=== PATIENT | female | born 1940 | race Caucasian/White ===

== ENCOUNTER → 2023-04-02 14:13 | Outpatient (REF) | payer MEDICARE, BC, SELFPAY | LOC: RAD 14:13 | PROVIDERS: ATTENDING PHYSICIAN Family Medicine | DX: R22.41 Localized swelling, mass and lump, right lower limb (principal) | CPT/HCPCS: 93971 ==

== ENCOUNTER 2023-04-04 15:27 | Emergency (ER) | payer MEDICARE, BC, SELFPAY ==
[2023-04-04 15:33] VITALS: BP 120/71; BMI 40.7
[2023-04-04 15:45] VITALS: BP 151/72
[2023-04-04 16:00] VITALS: BP 92/64
[2023-04-04 17:52] LABS: % Basophils 0.4 % (0-2); % Eosinophils 5.5 % (0-6); % Immature Granulocytes 0.4 % (0-0.5); % Lymphocytes 22.2 % (20.5-51.1); % Monocytes 8.3 % (1.7-9.3); % Neutrophils 63.2 % (42.2-75.2); Absolute Eosinophils 0.4 10^3/uL (0-0.7); Absolute Lymphocytes 1.7 10^3/uL (1.2-3.4); Absolute Monocytes 0.6 10^3/uL (0.1-0.6); Absolute Neutrophils 4.8 10^3/uL (1.4-6.5); Hematocrit 41.9 % (37.0-47.0); Hemoglobin 13.9 g/dL (12.0-16.0); Mean Corp Hgb Conc. 33.2 g/dL (33.0-37.0); Mean Corpuscular Hgb 28.4 pg (27.0-31.0); Mean Corpuscular Volume 85.5 fL (81.0-99.0); Mean Platelet Volume 9.8 fL (7.4-10.4); Nucleated Red Blood Cells % 0 %; Platelet Count 180 10^3/uL (130-400); Red Cell Dist. Width 15.8 % (11.5-14.5); White Blood Cell Count 7.6 10^3/uL (4.8-10.8)
[2023-04-04 18:06] LABS: ALT (SGPT) 23 U/L (0-35); AST (SGOT) 32 U/L (14-36); Albumin 3.8 g/dl (3.5-5.0); Alkaline Phosphatase 97 U/L (38-126); Blood Urea Nitrogen 14 mg/dl (7-17); Calcium 8.9 mg/dl (8.4-10.2); Carbon Dioxide 34 mmol/L (22-30); Chloride 96 mmol/L (98-107); Creatine Phosphokinase 103 U/L (30-135); Estimated Creatinine Clearance 73 ml/min; Glucose 84 mg/dl (70-99); Potassium 3.8 mmol/L (3.5-5.1); Sodium 134 mmol/L (135-145); Total Bilirubin 1.3 mg/dl (0.2-1.3); Total Protein 6.5 g/dl (6.3-8.2); eGFR > 60.00
--- NOTE | 2023-04-04 18:41 | ED.GENMED ---
History of Present Illness
General
Chief Complaint: DVT/Possible Blood Clot
Time Seen by Provider: 04/04/23 15:38
Travel History
Have you had any contact with someone who has COVID-19?: No
Do you have any symptoms of coronavirus? Fever > 100 degrees, chills, cough, shortness of breath, sore throat, loss of taste or smell, muscle aches, or headache?: No
History of Present Illness
History of Present Illness:
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 Had an outpatient DVT
ultrasound performed 2 days ago that was negative. She denies any injuries but does have to utilize the right leg for transfers frequently. She feels as though her chronic edema of the leg as well as redness of the right lower leg is worsened. No
fevers or chills. Denies any paresthesias to the leg.
Past History
Past History
ED Past Medical History: HTN, Hypercholesterolemia and Other (DVT, cervical disc disease, osteoarthritis, MRSA, DVT/PE); Negative Arrthythmia or IDDM
ED Past Surgical History: Orthopedic (Cervical-lumbar fusion, right shoulder replacement 2014, left knee replacement)
Social History
Tobacco: Non-smoker
Alcohol: None
Drug: None
Personal:
Living: with family
Employment: Retired
Family History
Family History: Hypertension
Review of Systems
Review of Systems
Allergies reviewed?: Yes
All Other Systems: ROS reviewed and negative except as documented in HPI and ROS
Phy Exam
Physical Exam
Physical Exam:
GEN: Well appearing, NAD, WDWN
Eyes: PERRLA, EOMs intact, no scleral icterus
HENT: NCAT, oral mucosa moist
Lungs: CTAB, no wheezes, rales, rhonchi, normal chest wall excursion
Cardiac: RRR, no M/R/G, no peripheral edema. Radial pulses 2+ bilat
Abdomen: S, NT, ND, NABS, no masses or hepatosplenomegaly
Neuro: AO x 3, no focal deficits to BUE/BLE, normal sensation throughout
MSK: Status post left BKA. Diffuse edema to the right leg noted to the knee. There is tenderness to the quadriceps musculature, pain is made worse with right knee flexion however flexion is normal. There is venous stasis dermatitis to the right
lower extremity, mild blanching with palpation. Right dorsalis pedis pulses 2+, sensation fully intact, no pallor
Skin: No rashes, petechiae. Normal color, no pallor or jaundice.
Psych: Calm, cooperative, proper hygiene
Course
Orders/Labs/Results
Orders:
Orders
04/04/23 16:14
CR Femur - Right Min 2 Vw Urgent
Comment:
Reason For Exam: non traumatic thigh pain
04/04/23 16:15
Blood Culture Q30M
WILLIAM Source: Blood/Venous
Specimen Description:
04/04/23 17:38
CPK [Creatine Phosphokinase] Urgent
Complete Blood Count/With Diff Urgent
Comprehensive Metabolic Panel Urgent
04/04/23 17:39
Blood Culture Q30M
WILLIAM Source: Blood/Venous
Specimen Description:
Abnormal Lab Results
04/04/23
17:38
RDW 15.8 H %
(11.5-14.5)
Sodium 134 L mmol/L
(135-145)
Chloride 96 L mmol/L
(98-107)
Carbon Dioxide 34 H mmol/L
(22-30)
Creatinine 0.5 L mg/dL
(0.6-1.0)
04/04/23 17:38
04/04/23 17:38
Vital Signs
Initial and Last Documented VS:
Initial Vital Signs
Temp Pulse Resp BP Pulse Ox
98.1 F 94 18 120/71 94
04/04/23 15:33 04/04/23 15:33 04/04/23 15:33 04/04/23 15:33 04/04/23 15:33
Last Documented Vital Signs
Temp Pulse Resp BP Pulse Ox
98.1 F 76 17 92/64 95
04/04/23 15:33 04/04/23 17:45 04/04/23 17:45 04/04/23 16:00 04/04/23 17:00
MDM/Problems Addressed
MDM/Problems Addressed:
Labs were obtained to evaluate for leukocytosis or elevated CK suggesting significant myositis or deep tissue infection. These test were reassuring. No need for repeat imaging from a DVT standpoint given that it was -2 days ago. Right femur x-ray
independently interpreted by me as negative for acute osseous abnormality. Likely soft tissue strain as a result of patient's need to balance herself on the leg for transfers. Pain is quite reproducible and there is no crepitus or erythema can
suggestive of an infectious etiology. She has strong pedal pulses and sensation thus do not suspect arterial insufficiency or peripheral arterial disease as a culprit. Will refer her to outpatient physical therapy given that we cannot prescribe
NSAIDs due to her blood thinner use
*Critical Care Note
Total Time (30-74mins, 75-104mins- exclusive of procedures): Not Applicable
ED Attending Note
-
Portions of this chart may have been created with voice recognition software.� Occasional wrong word or��sound alike� substitutions may have occurred due to the inherent limitations of voice recognition software.
Discharge Plan
Departure
Patient Disposition: Home (Routine Discharge)
Date of Disposition: 04/04/23
Time of Disposition: 18:44
Patient with high blood pressure during this ER visit?: No
Discharge Problem:
Strain of right quadriceps muscle
Instructions: Muscle Strain ED
Prescriptions:
No Action
atorvastatin [Lipitor] 40 MG tablet
40 mg PO HS
albuterol sulfate [Ventolin HFA] 90 MCG/PUFF HFA aerosol inhaler
2 puff inhalation R Q4HPRN PRN (Reason: sob)
vitamin B complex Capsule
1 cap PO DAILY
Refresh Optive 0.5-0.9 % Drops
1 drp BOTH EYES QIDPRN PRN (Reason: dry eyes)
cholecalciferol (vitamin D3) [Vitamin D3] 25 mcg (1,000 unit) Tablet,Chewable
50 mcg PO DAILY
ropinirole 2 MG tablet
8 mg PO QID@04,10,16,22
tramadol 50 mg Tablet
50 mg PO Q6H PRN (Reason: moderate to severe pain) Qty: 0
Patient Comments:
04/04/2023: last filled 08/31/22, 92 tabs for 23 days from [id number]
Eliquis 5 MG tablet
5 mg PO BID
pregabalin 150 mg capsule
150 mg PO BID
Patient Comments:
04/04/2023: last filled 01/01/23, 180 tabs for 90 days from [id number]
omeprazole 40 mg capsule,delayed release(DR/EC)
40 mg PO DAILY
nadolol 40 mg tablet
40 mg PO HS
Referrals:
Stef Flores MD [Family Provider] -
Interventions
Interventions:
*Risk Screen - Suicide Last Done: 04/04/23 15:33
*General Assessment Last Done: 04/04/23 15:33
*Neglect/Abuse Screening Last Done: 04/04/23 15:33
ED- Fall Risk Assessment Last Done: 04/04/23 17:51
*ED COVID-19 Vaccine History Last Done: 04/04/23 15:33
ED- Cardiac Assessment Last Done: 04/04/23 15:33
ED- Pulmonary Assessment Last Done: 02/21/24 16:06
ED-Peripheral Vascular Assessment Last Done: 04/04/23 15:33
ED-Skin Assessment Last Done: 04/04/23 15:33
== END 2023-04-04 19:52 | disposition home or self-care (01) ==
LOC: EMR 15:27
PROVIDERS: Physician Assistant; EMERGENCY PHYSICIAN Emergency Medicine; FAMILY PHYSICIAN Family Medicine
DX: S76.111A Strain of right quadriceps muscle, fascia and tendon, initial encounter (principal); X58.XXXA Exposure to other specified factors, initial encounter; I10 Essential (primary) hypertension; E78.00 Pure hypercholesterolemia, unspecified
CPT/HCPCS: 99284; 73552; 80053; 82550; 85025; 87040

== ENCOUNTER → 2023-05-15 12:28 | Outpatient (REF) | payer MEDICARE, BC, SELFPAY | LOC: MRI 12:28 | PROVIDERS: ATTENDING PHYSICIAN Student in an Organized Health Care Education/Training Program; PRIMARYCARE PHYSICIAN Family Medicine | DX: M25.551 Pain in right hip (principal); M54.16 Radiculopathy, lumbar region | CPT/HCPCS: 72148 ==

== ENCOUNTER 2023-09-03 13:11 | Emergency (ER) | payer MEDICARE, BC, SELFPAY ==
[2023-09-03 13:15] VITALS: BP 110/60
--- NOTE | 2023-09-03 13:39 | ED.GENMED ---
History of Present Illness
General
Chief Complaint: Abdominal Symptoms
Source: patient
Exam Limitations: none
Time Seen by Provider: 09/03/23 13:38
Nursing documentation reviewed up to this point in time: agreed with
History of Present Illness
History of Present Illness:
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
week, wound care nurse one day a week. She does not want us to deal with her wound as this was seen, cleansed and dressed by wound care nurse today. She is here with her nurse at bedside for general weakness, SOB, nausea and poor appetite past 3
days. Denies fever/chills. Denies chest pain, no SOB at rest but with exertion. Denies abdominal pain, other than the intermittent left side abd pain she's had since her bowel resection. Does feel nauseous, has had dry heaves 1-2 times daily for
past 3 days, last episode was 3 a.m. today. Denies diarrhea or constipation. Last BM 4 days ago which she states she only goes twice a week typically.
Past History
Past History
ED Past Medical History: HTN, Hypercholesterolemia and Other (DVT, cervical disc disease, osteoarthritis, MRSA, DVT/PE); Negative Arrthythmia or IDDM
ED Past Surgical History: Orthopedic (Cervical-lumbar fusion, right shoulder replacement 2014, left knee replacement)
Social History
Tobacco: Non-smoker
Alcohol: None
Drug: None
Personal:
Living: with family
Employment: Retired
Family History
Family History: Hypertension
Review of Systems
Review of Systems
Allergies reviewed?: Yes
All Other Systems: ROS reviewed and negative except as documented in HPI and ROS
Constitutional: Reports fatigue; Denies fever or chills
Respiratory: Reports trouble breathing (SOB with exertion)
Cardiac: Denies chest pain, diaphoresis, palpitations or syncope
ABD/GI: Reports abdominal pain, nausea, vomiting (retching, not actually vomiting) and anorexia; Denies diarrhea, constipated, bloody stools or black stools
: Denies dysuria, frequency or difficulty voiding
Musculoskeletal: Reports other (chronic lymphedema RLE)
Skin: Reports other (chronic wound RLE followed by Derm Dr. Castañeda. 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 Is on second regimen of Bactrim this month, on day 6 of 14. )
Neurological: Reports no symptoms
Phy Exam
Physical Exam
Physical Exam:
GENERAL: No acute distress. A&Ox3.
CONSTITUTIONAL: Afebrile.
EYES: PERRL, conjunctivae normal
Neck: Supple
ENMT: moist mucus membranes, Pharynx nl
RESPIRATORY: Regular respirations, nonlabored, lungs clear.
CARDIOVASCULAR: Regular rate and rhythm, no murmurs, no rubs.
GI: Soft, nontender, normal BS
MUSCULOSKELETAL: Moves with ease. Well perfused.
SKIN: Warm, dry, pink
PSYCH: Normal mood and affect. Well kept, interactive and appropriate
NEUROLOGIC: Awake, alert and oriented. No focal neurological deficits
Course
Orders/Labs/Results
Orders:
Orders
09/03/23 14:02
Electrocardiogram (*1) Urgent
Reason for Study: Chest Pain
Cardiac Monitoring- Treatment ONCE
EKG- Treatment ONCE
IV Insert/Care/Rem.- Treatment PRN
09/03/23 14:03
Ondansetron Injectable [Zofran] 4 mg IV NOW STA
CR Chest - 2 Views Urgent
Comment:
Reason For Exam: SOB
09/03/23 14:14
Complete Blood Count/With Diff Urgent
Comprehensive Metabolic Panel Urgent
Lipase Urgent
NT-proBNP Urgent
Troponin I Urgent
09/03/23 14:41
Urinalysis Reflex To Culture Urgent
Date Specimen was Collected: 09/03/23
Time Specimen was Collected: 14:37
09/03/23 16:21
Ondansetron Injectable [Zofran] 4 mg .ROUTE .STK-MED ONE
Abnormal Lab Results
09/03/23 09/03/23
14:14 14:41
RDW 15.9 H %
(11.5-14.5)
Carbon Dioxide 31 H mmol/L
(22-30)
Glucose 107 H mg/dl
(70-99)
Total Protein 6.1 L g/dl
(6.3-8.2)
Urine Bilirubin 1+ A
(Negative)
09/03/23 14:14
09/03/23 14:14
Vital Signs
Initial and Last Documented VS:
Initial Vital Signs
Temp Pulse Resp BP Pulse Ox
98.1 F 74 18 110/60 96
09/03/23 13:15 09/03/23 13:15 09/03/23 13:15 09/03/23 13:15 09/03/23 13:15
Last Documented Vital Signs
Temp Pulse Resp BP Pulse Ox
98.1 F 63 20 110/55 95
09/03/23 13:15 09/03/23 16:30 09/03/23 16:30 09/03/23 16:00 09/03/23 16:00
MDM/Problems Addressed
Differential Diagnosis Includes:
CHF, UTI, dehydration.
MDM/Problems Addressed:
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
week, wound care nurse one day a week. She does not want us to deal with her wound as this was seen, cleansed and dressed by wound care nurse today. She is here with her nurse at bedside for general weakness, SOB, nausea and poor appetite past 3
days. Denies fever/chills. Denies chest pain, no SOB at rest but with exertion. Denies abdominal pain, other than the intermittent left side abd pain she's had since her bowel resection. Does feel nauseous, has had dry heaves 1-2 times daily for
past 3 days, last episode was 3 a.m. today. Denies diarrhea or constipation. Last BM 4 days ago which she states she only goes twice a week typically.
EKG NSR
CBC normal
CMP normal
Troponin normal
BNP normal
UA negative
Chest x-ray no active pulmonary process
Nothing worrisome in today's workup, patient is stable for discharge
She has close nursing care daily. DC's to care of her nurse
Chronic conditions affecting care: HTN and Arrhythmia (Afib on eliquis)
*Critical Care Note
Total Time (30-74mins, 75-104mins- exclusive of procedures): Not Applicable
Patient Management
Social determinants of health affecting care: Strong social support
ED Attending Note
-
Portions of this chart may have been created with voice recognition software.� Occasional wrong word or��sound alike� substitutions may have occurred due to the inherent limitations of voice recognition software.
Discharge Plan
Departure
Patient Disposition: Home (Routine Discharge)
Date of Disposition: 09/03/23
Time of Disposition: 15:57
Patient with high blood pressure during this ER visit?: No
Condition: Good
Discharge Problem:
Nausea, FLORES (dyspnea on exertion)
Instructions: Nausea and Vomiting, Adult (DC), Shortness of Breath, Adult ED
Prescriptions:
New
ondansetron 4 mg tablet,disintegrating
4 mg PO Q8H PRN (Reason: nausea and vomiting) 4 Days Qty: 10 0RF
No Action
atorvastatin [Lipitor] 40 MG tablet
40 mg PO HS
albuterol sulfate [Ventolin HFA] 90 MCG/PUFF HFA aerosol inhaler
2 puff inhalation R Q4HPRN PRN (Reason: sob)
Refresh Optive 0.5-0.9 % Drops
2 drp BOTH EYES BIDPRN PRN (Reason: dry eyes)
ropinirole 2 MG tablet
8 mg PO TID
Eliquis 5 MG tablet
5 mg PO BID
pregabalin 150 mg capsule
150 mg PO BID
omeprazole 40 mg capsule,delayed release(DR/EC)
40 mg PO DAILY
nadolol 40 mg tablet
40 mg PO DAILY
ipratropium-albuterol 0.5 mg-3 mg(2.5 mg base)/3 mL Solution For Nebulization
3 ml INHALATION R Q6HPRN PRN (Reason: sob)
Theragen Tablet
1 tab PO DAILY
Aquaphor Ointment
1 applic TOPICAL TIDPRN PRN (Reason: dry skin)
sulfamethoxazole-trimethoprim [Bactrim DS] 800-160 mg Tablet
1 tab PO BID
acetaminophen [Tylenol Extra Strength] 500 mg Tablet
1,000 mg PO Q8HPRN PRN (Reason: mild pain)
ascorbic acid (vitamin C) [Vitamin C] 500 mg Tablet
500 mg PO DAILY
bumetanide 1 mg Tablet
1 mg PO MOWEFR
mupirocin 2 % Ointment
1 applic TOPICAL DAILY
cyclobenzaprine 5 mg Tablet
0.25 mg PO HSPRN PRN (Reason: muscle spasms)
cholecalciferol (vitamin D3) [Vitamin D3] 25 mcg (1,000 unit) Tablet
25 mcg PO DAILY
Unknown Antifungal cream
1 applic topical DAILY
Referrals:
Stef Flores MD [Family Provider] - Follow up in 5-7 days
Activity Restrictions/Additional Instructions:
As we discussed, there is nothing worrisome in your workup here today. Specifically no sign of a heart attack, congestive heart failure or infection.
I sent a prescription to your pharmacy for Zofran to use if needed for nausea.
See you doctor in 5-7 days for recheck
Interventions
Interventions:
*Risk Screen - Suicide Last Done: 09/03/23 13:15
*General Assessment Last Done: 09/03/23 13:15
*Neglect/Abuse Screening Last Done: 09/03/23 13:15
ED- Fall Risk Assessment Last Done: 09/03/23 13:48
*ED COVID-19 Vaccine History Last Done: 09/03/23 13:15
*Nursing Disposition Last Done: 09/03/23 16:54
JG-Lrrvbq-Lkkhfdhexn Assessment Last Done: 09/03/23 14:04
Discharge Date and Time
Discharge Date/Time: 09/03/23 16:56
Print Language: PRYDEINIG
--- NOTE | 2023-09-03 13:42 | EDRN ---
Pt took her Requip at 13:33 for her restless leg.
[2023-09-03 13:45] VITALS: BMI 38.2
--- NOTE | 2023-09-03 13:45 | EDRN ---
Leandro CHAPA in room w/pt.
[2023-09-03 14:04] VITALS: BP 95/77
[2023-09-03 14:24] LABS: % Basophils 0.7 % (0-2); % Eosinophils 3.3 % (0-6); % Immature Granulocytes 0.3 % (0-0.5); % Lymphocytes 29.9 % (20.5-51.1); % Monocytes 7.1 % (1.7-9.3); % Neutrophils 58.7 % (42.2-75.2); Absolute Basophils 0.1 10^3/uL (0-0.2); Absolute Eosinophils 0.2 10^3/uL (0-0.7); Absolute Lymphocytes 2.2 10^3/uL (1.2-3.4); Absolute Monocytes 0.5 10^3/uL (0.1-0.6); Absolute Neutrophils 4.3 10^3/uL (1.4-6.5); Hematocrit 40.8 % (37.0-47.0); Hemoglobin 13.5 g/dL (12.0-16.0); Mean Corp Hgb Conc. 33.1 g/dL (33.0-37.0); Mean Corpuscular Hgb 28.1 pg (27.0-31.0); Mean Platelet Volume 9.9 fL (7.4-10.4); Nucleated Red Blood Cells % 0 %; Platelet Count 259 10^3/uL (130-400); Red Cell Dist. Width 15.9 % (11.5-14.5); White Blood Cell Count 7.4 10^3/uL (4.8-10.8)
--- NOTE | 2023-09-03 14:30 | EDRN ---
Pt having POX 81-90% on room air and placed on oxygen at 2lpm via NC. IMoon CHAPA notified of POX and oxygen.
[2023-09-03 14:45] LABS: ALT (SGPT) 21 U/L (0-35); AST (SGOT) 35 U/L (14-36); Albumin 3.6 g/dl (3.5-5.0); Alkaline Phosphatase 71 U/L (38-126); Blood Urea Nitrogen 13 mg/dl (7-17); Calcium 9.3 mg/dl (8.4-10.2); Carbon Dioxide 31 mmol/L (22-30); Chloride 99 mmol/L (98-107); Estimated Creatinine Clearance 62 ml/min; Glucose 107 mg/dl (70-99); Lipase 130 U/L (23-300); Potassium 4.6 mmol/L (3.5-5.1); Sodium 135 mmol/L (135-145); Total Bilirubin 0.6 mg/dl (0.2-1.3); Total Protein 6.1 g/dl (6.3-8.2); eGFR > 60.00
[2023-09-03 14:50] LABS: NT-proBNP 504 pg/ml; Troponin I < 0.012 ng/ml
[2023-09-03 15:02] LABS: Urine Albumin Negative (Neg - Trace); Urine Bilirubin 1+ (Negative); Urine Character Clear (Clear); Urine Color Yellow; Urine Glucose Negative (Negative); Urine Ketone Negative (Negative); Urine Leukocyte Negative (Negative); Urine Nitrite Negative (Negative); Urine Occult Blood Negative (Negative); Urine Urobilinogen Negative (Neg - 1+)
[2023-09-03 15:24] VITALS: BP 109/50
[2023-09-03 16:00] VITALS: BP 110/55
--- NOTE | 2023-09-03 16:00 | EDRN ---
Leandro Bland BANQUET COOK in to see pt.
--- NOTE | 2023-09-03 16:20 | EDRN ---
Pt having no further nausea at this time. Pt rated nausea on arrival at 4/10 and said it was 2/10 at 16:20.
[2023-09-03] MEDS: ZOFRAN 4 MG IV (16:23)
== END 2023-09-03 16:56 | disposition home or self-care (01) ==
LOC: EMR 13:11
PROVIDERS: Registered Nurse; EMERGENCY PHYSICIAN Emergency Medicine; FAMILY PHYSICIAN Family Medicine
DX: R11.2 Nausea with vomiting, unspecified (principal); R06.09 Other forms of dyspnea; R53.1 Weakness; R63.0 Anorexia; R10.9 Unspecified abdominal pain; T81.30XA Disruption of wound, unspecified, initial encounter; X58.XXXA Exposure to other specified factors, initial encounter; I48.91 Unspecified atrial fibrillation; I10 Essential (primary) hypertension; E78.00 Pure hypercholesterolemia, unspecified; K21.9 Gastro-esophageal reflux disease without esophagitis; M19.90 Unspecified osteoarthritis, unspecified site; I89.0 Lymphedema, not elsewhere classified; E03.9 Hypothyroidism, unspecified; M50.90 Cervical disc disorder, unspecified, unspecified cervical region; G47.30 Sleep apnea, unspecified; M81.0 Age-related osteoporosis without current pathological fracture; Z96.652 Presence of left artificial knee joint; Z96.611 Presence of right artificial shoulder joint; Z96.653 Presence of artificial knee joint, bilateral; Z79.01 Long term (current) use of anticoagulants; M43.22 Fusion of spine, cervical region; Z98.1 Arthrodesis status; Z98.0 Intestinal bypass and anastomosis status; Z89.512 Acquired absence of left leg below knee; Z86.14 Personal history of Methicillin resistant Staphylococcus aureus infection; Z86.73 Personal history of transient ischemic attack (TIA), and cerebral infarction without residual deficits; Z86.718 Personal history of other venous thrombosis and embolism; Z86.711 Personal history of pulmonary embolism; Z88.1 Allergy status to other antibiotic agents; Z88.0 Allergy status to penicillin; Z88.8 Allergy status to other drugs, medicaments and biological substances; Z91.048 Other nonmedicinal substance allergy status
CPT/HCPCS: 99284; 96374; 51701; 71046; 80053; 81003; 83690; 83880; 84484; 85025; 93005

== ENCOUNTER 2023-09-04 18:25 | Inpatient (IN) | payer MEDICARE, BC, SELFPAY ==
[2023-09-04] VITALS (31 sets, daily range): BP systolic 67–161; BP diastolic 41–124; BMI 39.9; BMI 39.7
--- NOTE | 2023-09-04 16:24 | ED.GENMED ---
History of Present Illness
General
Chief Complaint: Blood Pressure Problem
Source: home health care provider
Time Seen by Provider: 09/04/23 16:12
History of Present Illness
History of Present Illness:
83-year-old female presents to the emergency room for lethargy, confusion, abnormal vital signs at home. Patient brought in by her visiting nurse. Patient was seen yesterday for malaise. Workup at that time did not reveal any significant lab
abnormalities. Her urine did not show signs of infection. Patient has chronic wounds on her right lower extremity and is taking Bactrim. Patient evidently fell early in the morning try to get a bed. 911 was called to help her back in the bed.
When visiting nurse came today they found her in the above state. Her pulse ox was low in the 80s. Her fingers appeared blue per the nurse. Upon arrival to the emergency room here the patient is found to be hypotensive.
Past History
Past History
ED Past Medical History: HTN, Hypercholesterolemia and Other (DVT, cervical disc disease, osteoarthritis, MRSA, DVT/PE); Negative Arrthythmia or IDDM
ED Past Surgical History: Orthopedic (Cervical-lumbar fusion, right shoulder replacement 2014, left knee replacement)
Social History
Tobacco: Non-smoker
Alcohol: None
Drug: None
Personal:
Living: with family
Employment: Retired
Family History
Family History: Hypertension
Phy Exam
Physical Exam
Physical Exam:
General: Very confused, not able to answer questions, appears ill
Vitals: Febrile, hypotensive, hypoxic
Head: Atraumatic
Eyes: Pupils equal, EOMI
Throat: Airway intact, no exudates, dry mucosa
Neck: Trachea midline
Lungs: Clear and equal b/l
Heart: Regular rate, no murmurs
Abd: Soft, no apparent tenderness, No pulsatile mass
Neuro: Grossly nonfocal
Skin: Warm, dry, no rash
Extremities: Left AKA, decreased pulse right lower extremity
Course
Orders/Labs/Results
Orders:
Orders
09/04/23 Dinner
Regular
At Your Request: Limited Participation
09/04/23 16:10
Electrocardiogram (*1) Urgent
Reason for Study: Other
Other Reason for Exam: Possible Sepsis
Cardiac Monitoring- Treatment ONCE
EKG- Treatment ONCE
IV Insert/Care/Rem.- Treatment PRN
O2 Therapy [RESP] Urgent
Titrate/Wean O2 to maintain O2 sat greater than (%): 93
Special Instructions: TO MAINTAIN CONTINUOUS O2 SATS > OR = 93%
Pulse Ox/cont/shift [RESP] Urgent
Quantity: 1
Special Instructions: CONTINUOUS
09/04/23 16:13
Complete Blood Count/With Diff Urgent
Comprehensive Metabolic Panel Urgent
Lactic Acid Q4H
Comment: ON ICE, CANCEL 2ND ORDER IF FIRST LACTIC ACID LEVEL <2
09/04/23 16:20
Blood Culture Urgent
WILLIAM Source: Blood/Venous
Specimen Description:
09/04/23 16:22
Cardiac Monitoring- Treatment ONCE
0.9% Sodium Chloride 1000 ml [Nss] 1,400 ml IV NOW STA
Cefepime HCl [Maxipime] 2,000 mg IV NOW STA
CR Chest Portable - 1 View Urgent
Comment:
Reason For Exam: hypotension
Reason Study Needs to be Portable: Patient Unstable
09/04/23 16:27
COVID-19 Antigen Urgent
Source: Nasal Swab
09/04/23 16:40
Vancomycin [Vancocin] 2,000 mg 0.9% Sodium Chloride 500 ml [Nss] 500 ml IV NOW
09/04/23 17:18
0.9% Sodium Chloride 500 ml [Nss] 500 ml IV BOLUS
09/04/23 17:30
0.9% Sodium Chloride 1000 ml [Nss] 1,000 ml IV 200 mls/hr
09/04/23 17:52
Admit/Transfer Patient As Directed
Co-Sign Provider:
Level of Care: Inpatient admission
Assign to:: ICU
Physician / Group: jose antonio
Diagnosis: sepsis secondary to right lower extremity infection
Reason for Hospitalization: sepsis right lower extremity cellulitis/wounds
Expected length of stay greater than two midnights?: Yes
ELOS- Estimated Length of Stay in days: 2
I certify the patient meets the requirements for IP care: Yes
09/04/23 17:53
Code Status As Directed
Resuscitation Status: Full Code
09/04/23 18:00
Dexamethasone Sod Phosphate [Decadron] 6 mg IV Q24H
09/04/23 18:22
Wound Culture [Wound/Abscess/Other Culture] Urgent
WILLIAM Source: Leg
Specimen Description: Right
Date Specimen was Collected: 09/04/23
Time Specimen was Collected: 18:16
09/04/23 19:42
0.9% Sodium Chloride 1000 ml [Nss] 1,000 ml IV 100 mls/hr
Acetaminophen [Tylenol] 650 mg PO Q4HPRN PRN
Albuterol [ProAIR HFA INHALER] 2 puff INH R Q4HPRN PRN
Ipratropium/Albuterol Sulfate [Duoneb] 3 ml INH R Q6HPRN PRN
Ondansetron Injectable [Zofran] 4 mg IV Q6HPRN PRN
Polyethylene Glycol Powder [Miralax] 17 grams PO DAILY
VANCOMYCIN Pharmacy to Dose [VANCOCIN Pharmacy to Dose] 1 each Pharmacy To Prepare [Call Pharmacy To Prepare] 0 ml IV PER PROTOCOL
09/04/23 19:42
WOUND/OSTOMY CONSULT Routine
Reason for Consult: right leg infection
VTE Contraindication Routine
VTE Mechanical Device Contraindication: Medical Contraindication
Pharmocologic Contraindication: Medical Contraindication
Activity As Directed
Activity Level: As Tolerated
Vital Signs As Directed
Frequency: Per unit guidelines
09/04/23 19:52
Cyclobenzaprine HCl [Flexeril] 5 mg PO HSPRN PRN
09/04/23 19:56
Petrolatum/Mineral Oil [Hydrophor] See Dose Instructions TOPICAL TIDPRN PRN
09/04/23 19:57
Artificial Tears (Pf) [Refresh Eye Drops (Pf)] 2 drops BOTH EYES BIDPRN PRN
09/04/23 20:00
Apixaban [Eliquis] 5 mg PO BID
Atorvastatin [Lipitor] 40 mg PO DAILY@1999
Docusate Sodium [Colace] 100 mg PO BID
Pregabalin [Lyrica] 150 mg PO BID
Ropinirole [Requip] 8 mg PO TID@0800,1400,1999
09/04/23 20:15
Lactic Acid Q4H
Comment: ON ICE, CANCEL 2ND ORDER IF FIRST LACTIC ACID LEVEL <2
09/05/23 04:00
Cefepime HCl [Maxipime] 2,000 mg IV Q12H
09/05/23 06:00
Complete Blood Count/With Diff IN AM
Comprehensive Metabolic Panel IN AM
09/05/23 08:00
Ascorbic Acid [Vitamin C] 500 mg PO DAILY
Cholecalciferol (Vitamin D3) [VITAMIN D3 (cholecalciferol)] 25 mcg PO DAILY
Multivitamin [Theragran] 1 tablet PO DAILY
Mupirocin [Bactroban 2% Ointment] See Dose Instructions TOPICAL DAILY
Nadolol [Corgard] 40 mg PO DAILY
Pantoprazole [Protonix] 40 mg PO DAILY
Abnormal Lab Results
09/04/23 09/04/23
16:13 16:27
MCHC 32.7 L g/dL
(33.0-37.0)
RDW 16.1 H %
(11.5-14.5)
Absolute Lymphs (auto) 0.8 L 10^3/uL
(1.2-3.4)
Neutrophils % 77.8 H %
(42.2-75.2)
Lymphocytes % 10.8 L %
(20.5-51.1)
Potassium 5.3 H mmol/L
(3.5-5.1)
Carbon Dioxide 34 H mmol/L
(22-30)
Total Protein 5.6 L g/dl
(6.3-8.2)
Albumin 3.1 L g/dl
(3.5-5.0)
SARS-CoV-2 Antigen Positive A
(Negative)
09/04/23 16:13
09/04/23 16:13
Vital Signs
Initial and Last Documented VS:
Initial Vital Signs
Temp Pulse Resp BP Pulse Ox
101.1 F H 91 19 76/49 93
09/04/23 15:59 09/04/23 15:59 09/04/23 15:59 09/04/23 15:59 09/04/23 15:59
Last Documented Vital Signs
Temp Pulse Resp BP Pulse Ox
99.8 F 67 13 138/70 96
09/04/23 21:59 09/04/23 22:15 09/04/23 22:15 09/04/23 22:00 09/04/23 22:15
MDM/Problems Addressed
Differential Diagnosis Includes:
sepsis from.....uti/pneumonia/wound infection/covid.
MDM/Problems Addressed:
Pt did have + covid. She also has hypoxia and hypotension. Her BP initially responded to ivf with MAP >65 after sepsis fluid bolus. Additional bolus and normal saline infusion ordered. Pt started on broad spectrum antibiotics (cefepime and
vanco) Pt has tolerated Keflex in the past. Pt roosevelt has covid with bacterial co-infection. She has left pleural effusion vs pneumonia on one-view chest x-ray.
Chronic conditions affecting care: HTN and Arrhythmia (a fib)
*Radiology
Radiology exam reviewed: preliminary read by ED provider (left pleural effusion/infiltrate)
*Pulse Oximetry
Patient hypoxic: yes
*EKG
Interpreted by ED Provider?: Yes
Interpretation: normal
Heart Rate: 78
Rate: normal
Rhythm: sinus
Barron: normal axis
Interval: normal interval
QRS Pattern: normal QRS
Ischemia: no ischemia
*Molder Punch Interpretation
Rate: normal
Interpretation: normal
Rhythm: sinus
*Critical Care Note
Total Time (30-74mins, 75-104mins- exclusive of procedures): 35 min
comment:
Critical care statement: A total of 35 minutes of critical care time was provided for this patient. This includes management of unstable vital signs, evaluation of the patient at bedside, reviewing the patient's pertinent medical records, discussion
with consultants, review of old EKGs and review of pertinent medical records. This time with separate from time utilized to perform the aforementioned documented procedures
ED Attending Note
-
Portions of this chart may have been created with voice recognition software.� Occasional wrong word or��sound alike� substitutions may have occurred due to the inherent limitations of voice recognition software.
Discharge Plan
Departure
Patient Disposition: Admit
Date of Disposition: 09/04/23
Time of Disposition: 17:27
Admit to: IMU
Presentation/result/management discussed w/ accepting MD/DO: Hospitalist
Condition: Serious
Discharge Problem:
Sepsis, COVID-19, Cellulitis of leg, right
Interventions
Interventions:
*Risk Screen - Suicide Last Done: 09/04/23 15:59
*General Assessment Last Done: 09/04/23 15:59
*Neglect/Abuse Screening Last Done: 09/04/23 15:59
ED- Fall Risk Assessment Last Done: 09/04/23 19:50
*ED COVID-19 Vaccine History Last Done: 09/04/23 19:50
*Nursing Disposition Last Done: 09/04/23 19:50
ED- Cardiac Assessment Last Done: 09/04/23 16:07
ED- Neurological Assessment Last Done: 09/04/23 16:07
ED- Pulmonary Assessment Last Done: 09/04/23 16:07
Discharge Date and Time
Discharge Date/Time: 09/04/23 19:51
[2023-09-04 16:26] LABS: % Basophils 0.3 % (0-2); % Eosinophils 3.2 % (0-6); % Immature Granulocytes 0.3 % (0-0.5); % Lymphocytes 10.8 % (20.5-51.1); % Monocytes 7.6 % (1.7-9.3); % Neutrophils 77.8 % (42.2-75.2); Absolute Eosinophils 0.2 10^3/uL (0-0.7); Absolute Lymphocytes 0.8 10^3/uL (1.2-3.4); Absolute Monocytes 0.5 10^3/uL (0.1-0.6); Absolute Neutrophils 5.4 10^3/uL (1.4-6.5); Hematocrit 38.5 % (37.0-47.0); Hemoglobin 12.6 g/dL (12.0-16.0); Mean Corp Hgb Conc. 32.7 g/dL (33.0-37.0); Mean Corpuscular Hgb 28.3 pg (27.0-31.0); Mean Corpuscular Volume 86.3 fL (81.0-99.0); Mean Platelet Volume 9.5 fL (7.4-10.4); Nucleated Red Blood Cells % 0 %; Platelet Count 212 10^3/uL (130-400); Red Blood Cell Count 4.46 10^6/uL (4.20-5.40); Red Cell Dist. Width 16.1 % (11.5-14.5)
[2023-09-04] MEDS: MAXIPIME 2000 MG IV (16:31)
[2023-09-04] MEDS: NSS 1400 ML IV (16:31)
[2023-09-04 16:35] LABS: ALT (SGPT) 19 U/L (0-35); AST (SGOT) 30 U/L (14-36); Albumin 3.1 g/dl (3.5-5.0); Alkaline Phosphatase 71 U/L (38-126); Blood Urea Nitrogen 12 mg/dl (7-17); Calcium 8.4 mg/dl (8.4-10.2); Carbon Dioxide 34 mmol/L (22-30); Chloride 101 mmol/L (98-107); Estimated Creatinine Clearance 61 ml/min; Glucose 91 mg/dl (70-99); Lactic Acid 1.1 mmol/L (0.7-2.0); Potassium 5.3 mmol/L (3.5-5.1); Sodium 136 mmol/L (135-145); Total Bilirubin 0.4 mg/dl (0.2-1.3); Total Protein 5.6 g/dl (6.3-8.2); eGFR > 60.00
[2023-09-04 16:51] LABS: COVID-19 Antigen Positive (Negative)
[2023-09-04] MEDS: VANCOCIN 540 MG IV (16:58)
[2023-09-04] MEDS: NSS 500 IV (17:25)
--- NOTE | 2023-09-04 17:58 | HPS.HSE ---
Family Physician
-
Family Physician: Stef Flores
Chief Complaint
-
malaise
History of Present Illness
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
thyroidectomy, presenting for lethargy and confusion and abnormal vital signs at home. Today patient was nauseous and had an episode of vomiting. History obtained from visiting nurse.
Patient came to the emergency room yesterday and was seen for malaise. Workup at that time was negative for UTI or any lab abnormalities. Patient has chronic wounds in her right lower extremity for the past few months which are chronically
draining and is taking Bactrim for past 2 weeks. She was refusing to see wound care. She recently had a wound culture few weeks ago which showed stenotrophomonas
She evidently fell early in the morning and 911 was called to help her get back into the bed. When visiting nurse arrived they found her pulse ox was low in the 80s. Fingers appeared blue. Patient was hypotensive upon arrival to the emergency
room.
Patient denies any shortness of breath or cough. Her currently has COVID.
Patient is complaining of abdominal pain. She has not had a bowel movement in 4 days and has not been compliant with Colace. No diarrhea.
Patient does not smoke or drink alcohol.
Medical History
Past Medical History
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
Past Surgical History: Reports Other ( Orthopedic (Cervical-lumbar fusion, right shoulder replacement 2014, left knee replacement))
Social History
Tobacco: Non-smoker
Alcohol: None
Drug: None
Family History
Family History: Not pertinent
Allergies / Home Medications
Allergies reflects when Allergies were last updated in [facility].
Home Medications with original date entered in [facility]
Allergy/Medication List:
Allergies
Allergy/AdvReac Type Severity Reaction Status Date / Time
adhesive [Adhesive] Allergy Itching/RED Verified 09/04/23 15:58
NESS
Aminoglycosides Allergy Pharmacy Verified 09/04/23 15:58
to Review
azithromycin [Azithromycin] Allergy Pharmacy Verified 09/04/23 15:58
to Review
cefazolin Allergy Pharmacy Verified 09/04/23 15:58
to Review
celecoxib [From Celebrex] Allergy started to Verified 09/04/23 15:58
break out
with sores
Cephalosporins Allergy Pharmacy Verified 09/04/23 15:58
to Review
clindamycin [Clindamycin] Allergy Pharmacy Verified 09/04/23 15:58
to Review
- just
took in
April
doxycycline Allergy Pharmacy Verified 09/04/23 15:58
to Review
erythromycin base Allergy CHEST PAIN Verified 09/04/23 15:58
furosemide [From Lasix] Allergy 'just Verified 09/04/23 15:58
doesn't
feel good'
kanamycin Allergy Pharmacy Verified 09/04/23 15:58
to Review
Penicillins Allergy pt denies; Verified 09/04/23 15:58
says had
in 02/24
Tetracyclines Allergy Unknown Verified 09/04/23 15:58
Home Medications
albuterol sulfate 90 mcg/actuation aerosol inhaler (Ventolin HFA) 2 puff inhalation R Q4HPRN PRN sob 06/22/20
atorvastatin 40 mg tablet (Lipitor) 40 mg PO HS High cholesterol 06/22/20
carboxymethylcellulose 0.5 %-glycerin 0.9 % eye drops (Refresh Optive) 2 drp BOTH EYES BIDPRN PRN dry eyes 07/25/22
ropinirole 2 mg tablet 8 mg PO TID Neurological Condition 07/25/22
apixaban 5 mg tablet (Eliquis) 5 mg PO BID 04/04/23
nadolol 40 mg tablet 40 mg PO DAILY 04/04/23
omeprazole 40 mg capsule,delayed release 40 mg PO DAILY 04/04/23
pregabalin 150 mg capsule 150 mg PO BID 04/04/23
Unknown Antifungal 1 applic topical DAILY 09/03/23
acetaminophen 500 mg tablet (Tylenol Extra Strength) 1,000 mg PO Q8HPRN PRN mild pain 09/03/23
ascorbic acid (vitamin C) 500 mg tablet (Vitamin C) 500 mg PO DAILY 09/03/23
bumetanide 1 mg tablet 1 mg PO MOWEFR 09/03/23
cholecalciferol (vitamin D3) 25 mcg (1,000 unit) tablet (Vitamin D3) 25 mcg PO DAILY 09/03/23
cyclobenzaprine 5 mg tablet 5 mg PO HSPRN PRN muscle spasms 09/03/23
ipratropium 0.5 mg-albuterol 3 mg (2.5 mg base)/3 mL nebulization soln 3 ml inhalation R Q6HPRN PRN sob 09/03/23
mineral oil-hydrophil petrolat topical ointment 1 applic topical TIDPRN PRN dry skin 09/03/23
mupirocin 2 % topical ointment 1 applic topical DAILY right leg 09/03/23
sulfamethoxazole 800 mg-trimethoprim 160 mg tablet (Bactrim DS) 1 tab PO BID 09/03/23
therapeutic multivitamin 1 tab PO DAILY 09/03/23
ondansetron 4 mg disintegrating tablet 4 mg PO Q8HPRN PRN nausea and vomiting 09/04/23
Review of Systems
-
History Source: Patient
A 12 point ROS was completed and negative except as noted: Yes
Constitutional: Reports No Symptoms
EENT: Reports No Symptoms
Respiratory: Reports No Symptoms
Cardiac: Reports No Symptoms
Abdomen/GI: Reports See HPI
: Reports No Symptoms
Musculoskeletal: Reports No Symptoms
Skin: Reports See HPI
Neurological: Reports No Symptoms
Endocrine: Reports No Symptoms
Hematologic/Lymphatic: Reports No Symptoms
Psych: Reports No Symptoms
Physical Exam
Vital Signs
Vital Signs
Temp Pulse Resp BP Pulse Ox
101.1 F H 80 14 93/70 93
09/04/23 16:30 09/04/23 16:30 09/04/23 16:30 09/04/23 16:30 09/04/23 16:30
Physical Exam
General: Well Developed, Well Nourished and No Apparent Distress
HEENT: NormoCephalic, Moist mucous membranes and Atraumatic
Respiratory: Clear
Cardiac: S1/S2 and Regular Rhythm; No Murmur or Rub
GI: Soft, Non Distended, Normal Bowel Sounds and Tender (diffusely ); No Organomegaly
Rectal: Deferred by Provider
Musculoskeletal: No Clubbing, No Cyanosis and No Edema
Skin: Other (right leg swelling, erythema, discharge ); No Rash
Neuro: Nonfocal/grossly intact
Laboratory Results
-
09/04/23 16:13
09/04/23 16:13
Laboratory Results
Lactic Acid 1.1 mmol/L (0.7-2.0) 09/04/23 16:13
Total Bilirubin 0.4 mg/dl (0.2-1.3) 09/04/23 16:13
AST 30 U/L (14-36) 09/04/23 16:13
ALT 19 U/L (0-35) 09/04/23 16:13
Alkaline Phosphatase 71 U/L (38-126) 09/04/23 16:13
Data Reviewed
-
Lab Data: Labs Reviewed by me
Old Records: Reviewed
Impression/Plan
-
IMPRESSION:
PLAN:
# Sepsis (fever, hypotension) likely source chronic right lower extremity cellulitis superimposed on underlying lymphedema
-Picture from visiting nurse show diffuse erythema and weeping of right lower extremity possibly secondary to underlying lymphedema
-Wound culture recently grew stenotrophomonas
-Check wound culture, blood cultures
-IV fluids, hold Bumex
-Vancomycin/cefepime
-Wound care consulted
# Hypoxic respiratory insufficiency secondary to COVID infection
-On 3 L oxygen
-Chest x-ray shows opacity involving the left lateral costophrenic angle, patchy parenchymal opacity within the left lower lung which could be atelectasis versus pneumonia
-Dexamethasone 6 mg daily
# Hyperkalemia secondary to Bactrim
-Hold Bactrim
# Abdominal pain secondary to constipation
-No bowel movement in 4 days
-Start MiraLAX, Colace
History of CVA
History of PE/DVT
Paroxysmal atrial fibrillation
-Continue Eliquis
Chronic HFpEF
-Hold Bumex
-Continue nadolol
Essential hypertension
Hyperlipidemia
-Continue statin
GERD
-Continue omeprazole
Restless leg syndrome
-Continue ropinirole
Spinal stenosis
-Continue cyclobenzaprine
Neuropathy
-Continue pregabalin
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
History of partial thyroidectomy
Morbid obesity
Full code
DVT prophylaxis�Eliquis
Regular diet
[2023-09-04] MEDS: DECADRON 6 MG IV (18:08)
[2023-09-04] MEDS: NSS 1000 IV (18:09)
[2023-09-04] MEDS: LEVOPHED 250 IV (18:40)
--- NOTE | 2023-09-04 20:09 | PHA.VAN.IN ---
Assessment
- Assessment
Renal Function: Appears similar to baseline
Maximum Temperature: 101.1 F rectal 09/03 @ 1559
Concomitant Antimicrobials: cefepime
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
- Previous Dosing Experience
Previous Regimen: vanc 1000mg Q12H
Date of Regimen: 08/20/18 - 08/26/18
Provided Trough of: 9 - dose was then adjusted to vanc 1250mg Q12H but no further levels drawn
Patient's SCR is: Similar to previous dosing experience
Patient's weight is: Similar to previous dosing experience
Plan
- Plan
Initial / Loading Dose: vanc 2000mg administered in ED @ 1658
Maintenance Regimen: dosing by level for now
Monitoring: random level 09/04 0600
Pharmacokinetics Vancomycin I
- -
Patient Age: 83
Patient Sex: Female
Vancomycin Day #: 1
Indication: Skin And Soft Tissue
Requesting Provider: Dr. Lazo
Pertinent Antimicrobial Allergies:
aminoglycosides - unknown
azithromycin - unknown
doxycyline - unknown
erythromycin - chest pain
kanamycin - unknown
penicillin - unknown
Height / Weight:
Height 5 ft
Actual Weight 92.1 kg
Pertinent Past Medical History: L AKA 08/2018 d/t septic knee, BMI ~40
- Vital Signs / Lab Results
Temp Pulse Resp BP Pulse Ox
98.9 F 77 22 135/65 96
09/04/23 18:19 09/04/23 19:52 09/04/23 19:52 09/04/23 19:25 09/04/23 19:52
Lab Results - Hematology
09/04/23
16:13
WBC 7.0
Lab Results - Chemistry
09/04/23
16:13
BUN 12
Creatinine 0.7
Estimated Creat Clear 61
Albumin 3.1 L
09/04/23
16:13
Lactic Acid 1.1
Lab Results - Urine
09/04/23
16:13
Urine Nitrite (Reflex) Cancelled
Leukocyte Esterase Rfl Cancelled
Microbiology Results
09/04/23 18:22 Gram Stain - Preliminary
Leg - Right
[2023-09-04] MEDS: TYLENOL 650 MG PO (20:39)
[2023-09-04] MEDS: COLACE 100 MG PO (20:39)
[2023-09-04] MEDS: REQUIP 8 MG PO (20:40)
[2023-09-04] MEDS: ELIQUIS 5 MG PO (20:40)
[2023-09-04] MEDS: LIPITOR 40 MG PO (20:40)
[2023-09-04] MEDS: LYRICA 150 MG PO (20:40)
[2023-09-04] MEDS: MIRALAX 17 GRAMS PO (20:40)
[2023-09-04] MEDS: NSS IV (21:08)
--- NOTE | 2023-09-04 22:00 | PTCARENOTE ---
Received patient from the ER on 3L NC. sats in the mid 90's. pt desatting to the low 80's when asleep placed on the simple mask 6L. alert and orientated x3 but confused at times. c/o pain in the left leg Tylenol given. meds taken whole in apple
sauce.
--- NOTE | 2023-09-04 23:11 | W.PN.SEPSIS ---
Sepsis
Vital Signs
Temp Pulse Resp BP Pulse Ox
99.8 F 67 13 138/70 96
09/04/23 21:59 09/04/23 22:15 09/04/23 22:15 09/04/23 22:00 09/04/23 22:15
Physical Exam
Physical Exam:
A focused exam was performed after fluid resuscitation.
Capillary Refill
Lower Extremity:
[place] Time: Less than 3 sec
Pulse Evaluation
Posterior Tibial:
Pulse Evaluation: Present
[2023-09-05] VITALS (27 sets, daily range): BP systolic 91–135; BP diastolic 45–97
--- NOTE | 2023-09-05 02:35 | PTCARENOTE ---
levo off at 0230am.
[2023-09-05] MEDS: MAXIPIME 2000 MG IV (04:41)
[2023-09-05] MEDS: STERILE WATER FOR INJECTION 10 ML IV ×3 (04:42→18:05)
[2023-09-05 04:44] LABS: % Basophils 0.2 % (0-2); % Immature Granulocytes 0.4 % (0-0.5); % Lymphocytes 9.9 % (20.5-51.1); % Monocytes 0.9 % (1.7-9.3); % Neutrophils 88.6 % (42.2-75.2); Absolute Lymphocytes 0.6 10^3/uL (1.2-3.4); Absolute Monocytes 0.1 10^3/uL (0.1-0.6); Hematocrit 40.9 % (37.0-47.0); Hemoglobin 12.9 g/dL (12.0-16.0); Mean Corp Hgb Conc. 31.5 g/dL (33.0-37.0); Mean Corpuscular Hgb 28.9 pg (27.0-31.0); Mean Corpuscular Volume 91.7 fL (81.0-99.0); Mean Platelet Volume 9.2 fL (7.4-10.4); Nucleated Red Blood Cells % 0 %; Platelet Count 189 10^3/uL (130-400); Red Blood Cell Count 4.46 10^6/uL (4.20-5.40); Red Cell Dist. Width 15.9 % (11.5-14.5); White Blood Cell Count 5.7 10^3/uL (4.8-10.8)
[2023-09-05 04:53] LABS: INR 1.46; PT 17.8 Sec (11.4-14.6)
[2023-09-05 04:54] LABS: APTT 36.2 Sec (23.4-35.0)
[2023-09-05 05:13] LABS: ALT (SGPT) 19 U/L (0-35); AST (SGOT) 26 U/L (14-36); Alkaline Phosphatase 75 U/L (38-126); Blood Urea Nitrogen 9 mg/dl (7-17); Calcium 8.1 mg/dl (8.4-10.2); Carbon Dioxide 27 mmol/L (22-30); Chloride 106 mmol/L (98-107); Estimated Creatinine Clearance 71 ml/min; Glucose 170 mg/dl (70-99); Potassium 5.1 mmol/L (3.5-5.1); Sodium 137 mmol/L (135-145); Total Bilirubin 0.3 mg/dl (0.2-1.3); Total Protein 5.5 g/dl (6.3-8.2); eGFR > 60.00
[2023-09-05 05:36] LABS: Vancomycin Random 12.2 ug/ml
--- NOTE | 2023-09-05 06:25 | PTCARENOTE ---
wound care done on right lower leg. skin tear below the right knee. Vaseline gauze, abd, and sid wrapped. lower calf weeping redressed with Vaseline gauze, abd, and isd wraps.
--- NOTE | 2023-09-05 07:28 | CON.INTV ---
Consultation
Consultation Request
Date/Time Consultation Requested: 09/05/2023-8 AM
Date/Time Consultation Performed: 09/01/2023-8 AM
Requesting Provider: Hospitalist
Performing Provider: Dr. Merida
Reason for Consultation: Sepsis
Medical History
-
Chief Complaint: Sepsis
History of Present Illness:
83-year-old with a history of DVT/PE, CVA, atrial fibrillation on Eliquis, chronic heart failure preserved EF, hypertension, hyperlipidemia, restless legs, left AKA who presented with fevers and hypotension felt to be septic noted to be covid
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 Patient feels much improved this morning. She denies any shortness of breath at rest, chest pain, chest tightness, mucus, productive cough, pleurisy, hemoptysis,
abdominal pain, nausea, vomiting, weakness or lower extremity swelling.
Past Medical History
Past Medical History: None (Hypertension. Hyperlipidemia. DVT/PE. Atrial fibrillation/Eliquis. Chronic heart failure preserved EF. GERD. RLS. RG/CPAP intolerant. Asthma. Spinal stenosis. Neuropathy. 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 )
Past Surgical History: None (Partial thyroidectomy. Left knee replacement. Renal artery stenting. Hysterectomy. Right shoulder replacement. Laminectomy. Breast biopsy. Colon resection. BKA 2019. Spinal fusion.)
Social History
Tobacco: Non-smoker
Alcohol: None
Drug: None
Living: With Family
Occupational Exposures: No known asbestos exposure
Environmental Exposures: No known tuberculosis exposure
Family History
Family History: Reviewed & Not Pertinent
Allergies / Home Medications
Allergies
Allergy/AdvReac Type Severity Reaction Status Date / Time
adhesive [Adhesive] Allergy Itching/RED Verified 09/04/23 15:58
NESS
Aminoglycosides Allergy Pharmacy Verified 09/04/23 15:58
to Review
azithromycin [Azithromycin] Allergy Pharmacy Verified 09/04/23 15:58
to Review
celecoxib [From Celebrex] Allergy started to Verified 09/04/23 15:58
break out
with sores
doxycycline Allergy Pharmacy Verified 09/04/23 15:58
to Review
erythromycin base Allergy CHEST PAIN Verified 09/04/23 15:58
kanamycin Allergy Pharmacy Verified 09/04/23 15:58
to Review
Penicillins Allergy pt denies; Verified 09/04/23 15:58
says had
in 02/24
furosemide [From Lasix] AdvReac 'just Verified 09/04/23 19:11
doesn't
feel good'
- takes
bumetanide
at home
09/04/23
Home Medications
�Medication �Instructions �Recorded �Confirmed �Last Taken �Type
albuterol sulfate 90 mcg/actuation 2 puff inhalation R Q4HPRN PRN sob 06/22/20 09/04/23 09/03/23 History
aerosol inhaler (Ventolin HFA)
atorvastatin 40 mg tablet (Lipitor) 40 mg PO HS High cholesterol 06/22/20 09/04/23 09/03/23 History
carboxymethylcellulose 0.5 2 drp BOTH EYES BIDPRN PRN dry eyes 07/25/22 09/04/23 Unknown History
%-glycerin 0.9 % eye drops
(Refresh Optive)
ropinirole 2 mg tablet 8 mg PO TID Neurological Condition 07/25/22 09/04/23 09/04/23 History
apixaban 5 mg tablet (Eliquis) 5 mg PO BID 04/04/23 09/04/23 09/04/23 History
nadolol 40 mg tablet 40 mg PO DAILY 04/04/23 09/04/23 09/04/23 History
omeprazole 40 mg capsule,delayed 40 mg PO DAILY 04/04/23 09/04/23 09/04/23 History
release
pregabalin 150 mg capsule 150 mg PO BID 04/04/23 09/04/23 09/04/23 History
Unknown Antifungal 1 applic topical DAILY 09/03/23 09/04/23 09/03/23 History
acetaminophen 500 mg tablet 1,000 mg PO Q8HPRN PRN mild pain 09/03/23 09/04/23 3 Days Ago History
(Tylenol Extra Strength) ~08/31/23
ascorbic acid (vitamin C) 500 mg 500 mg PO DAILY 09/03/23 09/04/23 09/04/23 History
tablet (Vitamin C)
bumetanide 1 mg tablet 1 mg PO MOWEFR 09/03/23 09/04/23 09/03/23 History
cholecalciferol (vitamin D3) 25 25 mcg PO DAILY 09/03/23 09/04/23 09/04/23 History
mcg (1,000 unit) tablet (Vitamin
D3)
cyclobenzaprine 5 mg tablet 5 mg PO HSPRN PRN muscle spasms 09/03/23 09/04/23 08/31/23 History
ipratropium 0.5 mg-albuterol 3 mg 3 ml inhalation R Q6HPRN PRN sob 09/03/23 09/04/23 09/03/23 History
(2.5 mg base)/3 mL nebulization
soln
mineral oil-hydrophil petrolat 1 applic topical TIDPRN PRN dry 09/03/23 09/04/23 09/03/23 History
topical ointment skin
mupirocin 2 % topical ointment 1 applic topical DAILY right leg 09/03/23 09/04/23 09/04/23 History
sulfamethoxazole 800 1 tab PO BID 09/03/23 09/04/23 09/04/23 History
mg-trimethoprim 160 mg tablet
(Bactrim DS)
therapeutic multivitamin 1 tab PO DAILY 09/03/23 09/04/23 09/04/23 History
ondansetron 4 mg disintegrating 4 mg PO Q8HPRN PRN nausea and 09/04/23 09/04/23 Unknown History
tablet vomiting
Review of Systems
-
Unable to Obtain full review of systems at this time due to: Other (Per HPI)
Vitals / Labs / Diagnostic Testing
Vital Signs
Temp Pulse Resp BP Pulse Ox
99.1 F 51 15 110/56 98
09/05/23 05:18 09/05/23 06:15 09/05/23 06:15 09/05/23 05:30 09/05/23 05:00
Lab Data
09/05/23 04:31
09/05/23 04:31
Laboratory Results
09/05/23
04:31
PT 17.8 H
INR 1.46
APTT 36.2 H
Microbiology
09/04/23 18:22 Leg - Right Gram Stain - Preliminary
Diagnostic Testing:
Physical Exam
-
Exam:
Well-nourished and well-developed in no apparent distress
HEENT-atraumatic, normocephalic
Neck-supple, no JVD, no bruit
Heart-regular rate and rhythm-no murmurs, rubs or gallops
Chest-clear to auscultation, no wheezes, crackles
Back-no tenderness
Abdomen-soft, nontender, nondistended, no hepatosplenomegaly
Extremities-no cyanosis, clubbing, no edema, BKA
Integument-intact, no rashes, lesions or ecchymosis
Neurology-alert and oriented, nonfocal motor and sensory exam
Assessment
-
83-year-old with a history of DVT/PE, CVA, atrial fibrillation on Eliquis, chronic heart failure preserved EF, hypertension, hyperlipidemia, restless legs, left AKA who presented with fevers and hypotension felt to be septic noted to be covid
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
Sepsis with shock unresponsive to fluids requiring pressors
Covid positive-3 previous vaccinations-no recent booster
Left lower lobe atelectasis/small effusion/possible pneumonia
Hyperglycemia
Conditions present prior to admission:
Hypertension.
Hyperlipidemia.
DVT/PE.
Atrial fibrillation/Eliquis.
Chronic heart failure preserved EF.
GERD.
RLS.
RG/CPAP intolerant.
Asthma.
Spinal stenosis.
Neuropathy.
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
Partial thyroidectomy. Left knee replacement. Renal artery stenting. Hysterectomy. Right shoulder replacement. Laminectomy. Breast biopsy. Colon resection. BKA 2019. Spinal fusion.
Plan
Admit patient to medical intensive care unit for persistent hypotension despite fluid resuscitation requiring pressors
Supplement oxygen as needed
High flow oxygen if needed
BiPAP if necessary
Intubate and mechanically ventilate if necessary
Aspiration precautions
Nebulizers if needed
Obtain cultures
Empiric antibiotics
Consider Infectious disease consultation
Monitor leukocytosis
Fluid resuscitation with 30 mL/kg crystalloid-preferably lactated ringer-(less ALEJANDRA) with subsequent boluses as needed
Monitor lactate
Follow CVP if possible
Attempt noninvasive bedside tissue perfusion evaluation to see if fluid bolus responsive
Measure pulse pressure and stroke volume variation if patient on ventilator, passively breathing without arrhythmia and with temporary large tidal volume ventilation and if > 13% then likely fluid bolus responsive
If patient active then consider measuring bedside leg lift for 3 minutes and if cardiac output increases or if there is a rise of 2-4 on end-tidal CO2 then fluid bolus
If bedside ultrasound available then measure IVC diameter variation to evaluate for fluid bolus responsiveness
Begin pressors as needed for MAP goal of 65-Norepinephrine first, then Vasopressin and consider Angiotensin II if continues to be hypotensive
Consider methylene blue if available-specific inhibitor of induced nitric oxide synthase iNOS and its downstream enzyme soluble guanylate cyclase-noninferiority study shown to reduce time to vasopressor discontinuation, decreased ICU length of stay,
hospital stay but no change in mortality-published Critical Care 04/24/2022
If persistently hypotensive then consider checking random cortisol-hydrocortisone if random less than 3, if 3-15 then consider ACTH stimulation test
If persistently hyperthermic then correcting hyperthermia can decrease pressor requirements, increased chances of reversal of shock and decrease mortality
covid positive-3 previous vaccinations-no recent booster
Isolation per protocol
Negative pressure room
Decadron 6 mg
DVT prophylaxis-on Eliquis
Early nutrition if possible
Early mobilization/bedside range of motion
If able to be weaned off pressors then transfer out of ICU-pulmonary will follow briefly for hypoxemia/left base atelectasis, effusion
Last seen by Dr. Merida for RG/CPAP intolerance and asthma 01/02/[id number] recommended
Critical care statement: A total of 50 minutes of critical care time was provided for this patient today. This includes management of unstable vital signs, evaluation of the patient at bedside, reviewing the patient's pertinent medical records
including radiographs, pressor management, microbiology, laboratory evaluations, and discussion with primary team, consultants, pharmacy, nutrition, physical therapy, case management, charge nurse, critical care nursing, and respiratory therapy.
Diagnostic data:
Chest x-ray 07/25/22-mild subsegmental atelectasis versus interstitial pneumonia.
Chest x-ray 09/03/2023-low lung volumes, no acute process
Chest x-ray 09/04/2023-left lateral costophrenic angle opacification possibly small pleural effusion, patchy parenchymal opacification left lower lobe atelectasis versus pneumonia
Echocardiogram 07/26/22-year 65-70%, moderate mitral regurgitation, no change since 2020.
HST 03/13/20-ARAVIND-26.6, desaturation alexander 80%, 32.7% of time spent less than 90% saturation.
PFT 01/03/20-FEV1 1.06-64%, FVC 1.4-63%, TLC 107%, RV 161%, DLCO 40%, DLCO/VA 77%. Moderate restriction on spirometry, some hyperinflation on lung volumes, and moderate reduction in diffusing capacity.
Spirometry 10/30/22-FEV1 1.05-64%, FVC 1.47-66%, no significant BD response. Mild to moderate restriction.
Data Reviewed
-
PFT: Report reviewed by me
EKG: Report reviewed by me
Radiology: Image personally visualized and interpreted and Report reviewed by me
CT Scan: Report reviewed by me
Ultrasound: Report reviewed by me
Medical Tests (Nuc Med, Echo etc): Report reviewed by me
Labs: Labs reviewed by me
Old Records: Reviewed
Critical Care Time (in minutes): 50
--- NOTE | 2023-09-05 07:57 | PHA.VAN.FU ---
Vancomycin Assessment / Plan
- Assessment
Renal Function: Stable
WBC's are: WNL
Concomitant Antimicrobials: cefepime
- Assessment - Therapeutic Drug Monitoring
Random Level: 12.2 - drawn ~11.5H after 2g loading dose
- Dosing Plan
Adjust Regimen to: Vanc 750mg Q12H - first dose now then 1800
New Regimen Predicts: AUC (443), Peak (25.5), Trough (12.7)
Dosing Comments: used Vd 0.6 L/kg based on BMI
- Monitoring Plan
No level(s) ordered at this time: consider levels in next few days
- Follow Up
Pharmacy will continue to follow.
Vancomycin Follow UP
- -
Patient Age: 83
Patient Sex: Female
Vancomycin Day #: 2
Indication: Skin And Soft Tissue
Requesting Provider: Dr. Lazo
Pertinent Antimicrobial Allergies:
aminoglycosides - unknown
azithromycin - unknown
doxycyline - unknown
erythromycin - chest pain
kanamycin - unknown
penicillin - unknown
Height / Weight:
Height 5 ft
Actual Weight 92.1 kg
Pertinent Past Medical History: L AKA 08/2018 d/t septic knee, BMI ~40
- Vital Signs / Lab Results
Temp Pulse Resp BP Pulse Ox
99.1 F 51 15 110/56 98
09/05/23 05:18 09/05/23 06:15 09/05/23 06:15 09/05/23 05:30 09/05/23 05:00
Lab Results - Hematology
09/04/23 09/05/23
16:13 04:31
WBC 7.0 5.7
Lab Results - Chemistry
09/04/23 09/05/23
16:13 04:31
BUN 12 9
Creatinine 0.7 0.6
Estimated Creat Clear 61 71
Albumin 3.1 L 3.0 L
09/04/23 09/04/23
16:13 20:15
Lactic Acid 1.1 Cancelled
Lab Results - Urine
09/04/23
16:13
Urine Nitrite (Reflex) Cancelled
Leukocyte Esterase Rfl Cancelled
Microbiology Results
09/04/23 18:22 Gram Stain - Preliminary
Leg - Right
Therapeutic Drug Monitoring
Random Vancomycin 12.2 ug/ml 09/05/23 04:31
[2023-09-05] MEDS: REQUIP 8 MG PO ×3 (07:58→20:41)
[2023-09-05] MEDS: MIRALAX 17 GRAMS PO (07:58)
[2023-09-05] MEDS: COLACE 100 MG PO ×2 (07:59→20:41)
[2023-09-05] MEDS: PROTONIX 40 MG PO (08:02)
[2023-09-05] MEDS: ELIQUIS 5 MG PO ×2 (08:03→20:41)
[2023-09-05] MEDS: LYRICA 150 MG PO ×2 (08:03→20:41)
[2023-09-05] MEDS: VITAMIN C 500 MG PO (08:03)
[2023-09-05] MEDS: VITAMIN D3 (cholecalciferol) 25 MCG PO (08:04)
[2023-09-05] MEDS: THERAGRAN 1 TABLET PO (08:04)
[2023-09-05] MEDS: BACTROBAN 2% OINTMENT 1 APPLIC TOPICAL (08:05)
--- NOTE | 2023-09-05 08:30 | PTCARENOTE ---
Received pt in the bed,, 6L O2 via simple mask, POX 98%. Pt AAOx3, states she's been told she has sleep apnea but does not use a mask at home. Pt weaned to 3L O2 NC, POX 97%. NSS infusing @ 100mL/hr per order. Lungs diminished at the bases, pt
denies cough although moist nonproductive occasional cough noted. Pt states she has phlegm in the morning secondary to 'sinus issues'. Remainder of assessment as documented. Assisted pt to order breakfast. Repositioned; pt resting comfortably in
bed, call schmid on her bedside table.
[2023-09-05] MEDS: VANCOCIN 150 IV ×2 (09:17→18:09)
[2023-09-05] MEDS: NSS 1000 IV (09:25)
--- NOTE | 2023-09-05 10:54 | WOUNDNOTE ---
R KELLER BELOW KNEE
--- NOTE | 2023-09-05 10:54 | WOUNDNOTE ---
R LATERAL LOWER LEG
--- NOTE | 2023-09-05 10:54 | WOUNDNOTE ---
R POSTERIOR LOWER LEG
--- NOTE | 2023-09-05 10:57 | WOUNDNOTE ---
WON RN note: Patient admitted with Sepsis, cellulitis of R leg and COVID-19
See H&P for complete history. VN at home, nurse took patient to ER.
PMH: Left BKA s/t MRSA infection 2018, stroke, pneumonia, DT, HTN, A-fib on Eliquis, neuropathy, spinal stenosis, cervical laminectomy, multiple ortho surgeries, obesity, DVT, Pulmonary embolism, restless leg & venous ulcers.
Wound Location and type/assessment: Patient known to service, last seen 07/26/22 for RLE venous ulcers. Admitted with cellulitis of R leg and multiple weeping areas most of lower leg. Patient assessed along with GN RN Anna assisting. R lateral leg
with patch of venous ulcers, worse compared to when last seen. Patient reports she follows up with silo tender Dr. Castañeda for the wounds on R leg, currently using mupirocin and dry dressing. She has a palpable + pedal pulse and wears Tubigrip
size F at home or sid wrap. R dorsal foot with healing dermal skin rash, no drainage, patient states was a reaction to an unna boot. Using Aquaphor cream to patch of dry skin daily, states patient. R heel and sacrum are intact. L stump intact.
Patient confirmed that she spends much of her day in a wheelchair has offloading cushion. R leg wound culture pending.
Appetite: Good.
Pressure redistribution devices in place: Centrella Max Air, turns with assist. Pillow under R leg.
Plan: R leg applied Xeroform and dry dressing with Tubigrip F knee high. Recommend apply mupirocin when wounds more defined on R lateral leg upon discharge. Foam adhesive applied to R heel. Moisturized dorsal foot and above venous wounds with
Vaseline, will order mineral oil. Patient repositioned to L semi side lying. Will confirm orders with hospitalist. Updated nurse Ghazala. Care plan to be updated. Patient plans to continue to follow up with silo tender for wounds after discharge
and continue with VN.
--- NOTE | 2023-09-05 11:40 | CM ---
CM following re: discharge planning.
Discussed in Rounds, reviewed pt's chart, met with pt.
Pt is an 83 year old female, admitted with primary dx of Sepsis.
Pt reports she lives with spouse in 3 story home, resides on the ground floor, has a ramp to enter the home. Patient uses a motorized WC, has a walker, handicap accessible bathroom with grab bars, raised toilet seat. Patient reports she has left
AKA, able to transfer herself independently to and from motorized wheelchair, has had [facility] in the past
PCP: Stef Flores
Pharmacy: [facility]
D/C plan: pt expressed her desire to return back home with services.
CM will follow with discharge plan updates as hospitalization progresses
[2023-09-05] MEDS: MAXIPIME 1000 MG IV ×2 (12:08→18:05)
[2023-09-05 12:18] LABS: Glucose - Point of Care 167 mg/dl (70-99)
[2023-09-05] MEDS: NOVOLOG FLEXPEN-LOW RESISTANCE 1 UNITS SC (13:02)
--- NOTE | 2023-09-05 13:15 | PTCARENOTE ---
Pt reassessed; O2 weaned from 3L NC to 2L NC, pt tolerating with POX 93-97%, remainder of assessment unchanged. Pt seen by wound care, RLE dressings changed by wound care, wound care orders obtained. Lunch ordered, Novolog added, accuchek 167, 1
unit given, see APR.
[2023-09-05] MEDS: NSS IV (17:04)
--- NOTE | 2023-09-05 17:09 | PTCARENOTE ---
Assessment unchanged, pt assist x2 OOB to chair. Fluids d/c'd, downgrade to telemetry orders obtained, pt updated on POC.
[2023-09-05 17:11] LABS: Glucose - Point of Care 115 mg/dl (70-99)
--- NOTE | 2023-09-05 17:15 | W.PN.HOSP.TC ---
Today's Communication/Plan
-
transfer OOICU
ID consult
Assessment / Plan
Assessment / Plan
# Sepsis (fever, hypotension) likely source chronic right lower extremity cellulitis superimposed on underlying lymphedema
-Picture from visiting nurse show diffuse erythema and weeping of right lower extremity possibly secondary to underlying lymphedema
-Wound culture recently grew stenotrophomonas
-Check wound culture, blood cultures
-IV fluids will be stopped, but continue to hold Bumex
-Vancomycin/cefepime
-Wound care consulted
Will plan ID consult tomorrow
# Hypoxic respiratory insufficiency secondary to COVID infection
-On room air to 2 L oxygen
-Chest x-ray shows opacity involving the left lateral costophrenic angle, patchy parenchymal opacity within the left lower lung which could be atelectasis versus pneumonia
-Dexamethasone 6 mg daily
# Hyperkalemia secondary to Bactrim
-Hold Bactrim
Better 5.3-->5.1
# Abdominal pain secondary to constipation
-No bowel movement in 4 days
-Start MiraLAX, Colace
History of CVA
History of PE/DVT
Paroxysmal atrial fibrillation
-Continue Eliquis
Chronic HFpEF
-Hold Bumex
-Continue nadolol
Essential hypertension
Hyperlipidemia
-Continue statin
GERD
-Continue omeprazole
Restless leg syndrome
-Continue ropinirole
Spinal stenosis
-Continue cyclobenzaprine
Neuropathy
-Continue pregabalin
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
History of partial thyroidectomy
Morbid obesity
Full code
DVT prophylaxis�Eliquis
Regular diet
transfer OOICU
Anticipated Discharge: > 48 hours
Subjective/Interval History
-
Date of Service: September 05, 2023
Denies sob
Objective Data
-
Vital Signs:
Vital Signs
Temp Pulse Resp BP Pulse Ox
98.6 F 70 18 105/55 96
09/05/23 15:05 09/05/23 13:00 09/05/23 13:00 09/05/23 13:00 09/05/23 13:24
I&O
09/04/23 09/05/23 09/06/23
06:59 06:59 06:59
Intake Total 1142.5 / 1242.5 1919 / 192
Output Total 1200 / 1200 900 / 900
Balance -57.5 / 42.5 1020 / 1020
Review of Systems
-
History Source: Patient and Coordinated Provider
Constitutional: Reports Fever (Tmax 101.1)
Respiratory: Reports No Symptoms
Cardiac: Reports No Symptoms
Abdomen/GI: Reports No Symptoms
Genitourinary: Reports No Symptoms
Physical Exam
-
General: Well Developed, Well Nourished and No Apparent Distress
HEENT: Normocephalic, Atraumatic and Moist Mucous Membranes
Respiratory: Clear to Auscultation; Negative Wheezes, Rales or Rhonchi
Cardiac: Regular Rhythm and S1/S2
GI: Soft, Nontender and Nondistended
Musculoskeletal: No Clubbing, No Cyanosis and Other (left AKA)
Neuro: Awake, Alert and Oriented
[2023-09-05] MEDS: NOVOLOG FLEXPEN-LOW RESISTANCE SC (18:02)
[2023-09-05] MEDS: DECADRON 6 MG IV (18:07)
--- NOTE | 2023-09-05 20:00 | PTCARENOTE ---
Rec'd pt OOB in chair. To return to bed, ceiling lift utilized. Pt pleasant/cooperative/very chatty. Pt oriented but talk in circles at times and gets herself confused. Once she realizes, she reorients herself. No c/o pain at this time. Afebrile.
VSS. 2L nasal cannula, desat 88% with O2 off. Nonproductive cough noted, runny nose at times. Tolerating regular diet. Bowel regimen added to med list, due for BM. Positive flatus. Purewick in place and draining clear yellow urine. Will monitor.
[2023-09-05] MEDS: LIPITOR 40 MG PO (20:41)
[2023-09-05 22:27] LABS: Glucose - Point of Care 189 mg/dl (70-99)
[2023-09-05] MEDS: NOVOLOG FLEXPEN 1 UNITS SC (23:21)
[2023-09-06] VITALS (7 sets, daily range): BP systolic 112–165; BP diastolic 57–83; BMI 39.7
[2023-09-06] MEDS: MAXIPIME 1000 MG IV ×5 (00:21→23:49)
[2023-09-06] MEDS: STERILE WATER FOR INJECTION 10 ML IV ×5 (00:22→23:49)
--- NOTE | 2023-09-06 01:00 | PTCARENOTE ---
CHG provided, teeth brushed. No SOB with activity. Pt shifting weight in bed. Refuses to be propped with a pillow, insists on staying supine for majority of shift thus far. Pt assisted to offload weight every few hours. Skin on back CDI. Pt educated
on importance of turning. Pt adamant about taking stocking dressing off leg. Zhang dressing remains intact. Stockinette at bedside till morning. Will monitor.
[2023-09-06] MEDS: TYLENOL PO (02:53)
[2023-09-06] MEDS: FLEXERIL 5 MG PO ×2 (02:54→23:48)
[2023-09-06 03:19] LABS: % Immature Granulocytes 0.3 % (0-0.5); % Lymphocytes 16.7 % (20.5-51.1); % Monocytes 4.3 % (1.7-9.3); % Neutrophils 78.7 % (42.2-75.2); Absolute Monocytes 0.3 10^3/uL (0.1-0.6); Absolute Neutrophils 4.5 10^3/uL (1.4-6.5); Hematocrit 37.5 % (37.0-47.0); Hemoglobin 11.7 g/dL (12.0-16.0); Mean Corp Hgb Conc. 31.2 g/dL (33.0-37.0); Mean Corpuscular Hgb 28.1 pg (27.0-31.0); Mean Corpuscular Volume 90.1 fL (81.0-99.0); Mean Platelet Volume 9.5 fL (7.4-10.4); Nucleated Red Blood Cells % 0 %; Platelet Count 183 10^3/uL (130-400); Red Blood Cell Count 4.16 10^6/uL (4.20-5.40); Red Cell Dist. Width 15.7 % (11.5-14.5); White Blood Cell Count 5.8 10^3/uL (4.8-10.8)
[2023-09-06 04:00] LABS: Carbon Dioxide 29 mmol/L (22-30); Estimated Creatinine Clearance 71 ml/min; eGFR > 60.00
[2023-09-06 04:12] LABS: Blood Urea Nitrogen 17 mg/dl (7-17); Calcium 8.4 mg/dl (8.4-10.2); Chloride 102 mmol/L (98-107); Glucose 185 mg/dl (70-99); Potassium 4.7 mmol/L (3.5-5.1); Sodium 136 mmol/L (135-145)
[2023-09-06] MEDS: VANCOCIN 150 IV ×2 (06:05→18:01)
--- NOTE | 2023-09-06 07:41 | W.PN.INTV ---
Today's Communication / Plan
Recommendations
Wean FiO2
Increase activity
No change in Decadron
Infectious disease consultation
Follow-up chest x-ray in several days
Transfer out of ICU-pulmonary will follow briefly-also recommend outpatient pulmonary/sleep disorders follow-up
Assessment
-
83-year-old with a history of DVT/PE, CVA, atrial fibrillation on Eliquis, chronic heart failure preserved EF, hypertension, hyperlipidemia, restless legs, left AKA who presented with fevers and hypotension felt to be septic noted to be covid
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
Sepsis with shock unresponsive to fluids requiring pressors
Covid positive-3 previous vaccinations-no recent booster
Left lower lobe atelectasis/small effusion/possible pneumonia
Hyperglycemia
Conditions present prior to admission:
Hypertension.
Hyperlipidemia.
DVT/PE.
Atrial fibrillation/Eliquis.
Chronic heart failure preserved EF.
GERD.
RLS.
RG/CPAP intolerant.
Asthma.
Spinal stenosis.
Neuropathy.
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
Partial thyroidectomy. Left knee replacement. Renal artery stenting. Hysterectomy. Right shoulder replacement. Laminectomy. Breast biopsy. Colon resection. BKA 2019. Spinal fusion.
Plan
Hemodynamics have improved-weaned off pressors
Supplement oxygen as needed-still on 2 L - 93% saturation
High flow on BiPAP not needed
Aspiration precautions continue
Inhalers if needed-currently not bronchospastic
Obtain cultures
Wound cultures with Pseudomonas
Empiric antibiotics
Infectious disease consultation pending
Monitor leukocytosis
Decrease IV fluids
Lactate trended
Norepinephrine weaned
covid positive-3 previous vaccinations-no recent booster-not convinced patient has covid pneumonia
Isolation per protocol
Negative pressure room
Decadron 6 mg
Consider Plaxlovid-await infectious disease input-may be out of window
DVT prophylaxis-on Eliquis
Early nutrition if possible
Early mobilization/bedside range of motion
If able to be weaned off pressors then transfer out of ICU-pulmonary will follow briefly for hypoxemia/left base atelectasis, effusion
Last seen by Dr. Merida for RG/CPAP intolerance and asthma 01/02/[id number] recommended-she is willing
Reviewed the patient's pertinent medical records including radiographs, pressor management, microbiology, laboratory evaluations, and discussion with primary team, consultants, pharmacy, nutrition, physical therapy, case management, charge nurse,
critical care nursing, and respiratory therapy.
Diagnostic data:
Chest x-ray 07/25/22-mild subsegmental atelectasis versus interstitial pneumonia.
Chest x-ray 09/03/2023-low lung volumes, no acute process
Chest x-ray 09/04/2023-left lateral costophrenic angle opacification possibly small pleural effusion, patchy parenchymal opacification left lower lobe atelectasis versus pneumonia
Echocardiogram 07/26/22-year 65-70%, moderate mitral regurgitation, no change since 2020.
HST 03/13/20-ARAVIND-26.6, desaturation alexander 80%, 32.7% of time spent less than 90% saturation.
PFT 01/03/20-FEV1 1.06-64%, FVC 1.4-63%, TLC 107%, RV 161%, DLCO 40%, DLCO/VA 77%. Moderate restriction on spirometry, some hyperinflation on lung volumes, and moderate reduction in diffusing capacity.
Spirometry 10/30/22-FEV1 1.05-64%, FVC 1.47-66%, no significant BD response. Mild to moderate restriction.
Subjective Dataa
Subjective Data
Date of Service:
Date of Service: September 06, 2023
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
Subjective:
Feels better, still on 2 L, no chest pain, chest congestion, productive cough, abdominal pain
Review of Systems
General: Other (Per HPI)
Objective Data
Data Reviewed
Vital Signs / I&O / Oxygen:
Vital Signs
Temp Pulse Resp BP Pulse Ox
97.4 F 62 15 110/51 94
09/06/23 03:08 09/06/23 06:30 09/06/23 06:30 09/05/23 21:00 09/06/23 06:30
Intake and Output
09/05/23 09/06/23 09/07/23
06:59 06:59 06:59
Intake Total 1142.5 / 1242.5 2550 / 2550
Output Total 1200 / 1200 3150 / 3150
Balance -57.5 / 42.5 -600 / -600
SaO2 94
Nasal Cannula flow liters per 2
minute
Physical Exam
General: Respiratory Distress (n) and Comfortable
HEENT: Normocephalic and Anicteric
Cardiovascular: Regular Rhythm
Respiratory: Wheeze (n), Crackles, Rhonchi (n), Non-Labored Respirations, Accessory Resp Muscle Use (n) and Stridor
GI: Soft, Non Distended and Non Tender
Neurology: Awake, Alert and No Motor Deficits
Skin: Warm, Good Color, Cyanosis (n), Jaundice (n) and Rash (n)
Labs/Micro/Reports
Lab Data
09/06/23 03:03
09/06/23 03:03
Microbiology
09/04/23 16:20 Blood/Venous Blood Culture - Preliminary
No Growth in 24 hours- Final report to follow
09/04/23 18:22 Leg - Right Wound Culture - Preliminary
Pseudomonas species
09/04/23 18:22 Leg - Right Gram Stain - Preliminary
--- NOTE | 2023-09-06 07:49 | PHA.VAN.FU ---
Vancomycin Assessment / Plan
- Assessment
Renal Function: Stable
WBC's are: WNL
In the past 24 hrs, patient has been: Afebrile
Concomitant Antimicrobials: cefepime
- Dosing Plan
Continue: Vanc 750mg Q12H
- Monitoring Plan
No level(s) ordered at this time: consider levels in next few days
- Follow Up
Pharmacy will continue to follow.
Vancomycin Follow UP
- -
Patient Age: 83
Patient Sex: Female
Vancomycin Day #: 3
Indication: Skin And Soft Tissue
Requesting Provider: Dr. Lazo
Pertinent Antimicrobial Allergies:
aminoglycosides - unknown
azithromycin - unknown
doxycyline - unknown
erythromycin - chest pain
kanamycin - unknown
penicillin - unknown
Height / Weight:
Height 5 ft
Actual Weight 92.2 kg
Pertinent Past Medical History: L AKA 08/2018 d/t septic knee, BMI ~40
- Vital Signs / Lab Results
Temp Pulse Resp BP Pulse Ox
97.4 F 62 15 110/51 94
09/06/23 03:08 09/06/23 06:30 09/06/23 06:30 09/05/23 21:00 09/06/23 06:30
Lab Results - Hematology
09/04/23 09/05/23 09/06/23
16:13 04:31 03:03
WBC 7.0 5.7 5.8
Lab Results - Chemistry
09/04/23 09/05/23 09/06/23
16:13 04:31 03:03
BUN 12 9 17
Creatinine 0.7 0.6 0.6
Estimated Creat Clear 61 71 71
Albumin 3.1 L 3.0 L
09/04/23 09/04/23
16:13 20:15
Lactic Acid 1.1 Cancelled
Microbiology Results
09/04/23 16:20 Blood Culture - Preliminary
Blood/Venous No Growth in 24 hours- Final report to follow
09/04/23 18:22 Wound Culture - Preliminary
Leg - Right Pseudomonas species
Gram Stain - Preliminary
Therapeutic Drug Monitoring
Random Vancomycin 12.2 ug/ml 09/05/23 04:31
[2023-09-06] MEDS: NOVOLOG FLEXPEN-LOW RESISTANCE 1 UNITS SC (07:51)
[2023-09-06] MEDS: REQUIP 8 MG PO ×3 (07:52→21:22)
[2023-09-06] MEDS: COLACE 100 MG PO ×2 (07:52→21:22)
[2023-09-06] MEDS: VITAMIN C 500 MG PO (07:52)
[2023-09-06] MEDS: HYDROPHOR 1 APPLIC TOPICAL (07:53)
[2023-09-06] MEDS: ELIQUIS 5 MG PO ×2 (07:53→21:22)
[2023-09-06] MEDS: PROTONIX 40 MG PO (07:53)
[2023-09-06] MEDS: VITAMIN D3 (cholecalciferol) 25 MCG PO (07:53)
[2023-09-06] MEDS: MIRALAX 17 GRAMS PO (07:53)
[2023-09-06] MEDS: LYRICA 150 MG PO ×2 (07:53→21:22)
[2023-09-06] MEDS: THERAGRAN 1 TABLET PO (07:53)
[2023-09-06] MEDS: TYLENOL 650 MG PO ×2 (07:54→15:36)
--- NOTE | 2023-09-06 07:54 | PN.CDI ---
CDI
- -
CDI:
Physician Documentation Request
Admit Date: 09/04/23 18:25
Dear Doctor Tj,
Patient admitted with sepsis.
09/04 PN, 'Hypoxic respiratory insufficiency secondary to COVID infection -On room air to 2 L oxygen.
09/03 PCN, 'Received patient from the ER on 3L NC. sats in the mid 90's. pt desatting to the low 80's when asleep placed on the simple mask 6L.'
Selected Entries
09/04/23
21:14 09/04/23
21:57 09/05/23
08:05
Nasal Cannula flow liters per minute 2 6 3
Please clarify in your note the diagnosis associated with the patient's respiratory status:
Acute hypoxic respiratory failure, now resolved
Hypoxic only
Other
Use of terms such as suspected, likely, concern for, or probable (associated with a specific diagnosis that is being evaluated, monitored, or treated as if it exists) are acceptable and can be coded in the inpatient setting, when documented at the
time of discharge.
Thank you,
Scarlett FRIEDMAN,RN,CCDS
CDI Specialist
Available via tiger text
Please use your independent medical judgment in providing your response.
[2023-09-06 08:01] LABS: Glucose - Point of Care 157 mg/dl (70-99)
--- NOTE | 2023-09-06 08:05 | PN.CDI ---
CDI
- -
CDI:
Physician Documentation Request
Admit Date: 09/04/23 18:25
Dear Doctor Tj,
Patient admitted with sepsis.
09/04 PN, 'Sepsis (fever, hypotension)....'
09/04 Senior Data Integration Developer note, 'Sepsis with shock unresponsive to fluids requiring pressors.'
Patient received IV Levophed.
Please clarify which of the following is the most likely etiology of the above symptoms and treatment rendered:
Septic shock
Hypotension only
Other
Use of terms such as suspected, likely, concern for, or probable (associated with a specific diagnosis that is being evaluated, monitored, or treated as if it exists) are acceptable and can be coded in the inpatient setting, when documented at the
time of discharge.
Thank you,
Scarlett FRIEDMAN,RN,CCDS
CDI Specialist
Available via Ona text
Please use your independent medical judgment in providing your response.
--- NOTE | 2023-09-06 09:55 | CON.ID ---
Consultation
-
Date/Time Consultation Requested: September 05, 2023 1730
Date/Time Consultation Performed: September 06, 2023 1000
Requesting Provider: Dr. Korey Spencer
Performing Provider: Dr. Annalise Becker
Reason for Consultation: COVID
Chief Complaint / Past History
Chief Complaint
Weakness
History of Present Illness
83 year old female with history of Afib, CVA, L AKA who started feeling unwell on 08/29 with nausea and dry heaves. She felt weak and stayed in bed Sun to Sunday. Visiting nurse sent her to ED 09/02. Afebrile, CXR no acut4e process, UA negative. She
was discharged to home. However, pt continued to feel unwell with SOB, cough, weakness. She fell. Home nurse took fernando OX which was in the 80's. She came back to ED 09/03. Fever T>101. COVID +. Hypotensive, requiring short course of Levophed.
Currently on dexamethasone with decreased in oxygen requirement. She reports she never received COVID booster. SOB better. Pt also with RLE lymphedema, chronic wound. She was placed on Bactrim for wound cellulitis. Pt continues to have weepage from
the wound. She is currently on Vanco and cefepime. LE edema improved. Decreased drainage.
Past History
Additional Past Medical History:
CVA/TIA
HTN
DVT/PE
Afib
HFpEF
hypothyroidism
partial thyroidectomy
Right LE chronic venous stasis wounds
L TKR
R shoulder replacement
endometriosis s/p hysterectomy, colon resection
L AKA
cervical and lumbar fusion
Restless leg syndrome
Allergy History:
adhesive [Adhesive] Allergy (Verified 09/04/23 15:58)
Itching/REDNESS
Aminoglycosides Allergy (Verified 09/04/23 15:58)
Pharmacy to Review
azithromycin [Azithromycin] Allergy (Verified 09/04/23 15:58)
Pharmacy to Review
celecoxib [From Celebrex] Allergy (Verified 09/04/23 15:58)
started to break out with sores
doxycycline Allergy (Verified 09/04/23 15:58)
Pharmacy to Review
erythromycin base Allergy (Verified 09/04/23 15:58)
CHEST PAIN
kanamycin Allergy (Verified 09/04/23 15:58)
Pharmacy to Review
Penicillins Allergy (Verified 09/04/23 15:58)
pt denies; says had in 02/24
furosemide [From Lasix] Adverse Reaction (Verified 09/04/23 19:11)
'just doesn't feel good' - takes bumetanide at home 09/04/23
Medications Reviewed: Yes
Current Antibiotics:
cefepime
Vancomycin
Social History
Tobacco: Non-Smoker
Alcohol: None
Drug: None
Personal:
Family History
Family History: Not Pertinent
Review of Systems
Review of Systems
General: Fever, Chills and Change in Appetite
HEENT: Negative Sinus Problems, Headache or Pharyngitis
Cardiovascular: Dyspnea and Edema
Respiratory: Dyspnea and Cough; Negative Sputum Production
Genital / Urological: Negative Dysuria or Flank Pain
Endocrine: Weakness
Neurological: Negative Headache or Dizziness
All systems: All other systems were reviewed and were negative
Vital Signs
Temp Pulse Resp BP Pulse Ox
96.4 F L 66 15 121/57 92
09/06/23 08:00 09/06/23 09:30 09/06/23 09:30 09/06/23 08:00 09/06/23 09:48
Physical Exam
Physical Exam
Constitutional: No Acute Distress, Comfortable and Obese
Eyes: No Conjunctival Hemorrhage and Sclera Anicteric
Cardiovascular: Regular Rate and S1/S2
Pulmonary: Clear
Gastrointestinal: Soft, Non Tender, Non Distended and Normal Bowel Sounds
Genito-Urinary: Negative CVA Tenderness
Wound: Other (Reviewed wound photos of RLE; + skin tear below anterior knee. lateral-posterior leg with large venous stasis wounds, distally with soto weeping exudate; + surrounding erythema)
Neurological: AO x 3
Lab / Diagnostic Study Results
09/06/23 03:03
09/06/23 03:03
Abs Immat Gran (auto) 0.0 10^3/uL (0-0.05) 09/06/23 03:03
Absolute Neuts (auto) 4.5 10^3/uL (1.4-6.5) 09/06/23 03:03
Absolute Lymphs (auto) 1.0 10^3/uL (1.2-3.4) L 09/06/23 03:03
Absolute Monos (auto) 0.3 10^3/uL (0.1-0.6) 09/06/23 03:03
Absolute Basos (auto) 0.0 10^3/uL (0-0.2) 09/06/23 03:03
Immature Gran % 0.3 % (0-0.5) 09/06/23 03:03
Neutrophils % 78.7 % (42.2-75.2) H 09/06/23 03:03
Lymphocytes % 16.7 % (20.5-51.1) L 09/06/23 03:03
Monocytes % 4.3 % (1.7-9.3) 09/06/23 03:03
Eosinophils % 0.0 % (0-6) 09/06/23 03:03
Basophils % 0.0 % (0-2) 09/06/23 03:03
PT 17.8 Sec (11.4-14.6) H 09/05/23 04:31
INR 1.46 09/05/23 04:31
Lactic Acid Cancelled 09/04/23 20:15
Microbiology Results
Micro:
09/04/23 18:22 Wound Culture - Preliminary
Leg - Right Pseudomonas species
Gram Stain - Preliminary
09/05/23 04:31 MRSA Screen - Final
Nose No Methicillin Resistant Staphylococcus aureus isolated.
09/04/23 16:20 Blood Culture - Preliminary
Blood/Venous No Growth in 24 hours- Final report to follow
09/04/23 CXR: Opacity involving the left lateral costophrenic angle, at least partially accounted for by prominent pericardial fat pad. On a portable AP examination, a small left pleural effusion is difficult to exclude. Patchy parenchymal opacity
within the left lower lung with some loss of definition of the left hemidiaphragm, with main differential considerations of atelectasis and/or pneumonia.
09/03/23 2V CXR: Low lung volumes. No active pulmonary process.
Assessment / Plan
# RLE wound cellulitis
- Wound cx: Pseudomonas
-MRSA screen negative.
-DC Vancomycin.
-Continue cefepime (d3)
- Appreciate Wound CARE SERVICE.
- Continue with compression.
# Mild-moderate COVID19 infection
- Not uptodate with with booster.
-Symptom onset 08/30/23.
- Hypoxia improving.
- Out of window for tx benefit.
-Continue supportive care.
-Can dc isolation on 09/10/23 (10 days from sx onset).
# Fever resolved.
--- NOTE | 2023-09-06 10:52 | W.PN.HOSP.TC ---
Addendum entered and electronically signed by Korey Spencre MD 09/06/23 15:47:
nurse called, pt has issues with steroids. She is not significantly hypoxic and as such, Dr. Becker is in agreement that steroids can be stopped
Original Note:
Today's Communication/Plan
-
continue Cefepime
ID consult
?Paxlovid as per ID
Assessment / Plan
Assessment / Plan
# Sepsis (fever, hypotension) likely source chronic right lower extremity cellulitis superimposed on underlying lymphedema
-Picture from visiting nurse show diffuse erythema and weeping of right lower extremity possibly secondary to underlying lymphedema
-Wound culture recently grew stenotrophomonas
- wound culture - Pseudomonas, Enterococcus, (both sens to Cefepime) blood cultures - NGTD
-IV fluids stopped, but continue to hold Bumex
-Vancomycin stopped/cefepime continued
-Wound care consulted
ID consult
# Hypoxic respiratory insufficiency secondary to COVID infection
-On room air to 1 L oxygen
-Chest x-ray shows opacity involving the left lateral costophrenic angle, patchy parenchymal opacity within the left lower lung which could be atelectasis versus pneumonia
-Dexamethasone 6 mg daily
-Await input from ID as to whether Paxlovid should be considered
# Hyperkalemia secondary to Bactrim
-Hold Bactrim
Better 5.3-->5.1-->4.7
# Abdominal pain secondary to constipation
-No bowel movement in 4 days, had BM today as per nursing
-Start MiraLAX, Colace
History of CVA
History of PE/DVT
Paroxysmal atrial fibrillation
-Continue Eliquis
Chronic HFpEF
-Hold Bumex
-Continue nadolol
Essential hypertension
Hyperlipidemia
-Continue statin
GERD
-Continue omeprazole
Restless leg syndrome
-Continue ropinirole
Spinal stenosis
-Continue cyclobenzaprine
Neuropathy
-Continue pregabalin
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
History of partial thyroidectomy
Morbid obesity
Full code
DVT prophylaxis�Eliquis
Regular diet
transfer OOICU
Anticipated Discharge: > 48 hours
Subjective/Interval History
-
Date of Service: September 06, 2023
Has noted increased coughing, denies sob
Objective Data
-
Labs:
Laboratory Results
09/06/23
03:03
WBC 5.8
Hgb 11.7 L
Hct 37.5
Plt Count 183
Sodium 136
Potassium 4.7
Chloride 102
Carbon Dioxide 29
BUN 17
Creatinine 0.6
Glucose 185 H
Calcium 8.4
Vital Signs:
Vital Signs
Temp Pulse Resp BP Pulse Ox
96.4 F L 83 18 121/57 92
09/06/23 08:00 09/06/23 10:01 09/06/23 10:01 09/06/23 08:00 09/06/23 09:48
I&O
09/05/23 09/06/23 09/07/23
06:59 06:59 06:59
Intake Total 1142.5 / 1242.5 2550 / 2550 680 / 680
Output Total 1200 / 1200 3150 / 3150
Balance -57.5 / 42.5 -600 / -600 680 / 680
Review of Systems
-
History Source: Patient and Coordinated Provider
Constitutional: Reports Fever (Tmax 101.1 noted last on 09/03 at 16:30)
Respiratory: Reports No Symptoms
Cardiac: Reports No Symptoms
Abdomen/GI: Reports No Symptoms
Genitourinary: Reports No Symptoms
Physical Exam
-
General: Well Developed, Well Nourished and No Apparent Distress
HEENT: Normocephalic, Atraumatic and Moist Mucous Membranes
Respiratory: Clear to Auscultation; Negative Wheezes, Rales or Rhonchi
Cardiac: Regular Rhythm and S1/S2
GI: Soft, Nontender and Nondistended
Musculoskeletal: No Clubbing, No Cyanosis and Other (left AKA, rt leg fully wrapped, but nursing notes that cellulitic changes have lessened)
Neuro: Awake, Alert and Oriented
--- NOTE | 2023-09-06 11:15 | PTCARENOTE ---
patient received@0700. patient with excellent appetite, monitor nsr, sinus izzy with sleep. lungs with basilar crackles. oxygen per work list. patient forgetful, oob to commode. had very large formed brown stool. picot to chair. alarm placed on
chair. call schmid in reach
[2023-09-06] MEDS: NOVOLOG FLEXPEN-LOW RESISTANCE SC ×2 (11:39→18:07)
[2023-09-06 11:47] LABS: Glucose - Point of Care 110 mg/dl (70-99)
--- NOTE | 2023-09-06 13:49 | PTCARENOTE ---
tolerated oob to chair. exertional wheezing during exertion. pulse oximeter 88 when sleeping. oxygen titration per work list. back to bed, alarm on, call schmid in reach. text to RT to administer inhaler
[2023-09-06] MEDS: ProAIR HFA INHALER 2 PUFF INH ×2 (13:53→20:30)
--- NOTE | 2023-09-06 14:55 | VNURNOTE ---
Chart reviewed, CM aware pt current with [facility]. Noted patient's wishes to resume services. Will follow hospital course. Resumption referral placed in [facility].
--- NOTE | 2023-09-06 15:57 | PTCARENOTE ---
patient states that 'steroids make me crazy'. Dr Spencer updated by tiger text then by telephone. requested that inhalers be scheduled per patient preference. orders received
--- NOTE | 2023-09-06 16:19 | PTCARENOTE ---
Addendum entered by Lovely Hunter RN 09/06/23 16:51:
transfer to [address] [place] [address] with all belongings
Original Note:
report to [address] [place] [address] RN
[2023-09-06 18:08] LABS: Glucose - Point of Care 136 mg/dl (70-99)
[2023-09-06] MEDS: LIPITOR 40 MG PO (21:22)
[2023-09-06 21:43] LABS: Glucose - Point of Care 136 mg/dl (70-99)
[2023-09-07] VITALS (7 sets, daily range): BP systolic 128–165; BP diastolic 54–99; BMI 39.5
[2023-09-07] MEDS: MAXIPIME 1000 MG IV ×4 (05:16→23:23)
[2023-09-07] MEDS: VANCOCIN 150 IV (05:16)
[2023-09-07] MEDS: STERILE WATER FOR INJECTION 10 ML IV ×4 (05:16→23:23)
[2023-09-07 07:41] LABS: Glucose - Point of Care 87 mg/dl (70-99)
[2023-09-07] MEDS: ProAIR HFA INHALER 2 PUFF INH ×2 (07:45→20:23)
[2023-09-07] MEDS: NOVOLOG FLEXPEN-LOW RESISTANCE SC ×3 (07:55→17:04)
[2023-09-07] MEDS: REQUIP 8 MG PO ×3 (08:28→19:52)
[2023-09-07] MEDS: LYRICA 150 MG PO ×2 (08:29→19:52)
[2023-09-07] MEDS: VITAMIN C 500 MG PO (08:29)
[2023-09-07] MEDS: VITAMIN D3 (cholecalciferol) 25 MCG PO (08:29)
[2023-09-07] MEDS: PROTONIX 40 MG PO (08:29)
[2023-09-07] MEDS: COLACE 100 MG PO ×2 (08:29→19:52)
[2023-09-07] MEDS: ELIQUIS 5 MG PO ×2 (08:29→19:52)
[2023-09-07] MEDS: THERAGRAN 1 TABLET PO (08:30)
[2023-09-07] MEDS: MIRALAX 17 GRAMS PO (08:30)
[2023-09-07] MEDS: HYDROPHOR 1 APPLIC TOPICAL (08:43)
--- NOTE | 2023-09-07 09:02 | W.PN.HOSP.TC ---
Today's Communication/Plan
-
continue Cefepime
recheck labs
Assessment / Plan
Assessment / Plan
# Sepsis (fever, hypotension) likely source chronic right lower extremity cellulitis superimposed on underlying lymphedema
-Picture from visiting nurse show diffuse erythema and weeping of right lower extremity possibly secondary to underlying lymphedema
-Wound culture recently grew stenotrophomonas
- wound culture - Pseudomonas, Enterococcus, (both sens to Cefepime) blood cultures - NGTD
-IV fluids stopped, but continue to hold Bumex
-Vancomycin stopped/cefepime continued
-Wound care consulted
ID consult, input appreciated
# Hypoxic respiratory failure secondary to COVID infection, was at one time requiring 6 L/M NC, significantly improved
-On room air to 1-2 L oxygen currently
-Chest x-ray shows opacity involving the left lateral costophrenic angle, patchy parenchymal opacity within the left lower lung which could be atelectasis versus pneumonia
-Dexamethasone 6 mg daily, nursing reports that pt concerned steroids can affect her mentally and was stopped
input from ID as to whether Paxlovid should be considered, appreciated, they did not believe was needed
# Hyperkalemia secondary to Bactrim
-Hold Bactrim
Better 5.3-->5.1-->4.7
# Abdominal pain secondary to constipation
doing better
-No bowel movement in 4 days, had BM yesterday as per nursing
-continue MiraLAX, Colace
History of CVA
History of PE/DVT
Paroxysmal atrial fibrillation
-Continue Eliquis
Chronic HFpEF
-Hold Bumex
-Continue nadolol
Essential hypertension
Hyperlipidemia
-Continue statin
GERD
-Continue omeprazole
Restless leg syndrome
-Continue ropinirole
Spinal stenosis
-Continue cyclobenzaprine
Neuropathy
-Continue pregabalin
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
History of partial thyroidectomy
Morbid obesity
Full code
DVT prophylaxis�Eliquis
Regular diet
continue supplemental oxygen
Anticipated Discharge: > 48 hours
Subjective/Interval History
-
Date of Service: September 07, 2023
Generally feels better today, less coughing
Objective Data
-
Vital Signs:
Vital Signs
Temp Pulse Resp BP Pulse Ox
97.8 F 74 18 151/70 93
09/07/23 07:25 09/07/23 07:59 09/07/23 07:59 09/07/23 07:25 09/07/23 07:59
I&O
09/06/23 09/07/23 09/08/23
06:59 06:59 06:59
Intake Total 2550 / 2550 1040 / 1040
Output Total 3150 / 3150 1300 / 1300
Balance -600 / -600 -260 / -260
Review of Systems
-
History Source: Patient and Coordinated Provider
Constitutional: Denies Fever (Tmax 101.1 noted last on 09/03 at 16:30, now resolved)
Respiratory: Reports No Symptoms and Cough (better, almost fully resolved)
Cardiac: Reports No Symptoms
Abdomen/GI: Reports No Symptoms
Genitourinary: Reports No Symptoms
Physical Exam
-
General: Well Developed, Well Nourished and No Apparent Distress
HEENT: Normocephalic, Atraumatic and Moist Mucous Membranes
Respiratory: Clear to Auscultation; Negative Wheezes, Rales or Rhonchi
Cardiac: Regular Rhythm and S1/S2
GI: Soft, Nontender and Nondistended
Musculoskeletal: No Clubbing, No Cyanosis and Other (left AKA, rt leg fully wrapped, but nursing notes that cellulitic changes have lessened, had requested to hold off wrapping to allow me to see leg, again reminded for tomorrow)
Neuro: Awake, Alert and Oriented
--- NOTE | 2023-09-07 09:16 | W.PN.PUL3 ---
Today's Communication / Plan
-
Doing well, weaned to 1.5L NC, wean to RA as tolerated
Encouraged OOB/PT, IS teaching
Continue albuterol PRN
Home O2 eval eventually
IV Abx per ID
Assessment
-
83-year-old with a history of DVT/PE, CVA, atrial fibrillation on Eliquis, chronic heart failure preserved EF, hypertension, hyperlipidemia, restless legs, left AKA who presented with fevers and hypotension felt to be septic noted to be covid
positive as well-sil[facility] consulted for sepsis/covid management 09/01/2023.
Sepsis with shock unresponsive to fluids requiring pressors
Covid positive-3 previous vaccinations-no recent booster
Left lower lobe atelectasis/small effusion/possible pneumonia
Hyperglycemia
Conditions present prior to admission:
Hypertension.
Hyperlipidemia.
DVT/PE.
Atrial fibrillation/Eliquis.
Chronic heart failure preserved EF.
GERD.
RLS.
RG/CPAP intolerant.
Asthma.
Spinal stenosis.
Neuropathy.
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
Partial thyroidectomy. Left knee replacement. Renal artery stenting. Hysterectomy. Right shoulder replacement. Laminectomy. Breast biopsy. Colon resection. BKA 2019. Spinal fusion.
Plan
Hemodynamics have improved-weaned off pressors
Supplement oxygen as needed-still on 1.5 L - 93% saturation
High flow or BiPAP not needed
Aspiration precautions continue
Inhalers if needed-currently not bronchospastic
IS teaching
Cultures reviewed--
Wound cultures with Pseudomonas
Empiric antibiotics--stop vanc
Infectious disease consultation reviewed, abx adjusted
Monitor leukocytosis
Decrease IV fluids
Lactate trended
Norepinephrine weaned
Covid positive-3 previous vaccinations-no recent booster-not convinced patient has covid pneumonia
Isolation per protocol
Negative pressure room
Decadron 6 mg
Consider Plaxlovid-await infectious disease input-may be out of window
DVT prophylaxis-on Eliquis
Early nutrition if possible
Early mobilization/bedside range of motion
If able to be weaned off pressors then transfer out of ICU-pulmonary will follow briefly for hypoxemia/left base atelectasis, effusion
Last seen by Dr. Merida for RG/CPAP intolerance and asthma 01/02/[id number] recommended-she is willing
Diagnostic Data:
Chest x-ray 07/25/22-mild subsegmental atelectasis versus interstitial pneumonia.
Chest x-ray 09/03/2023-low lung volumes, no acute process
Chest x-ray 09/04/2023-left lateral costophrenic angle opacification possibly small pleural effusion, patchy parenchymal opacification left lower lobe atelectasis versus pneumonia
Echocardiogram 07/26/22-year 65-70%, moderate mitral regurgitation, no change since 2020.
HST 03/13/20-ARAVIND-26.6, desaturation alexander 80%, 32.7% of time spent less than 90% saturation.
PFT 01/03/20-FEV1 1.06-64%, FVC 1.4-63%, TLC 107%, RV 161%, DLCO 40%, DLCO/VA 77%. Moderate restriction on spirometry, some hyperinflation on lung volumes, and moderate reduction in diffusing capacity.
Spirometry 10/30/22-FEV1 1.05-64%, FVC 1.47-66%, no significant BD response. Mild to moderate restriction.
-----
Reviewed the patient's pertinent medical records including radiographs, pressor management, microbiology, laboratory evaluations, and discussion with primary team, consultants, pharmacy, nutrition, physical therapy, case management, charge nurse,
critical care nursing, and respiratory therapy. Time spent 51 mins.
Subjective Data
-
Date of Service:
Date of Service: September 07, 2023
Chief Complaint: Pulmonary Follow Up
Subjective:
no new complaints
remains on minimal O2
Objective Data
Data Reviewed
Vital Signs / I&O / Oxygen:
Vital Signs
Temp Pulse Resp BP Pulse Ox
97.8 F 74 18 151/70 93
09/07/23 07:25 09/07/23 07:59 09/07/23 07:59 09/07/23 07:25 09/07/23 08:45
Intake and Output
09/06/23 09/07/23 09/08/23
06:59 06:59 06:59
Intake Total 2550 / 2550 1040 / 1040
Output Total 3150 / 3150 1300 / 1300
Balance -600 / -600 -260 / -260
SaO2 93
Nasal Cannula flow liters per 1.5
minute
Physical Exam
General: Comfortable and Other (NAD)
HEENT: Normocephalic, Anicteric and Moist Mucous Membranes
Cardiovascular: S1-S2 and Regular Rhythm
Respiratory: Crackles (overall decreased, minimal rales) and Non-Labored Respirations
GI: Soft, Non Distended and Non Tender
Neurology: Awake, Alert, Oriented, AO x 3 and No Motor Deficits
Skin: Warm, Dry and Good Color
Labs/Micro/Reports
Lab Data
09/06/23 03:03
09/06/23 03:03
Microbiology
09/04/23 16:20 Blood/Venous Blood Culture - Preliminary
No Growth in 48 hours- Final report to follow
09/04/23 18:22 Leg - Right Wound Culture - Preliminary
Pseudomonas aeruginosa
Enterococcus species
09/04/23 18:22 Leg - Right Gram Stain - Preliminary
09/05/23 04:31 Nose MRSA Screen - Final
No Methicillin Resistant Staphylococcus aureus isolated.
[2023-09-07 11:39] LABS: Glucose - Point of Care 98 mg/dl (70-99)
[2023-09-07] MEDS: FLUSH (NSS) 1 FLUSH IV ×2 (12:04→17:05)
--- NOTE | 2023-09-07 12:58 | PN.CDI ---
CDI
- -
CDI:
Physician Documentation Request
Admit Date: 09/04/23 18:25
Dear Doctor Tj,
Patient admitted with sepsis.
09/06 PN, 'Hypoxic respiratory failure secondary to COVID infection was at one time requiring 6 L/M NC, significantly improved.'
Please clarify which of the following accurately represents the acuity of the hypoxic respiratory failure:
Acute hypoxic respiratory failure
Chronic hypoxic respiratory failure
Other
Use of terms such as suspected, likely, concern for, or probable (associated with a specific diagnosis that is being evaluated, monitored, or treated as if it exists) are acceptable and can be coded in the inpatient setting, when documented at the
time of discharge.
Thank you,
Scarlett FRIEDMAN,RN,CCDS
CDI Specialist
Available via [employer] text
Please use your independent medical judgment in providing your response.
--- NOTE | 2023-09-07 13:12 | PN.CDI ---
CDI
- -
CDI:
Physician Documentation Request
Admit Date: 09/04/23 18:25
Dear Doctor Tj,
Patient admitted with sepsis.
H&P, '....presents to the emergency room for lethargy, confusion....'
Based on the above, please clarify in your note the diagnosis is the most likely etiology of the confusion:
Metabolic encephalopathy
Toxic metabolic encephalopathy
Other
Use of terms such as suspected, likely, concern for, or probable (associated with a specific diagnosis that is being evaluated, monitored, or treated as if it exists) are acceptable and can be coded in the inpatient setting, when documented at the
time of discharge.
Thank you,
Scarlett FRIEDMAN,RN,CCDS
CDI Specialist
Available via [place] text
Please use your independent medical judgment in providing your response.
--- NOTE | 2023-09-07 13:43 | PN.CDI ---
CDI
- -
CDI:
Physician Documentation Request
Admit Date: 09/04/23 18:25
Dear Doctor Tj,
Patient admitted with sepsis.
H&P, '...presents to the emergency room for lethargy, confusion....'
09/04 PN, 'COVID infection.'
09/04 PCN,' Pt AAOx3
Based on the above, please clarify in your note the diagnosis is the most likely etiology of the confusion:
Metabolic encephalopathy
Toxic metabolic encephalopathy
Other
Use of terms such as suspected, likely, concern for, or probable (associated with a specific diagnosis that is being evaluated, monitored, or treated as if it exists) are acceptable and can be coded in the inpatient setting, when documented at the
time of discharge.
Thank you,
Scarlett FRIEDMAN,RN,CCDS
CDI Specialist
Available via [place] text
Please use your independent medical judgment in providing your response.
--- NOTE | 2023-09-07 13:53 | PHA.VAN.FU ---
Vancomycin Assessment / Plan
- Assessment
Renal Function: Stable (0.6>0.6)
WBC's are: Stable (5.7>5.8)
In the past 24 hrs, patient has been: Hypothermic (96.7 on 09/06/23 at 16:30. Currently afebrile)
Concomitant Antimicrobials: Cefepime
- Dosing Plan
Continue: Vancomycin 750mg IV Q12hrs
- Monitoring Plan
Peak Level: Ordered for 09/07/23 at 20:30
Trough Level: Ordered for 09/08/23 at 05:30
- Follow Up
Pharmacy will continue to follow.
Vancomycin Follow UP
- -
Patient Age: 83
Patient Sex: Female
Vancomycin Day #: 4
Indication: Skin And Soft Tissue
Requesting Provider: Dr. Lazo
Pertinent Antimicrobial Allergies:
aminoglycosides - unknown
azithromycin - unknown
doxycyline - unknown
erythromycin - chest pain
kanamycin - unknown
penicillin - unknown
Height / Weight:
Height 5 ft
Actual Weight 91.716 kg
IBW in k.5
Adjusted BW in k
Pertinent Past Medical History: [facility] RINCON 08/2018 d/t septic knee, BMI ~40
- Vital Signs / Lab Results
Temp Pulse Resp BP Pulse Ox
97.5 F 69 18 137/75 93
09/07/23 11:30 09/07/23 11:30 09/07/23 11:30 09/07/23 11:30 09/07/23 11:30
Lab Results - Hematology
09/04/23 09/05/23 09/06/23
16:13 04:31 03:03
WBC 7.0 5.7 5.8
Lab Results - Chemistry
09/04/23 09/05/23 09/06/23
16:13 04:31 03:03
BUN 12 9 17
Creatinine 0.7 0.6 0.6
Estimated Creat Clear 61 71 71
Albumin 3.1 L 3.0 L
09/04/23 09/04/23
16:13 20:15
Lactic Acid 1.1 Cancelled
Microbiology Results
09/04/23 18:22 Wound Culture - Final
Leg - Right Pseudomonas aeruginosa
Enterococcus faecalis
Enterococcus species
Gram Stain - Final
09/04/23 16:20 Blood Culture - Preliminary
Blood/Venous No Growth in 48 hours- Final report to follow
09/05/23 04:31 MRSA Screen - Final
Nose No Methicillin Resistant Staphylococcus aureus isolated.
Therapeutic Drug Monitoring
Random Vancomycin 12.2 ug/ml 09/05/23 04:31
--- NOTE | 2023-09-07 14:05 | PN.CDI ---
CDI
- -
CDI:
Physician Documentation Request
Admit Date: 09/04/23 18:25
Dear Doctor Tj,
Patient admitted with sepsis.
09/06 PN, 'COVID infection....Chest x-ray shows opacity involving the left lateral costophrenic angle, patchy parenchymal opacity within the left lower lung which could be atelectasis versus pneumonia.'
After careful study, please clarify in your note the likely diagnosis associated with the above chest x-ray findings:
COVID pneumonia
Pneumonia
Atelectasis
Other
Use of terms such as suspected, likely, concern for, or probable (associated with a specific diagnosis that is being evaluated, monitored, or treated as if it exists) are acceptable and can be coded in the inpatient setting, when documented at the
time of discharge.
Thank you,
Scarlett PEDROZAN,RN,CCDS
CDI Specialist
Available via [place] text
Please use your independent medical judgment in providing your response.
--- NOTE | 2023-09-07 14:27 | CM ---
CM following re: discharge planning.
Discussed in Rounds, reviewed pt's chart, met with pt.
PT and OT to evaluate the pt to determine a level of care at discharge. Pt continue to express her desire to return back home with [facility].
Pt lives with spouse in 3 story home, resides on the ground floor, has a ramp to enter the home. Patient uses a motorized WC, has a walker, handicap accessible bathroom with grab bars, raised toilet seat. Patient reports she has left AKA, able to
transfer herself independently to and from motorized wheelchair, has had [facility] in the past
D/C plan: pt expressed her desire to return back home with [facility] and family support.
CM will follow with discharge plan updates as hospitalization progresses
--- NOTE | 2023-09-07 16:24 | W.PN.ID1 ---
Date of Service
Date of Service: September 07, 2023
Today's Communication
Transition to Levofloxacin 750mg po daily through 09/13/2023.
ID will sign off.
Assessment / Plan
# RLE wound cellulitis - improving
- Wound cx: Pseudomonas
Enterococcus in wound most likely colonization/contaminant
-Transition cefepime (d4) to Levofloxacin 750mg po daily through 09/13/2023
QTc 418
- Appreciate Wound CARE SERVICE.
- Continue with compression.
# Mild-moderate COVID19 infection
- Not uptodate with with booster.
-Symptom onset 08/30/23.
- Hypoxia improving.
- Out of window for tx benefit.
-Continue supportive care.
-Can dc isolation on 09/10/23 (10 days from sx onset).
# Fever resolved.
ID will sign off. Call prn.
#Additional Past Medical History:
CVA/TIA
HTN
DVT/PE
Afib
HFpEF
hypothyroidism
partial thyroidectomy
Right LE chronic venous stasis wounds
L TKR
R shoulder replacement
endometriosis s/p hysterectomy, colon resection
L AKA
cervical and lumbar fusion
Restless leg syndrome
Chief Complaint
-: Cellulitis and Other (COVID)
Subjective / Review of Systems
Feels tired. Leg is not weeping as much.
Vital Signs / Physical Exam
Vital Signs
Vital Signs
Temp Pulse Resp BP Pulse Ox
97.8 F 83 18 159/90 92
09/07/23 15:35 09/07/23 15:35 09/07/23 15:35 09/07/23 15:35 09/07/23 15:35
Physical Exam
Constitutional: No Acute Distress and Comfortable
Pulmonary: Clear
Gastrointestinal: Soft, Non Tender and Non Distended
Extremities: Negative Edema
Wound: Other (RLE venous stasis wounds now dry, + erythroderma)
Objective Data
Lab Data
Lab Results
09/06/23 03:03
09/06/23 03:03
PT 17.8 Sec (11.4-14.6) H 09/05/23 04:31
INR 1.46 09/05/23 04:31
APTT 36.2 Sec (23.4-35.0) H 09/05/23 04:31
Estimated Creat Clear 71 ml/min 09/06/23 03:03
Lactic Acid Cancelled 09/04/23 20:15
Total Bilirubin 0.3 mg/dl (0.2-1.3) 09/05/23 04:31
AST 26 U/L (14-36) 09/05/23 04:31
ALT 19 U/L (0-35) 09/05/23 04:31
Alkaline Phosphatase 75 U/L (38-126) 09/05/23 04:31
Most recent labs reviewed.
Micro Results:
09/04/23 18:22 Wound Culture - Final
Leg - Right Pseudomonas aeruginosa
Enterococcus faecalis
Enterococcus species
Gram Stain - Final
09/04/23 16:20 Blood Culture - Preliminary
Blood/Venous No Growth in 48 hours- Final report to follow
09/05/23 04:31 MRSA Screen - Final
Nose No Methicillin Resistant Staphylococcus aureus isolated.
09/04/23 CXR: Opacity involving the left lateral costophrenic angle, at least partially accounted for by prominent pericardial fat pad. On a portable AP examination, a small left pleural effusion is difficult to exclude. Patchy parenchymal opacity
within the left lower lung with some loss of definition of the left hemidiaphragm, with main differential considerations of atelectasis and/or pneumonia.
09/03/23 2V CXR: Low lung volumes. No active pulmonary process.
[2023-09-07 17:05] LABS: Glucose - Point of Care 90 mg/dl (70-99)
[2023-09-07] MEDS: LIPITOR 40 MG PO (19:52)
[2023-09-07 21:39] LABS: Glucose - Point of Care 107 mg/dl (70-99)
[2023-09-08] MEDS: ProAIR HFA INHALER 2 PUFF INH (02:28)
[2023-09-08 03:28] VITALS: BP 106/74
[2023-09-08 06:00] VITALS: BMI 38.7
[2023-09-08 07:35] VITALS: BP 131/78
[2023-09-08 07:41] LABS: Glucose - Point of Care 72 mg/dl (70-99)
--- NOTE | 2023-09-08 07:41 | W.PN.HOSP.TC ---
Today's Communication/Plan
-
Pulse ox off supplemental oxygen
Assessment / Plan
Assessment / Plan
# Septic Shock (fever, hypotension) on admission, likely source chronic right lower extremity cellulitis superimposed on underlying lymphedema
Sepsis with shock unresponsive to fluids requiring pressors.'
Patient received IV Levophed.
-Picture from visiting nurse show diffuse erythema and weeping of right lower extremity possibly secondary to underlying lymphedema
-Wound culture recently grew stenotrophomonas
- wound culture - Pseudomonas, Enterococcus, (both sens to Cefepime) blood cultures - NGTD, ID believes Enterococcus is contaminant
-IV fluids stopped, but continue to hold Bumex
-now on Levaquin
-Wound care consulted
ID consult, input appreciated
On admission, pt was confused with evidence of
Toxic metabolic encephalopathy from sepsis, noted lethargy and confusion when she presented to the ER
#Acute Hypoxic respiratory failure secondary to COVID infection, was at one time requiring 6 L/M NC, significantly improved
-On room air to 1-2 L oxygen currently, 94% on 1.5 l. Pt does have baseline of chronic hypoxic
-Chest x-ray shows opacity involving the left lateral costophrenic angle, patchy parenchymal opacity within the left lower lung which could be atelectasis versus pneumonia
this is most likely atelectasis, doubt PNA
-Dexamethasone 6 mg daily, nursing reports that pt concerned steroids can affect her mentally and was stopped
input from ID as to whether Paxlovid should be considered, appreciated, they did not believe was needed
# Hyperkalemia secondary to Bactrim
-Hold Bactrim
Better 5.3-->5.1-->4.7
# Abdominal pain secondary to constipation
doing better
-No bowel movement in 4 days, had BM yesterday as per nursing
-continue MiraLAX, Colace
History of CVA
History of PE/DVT
Paroxysmal atrial fibrillation
-Continue Eliquis
Chronic HFpEF
-Hold Bumex
-Continue nadolol
Essential hypertension
Hyperlipidemia
-Continue statin
GERD
-Continue omeprazole
Restless leg syndrome
-Continue ropinirole
Spinal stenosis
-Continue cyclobenzaprine
Neuropathy
-Continue pregabalin
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
History of partial thyroidectomy
Morbid obesity
Full code
DVT prophylaxis�Eliquis
Regular diet
continue supplemental oxygen
need baseline nonambulatory pulse ox to consider home oxygen at time of dc
reviewed with Dr. Merida
Anticipated Discharge: 24 - 48 hours
Subjective/Interval History
-
Date of Service: September 07
Looks better today, awake, alert
Objective Data
-
Vital Signs:
Vital Signs
Temp Pulse Resp BP Pulse Ox
98.2 F 88 18 106/74 95
09/08/23 03:28 09/08/23 03:28 09/08/23 03:28 09/08/23 03:28 09/08/23 03:28
I&O
09/07/23 09/08/23 09/09/23
06:59 06:59 06:59
Intake Total 1040 / 1040 1380 / 1380
Output Total 1300 / 1300 1150 / 1150
Balance -260 / -260 230 / 230
Review of Systems
-
History Source: Patient and Coordinated Provider
Constitutional: Denies Fever (Tmax 101.1 noted last on 09/03 at 16:30, now resolved)
Respiratory: Reports No Symptoms and Cough (better, almost fully resolved)
Cardiac: Reports No Symptoms
Abdomen/GI: Reports No Symptoms
Genitourinary: Reports No Symptoms
Physical Exam
-
General: Well Developed, Well Nourished and No Apparent Distress
HEENT: Normocephalic, Atraumatic and Moist Mucous Membranes
Respiratory: Clear to Auscultation; Negative Wheezes, Rales or Rhonchi
Cardiac: Regular Rhythm and S1/S2
GI: Soft, Nontender and Nondistended
Musculoskeletal: No Clubbing, No Cyanosis and Other (left AKA, rt leg examined, cellulitic changes have decreased)
Neuro: Awake, Alert and Oriented
[2023-09-08] MEDS: NOVOLOG FLEXPEN-LOW RESISTANCE SC ×3 (09:37→17:58)
[2023-09-08] MEDS: MIRALAX 17 GRAMS PO (09:38)
[2023-09-08] MEDS: PROTONIX 40 MG PO (09:39)
[2023-09-08] MEDS: VITAMIN C 500 MG PO (09:39)
[2023-09-08] MEDS: ELIQUIS 5 MG PO ×2 (09:39→20:45)
[2023-09-08] MEDS: VITAMIN D3 (cholecalciferol) 25 MCG PO (09:39)
[2023-09-08] MEDS: COLACE 100 MG PO ×2 (09:39→20:46)
[2023-09-08] MEDS: LYRICA 150 MG PO ×2 (09:39→20:46)
[2023-09-08] MEDS: LEVAQUIN 750 MG PO (09:39)
[2023-09-08] MEDS: THERAGRAN 1 TABLET PO (09:42)
--- NOTE | 2023-09-08 11:00 | W.PN.PUL.V3 ---
Today's Communication / Plan
-
Levofloxacin
Wean oxygen
Increase activity
Inhalers if needed
Outpatient pulmonary [id number] will sign off-please call with questions
Assessment
-
83-year-old with a history of DVT/PE, CVA, atrial fibrillation on Eliquis, chronic heart failure preserved EF, hypertension, hyperlipidemia, restless legs, left AKA who presented with fevers and hypotension felt to be septic noted to be covid
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
Sepsis with shock unresponsive to fluids requiring pressors
Covid positive-3 previous vaccinations-no recent booster
Left lower lobe atelectasis/small effusion/possible pneumonia
Hyperglycemia
Conditions present prior to admission:
Hypertension.
Hyperlipidemia.
DVT/PE.
Atrial fibrillation/Eliquis.
Chronic heart failure preserved EF.
GERD.
RLS.
RG/CPAP intolerant.
Asthma.
Spinal stenosis.
Neuropathy.
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
Partial thyroidectomy. Left knee replacement. Renal artery stenting. Hysterectomy. Right shoulder replacement. Laminectomy. Breast biopsy. Colon resection. BKA 2019. Spinal fusion.
Plan
Respiratory status improving
Continue supplemental oxygen-currently on 3 L
Assess discharge supplemental oxygen needs prior to discharge
Very well likely will need temporary oxygen at home-this can be evaluated in the outpatient setting and discontinued at a later date
Incentive spirometry
Inhalers as needed for intermittent bronchospasm
Cultures reviewed--
Wound cultures with Pseudomonas
Antibiotics per infectious disease-changed to levofloxacin 750 mg daily through 09/13/2023 from cefepime
Infectious disease following-correspondence reviewed
Monitor leukocytosis
Covid positive-3 previous vaccinations-no recent booster-not convinced patient has covid pneumonia
Symptom onset 08/30/2023
Isolation per protocol
Negative pressure room if available
Status post Decadron 6 mg for several days
Plaxlovid- out of window
DVT prophylaxis-on Eliquis
Early nutrition if possible
Early mobilization/bedside range of motion
Respiratory status improved-likely discharged on some supplemental oxygen-recommend outpatient reevaluation-pulmonary will sign off-please call with questions
Last seen by Dr. Merida for RG/CPAP intolerance and asthma 01/02/[id number] recommended-she is willing
Diagnostic Data:
Chest x-ray 07/25/22-mild subsegmental atelectasis versus interstitial pneumonia.
Chest x-ray 09/03/2023-low lung volumes, no acute process
Chest x-ray 09/04/2023-left lateral costophrenic angle opacification possibly small pleural effusion, patchy parenchymal opacification left lower lobe atelectasis versus pneumonia
Echocardiogram 07/26/22-year 65-70%, moderate mitral regurgitation, no change since 2020.
HST 03/13/20-ARAVIND-26.6, desaturation aelxander 80%, 32.7% of time spent less than 90% saturation.
PFT 01/03/20-FEV1 1.06-64%, FVC 1.4-63%, TLC 107%, RV 161%, DLCO 40%, DLCO/VA 77%. Moderate restriction on spirometry, some hyperinflation on lung volumes, and moderate reduction in diffusing capacity.
Spirometry 10/30/22-FEV1 1.05-64%, FVC 1.47-66%, no significant BD response. Mild to moderate restriction.
-----
Reviewed the patient's pertinent medical records including radiographs, pressor management, microbiology, laboratory evaluations, and discussion with primary team, consultants, pharmacy, nutrition, physical therapy, case management, charge nurse,
critical care nursing, and respiratory therapy. Time spent 51 mins.
Subjective Data
-
Date of Service:
Date of Service: September 08, 2023
Chief Complaint: Pulmonary Follow Up
Subjective:
Still on some oxygen, no complaints of increasing shortness of breath, chest pain or abdominal pain
Review of Systems
General: Other (Per HPI)
Objective Data
Data Reviewed
Vital Signs / I&O:
Vital Signs
Temp Pulse Resp BP Pulse Ox
97.8 F 89 18 131/78 93
09/08/23 07:35 09/08/23 07:35 09/08/23 07:35 09/08/23 07:35 09/08/23 07:35
Intake and Output
09/07/23 09/08/23 09/09/23
06:59 06:59 06:59
Intake Total 1040 / 1040 1380 / 1380
Output Total 1300 / 1300 1150 / 1150
Balance -260 / -260 230 / 230
SaO2: 93
Nasal Cannula flow liters per minute: 1.5
Physical Exam
General: Respiratory Distress (n), Comfortable and Other (NAD)
HEENT: Normocephalic, Anicteric and Moist Mucous Membranes
Cardiovascular: Regular Rhythm
Respiratory: Crackles (overall decreased, minimal rales) and Non-Labored Respirations
GI: Soft, Non Distended and Non Tender
Neurology: Awake, Alert, Oriented, AO x 3 and No Motor Deficits
Skin: Warm, Dry, Good Color, Cyanosis (n) and Jaundice (n)
Labs/Micro/Reports
Lab Data
09/06/23 03:03
09/06/23 03:03
Microbiology
09/04/23 16:20 Blood/Venous Blood Culture - Preliminary
No Growth in 72 hours- Final report to follow
09/04/23 18:22 Leg - Right Wound Culture - Final
Pseudomonas aeruginosa
Enterococcus faecalis
Enterococcus species
09/04/23 18:22 Leg - Right Gram Stain - Final
09/05/23 04:31 Nose MRSA Screen - Final
No Methicillin Resistant Staphylococcus aureus isolated.
[2023-09-08 11:40] VITALS: BP 136/68
[2023-09-08] MEDS: REQUIP 8 MG PO ×3 (11:51→20:45)
[2023-09-08 12:09] LABS: Glucose - Point of Care 77 mg/dl (70-99)
[2023-09-08] MEDS: HYDROPHOR 1 APPLIC TOPICAL (12:10)
[2023-09-08 15:45] VITALS: BP 103/58
[2023-09-08 17:39] LABS: Glucose - Point of Care 86 mg/dl (70-99)
[2023-09-08 19:36] VITALS: BP 120/74
[2023-09-08] MEDS: LIPITOR 40 MG PO (20:45)
[2023-09-08 21:38] LABS: Glucose - Point of Care 102 mg/dl (70-99)
[2023-09-08 23:23] VITALS: BP 129/78
[2023-09-09] VITALS (7 sets, daily range): BP systolic 101–137; BP diastolic 65–95; O2SAT 91
[2023-09-09 05:18] LABS: % Basophils 0.2 % (0-2); % Eosinophils 5.3 % (0-6); % Immature Granulocytes 0.4 % (0-0.5); % Lymphocytes 34.1 % (20.5-51.1); % Monocytes 10.5 % (1.7-9.3); % Neutrophils 49.5 % (42.2-75.2); Absolute Eosinophils 0.3 10^3/uL (0-0.7); Absolute Lymphocytes 1.8 10^3/uL (1.2-3.4); Absolute Monocytes 0.6 10^3/uL (0.1-0.6); Absolute Neutrophils 2.6 10^3/uL (1.4-6.5); Hematocrit 41.9 % (37.0-47.0); Hemoglobin 13.7 g/dL (12.0-16.0); Mean Corp Hgb Conc. 32.7 g/dL (33.0-37.0); Mean Corpuscular Hgb 27.6 pg (27.0-31.0); Mean Corpuscular Volume 84.5 fL (81.0-99.0); Mean Platelet Volume 8.9 fL (7.4-10.4); Nucleated Red Blood Cells % 0 %; Platelet Count 168 10^3/uL (130-400); Red Blood Cell Count 4.96 10^6/uL (4.20-5.40); Red Cell Dist. Width 16.4 % (11.5-14.5); White Blood Cell Count 5.3 10^3/uL (4.8-10.8)
[2023-09-09 05:40] LABS: Blood Urea Nitrogen 13 mg/dl (7-17); Calcium 8.5 mg/dl (8.4-10.2); Carbon Dioxide 37 mmol/L (22-30); Chloride 93 mmol/L (98-107); Estimated Creatinine Clearance 70 ml/min; Glucose 107 mg/dl (70-99); Potassium 3.7 mmol/L (3.5-5.1); Sodium 133 mmol/L (135-145); eGFR > 60.00
[2023-09-09] MEDS: FLEXERIL 5 MG PO (06:03)
--- NOTE | 2023-09-09 08:00 | PTCARENOTE ---
Am sugar not performed. Pt not interested in getting stuck all the time. made aware. Will cont to monitor
[2023-09-09] MEDS: LEVAQUIN 750 MG PO (09:35)
[2023-09-09] MEDS: ELIQUIS 5 MG PO ×2 (09:35→20:03)
[2023-09-09] MEDS: REQUIP 8 MG PO ×3 (09:35→22:16)
[2023-09-09] MEDS: VITAMIN D3 (cholecalciferol) 25 MCG PO (09:35)
[2023-09-09] MEDS: PROTONIX 40 MG PO (09:35)
[2023-09-09] MEDS: LYRICA 150 MG PO ×2 (09:35→20:04)
[2023-09-09] MEDS: VITAMIN C 500 MG PO (09:35)
[2023-09-09] MEDS: THERAGRAN 1 TABLET PO (09:35)
[2023-09-09] MEDS: MIRALAX PO (09:36)
[2023-09-09] MEDS: COLACE PO (09:36)
[2023-09-09] MEDS: NOVOLOG FLEXPEN-LOW RESISTANCE SC ×3 (09:54→18:16)
[2023-09-09] MEDS: HYDROPHOR 1 APPLIC TOPICAL (09:55)
--- NOTE | 2023-09-09 10:24 | W.PN.HOSP.TC ---
Addendum entered and electronically signed by Korey Spencer MD 09/09/23 18:13:
Just informed pt that family is requesting she go to SNF. She was adamant that she did not want a SNF and wished to go home. I requested that she contact family and decide with them planned disposition
Addendum entered and electronically signed by Korey Spencer MD 09/09/23 13:46:
received text from Stef Ashton, pt's PCP, who was in touch with pt's son, Brien Thompson ([phone]) who believe pt will benefit from short term SNF prior to coming home. Information relayed to JANNET Avina
Original Note:
Today's Communication/Plan
-
hold dc until tomorrow when support aspects will be in place at home
Assessment / Plan
Assessment / Plan
# Septic Shock (fever, hypotension) on admission, likely source chronic right lower extremity cellulitis superimposed on underlying lymphedema
Sepsis with shock unresponsive to fluids requiring pressors.'
Patient received IV Levophed initially.
-Picture from visiting nurse show diffuse erythema and weeping of right lower extremity possibly secondary to underlying lymphedema
my direct observation demonstrates healing rt lower extremity with residual changes
-Wound culture recently grew stenotrophomonas
- wound culture - Pseudomonas, Enterococcus, (both sens to Cefepime) blood cultures - NGTD, ID believes Enterococcus is contaminant
-IV fluids stopped, but continue to hold Bumex, would resume at time of discharge as she will be back on her usual diet
-now on Levaquin
-Wound care consulted
ID consult, input appreciated
On admission, pt was confused with evidence of
Toxic metabolic encephalopathy from sepsis, noted lethargy and confusion when she presented to the ER
#Acute Hypoxic respiratory failure secondary to COVID infection, was at one time requiring 6 L/M NC, significantly improved
-On room air to 1-2 L oxygen currently, 94% on 1.5 l. Pt does have baseline of chronic hypoxic
currently on room air pt is running 91-94%, discussed with pt, she prefers no oxygen at time of dc, Kailyn updated
-Chest x-ray shows opacity involving the left lateral costophrenic angle, patchy parenchymal opacity within the left lower lung which could be atelectasis versus pneumonia
Imp: this is most likely atelectasis, doubt PNA (no WBC, no fever and breathing improves after several deep breaths)
-Dexamethasone 6 mg daily, nursing reports that pt concerned steroids can affect her mentally and was stopped
input from ID as to whether Paxlovid should be considered, appreciated, they did not believe was needed
# Hyperkalemia secondary to Bactrim
-Hold Bactrim
Better 5.3-->5.1-->4.7-->3.7
# Abdominal pain secondary to constipation
doing better
-had large BM yesterday (09/07) with resolution of abdominal pain
-continue MiraLAX, Colace
History of CVA
History of PE/DVT
Paroxysmal atrial fibrillation
-Continue Eliquis
Chronic HFpEF
-Hold Bumex
-Continue nadolol
Essential hypertension
Hyperlipidemia
-Continue statin
GERD
-Continue omeprazole
Restless leg syndrome
-Continue ropinirole
Spinal stenosis
-Continue cyclobenzaprine
Neuropathy
-Continue pregabalin
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
History of partial thyroidectomy
Morbid obesity
Full code
DVT prophylaxis�Eliquis
Regular diet
currently plan is not to discharge on supplemental oxygen
reviewed with Dr. Merida
Discussed with pt discharge today. She is hesitant, (who is her primary field care manager) is not feeling well due to him having the Covid as well. They have a home health aide who will not be available until tomorrow and her son is currently in
[place] and not available to help. It does not sound as if it will be safe to dc her today and as per her request, will hold dc until tomorrow. JANNET Avina updated
Anticipated Discharge: Within 24 hours
Subjective/Interval History
-
Date of Service: September 09, 2023
Slowly feels better, but she is concerned that she is not ready for discharge
Objective Data
-
Labs:
Laboratory Results
09/09/23
05:03
WBC 5.3
Hgb 13.7
Hct 41.9
Plt Count 168
Sodium 133 L
Potassium 3.7
Chloride 93 L
Carbon Dioxide 37 H
BUN 13
Creatinine 0.5 L
Glucose 107 H
Calcium 8.5
Vital Signs:
Vital Signs
Temp Pulse Resp BP Pulse Ox
98.0 F 75 20 137/76 91
09/09/23 07:25 09/09/23 07:25 09/09/23 07:25 09/09/23 07:25 09/09/23 03:42
I&O
09/08/23 09/09/23 09/10/23
06:59 06:59 06:59
Intake Total 1380 / 1380 1140 / 1140
Output Total 1150 / 1150
Balance 230 / 230 1140 / 1140
Review of Systems
-
History Source: Patient and Coordinated Provider
Constitutional: Denies Fever (Tmax 101.1 noted last on 09/03 at 16:30, now resolved)
Respiratory: Reports No Symptoms and Cough (better, almost fully resolved)
Cardiac: Reports No Symptoms
Abdomen/GI: Reports No Symptoms
Genitourinary: Reports No Symptoms
Physical Exam
-
General: Well Developed, Well Nourished and No Apparent Distress
HEENT: Normocephalic, Atraumatic and Moist Mucous Membranes
Respiratory: Clear to Auscultation (improved air movement, taking deeper breaths, minimal atelectatic rales that improve with several deep breaths); Negative Wheezes, Rales or Rhonchi
Cardiac: Regular Rhythm and S1/S2
GI: Soft, Nontender and Nondistended
Musculoskeletal: No Clubbing, No Cyanosis and Other (left AKA, rt leg examined, cellulitic changes have decreased)
Neuro: Awake, Alert and Oriented
--- NOTE | 2023-09-09 11:26 | PTCARENOTE ---
Pt more lethargic today. Encouraged pt to participate in physical therapy. An increase in weakness and limited mobility due to body habitus has made it difficult for pt to perform getting oob bed safely. Safety concerns were strongly expressed to
pt so she was aware of her change in health and condition. Pt has stated that she has fallen several times at home and currently at risk to continue to do so from weakness from covid. Safety concerns were stressed. Thus recommendation of rehab was
in order. However pt was not on board in doing so. Will cont to monitor. Pt also placed back onto o2 due to her not feeling right and HR in the 120's. RA pox 88%. 02-2l 89-90% 02-3l 97% .
[2023-09-09 11:29] LABS: Glucose - Point of Care 128 mg/dl (70-99)
--- NOTE | 2023-09-09 14:20 | CM ---
Patient with Hx left AKA with Dx septic shock, Acute Hypoxic respiratory failure secondary to COVID infection. Seen by wound care nurse. O2 3L ---> Room air. Home O2 Assessment done today, PT recommends skilled rehab for transfer training.
Message from Dr Spencer; patient has borderline need for home O2 and patent doesn't want home O2 so hold off on ordering. Patient's PCP Dr Flores spoke with and they both feel best she go to SNF for a short stay since he is also getting
over Covid and too weak to care for her.
Spoke with patient's Carlitos; he prefers SNF referrals to [facility] He says his will probably resist going to SNF and may not want to go back to [facility]. He confirms patient does not have prosthesis for her left
leg as her AKA was too high to be fitted for one, and she has been managing well without it for 6 yrs, and doing her own transfers at home.
Attempted to speak with patient who was unavailable.
SNF referrals placed.
Plan follow up SNF referrals.
[2023-09-09] MEDS: LIPITOR 40 MG PO (20:04)
[2023-09-09] MEDS: REQUIP PO (20:04)
[2023-09-09] MEDS: COLACE 100 MG PO (20:04)
[2023-09-10 05:13] VITALS: BMI 38.3
[2023-09-10] MEDS: NOVOLOG FLEXPEN-LOW RESISTANCE SC ×3 (07:19→15:56)
[2023-09-10 07:40] VITALS: BP 152/87
[2023-09-10] MEDS: COLACE 100 MG PO ×2 (09:01→19:57)
[2023-09-10] MEDS: MIRALAX 17 GRAMS PO (09:01)
[2023-09-10] MEDS: VITAMIN D3 (cholecalciferol) 25 MCG PO (09:01)
[2023-09-10] MEDS: THERAGRAN 1 TABLET PO (09:01)
[2023-09-10] MEDS: REQUIP 8 MG PO ×3 (09:01→19:57)
[2023-09-10] MEDS: LYRICA 150 MG PO ×2 (09:02→19:57)
[2023-09-10] MEDS: VITAMIN C 500 MG PO (09:02)
[2023-09-10] MEDS: PROTONIX 40 MG PO (09:02)
[2023-09-10] MEDS: ELIQUIS 5 MG PO ×2 (09:02→19:57)
[2023-09-10] MEDS: LEVAQUIN 750 MG PO (09:05)
[2023-09-10] MEDS: HYDROPHOR 1 APPLIC TOPICAL ×2 (09:14→22:08)
[2023-09-10] MEDS: DESENEX/MITRAZOL/ZEASORB 1 APPLIC TOPICAL ×2 (09:14→19:58)
--- NOTE | 2023-09-10 11:06 | WOUNDNOTE ---
WON RN NOTE: Followed up with patient along with Dr. Wylie at bedside. R leg with less swelling and drainage. Wounds appear dryer and more defined. R upper daniels skin tear bleeding a little bit during assessment, controlled with pressure. Skin flap
no longer there, patient states it was ripped off during a dressing change. Recommended to Dr. Wylie to resume mupirocin topical to all wounds with local wound care daily and Tubigrip. Dressings changed, applied mupirocin that was already at bedside
and mineral oil applied to leg. Confirmed change in wound care with Dr. Wylie and will update orders/care plan. Patient able to turn with minimal assist, R heel and sacrum remain intact. Foam applied to heel to protect, encouraged turning schedule
to patient to prevent pressure injury, patient said she understands. On Accumax bed, asked nurse Avni that if patient doesn't get discharged within [address] on versa care air bed, states he will. Has been getting oob to recliner chair, air
cushion in use.
--- NOTE | 2023-09-10 11:09 | W.PN.HOSP.TC ---
Today's Communication/Plan
-
Needs home o2
Complete PO Levaquin - 09/13/2023
Assessment / Plan
Assessment / Plan
General: No Apparent Distress,
HEENT: Normocephalic, Atraumatic and Moist Mucous Membranes. No JVD
Respiratory: CTA B/L, No rales or crackles or wheezes.
Cardiac: Regular Rhythm and S1/S2.
GI: Soft, NT, ND, BS+
Musculoskeletal: No Cyanosis , No Edema
Skin: Dry, right lower extremity superficial wounds on the anterior lateral surface proximal to the ankle. Noted drainage and some bleeding.
Neuro: aao x3
Psych: normal affect
Septic shock now resolved.
Right lower extremity cellulitis, wound culture recently grew stenotrophomonas with the newest one growing Pseudomonas and Enterococcus. Blood cultures no growth to date.
-Evaluated by infectious diseases believed Enterococcus was a contaminant. Cefepime was eventually transitioned to Levaquin.
-Continue wound care
Toxic metabolic encephalopathy resolved
Acute hypoxemic respiratory failure secondary to COVID-19 infection.
-Refused steroids
-ID did not believe antiviral treatment was required
Off isolation
Will need home O2
Maintain SpO2 greater than 92%
-I had her on room air for approximately 18 minutes. Lowest O2 saturation was 87%. Was not able to recover on her own. Required supplemental oxygen at 2 L improved to 93 to 94%
Hyperkalemia -resolved
-Hold Bactrim
Abdominal pain secondary to constipation - regimen
-Continue bowel regimen
Paroxysmal atrial fibrillation
-Continue Eliquis
Chronic HFpEF
-Hold Bumex
-Continue nadolol
Essential hypertension
Hyperlipidemia
-Continue statin
GERD
-Continue omeprazole
Restless leg syndrome
-Continue ropinirole
Spinal stenosis
-Continue cyclobenzaprine
Neuropathy
-Continue pregabalin
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
History of partial thyroidectomy
Morbid obesity
Full code
DVT prophylaxis�Eliquis
Regular diet
Care management updated about home oxygen needs. Refusing/denying SNF. Wants to go home.
Anticipated Discharge: Within 24 hours
Subjective/Interval History
-
Date of Service: September 10, 2023
seen and examined. no new compaints. no acute overniggt events
Had a lengthy discussion with her at bedside. Turned off supplemental oxygen as she was on 3 L. Put on room air. During our conversation that lasted for about 18 minutes. Noted SpO2 of 87%. Became tachycardic into the 110s. Evidence of
conversational dyspnea noted.
She states that she is okay with going home with oxygen she just does not want to go to a nursing home facility as she has previously been there for her and it has not helped her. She states that she would like to go home she will just need some
help at home. Unfortunately at this time her cannot help her because he is also recovering from COVID.
She is upset with her RN from the previous night as she states she had rubbed off all the healthy skin that was new on her wounds. In that there bleeding and weeping and draining. Wound care was and to see her at the same time as I was.
Recommended to start mupirocin which has been ordered by wound care.
Objective Data
-
Vital Signs:
Vital Signs
Temp Pulse Resp BP Pulse Ox
98.0 F 97 16 152/87 96
09/10/23 07:40 09/10/23 07:40 09/10/23 07:40 09/10/23 07:40 09/10/23 07:40
I&O
09/09/23 09/10/23 09/11/23
06:59 06:59 06:59
Intake Total 1140 / 1140 960 / 960
Balance 1140 / 1140 960 / 960
[2023-09-10] MEDS: BACTROBAN 2% OINTMENT TOPICAL (12:51)
[2023-09-10 13:28] VITALS: PULSE 111; O2SAT 88
--- NOTE | 2023-09-10 15:08 | CM ---
Reviewed the chart notes and spoke with the patient at the bedside. Discussed PT recommendation of SNF/rehab prior to transitioning back to home. Patient wants to return to home with her VN and home health aides. Received call from Belem yung
coordinator ([phone]). Returned call and left message for call back. Patient would like to know what Belem's opinion is regarding SNF vs home with VN. CM continues to be available to patient/family and is monitoring medical plan for needs at
discharge.
Plan: Discharge plans depend on patient's progress. Home with resumption of services vs short term SNF.
[2023-09-10 15:40] VITALS: BP 99/67
[2023-09-10] MEDS: LIPITOR 40 MG PO (19:57)
[2023-09-10 21:15] LABS: Glucose - Point of Care 157 mg/dl (70-99)
[2023-09-10] MEDS: TYLENOL 650 MG PO (22:07)
[2023-09-10 23:12] VITALS: BP 122/68
[2023-09-11 07:28] LABS: Glucose - Point of Care 106 mg/dl (70-99)
[2023-09-11 07:40] VITALS: BP 144/80
[2023-09-11] MEDS: REQUIP 8 MG PO ×3 (08:24→20:17)
[2023-09-11] MEDS: PROTONIX 40 MG PO (08:24)
[2023-09-11] MEDS: VITAMIN D3 (cholecalciferol) 25 MCG PO (08:25)
[2023-09-11] MEDS: THERAGRAN 1 TABLET PO (08:25)
[2023-09-11] MEDS: ELIQUIS 5 MG PO ×2 (08:25→20:17)
[2023-09-11] MEDS: LEVAQUIN 750 MG PO (08:25)
[2023-09-11] MEDS: LYRICA 150 MG PO ×2 (08:25→20:17)
[2023-09-11] MEDS: VITAMIN C 500 MG PO (08:25)
[2023-09-11] MEDS: COLACE 100 MG PO ×2 (08:25→20:17)
[2023-09-11] MEDS: MIRALAX PO (08:26)
[2023-09-11] MEDS: HYDROPHOR 1 APPLIC TOPICAL (08:26)
[2023-09-11] MEDS: DESENEX/MITRAZOL/ZEASORB 1 APPLIC TOPICAL ×2 (08:26→20:17)
[2023-09-11] MEDS: BACTROBAN 2% OINTMENT 1 APPLIC TOPICAL (08:26)
[2023-09-11] MEDS: NOVOLOG FLEXPEN-LOW RESISTANCE SC ×3 (08:35→16:52)
--- NOTE | 2023-09-11 09:27 | CM ---
Addendum entered by Tri Nicole RN 09/11/23 13:34:
Received call from Belem multi care technician ([phone]). Per Belem, plan is for patient to go to rehab and transition back to home once able to stand and pivot and for facility to determine proper casimiro lift for patient if needed.
Addendum entered by Tri Nicole RN 09/11/23 13:30:
[facility] She will not know about bed availability until after her UR meeting on Sunday.
Original Note:
Reviewed the chart notes and spoke with the patient at the bedside. Explained to the patient that two of the facilities are unable to accept due to acuity and the other was interested, but would not be able to accept at earliest if a bed was
available 09/15/23. JANNET received a call from the patient's spouse. Discussed with spouse that JANNET spoke with Belem Barragan ([phone]) regarding possibility of patient going home with additional supports in place. Spouse would like patient to go to
a SNF when a bed is available. CM will reach out to facilities to see if a bed would be available this weekend for the patient. Spouse does not feel he can have her return to home until she is stronger. CM continues to be available to
patient/family and is monitoring medical plan for needs at discharge.
Plan: Discharge to SNF/rehab once a facility is able to accept.
--- NOTE | 2023-09-11 10:30 | W.PN.HOSP.TC ---
Today's Communication/Plan
-
Wean oxygen as tolerated
Continue PT OT
Continue discharge planning
Start mucolytic antitussive syrup
Assessment / Plan
Assessment / Plan
General: No Apparent Distress,
HEENT: Normocephalic, Atraumatic and Moist Mucous Membranes. No JVD
Respiratory: CTA B/L, No rales or crackles or wheezes.
Cardiac: Regular Rhythm and S1/S2.
GI: Soft, NT, ND, BS+
Musculoskeletal: No Cyanosis , No Edema
Skin: Dry, right lower extremity superficial wounds on the anterior lateral surface proximal to the ankle. Noted drainage and some bleeding.
Neuro: aao x3
Psych: normal affect
Septic shock now resolved.
Right lower extremity cellulitis, wound culture recently grew stenotrophomonas with the newest one growing Pseudomonas and Enterococcus. Blood cultures no growth to date.
-Evaluated by infectious diseases believed Enterococcus was a contaminant. Cefepime was eventually transitioned to Levaquin.
-Continue wound care
Toxic metabolic encephalopathy resolved
Acute hypoxemic respiratory failure secondary to COVID-19 infection.
-Refused steroids
-ID did not believe antiviral treatment was required
Off isolation
Will need home O2
Maintain SpO2 greater than 92%
-I had her on room air for approximately 18 minutes. Lowest O2 saturation was 87%. Was not able to recover on her own. Required supplemental oxygen at 2 L improved to 93 to 94%
Hyperkalemia -resolved
-Hold Bactrim
Abdominal pain secondary to constipation - regimen
-Continue bowel regimen
Paroxysmal atrial fibrillation
-Continue Eliquis
Chronic HFpEF
-Hold Bumex
-Continue nadolol
Essential hypertension
Hyperlipidemia
-Continue statin
GERD
-Continue omeprazole
Restless leg syndrome
-Continue ropinirole
Spinal stenosis
-Continue cyclobenzaprine
Neuropathy
-Continue pregabalin
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
History of partial thyroidectomy
Morbid obesity
Full code
DVT prophylaxis�Eliquis
Regular diet
Care management updated about home oxygen needs. Refusing/denying SNF. Wants to go home.
-Per CM unable to go to SNF until 09/14
-She is looking for her own and home/living nurse to help her and her .
Anticipated Discharge: Within 24 hours
Subjective/Interval History
-
Date of Service: September 11, 2023
No new complaints. No acute overnight events.
States that she is more congested today however feels like her mucus/congestion is breaking up. Asking for a mucolytic/antitussives
Objective Data
-
Vital Signs:
Vital Signs
Temp Pulse Resp BP Pulse Ox
98.0 F 89 20 144/80 91
09/11/23 07:40 09/11/23 07:40 09/11/23 07:40 09/11/23 07:40 09/11/23 08:00
I&O
09/10/23 09/11/23 09/12/23
06:59 06:59 06:59
Intake Total 960 / 960 570 / 570
Balance 960 / 960 570 / 570
[2023-09-11 13:01] LABS: Glucose - Point of Care 85 mg/dl (70-99)
[2023-09-11 15:43] VITALS: BP 126/73
[2023-09-11 16:40] LABS: Glucose - Point of Care 106 mg/dl (70-99)
[2023-09-11] MEDS: TYLENOL 650 MG PO (20:16)
[2023-09-11] MEDS: LIPITOR 40 MG PO (20:17)
[2023-09-11] MEDS: ROBITUSSIN DM 5 ML PO (21:12)
[2023-09-11 21:26] LABS: Glucose - Point of Care 199 mg/dl (70-99)
[2023-09-11 23:07] VITALS: BP 119/66
[2023-09-12] MEDS: FLEXERIL 5 MG PO (02:26)
[2023-09-12 04:17] VITALS: BMI 38.5
[2023-09-12 06:00] VITALS: BMI 37.9; BMI 38.0
[2023-09-12 07:40] VITALS: BP 133/54
[2023-09-12 08:09] LABS: Glucose - Point of Care 100 mg/dl (70-99)
[2023-09-12] MEDS: NOVOLOG FLEXPEN-LOW RESISTANCE SC ×3 (08:11→16:51)
[2023-09-12] MEDS: HYDROPHOR 1 APPLIC TOPICAL (08:11)
[2023-09-12] MEDS: DESENEX/MITRAZOL/ZEASORB 1 APPLIC TOPICAL ×2 (08:12→19:47)
[2023-09-12] MEDS: THERAGRAN 1 TABLET PO (08:13)
[2023-09-12] MEDS: LYRICA 150 MG PO ×2 (08:13→19:44)
[2023-09-12] MEDS: REQUIP 8 MG PO ×3 (08:13→19:45)
[2023-09-12] MEDS: PROTONIX 40 MG PO (08:13)
[2023-09-12] MEDS: ELIQUIS 5 MG PO ×2 (08:14→19:45)
[2023-09-12] MEDS: COLACE 100 MG PO ×2 (08:14→19:44)
[2023-09-12] MEDS: VITAMIN D3 (cholecalciferol) 25 MCG PO (08:14)
[2023-09-12] MEDS: VITAMIN C 500 MG PO (08:14)
[2023-09-12] MEDS: MIRALAX PO (08:15)
[2023-09-12] MEDS: BACTROBAN 2% OINTMENT 1 APPLIC TOPICAL (08:15)
[2023-09-12] MEDS: ROBITUSSIN DM 5 ML PO ×3 (08:22→21:22)
[2023-09-12] MEDS: LEVAQUIN 750 MG PO (10:45)
[2023-09-12 11:43] LABS: Glucose - Point of Care 93 mg/dl (70-99)
--- NOTE | 2023-09-12 11:51 | W.PN.HOSP.TC ---
Today's Communication/Plan
-
pending dispo/placement
Assessment / Plan
Assessment / Plan
General: No Apparent Distress,
HEENT: Normocephalic, Atraumatic and Moist Mucous Membranes. No JVD
Respiratory: CTA B/L, No rales or crackles or wheezes.
Cardiac: Regular Rhythm and S1/S2.
GI: Soft, NT, ND, BS+
Musculoskeletal: No Cyanosis , No Edema
Skin: Dry, right lower extremity superficial wounds on the anterior lateral surface proximal to the ankle. CDI bandage today
Neuro: aao x3
Psych: normal affect
Septic shock now resolved.
Right lower extremity cellulitis, wound culture recently grew stenotrophomonas with the newest one growing Pseudomonas and Enterococcus. Blood cultures no growth to date.
-Evaluated by infectious diseases believed Enterococcus was a contaminant. Cefepime was eventually transitioned to Levaquin 09/12.
-Continue wound care
Toxic metabolic encephalopathy resolved
Acute hypoxemic respiratory failure secondary to COVID-19 infection.
-Refused steroids
-ID did not believe antiviral treatment was required
Off isolation
Will need home O2
Maintain SpO2 greater than 92%
-I had her on room air for approximately 18 minutes. Lowest O2 saturation was 87%. Was not able to recover on her own. Required supplemental oxygen at 2 L improved to 93 to 94%
Hyperkalemia -resolved
-Hold Bactrim
Abdominal pain secondary to constipation - regimen
-Continue bowel regimen
Paroxysmal atrial fibrillation
-Continue Eliquis
Chronic HFpEF
-Hold Bumex
-Continue nadolol
Essential hypertension
Hyperlipidemia
-Continue statin
GERD
-Continue omeprazole
Restless leg syndrome
-Continue ropinirole
Spinal stenosis
-Continue cyclobenzaprine
Neuropathy
-Continue pregabalin
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
History of partial thyroidectomy
Morbid obesity
Full code
DVT prophylaxis�Eliquis
Regular diet
Care management updated about home oxygen needs. Refusing/denying SNF. Wants to go home.
-Per CM unable to go to SNF until 09/14
-She is looking for her own and home/living nurse to help her and her .
Anticipated Discharge: Within 24 hours
Subjective/Interval History
-
Date of Service: September 12, 2023
seen and examined
no new compalints
no acute overniggt events
states she is feeling better.
in good spirits as her and so came to see her yesterday
we spoke about what her does for a living and about world travel
Objective Data
-
Vital Signs:
Vital Signs
Temp Pulse Resp BP Pulse Ox
97.4 F 71 16 133/54 94
09/12/23 07:40 09/12/23 07:40 09/12/23 07:40 09/12/23 07:40 09/12/23 09:36
I&O
09/11/23 09/12/23 09/13/23
06:59 06:59 06:59
Intake Total 570 / 570 1500 / 1500
Balance 570 / 570 1500 / 1500
[2023-09-12] MEDS: TYLENOL 650 MG PO ×2 (15:12→21:25)
[2023-09-12] MEDS: ProAIR HFA INHALER 2 PUFF INH ×2 (15:25→20:54)
[2023-09-12 15:30] VITALS: BP 119/80
--- NOTE | 2023-09-12 16:15 | CM ---
Reviewed the chart notes and spoke with the patient at the bedside. Discussed SNF options. Call placed to [facility] inquiring on possibility of a bed on Sat/Sun. They are in process of reviewing. Patient agreeable to a referral being sent to
[facility]. CM continues to be available to patient/family and is monitoring medical plan for needs at discharge.
Plan: Discharge to SNF/rehab once bed found.
[2023-09-12 16:50] LABS: Glucose - Point of Care 122 mg/dl (70-99)
[2023-09-12] MEDS: LIPITOR 40 MG PO (19:45)
[2023-09-12 21:28] LABS: Glucose - Point of Care 128 mg/dl (70-99)
[2023-09-12 23:18] VITALS: BP 109/57
[2023-09-13] MEDS: ROBITUSSIN DM 5 ML PO (05:55)
[2023-09-13 06:00] VITALS: BMI 37.9
[2023-09-13 07:39] LABS: Glucose - Point of Care 82 mg/dl (70-99)
[2023-09-13 07:40] VITALS: BP 97/68
[2023-09-13] MEDS: NOVOLOG FLEXPEN-LOW RESISTANCE SC ×3 (08:37→17:05)
[2023-09-13] MEDS: COLACE 100 MG PO ×2 (08:54→20:25)
[2023-09-13] MEDS: VITAMIN C 500 MG PO (08:54)
[2023-09-13] MEDS: DESENEX/MITRAZOL/ZEASORB 1 APPLIC TOPICAL ×2 (08:54→20:26)
[2023-09-13] MEDS: VITAMIN D3 (cholecalciferol) 25 MCG PO (08:54)
[2023-09-13] MEDS: PROTONIX 40 MG PO (08:55)
[2023-09-13] MEDS: REQUIP 8 MG PO ×3 (08:55→20:25)
[2023-09-13] MEDS: LYRICA 150 MG PO ×2 (08:55→20:25)
[2023-09-13] MEDS: BACTROBAN 2% OINTMENT 1 APPLIC TOPICAL (08:56)
[2023-09-13] MEDS: ELIQUIS 5 MG PO ×2 (08:56→20:25)
[2023-09-13] MEDS: HYDROPHOR 1 APPLIC TOPICAL (08:56)
[2023-09-13] MEDS: THERAGRAN 1 TABLET PO (08:56)
[2023-09-13] MEDS: MIRALAX PO (08:57)
[2023-09-13] MEDS: LEVAQUIN 750 MG PO (09:01)
[2023-09-13 12:11] LABS: Glucose - Point of Care 86 mg/dl (70-99)
--- NOTE | 2023-09-13 12:26 | W.PN.HOSP.TC ---
Today's Communication/Plan
-
.
Assessment / Plan
Assessment / Plan
General: No Apparent Distress,
HEENT: Normocephalic, Atraumatic and Moist Mucous Membranes. No JVD
Respiratory: WJeexomg throughout lung feilds
Cardiac: Regular Rhythm and S1/S2.
GI: Soft, NT, ND, BS+
Musculoskeletal: No Cyanosis , No Edema
Skin: Dry, right lower extremity superficial wounds on the anterior lateral surface proximal to the ankle. CDI bandage today
Neuro: aao x3
Psych: normal affect
Septic shock now resolved.
Right lower extremity cellulitis, wound culture recently grew stenotrophomonas with the newest one growing Pseudomonas and Enterococcus. Blood cultures no growth to date.
-Evaluated by infectious diseases believed Enterococcus was a contaminant. Cefepime was eventually transitioned to Levaquin 09/12.
-Continue wound care
Toxic metabolic encephalopathy resolved
Acute hypoxemic respiratory failure secondary to COVID-19 infection.
-Refused steroids
-ID did not believe antiviral treatment was required
Off isolation
Will need home O2
Maintain SpO2 greater than 92%
-I had her on room air for approximately 18 minutes. Lowest O2 saturation was 87%. Was not able to recover on her own. Required supplemental oxygen at 2 L improved to 93 to 94%
Start albuterol prn
Incentive mag
Hyperkalemia -resolved
-Hold Bactrim
Abdominal pain secondary to constipation - regimen
-Continue bowel regimen
Paroxysmal atrial fibrillation
-Continue Eliquis
Chronic HFpEF
-Hold Bumex
-Continue nadolol
Essential hypertension
Hyperlipidemia
-Continue statin
GERD
-Continue omeprazole
Restless leg syndrome
-Continue ropinirole
Spinal stenosis
-Continue cyclobenzaprine
Neuropathy
-Continue pregabalin
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
History of partial thyroidectomy
Morbid obesity
Full code
DVT prophylaxis�Eliquis
Regular diet
Care management updated about home oxygen needs. Refusing/denying SNF. Wants to go home.
-Per CM unable to go to SNF until 09/14
-She is looking for her own and home/living nurse to help her and her .
Anticipated Discharge: > 48 hours
Subjective/Interval History
-
Date of Service: September 13, 2023
Seen and examined. No new complaints. No acute overnight events.
Today we had a discussion about her granddaughter how she was in no immediate now is a top community development manager for [employer]. She has a 8-month-old son that is blind. However she thinks that he can see a little bit as he looks into a black
reflective material while standing up in the staring directly at himself.
Objective Data
-
Vital Signs:
Vital Signs
Temp Pulse Resp BP Pulse Ox
99.0 F 89 18 97/68 93
09/13/23 07:40 09/13/23 07:40 09/13/23 07:40 09/13/23 07:40 09/13/23 10:22
I&O
09/12/23 09/13/23 09/14/23
06:59 06:59 06:59
Intake Total 1500 / 1500 960 / 960
Balance 1500 / 1500 960 / 960
--- NOTE | 2023-09-13 15:39 | CM ---
Reviewed the chart notes and spoke with the patient at the bedside. Patient has been accepted at [facility] for Sunday. IMM signed and placed on chart. CM continues to be available to patient/family and is monitoring medical plan for needs at
discharge.
Plan: Discharge to [facility] on Sunday.
[2023-09-13 15:45] VITALS: BP 112/68
[2023-09-13 15:50] VITALS: BP 112/68; PULSE 100; O2SAT 82
[2023-09-13 15:51] VITALS: BP 112/68; PULSE 100; O2SAT 82
[2023-09-13 17:02] LABS: Glucose - Point of Care 89 mg/dl (70-99)
[2023-09-13] MEDS: LIPITOR 40 MG PO (20:25)
[2023-09-13] MEDS: FLEXERIL 5 MG PO (20:28)
[2023-09-13] MEDS: ProAIR HFA INHALER 1 PUFF INH (20:30)
[2023-09-13 21:17] LABS: Glucose - Point of Care 142 mg/dl (70-99)
[2023-09-13 23:11] VITALS: BP 132/61
[2023-09-14] MEDS: ROBITUSSIN DM 5 ML PO ×2 (01:54→08:50)
[2023-09-14 06:00] VITALS: BMI 37.7
[2023-09-14 07:45] VITALS: BP 119/79
[2023-09-14 07:54] LABS: Glucose - Point of Care 103 mg/dl (70-99)
[2023-09-14] MEDS: NOVOLOG FLEXPEN-LOW RESISTANCE SC ×3 (07:58→16:18)
[2023-09-14] MEDS: REQUIP 8 MG PO ×3 (08:38→20:37)
[2023-09-14] MEDS: LYRICA 150 MG PO ×2 (08:39→20:37)
[2023-09-14] MEDS: PROTONIX 40 MG PO (08:39)
[2023-09-14] MEDS: VITAMIN D3 (cholecalciferol) 25 MCG PO (08:40)
[2023-09-14] MEDS: ELIQUIS 5 MG PO ×2 (08:40→20:37)
[2023-09-14] MEDS: THERAGRAN 1 TABLET PO (08:40)
[2023-09-14] MEDS: COLACE 100 MG PO ×2 (08:40→20:37)
[2023-09-14] MEDS: MIRALAX PO (08:41)
[2023-09-14] MEDS: BACTROBAN 2% OINTMENT 1 APPLIC TOPICAL (08:41)
[2023-09-14] MEDS: HYDROPHOR 1 APPLIC TOPICAL (08:41)
[2023-09-14] MEDS: DESENEX/MITRAZOL/ZEASORB 1 APPLIC TOPICAL ×2 (08:41→20:37)
[2023-09-14] MEDS: VITAMIN C 500 MG PO (08:44)
[2023-09-14] MEDS: ProAIR HFA INHALER 1 PUFF INH (10:39)
[2023-09-14 12:42] LABS: Glucose - Point of Care 110 mg/dl (70-99)
--- NOTE | 2023-09-14 14:35 | W.PN.HOSP.TC ---
Today's Communication/Plan
-
,
Assessment / Plan
Assessment / Plan
General: No Apparent Distress,
HEENT: Normocephalic, Atraumatic and Moist Mucous Membranes. No JVD
Respiratory: WJeexomg throughout lung feilds
Cardiac: Regular Rhythm and S1/S2.
GI: Soft, NT, ND, BS+
Musculoskeletal: No Cyanosis , No Edema
Skin: Dry, right lower extremity superficial wounds on the anterior lateral surface proximal to the ankle. CDI bandage today
Neuro: aao x3
Psych: normal affect
Septic shock now resolved.
Right lower extremity cellulitis, wound culture recently grew stenotrophomonas with the newest one growing Pseudomonas and Enterococcus. Blood cultures no growth to date.
-Evaluated by infectious diseases believed Enterococcus was a contaminant. Cefepime was eventually transitioned to Levaquin 09/12.
-Continue wound care
Toxic metabolic encephalopathy resolved
Acute hypoxemic respiratory failure secondary to COVID-19 infection.
-Refused steroids
-ID did not believe antiviral treatment was required
Off isolation
Will need home O2
Maintain SpO2 greater than 92%
-I had her on room air for approximately 18 minutes. Lowest O2 saturation was 87%. Was not able to recover on her own. Required supplemental oxygen at 2 L improved to 93 to 94%
Start albuterol prn
Incentive mag
Hyperkalemia -resolved
-Hold Bactrim
Abdominal pain secondary to constipation - regimen
-Continue bowel regimen
Paroxysmal atrial fibrillation
-Continue Eliquis
Chronic HFpEF
-Hold Bumex
-Continue nadolol
Essential hypertension
Hyperlipidemia
-Continue statin
GERD
-Continue omeprazole
Restless leg syndrome
-Continue ropinirole
Spinal stenosis
-Continue cyclobenzaprine
Neuropathy
-Continue pregabalin
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
History of partial thyroidectomy
Morbid obesity
Full code
DVT prophylaxis�Eliquis
Regular diet
Care management updated about home oxygen needs. Refusing/denying SNF. Wants to go home.
-Per CM unable to go to SNF until 09/14
-She is looking for her own and home/living nurse to help her and her .
Anticipated Discharge: Within 24 hours
Subjective/Interval History
-
Date of Service: September 14, 2023
seen and examind
Objective Data
-
Vital Signs:
Vital Signs
Temp Pulse Resp BP Pulse Ox
99.1 F 98 20 119/79 95
09/14/23 07:45 09/14/23 10:43 09/14/23 10:43 09/14/23 07:45 09/14/23 10:43
I&O
09/13/23 09/14/23 09/15/23
06:59 06:59 06:59
Intake Total 960 / 960 60 / 60
Balance 960 / 960 60 / 60
[2023-09-14 15:31] VITALS: BP 127/83
[2023-09-14 15:41] VITALS: BP 164/75; PULSE 97; O2SAT 95
[2023-09-14 16:15] LABS: Glucose - Point of Care 98 mg/dl (70-99)
--- NOTE | 2023-09-14 16:33 | CM ---
Patient with Hx left AKA with Dx Acute hypoxemic respiratory failure secondary to COVID-19 infection, RLE cellulitis. O2 4L. PT & OT recommend skilled rehab. Per nurse; forgetful.
Spoke with Cindy, [facility]; the soonest they can accept the patient is tomorrow due to the onset date of her Covid Infection. The for report [phone], fax [phone]. CM can contact Nursing [employer] Attendant tomorrow at [phone].
[address] Wylie; 1pm discharge time ok tomorrow - will request ambulance for 1pm.
Spoke with patient's Carlitos; he spoke with the patient today and feels she is a little confused. He agrees to d/c tomorrow by ambulance. IMM completed and copy sent to his email at [email or web address].
Ambulance forms sent to [facility] with request for 1pm transport tomorrow.
Plan [facility] tomorrow by ambulance- 1pm transport requested.
[2023-09-14] MEDS: BUMEX 1 MG PO (17:19)
[2023-09-14] MEDS: LIPITOR 40 MG PO (20:37)
[2023-09-14 21:16] LABS: Glucose - Point of Care 115 mg/dl (70-99)
[2023-09-14 23:21] VITALS: BP 109/69
[2023-09-15 06:00] VITALS: BMI 37.3
[2023-09-15 07:38] LABS: Glucose - Point of Care 109 mg/dl (70-99)
[2023-09-15 07:52] VITALS: BP 104/56
[2023-09-15] MEDS: NOVOLOG FLEXPEN-LOW RESISTANCE SC ×2 (08:22→12:54)
[2023-09-15] MEDS: BACTROBAN 2% OINTMENT 1 APPLIC TOPICAL (08:22)
[2023-09-15] MEDS: COLACE 100 MG PO (08:23)
[2023-09-15] MEDS: PROTONIX 40 MG PO (08:23)
[2023-09-15] MEDS: REQUIP 8 MG PO ×2 (08:23→14:12)
[2023-09-15] MEDS: VITAMIN C 500 MG PO (08:24)
[2023-09-15] MEDS: HYDROPHOR 1 APPLIC TOPICAL (08:24)
[2023-09-15] MEDS: THERAGRAN 1 TABLET PO (08:24)
[2023-09-15] MEDS: VITAMIN D3 (cholecalciferol) 25 MCG PO (08:24)
[2023-09-15] MEDS: LYRICA 150 MG PO (08:24)
[2023-09-15] MEDS: DESENEX/MITRAZOL/ZEASORB 1 APPLIC TOPICAL (08:24)
[2023-09-15] MEDS: ELIQUIS 5 MG PO (08:24)
[2023-09-15] MEDS: MIRALAX PO (08:25)
[2023-09-15] MEDS: OCEAN, SALINE MIST 2 SPRAYS NASAL (08:58)
[2023-09-15] MEDS: ROBITUSSIN DM 5 ML PO (09:00)
--- NOTE | 2023-09-15 09:12 | CM ---
Reviewed the chart notes and spoke with the patient at the bedside.
Plan: Discharge to [facility] today,.
Call report to: [phone]
Fax report to: [phone]
CM can contact Nursing [employer] Programmer at [phone].
Medical necessity and transport forms on chart.
--- NOTE | 2023-09-15 09:23 | W.PN.HOSP.TC ---
Today's Communication/Plan
-
dc to [facility]
Assessment / Plan
Assessment / Plan
General: No Apparent Distress,
HEENT: Normocephalic, Atraumatic and Moist Mucous Membranes. No JVD
Respiratory: WJeexomg throughout lung feilds
Cardiac: Regular Rhythm and S1/S2.
GI: Soft, NT, ND, BS+
Musculoskeletal: No Cyanosis , No Edema
Skin: Dry, right lower extremity superficial wounds on the anterior lateral surface proximal to the ankle. CDI bandage today
Neuro: aao x3
Psych: normal affect
Septic shock now resolved.
Right lower extremity cellulitis, wound culture recently grew stenotrophomonas with the newest one growing Pseudomonas and Enterococcus. Blood cultures no growth to date.
-Evaluated by infectious diseases believed Enterococcus was a contaminant. Cefepime was eventually transitioned to Levaquin 09/12.
-Continue wound care
Toxic metabolic encephalopathy resolved
Acute hypoxemic respiratory failure secondary to COVID-19 infection.
-Refused steroids
-ID did not believe antiviral treatment was required
Off isolation
Will need home O2
Maintain SpO2 greater than 92%
-I had her on room air for approximately 18 minutes. Lowest O2 saturation was 87%. Was not able to recover on her own. Required supplemental oxygen at 2 L improved to 93 to 94%
Start albuterol prn
Incentive mag
Hyperkalemia -resolved
-Hold Bactrim
Abdominal pain secondary to constipation - regimen
-Continue bowel regimen
Paroxysmal atrial fibrillation
-Continue Eliquis
Chronic HFpEF
-Hold Bumex
-Continue nadolol
Essential hypertension
Hyperlipidemia
-Continue statin
GERD
-Continue omeprazole
Restless leg syndrome
-Continue ropinirole
Spinal stenosis
-Continue cyclobenzaprine
Neuropathy
-Continue pregabalin
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
History of partial thyroidectomy
Morbid obesity
Full code
DVT prophylaxis�Eliquis
Regular diet
Care management updated about home oxygen needs. Refusing/denying SNF. Wants to go home.
-Per CM unable to go to SNF until 09/14
-She is looking for her own and home/living nurse to help her and her .
Anticipated Discharge: Today
Subjective/Interval History
-
Date of Service: September 15, 2023
seen and exmined
nose feels congested and with dry scabs
start humidified air
nasal saline
Objective Data
-
Vital Signs:
Vital Signs
Temp Pulse Resp BP Pulse Ox
97.9 F 77 20 104/56 95
09/15/23 07:52 09/15/23 07:52 09/15/23 07:52 09/15/23 07:52 09/15/23 08:00
I&O
09/14/23 09/15/23 09/16/23
06:59 06:59 06:59
Intake Total 60 / 60 820 / 820
Balance 60 / 60 820 / 820
--- NOTE | 2023-09-15 09:32 | W.DCSUMMARY ---
Discharge Summary
Discharge Data
Date of Admission: 09/04/23
Date of Discharge: 09/15/23
-
Pending Results: No
Hospital Course
83 F history of CVA, PE/DVT, atrial fibrillation on Eliquis, chronic HFpEF, hypertension, hyperlipidemia, GERD, restless leg syndrome, spinal stenosis, neuropathy, left AKA in 2018 due to MRSA infection, partial thyroidectomy presented with
lethargy confusion found to have right lower extremity cellulitis for which culture grew stenotrophomonas. Was treated with cefepime and eventually transition to Levaquin. Attempts to treat with Bactrim however developed high potassium therefore
this was discontinued. Completed antibiotics on 09/12. Hospitalization was further complicated by acute hypoxemic respiratory failure secondary to COVID-19 infection was evaluated by infectious diseases who recommended steroids however was refused.
And infectious diseases did not believe antiviral treatment was required. Was not abk eto wean oxygen therefore will send to SNF with O2 and plan to wean there. Provide Humidified air. Outpatient PCP follow up. Outpatient cardiology follow up.
Wound Care Instructions
R leg: clean with soap and water, mupirocin to open wounds, adaptic, alginate, abd pads and kerlix daily and prn drainage.
Tubigrip F or Jeovanny wrap knee high daily, can remove at bedtime if able
Offloading cushion for wheelchair
leg elevation when sitting as tolerated.
turning schedule when in bed
Follow up with Dr. Castañeda as scheduled.
09/02
IMPRESSION:
Low lung volumes. No active pulmonary process.
09/03
IMPRESSION:
Opacity involving the left lateral costophrenic angle, at least partially accounted for by prominent pericardial fat pad. On a portable AP examination, a small left pleural effusion is difficult to exclude.
Patchy parenchymal opacity within the left lower lung with some loss of definition of the left hemidiaphragm, with main differential considerations of atelectasis and/or pneumonia.
No convincing evidence for pulmonary edema pattern.
09/07
IMPRESSION:
1. Moderately decreased bilateral lung volumes with mild subsegmental atelectasis and scarring in both lower lungs.
2. Mild cardiomegaly.
3. Bilateral reverse total shoulder arthroplasties in place.
4. Previous bilateral multilevel posterior instrumentation in the cervical and lumbar spine.
Discharge Plan
-
Patient Disposition: Custodial/SNF
Discharge Diagnosis/Procedures: Right lower extremity cellulitis
Acute hypoxic respirtaory failure
Condition: Good
Diet: As tolerated
Activity: As tolerated
Activity Restrictions/Additional Instructions:
Presented with lethargy confusion found to have right lower extremity cellulitis for which culture grew stenotrophomonas. Was treated with cefepime and eventually transition to Levaquin. Attempts to treat with Bactrim however developed high
potassium therefore this was discontinued. Completed antibiotics on 09/12. Hospitalization was further complicated by acute hypoxemic respiratory failure secondary to COVID-19 infection was evaluated by infectious diseases who recommended steroids
however was refused. And infectious diseases did not believe antiviral treatment was required. Was not abk eto wean oxygen therefore will send to SNF with O2 and plan to wean there. Provide Humidified air. Outpatient PCP follow up. Outpatient
cardiology follow up.
Wound Care Instructions
R leg: clean with soap and water, mupirocin to open wounds, adaptic, alginate, abd pads and kerlix daily and prn drainage.
Tubigrip F or Jeovanny wrap knee high daily, can remove at bedtime if able
Offloading cushion for wheelchair
leg elevation when sitting as tolerated.
turning schedule when in bed
Follow up with Dr. Castañeda as scheduled.
09/02
IMPRESSION:
Low lung volumes. No active pulmonary process.
09/03
IMPRESSION:
Opacity involving the left lateral costophrenic angle, at least partially accounted for by prominent pericardial fat pad. On a portable AP examination, a small left pleural effusion is difficult to exclude.
Patchy parenchymal opacity within the left lower lung with some loss of definition of the left hemidiaphragm, with main differential considerations of atelectasis and/or pneumonia.
No convincing evidence for pulmonary edema pattern.
09/07
IMPRESSION:
1. Moderately decreased bilateral lung volumes with mild subsegmental atelectasis and scarring in both lower lungs.
2. Mild cardiomegaly.
3. Bilateral reverse total shoulder arthroplasties in place.
4. Previous bilateral multilevel posterior instrumentation in the cervical and lumbar spine.
Referrals:
Stef Flores MD [Family Provider] -
Wilder Merida MD [Active] - in two to four weeks
(Dr. Merida or nurse practitioner
Last seen 12/2022
Follow-up for shortness of breath, sleep apnea, asthma-full PFTs and 6-minute walk test)
Prescriptions:
New
miconazole nitrate [Miconazorb AF] 2 % Powder
1 applic topical BID Qty: 1 0RF
dextromethorphan-guaifenesin 10-100 mg/5 mL Syrup
5 ml PO Q6HPRN PRN (Reason: cough) Qty: 15 0RF
mupirocin 2 % Ointment
1 applic topical DAILY Qty: 1 0RF
albuterol sulfate 90 mcg/actuation Hfa Aerosol Inhaler
1 puff inhalation R Q4HPRN PRN (Reason: sob wheezing) Qty: 1 0RF
Saline Nasal 0.65 % Aerosol,[place]
2 sprays intranasal QIDPRN PRN (Reason: nasal congestion) Qty: 15 0RF
Continued
atorvastatin [Lipitor] 40 MG tablet
40 mg PO HS
albuterol sulfate [Ventolin HFA] 90 MCG/PUFF HFA aerosol inhaler
2 puff inhalation R Q4HPRN PRN (Reason: sob)
Refresh Optive 0.5-0.9 % Drops
2 drp BOTH EYES BIDPRN PRN (Reason: dry eyes)
ropinirole 2 MG tablet
8 mg PO TID
Eliquis 5 MG tablet
5 mg PO BID
pregabalin 150 mg capsule
150 mg PO BID
Patient Comments:
09/04/2023: last filled 07/27/23, 180 tabs for 90 days from [facility][id number]
omeprazole 40 mg capsule,delayed release(DR/EC)
40 mg PO DAILY
nadolol 40 mg tablet
40 mg PO DAILY
ipratropium-albuterol 0.5 mg-3 mg(2.5 mg base)/3 mL Solution For Nebulization
3 ml INHALATION R Q6HPRN PRN (Reason: sob)
therapeutic multivitamin Tablet
1 tab PO DAILY
mineral oil-hydrophil petrolat Ointment
1 applic TOPICAL TIDPRN PRN (Reason: dry skin)
acetaminophen [Tylenol Extra Strength] 500 mg Tablet
1,000 mg PO Q8HPRN PRN (Reason: mild pain)
ascorbic acid (vitamin C) [Vitamin C] 500 mg Tablet
500 mg PO DAILY
bumetanide 1 mg Tablet
1 mg PO MOWEFR
mupirocin 2 % Ointment
1 applic TOPICAL DAILY
cyclobenzaprine 5 mg Tablet
5 mg PO HSPRN PRN (Reason: muscle spasms)
cholecalciferol (vitamin D3) [Vitamin D3] 25 mcg (1,000 unit) Tablet
25 mcg PO DAILY
Unknown Antifungal cream
1 applic topical DAILY
ondansetron 4 mg tablet,disintegrating
4 mg PO Q8HPRN PRN (Reason: nausea and vomiting)
Discontinued
sulfamethoxazole-trimethoprim [Bactrim DS] 800-160 mg Tablet
1 tab PO BID
Discharge Orders:
Discharge Patient (As Directed); Ordered 09/15/23
Ordered By: Phillip Wylie
Discharge Date and Time
Print Language: JAPANESE
[2023-09-15 11:53] VITALS: BP 141/79
[2023-09-15 12:54] LABS: Glucose - Point of Care 96 mg/dl (70-99)
[2023-09-15 15:55] VITALS: BP 101/77
== END 2023-09-15 17:08 | DRG 871 ==
LOC: 2 NORTH 18:25
PROVIDERS: Internal Medicine; Nurse Practitioner Primary Care; ADMITTING PHYSICIAN Hospitalist; ATTENDING PHYSICIAN Hospitalist; EMERGENCY PHYSICIAN Emergency Medicine; FAMILY PHYSICIAN Family Medicine; OTHER PHYSICIAN Internal Medicine Critical Care Medicine; OTHER PHYSICIAN Internal Medicine Infectious Disease
PROC: 3E033XZ Introduction of Vasopressor into Peripheral Vein, Percutaneous Approach (ICD-10-PCS; 2023-09-04)
DX: A41.9 Sepsis, unspecified organism (principal); G92.8 Other toxic encephalopathy; U07.1 COVID-19; R65.21 Severe sepsis with septic shock; J96.01 Acute respiratory failure with hypoxia; I50.32 Chronic diastolic (congestive) heart failure; L03.115 Cellulitis of right lower limb; J98.11 Atelectasis; I48.0 Paroxysmal atrial fibrillation; I11.0 Hypertensive heart disease with heart failure; E78.00 Pure hypercholesterolemia, unspecified; E87.5 Hyperkalemia; T36.8X5A Adverse effect of other systemic antibiotics, initial encounter; G25.81 Restless legs syndrome; G47.33 Obstructive sleep apnea (adult) (pediatric); J45.909 Unspecified asthma, uncomplicated; I89.0 Lymphedema, not elsewhere classified; K59.00 Constipation, unspecified; M48.00 Spinal stenosis, site unspecified; R73.9 Hyperglycemia, unspecified; B96.5 Pseudomonas (aeruginosa) (mallei) (pseudomallei) as the cause of diseases classified elsewhere; E89.0 Postprocedural hypothyroidism; G62.9 Polyneuropathy, unspecified; I87.8 Other specified disorders of veins; K21.9 Gastro-esophageal reflux disease without esophagitis; E66.01 Morbid (severe) obesity due to excess calories; Z68.38 Body mass index [BMI] 38.0-38.9, adult; Z79.82 Long term (current) use of aspirin; Z79.01 Long term (current) use of anticoagulants; Z79.84 Long term (current) use of oral hypoglycemic drugs; Z79.4 Long term (current) use of insulin; Z98.1 Arthrodesis status; Z96.611 Presence of right artificial shoulder joint; Z91.199 Patient's noncompliance with other medical treatment and regimen due to unspecified reason; Z89.612 Acquired absence of left leg above knee; Z86.73 Personal history of transient ischemic attack (TIA), and cerebral infarction without residual deficits; Z86.718 Personal history of other venous thrombosis and embolism; Z86.711 Personal history of pulmonary embolism; Z86.14 Personal history of Methicillin resistant Staphylococcus aureus infection; Z79.899 Other long term (current) drug therapy; Z88.1 Allergy status to other antibiotic agents; Z88.0 Allergy status to penicillin; Z22.359 Carrier of Enterobacterales, unspecified
CPT/HCPCS: 71045; 71046; 80048; 80053; 80202; 81003; 82962; 83605; 83690; 83880; 84484; 85025; 85610; 85730; 87040; 87070; 87077; 87186; 87205; 87811; 93005; 94640; 96361; 96374; 96375; 97163; 97166; 97530; 97535; 99291

== ENCOUNTER → 2023-09-20 10:23 | Outpatient (REF) | payer OTHER, MEDICARE, BC, SELFPAY ==
[2023-09-20 12:05] LABS: % Basophils 0.5 % (0-2); % Eosinophils 2.5 % (0-6); % Immature Granulocytes 0.4 % (0-0.5); % Lymphocytes 28.7 % (20.5-51.1); % Monocytes 7.6 % (1.7-9.3); % Neutrophils 60.3 % (42.2-75.2); Absolute Eosinophils 0.2 10^3/uL (0-0.7); Absolute Lymphocytes 2.4 10^3/uL (1.2-3.4); Absolute Monocytes 0.7 10^3/uL (0.1-0.6); Absolute Neutrophils 5.1 10^3/uL (1.4-6.5); Hematocrit 37.1 % (37.0-47.0); Hemoglobin 12.2 g/dL (12.0-16.0); Mean Corp Hgb Conc. 32.9 g/dL (33.0-37.0); Mean Corpuscular Hgb 28.8 pg (27.0-31.0); Mean Corpuscular Volume 87.5 fL (81.0-99.0); Mean Platelet Volume 10.5 fL (7.4-10.4); Nucleated Red Blood Cells % 0 %; Platelet Count 217 10^3/uL (130-400); Red Blood Cell Count 4.24 10^6/uL (4.20-5.40); Red Cell Dist. Width 16.5 % (11.5-14.5); White Blood Cell Count 8.5 10^3/uL (4.8-10.8)
[2023-09-20 12:22] LABS: Blood Urea Nitrogen 17 mg/dl (7-17); Calcium 7.1 mg/dl (8.4-10.2); Chloride 91 mmol/L (98-107); Glucose 92 mg/dl (70-99); Sodium 137 mmol/L (135-145); eGFR > 60.00
[2023-09-20 12:36] LABS: Carbon Dioxide 43 mmol/L (22-30)
== END ==
LOC: OLABP 10:23
PROVIDERS: ATTENDING PHYSICIAN Family Medicine
DX: G60.9 Hereditary and idiopathic neuropathy, unspecified (principal); M48.07 Spinal stenosis, lumbosacral region; G25.81 Restless legs syndrome; I11.0 Hypertensive heart disease with heart failure; I50.33 Acute on chronic diastolic (congestive) heart failure; E87.5 Hyperkalemia; I48.0 Paroxysmal atrial fibrillation; M62.81 Muscle weakness (generalized); K21.9 Gastro-esophageal reflux disease without esophagitis; U07.1 COVID-19; L03.115 Cellulitis of right lower limb
CPT/HCPCS: 80048; 85025

== ENCOUNTER → 2023-09-21 10:41 | Outpatient (REF) | payer OTHER, MEDICARE, BC, SELFPAY ==
[2023-09-21 13:14] LABS: Blood Urea Nitrogen 17 mg/dl (7-17); Calcium 7.2 mg/dl (8.4-10.2); Carbon Dioxide 36 mmol/L (22-30); Chloride 94 mmol/L (98-107); Glucose 102 mg/dl (70-99); Magnesium 1.8 mg/dl (1.6-2.3); Potassium 2.6 mmol/L (3.5-5.1); Sodium 137 mmol/L (135-145); eGFR > 60.00
== END ==
LOC: OLABP 10:41
PROVIDERS: ATTENDING PHYSICIAN Family Medicine
DX: Z89.619 Acquired absence of unspecified leg above knee (principal); G60.9 Hereditary and idiopathic neuropathy, unspecified; M48.07 Spinal stenosis, lumbosacral region; G25.81 Restless legs syndrome; I11.0 Hypertensive heart disease with heart failure; I50.33 Acute on chronic diastolic (congestive) heart failure; E87.5 Hyperkalemia; I48.0 Paroxysmal atrial fibrillation; M62.81 Muscle weakness (generalized); A41.9 Sepsis, unspecified organism; K21.9 Gastro-esophageal reflux disease without esophagitis; U07.1 COVID-19; L03.115 Cellulitis of right lower limb
CPT/HCPCS: 36415; 80048; 83735

== ENCOUNTER → 2023-09-24 12:11 | Outpatient (REF) | payer OTHER, MEDICARE, BC, SELFPAY ==
[2023-09-24 13:46] LABS: Blood Urea Nitrogen 17 mg/dl (7-17); Calcium 8.2 mg/dl (8.4-10.2); Carbon Dioxide 35 mmol/L (22-30); Chloride 98 mmol/L (98-107); Glucose 110 mg/dl (70-99); Potassium 4.2 mmol/L (3.5-5.1); Sodium 138 mmol/L (135-145); eGFR > 60.00
== END ==
LOC: OLABP 12:11
PROVIDERS: ATTENDING PHYSICIAN Family Medicine
DX: Z89.619 Acquired absence of unspecified leg above knee (principal); G60.9 Hereditary and idiopathic neuropathy, unspecified; M48.07 Spinal stenosis, lumbosacral region; G25.81 Restless legs syndrome; I11.0 Hypertensive heart disease with heart failure; I50.33 Acute on chronic diastolic (congestive) heart failure; K21.9 Gastro-esophageal reflux disease without esophagitis; U07.1 COVID-19; E87.5 Hyperkalemia; L03.115 Cellulitis of right lower limb; I48.0 Paroxysmal atrial fibrillation; M62.81 Muscle weakness (generalized); A41.9 Sepsis, unspecified organism
CPT/HCPCS: 36415; 80048

== ENCOUNTER 2024-01-18 11:53 | Inpatient (IN) | payer MEDICARE, BC, SELFPAY ==
[2024-01-17] VITALS (9 sets, daily range): BP systolic 101–138; BP diastolic 46–79; BMI 40.5
--- NOTE | 2024-01-17 16:28 | ED.GENMED ---
History of Present Illness
<Lara rGey PA-C - Last Filed: 01/17/24 22:48>
General
Chief Complaint: Weakness
Source: patient
Exam Limitations: none
Time Seen by Provider: 01/17/24 16:23
Nursing documentation reviewed up to this point in time: agreed with
History of Present Illness
History of Present Illness:
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 Patient's and daughter at bedside. Patient states that
she has been noticing worsening shortness of breath gradually over the past 2 days which appeared more severe today. She also states she has been extremely weak and tired. Patient does note a pressure type sensation across her chest that is
nonexertional and nonpleuritic. Patient denies any recent fevers or cough. No sick contacts. Patient denies any notable increase in lower extremity swelling. No urinary symptoms.
Patient was seen in primary care's office today given shortness of breath and found to be hypoxic. Patient was transported to the emergency department via EMS from primary care's office.
Patient has chronic right lower leg wound for which she is followed weekly with wound care. However�she does state that about 1 week ago wound seemed to acutely worsen. She was seen by wound care this past Sunday where they did not feel it was
acutely infected and placed her on a new ointment which she has not received yet.
Past History
<Lara Grey PA-C - Last Filed: 01/17/24 22:48>
Past History
ED Past Medical History: HTN, Hypercholesterolemia and Other (DVT, cervical disc disease, osteoarthritis, MRSA, DVT/PE); Negative Arrthythmia or IDDM
ED Past Surgical History: Orthopedic (Cervical-lumbar fusion, right shoulder replacement 2014, left knee replacement)
Social History
Tobacco: Non-smoker
Alcohol: None
Drug: None
Personal:
Living: with family
Employment: Retired
Family History
Family History: Hypertension
Review of Systems
<Lara Grey PA-C - Last Filed: 01/17/24 22:48>
Review of Systems
Allergies reviewed?: Yes
All Other Systems: ROS reviewed and negative except as documented in HPI and ROS
Phy Exam
<Lara Grey PA-C - Last Filed: 01/17/24 22:48>
Physical Exam
Physical Exam:
Vitals: Oxygen saturation 87 on room air. Otherwise vital signs stable. Afebrile
General: Patient is weak appearing, no acute distress. Nontoxic appearing
Skin: Large nearly circumferential wound to right lower extremity just superior to ankle with visible granulation tissue versus pus.
Head: Normocephalic, atraumatic
Eyes: Sclera nonicteric. EOMs intact. No nystagmus.
Throat: Protecting airway
Neck: Normal ROM, no cervical spine tenderness, no meningismus
Cardiac: Regular rate and rhythm, no murmurs.
Pulm: Normal respiratory effort, no wheezes, rales, rhonchi heard on exam. Hypoxic
Abdomen: Abdomen soft. No abdominal tenderness.
Extremities: Large wound to right lower extremity as described above. Palpable DP pulses to right lower extremity. Left above-knee amputation.
Neuro: AAOx3. Grossly intact.
Psychiatric: Normal affect.
Course
<Lara Grey PA-C - Last Filed: 01/17/24 22:48>
Orders/Labs/Results
Orders:
Orders
01/17/24 16:23
Electrocardiogram (*1) Urgent
Reason for Study: Other
Other Reason for Exam: Respiratory Distress
Cardiac Monitoring- Treatment ONCE
EKG- Treatment ONCE
IV Insert/Care/Rem.- Treatment PRN
CR Chest - 2 Views Urgent
Comment:
Reason For Exam: respiratory distress
O2 Therapy [RESP] Urgent
Titrate/Wean O2 to maintain O2 sat greater than (%): 93
Special Instructions: TO MAINTAIN CONTINUOUS O2 SATS >/= 93%
Pulse Ox/cont/shift [RESP] Urgent
Quantity: 1
Special Instructions: continuous pulse ox
01/17/24 16:33
Complete Blood Count/With Diff Urgent
NT-proBNP Urgent
Troponin I Urgent
01/17/24 16:47
Urinalysis Reflex To Culture Urgent
01/17/24 17:18
COVID-19 Antigen Urgent
Source: Nasal Swab
Influenza A+B Rapid Molecular Urgent
WILLIAM Source: Nasal Swab
Specimen Description:
01/17/24 17:56
Add On- LAB Urgent
Tests Added?: TSH w/ reflex to T4
01/17/24 18:00
Comprehensive Metabolic Panel Urgent
TSH Reflex To Free T4 Urgent
Comment: ADD ON
01/17/24 19:31
0.9% Sodium Chloride 500 ml [Nss] 500 ml IV BOLUS
01/17/24 19:32
CT Chest Pe Study Urgent
Comment:
Reason For Exam: hypoxia, SOB, hx PE
01/17/24 19:37
Troponin I Urgent
Wound Culture [Wound/Abscess/Other Culture] Urgent
WILLIAM Source: Leg
Specimen Description: Right
Date Specimen was Collected: 01/17/24
Time Specimen was Collected: 19:36
01/17/24 21:14
Ropinirole [Requip] 8 mg PO NOW STA
Vancomycin [Vancocin] 2,000 mg 0.9% Sodium Chloride 500 ml [Nss] 500 ml IV NOW
01/17/24 22:38
Procalcitonin Routine
PCT Algorithmm Indication: Respiratory
Abnormal Lab Results
01/17/24 01/17/24
16:33 18:00
MCHC 30.9 L g/dL
(33.0-37.0)
RDW 15.9 H %
(11.5-14.5)
Absolute Monos (auto) 0.7 H 10^3/uL
(0.1-0.6)
Carbon Dioxide 36 H mmol/L
(22-30)
Creatinine 0.5 L mg/dL
(0.6-1.0)
Calcium 8.2 L mg/dl
(8.4-10.2)
Total Protein 5.6 L g/dl
(6.3-8.2)
Albumin 3.0 L g/dl
(3.5-5.0)
01/17/24 16:33
01/17/24 18:00
Vital Signs
Initial and Last Documented VS:
Initial Vital Signs
Pulse Resp BP Pulse Ox
58 14 120/46 93
01/17/24 16:24 01/17/24 16:24 01/17/24 16:24 01/17/24 16:24
Last Documented Vital Signs
Temp Pulse Resp BP Pulse Ox
97.4 F 68 17 138/75 98
01/17/24 21:25 01/17/24 22:00 01/17/24 22:00 01/17/24 22:00 01/17/24 22:00
<Korey Vasquez DO - Last Filed: 01/17/24 20:08>
Orders/Labs/Results
Orders:
Orders
01/17/24 16:23
Electrocardiogram (*1) Urgent
Reason for Study: Other
Other Reason for Exam: Respiratory Distress
Cardiac Monitoring- Treatment ONCE
EKG- Treatment ONCE
IV Insert/Care/Rem.- Treatment PRN
CR Chest - 2 Views Urgent
Comment:
Reason For Exam: respiratory distress
O2 Therapy [RESP] Urgent
Titrate/Wean O2 to maintain O2 sat greater than (%): 93
Special Instructions: TO MAINTAIN CONTINUOUS O2 SATS >/= 93%
Pulse Ox/cont/shift [RESP] Urgent
Quantity: 1
Special Instructions: continuous pulse ox
01/17/24 16:33
Complete Blood Count/With Diff Urgent
NT-proBNP Urgent
Troponin I Urgent
01/17/24 16:47
Urinalysis Reflex To Culture Urgent
01/17/24 17:18
COVID-19 Antigen Urgent
Source: Nasal Swab
Influenza A+B Rapid Molecular Urgent
WILLIAM Source: Nasal Swab
Specimen Description:
01/17/24 17:56
Add On- LAB Urgent
Tests Added?: TSH w/ reflex to T4
01/17/24 18:00
Comprehensive Metabolic Panel Urgent
TSH Reflex To Free T4 Urgent
Comment: ADD ON
01/17/24 19:31
0.9% Sodium Chloride 500 ml [Nss] 500 ml IV BOLUS
01/17/24 19:32
CT Chest Pe Study Urgent
Comment:
Reason For Exam: hypoxia, SOB, hx PE
01/17/24 19:37
Troponin I Urgent
Wound Culture [Wound/Abscess/Other Culture] Urgent
WILLIAM Source: Leg
Specimen Description: Right
Date Specimen was Collected: 01/17/24
Time Specimen was Collected: 19:36
01/17/24 21:14
Ropinirole [Requip] 8 mg PO NOW STA
Vancomycin [Vancocin] 2,000 mg 0.9% Sodium Chloride 500 ml [Nss] 500 ml IV NOW
01/17/24 22:38
Procalcitonin Routine
PCT Algorithmm Indication: Respiratory
Abnormal Lab Results
01/17/24 01/17/24
16:33 18:00
MCHC 30.9 L g/dL
(33.0-37.0)
RDW 15.9 H %
(11.5-14.5)
Absolute Monos (auto) 0.7 H 10^3/uL
(0.1-0.6)
Carbon Dioxide 36 H mmol/L
(22-30)
Creatinine 0.5 L mg/dL
(0.6-1.0)
Calcium 8.2 L mg/dl
(8.4-10.2)
Total Protein 5.6 L g/dl
(6.3-8.2)
Albumin 3.0 L g/dl
(3.5-5.0)
01/17/24 16:33
01/17/24 18:00
Vital Signs
Initial and Last Documented VS:
Initial Vital Signs
Pulse Resp BP Pulse Ox
58 14 120/46 93
01/17/24 16:24 01/17/24 16:24 01/17/24 16:24 01/17/24 16:24
Last Documented Vital Signs
Temp Pulse Resp BP Pulse Ox
97.4 F 68 17 138/75 98
01/17/24 21:25 01/17/24 22:00 01/17/24 22:00 01/17/24 22:00 01/17/24 22:00
<Lara Grey PA-C - Last Filed: 01/17/24 22:48>
MDM/Problems Addressed
Differential Diagnosis Includes:
Not limited to: Acute CHF, atrial fibrillation, pneumonia, PE, ACS, viral illness, cellulitis, UTI,
MDM/Problems Addressed:
83-year-old female presenting with progressively worsening weakness and shortness of breath over the past 2 days, found to be hypoxic at PCPs office and transported to the emergency department. Chronic wound to right lower extremity with acute
worsening over the past week which has been seen by wound care. No fevers, cough. Patient found to be 87% on room air on arrival to emergency department, otherwise stable vital signs. On exam�patient is weak appearing, in no apparent distress.
Cardio/pulmonary assessment relatively unremarkable. She does have a large nearly circumferential wound to her right lower extremity with granulation tissue versus pus. While this may be all chronic wound�concern for possible acute infection get
worsening and surrounding erythema. Will obtain wound culture. EKG obtained upon arrival shows normal sinus rhythm that any acute ischemic changes. Differential broad at this time although given hypoxia considerations include possible CHF,
cardiac arrhythmia, ACS. Lower suspicion for infectious etiology including pneumonia given patient is afebrile with no other infectious symptoms. Will obtain lab work, viral swabs, urinalysis, chest x-ray. Closely monitor and reassess
Chronic conditions affecting care:
Atrial fibrillation on Eliquis, history of PE, venous insufficiency
Acute Exacerbation and/or Progression of Chronic Illness:
N/A
<Lara Grey PA-C - Last Filed: 01/17/24 22:48>
*Radiology
Radiology exam reviewed: preliminary read by ED provider (No acute abnormalities) and radiology read reviewed
*Pulse Oximetry
Patient hypoxic: yes (87% on room air-placed on 3 L nasal cannula)
*EKG
Interpreted by ED Provider?: Yes
EKG Intrepretation Date: 01/17/24
Interpretation: abnormal
Comparison EKG: changes noted
Heart Rate: 57
Rate: bradycardiac
Rhythm: sinus
[place]: normal axis
Interval: normal QT interval
QRS Pattern: normal QRS
Ischemia: non-specific ST changes
*Bonderizer Operator Interpretation
Rate: normal
Interpretation: normal
Heart Rate: 56
Rhythm: sinus
*Critical Care Note
Total Time (30-74mins, 75-104mins- exclusive of procedures): Not Applicable
<Lara Grey PA-C - Last Filed: 01/17/24 22:48>
Update Note
Update Note:
Update: Labs reviewed. No leukocytosis. Patient is mildly hypercarbic which appears chronic. Initial troponin undetectable. Will trend given history of chest pain and hypoxia. proBNP only very mildly elevated 883. Viral swabs negative initial
read of chest x-ray without any acute abnormalities to explain hypoxia. At this point do not suspect acute CHF. Given persistent hypoxia and 3 L supplemental oxygen requirement�will obtain CTA chest to rule out other pulmonary process.
Update: CTA chest without acute abnormalities. Etiology of hypoxia uncertain at this time. However given supplemental O2 requirement and worsening wound with history of MRSA infection�patient will require admission to hospital. Will start patient
on IV vancomycin pending wound culture. Patient accepted to hospitalist service in stable condition. Patient seen with attending physician.
ED Attending Note
<Lara Grey PA-C - Last Filed: 01/17/24 22:48>
-
Portions of this chart may have been created with voice recognition software.� Occasional wrong word or��sound alike� substitutions may have occurred due to the inherent limitations of voice recognition software.
<Korey Vasquez DO - Last Filed: 01/17/24 20:08>
ED Attending Note
Patient seen and examined by attending physician: Yes
I performed the substantive portion of visit, reviewed & personally made and approve the management plan that is documented in note by myself or ADRIANNA.: Yes
ED Attending Note:
Patient is a 83-year-old nondiabetic female who presents to the emergency department complaining of weakness and shortness of breath today. Patient does have a history of PE approximately 25 years ago following knee replacement. Patient is on
Eliquis. Patient also has a chronic wound of her right lower leg that seems to have worsened suddenly over the past week. Patient saw her physician 3 days ago. Patient denies fever or chills. Patient denies any pain in the leg. Patient has
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 Patient denies any chest pain or palpitations. Patient denies any GI or symptoms. On physical exam the patient is on oxygen at this time and feels better. Heart is regular lungs are clear. The
right lower extremity just proximal to the ankle shows what appears to be a 3rd-4th degree wound with granulation versus pus. Patient be admitted to the hospital. She is been hypoxic. Will probably check a CT of the chest. But patient will be
admitted.
Discharge Plan
Departure
Patient Disposition: Admit
Date of Disposition: 01/17/24
Time of Disposition: 21:56
Presentation/result/management discussed w/ accepting MD/DO: Hospitalist
Discharge Problem:
Hypoxia, Open wound of right lower extremity
Prescriptions:
No Action
atorvastatin [Lipitor] 40 MG tablet
40 mg PO HS
ropinirole 2 MG tablet
8 mg PO TID
Eliquis 5 MG tablet
5 mg PO BID
pregabalin 150 mg capsule
150 mg PO BID
Patient Comments:
09/04/2023: last filled 07/27/23, 180 tabs for 90 days from [id number]
omeprazole 40 mg capsule,delayed release(DR/EC)
40 mg PO DAILY
nadolol 40 mg tablet
20 mg PO HS
albuterol sulfate 90 mcg/actuation HFA aerosol inhaler
2 puff inhalation R Q4HPRN PRN (Reason: sob wheezing)
Referrals:
Jude Perez MD [Family Provider] -
Interventions
Interventions:
*Risk Screen - Suicide Last Done: 01/17/24 16:24
*General Assessment Last Done: 01/17/24 16:24
*Neglect/Abuse Screening Last Done: 01/17/24 16:24
*ED COVID-19 Vaccine History Last Done: 01/17/24 16:24
ED- Cardiac Assessment Last Done: 01/17/24 19:47
ED- Pulmonary Assessment Last Done: 01/17/24 19:47
Discharge Date and Time
Print Language: ALBANIAN
[2024-01-17 16:49] LABS: % Basophils 0.4 % (0-2); % Eosinophils 4.2 % (0-6); % Immature Granulocytes 0.3 % (0-0.5); % Monocytes 8.3 % (1.7-9.3); % Neutrophils 65.8 % (42.2-75.2); Absolute Eosinophils 0.3 10^3/uL (0-0.7); Absolute Lymphocytes 1.6 10^3/uL (1.2-3.4); Absolute Monocytes 0.7 10^3/uL (0.1-0.6); Absolute Neutrophils 5.1 10^3/uL (1.4-6.5); Hematocrit 41.8 % (37.0-47.0); Hemoglobin 12.9 g/dL (12.0-16.0); Mean Corp Hgb Conc. 30.9 g/dL (33.0-37.0); Mean Corpuscular Hgb 28.5 pg (27.0-31.0); Mean Corpuscular Volume 92.3 fL (81.0-99.0); Mean Platelet Volume 9.4 fL (7.4-10.4); Nucleated Red Blood Cells % 0 %; Platelet Count 217 10^3/uL (130-400); Red Blood Cell Count 4.53 10^6/uL (4.20-5.40); Red Cell Dist. Width 15.9 % (11.5-14.5); White Blood Cell Count 7.8 10^3/uL (4.8-10.8)
[2024-01-17 17:11] LABS: NT-proBNP 883 pg/ml; Troponin I < 0.012 ng/ml
[2024-01-17 17:48] LABS: COVID-19 Antigen Negative (Negative)
[2024-01-17 18:30] LABS: ALT (SGPT) 18 U/L (0-35); AST (SGOT) 21 U/L (14-36); Alkaline Phosphatase 70 U/L (38-126); Blood Urea Nitrogen 14 mg/dl (7-17); Calcium 8.2 mg/dl (8.4-10.2); Carbon Dioxide 36 mmol/L (22-30); Estimated Creatinine Clearance 72 ml/min; Glucose 85 mg/dl (70-99); Total Bilirubin 0.4 mg/dl (0.2-1.3); Total Protein 5.6 g/dl (6.3-8.2); eGFR > 60.00
[2024-01-17 18:40] LABS: Chloride 98 mmol/L (98-107); Potassium 4.2 mmol/L (3.5-5.1); Sodium 137 mmol/L (135-145)
[2024-01-17 19:14] LABS: TSH Reflex To Free T4 1.88 uIU/ml (0.47-4.68)
[2024-01-17] MEDS: NSS 500 IV (19:40)
[2024-01-17 20:15] LABS: Troponin I < 0.012 ng/ml
[2024-01-17] MEDS: REQUIP 8 MG PO (21:47)
[2024-01-17] MEDS: VANCOCIN 540 MG IV (21:48)
--- NOTE | 2024-01-17 22:09 | HPS.HSE ---
Family Physician
-
Family Physician: Jude Perez MD
Chief Complaint
-
hypoxia
History of Present Illness
Patient is a 83-year-old female with past medical history significant for CVA, PE/DVT, atrial fibrillation on Eliquis, chronic HFpEF, hypertension, hyperlipidemia, GERD, restless leg syndrome, spinal stenosis and neuropathy who presented to
[facility] for evaluation of shortness of breath and hypoxia. Patient went to primary care today for 2 days of increased shortness of breath and was found to be hypoxic. Sent via EMS to ED for evaluation. Patient denies any recent fevers, chills,
cough, chest pain, nausea, vomiting, constipation, diarrhea or urinary symptoms.
Medical History
Past Medical History
Past Medical History: Reports Other
Additional Past Medical History:
CVA
PE/DVT
atrial fibrillation on Eliquis
chronic HFpEF
hypertension
hyperlipidemia
GERD
restless leg syndrome
spinal stenosis
neuropathy
Past Surgical History: Reports Other
Additional Past Surgical History:
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
partial thyroidectomy
Cervical-lumbar fusion
right shoulder replacement 2014
left knee replacement
Social History
Tobacco: Non-smoker
Alcohol: None
Drug: None
Personal:
Living: With Family
Family History
Family History: Not pertinent
Allergies / Home Medications
Allergies reflects when Allergies were last updated in [facility].
Home Medications with original date entered in [facility]
Allergy/Medication List:
Allergies
Allergy/AdvReac Type Severity Reaction Status Date / Time
adhesive [Adhesive] Allergy Itching/RED Verified 01/17/24 16:35
NESS
Aminoglycosides Allergy Pharmacy Verified 01/17/24 16:35
to Review
azithromycin [Azithromycin] Allergy patient Verified 01/17/24 16:35
denies
celecoxib [From Celebrex] Allergy started to Verified 01/17/24 16:35
break out
with sores
doxycycline Allergy Unknown Verified 01/17/24 16:35
erythromycin base Allergy CHEST PAIN Verified 01/17/24 16:35
furosemide [From Lasix] Allergy 'just Verified 01/17/24 16:35
doesn't
feel good'
- takes
bumetanide
at home
09/04/23
kanamycin Allergy Unknown Verified 01/17/24 21:25
Penicillins Allergy pt denies; Verified 01/17/24 16:35
says had
in 02/24
Home Medications
atorvastatin 40 mg tablet (Lipitor) 40 mg PO HS High cholesterol 06/22/20
ropinirole 2 mg tablet 8 mg PO TID Neurological Condition 07/25/22
apixaban 5 mg tablet (Eliquis) 5 mg PO BID Blood Clot Prevention/Tx 04/04/23
nadolol 40 mg tablet 20 mg PO HS Blood Pressure 04/04/23
omeprazole 40 mg capsule,delayed release 40 mg PO DAILY Gastrointestinal Issue 04/04/23
pregabalin 150 mg capsule 150 mg PO BID Neurological Condition 04/04/23
albuterol sulfate 90 mcg/actuation aerosol inhaler 2 puff inhalation R Q4HPRN PRN sob wheezing 01/17/24
Review of Systems
-
Constitutional: Reports Fatigue
EENT: Reports No Symptoms
Respiratory: Reports Other (shortness of breath)
Cardiac: Reports No Symptoms
Abdomen/GI: Reports No Symptoms
: Reports No Symptoms
Musculoskeletal: Reports No Symptoms
Skin: Reports No Symptoms
Neurological: Reports No Symptoms
Endocrine: Reports No Symptoms
Hematologic/Lymphatic: Reports No Symptoms
Psych: Reports No Symptoms
Physical Exam
Vital Signs
Vital Signs
Temp Pulse Resp BP Pulse Ox
97.4 F 68 17 138/75 98
01/17/24 21:25 01/17/24 22:00 01/17/24 22:00 01/17/24 22:00 01/17/24 22:00
Physical Exam
General: Well Developed, Well Nourished, No Apparent Distress, Comfortable and Conversant
HEENT: NormoCephalic, Moist mucous membranes, Atraumatic, [place] Conjunctivae, Nose Appears Normal and Ears Appear Normal
Respiratory: Clear, Non Labored Respirations and Decreased Breath Sounds
Cardiac: S1/S2 and Regular Rhythm; No Murmur, Rub or Gallop
Breast: Deferred by me
GI: Soft, Non Tender, Non Distended and Normal Bowel Sounds; No Organomegaly
Rectal: Deferred by Provider
Genito-urinary: Deferred by me
Musculoskeletal: No Clubbing, No Cyanosis and No Edema
Skin: Warm and IV/Catheter Site; No Rash
Neuro: Awake, Alert, AO x 3 and Nonfocal/grossly intact
Psych: Calm and Intact Judgment/Insight
Laboratory Results
-
01/17/24 16:33
01/17/24 18:00
Laboratory Results
Total Bilirubin 0.4 mg/dl (0.2-1.3) 01/17/24 18:00
AST 21 U/L (14-36) 01/17/24 18:00
ALT 18 U/L (0-35) 01/17/24 18:00
Alkaline Phosphatase 70 U/L (38-126) 01/17/24 18:00
Troponin I < 0.012 ng/ml 01/17/24 19:37
Data Reviewed
-
Diagnostic Radiology: Report Reviewed by me (CXR: No acute disease of the chest.)
CT Scan: Report Reviewed by me (Chest: No evidence of pulmonary embolus. No acute disease of the chest.)
Medical Tests (Nuc Med, Echo, EKG etc): Report Reviewed by me (EKG: SINUS BRADYCARDIA)
Lab Data: Labs Reviewed by me
Impression/Plan
-
IMPRESSION/PLAN:
#acute on chronic hypoxia
increased weakness, acute change in wound 1 week ago
SpO2 87% on room air
- Admit to telemetry
- DuoNeb QID
- VBG in AM
#chronic right lower leg wound
sees wound care weekly outpatient, last seen on Sunday
- continue Vanco
- Consult ID
#chronic HFpEF
ECHO (): Normal left ventricular size and systolic function. No regional wall motion
abnormalities are seen. LV ejection fraction is 65-70% by Narvaez's method of
discs. Mild concentric left ventricular hypertrophy. Normal diastolic function.
Structurally normal mitral valve. Mitral valve opens normally. Moderate mitral
regurgitation.
Trileaflet aortic valve. Aortic sclerosis without stenosis. Trace aortic
regurgitation.
- continue nadolol
#hypertension
- continue nadolol
#hyperlipidemia
- continue atorvastatin
#atrial fibrillation
- continue nadolol and Eliquis
#GERD
- continue omeprazole
#restless leg syndrome
- continue ropinirole
#neuropathy
- continue pregabalin
#CVA
#Hx PE/DVT
#spinal stenosis
Code Status: Full Code
DVT Prophylaxis: Eliquis
--- NOTE | 2024-01-17 23:10 | W.PN.UPDATE ---
Update Note
Progress Note Update
Patient seen in conjunction with HOME HEALTH CLINICAL SUPERVISOR. I agree with the findings on history and physical. I concur with the assessment and plan unless stated otherwise.
Briefly, this is an 83-year-old with past medical history significant for A-fib on anticoagulation, history of DVT PE, heart failure with preserved EF, prior wound infection status post left AKA, chronic right lower extremity infection, restless leg
who presents to the emergency department with concern for weakness and cough and hypoxia. She is also found to have worsening right lower extremity wound. Patient herself reports feeling short of breath chronically but worse over the last 2 days.
She reports nonproductive cough. She reports dyspnea on exertion. She denies palpitations. She has no diaphoresis. She denies chest pain, nausea or vomiting. She has had no fevers. She is denies having any chills. She reports that usually she
is able to clear the dyspnea with deep inspiration or cough but was unable to do so in the last 2 days so she followed up with her PMD. At the PMD office she was found to be hypoxic to 87% on room air. She also had blood pressure 100/40. Patient
was last admitted to the hospital at the end of August when she was found to have a COVID infection in addition to other issues. At the time of discharge the patient could not be weaned off of oxygen and was discharged on supplemental oxygen.
Patient tells me that while at rehab she was not requiring oxygen's and has not been on home oxygen since. There has not been any changes to her medications she has been continued on her anticoagulation as previously described.
In the emergency department she was normotensive with a blood pressure of 138/75 8. Afebrile, pulse was 68. She was satting 98% on 2 L nasal cannula without any increased work of breathing. ECG showed sinus bradycardia 57, no acute ST or T wave
changes. Troponin was negative. BNP was 800. CBC was unremarkable. BUN and creatinine were within normal limits and unchanged from prior. Electrolytes only notable for a bicarb of 36. She had a chest CT with PE study which was negative for PE.
There was no consolidation. No pulmonary edema, pleural effusion pneumothorax or other acute pulmonary findings. She had negative COVID test. Influenza was negative.
On my examination patient has dry nonproductive cough. I could not auscultate any crackles or rhonchi Rales. No wheezes. Chronic lower extremity swelling on the right noted. There is some erythema at the wound site. Drainage appears
serosanguinous.
1. Hypoxia/weakness - patient with likley acute on chronic hypoxia. Possibly 2/2 acute bronchitis. No PE. No infiltrates suggestive of pna. No total body volume overload. Elevated bicarb suggest chronic retention likely due to body habitus,
weakness and or sleep apnea. No findings to corroborate an acute intrapulmonary or cardiac process. BNP shows no significant change from prior.
- admit to telemetry observation
- supplemental oxygen to keep sat > 93%
- neb treatments around the clock
- am venous gas
- incentive spirometry
- check procalcitonin
- holding pulm abx for now
- orthostatics (supine and sitting)
- consider pulm consult
2. Wound - moderate cellulitis around chronic wound infection. No sepsis. h/o mrsa wound infection/colonization w/ sepsis.
- IV vancomycin for now
- ID consultation
3. AFIB - rate controlled.
- continue eliquis 5 bid
- continue nadolol
Rest of plan as per HOME HEALTH CLINICAL SUPERVISOR note
DVT PPX - on apixaban
Full Code
[2024-01-17 23:37] LABS: Procalcitonin < 0.05 ng/ml (0.0-0.25)
[2024-01-18] VITALS (9 sets, daily range): BP systolic 101–178; BP diastolic 46–110; BMI 40.5; BMI 32.1
--- NOTE | 2024-01-18 03:24 | PTCARENOTE ---
Pt arrived onto floor @0323. Pt AAOx3 and a bleach boiler puller to the bed. Pt with no complaints of pain or SOB at this time. Pt oriented to room and call schmid; will continue to monitor
[2024-01-18 03:58] LABS: Urine Albumin Trace (Neg - Trace); Urine Bilirubin Negative (Negative); Urine Character Slightly Cloudy (Clear); Urine Color Yellow; Urine Glucose Negative (Negative); Urine Ketone Negative (Negative); Urine Leukocyte 1+ (Negative); Urine Nitrite Positive (Negative); Urine Occult Blood 4+ (Negative); Urine Urobilinogen Negative (Neg - 1+)
[2024-01-18 04:49] LABS: Urine Amorphous Seen; Urine Bacteria Many (Negative); Urine Mucus Many; Urine Squamous Cell >30 /LPF (Few)
[2024-01-18 04:51] LABS: Urine White Cell >100 /HPF (0-5)
[2024-01-18 07:39] LABS: Venous Blood Gas B.E. 5.8 mmol/L (-4 to +4); Venous Blood Gas HCO3 34.4 mmol/L (22-27); Venous Blood Gas O2 Sat % 97.3 %; Venous Blood Gas pCO2 70 mmHg (35-48); Venous Blood Gas pO2 78 mmHg (30-50)
[2024-01-18 07:54] LABS: Hematocrit 39.2 % (37.0-47.0); Hemoglobin 12.3 g/dL (12.0-16.0); Mean Corp Hgb Conc. 31.4 g/dL (33.0-37.0); Mean Corpuscular Hgb 28.7 pg (27.0-31.0); Mean Corpuscular Volume 91.6 fL (81.0-99.0); Mean Platelet Volume 9.5 fL (7.4-10.4); Platelet Count 183 10^3/uL (130-400); Red Blood Cell Count 4.28 10^6/uL (4.20-5.40); Red Cell Dist. Width 15.8 % (11.5-14.5); White Blood Cell Count 7.4 10^3/uL (4.8-10.8)
[2024-01-18 07:57] LABS: Blood Urea Nitrogen 9 mg/dl (7-17); Carbon Dioxide 37 mmol/L (22-30); Chloride 100 mmol/L (98-107); Estimated Creatinine Clearance 79 ml/min; Glucose 105 mg/dl (70-99); Potassium 4.1 mmol/L (3.5-5.1); Sodium 139 mmol/L (135-145); eGFR > 60.00
[2024-01-18] MEDS: DUONEB 3 ML INH ×4 (08:08→20:19)
--- NOTE | 2024-01-18 08:09 | PHA.VAN.IN ---
Assessment
- Assessment
Renal Function: Appears similar to baseline
Concomitant Antimicrobials: none
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
- Previous Dosing Experience
Previous Regimen: 750 mg q12h
Date of Regimen: August 2023
Provided AUC of: no levels were drawn on this dose
Patient's SCR is: Similar to previous dosing experience
Patient's weight is: Elevated compared to previous dosing experience (86kg vs 90 kg)
Of note, pts height was recorded as 5 ft 0 in in August 2023; this admission Jan 2024 pts height recorded as 5 ft 6 in
AUC Dosing Plan
- Dosing Variables
Dosing Weight (kg): 90
Dosing CrCl (ml/min): 79
Vd coefficient (L/kg): 0.6
- Empiric Dosing
Initial / Loading Dose: pt recd 2000 mg at ~ 2200 01/17/24
Maintenance Regimen: 750 mg q12h to start this AM
Estimated AUC (mcg*h/mL): 411
Estimated Peak (mcg*h/mL): 24.4
Estimated Trough (mcg/ml): 11.3
Estimated Half Life (H): 9.9
- Monitoring
No levels ordered at this time: consider levels when pt reaches steady state
Pharmacokinetics Vancomycin I
- -
Patient Age: 83
Patient Sex: Female
Vancomycin Day #: 1
Indication: Skin And Soft Tissue
Requesting Provider: Micheline Perdomo
Pertinent Antimicrobial Allergies:
aminoglycosides, azithromycin, doxycycline, erythromycin, kanamycin, penicillins
Height / Weight:
Height 5 ft 6 in
Actual Weight 90.293 kg
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
- Vital Signs / Lab Results
Temp Pulse Resp BP Pulse Ox
97.9 F 71 16 105/76 97
01/18/24 03:38 01/18/24 03:38 01/18/24 03:38 01/18/24 03:38 01/18/24 03:38
Lab Results - Hematology
01/17/24 01/18/24
16:33 07:30
WBC 7.8 7.4
Lab Results - Chemistry
01/17/24 01/17/24 01/17/24
16:33 17:18 18:00
BUN Cancelled Cancelled 14
Creatinine Cancelled Cancelled 0.5 L
Estimated Creat Clear Cancelled Cancelled 72
Albumin Cancelled Cancelled 3.0 L
01/18/24
07:30
BUN 9
Creatinine 0.4 L
Estimated Creat Clear 79
Albumin
Lab Results - Urine
01/18/24
03:31
Urine Nitrite (Reflex) Positive A
Leukocyte Esterase Rfl 1+ A
Urine WBC (Reflex) >100 A
Ur Squamous Epith Cells >30
Urine Bacteria (Reflex) Many A
Microbiology Results
01/17/24 17:18 Influenza Types A & B (DIANE) - Final
Nasal Swab Negative for Influenza A & B, NAAT
Negative results must be combined with clinical observations
and patient history.
Nucleic Acid Amplification test (NAAT)performed on the
[employer] platform.
[2024-01-18] MEDS: LYRICA 150 MG PO ×2 (08:50→20:10)
[2024-01-18] MEDS: PROTONIX 40 MG PO (08:51)
[2024-01-18] MEDS: REQUIP 8 MG PO ×2 (08:51→17:18)
[2024-01-18] MEDS: VANCOCIN 150 IV (08:51)
[2024-01-18] MEDS: ELIQUIS 5 MG PO ×2 (08:51→20:10)
--- NOTE | 2024-01-18 08:54 | VNURNOTE ---
Chart reviewed. Patient is current with [facility] nursing. Will continue to follow hospital course and DC plans.
[2024-01-18] MEDS: TYLENOL 650 MG PO (11:04)
--- NOTE | 2024-01-18 11:53 | WOUNDNOTE ---
[facility] RN note: Patient admitted with right lower extremity chronic wound and cellulitis
See H&P for complete history.
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
Wound Location and type/assessment: Patient admitted with chronic venous wound to right LE, now with cellulitis. The wound covers the circumference of the lower leg. + audible pulse. The lateral aspect of the wound has some loose fibrin. The tissue
is red and smooth. Patient reports increased drainage over the past few days. She follows at [facility] weekly and has VN for wound care. She has a 24 hour caregiver who also provides wound care. She describes and demonstrates poor
mobility. States good appetite. Heels and sacrum intact. Hospitalist and RNShannen at bedside during assessment.
Pressure redistribution devices in place: Static air overlay applied to bed. Right heel off-loaded on pillow. Patient positioned to right semi-side lying position. Turning schedule added to care plan.
Plan: Cultures obtained as ordered. Local wound care provided as ordered. Will order wound care BID due to drainage. FRENCH wrap applied to right LE as ordered. Will confirm orders with hospitalist and update nurse.
Updated care plan and will follow as needed.
Note to case management of equipment requested for discharge: Will need air mattress if she goes to SNF.
--- NOTE | 2024-01-18 14:38 | WOUNDNOTE ---
LEFT MEDIAL LEG
--- NOTE | 2024-01-18 14:39 | WOUNDNOTE ---
RIGHT LATERAL LEG
--- NOTE | 2024-01-18 14:40 | WOUNDNOTE ---
RIGHT MEDIAL LEG
--- NOTE | 2024-01-18 14:40 | WOUNDNOTE ---
RIGHT ANTERIOR LEG
--- NOTE | 2024-01-18 15:33 | W.PN.HOSP.TC ---
Today's Communication/Plan
-
Pending infectious disease consult
Assessment / Plan
Assessment / Plan
Impression.
83 years old female admitted with hypoxic/hypercapnic respiratory failure and worsening right lower extremity wound.
Assessment/plan.
Acute hypoxic/hypercapnic respiratory failure.
Patient presented to the hospital with hypoxia.
CTA chest shows no PE.
VBG done today morning shows evidence of hypercapnia.
No evidence of pneumonia on CT chest or chest x-ray.
Continue to wean oxygen.
Possible obstructive sleep apnea component.
Continue DuoNeb
Worsening of right lower extremity wound/cellulitis.
Appreciate wound care input.
Continue vancomycin.
Pending infectious disease consult.
Chronic diastolic CHF
ECHO (): Normal left ventricular size and systolic function. No regional wall motion
abnormalities are seen. LV ejection fraction is 65-70% by Narvaez's method of
discs. Mild concentric left ventricular hypertrophy. Normal diastolic function.
Structurally normal mitral valve. Mitral valve opens normally. Moderate mitral
regurgitation.
Trileaflet aortic valve. Aortic sclerosis without stenosis. Trace aortic
regurgitation.
- continue nadolol
History of hypertension
Continue nadolol
History of Hyperlipidemia
- continue atorvastatin
Paroxysmal A-fib
- continue nadolol and Eliquis
History of GERD
- continue omeprazole
Restless leg syndrome
- continue ropinirole
History of neuropathy
- continue pregabalin
#CVA
#Hx PE/DVT
#spinal stenosis
CODE STATUS: Full code
DVT prophylaxis: Eliquis
Diet: Regular diet
Anticipated Discharge: > 48 hours
Subjective/Interval History
-
Date of Service: January 18, 2024
Patient seen and examined at bedside.
Wound care was provided during my interview with the patient.
Patient came yesterday with worsening right leg pain which started 1 week ago.
Patient denies chest pain or shortness of breath.
Infectious disease consult pending.
Currently on IV antibiotic.
Objective Data
-
Labs:
Laboratory Results
01/18/24
07:30
WBC 7.4
Hgb 12.3
Hct 39.2
Plt Count 183
Sodium 139
Potassium 4.1
Chloride 100
Carbon Dioxide 37 H
BUN 9
Creatinine 0.4 L
Glucose 105 H
Calcium 8.0 L
Vital Signs:
Vital Signs
Temp Pulse Resp BP Pulse Ox
98.0 F 81 18 108/53 88
01/18/24 11:00 01/18/24 11:00 01/18/24 11:00 01/18/24 11:00 01/18/24 11:40
I&O
01/17/24 01/18/24 01/19/24
06:59 06:59 06:59
Intake Total 240 / 240
Balance 240 / 240
Physical Exam
-
General: Well Developed, Well Nourished, No Apparent Distress and Comfortable
HEENT: Normocephalic, Atraumatic, Moist Mucous Membranes, No Ptosis, PERRLA and Nose Appears Normal
Respiratory: Clear to Auscultation, Rales, Rhonchi and Non Labored Respirations
Cardiac: Regular Rhythm and S1/S2
Breast: Deferred by me
GI: Soft, Nontender, Nondistended and Normal Bowel Sounds
Genito-urinary: No Costovertebral Tender
Musculoskeletal: Edema, Right Lower Extrem (Right lower extremity wound) and Other (Left AKA)
Skin: Warm
Neuro: Awake, Alert, Oriented, AO x 3 and No Motor Deficits
Psych: Calm
--- NOTE | 2024-01-18 16:09 | CON.ID ---
Consultation
-
Date/Time Consultation Requested: 01/18/2024 0306
Date/Time Consultation Performed: 01/18/2024 1600
Requesting Provider: Leanne
Performing Provider: Rylee
Reason for Consultation: Right lower extremity wound
Chief Complaint / Past History
History of Present Illness
Abi Thompson is an 83-year-old female being evaluated at the request of Connie Perdomo regarding her right lower extremity infection. History is obtained from chart review, along with patient interview.
The patient is known to the Infectious Diseases service, having been seen on prior admissions for a chronic right lower extremity wound. She notes that that she has had the wound for approximately 7 years, and has been in and out of wound care
centers. She was most recently seen by the Infectious Diseases service in August 2023.
She notes that she follows with the wound care center at [facility] currently, and over the past week the area appears to be worsening. She denies any fevers or chills. She presented to the ER here at [facility] yesterday for
shortness of breath and weakness which has been getting worse over the past 2 days.
The right lower extremity wound is noted to have discomfort, but not severe. She denies any fevers or chills.
Past History
Additional Past Medical History:
Hx CVA/TIA
HTN
DVT/PE
Afib
HFpEF
hypothyroidism
partial thyroidectomy
Right LE chronic venous stasis wounds
L TKR
R shoulder replacement
endometriosis s/p hysterectomy, colon resection
L AKA
cervical and lumbar fusion
Restless leg syndrome
Allergy History:
adhesive [Adhesive] Allergy (Verified 01/17/24 16:35)
Itching/REDNESS
Aminoglycosides Allergy (Verified 01/17/24 16:35)
Pharmacy to Review
azithromycin [Azithromycin] Allergy (Verified 01/17/24 16:35)
patient denies
celecoxib [From Celebrex] Allergy (Verified 01/17/24 16:35)
started to break out with sores
doxycycline Allergy (Verified 01/17/24 16:35)
Unknown
erythromycin base Allergy (Verified 01/17/24 16:35)
CHEST PAIN
furosemide [From Lasix] Allergy (Verified 01/17/24 16:35)
'just doesn't feel good' - takes bumetanide at home 09/04/23
kanamycin Allergy (Verified 01/17/24 21:25)
Unknown
Penicillins Allergy (Verified 01/17/24 16:35)
pt denies; says had in 02/24
Medications Reviewed: Yes
Current Antibiotics:
Vancomycin
Social History
Tobacco: Non-Smoker
Alcohol: None
Drug: None
Personal:
Family History
Family History: Not Pertinent
Review of Systems
Vital Signs
Temp Pulse Resp BP Pulse Ox
98.0 F 74 16 108/53 94
01/18/24 11:00 01/18/24 15:48 01/18/24 15:48 01/18/24 11:00 01/18/24 15:48
Physical Exam
Physical Exam
Constitutional: Comfortable, Chronically Ill, Non-toxic and Obese
Eyes: Sclera Anicteric
Cardiovascular: Regular Rate and S1/S2; Negative S3/S4
Pulmonary: Clear; Negative Wheezes or Rales
Gastrointestinal: Soft, Non Tender, Non Distended and Normal Bowel Sounds
Wound: Right lower extremity nearly circumferential venous stasis ulceration is noted. Areas of dark discoloration. Moderate degree of malodor.
Lab / Diagnostic Study Results
01/18/24 07:30
01/18/24 07:30
Abs Immat Gran (auto) 0.0 10^3/uL (0-0.05) 01/17/24 16:33
Absolute Neuts (auto) 5.1 10^3/uL (1.4-6.5) 01/17/24 16:33
Absolute Lymphs (auto) 1.6 10^3/uL (1.2-3.4) 01/17/24 16:33
Absolute Monos (auto) 0.7 10^3/uL (0.1-0.6) H 01/17/24 16:33
Absolute Basos (auto) 0.0 10^3/uL (0-0.2) 01/17/24 16:33
Immature Gran % 0.3 % (0-0.5) 01/17/24 16:33
Neutrophils % 65.8 % (42.2-75.2) 01/17/24 16:33
Lymphocytes % 21.0 % (20.5-51.1) 01/17/24 16:33
Monocytes % 8.3 % (1.7-9.3) 01/17/24 16:33
Eosinophils % 4.2 % (0-6) 01/17/24 16:33
Basophils % 0.4 % (0-2) 01/17/24 16:33
Procalcitonin < 0.05 ng/ml (0.0-0.25) 01/17/24 22:52
Ur Squamous Epith Cells >30 /LPF (Few) 01/18/24 03:31
Microbiology Results
Micro:
01/18/24 11:44 Wound Culture - Pending
Leg - Right Gram Stain - Preliminary
01/17/24 19:37 Wound Culture - Preliminary
Leg - Right Pseudomonas species
Gram Stain - Preliminary
01/18/24 03:31 Urine Culture - Pending
Urine
01/18/24 03:47 MRSA Screen - Pending
Nose
01/17/24 17:18 Influenza Types A & B (DIANE) - Final
Nasal Swab Negative for Influenza A & B, NAAT
Negative results must be combined with clinical observations
and patient history.
Nucleic Acid Amplification test (NAAT)performed on the
[employer] platform.
Assessment / Plan
Right lower extremity venous stasis ulceration (severe)
Chronic right lower extremity venous stasis with tissue texture changes
Hx CVA/TIA
HTN
DVT/PE
Afib
HFpEF
hypothyroidism
Restless leg syndrome
Recommendations:
Discontinue further vancomycin.
Begin cefepime 2 g IV every 12 hours.
Begin topical Dakin's to decrease overall superficial bioburden.
Continue with lower extremity elevation and compressive modalities.
--- NOTE | 2024-01-18 16:27 | CM ---
qual field manager reviewed patient's chart and met with patient and IMM provided to patient at 4pm. Patient lives with spouse in a multilevel home, patient has ramp to enter home, patient with Left AKA and uses a motorized w/c with ambulation, patient is
independent with transfers, plan is to home when stable.
PCP: Dr. Stef Flores
Pharmacy: [facility] in [place].
[2024-01-18] MEDS: STERILE WATER FOR INJECTION 10 ML IV (17:23)
[2024-01-18] MEDS: MAXIPIME 2000 MG IV (17:23)
[2024-01-18] MEDS: DAKIN'S SOLUTION 0.125% 1/4 STRENGTH TOPICAL (20:09)
[2024-01-18] MEDS: CORGARD 20 MG PO (21:54)
[2024-01-18] MEDS: LIPITOR 40 MG PO (21:54)
[2024-01-19] MEDS: REQUIP 8 MG PO ×3 (01:11→16:36)
[2024-01-19 02:54] VITALS: BP 113/51
[2024-01-19] MEDS: MAXIPIME 2000 MG IV ×2 (04:51→16:37)
[2024-01-19] MEDS: STERILE WATER FOR INJECTION 10 ML IV ×2 (04:51→16:36)
[2024-01-19] MEDS: TYLENOL 650 MG PO (04:52)
[2024-01-19] MEDS: DAKIN'S SOLUTION 0.125% 1/4 STRENGTH 15 ML TOPICAL (04:53)
[2024-01-19] MEDS: DESENEX/MITRAZOL/ZEASORB 1 APPLIC TOPICAL (06:28)
[2024-01-19 06:34] VITALS: BP 135/89
[2024-01-19 06:52] LABS: Hematocrit 37.2 % (37.0-47.0); Hemoglobin 11.3 g/dL (12.0-16.0); Mean Corp Hgb Conc. 30.4 g/dL (33.0-37.0); Mean Corpuscular Hgb 27.6 pg (27.0-31.0); Mean Corpuscular Volume 90.7 fL (81.0-99.0); Mean Platelet Volume 9.7 fL (7.4-10.4); Platelet Count 189 10^3/uL (130-400); Red Cell Dist. Width 15.5 % (11.5-14.5); White Blood Cell Count 7.1 10^3/uL (4.8-10.8)
[2024-01-19 07:26] LABS: Blood Urea Nitrogen 9 mg/dl (7-17); Calcium 8.2 mg/dl (8.4-10.2); Carbon Dioxide 38 mmol/L (22-30); Chloride 96 mmol/L (98-107); Estimated Creatinine Clearance 79 ml/min; Glucose 115 mg/dl (70-99); Potassium 3.9 mmol/L (3.5-5.1); Sodium 140 mmol/L (135-145); eGFR > 60.00
[2024-01-19] MEDS: DUONEB 3 ML INH ×4 (07:30→20:24)
[2024-01-19] MEDS: ELIQUIS 5 MG PO ×2 (07:42→20:25)
[2024-01-19] MEDS: LYRICA 150 MG PO ×2 (07:42→20:25)
[2024-01-19] MEDS: PROTONIX 40 MG PO (07:42)
[2024-01-19 11:00] VITALS: BP 125/76
--- NOTE | 2024-01-19 12:07 | W.PN.ID1 ---
Date of Service
Date of Service: January 19, 2024
Today's Communication
Continue abx.
Assessment / Plan
Right lower extremity venous stasis ulceration (severe)
Chronic right lower extremity venous stasis with tissue texture changes
Hx CVA/TIA
HTN
DVT/PE
Afib
HFpEF
hypothyroidism
Restless leg syndrome
Recommendations:
Continue cefepime 2 g IV every 12 hours (d#2)
Continue topical Dakin's to decrease overall superficial bacterial bioburden.
Continue with lower extremity elevation and compressive modalities.
����������������������������������������������������������
Chief Complaint
-: Cellulitis
Subjective / Review of Systems
Review of Systems: No Fever
Vital Signs / Physical Exam
Vital Signs
Vital Signs
Temp Pulse Resp BP Pulse Ox
97.6 F 34 16 135/89 93
01/19/24 06:34 01/19/24 11:44 01/19/24 11:44 01/19/24 06:34 01/19/24 11:44
Physical Exam
Constitutional: No Acute Distress, Comfortable and Chronically Ill
Cardiovascular: Regular Rate and S1/S2
Pulmonary: Non Labored
Gastrointestinal: Non Distended
Extremities: Edema (RLE)
Wound: Other (RLE venous stasis wounds dressed)
Psychological: Calm
Objective Data
Lab Data
Lab Results
01/19/24 05:57
01/19/24 05:57
Estimated Creat Clear 79 ml/min 01/19/24 05:57
Total Bilirubin 0.4 mg/dl (0.2-1.3) 01/17/24 18:00
AST 21 U/L (14-36) 01/17/24 18:00
ALT 18 U/L (0-35) 01/17/24 18:00
Alkaline Phosphatase 70 U/L (38-126) 01/17/24 18:00
Most recent labs reviewed.
Micro Results:
01/18/24 11:44 Wound Culture - Preliminary
Leg - Right Gram Stain - Preliminary
01/18/24 03:31 Urine Culture - Preliminary
Urine Escherichia coli
01/17/24 19:37 Wound Culture - Preliminary
Leg - Right Pseudomonas species
Enterococcus species
Gram Stain - Preliminary
01/18/24 03:47 MRSA Screen - Final
Nose No Methicillin Resistant Staphylococcus aureus isolated.
01/17/24 17:18 Influenza Types A & B (DIANE) - Final
Nasal Swab Negative for Influenza A & B, NAAT
Negative results must be combined with clinical observations
and patient history.
Nucleic Acid Amplification test (NAAT)performed on the
[employer] platform.
--- NOTE | 2024-01-19 13:12 | W.PN.HOSP.TC ---
Today's Communication/Plan
-
Wean o2 as tolerated
IV abx
Assessment / Plan
Assessment / Plan
Impression.
83 years old female admitted with hypoxic/hypercapnic respiratory failure and worsening right lower extremity wound.
Assessment/plan.
#Acute hypoxic/hypercapnic respiratory failure.
Patient presented to the hospital with hypoxia.
CTA chest shows no PE.
No evidence of pneumonia on CT chest or chest x-ray.
Continue to wean oxygen.
Possible obstructive sleep apnea component.
Continue DuoNeb
Wean oxygen as tolerated
#Right lower extremity venous stasis ulceration Severe-chronic
Appreciate wound care input.
s/p vancomycin.
on Cefepime now
wound culture -with enterococcus/pseudomonas
#E.coli
-on cefepime already.
History of hypertension
Continue nadolol
History of Hyperlipidemia
- continue atorvastatin
Paroxysmal A-fib
- continue nadolol and Eliquis
History of GERD
- continue omeprazole
Restless leg syndrome
- continue ropinirole
History of neuropathy
- continue pregabalin
#CVA
#Hx PE/DVT
#spinal stenosis
CODE STATUS: Full code
DVT prophylaxis: Eliquis
Anticipated Discharge: 24 - 48 hours
Subjective/Interval History
-
Date of Service: January 19, 2024
states of improvement in the leg pain
Objective Data
-
Labs:
Laboratory Results
01/19/24
05:57
WBC 7.1
Hgb 11.3 L
Hct 37.2
Plt Count 189
Sodium 140
Potassium 3.9
Chloride 96 L
Carbon Dioxide 38 H
BUN 9
Creatinine 0.5 L
Glucose 115 H
Calcium 8.2 L
Vital Signs:
Vital Signs
Temp Pulse Resp BP Pulse Ox
97.6 F 34 16 135/89 93
01/19/24 06:34 01/19/24 11:44 01/19/24 11:44 01/19/24 06:34 01/19/24 11:44
I&O
01/18/24 01/19/24 01/20/24
06:59 06:59 06:59
Intake Total 240 / 240 240 / 240
Output Total 750 / 750
Balance 240 / 240 -510 / -510
Physical Exam
-
General: Well Developed, Well Nourished, No Apparent Distress and Comfortable
HEENT: Normocephalic, Atraumatic, Moist Mucous Membranes, No Ptosis, PERRLA and Nose Appears Normal
Respiratory: Clear to Auscultation, Rales, Rhonchi and Non Labored Respirations
Cardiac: Regular Rhythm and S1/S2
Breast: Deferred by me
GI: Soft, Nontender, Nondistended and Normal Bowel Sounds
Genito-urinary: No Costovertebral Tender
Musculoskeletal: Edema, Right Lower Extrem (Right lower extremity wound) and Other (Left AKA)
Skin: Warm
Neuro: Awake, Alert, Oriented, AO x 3 and No Motor Deficits
Psych: Calm
[2024-01-19 15:00] VITALS: BP 131/74
[2024-01-19 19:30] VITALS: BP 98/68
[2024-01-19] MEDS: LIPITOR 40 MG PO (20:25)
[2024-01-19] MEDS: CORGARD 20 MG PO (20:25)
[2024-01-19] MEDS: DAKIN'S SOLUTION 0.125% 1/4 STRENGTH TOPICAL (20:48)
[2024-01-19 23:30] VITALS: BP 123/59
[2024-01-20] VITALS (7 sets, daily range): BP systolic 117–152; BP diastolic 56–75; PULSE 76
[2024-01-20] MEDS: REQUIP 8 MG PO ×4 (01:35→20:51)
[2024-01-20] MEDS: MAXIPIME 2000 MG IV ×2 (05:39→19:42)
[2024-01-20] MEDS: STERILE WATER FOR INJECTION 10 ML IV ×2 (05:39→19:42)
[2024-01-20] MEDS: DUONEB 3 ML INH ×4 (07:57→20:07)
[2024-01-20 08:07] LABS: Hematocrit 39.9 % (37.0-47.0); Hemoglobin 12.3 g/dL (12.0-16.0); Mean Corp Hgb Conc. 30.8 g/dL (33.0-37.0); Mean Corpuscular Hgb 28.1 pg (27.0-31.0); Mean Corpuscular Volume 91.1 fL (81.0-99.0); Mean Platelet Volume 9.4 fL (7.4-10.4); Platelet Count 204 10^3/uL (130-400); Red Blood Cell Count 4.38 10^6/uL (4.20-5.40); Red Cell Dist. Width 15.1 % (11.5-14.5); White Blood Cell Count 6.7 10^3/uL (4.8-10.8)
[2024-01-20 08:08] LABS: Blood Urea Nitrogen 8 mg/dl (7-17); Calcium 8.4 mg/dl (8.4-10.2); Chloride 93 mmol/L (98-107); Estimated Creatinine Clearance 79 ml/min; Glucose 122 mg/dl (70-99); Potassium 3.9 mmol/L (3.5-5.1); Sodium 137 mmol/L (135-145); eGFR > 60.00
[2024-01-20 08:23] LABS: Carbon Dioxide 36 mmol/L (22-30)
[2024-01-20] MEDS: ELIQUIS 5 MG PO ×2 (09:24→20:50)
[2024-01-20] MEDS: LYRICA 150 MG PO ×2 (09:24→20:50)
[2024-01-20] MEDS: PROTONIX 40 MG PO (09:25)
[2024-01-20] MEDS: DAKIN'S SOLUTION 0.125% 1/4 STRENGTH 473 ML TOPICAL (09:26)
--- NOTE | 2024-01-20 11:09 | W.PN.HOSP.TC ---
Addendum entered and electronically signed by Alin Huddleston MD 01/20/24 14:49:
Patient complaint shortness of breath and started on IV steroids. However patient stated of not feeling appropriate and stated of feeling 'goofy'. Can hold off on IV steroids and continue with nebulizer.
Original Note:
Today's Communication/Plan
-
Bronchodilators
wean o2
IV cefepime
PT eval
Assessment / Plan
Assessment / Plan
Impression.
83 years old female admitted with hypoxic/hypercapnic respiratory failure and worsening right lower extremity wound.
Assessment/plan.
#Acute hypoxic/hypercapnic respiratory failure.
Patient presented to the hospital with hypoxia.
CTA chest shows no PE.
No evidence of pneumonia on CT chest or chest x-ray.
Continue to wean oxygen.
Possible obstructive sleep apnea component.
Continue DuoNeb standing/prn
exposure to tobacco. Spouse used to smoke heavy.
likely bronchitis. If no improvement started steroids.
Pulmicort added for now.
Wean oxygen as tolerated
#Right lower extremity venous stasis ulceration Severe-chronic
Appreciate wound care input.
s/p vancomycin.
on Cefepime now
wound culture -with enterococcus/pseudomonas
#E.coli
-on cefepime already.
History of hypertension
Continue nadolol
History of Hyperlipidemia
- continue atorvastatin
Paroxysmal A-fib
- continue nadolol and Eliquis
History of GERD
- continue omeprazole
Restless leg syndrome
- continue ropinirole
History of neuropathy
- continue pregabalin
#CVA
#Hx PE/DVT
#spinal stenosis
CODE STATUS: Full code
DVT prophylaxis: Eliquis
PT eval
d/w with daughter at bedside in details.
Anticipated Discharge: 24 - 48 hours
Subjective/Interval History
-
Date of Service: January 20, 2024
states of cough and wheezing
remains on oxygen
states feeling weak
Objective Data
-
Labs:
Laboratory Results
01/20/24
06:58
WBC 6.7
Hgb 12.3
Hct 39.9
Plt Count 204
Sodium 137
Potassium 3.9
Chloride 93 L
Carbon Dioxide 36 H
BUN 8
Creatinine 0.5 L
Glucose 122 H
Calcium 8.4
Vital Signs:
Vital Signs
Temp Pulse Resp BP Pulse Ox
97.4 F 87 19 122/62 88
01/20/24 07:25 01/20/24 08:05 01/20/24 08:05 01/20/24 07:25 01/20/24 08:05
I&O
01/19/24 01/20/24 01/21/24
06:59 06:59 06:59
Intake Total 240 / 240
Output Total 750 / 750
Balance -510 / -510
Physical Exam
-
General: Well Developed, Well Nourished, No Apparent Distress and Comfortable
HEENT: Normocephalic, Atraumatic, Moist Mucous Membranes, No Ptosis, Nose Appears Normal and Oxygen
Respiratory: Wheezes (mild exp) and Non Labored Respirations
Cardiac: Regular Rhythm and S1/S2
Breast: Deferred by me
GI: Soft, Nontender, Nondistended and Normal Bowel Sounds
Genito-urinary: No Costovertebral Tender
Musculoskeletal: Edema, Right Lower Extrem (Right lower extremity wound) and Other (Left AKA)
Skin: Warm
Neuro: Awake, Alert, Oriented, AO x 3 and No Motor Deficits
Psych: Calm
Data Reviewed
-
Total Time Spent with Patient (in minutes): 55
[2024-01-20] MEDS: PULMICORT 0.25 MG INH ×2 (12:01→20:07)
[2024-01-20] MEDS: DECADRON 6 MG IV (12:22)
--- NOTE | 2024-01-20 15:17 | W.PN.ID1 ---
Date of Service
Date of Service: January 20, 2024
Today's Communication
Continue antibiotics.
Assessment / Plan
Right lower extremity venous stasis ulceration (severe)
Chronic right lower extremity venous stasis with tissue texture changes
Hx CVA/TIA
HTN
DVT/PE
Afib
HFpEF
hypothyroidism
Restless leg syndrome
Recommendations:
Continue cefepime 2 g IV every 12 hours (d#2)
Continue topical Dakin's to decrease overall superficial bacterial bioburden.
Continue with lower extremity elevation and compressive modalities (FRENCH)
����������������������������������������������������������
Chief Complaint
-: Cellulitis
Subjective / Review of Systems
Review of Systems: No Fever and No Chills
Vital Signs / Physical Exam
Vital Signs
Vital Signs
Temp Pulse Resp BP Pulse Ox
98.2 F 59 18 117/56 96
01/20/24 13:15 01/20/24 13:15 01/20/24 13:15 01/20/24 13:15 01/20/24 13:15
Physical Exam
Constitutional: No Acute Distress, Comfortable and Chronically Ill
Cardiovascular: Regular Rate and S1/S2
Pulmonary: Non Labored
Gastrointestinal: Non Distended
Extremities: Edema (RLE) and Venous Insufficiency
Wound: Other (RLE venous stasis wounds dressed)
Psychological: Calm
Objective Data
Lab Data
Lab Results
01/20/24 06:58
01/20/24 06:58
Estimated Creat Clear 79 ml/min 01/20/24 06:58
Total Bilirubin 0.4 mg/dl (0.2-1.3) 01/17/24 18:00
AST 21 U/L (14-36) 01/17/24 18:00
ALT 18 U/L (0-35) 01/17/24 18:00
Alkaline Phosphatase 70 U/L (38-126) 01/17/24 18:00
Most recent labs reviewed.
Micro Results:
01/18/24 03:31 Urine Culture - Preliminary
Urine Escherichia coli
01/18/24 11:44 Wound Culture - Final
Leg - Right Pseudomonas aeruginosa
Enterococcus faecalis
Gram Stain - Final
01/17/24 19:37 Wound Culture - Final
Leg - Right Pseudomonas aeruginosa
Enterococcus faecalis
Gram Stain - Final
01/18/24 03:47 MRSA Screen - Final
Nose No Methicillin Resistant Staphylococcus aureus isolated.
01/17/24 17:18 Influenza Types A & B (DIANE) - Final
Nasal Swab Negative for Influenza A & B, NAAT
Negative results must be combined with clinical observations
and patient history.
Nucleic Acid Amplification test (NAAT)performed on the
[employer] platform.
[2024-01-20] MEDS: DAKIN'S SOLUTION 0.125% 1/4 STRENGTH 1 ML TOPICAL (20:50)
[2024-01-20] MEDS: LIPITOR 40 MG PO (20:50)
[2024-01-21 03:21] VITALS: BP 124/59
[2024-01-21] MEDS: STERILE WATER FOR INJECTION 10 ML IV ×2 (05:22→17:22)
[2024-01-21] MEDS: MAXIPIME 2000 MG IV ×2 (05:22→17:20)
[2024-01-21] MEDS: DUONEB 3 ML INH ×4 (07:37→19:54)
[2024-01-21] MEDS: PULMICORT 0.25 MG INH ×2 (07:37→20:08)
[2024-01-21 07:45] VITALS: BP 163/68
[2024-01-21] MEDS: DAKIN'S SOLUTION 0.125% 1/4 STRENGTH 473 ML TOPICAL (08:00)
[2024-01-21] MEDS: ELIQUIS 5 MG PO ×2 (08:16→19:53)
[2024-01-21] MEDS: REQUIP 8 MG PO ×3 (08:16→21:17)
[2024-01-21] MEDS: LYRICA 150 MG PO ×2 (08:16→19:53)
[2024-01-21] MEDS: TYLENOL 650 MG PO ×2 (08:16→21:18)
[2024-01-21] MEDS: PROTONIX 40 MG PO (08:17)
--- NOTE | 2024-01-21 15:05 | CM ---
Chart reviewed and patient to return to home with spouse and [facility].
Plan; Home with [facility]
--- NOTE | 2024-01-21 16:28 | W.PN.ID1 ---
Date of Service
Date of Service: January 21, 2024
Today's Communication
Continue antibiotics.
Assessment / Plan
Right lower extremity venous stasis ulceration (severe)
Chronic right lower extremity venous stasis with tissue texture changes
Hx CVA/TIA
HTN
DVT/PE
Afib
HFpEF
hypothyroidism
Restless leg syndrome
Recommendations:
Continue cefepime 2 g IV every 12 hours (d#3)
Continue topical Dakin's to decrease overall superficial bacterial bioburden.
Continue with lower extremity elevation and compressive modalities (FRENCH)
����������������������������������������������������������
Chief Complaint
-: Cellulitis
Subjective / Review of Systems
Patient seen and examined. Reports ongoing discomfort in the right leg.
Vital Signs / Physical Exam
Vital Signs
Vital Signs
Temp Pulse Resp BP Pulse Ox
97.8 F 77 18 163/68 95
01/21/24 07:45 01/21/24 15:15 01/21/24 15:15 01/21/24 07:45 01/21/24 15:31
Physical Exam
Constitutional: No Acute Distress, Comfortable and Chronically Ill
Cardiovascular: Regular Rate and S1/S2
Pulmonary: Non Labored
Gastrointestinal: Non Distended
Extremities: Edema (RLE) and Venous Insufficiency
Wound: Other (RLE venous stasis wounds dressed. When unwrapped, marked improvement in appearance. Less odor. Minimal duskiness of the tissues at this time.)
Neurological: Awake and Alert
Psychological: Calm
Objective Data
Lab Data
Lab Results
01/20/24 06:58
01/20/24 06:58
Estimated Creat Clear 79 ml/min 01/20/24 06:58
Total Bilirubin 0.4 mg/dl (0.2-1.3) 01/17/24 18:00
AST 21 U/L (14-36) 01/17/24 18:00
ALT 18 U/L (0-35) 01/17/24 18:00
Alkaline Phosphatase 70 U/L (38-126) 01/17/24 18:00
Most recent labs reviewed.
Micro Results:
01/18/24 03:31 Urine Culture - Final
Urine Escherichia coli - ESBL
01/18/24 11:44 Wound Culture - Final
Leg - Right Pseudomonas aeruginosa
Enterococcus faecalis
Gram Stain - Final
01/17/24 19:37 Wound Culture - Final
Leg - Right Pseudomonas aeruginosa
Enterococcus faecalis
Gram Stain - Final
01/18/24 03:47 MRSA Screen - Final
Nose No Methicillin Resistant Staphylococcus aureus isolated.
01/17/24 17:18 Influenza Types A & B (DIANE) - Final
Nasal Swab Negative for Influenza A & B, NAAT
Negative results must be combined with clinical observations
and patient history.
Nucleic Acid Amplification test (NAAT)performed on the
[employer] platform.
Care Review
Plan reviewed with: Physician (Hospitalist)
[2024-01-21 17:11] VITALS: BP 109/60
--- NOTE | 2024-01-21 18:11 | W.PN.HOSP.TC ---
Today's Communication/Plan
-
Continue IV antibiotics as per ID.
Continue wound care
Assessment / Plan
Assessment / Plan
Impression.
83 years old female admitted with hypoxic/hypercapnic respiratory failure and worsening right lower extremity wound.
Assessment/plan.
#Acute hypoxic/hypercapnic respiratory failure.
Patient presented to the hospital with hypoxia.
CTA chest shows no PE.
No evidence of pneumonia on CT chest or chest x-ray.
Continue to wean oxygen.
Possible obstructive sleep apnea component.
Continue DuoNeb standing/prn
exposure to tobacco. Spouse used to smoke heavy.
likely bronchitis. If no improvement started steroids.
Pulmicort added for now.
Wean oxygen as tolerated
#Right lower extremity venous stasis ulceration Severe-chronic
Appreciate wound care input.
s/p vancomycin.
on Cefepime now
wound culture -with enterococcus/pseudomonas
Bacteriuria without evidence of UTI
Urine culture with ESBL E. coli
History of hypertension
Continue nadolol
History of Hyperlipidemia
- continue atorvastatin
Paroxysmal A-fib
- continue nadolol and Eliquis
History of GERD
- continue omeprazole
Restless leg syndrome
- continue ropinirole
History of neuropathy
- continue pregabalin
#CVA
#Hx PE/DVT
#spinal stenosis
CODE STATUS: Full code
DVT prophylaxis: Eliquis
PT eval
d/w with daughter at bedside in details.
Anticipated Discharge: 24 - 48 hours
Subjective/Interval History
-
Date of Service: January 21, 2024
Objective Data
-
Vital Signs:
Vital Signs
Temp Pulse Resp BP Pulse Ox
98.3 F 70 20 109/60 92
01/21/24 17:11 01/21/24 17:11 01/21/24 17:11 01/21/24 17:11 01/21/24 17:11
I&O
01/20/24 01/21/24 01/22/24
06:59 06:59 06:59
Intake Total 480 / 480 240 / 240
Output Total 1400 / 1400 300 / 300
Balance -920 / -920 -60 / -60
Physical Exam
-
General: Well Developed, Well Nourished, No Apparent Distress and Comfortable
HEENT: Normocephalic, Atraumatic, Moist Mucous Membranes, No Ptosis, Nose Appears Normal and Oxygen
Respiratory: Wheezes (mild exp) and Non Labored Respirations
Cardiac: Regular Rhythm and S1/S2
Breast: Deferred by me
GI: Soft, Nontender, Nondistended and Normal Bowel Sounds
Genito-urinary: No Costovertebral Tender
Musculoskeletal: Edema, Right Lower Extrem (Right lower extremity wound) and Other (Left AKA)
Skin: Warm
Neuro: Awake, Alert, Oriented, AO x 3 and No Motor Deficits
Psych: Calm
[2024-01-21] MEDS: DAKIN'S SOLUTION 0.125% 1/4 STRENGTH 1 ML TOPICAL (19:53)
[2024-01-21] MEDS: LIPITOR 40 MG PO (21:17)
[2024-01-21 23:00] VITALS: BP 120/64
[2024-01-22] MEDS: MAXIPIME 2000 MG IV ×2 (05:47→17:03)
[2024-01-22] MEDS: STERILE WATER FOR INJECTION 10 ML IV ×2 (05:47→17:03)
[2024-01-22 06:00] VITALS: BMI 31.9
[2024-01-22] MEDS: DUONEB 3 ML INH ×4 (07:09→20:09)
[2024-01-22] MEDS: PULMICORT 0.25 MG INH ×2 (07:09→20:09)
[2024-01-22 07:50] VITALS: BP 142/59
[2024-01-22] MEDS: REQUIP 8 MG PO ×3 (08:31→21:15)
[2024-01-22] MEDS: DAKIN'S SOLUTION 0.125% 1/4 STRENGTH 1 ML TOPICAL ×2 (08:31→21:14)
[2024-01-22] MEDS: ELIQUIS 5 MG PO ×2 (08:31→21:14)
[2024-01-22] MEDS: LYRICA 150 MG PO ×2 (08:31→21:14)
[2024-01-22] MEDS: PROTONIX 40 MG PO (08:31)
--- NOTE | 2024-01-22 10:16 | CM ---
Chart reviewed and patient to return to home with spouse and [facility] when stable, patient is requiring continuous oxygen at hospital between 2-3 liters, home oxygen evaluation ordered. Patient's spouse is aware of discharge planning for patient.
Plan; Home with spouse and [facility], patient may require home oxygen testing ordered.
[2024-01-22 11:09] VITALS: O2SAT 93
--- NOTE | 2024-01-22 15:10 | W.PN.ID1 ---
Date of Service
Date of Service: January 22, 2024
Today's Communication
Continue antibiotics for today.
Assessment / Plan
Right lower extremity venous stasis ulceration (severe)
Chronic right lower extremity venous stasis with tissue texture changes
Hx CVA/TIA
HTN
DVT/PE
Afib
HFpEF
hypothyroidism
Restless leg syndrome
Recommendations:
Continue cefepime 2 g IV every 12 hours (d#4), to continue for an additional day or so. Will not require antibiotics following discharge.
Continue topical Dakin's to decrease overall superficial bacterial bioburden.
Continue with lower extremity elevation and compressive modalities (JEOVANNY)
����������������������������������������������������������
Chief Complaint
-: Cellulitis
Subjective / Review of Systems
Review of Systems: No Fever and No Chills
Vital Signs / Physical Exam
Vital Signs
Vital Signs
Temp Pulse Resp BP Pulse Ox
97.4 F 88 20 142/59 93
01/22/24 07:50 01/22/24 11:36 01/22/24 11:36 01/22/24 07:50 01/22/24 11:36
Physical Exam
Constitutional: No Acute Distress, Comfortable, Chronically Ill and Non-toxic
Eyes: Sclera Anicteric
Pulmonary: Non Labored
Gastrointestinal: Non Distended
Wound: Other (Right lower extremity wound wrapped and dressed with Jeovanny wrap.)
Neurological: Awake and Alert
Psychological: Calm
Objective Data
Lab Data
Lab Results
01/20/24 06:58
01/20/24 06:58
Estimated Creat Clear 79 ml/min 01/20/24 06:58
Total Bilirubin 0.4 mg/dl (0.2-1.3) 01/17/24 18:00
AST 21 U/L (14-36) 01/17/24 18:00
ALT 18 U/L (0-35) 01/17/24 18:00
Alkaline Phosphatase 70 U/L (38-126) 01/17/24 18:00
Most recent labs reviewed.
Micro Results:
01/18/24 03:31 Urine Culture - Final
Urine Escherichia coli - ESBL
01/18/24 11:44 Wound Culture - Final
Leg - Right Pseudomonas aeruginosa
Enterococcus faecalis
Gram Stain - Final
01/17/24 19:37 Wound Culture - Final
Leg - Right Pseudomonas aeruginosa
Enterococcus faecalis
Gram Stain - Final
01/18/24 03:47 MRSA Screen - Final
Nose No Methicillin Resistant Staphylococcus aureus isolated.
01/17/24 17:18 Influenza Types A & B (DIANE) - Final
Nasal Swab Negative for Influenza A & B, NAAT
Negative results must be combined with clinical observations
and patient history.
Nucleic Acid Amplification test (NAAT)performed on the
[employer] platform.
Care Review
Plan reviewed with: Physician (Hospitalist)
[2024-01-22] MEDS: TYLENOL 650 MG PO ×2 (15:18→21:36)
--- NOTE | 2024-01-22 15:37 | W.PN.HOSP.TC ---
Today's Communication/Plan
-
Home O2 assessment
Continue antibiotics for another 24 hours
Continue wound care and sid wraps.
Discharge planning
Assessment / Plan
Assessment / Plan
Impression.
83 years old female admitted with hypoxic/hypercapnic respiratory failure and worsening right lower extremity wound.
Assessment/plan.
#Acute hypoxic/hypercapnic respiratory failure.
Patient presented to the hospital with hypoxia.
CTA chest shows no PE.
No evidence of pneumonia on CT chest or chest x-ray.
Continue to wean oxygen.
Possible obstructive sleep apnea component.
Continue DuoNeb standing/prn
exposure to tobacco. Spouse used to smoke heavy.
likely bronchitis.
Pulmicort added for now.
Wean oxygen as tolerated
Home O2 assessment
#Right lower extremity venous stasis ulceration Severe-chronic
Appreciate wound care input.
s/p vancomycin.
on Cefepime now
wound culture -with enterococcus/pseudomonas
Bacteriuria without evidence of UTI
Urine culture with ESBL E. coli
History of hypertension
Continue nadolol
History of Hyperlipidemia
- continue atorvastatin
Paroxysmal A-fib
- continue nadolol and Eliquis
History of GERD
- continue omeprazole
Restless leg syndrome
- continue ropinirole
History of neuropathy
- continue pregabalin
#CVA
#Hx PE/DVT
#spinal stenosis
CODE STATUS: Full code
DVT prophylaxis: Eliquis
PT eval
d/w with daughter at bedside in details.
Anticipated Discharge: 24 - 48 hours
Subjective/Interval History
-
Date of Service: January 22, 2024
Objective Data
-
Vital Signs:
Vital Signs
Temp Pulse Resp BP Pulse Ox
97.4 F 88 20 142/59 93
01/22/24 07:50 01/22/24 11:36 01/22/24 11:36 01/22/24 07:50 01/22/24 11:36
I&O
01/21/24 01/22/24 01/23/24
06:59 06:59 06:59
Intake Total 480 / 480 240 / 240
Output Total 1400 / 1400 600 / 600
Balance -920 / -920 -360 / -360
Physical Exam
-
General: Well Developed, Well Nourished, No Apparent Distress and Comfortable
HEENT: Normocephalic, Atraumatic, Moist Mucous Membranes, No Ptosis, Nose Appears Normal and Oxygen
Respiratory: Wheezes (mild exp) and Non Labored Respirations
Cardiac: Regular Rhythm and S1/S2
Breast: Deferred by me
GI: Soft, Nontender, Nondistended and Normal Bowel Sounds
Genito-urinary: No Costovertebral Tender
Musculoskeletal: Edema, Right Lower Extrem (Right lower extremity wound) and Other (Left AKA)
Skin: Warm
Neuro: Awake, Alert, Oriented, AO x 3 and No Motor Deficits
Psych: Calm
[2024-01-22 15:49] VITALS: BP 141/73
[2024-01-22] MEDS: LIPITOR 40 MG PO (21:15)
[2024-01-22 23:00] VITALS: BP 123/65
[2024-01-23] MEDS: MAXIPIME 2000 MG IV (05:13)
[2024-01-23] MEDS: STERILE WATER FOR INJECTION 10 ML IV (05:13)
[2024-01-23 06:00] VITALS: BMI 31.8
[2024-01-23] MEDS: DUONEB 3 ML INH ×2 (07:09→11:08)
[2024-01-23] MEDS: PULMICORT 0.25 MG INH (07:09)
[2024-01-23 07:30] VITALS: BP 121/70
[2024-01-23] MEDS: LYRICA 150 MG PO (08:49)
[2024-01-23] MEDS: ELIQUIS 5 MG PO (08:50)
[2024-01-23] MEDS: REQUIP 8 MG PO ×2 (08:50→16:07)
[2024-01-23] MEDS: PROTONIX 40 MG PO (08:50)
[2024-01-23] MEDS: TYLENOL 650 MG PO (08:50)
[2024-01-23] MEDS: DAKIN'S SOLUTION 0.125% 1/4 STRENGTH 473 ML TOPICAL (08:53)
--- NOTE | 2024-01-23 10:38 | PN.CDI ---
CDI
- -
CDI:
Physician Documentation Request
Admit Date: 01/18/24 11:53
Dear Doctor Lucho,
01/16 hospitalist update note states 'At the PMD office she was found to be hypoxic to 87% on room air.....Patient tells me that while at rehab she was not requiring oxygen's and has not been on home oxygen since.... Hypoxia/weakness. '
Hospitalist progress notes state 'Acute hypoxic/hypercapnic respiratory failure'
ER assessment 'Pulm: Normal respiratory effort, no wheezes, rales, rhonchi heard on exam. Hypoxic'
H&P exam 'Respiratory: Clear, Non Labored Respirations'
Per documented vital signs, patient has not exceeded 4 L O2.
Based on the above information and the recognized standard for respiratory failure could you please verify this diagnoses is still accurate and reflective of the patient�s condition to ensure quality of the medical record
Acute hypoxic/hypercapnic respiratory failure is a clinical diagnosis based on (please include this additional support in the medical record)
Hypoxia only
Other
Additional information for Respiratory Failure:
Recognized criteria for Respiratory Failure (Source: [facility] Dec 2012)
ABGs: (1 or more) Symptoms
1. pO2 <60 or RA SPO2 <91% on RA 1. Tachypnea, SOB, dyspnea
2. pCO2 >50 and pH <7.35 2. Use of accessory muscles
3. pO2 decrease of pCO2 increase by 3. Pallor or cyanosis
10 mmHg from baseline if known 4. Anxiety or restlessness
5. Unable to speak in full sentences
Supplemental O2 of > 40% (5LPM) Intubation is not required
Use of terms such as suspected, likely, concern for, or probable (associated with a specific diagnosis that is being evaluated, monitored, or treated as if it exists) are acceptable and can be coded in the inpatient setting, when documented at the
time of discharge.
Thank you,
Amaya Rodney RN, BSN
CDI Specialist
tiger text
Please use your independent medical judgment in providing your response.
--- NOTE | 2024-01-23 14:21 | W.DS.TRANS ---
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
-
Discharge Instructions:
Sleep Apnea Risk Intermediate
Discharge Diagnosis/Procedures RLE wound with cellulites
Diet Regular
Instructions:
Stand-Alone Forms:
Changes to Home Medications: Yes
Discharge Medications:
DC Medications w/original date entered in [facility]
atorvastatin 40 mg tablet (Lipitor) 40 mg PO HS High cholesterol 06/22/20
ropinirole 2 mg tablet 8 mg PO TID Neurological Condition 07/25/22
apixaban 5 mg tablet (Eliquis) 5 mg PO BID Blood Clot Prevention/Tx 04/04/23
nadolol 40 mg tablet 20 mg PO HS Blood Pressure 04/04/23
omeprazole 40 mg capsule,delayed release 40 mg PO DAILY Gastrointestinal Issue 04/04/23
pregabalin 150 mg capsule 150 mg PO BID Neurological Condition 04/04/23
albuterol sulfate 90 mcg/actuation aerosol inhaler 2 puff inhalation R Q4HPRN PRN sob wheezing 01/17/24
budesonide 0.25 mg/2 mL suspension for nebulization 0.25 mg (2 mL) inhalation R BID #60 mL 01/23/24
Home Medication Changes
Pulmicort added
Pending Results: No
--- NOTE | 2024-01-23 14:42 | CM ---
CM reviewed chart, patient for discharge today. CM placed call to patients , discussed discharge. will provide transportation home. IMM reviewed, agreeable to discharge. CM will update [facility] on patient discharge. CM will continue to
follow for all discharge planning needs.
Plan; home with [facility], to transport.
[2024-01-23] MEDS: DUONEB INH (15:28)
[2024-01-23 16:30] VITALS: BP 121/72
== END 2024-01-23 16:58 | disposition home health service (06) | DRG 602 ==
LOC: 4 WEST ACU 11:53
PROVIDERS: Nurse Practitioner Family; Physician Assistant; ADMITTING PHYSICIAN Internal Medicine; ATTENDING PHYSICIAN Internal Medicine; CONSULT PHYSICIAN Internal Medicine Infectious Disease; EMERGENCY PHYSICIAN Emergency Medicine; FAMILY PHYSICIAN Family Medicine
DX: L03.115 Cellulitis of right lower limb (principal); J96.01 Acute respiratory failure with hypoxia; J96.02 Acute respiratory failure with hypercapnia; I50.32 Chronic diastolic (congestive) heart failure; L97.811 Non-pressure chronic ulcer of other part of right lower leg limited to breakdown of skin; I11.0 Hypertensive heart disease with heart failure; I48.0 Paroxysmal atrial fibrillation; E78.00 Pure hypercholesterolemia, unspecified; K21.9 Gastro-esophageal reflux disease without esophagitis; G25.81 Restless legs syndrome; G62.9 Polyneuropathy, unspecified; E89.0 Postprocedural hypothyroidism; I87.2 Venous insufficiency (chronic) (peripheral); R82.71 Bacteriuria; G47.33 Obstructive sleep apnea (adult) (pediatric); B96.5 Pseudomonas (aeruginosa) (mallei) (pseudomallei) as the cause of diseases classified elsewhere; M50.90 Cervical disc disorder, unspecified, unspecified cervical region; Z88.0 Allergy status to penicillin; Z88.1 Allergy status to other antibiotic agents; Z79.899 Other long term (current) drug therapy; Z11.52 Encounter for screening for COVID-19; Z96.611 Presence of right artificial shoulder joint; Z89.612 Acquired absence of left leg above knee; Z86.73 Personal history of transient ischemic attack (TIA), and cerebral infarction without residual deficits; Z86.711 Personal history of pulmonary embolism; Z86.718 Personal history of other venous thrombosis and embolism; Z86.14 Personal history of Methicillin resistant Staphylococcus aureus infection; Z79.01 Long term (current) use of anticoagulants
CPT/HCPCS: 71046; 71275; 80048; 80053; 81003; 81015; 82805; 83880; 84145; 84443; 84484; 85025; 85027; 87070; 87077; 87086; 87186; 87205; 87502; 87811; 93005; 94640; 96361; 96365; 96366; 97163; 97530; 99285; Q9967

== ENCOUNTER → 2024-02-25 12:30 | Outpatient (REF) | payer MEDICARE, BC, SELFPAY | LOC: WOUND 12:30 | PROVIDERS: ATTENDING PHYSICIAN Surgery; FAMILY PHYSICIAN Family Medicine | DX: I87.311 Chronic venous hypertension (idiopathic) with ulcer of right lower extremity (principal); L97.212 Non-pressure chronic ulcer of right calf with fat layer exposed; I87.2 Venous insufficiency (chronic) (peripheral); I73.9 Peripheral vascular disease, unspecified; I48.0 Paroxysmal atrial fibrillation; Z89.612 Acquired absence of left leg above knee | CPT/HCPCS: 99214 ==

== ENCOUNTER → 2024-03-03 13:42 | Outpatient (REF) | payer MEDICARE, BC, SELFPAY | LOC: WOUND 13:42 | PROVIDERS: ATTENDING PHYSICIAN Surgery; FAMILY PHYSICIAN Family Medicine | DX: I87.311 Chronic venous hypertension (idiopathic) with ulcer of right lower extremity (principal); L97.212 Non-pressure chronic ulcer of right calf with fat layer exposed; I87.2 Venous insufficiency (chronic) (peripheral); I73.9 Peripheral vascular disease, unspecified; I48.0 Paroxysmal atrial fibrillation; Z89.612 Acquired absence of left leg above knee | CPT/HCPCS: 99213 ==

== ENCOUNTER → 2024-03-10 11:12 | Outpatient (REF) | payer MEDICARE, BC, SELFPAY | LOC: WOUND 11:12 | PROVIDERS: ATTENDING PHYSICIAN Surgery; FAMILY PHYSICIAN Family Medicine | DX: I87.311 Chronic venous hypertension (idiopathic) with ulcer of right lower extremity (principal); L97.212 Non-pressure chronic ulcer of right calf with fat layer exposed; I87.2 Venous insufficiency (chronic) (peripheral); I73.9 Peripheral vascular disease, unspecified; I48.0 Paroxysmal atrial fibrillation; Z89.612 Acquired absence of left leg above knee | CPT/HCPCS: 99213 ==

== ENCOUNTER 2024-03-17 23:51 | Inpatient (IN) | payer MEDICARE, BC, SELFPAY ==
[2024-03-17 14:51] VITALS: BP 120/62
--- NOTE | 2024-03-17 14:55 | ED.SKININJ ---
HPI-Injury
<Noe Curry PA-C - Last Filed: 03/17/24 14:56>
General
Chief Complaint: Skin Problem
Time Seen by Provider: 03/17/24 19:37
<Korey Morales MD - Last Filed: 03/17/24 20:38>
General
Source: patient
Exam Limitations: none
History of Present Illness-Injury
Initial Injury comments:
83-year-old female here for progressive redness and concern for infection to the right lower extremity. No fever or chills. Chronic pain but slightly worse. Seen by wound care and sent for further care.
ED Provider Triage
<Noe Curry PA-C - Last Filed: 03/17/24 14:56>
-
Patient seen by provider in Triage?: Seen in Triage
Attestation: A medical screening examination has been initiated by a qualified medical provider. Based on the assessment performed at this time, it has been determined that an emergent medical condition may exist and the patient has been informed
that further medical evaluation and possible additional diagnostic testing may be needed.
HPI: 83-year-old female presents in referral from wound care for evaluation of potential cellulitis of the right lower extremity. They note more redness swelling and pain. She is anticoagulated. Not currently on an antibiotic. She has not missed
any doses of her Eliquis
Will start workup with x-rays of the right leg and right foot to blood work and cultures as well
GENERAL: Alert , in no apparent distress
EYE: No visual abnormalities.
NECK: Trachea midline
ENT: No visible abnormalities.
LUNGS: No acute respiratory distress
NEUROLOGICAL: Alert and oriented
SKIN: Skin intact. No visible changes.
MUSCULOSKELETAL: Moving extremities normally
PSYCH: Normal and appropriate interaction.
This is a medical evaluation conducted in person to initiate diagnostic evaluation and provide initial therapeutics. Please see further documentation by the treating clinician.
Past History
<Noe Curry PA-C - Last Filed: 03/17/24 14:56>
Past History
ED Past Medical History: HTN, Hypercholesterolemia and Other (DVT, cervical disc disease, osteoarthritis, MRSA, DVT/PE); Negative Arrthythmia or IDDM
ED Past Surgical History: Orthopedic (Cervical-lumbar fusion, right shoulder replacement 2014, left knee replacement)
Social History
Tobacco: Non-smoker
Alcohol: None
Drug: None
Personal:
Living: with family
Employment: Retired
Family History
Family History: Hypertension
<Korey Morales MD - Last Filed: 03/17/24 20:38>
Past History
ED Past Medical History: Arrthythmia and Other (DVT)
ED Past Surgical History: Bowel resection, Gynecological and Other (Partial thyroidectomy. Multiple dental procedures)
Review of Systems
<Korey Morales MD - Last Filed: 03/17/24 20:38>
Review of Systems
All Other Systems: Not applicable
Constitutional: Denies fever or chills
Respiratory: Reports no symptoms
Cardiac: Reports no symptoms
ABD/GI: Reports no symptoms
Phy Exam
<Korey Morales MD - Last Filed: 03/17/24 20:38>
Physical Exam
Physical Exam:
GENERAL: Alert and oriented in no apparent distress
EYE: Orbits normal.
NECK: Supplet any obvious murmurs.
LUNGS: Clear breath sounds,normal
ABDOMEN: Soft, without focal tenderness or distention
NEUROLOGICAL: Alert and oriented , grossly non-focal
SKIN: Warm and dry, open draining wound to the right lower extremity with surrounding erythema. Significant drainage on the dressing. Superficial skin loss diffusely down the anterior tibia on the right leg towards the foot. Surrounding erythema
and swelling
MUSCULOSKELETAL: Left AKA
PSYCH: Normal and appropriate interaction.
Sepsis
<Korey Morales MD - Last Filed: 03/17/24 20:38>
Sepsis Screening
Sepsis Assessment: Sepsis Ruled Out
Sepsis Screen
Sepsis Screen: Sepsis Ruled Out
Date: 03/17/24
Time: 20:37
Course
<Noe Crury PA-C - Last Filed: 03/17/24 14:56>
Orders/Labs/Results
Orders:
Orders
03/17/24 14:54
CR Foot - Right Min 3 Views Urgent
Comment:
Reason For Exam: infection
CR Leg Tibia/fibula Right 2 Vw Urgent
Comment:
Reason For Exam: infection
03/17/24 15:09
Complete Blood Count/With Diff Urgent
Comprehensive Metabolic Panel Urgent
Blood Culture Q30M
WILLIAM Source: Blood/Venous
Specimen Description:
03/17/24 15:10
Blood Culture Q30M
WILLIAM Source: Blood/Venous
Specimen Description:
03/17/24 20:32
Vancomycin [Vancocin] 1,500 mg 0.9% Sodium Chloride 500 ml [Nss] 500 ml IV NOW
Abnormal Lab Results
03/17/24
15:09
WBC 11.0 H 10^3/uL
(4.8-10.8)
MCH 26.8 L pg
(27.0-31.0)
MCHC 30.8 L g/dL
(33.0-37.0)
RDW 16.4 H %
(11.5-14.5)
Abs Immat Gran (auto) 0.1 H 10^3/uL
(0-0.05)
Absolute Neuts (auto) 7.5 H 10^3/uL
(1.4-6.5)
Absolute Monos (auto) 0.7 H 10^3/uL
(0.1-0.6)
Lymphocytes % 20.4 L %
(20.5-51.1)
Potassium 5.2 H mmol/L
(3.5-5.1)
Chloride 95 L mmol/L
(98-107)
Carbon Dioxide 37 H mmol/L
(22-30)
Creatinine 0.5 L mg/dL
(0.6-1.0)
Glucose 115 H mg/dl
(70-99)
Total Protein 6.2 L g/dl
(6.3-8.2)
03/17/24 15:09
03/17/24 15:09
Vital Signs
Initial and Last Documented VS:
Initial Vital Signs
Temp Pulse Resp BP Pulse Ox
97.8 F 90 16 120/62 96
03/17/24 14:51 03/17/24 14:51 03/17/24 14:51 03/17/24 14:51 03/17/24 14:51
Last Documented Vital Signs
Temp Pulse Resp BP Pulse Ox
97.7 F 104 20 126/58 95
03/17/24 19:45 03/17/24 19:45 03/17/24 17:36 03/17/24 19:45 03/17/24 19:45
<Korey Morales MD - Last Filed: 03/17/24 20:38>
Orders/Labs/Results
Orders:
Orders
03/17/24 14:54
CR Foot - Right Min 3 Views Urgent
Comment:
Reason For Exam: infection
CR Leg Tibia/fibula Right 2 Vw Urgent
Comment:
Reason For Exam: infection
03/17/24 15:09
Complete Blood Count/With Diff Urgent
Comprehensive Metabolic Panel Urgent
Blood Culture Q30M
WILLIAM Source: Blood/Venous
Specimen Description:
03/17/24 15:10
Blood Culture Q30M
WILLIAM Source: Blood/Venous
Specimen Description:
03/17/24 20:32
Vancomycin [Vancocin] 1,500 mg 0.9% Sodium Chloride 500 ml [Nss] 500 ml IV NOW
Abnormal Lab Results
03/17/24
15:09
WBC 11.0 H 10^3/uL
(4.8-10.8)
MCH 26.8 L pg
(27.0-31.0)
MCHC 30.8 L g/dL
(33.0-37.0)
RDW 16.4 H %
(11.5-14.5)
Abs Immat Gran (auto) 0.1 H 10^3/uL
(0-0.05)
Absolute Neuts (auto) 7.5 H 10^3/uL
(1.4-6.5)
Absolute Monos (auto) 0.7 H 10^3/uL
(0.1-0.6)
Lymphocytes % 20.4 L %
(20.5-51.1)
Potassium 5.2 H mmol/L
(3.5-5.1)
Chloride 95 L mmol/L
(98-107)
Carbon Dioxide 37 H mmol/L
(22-30)
Creatinine 0.5 L mg/dL
(0.6-1.0)
Glucose 115 H mg/dl
(70-99)
Total Protein 6.2 L g/dl
(6.3-8.2)
03/17/24 15:09
03/17/24 15:09
Vital Signs
Initial and Last Documented VS:
Initial Vital Signs
Temp Pulse Resp BP Pulse Ox
97.8 F 90 16 120/62 96
03/17/24 14:51 03/17/24 14:51 02/03/25 14:51 03/17/24 14:51 03/17/24 14:51
Last Documented Vital Signs
Temp Pulse Resp BP Pulse Ox
97.7 F 104 20 126/58 95
03/17/24 19:45 03/17/24 19:45 03/17/24 17:36 03/17/24 19:45 03/17/24 19:45
<Korey Morales MD - Last Filed: 03/17/24 20:38>
MDM/Problems Addressed
Differential Diagnosis Includes:
Cellulitis right lower extremity. Warrants inpatient IV antibiotics. Allergies reviewed. Likely would be okay with penicillins. Will give a dose of vancomycin.
<Korey Morales MD - Last Filed: 03/17/24 20:38>
*Radiology
Radiology exam reviewed: radiology read reviewed (No acute findings)
*Pulse Oximetry
Patient hypoxic: no
*Critical Care Note
Total Time (30-74mins, 75-104mins- exclusive of procedures): Not Applicable
Data Reviewed
Review of Other/Old Records Reveals: Labs, Records and Testing
ED Attending Note
<Noe Curry PA-C - Last Filed: 03/17/24 14:56>
-
Portions of this chart may have been created with voice recognition software.� Occasional wrong word or��sound alike� substitutions may have occurred due to the inherent limitations of voice recognition software.
Discharge Plan
Departure
Patient Disposition: Admit
Date of Disposition: 03/17/24
Time of Disposition: 20:37
Presentation/result/management discussed w/ accepting MD/DO: Hospitalist
Discharge Problem:
Cellulitis right lower extremity
Prescriptions:
No Action
atorvastatin [Lipitor] 40 MG tablet
40 mg PO HS
ropinirole 2 MG tablet
8 mg PO TID
Eliquis 5 MG tablet
5 mg PO BID
pregabalin 150 mg capsule
150 mg PO BID
Patient Comments:
09/04/2023: last filled 07/27/23, 180 tabs for 90 days from [facility]
omeprazole 40 mg capsule,delayed release(DR/EC)
40 mg PO DAILY
nadolol 40 mg tablet
20 mg PO HS
albuterol sulfate 90 mcg/actuation HFA aerosol inhaler
2 puff inhalation R Q4HPRN PRN (Reason: sob wheezing)
Pulmicort Flexhaler 90 mcg/actuation aerosol powdr breath activated
1 inh inhalation BID Qty: 1 2RF
Interventions
Interventions:
*Risk Screen - Suicide Last Done: 03/17/24 14:51
*General Assessment Last Done: 03/17/24 20:23
*Neglect/Abuse Screening Last Done: 03/17/24 14:51
ED- Fall Risk Assessment Last Done: 03/17/24 20:23
*ED COVID-19 Vaccine History Last Done: 03/17/24 20:23
ED-Skin Assessment Last Done: 03/17/24 20:23
Discharge Date and Time
Print Language: GUAMANIAN
[2024-03-17 15:39] LABS: % Basophils 0.5 % (0-2); % Eosinophils 3.5 % (0-6); % Immature Granulocytes 0.5 % (0-0.5); % Lymphocytes 20.4 % (20.5-51.1); % Monocytes 6.7 % (1.7-9.3); % Neutrophils 68.4 % (42.2-75.2); Absolute Basophils 0.1 10^3/uL (0-0.2); Absolute Eosinophils 0.4 10^3/uL (0-0.7); Absolute Immature Granulocytes 0.1 10^3/uL (0-0.05); Absolute Lymphocytes 2.2 10^3/uL (1.2-3.4); Absolute Monocytes 0.7 10^3/uL (0.1-0.6); Absolute Neutrophils 7.5 10^3/uL (1.4-6.5); Hematocrit 42.5 % (37.0-47.0); Hemoglobin 13.1 g/dL (12.0-16.0); Mean Corp Hgb Conc. 30.8 g/dL (33.0-37.0); Mean Corpuscular Hgb 26.8 pg (27.0-31.0); Mean Corpuscular Volume 87.1 fL (81.0-99.0); Mean Platelet Volume 9.2 fL (7.4-10.4); Nucleated Red Blood Cells % 0 %; Platelet Count 352 10^3/uL (130-400); Red Blood Cell Count 4.88 10^6/uL (4.20-5.40); Red Cell Dist. Width 16.4 % (11.5-14.5)
[2024-03-17 15:42] LABS: ALT (SGPT) 16 U/L (0-35); AST (SGOT) 22 U/L (14-36); Albumin 3.5 g/dl (3.5-5.0); Alkaline Phosphatase 91 U/L (38-126); Blood Urea Nitrogen 15 mg/dl (7-17); Calcium 9.2 mg/dl (8.4-10.2); Carbon Dioxide 37 mmol/L (22-30); Chloride 95 mmol/L (98-107); Glucose 115 mg/dl (70-99); Potassium 5.2 mmol/L (3.5-5.1); Sodium 135 mmol/L (135-145); Total Bilirubin 0.5 mg/dl (0.2-1.3); Total Protein 6.2 g/dl (6.3-8.2); eGFR > 60.00
[2024-03-17 17:36] VITALS: BP 117/62
[2024-03-17 19:45] VITALS: BP 126/58
[2024-03-17 20:23] VITALS: BMI 37.9
--- NOTE | 2024-03-17 22:22 | HPS.HSE ---
Family Physician
-
Family Physician: Stef Flores
Chief Complaint
-
Worsening RLE redness, swelling pain
History of Present Illness
The patient is an 83 yo woman with PMH significant for HTN, HLD, PAF, GERD, neuropathy, left lower extremity amputation, CVA, PE/DVT, spinal stenosis, and recent hospitalization 01/18/24 to 01/23/24 due to acute hypoxic and hypercarbic respiratory
failure, right lower extremity venous stasis with ulceration and surrounding cellulitis, and bacteruria without UTI, who presents today to ED as a referral from wound care for evaluation of cellulitis of the RLE, now with increased pain, redness and
swelling. The RLE calf and daniels are weeping, red, swollen, a/w non-bloody, watery, diarrhea this week. No n/v, no fevers, no chills. She is seen in wound care, and RLE cellulitis had been improving, however recently started getting worse again. She
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 She has history of Right knee replacement.
ED txt: IV Vancomycin
Medical History
Past Medical History
Past Medical History: Reports Other
Additional Past Medical History:
CVA
PE/DVT
atrial fibrillation on Eliquis
chronic HFpEF
hypertension
hyperlipidemia
GERD
restless leg syndrome
spinal stenosis
neuropathy
Past Surgical History: Reports Other
Additional Past Surgical History:
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
partial thyroidectomy
Cervical-lumbar fusion
right shoulder replacement 2014
left knee replacement
Right knee replacement
Social History
Tobacco: Non-smoker
Alcohol: None
Drug: None
Personal:
Living: With Family
Family History
Family History: Not pertinent
Allergies / Home Medications
Allergies reflects when Allergies were last updated in [employer].
Home Medications with original date entered in [employer]
Allergy/Medication List:
Allergies
Allergy/AdvReac Type Severity Reaction Status Date / Time
adhesive [Adhesive] Allergy Itching/RED Verified 01/17/24 16:35
NESS
Aminoglycosides Allergy Pharmacy Verified 01/17/24 16:35
to Review
azithromycin [Azithromycin] Allergy patient Verified 01/17/24 16:35
denies
celecoxib [From Celebrex] Allergy started to Verified 01/17/24 16:35
break out
with sores
doxycycline Allergy Unknown Verified 01/17/24 16:35
erythromycin base Allergy CHEST PAIN Verified 01/17/24 16:35
furosemide [From Lasix] Allergy 'just Verified 01/17/24 16:35
doesn't
feel good'
- takes
bumetanide
at home
09/04/23
kanamycin Allergy Unknown Verified 01/17/24 21:25
Penicillins Allergy pt denies; Verified 01/17/24 16:35
says had
in 02/24
Home Medications
atorvastatin 40 mg tablet (Lipitor) 40 mg PO HS High cholesterol 06/22/20
ropinirole 2 mg tablet 8 mg PO TID Neurological Condition 07/25/22
apixaban 5 mg tablet (Eliquis) 5 mg PO BID Blood Clot Prevention/Tx 04/04/23
nadolol 40 mg tablet 20 mg PO HS Blood Pressure 04/04/23
omeprazole 40 mg capsule,delayed release 40 mg PO DAILY Gastrointestinal Issue 04/04/23
pregabalin 150 mg capsule 150 mg PO BID Neurological Condition 04/04/23
albuterol sulfate 90 mcg/actuation aerosol inhaler 2 puff inhalation R Q4HPRN PRN sob wheezing 01/17/24
budesonide 90 mcg/actuation breath activated powder inhaler (Pulmicort Flexhaler) 1 inh inhalation BID #1 ea 01/23/24
Review of Systems
-
A 12 point ROS was completed and negative except as noted: Yes
Physical Exam
Vital Signs
Vital Signs
Temp Pulse Resp BP Pulse Ox
97.7 F 104 20 126/58 95
03/17/24 19:45 03/17/24 19:45 03/17/24 17:36 03/17/24 19:45 03/17/24 19:45
Physical Exam
General: Well Developed, Well Nourished, No Apparent Distress and Comfortable
HEENT: NormoCephalic, Anicteric and Moist mucous membranes
Respiratory: Clear
Cardiac: S1/S2 and Regular Rhythm
GI: Soft, Non Tender, Non Distended and Normal Bowel Sounds
Musculoskeletal: No Clubbing, No Cyanosis, No Edema and Other (Left AKA)
Skin: Warm, Dry and Other (circumferential skin sloughing, weeping, erythema daniels wrapping around calf, good pulses)
Neuro: AO x 3, No Motor Deficits and Nonfocal/grossly intact
Psych: Calm
Laboratory Results
-
03/17/24 15:09
03/17/24 15:09
Laboratory Results
Total Bilirubin 0.5 mg/dl (0.2-1.3) 03/17/24 15:09
AST 22 U/L (14-36) 03/17/24 15:09
ALT 16 U/L (0-35) 03/17/24 15:09
Alkaline Phosphatase 91 U/L (38-126) 03/17/24 15:09
Impression/Plan
-
IMPRESSION:The patient is an 83 yo woman with PMH significant for HTN, HLD, PAF, GERD, neuropathy, left lower extremity amputation, CVA, PE/DVT, spinal stenosis, and recent hospitalization 01/18/24 to 01/23/24 due to acute hypoxic and hypercarbic
respiratory failure, right lower extremity venous stasis with ulceration and surrounding cellulitis, and bacteruria without UTI, who presents today to ED as a referral from wound care for evaluation of cellulitis of the RLE, now with increased pain,
redness and swelling. The RLE calf and daniels are weeping, red, swollen, a/w non-bloody, watery, diarrhea this week. No n/v, no fevers, no chills. She is seen in wound care, and RLE cellulitis had been improving, however recently started getting worse
again. 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 She has history of Right knee replacement.
ED txt: IV Vancomycin
#Cellulitis right lower extremity, leukocytosis 11.0, afebrile, circumferential weeping, down to subcutaneous layer
-Wound cx RLE 01/17 was positive for Pseudomonas aeruginosa and E. Faecalis sensitive to Zosyn and Vancomycin
-wound care consultation - will need aggressive wound care
-cont IV Vancomycin and add IV Zosyn for now, monitor clinically w wound care
-ID consultation appreciated
-blood cultures
#Essential Hypertension.
#Dyslipidemia.
#Paroxysmal atrial fibrillation.
#Gastroesophageal reflux disease.
#Restless leg syndrome.
#Neuropathy.
#Left lower extremity amputation.
# Prior history of cerebrovascular accident, pulmonary embolus and
deep vein thrombosis, spinal stenosis.
DVT proph
Full Code
[2024-03-18] MEDS: VANCOCIN 530 MG IV (00:35)
[2024-03-18 00:45] VITALS: BMI 37.9
[2024-03-18] MEDS: TYLENOL 650 MG PO ×4 (01:13→17:06)
[2024-03-18 01:17] VITALS: BP 116/62
[2024-03-18] MEDS: ZOSYN 50 IV (01:18)
[2024-03-18 01:19] VITALS: BP 116/62
[2024-03-18] MEDS: ULTRAM 25 MG PO (02:11)
[2024-03-18] MEDS: ZOSYN 100 IV ×3 (05:40→17:07)
[2024-03-18 06:03] LABS: % Basophils 0.5 % (0-2); % Eosinophils 2.5 % (0-6); % Immature Granulocytes 0.5 % (0-0.5); % Lymphocytes 22.1 % (20.5-51.1); % Monocytes 7.8 % (1.7-9.3); % Neutrophils 66.6 % (42.2-75.2); Absolute Basophils 0.1 10^3/uL (0-0.2); Absolute Eosinophils 0.3 10^3/uL (0-0.7); Absolute Immature Granulocytes 0.1 10^3/uL (0-0.05); Absolute Lymphocytes 2.4 10^3/uL (1.2-3.4); Absolute Monocytes 0.8 10^3/uL (0.1-0.6); Absolute Neutrophils 7.2 10^3/uL (1.4-6.5); Mean Corp Hgb Conc. 31.4 g/dL (33.0-37.0); Mean Corpuscular Hgb 26.8 pg (27.0-31.0); Mean Corpuscular Volume 85.2 fL (81.0-99.0); Mean Platelet Volume 9.2 fL (7.4-10.4); Nucleated Red Blood Cells % 0 %; Platelet Count 307 10^3/uL (130-400); Red Blood Cell Count 4.11 10^6/uL (4.20-5.40); Red Cell Dist. Width 16.3 % (11.5-14.5); White Blood Cell Count 10.8 10^3/uL (4.8-10.8)
[2024-03-18 06:07] LABS: Blood Urea Nitrogen 12 mg/dl (7-17); Calcium 8.3 mg/dl (8.4-10.2); Carbon Dioxide 30 mmol/L (22-30); Chloride 98 mmol/L (98-107); Estimated Creatinine Clearance 69 ml/min; Glucose 109 mg/dl (70-99); Potassium 4.5 mmol/L (3.5-5.1); Sodium 135 mmol/L (135-145); eGFR > 60.00
[2024-03-18] MEDS: FLOVENT 44 MCG INHALER 1 PUFF INH ×2 (07:23→20:26)
[2024-03-18] MEDS: ELIQUIS 5 MG PO ×2 (07:46→20:26)
[2024-03-18 07:56] VITALS: BP 99/68
--- NOTE | 2024-03-18 09:21 | VNURNOTE ---
Chart reviewed.� Patient is current with [facility] nursing.� Will continue to follow hospital course and DC plans.
[2024-03-18 10:24] VITALS: BP 131/66
[2024-03-18] MEDS: ULTRAM 50 MG PO ×2 (12:06→18:02)
--- NOTE | 2024-03-18 12:30 | WOUNDNOTE ---
EZRA RN note: Patient admitted with right lower extremity chronic wound and cellulitis
See H&P for complete history.
PMH: PE/DVT, CHF, HTN, GERD, spinal stenosis, neuropathy, left AKA 2018 due to MRSA infection, R leg venous ulcer.
Wound Location and type/assessment: Patient known to service, admitted with chronic venous wound to right LE, now with cellulitis. The wound covers the circumference of the lower leg, improved compared to last pictures. Redness and trace edema of R
leg, heel intact. Dorsal foot with healing venous weeping. Patient able to turn to sides, Sacrum is intact. Patient goes to [facility], reviewed current wound care and compression with patient. Mild fungal rash reported in skin folds, ie breast.
Pressure redistribution devices in place: Advanta bed, add Static air if becomes difficult to turn. R leg elevated.
Plan: Cultures obtained as ordered, nurse Ericka aware and will send to lab. Local wound care provided and Tubigrip F knee high applied. Will order fungal powder for skin folds. Called [facility] for wound care supplies.
Will confirm orders with hospitalist and updated nurse.
Updated care plan and will follow as needed.
Note to case management of equipment requested for discharge: [facility]
[2024-03-18 15:14] VITALS: BP 103/62
--- NOTE | 2024-03-18 15:21 | W.PN.HOSP.TC ---
Today's Communication/Plan
-
follow ID and wound care recs
continue IV abx
PT/OT
Assessment / Plan
Assessment / Plan
Assessment:
Right LE cellulitis
Underlying history of venous stasis dermatitis
- wound care following - follow recs
- ID consulted; continue Vancomycin, Zosyn (hx of E. Faecalis and Pseudomonas).
- wound culture pending; also follow blood cultures
Hyperkalemia
- resolved
Essential Hypertension
- on Nadolol
Dyslipidemia
- on statin
Paroxysmal atrial fibrillation
- continue nadolol and Eliquis
Gastroesophageal reflux disease
- PPI
Restless leg syndrome.
Neuropathy
- continue ropinirole/Lyrica
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
Prior history of cerebrovascular accident
Hx of pulmonary embolus and deep vein thrombosis
- continue Eliquis
spinal stenosis.
CODE STATUS: Full code
DVT prophylaxis: Eliquis
Anticipated Discharge: > 48 hours
Subjective/Interval History
-
Date of Service: March 18, 2024
Reports RLE pain, well controlled with Tramadol
denies any fever/chills
Objective Data
-
Labs:
Laboratory Results
03/18/24
05:30
WBC 10.8
Hgb 11.0 L
Hct 35.0 L
Plt Count 307
Sodium 135
Potassium 4.5
Chloride 98
Carbon Dioxide 30
BUN 12
Creatinine 0.5 L
Glucose 109 H
Calcium 8.3 L
Vital Signs:
Vital Signs
Temp Pulse Resp BP Pulse Ox
98.3 F 99 16 103/62 93
03/18/24 15:14 03/18/24 15:14 03/18/24 15:14 03/18/24 15:14 03/18/24 15:14
Physical Exam
-
General: No Apparent Distress
HEENT: Normocephalic and Atraumatic
Respiratory: Negative Wheezes
Cardiac: Regular Rhythm and S1/S2
GI: Soft and Nontender
Genito-urinary: No Costovertebral Tender
Musculoskeletal: Other (L AKA, RLE venous stasis with superimposed cellulitis)
Neuro: AO x 3
Hematologic / Lymphatic: No Lymphadenopathy
Psych: Calm
Data Reviewed
-
Total Time Spent with Patient (in minutes): 45
Labs: Labs Reviewed by me
--- NOTE | 2024-03-18 15:43 | CON.ID ---
Consultation
-
Date/Time Consultation Requested: March 18, 2024 0002
Date/Time Consultation Performed: March 18, 2024 1545
Requesting Provider: Dr. Belem Martines
Performing Provider: Dr. Annalise Becker
Reason for Consultation: Cellultis, failed wound care
Chief Complaint / Past History
Chief Complaint
Weeping Right leg
History of Present Illness
83-year-old female with HFpEF, Afib, left AKA, chronic right lower extremity venous stasis wound who [facility] cellulitis [facility] 03/17/24. She was last hospitalized here in January for right lower extremity
cellulitis. Since then the wound wounds were healing. However over the past few days she noted weeping soaking the dressing. She also had more pain. At the wound center today, the right leg noted to be very erythematous. She was sent to the ER.
No fevers or chills. No nausea vomiting or diarrhea. Patient reports compliance with compression and leg elevation.
Past History
Additional Past Medical History:
Hx CVA/TIA
HTN
DVT/PE
Afib
HFpEF
hypothyroidism
partial thyroidectomy
Right LE chronic venous stasis wounds
BMI 38
L TKR
R shoulder replacement
endometriosis s/p hysterectomy, colon resection
L AKA
cervical and lumbar fusion
Restless leg syndrome
Allergy History:
adhesive [Adhesive] Allergy (Verified 01/17/24 16:35)
Itching/REDNESS
Aminoglycosides Allergy (Verified 01/17/24 16:35)
Pharmacy to Review
azithromycin [Azithromycin] Allergy (Verified 01/17/24 16:35)
patient denies
celecoxib [From Celebrex] Allergy (Verified 01/17/24 16:35)
started to break out with sores
doxycycline Allergy (Verified 01/17/24 16:35)
Unknown
erythromycin base Allergy (Verified 01/17/24 16:35)
CHEST PAIN
furosemide [From Lasix] Allergy (Verified 01/17/24 16:35)
'just doesn't feel good' - takes bumetanide at home 09/04/23
kanamycin Allergy (Verified 01/17/24 21:25)
Unknown
Penicillins Allergy (Verified 01/17/24 16:35)
pt denies; says had in 02/24
Medications Reviewed: Yes
Current Antibiotics:
Zosyn
Social History
Tobacco: Non-Smoker
Alcohol: None
Drug: None
Personal:
Family History
Family History: Not Pertinent
Review of Systems
Review of Systems
General: Negative Fever, Chills or Change in Appetite
HEENT: Negative Sinus Problems, Headache or Pharyngitis
Cardiovascular: Negative Chest Pain or Dyspnea
Respiratory: Negative Dyspnea or Cough
Gasteroenterology: Negative Nausea, Vomiting or Diarrhea
Genital / Urological: Negative Dysuria or Flank Pain
Endocrine: Negative Weakness
All systems: All other systems were reviewed and were negative
Vital Signs
Temp Pulse Resp BP Pulse Ox
98.3 F 99 16 103/62 93
03/18/24 15:14 03/18/24 15:14 03/18/24 15:14 03/18/24 15:14 03/18/24 15:14
Physical Exam
Physical Exam
Constitutional: No Acute Distress and Comfortable
Eyes: No Conjunctival Hemorrhage and Sclera Anicteric
Cardiovascular: Regular Rate and S1/S2
Pulmonary: Clear
Gastrointestinal: Soft, Non Tender, Non Distended and Normal Bowel Sounds
Extremities: Edema (RLE 2+)
Wound: Other (Reviewed today's wound photos; Lower half of RLE with circumferential surface wound,serous drainage, bright eryhema extending to dorsum of foot; )
Neurological: AO x 3
Lab / Diagnostic Study Results
03/18/24 05:30
03/18/24 05:30
Abs Immat Gran (auto) 0.1 10^3/uL (0-0.05) H 03/18/24 05:30
Absolute Neuts (auto) 7.2 10^3/uL (1.4-6.5) H 03/18/24 05:30
Absolute Lymphs (auto) 2.4 10^3/uL (1.2-3.4) 03/18/24 05:30
Absolute Monos (auto) 0.8 10^3/uL (0.1-0.6) H 03/18/24 05:30
Absolute Basos (auto) 0.1 10^3/uL (0-0.2) 03/18/24 05:30
Immature Gran % 0.5 % (0-0.5) 03/18/24 05:30
Neutrophils % 66.6 % (42.2-75.2) 03/18/24 05:30
Lymphocytes % 22.1 % (20.5-51.1) 03/18/24 05:30
Monocytes % 7.8 % (1.7-9.3) 03/18/24 05:30
Eosinophils % 2.5 % (0-6) 03/18/24 05:30
Basophils % 0.5 % (0-2) 03/18/24 05:30
Microbiology Results
Micro:
03/17/24 15:09 Blood Culture - Preliminary
Blood/Venous No Growth in 24 hours- Final report to follow
03/18/24 11:51 Wound Culture - Pending
Ankle - Right Gram Stain - Preliminary
Assessment / Plan
# Acute RLE cellulitis
# Chronic RLE venous stasis wounds
- Agree with Zosyn.
-Continue compression.
-Elevate leg
- Appreciate wound care nurse recs.
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
Hx CVA/TIA
HTN
DVT/PE
Afib
HFpEF
hypothyroidism
partial thyroidectomy
Right LE chronic venous stasis wounds
BMI 38
L TKR
R shoulder replacement
endometriosis s/p hysterectomy, colon resection
L AKA
cervical and lumbar fusion
Restless leg syndrome
--- NOTE | 2024-03-18 15:52 | CM ---
CM met with pt, spouse and her family bedside
Pt and spouse reside i a 2[address] with ramp entrance
Pt has a L AKA and utilizes a motorized wheelchair, has ramp entrance
Pt is independent with transfers and sleeps on 1st floor in regular bed
Pt has a live-in aide/Jo who was bedside who is available for house and personal care assistance
Pt is current with [facility] and out wound center
Rx through [facility]
No financial insecurities
PCP- Stef Flores
Rx- [facility]
PT eval requested for transfers assessment
Discharge Disposition- anticipate home with [facility]
[2024-03-18] MEDS: REQUIP 8 MG PO ×2 (17:06→22:28)
[2024-03-18] MEDS: LIPITOR 40 MG PO (20:26)
[2024-03-18] MEDS: LYRICA 150 MG PO (20:26)
[2024-03-18] MEDS: DESENEX/MITRAZOL/ZEASORB 1 APPLIC TOPICAL (20:27)
[2024-03-18] MEDS: CORGARD 20 MG PO (22:28)
[2024-03-18 22:29] VITALS: BP 122/69
[2024-03-19] MEDS: ZOSYN 100 IV ×5 (01:20→23:22)
[2024-03-19] MEDS: TYLENOL 650 MG PO ×3 (03:12→22:31)
[2024-03-19] MEDS: ULTRAM 50 MG PO ×3 (03:12→20:06)
[2024-03-19 07:35] VITALS: BP 100/45
[2024-03-19] MEDS: ELIQUIS 5 MG PO ×2 (09:03→20:04)
[2024-03-19] MEDS: DESENEX/MITRAZOL/ZEASORB 1 APPLIC TOPICAL (09:04)
[2024-03-19] MEDS: PROTONIX 40 MG PO (09:04)
[2024-03-19] MEDS: REQUIP 8 MG PO ×3 (09:04→22:27)
[2024-03-19] MEDS: LYRICA 150 MG PO ×2 (09:04→20:04)
[2024-03-19 10:21] LABS: Hematocrit 37.2 % (37.0-47.0); Hemoglobin 11.6 g/dL (12.0-16.0); Mean Corp Hgb Conc. 31.2 g/dL (33.0-37.0); Mean Corpuscular Hgb 26.6 pg (27.0-31.0); Mean Corpuscular Volume 85.3 fL (81.0-99.0); Platelet Count 310 10^3/uL (130-400); Red Blood Cell Count 4.36 10^6/uL (4.20-5.40); Red Cell Dist. Width 16.3 % (11.5-14.5); White Blood Cell Count 7.7 10^3/uL (4.8-10.8)
--- NOTE | 2024-03-19 12:22 | CM ---
Met with pt at bedside
Discussed [facility] at discharge - Current with [facility] - will refer for [facility]
Reports will have ride at discharge
Plan - anticipate home with [facility]
[2024-03-19 12:55] LABS: Blood Urea Nitrogen 10 mg/dl (7-17); Calcium 8.6 mg/dl (8.4-10.2); Carbon Dioxide 33 mmol/L (22-30); Chloride 96 mmol/L (98-107); Estimated Creatinine Clearance 69 ml/min; Glucose 124 mg/dl (70-99); Potassium 4.4 mmol/L (3.5-5.1); Sodium 134 mmol/L (135-145); eGFR > 60.00
[2024-03-19 13:05] VITALS: BP 142/79
--- NOTE | 2024-03-19 13:34 | VNURNOTE ---
Microbiology Coordinator met with patient to discuss resumption of [facility] nurse visits. Patient is agreeable and understands that visits at home will be 2-3 x per week to assess and teach medical management.
Patient declined [facility] brochure. SHe states she has the contact information. Patient is aware that [facility] will contact them for start of care in 1-2 days after discharge from .
[facility] referral completed in [facility].
--- NOTE | 2024-03-19 13:36 | W.PN.ID1 ---
Date of Service
Date of Service: March 19, 2024
Today's Communication
Continue Zosyn
Assessment / Plan
# Acute RLE cellulitis
# Chronic RLE venous stasis wounds
- Wound cx Pseudomonas as previous
- Continue Zosyn d2.
-Continue compression.
-Elevate leg
- Appreciate wound care nurse recs.
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
Hx CVA/TIA
HTN
DVT/PE
Afib
HFpEF
hypothyroidism
partial thyroidectomy
Right LE chronic venous stasis wounds
BMI 38
L TKR
R shoulder replacement
endometriosis s/p hysterectomy, colon resection
L AKA
cervical and lumbar fusion
Restless leg syndrome
Chief Complaint
-: Cellulitis
Subjective / Review of Systems
Right leg still painful; less wound slough.
Vital Signs / Physical Exam
Vital Signs
Vital Signs
Temp Pulse Resp BP Pulse Ox
97.6 F 93 17 142/79 94
03/19/24 07:35 03/19/24 13:05 03/19/24 13:05 03/19/24 13:05 03/19/24 13:05
Physical Exam
Constitutional: No Acute Distress and Comfortable
Pulmonary: Clear
Gastrointestinal: Soft, Non Tender and Non Distended
Wound: Other (RLE dressing dry)
Neurological: AO x 3
Objective Data
Lab Data
Lab Results
03/19/24 10:09
03/19/24 11:50
Estimated Creat Clear 69 ml/min 03/19/24 11:50
Total Bilirubin 0.5 mg/dl (0.2-1.3) 03/17/24 15:09
AST 22 U/L (14-36) 03/17/24 15:09
ALT 16 U/L (0-35) 03/17/24 15:09
Alkaline Phosphatase 91 U/L (38-126) 03/17/24 15:09
Most recent labs reviewed.
Micro Results:
03/18/24 11:51 Wound Culture - Preliminary
Ankle - Right Pseudomonas aeruginosa
Gram Stain - Preliminary
03/17/24 15:09 Blood Culture - Preliminary
Blood/Venous No Growth in 24 hours- Final report to follow
--- NOTE | 2024-03-19 14:42 | W.PN.HOSP.TC ---
Today's Communication/Plan
-
Monitor vital signs
see plan
Continue wound care
Continue IV antibiotics
Assessment / Plan
Assessment / Plan
Assessment:
Right LE cellulitis
Underlying history of venous stasis dermatitis
- wound care following - follow recs
- ID consulted; continue Vancomycin, Zosyn (hx of E. Faecalis and Pseudomonas).
- wound culture growing Pseudomonas; blood culture NGTD
Hyponatremia
Monitor
Hyperkalemia
- resolved
Essential Hypertension
- on Nadolol
Dyslipidemia
- on statin
Paroxysmal atrial fibrillation
- continue nadolol and Eliquis
Gastroesophageal reflux disease
- PPI
Restless leg syndrome.
Neuropathy
- continue ropinirole/Lyrica
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
Prior history of cerebrovascular accident
Hx of pulmonary embolus and deep vein thrombosis
- continue Eliquis
spinal stenosis.
CODE STATUS: Full code
DVT prophylaxis: Eliquis
General: No Apparent Distress
HEENT: Normocephalic and Atraumatic
Respiratory: Negative Wheezes
Cardiac: Regular Rhythm and S1/S2
GI: Soft and Nontender
Genito-urinary: No Costovertebral Tender
Musculoskeletal: Other (L AKA, RLE venous stasis with superimposed cellulitis)
Neuro: AO x 3
Psych: Calm
Anticipated Discharge: 24 - 48 hours
Subjective/Interval History
-
Date of Service: March 19, 2024
Denies nausea
Objective Data
-
Labs:
Laboratory Results
03/19/24 03/19/24
10:09 11:50
WBC 7.7
Hgb 11.6 L
Hct 37.2
Plt Count 310
Sodium Cancelled 134 L
Potassium Cancelled 4.4
Chloride Cancelled 96 L
Carbon Dioxide Cancelled 33 H
BUN Cancelled 10
Creatinine Cancelled 0.5 L
Glucose Cancelled 124 H
Calcium Cancelled 8.6
Vital Signs:
Vital Signs
Temp Pulse Resp BP Pulse Ox
97.6 F 93 17 142/79 94
03/19/24 07:35 03/19/24 13:05 03/19/24 13:05 03/19/24 13:05 03/19/24 13:05
I&O
03/18/24 03/19/24 03/20/24
06:59 06:59 06:59
Intake Total 820 / 820
Balance 820 / 820
[2024-03-19] MEDS: FLOVENT 44 MCG INHALER INH (15:14)
[2024-03-19] MEDS: FLOVENT 44 MCG INHALER 1 PUFF INH (21:06)
[2024-03-19] MEDS: LIPITOR 40 MG PO (22:27)
[2024-03-19] MEDS: CORGARD 20 MG PO (22:27)
[2024-03-19] MEDS: DESENEX/MITRAZOL/ZEASORB TOPICAL (22:35)
[2024-03-19 23:00] VITALS: BP 146/71
[2024-03-20] MEDS: ZOSYN 100 IV (06:19)
[2024-03-20] MEDS: REQUIP 8 MG PO ×3 (06:39→22:14)
[2024-03-20 07:20] LABS: % Basophils 0.6 % (0-2); % Eosinophils 4.1 % (0-6); % Immature Granulocytes 0.5 % (0-0.5); % Lymphocytes 25.3 % (20.5-51.1); % Monocytes 6.9 % (1.7-9.3); % Neutrophils 62.6 % (42.2-75.2); Absolute Basophils 0.1 10^3/uL (0-0.2); Absolute Eosinophils 0.3 10^3/uL (0-0.7); Absolute Lymphocytes 2.1 10^3/uL (1.2-3.4); Absolute Monocytes 0.6 10^3/uL (0.1-0.6); Absolute Neutrophils 5.2 10^3/uL (1.4-6.5); Hematocrit 36.2 % (37.0-47.0); Hemoglobin 11.2 g/dL (12.0-16.0); Mean Corp Hgb Conc. 30.9 g/dL (33.0-37.0); Mean Corpuscular Hgb 26.5 pg (27.0-31.0); Mean Corpuscular Volume 85.6 fL (81.0-99.0); Nucleated Red Blood Cells % 0 %; Platelet Count 303 10^3/uL (130-400); Red Blood Cell Count 4.23 10^6/uL (4.20-5.40); Red Cell Dist. Width 16.3 % (11.5-14.5); White Blood Cell Count 8.3 10^3/uL (4.8-10.8)
[2024-03-20 07:44] LABS: Blood Urea Nitrogen 11 mg/dl (7-17); Calcium 8.2 mg/dl (8.4-10.2); Carbon Dioxide 36 mmol/L (22-30); Chloride 99 mmol/L (98-107); Estimated Creatinine Clearance 69 ml/min; Glucose 106 mg/dl (70-99); Potassium 3.8 mmol/L (3.5-5.1); Sodium 135 mmol/L (135-145); eGFR > 60.00
[2024-03-20 08:02] VITALS: BP 105/60
[2024-03-20] MEDS: FLOVENT 44 MCG INHALER INH (08:12)
[2024-03-20] MEDS: PROTONIX 40 MG PO (08:42)
[2024-03-20] MEDS: LYRICA 150 MG PO ×2 (08:42→20:12)
[2024-03-20] MEDS: ELIQUIS 5 MG PO ×2 (08:42→20:12)
[2024-03-20] MEDS: DESENEX/MITRAZOL/ZEASORB TOPICAL (08:45)
[2024-03-20] MEDS: ULTRAM 50 MG PO ×2 (10:02→20:14)
[2024-03-20] MEDS: TYLENOL 650 MG PO ×2 (10:03→22:15)
[2024-03-20] MEDS: CIPRO 750 MG PO ×2 (10:04→20:12)
--- NOTE | 2024-03-20 10:04 | W.PN.ID1 ---
Date of Service
Date of Service: March 20, 2024
Today's Communication
- DC Zosyn (resistant)
- Start cipro 750mg po bid.
Assessment / Plan
# Acute RLE cellulitis, no improvement
# Chronic RLE venous stasis wounds
- Wound cx MDR-Pseudomonas
- DC Zosyn (resistant)
- Start cipro 750mg po bid.
- Follow QTc while on cipro. Ordered ECG for am
- Contact precaution
# Abx-associated diarrhea
- Ordered lactobacillus
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
Hx CVA/TIA
HTN
DVT/PE
Afib
HFpEF
hypothyroidism
partial thyroidectomy
Right LE chronic venous stasis wounds
BMI 38
L TKR
R shoulder replacement
endometriosis s/p hysterectomy, colon resection
L AKA
cervical and lumbar fusion
Restless leg syndrome
Chief Complaint
-: Cellulitis
Subjective / Review of Systems
c/o diarrhea last night
Leg wound pain stable
Vital Signs / Physical Exam
Vital Signs
Vital Signs
Temp Pulse Resp BP Pulse Ox
97.9 F 80 20 105/60 94
03/20/24 08:02 03/20/24 08:02 03/20/24 08:02 03/20/24 08:02 03/20/24 09:40
Physical Exam
Constitutional: No Acute Distress
Pulmonary: Clear
Gastrointestinal: Soft, Non Tender and Non Distended
Wound: Other (RLE removed dressing: no change of bright erythema dorsum of foot up the daniels with circumferential wound. + thick yellow-green drainage, decreased)
Neurological: AO x 3
Objective Data
Lab Data
Lab Results
03/20/24 06:00
03/20/24 06:00
Estimated Creat Clear 69 ml/min 03/20/24 06:00
Total Bilirubin 0.5 mg/dl (0.2-1.3) 03/17/24 15:09
AST 22 U/L (14-36) 03/17/24 15:09
ALT 16 U/L (0-35) 03/17/24 15:09
Alkaline Phosphatase 91 U/L (38-126) 03/17/24 15:09
Most recent labs reviewed.
Micro Results:
03/18/24 11:51 Wound Culture - Final
Ankle - Right Pseudomonas aeruginosa
Gram Stain - Final
03/17/24 15:09 Blood Culture - Preliminary
Blood/Venous No Growth in 48 hours- Final report to follow
SPEC #: [id number] DENI: 03/18/24-115 STATUS: COMP REQ #: [id number]
RECD: 03/18/24-[address]: Belem Martines DO
SOURCE: ANKLE ENTR: 03/18/24-[address]: Melchor SANDHU,Ranjit
SPDESC: Right Sandra SANDHU,Stef Gillis
Annalise Becker MD
ORDERED: Wound/Other
QUERIES: Comment RLE
Date Specimen was Collected 03/18/24
Time Specimen was Collected 114
Procedure Result Verified
Wound/abscess/other Cult Final 03/20/24-842
Few Pseudomonas aeruginosa
Moderate Diptheroids
Organism 1 Pseudomonas aeruginosa
1. Pseudomonas aeruginosa
M.I.C. RX
--------- ---
Aztreonam >16 R
Cefepime 8 S
Ceftazidime >16 R
Ciprofloxacin 0.5 S
Meropenem 4 I
Piperacillin/Tazobactam >64 R
Tobramycin <=2 S
Gram Stain Final 03/20/245405
Moderate WBC
Rare Gram Negative Rods
--- NOTE | 2024-03-20 11:22 | W.PN.HOSP.TC ---
Today's Communication/Plan
-
Monitor vital signs see plan
Switch antibiotics to ciprofloxacin
EKG in am for QTc
Assessment / Plan
Assessment / Plan
Assessment:
Right LE cellulitis
Underlying history of venous stasis dermatitis
- wound care following - follow recs
- ID following, wound culture with Pseudomonas resistant to Zosyn. Switch antibiotics to ciprofloxacin. EKG in a.m. for QTc
- wound culture growing Pseudomonas; blood culture NGTD
Hyponatremia
Resolved
Hyperkalemia
- resolved
Essential Hypertension
- on Nadolol
Dyslipidemia
- on statin
Paroxysmal atrial fibrillation
- continue nadolol and Eliquis
Gastroesophageal reflux disease
- PPI
Restless leg syndrome.
Neuropathy
- continue ropinirole/Lyrica
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
Prior history of cerebrovascular accident
Hx of pulmonary embolus and deep vein thrombosis
- continue Eliquis
spinal stenosis.
CODE STATUS: Full code
DVT prophylaxis: Eliquis
General: No Apparent Distress
HEENT: Normocephalic and Atraumatic
Respiratory: Negative Wheezes
Cardiac: Regular Rhythm and S1/S2
GI: Soft and Nontender
Genito-urinary: No Costovertebral Tender
Musculoskeletal: Other (L AKA, RLE venous stasis with superimposed cellulitis)
Neuro: AO x 3
Psych: Calm
Anticipated Discharge: Within 24 hours
Subjective/Interval History
-
Date of Service: March 20, 2024
Denies nausea
Objective Data
-
Labs:
Laboratory Results
03/20/24
06:00
WBC 8.3
Hgb 11.2 L
Hct 36.2 L
Plt Count 303
Sodium 135
Potassium 3.8
Chloride 99
Carbon Dioxide 36 H
BUN 11
Creatinine 0.5 L
Glucose 106 H
Calcium 8.2 L
Vital Signs:
Vital Signs
Temp Pulse Resp BP Pulse Ox
97.9 F 80 20 105/60 94
03/20/24 08:02 03/20/24 08:02 03/20/24 08:02 03/20/24 08:02 03/20/24 09:40
I&O
03/19/24 03/20/24 03/21/24
06:59 06:59 06:59
Intake Total 820 / 820 990 / 990
Balance 820 / 820 990 / 990
[2024-03-20] MEDS: VISBIOME 2 CAP PO (11:42)
[2024-03-20] MEDS: LIDOCAINE 4% PATCH 1 PATCH TOPICAL (11:42)
[2024-03-20] MEDS: DESENEX/MITRAZOL/ZEASORB 1 APPLIC TOPICAL ×2 (11:43→20:16)
--- NOTE | 2024-03-20 15:48 | CM ---
Patient seen at bedside, patient present. Per plan is for discharge home with [facility] and he asked for physician to call him. CM sent TT. Patient is current with [facility]. Plan home with PO antibiotics per nursing. CM will continue to follow
for discharge planning needs.
Plan; home with [facility] and family supports.
[2024-03-20 15:53] VITALS: BP 112/71
[2024-03-20] MEDS: FLOVENT 44 MCG INHALER 1 PUFF INH (20:55)
[2024-03-20] MEDS: LIPITOR 40 MG PO (22:15)
[2024-03-20] MEDS: CORGARD 20 MG PO (22:15)
[2024-03-20 23:25] VITALS: BP 114/56
[2024-03-21 06:00] VITALS: BMI 37.6
[2024-03-21 06:38] LABS: % Basophils 0.6 % (0-2); % Eosinophils 5.4 % (0-6); % Immature Granulocytes 0.2 % (0-0.5); % Lymphocytes 26.2 % (20.5-51.1); % Neutrophils 61.6 % (42.2-75.2); Absolute Basophils 0.1 10^3/uL (0-0.2); Absolute Eosinophils 0.4 10^3/uL (0-0.7); Absolute Lymphocytes 2.1 10^3/uL (1.2-3.4); Absolute Monocytes 0.5 10^3/uL (0.1-0.6); Hematocrit 39.2 % (37.0-47.0); Hemoglobin 12.2 g/dL (12.0-16.0); Mean Corp Hgb Conc. 31.1 g/dL (33.0-37.0); Mean Corpuscular Hgb 26.9 pg (27.0-31.0); Mean Corpuscular Volume 86.3 fL (81.0-99.0); Nucleated Red Blood Cells % 0 %; Platelet Count 341 10^3/uL (130-400); Red Blood Cell Count 4.54 10^6/uL (4.20-5.40); Red Cell Dist. Width 16.3 % (11.5-14.5); White Blood Cell Count 8.2 10^3/uL (4.8-10.8)
[2024-03-21 07:36] LABS: Blood Urea Nitrogen 10 mg/dl (7-17); Calcium 8.3 mg/dl (8.4-10.2); Carbon Dioxide 37 mmol/L (22-30); Chloride 97 mmol/L (98-107); Estimated Creatinine Clearance 69 ml/min; Glucose 126 mg/dl (70-99); Potassium 4.3 mmol/L (3.5-5.1); Sodium 136 mmol/L (135-145); eGFR > 60.00
[2024-03-21 07:43] VITALS: BP 105/65
[2024-03-21] MEDS: FLOVENT 44 MCG INHALER 1 PUFF INH (07:52)
[2024-03-21] MEDS: LIDOCAINE 4% PATCH 1 PATCH TOPICAL (08:46)
[2024-03-21] MEDS: CIPRO 750 MG PO (08:48)
[2024-03-21] MEDS: VISBIOME 2 CAP PO (08:48)
[2024-03-21] MEDS: LYRICA 150 MG PO (08:48)
[2024-03-21] MEDS: PROTONIX 40 MG PO (08:48)
[2024-03-21] MEDS: REQUIP 8 MG PO (08:48)
[2024-03-21] MEDS: ELIQUIS 5 MG PO (08:48)
--- NOTE | 2024-03-21 09:53 | W.PN.HOSP.TC ---
Addendum entered and electronically signed by Dante Connors MD 03/21/24 10:18:
Spouse updated over the phone. Discharge today
Time of discharge 38 minutes
Original Note:
Today's Communication/Plan
-
Monitor vital signs see plan
Continue with ciprofloxacin, QTc acceptable
Awaiting ID recommendation prior to discharge
Discharge today
Assessment / Plan
Assessment / Plan
Assessment:
Right LE cellulitis
Underlying history of venous stasis dermatitis
- wound care following - follow recs
- ID following, wound culture with Pseudomonas resistant to Zosyn. Switch antibiotics to ciprofloxacin. QTc 450, awaiting response from infectious disease regarding disposition.
- wound culture growing Pseudomonas; blood culture NGTD
Patient will follow-up with infectious disease and wound care center outpatient
Hyponatremia
Resolved
Hyperkalemia
- resolved
Essential Hypertension
- on Nadolol
Dyslipidemia
- on statin
Paroxysmal atrial fibrillation
- continue nadolol and Eliquis
Gastroesophageal reflux disease
- PPI
Restless leg syndrome.
Neuropathy
- continue ropinirole/Lyrica
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
Prior history of cerebrovascular accident
Hx of pulmonary embolus and deep vein thrombosis
- continue Eliquis
spinal stenosis.
CODE STATUS: Full code
DVT prophylaxis: Eliquis
General: No Apparent Distress
HEENT: Normocephalic and Atraumatic
Respiratory: Negative Wheezes
Cardiac: Regular Rhythm and S1/S2
GI: Soft and Nontender
Genito-urinary: No Costovertebral Tender
Musculoskeletal: Other (L AKA, RLE venous stasis with superimposed cellulitis)
Neuro: AO x 3
Psych: Calm
Anticipated Discharge: Today
Subjective/Interval History
-
Date of Service: March 21, 2024
Denies pain
Objective Data
-
Labs:
Laboratory Results
03/21/24
05:25
WBC 8.2
Hgb 12.2
Hct 39.2
Plt Count 341
Sodium 136
Potassium 4.3
Chloride 97 L
Carbon Dioxide 37 H
BUN 10
Creatinine 0.5 L
Glucose 126 H
Calcium 8.3 L
Vital Signs:
Vital Signs
Temp Pulse Resp BP Pulse Ox
98.2 F 81 16 105/65 97
03/21/24 07:43 03/21/24 07:56 03/21/24 07:56 03/21/24 07:43 03/21/24 07:56
I&O
03/20/24 03/21/24 03/22/24
06:59 06:59 06:59
Intake Total 990 / 990 280 / 280
Output Total 150 / 150
Balance 990 / 990 130 / 130
--- NOTE | 2024-03-21 10:04 | W.PN.ID1 ---
Date of Service
Date of Service: March 21, 2024
Today's Communication
Can dc home.
See below.
Assessment / Plan
# Acute RLE cellulitis, no improvement
# Chronic RLE venous stasis wounds
- Wound cx MDR-Pseudomonas
- Continue cipro 750mg po bid through 04/02/24
- QTc 450
- Discussed potential tendinitis/rupture, C. diff associated with cipro.
-If taking antacid, iron, zinc, magnesium, aluminum, calcium, or sucralfate, take these products 6 hours before or 2 hours after ciprofloxacin.
- Can dc home.
# Abx-associated diarrhea, resolved
- Continue lactobacillus
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
Hx CVA/TIA
HTN
DVT/PE
Afib
HFpEF
hypothyroidism
partial thyroidectomy
Right LE chronic venous stasis wounds
BMI 38
L TKR
R shoulder replacement
endometriosis s/p hysterectomy, colon resection
L AKA
cervical and lumbar fusion
Restless leg syndrome
Chief Complaint
-: Cellulitis
Subjective / Review of Systems
Leg pain much improved.
Vital Signs / Physical Exam
Vital Signs
Vital Signs
Temp Pulse Resp BP Pulse Ox
98.2 F 81 16 105/65 97
03/21/24 07:43 03/21/24 07:56 03/21/24 07:56 03/21/24 07:43 03/21/24 07:56
Physical Exam
Constitutional: No Acute Distress
Eyes: No Conjunctival Hemorrhage
Cardiovascular: Regular Rate and S1/S2
Pulmonary: Clear
Gastrointestinal: Soft, Non Tender and Non Distended
Extremities: Edema (BLE)
Wound: Other (RLE removed dressing: Improvement of bright erythema dorsum of foot up the daniels with circumferential wound. + thick yellow-green drainage on gauze)
Neurological: AO x 3
Objective Data
Lab Data
Lab Results
03/21/24 05:25
03/21/24 05:25
Estimated Creat Clear 69 ml/min 03/21/24 05:25
Total Bilirubin 0.5 mg/dl (0.2-1.3) 03/17/24 15:09
AST 22 U/L (14-36) 03/17/24 15:09
ALT 16 U/L (0-35) 03/17/24 15:09
Alkaline Phosphatase 91 U/L (38-126) 03/17/24 15:09
Most recent labs reviewed.
Micro Results:
03/17/24 15:10 Blood Culture - Preliminary
Blood/Venous No Growth in 72 hours- Final report to follow
03/17/24 15:09 Blood Culture - Preliminary
Blood/Venous No Growth in 72 hours- Final report to follow
03/18/24 11:51 Wound Culture - Final
Ankle - Right Pseudomonas aeruginosa
Gram Stain - Final
SPEC #: [id number] DENI: 03/18/24-1150 STATUS: COMP REQ #: [id number]
RECD: 03/18/24-[address]: Belem Martines DO
SOURCE: [facility] ENTR: 03/18/24-[address] [facility] [address]: Ranjit Roche MD
SPDESC: Right Stef Flores MD
Annalise Becker MD
ORDERED: Wound/Other
QUERIES: Comment RLE
Date Specimen was Collected 03/18/24
Time Specimen was Collected 1148
Procedure Result Verified
Wound/abscess/other Cult Final 03/20/24-0843
Few Pseudomonas aeruginosa
Moderate Diptheroids
Organism 1 Pseudomonas aeruginosa
1. Pseudomonas aeruginosa
M.I.C. RX
--------- ---
Aztreonam >16 R
Cefepime 8 S
Ceftazidime >16 R
Ciprofloxacin 0.5 S
Meropenem 4 I
Piperacillin/Tazobactam >64 R
Tobramycin <=2 S
Gram Stain Final 03/20/24-08
Moderate WBC
Rare Gram Negative Rods
Care Review
Plan reviewed with: Physician (Dr. Connors)
--- NOTE | 2024-03-21 10:18 | W.DCSUMMARY ---
Discharge Summary
Discharge Data
Date of Admission: 03/17/24
Date of Discharge: 03/21/24
-
Pending Results: No
Hospital Course
83-year-old female with past medical history of venous stasis dermatitis, GERD, paroxysmal atrial fibrillation, hyperlipidemia, hypertension, restless leg syndrome, left lower extremity amputation for MRSA infection, CVA, PE and DVT on Eliquis,
spinal stenosis came to the hospital with worsening right lower extremity cellulitis. Patient has been following up at wound care center and was instructed to follow-up with them outpatient. Initially she was started on IV antibiotic which was
later transitioned to oral antibiotics. Patient was seen by infectious disease throughout hospitalization. Her wound culture was consistent with Pseudomonas. Once her symptoms continue to improve, she was then discharged home with instructions to
follow-up with all her physicians outpatient.
Discharge Plan
-
Patient Disposition: Home with Home Care
Discharge Diagnosis/Procedures: Right lower extremity cellulitis
Hyponatremia
Hyperkalemia
Diet: As tolerated
Activity: As tolerated
Driving Restrictions: As prior to admission
Bathing Restrictions: None
Activity Restrictions/Additional Instructions:
If taking antacid, iron, zinc, magnesium, aluminum, calcium, or sucralfate, take these products 6 hours before or 2 hours after ciprofloxacin.
Wound Care Instructions
R leg: clean with saline, xeroform, abd pads and kerlix daily and prn drainage.
R dorsal foot: clean with saline, adaptic and silicone foam change q other day and prn drainage.
Follow up at wound care center call for an appointment.
Follow-up in wound care center outpatient
Referrals:
Stef Flores MD [Family Provider] - in less than 1 week
Annalise Becker MD [Active] -
Prescriptions:
New
miconazole nitrate [Miconazorb AF] 2 % Powder
1 applic topical BID Qty: 85 0RF
acetaminophen 325 mg Tablet
650 mg PO Q4HPRN PRN (Reason: headache,mild pain,fever>100.4) Qty: 0 0RF
lidocaine 4 % Adhesive Patch,Medicated
1 patch topical DAILY Qty: 30 0RF
Lactobac/Bifidobac [Visbiome]
2 cap PO DAILY Qty: 0 0RF
ciprofloxacin HCl 750 mg tablet
750 mg PO BID Qty: 26 0RF
Continued
atorvastatin [Lipitor] 40 MG tablet
40 mg PO HS
ropinirole 2 MG tablet
8 mg PO TID
Eliquis 5 MG tablet
5 mg PO BID
pregabalin 150 mg capsule
150 mg PO BID
Patient Comments:
09/04/2023: last filled 07/27/23, 180 tabs for 90 days from [facility]#[id number]
omeprazole 40 mg capsule,delayed release(DR/EC)
40 mg PO DAILY
nadolol 40 mg tablet
20 mg PO HS
albuterol sulfate 90 mcg/actuation HFA aerosol inhaler
2 puff inhalation R Q4HPRN PRN (Reason: sob wheezing)
tramadol 50 mg tablet
50 mg PO Q8HPRN MDD 8 tabs/24hrs PRN (Reason: moderate pain)
Pulmicort Flexhaler 90 mcg/actuation Aerosol Powdr Breath Activated
1 inh INHALATION R BIDPRN PRN (Reason: sob/wheezing)
Discharge Orders:
Discharge Patient (As Directed); Ordered 03/21/24
Ordered By: Dante Connors
Discharge Date and Time
Discharge Date/Time: 03/21/24 12:44
Print Language: LATVIAN
[2024-03-21] MEDS: DESENEX/MITRAZOL/ZEASORB 1 APPLIC TOPICAL (10:26)
[2024-03-21 12:12] VITALS: BP 132/58
--- NOTE | 2024-03-21 12:25 | CM ---
Plan is for home with [facility].
Plan; Home with [facility]
== END 2024-03-21 12:44 | disposition home health service (06) | DRG 603 ==
LOC: 2 NORTH 23:51
PROVIDERS: Internal Medicine; Physician Assistant; ADMITTING PHYSICIAN Internal Medicine; ATTENDING PHYSICIAN Internal Medicine; CONSULT PHYSICIAN Internal Medicine Infectious Disease; EMERGENCY PHYSICIAN Emergency Medicine; FAMILY PHYSICIAN Family Medicine
DX: L03.115 Cellulitis of right lower limb (principal); I50.32 Chronic diastolic (congestive) heart failure; E87.1 Hypo-osmolality and hyponatremia; I48.0 Paroxysmal atrial fibrillation; E78.00 Pure hypercholesterolemia, unspecified; E87.5 Hyperkalemia; I11.0 Hypertensive heart disease with heart failure; E89.0 Postprocedural hypothyroidism; B96.5 Pseudomonas (aeruginosa) (mallei) (pseudomallei) as the cause of diseases classified elsewhere; G25.81 Restless legs syndrome; G62.9 Polyneuropathy, unspecified; K21.9 Gastro-esophageal reflux disease without esophagitis; I87.2 Venous insufficiency (chronic) (peripheral); Z88.0 Allergy status to penicillin; Z88.1 Allergy status to other antibiotic agents; Z86.14 Personal history of Methicillin resistant Staphylococcus aureus infection; Z79.899 Other long term (current) drug therapy; Z79.01 Long term (current) use of anticoagulants; Z89.612 Acquired absence of left leg above knee; Z96.651 Presence of right artificial knee joint; Z96.611 Presence of right artificial shoulder joint; Z86.73 Personal history of transient ischemic attack (TIA), and cerebral infarction without residual deficits; Z86.711 Personal history of pulmonary embolism; Z86.718 Personal history of other venous thrombosis and embolism
CPT/HCPCS: 73590; 73630; 80048; 80053; 85025; 85027; 87040; 87070; 87071; 87186; 87205; 93005; 94640; 97161; 97166; 97530; 99213; 99285

== ENCOUNTER → 2024-03-25 10:44 | Outpatient (REF) | payer MEDICARE, BC, SELFPAY | LOC: WOUND 10:44 | PROVIDERS: ATTENDING PHYSICIAN Surgery; FAMILY PHYSICIAN Family Medicine | DX: I87.311 Chronic venous hypertension (idiopathic) with ulcer of right lower extremity (principal); L97.212 Non-pressure chronic ulcer of right calf with fat layer exposed; I87.2 Venous insufficiency (chronic) (peripheral); I73.9 Peripheral vascular disease, unspecified; I48.0 Paroxysmal atrial fibrillation; Z89.612 Acquired absence of left leg above knee | CPT/HCPCS: 99213 ==

== ENCOUNTER → 2024-04-01 11:20 | Outpatient (REF) | payer MEDICARE, BC, SELFPAY | LOC: WOUND 11:20 | PROVIDERS: ATTENDING PHYSICIAN Surgery; FAMILY PHYSICIAN Family Medicine | DX: I87.311 Chronic venous hypertension (idiopathic) with ulcer of right lower extremity (principal); L97.212 Non-pressure chronic ulcer of right calf with fat layer exposed; S90.111A Contusion of right great toe without damage to nail, initial encounter; I87.2 Venous insufficiency (chronic) (peripheral); I73.9 Peripheral vascular disease, unspecified; I48.0 Paroxysmal atrial fibrillation; Z89.612 Acquired absence of left leg above knee; W22.03XA Walked into furniture, initial encounter | CPT/HCPCS: G0463; 99213 ==

== ENCOUNTER 2024-04-01 12:07 | Emergency (ER) | payer MEDICARE, BC, SELFPAY ==
[2024-04-01 12:14] VITALS: BP 143/80
--- NOTE | 2024-04-01 13:49 | ED.GENMED ---
History of Present Illness
General
Chief Complaint: Musculo-Skeletal Complaint
Time Seen by Provider: 04/01/24 13:32
History of Present Illness
History of Present Illness:
83-year-old female presents to the emergency department for evaluation of right great toe pain. She was at wound care today for reevaluation of her right lower leg wound, notes that she had stubbed her toe on a chair last night, came to the ED
however left without treatment due to the wait time. sports specialist also requested infectious disease consultation for possible need for IV antibiotics
Past History
Past History
ED Past Medical History: Arrthythmia, HTN, Hypercholesterolemia, Other (DVT) and Other (DVT, cervical disc disease, osteoarthritis, MRSA, DVT/PE); Negative IDDM
ED Past Surgical History: Bowel resection, Gynecological, Orthopedic (Cervical-lumbar fusion, right shoulder replacement 2014, left knee replacement) and Other (Partial thyroidectomy. Multiple dental procedures)
Social History
Tobacco: Non-smoker
Alcohol: None
Drug: None
Personal:
Living: with family
Employment: Retired
Family History
Family History: Hypertension
Review of Systems
Review of Systems
Allergies reviewed?: Yes
All Other Systems: ROS reviewed and negative except as documented in HPI and ROS
Phy Exam
Physical Exam
Physical Exam:
GEN: Well appearing, NAD, WDWN
HEENT: Oral mucosa moist, no scleral icterus
Cardiac: Regular rate
Lung: No respiratory distress, no tachypnea
MSK: Status post left AKA. Right lower extremity has a severe chronic wound involving essentially the entirety of the lower leg circumferentially. There is swelling and ecchymosis to the right great toe with a laceration extending from the medial
IP joint to the plantar MCP. Partial thickness. Significant tissue edema noted
Skin: Good color, no pallor or jaundice, no rashes
Neuro: AO x3, moves all extremities freely
Psych: Calm, cooperative
Course
Orders/Labs/Results
Orders:
Orders
04/01/24 12:18
CR Foot - Right Min 3 Views Urgent
Comment: 1st big toe primary Wound care doctor want whole f
Reason For Exam: pain/injury
04/01/24 13:56
Complete Blood Count/With Diff Urgent
Comprehensive Metabolic Panel Urgent
04/01/24 14:08
INFECTIOUS DISEASE CONSULT Routine
Consulting Provider: Annalise Beckre
Was physician already notified: Yes
Abnormal Lab Results
04/01/24
13:56
Hgb 11.6 L g/dL
(12.0-16.0)
MCH 26.9 L pg
(27.0-31.0)
MCHC 30.8 L g/dL
(33.0-37.0)
RDW 16.5 H %
(11.5-14.5)
Carbon Dioxide 33 H mmol/L
(22-30)
Glucose 144 H mg/dl
(70-99)
Total Protein 5.5 L g/dl
(6.3-8.2)
Albumin 3.0 L g/dl
(3.5-5.0)
04/01/24 13:56
04/01/24 13:56
Vital Signs
Initial and Last Documented VS:
Initial Vital Signs
Temp Pulse Resp BP Pulse Ox
97.4 F 97 18 143/80 96
04/01/24 12:14 04/01/24 12:14 04/01/24 12:14 04/01/24 12:14 04/01/24 12:14
Last Documented Vital Signs
Temp Pulse Resp BP Pulse Ox
97.4 F 98 16 125/62 93
04/01/24 12:14 04/01/24 14:02 04/01/24 14:02 04/01/24 17:54 02/18/25 17:40
Procedures
Laceration Closure
R great toe:
Status of Wound: clean
Size of Wound in cm: 3
Description of Wound Edges: ragged
Preparation: cleaned with saline
Anesthesia: 1% Lidocaine
Wound exploration: explored to base- no FB
Type of Closure: single layer closure
Skin Closure Material: 5-0 nylon
Number of sutures: 4
MDM/Problems Addressed
MDM/Problems Addressed:
Very prolonged ED stay due to multiple conflicting stories from infectious disease as well as wound care. Initially infectious disease and for me that this patient had no signs of active infection and they felt as though there was no need for
antibiotics however culinary specialist felt otherwise. Before initiating IV antibiotics given that the patient is stable we consulted infectious disease. Infectious disease agrees there is no need for antibiotics in relation to the chronic leg
wound, rather the acute wound of the right great toe should be prophylaxed with cephalexin. Sutures were inserted for minimal closure however the wound is nearly 24 hours old at this point and there is so much edema to the toe that attempting
complete primary closure would likely result in tissue necrosis and thus the wound will require healing by secondary intent. Educated patient and her caregiver on supportive care
*Critical Care Note
Total Time (30-74mins, 75-104mins- exclusive of procedures): Not Applicable
ED Attending Note
-
Portions of this chart may have been created with voice recognition software.� Occasional wrong word or��sound alike� substitutions may have occurred due to the inherent limitations of voice recognition software.
Discharge Plan
Departure
Patient Disposition: Home (Routine Discharge)
Date of Disposition: 04/01/24
Time of Disposition: 16:56
Patient with high blood pressure during this ER visit?: No
Discharge Problem:
Contusion of great toe, right, Laceration of great toe
Instructions: Wound Care (DC)
Prescriptions:
New
cephalexin 500 mg capsule
500 mg PO Q8H Qty: 21 0RF
oxycodone-acetaminophen [Percocet] 5-325 mg tablet
1 tab PO Q6HPRN PRN (Reason: pain) Qty: 10 0RF
No Action
atorvastatin [Lipitor] 40 MG tablet
40 mg PO HS
ropinirole 2 MG tablet
8 mg PO TID
Eliquis 5 MG tablet
5 mg PO BID
pregabalin 150 mg capsule
150 mg PO BID
Patient Comments:
09/04/2023: last filled 07/27/23, 180 tabs for 90 days from [facility]#[id number]
omeprazole 40 mg capsule,delayed release(DR/EC)
40 mg PO DAILY
nadolol 40 mg tablet
20 mg PO HS
albuterol sulfate 90 mcg/actuation HFA aerosol inhaler
2 puff inhalation R Q4HPRN PRN (Reason: sob wheezing)
tramadol 50 mg tablet
50 mg PO Q8HPRN MDD 8 tabs/24hrs PRN (Reason: moderate pain)
Pulmicort Flexhaler 90 mcg/actuation Aerosol Powdr Breath Activated
1 inh INHALATION R BIDPRN PRN (Reason: sob/wheezing)
miconazole nitrate [Miconazorb AF] 2 % Powder
1 applic topical BID Qty: 85 0RF
acetaminophen 325 mg Tablet
650 mg PO Q4HPRN PRN (Reason: headache,mild pain,fever>100.4) Qty: 0 0RF
lidocaine 4 % Adhesive Patch,Medicated
1 patch topical DAILY Qty: 30 0RF
Lactobac/Bifidobac [Visbiome]
2 cap PO DAILY Qty: 0 0RF
ciprofloxacin HCl 750 mg tablet
750 mg PO BID Qty: 26 0RF
Referrals:
UNKNOWN,NO INTERVIEW [Family Provider] -
Activity Restrictions/Additional Instructions:
Daily soap and water to the wound, follow-up with wound care in 3 days. There were 3 sutures placed however the wound is much too swollen to be able to close fully
Interventions
Interventions:
*Risk Screen - Suicide Last Done: 04/01/24 12:14
*General Assessment Last Done: 04/01/24 18:10
*Neglect/Abuse Screening Last Done: 04/01/24 12:14
ED- Fall Risk Assessment Last Done: 04/01/24 14:04
*ED COVID-19 Vaccine History Last Done: 04/01/24 12:14
*Nursing Disposition Last Done: 04/01/24 18:10
ED-Musculoskeletal Assessment Last Done: 04/01/24 13:10
ED-Skin Assessment Last Done: 04/01/24 14:02
Discharge Date and Time
Discharge Date/Time: 04/01/24 18:12
Print Language: DIVEHI
[2024-04-01 14:02] VITALS: BP 147/88
[2024-04-01 14:16] LABS: % Basophils 0.6 % (0-2); % Eosinophils 4.9 % (0-6); % Immature Granulocytes 0.4 % (0-0.5); % Lymphocytes 27.9 % (20.5-51.1); % Monocytes 6.1 % (1.7-9.3); % Neutrophils 60.1 % (42.2-75.2); Absolute Basophils 0.1 10^3/uL (0-0.2); Absolute Eosinophils 0.4 10^3/uL (0-0.7); Absolute Lymphocytes 2.3 10^3/uL (1.2-3.4); Absolute Monocytes 0.5 10^3/uL (0.1-0.6); Absolute Neutrophils 4.9 10^3/uL (1.4-6.5); Hematocrit 37.7 % (37.0-47.0); Hemoglobin 11.6 g/dL (12.0-16.0); Mean Corp Hgb Conc. 30.8 g/dL (33.0-37.0); Mean Corpuscular Hgb 26.9 pg (27.0-31.0); Mean Corpuscular Volume 87.3 fL (81.0-99.0); Mean Platelet Volume 9.7 fL (7.4-10.4); Nucleated Red Blood Cells % 0 %; Platelet Count 267 10^3/uL (130-400); Red Blood Cell Count 4.32 10^6/uL (4.20-5.40); Red Cell Dist. Width 16.5 % (11.5-14.5); White Blood Cell Count 8.2 10^3/uL (4.8-10.8)
[2024-04-01 14:27] LABS: ALT (SGPT) 15 U/L (0-35); AST (SGOT) 19 U/L (14-36); Alkaline Phosphatase 81 U/L (38-126); Blood Urea Nitrogen 15 mg/dl (7-17); Calcium 8.4 mg/dl (8.4-10.2); Carbon Dioxide 33 mmol/L (22-30); Chloride 100 mmol/L (98-107); Glucose 144 mg/dl (70-99); Potassium 4.2 mmol/L (3.5-5.1); Sodium 137 mmol/L (135-145); Total Bilirubin 0.3 mg/dl (0.2-1.3); Total Protein 5.5 g/dl (6.3-8.2); eGFR > 60.00
--- NOTE | 2024-04-01 17:26 | CON.ID ---
Consultation
-
Date/Time Consultation Requested: 04/01/2024 1358
Date/Time Consultation Performed: 04/01/2024 1615
Requesting Provider: Dr. Cadet
Performing Provider: Dr. Mckee
Reason for Consultation: Right lower extremity wounds
Chief Complaint / Past History
History of Present Illness
Abi Thompson is an 83-year-old female being evaluated at the request of Dr. Cadet regarding history of right leg wounds and new right hallux swelling. History is obtained from chart review, along with patient interview. Additional history was
obtained from the patient's health assistant who is at the bedside.
The patient has a longstanding history of venous insufficiency of the right leg, with significant ulcerations. She is well-known to the Infectious Diseases service, having been seen on multiple prior admissions, and is routinely followed in the
outpatient setting. Additionally, she is followed in the Wound Care Center here at [facility] and was there today for routine evaluation. The patient recently was in a different motorized wheelchair, and evidently last night struck her
right hallux on a cabinet, causing some bleeding and oozing. Today, when she was in the wound care center there was concern for the swelling of the toe, and she was sent to the emergency room for further evaluation.
In regards to the chronic wounds of the lower extremity, they overall have been been stable with local care.
Past History
Additional Past Medical History:
Hx CVA/TIA
HTN
DVT/PE
Afib
HFpEF
hypothyroidism
partial thyroidectomy
Right LE chronic venous stasis wounds
BMI 38
L TKR
R shoulder replacement
endometriosis s/p hysterectomy, colon resection
L AKA
cervical and lumbar fusion
Restless leg syndrome
Allergy History:
adhesive [Adhesive] Allergy (Verified 03/31/24 19:37)
Itching/REDNESS
Aminoglycosides Allergy (Verified 03/31/24 19:37)
Pharmacy to Review
azithromycin [Azithromycin] Allergy (Verified 03/31/24 19:37)
patient denies
celecoxib [From Celebrex] Allergy (Verified 03/31/24 19:37)
started to break out with sores
doxycycline Allergy (Verified 03/31/24 19:37)
Unknown
erythromycin base Allergy (Verified 03/31/24 19:37)
CHEST PAIN
furosemide [From Lasix] Allergy (Verified 03/31/24 19:37)
'just doesn't feel good' - takes bumetanide at home 09/04/23
kanamycin Allergy (Verified 03/31/24 19:37)
Unknown
Penicillins Allergy (Verified 03/31/24 19:37)
pt denies; says had in 02/24
ciprofloxacin [From Cipro] Adverse Reaction (Verified 04/01/24 12:18)
dizziness
Medications Reviewed: Yes
Current Antibiotics:
None
Social History
Tobacco: Non-Smoker
Alcohol: None
Drug: None
Personal:
Family History
Family History: Not Pertinent
Review of Systems
Vital Signs
Temp Pulse Resp BP Pulse Ox
97.4 F 98 16 147/88 92
04/01/24 12:14 04/01/24 14:02 04/01/24 14:02 04/01/24 14:02 04/01/24 16:30
Physical Exam
Physical Exam
Constitutional: No Acute Distress, Comfortable, Chronically Ill and Non-toxic
Eyes: No Conjunctival Hemorrhage and Sclera Anicteric
Cardiovascular: Regular Rate and S1/S2; Negative S3/S4
Pulmonary: Clear
Gastrointestinal: Soft, Non Tender, Non Distended and Normal Bowel Sounds
Extremities: Edema (RLE 2+)
Wound: Other (Right lower extremity with multiple venous stasis ulcerations in various degrees of healing. Some serous drainage. No significant malodor. Right toe with 2 cm superficial medial laceration )
Neurological: AO x 3
Lab / Diagnostic Study Results
04/01/24 13:56
04/01/24 13:56
Abs Immat Gran (auto) 0.0 10^3/uL (0-0.05) 04/01/24 13:56
Absolute Neuts (auto) 4.9 10^3/uL (1.4-6.5) 04/01/24 13:56
Absolute Lymphs (auto) 2.3 10^3/uL (1.2-3.4) 04/01/24 13:56
Absolute Monos (auto) 0.5 10^3/uL (0.1-0.6) 04/01/24 13:56
Absolute Basos (auto) 0.1 10^3/uL (0-0.2) 04/01/24 13:56
Immature Gran % 0.4 % (0-0.5) 04/01/24 13:56
Neutrophils % 60.1 % (42.2-75.2) 04/01/24 13:56
Lymphocytes % 27.9 % (20.5-51.1) 04/01/24 13:56
Monocytes % 6.1 % (1.7-9.3) 04/01/24 13:56
Eosinophils % 4.9 % (0-6) 04/01/24 13:56
Basophils % 0.6 % (0-2) 04/01/24 13:56
Microbiology Results
Imaging:
04/01/2024 X-ray right foot: Osteopenia, but no fracture or dislocation. There is metatarsus adductus primus deformity with associated hallux valgus and bunion as well as joint space narrowing indicating degenerative osteoarthritis at the
metatarsophalangeal joint of the great toe
Assessment / Plan
Right hallux swelling s/p trauma (struck on a cabinet while in wheelchair).
Superficial laceration.
Toe erythema; ?cellulitis
Chronic venous stasis ulcerations of right lower extremity; stable
Hx CVA/TIA
HTN
DVT/PE
Afib
HFpEF
hypothyroidism
partial thyroidectomy
Right LE chronic venous stasis wounds
BMI 38
Recommendations:
At present, I see little in the way of acute infection. The right lower extremity venous stasis wounds appear stable, and overall appear markedly improved in comparison to several months ago.
Home health aide instructed to continue with her current therapy, including ABD covered by Zhang, with Jeovanny wrap applied over top.
No evidence of fracture of the right hallux on imaging. Toe is quite edematous, likely secondary to the trauma, though.
Will defer to ER regarding care of the superficial laceration.
May consider short course of Keflex in case there is a component of cellulitis.
Toe should be monitored closely for any worsening, which may prompt evaluation by Podiatry.
Care Review
Plan reviewed with: Physician (ER)
.

Total time spent today was 62 minutes, which includes preparation for the visit, gathering pertinent data, patient interview and examination, reviewing pertinent studies including laboratory evaluations, microbiology, radiology, hospital records,
specialist consultation, along with counseling and coordination of care.
[2024-04-01 17:54] VITALS: BP 125/62
== END 2024-04-01 18:12 | disposition home or self-care (01) ==
LOC: EMR 12:07
PROVIDERS: Physician Assistant; EMERGENCY PHYSICIAN Emergency Medicine; OTHER PHYSICIAN Internal Medicine Infectious Disease
DX: S90.111A Contusion of right great toe without damage to nail, initial encounter (principal); S91.111A Laceration without foreign body of right great toe without damage to nail, initial encounter; W22.09XA Striking against other stationary object, initial encounter; I87.2 Venous insufficiency (chronic) (peripheral); M20.11 Hallux valgus (acquired), right foot; M21.611 Bunion of right foot; I83.018 Varicose veins of right lower extremity with ulcer other part of lower leg; L97.819 Non-pressure chronic ulcer of other part of right lower leg with unspecified severity; I87.8 Other specified disorders of veins; M85.871 Other specified disorders of bone density and structure, right ankle and foot; I11.0 Hypertensive heart disease with heart failure; I50.32 Chronic diastolic (congestive) heart failure; E03.9 Hypothyroidism, unspecified; I48.91 Unspecified atrial fibrillation; G25.81 Restless legs syndrome; E78.00 Pure hypercholesterolemia, unspecified; Z68.38 Body mass index [BMI] 38.0-38.9, adult; Z79.01 Long term (current) use of anticoagulants; Z86.718 Personal history of other venous thrombosis and embolism; Z86.711 Personal history of pulmonary embolism; Z86.73 Personal history of transient ischemic attack (TIA), and cerebral infarction without residual deficits; Z96.611 Presence of right artificial shoulder joint; Z89.612 Acquired absence of left leg above knee; Z98.1 Arthrodesis status; M43.22 Fusion of spine, cervical region; Z88.8 Allergy status to other drugs, medicaments and biological substances; Z88.1 Allergy status to other antibiotic agents; Z88.0 Allergy status to penicillin; Z88.6 Allergy status to analgesic agent
CPT/HCPCS: 99283; 73630; 80053; 85025; 99213

== ENCOUNTER → 2024-04-04 12:27 | Outpatient (REF) | payer MEDICARE, BC, SELFPAY | LOC: WOUND 12:27 | PROVIDERS: ATTENDING PHYSICIAN Surgery; FAMILY PHYSICIAN Family Medicine | DX: L97.212 Non-pressure chronic ulcer of right calf with fat layer exposed (principal); I87.311 Chronic venous hypertension (idiopathic) with ulcer of right lower extremity; I87.2 Venous insufficiency (chronic) (peripheral); I73.9 Peripheral vascular disease, unspecified; I48.0 Paroxysmal atrial fibrillation; Z89.612 Acquired absence of left leg above knee; S91.221A Laceration with foreign body of right great toe with damage to nail, initial encounter; X58.XXXA Exposure to other specified factors, initial encounter | CPT/HCPCS: 99213 ==

== ENCOUNTER → 2024-04-18 11:07 | Outpatient (REF) | payer MEDICARE, BC, SELFPAY | LOC: WOUND 11:07 | PROVIDERS: ATTENDING PHYSICIAN Surgery; FAMILY PHYSICIAN Family Medicine | DX: I87.311 Chronic venous hypertension (idiopathic) with ulcer of right lower extremity (principal); L97.212 Non-pressure chronic ulcer of right calf with fat layer exposed; S91.221A Laceration with foreign body of right great toe with damage to nail, initial encounter; I87.2 Venous insufficiency (chronic) (peripheral); I73.9 Peripheral vascular disease, unspecified; Z89.612 Acquired absence of left leg above knee; I48.0 Paroxysmal atrial fibrillation; X58.XXXA Exposure to other specified factors, initial encounter | CPT/HCPCS: 99213 ==

== ENCOUNTER → 2024-04-24 11:18 | Outpatient (REF) | payer MEDICARE, BC, SELFPAY | LOC: WOUND 11:18 | PROVIDERS: ATTENDING PHYSICIAN Surgery; FAMILY PHYSICIAN Family Medicine | DX: I87.311 Chronic venous hypertension (idiopathic) with ulcer of right lower extremity (principal); L97.212 Non-pressure chronic ulcer of right calf with fat layer exposed; S91.221A Laceration with foreign body of right great toe with damage to nail, initial encounter; I87.2 Venous insufficiency (chronic) (peripheral); I73.9 Peripheral vascular disease, unspecified; I48.0 Paroxysmal atrial fibrillation; Z89.612 Acquired absence of left leg above knee; X58.XXXA Exposure to other specified factors, initial encounter | CPT/HCPCS: 99213 ==

== ENCOUNTER → 2024-05-01 11:22 | Outpatient (REF) | payer MEDICARE, BC, SELFPAY | LOC: WOUND 11:22 | PROVIDERS: ATTENDING PHYSICIAN Surgery; FAMILY PHYSICIAN Family Medicine | DX: I87.311 Chronic venous hypertension (idiopathic) with ulcer of right lower extremity (principal); L97.212 Non-pressure chronic ulcer of right calf with fat layer exposed; S91.221A Laceration with foreign body of right great toe with damage to nail, initial encounter; I87.2 Venous insufficiency (chronic) (peripheral); I73.9 Peripheral vascular disease, unspecified; I48.0 Paroxysmal atrial fibrillation; X58.XXXA Exposure to other specified factors, initial encounter; Z89.612 Acquired absence of left leg above knee | CPT/HCPCS: 99213 ==

== ENCOUNTER → 2024-05-08 12:45 | Outpatient (REF) | payer MEDICARE, BC, SELFPAY | LOC: WOUND 12:45 | PROVIDERS: ATTENDING PHYSICIAN Surgery; FAMILY PHYSICIAN Family Medicine | DX: I87.311 Chronic venous hypertension (idiopathic) with ulcer of right lower extremity (principal); L97.212 Non-pressure chronic ulcer of right calf with fat layer exposed; S91.221A Laceration with foreign body of right great toe with damage to nail, initial encounter; I87.2 Venous insufficiency (chronic) (peripheral); I73.9 Peripheral vascular disease, unspecified; I48.0 Paroxysmal atrial fibrillation; Z89.612 Acquired absence of left leg above knee; X58.XXXA Exposure to other specified factors, initial encounter | CPT/HCPCS: 99213 ==

== ENCOUNTER → 2024-05-22 13:18 | Outpatient (REF) | payer MEDICARE, BC, SELFPAY | LOC: WOUND 13:18 | PROVIDERS: ATTENDING PHYSICIAN Surgery | DX: I87.311 Chronic venous hypertension (idiopathic) with ulcer of right lower extremity (principal); L97.212 Non-pressure chronic ulcer of right calf with fat layer exposed; S91.221A Laceration with foreign body of right great toe with damage to nail, initial encounter; I87.2 Venous insufficiency (chronic) (peripheral); I73.9 Peripheral vascular disease, unspecified; I48.0 Paroxysmal atrial fibrillation; Z89.612 Acquired absence of left leg above knee; X58.XXXA Exposure to other specified factors, initial encounter | CPT/HCPCS: 99213 ==

== ENCOUNTER 2024-06-05 15:51 | Inpatient (IN) | payer MEDICARE, BC, SELFPAY ==
[2024-06-05 11:43] VITALS: BP 110/60
[2024-06-05 13:06] VITALS: BP 128/59
[2024-06-05 13:07] VITALS: BMI 30.7
--- NOTE | 2024-06-05 13:16 | ED.GENMED ---
History of Present Illness
General
Chief Complaint: Skin Problem
Source: patient and care connector
Exam Limitations: none
Time Seen by Provider: 06/05/24 12:57
History of Present Illness
History of Present Illness:
83-year-old female complaining of change in skin color increased drainage and change in color of drainage to the right lower extremity. Progressive over days. Denies new pain fever chills or other systemic symptoms. History of same in the past.
Followed at wound care center.
Past History
Past History
ED Past Medical History: Arrthythmia, HTN, Hypercholesterolemia, Other (DVT) and Other (DVT, cervical disc disease, osteoarthritis, MRSA, DVT/PE); Negative IDDM
ED Past Surgical History: Bowel resection, Gynecological, Orthopedic (Cervical-lumbar fusion, right shoulder replacement 2014, left knee replacement) and Other (Partial thyroidectomy. Multiple dental procedures)
Social History
Tobacco: Non-smoker
Alcohol: None
Drug: None
Personal:
Living: with family
Employment: Retired
Family History
Family History: Hypertension
Review of Systems
Review of Systems
All Other Systems: Not applicable
Constitutional: Denies fever or chills
Respiratory: Reports no symptoms
Phy Exam
Physical Exam
Physical Exam:
GENERAL: Alert and oriented in no apparent distress
EYE: Orbits normal.
NECK: Supple, no significant adenopathy.
ENT: Pharynx without erythema
CARDIAC: Regular rate and rhythm without any obvious murmurs.
LUNGS: Clear breath sounds,normal
ABDOMEN: Soft, without focal tenderness or distention
NEUROLOGICAL: Alert and oriented , grossly non-focal
SKIN: Warm and dry
MUSCULOSKELETAL: Left AKA. Right leg with significant erythema open wound to the diffuse right lower leg with drainage and cellulitic appearance to the foot.
PSYCH: Normal and appropriate interaction.
Course
Orders/Labs/Results
Orders:
Orders
06/05/24 13:12
IV Insert/Care/Rem.- Treatment PRN
06/05/24 13:13
Piperacillin/Tazo 3.375 Gram [Zosyn] 3.375 gram in 50 ml IV NOW
06/05/24 13:19
Cefepime HCl [Maxipime] 2,000 mg IV NOW STA
06/05/24 13:21
Vancomycin [Vancocin] 2,000 mg 0.9% Sodium Chloride 500 ml [Nss] 500 ml IV NOW
06/05/24 13:31
Basic Metabolic Panel Urgent
Complete Blood Count/With Diff Urgent
06/05/24 13:34
Sterile Water [Sterile Water For Injection] 10 ml .ROUTE .STK-MED ONE
Abnormal Lab Results
06/05/24
13:31
MCH 25.6 L pg
(27.0-31.0)
MCHC 29.8 L g/dL
(33.0-37.0)
RDW 16.0 H %
(11.5-14.5)
Absolute Neuts (auto) 6.8 H 10^3/uL
(1.4-6.5)
Absolute Monos (auto) 0.8 H 10^3/uL
(0.1-0.6)
Carbon Dioxide 34 H mmol/L
(22-30)
Glucose 108 H mg/dl
(70-99)
06/05/24 13:31
06/05/24 13:31
Vital Signs
Initial and Last Documented VS:
Initial Vital Signs
Temp Pulse Resp BP Pulse Ox
97.9 F 82 18 110/60 94
06/05/24 11:43 06/05/24 11:43 06/05/24 11:43 06/05/24 11:43 06/05/24 11:43
Last Documented Vital Signs
Temp Pulse Resp BP Pulse Ox
97.9 F 77 18 128/59 94
06/05/24 11:43 06/05/24 13:06 06/05/24 13:17 06/05/24 13:06 06/05/24 11:43
MDM/Problems Addressed
Differential Diagnosis Includes:
Wound clinically looks infected. Significant erythema and drainage. Patient is nontoxic. She has had no issues with penicillins in the recent past. However the last Pseudomonas was not sensitive to Zosyn. Will start Vanco and cefepime.
Considered blood cultures however patient has no systemic septic symptoms.
*Pulse Oximetry
Patient hypoxic: no
*Critical Care Note
Total Time (30-74mins, 75-104mins- exclusive of procedures): Not Applicable
Data Reviewed
Review of Other/Old Records Reveals: Labs, Records, Testing and Discharge Summary
Update Note
Update Note:
1315... Patient has had penicillin since she had an issue as a child and has done fine. Has been sensitive to cefepime previously
ED Attending Note
-
Portions of this chart may have been created with voice recognition software.� Occasional wrong word or��sound alike� substitutions may have occurred due to the inherent limitations of voice recognition software.
Discharge Plan
Departure
Patient Disposition: Admit
Date of Disposition: 06/05/24
Time of Disposition: 14:35
Presentation/result/management discussed w/ accepting MD/DO: Hospitalist
Discharge Problem:
Cellulitis right lower extremity
Prescriptions:
No Action
atorvastatin [Lipitor] 40 MG tablet
40 mg PO HS
ropinirole 2 MG tablet
8 mg PO TID
Eliquis 5 MG tablet
5 mg PO BID
pregabalin 150 mg capsule
150 mg PO BID
omeprazole 40 mg capsule,delayed release(DR/EC)
40 mg PO DAILY
nadolol 40 mg tablet
40 mg PO HS
albuterol sulfate 90 mcg/actuation HFA aerosol inhaler
2 puff inhalation R Q4HPRN PRN (Reason: sob wheezing)
tramadol 50 mg tablet
50 mg PO Q8HPRN PRN (Reason: moderate pain)
miconazole nitrate [Miconazorb AF] 2 % powder
1 applic topical BID
Interventions
Interventions:
*Risk Screen - Suicide Last Done: 06/05/24 11:42
*General Assessment Last Done: 06/05/24 11:43
*Neglect/Abuse Screening Last Done: 06/05/24 11:42
*ED- Fall Risk Assessment Last Done: 06/05/24 14:06
*ED COVID-19 Vaccine History Last Done: 06/05/24 13:17
ED-Skin Assessment Last Done: 06/05/24 14:07
Discharge Date and Time
Print Language: COMORAN
[2024-06-05 13:44] LABS: % Basophils 0.7 % (0-2); % Eosinophils 4.7 % (0-6); % Immature Granulocytes 0.3 % (0-0.5); % Lymphocytes 21.2 % (20.5-51.1); % Monocytes 7.4 % (1.7-9.3); % Neutrophils 65.7 % (42.2-75.2); Absolute Basophils 0.1 10^3/uL (0-0.2); Absolute Eosinophils 0.5 10^3/uL (0-0.7); Absolute Lymphocytes 2.2 10^3/uL (1.2-3.4); Absolute Monocytes 0.8 10^3/uL (0.1-0.6); Absolute Neutrophils 6.8 10^3/uL (1.4-6.5); Hematocrit 42.6 % (37.0-47.0); Hemoglobin 12.7 g/dL (12.0-16.0); Mean Corp Hgb Conc. 29.8 g/dL (33.0-37.0); Mean Corpuscular Hgb 25.6 pg (27.0-31.0); Mean Corpuscular Volume 85.7 fL (81.0-99.0); Mean Platelet Volume 9.3 fL (7.4-10.4); Nucleated Red Blood Cells % 0 %; Platelet Count 300 10^3/uL (130-400); Red Blood Cell Count 4.97 10^6/uL (4.20-5.40); White Blood Cell Count 10.3 10^3/uL (4.8-10.8)
[2024-06-05] MEDS: MAXIPIME 2000 MG IV ×2 (13:44→20:20)
[2024-06-05] MEDS: VANCOCIN 540 MG IV (13:49)
[2024-06-05 13:56] LABS: Blood Urea Nitrogen 14 mg/dl (7-17); Carbon Dioxide 34 mmol/L (22-30); Chloride 99 mmol/L (98-107); Estimated Creatinine Clearance 85 ml/min; Glucose 108 mg/dl (70-99); Potassium 4.8 mmol/L (3.5-5.1); Sodium 138 mmol/L (135-145); eGFR > 60.00
--- NOTE | 2024-06-05 15:11 | HPS.HSE ---
Family Physician
-
Family Physician: Stef Flores
Chief Complaint
-
complaining of change in skin color increased drainage and change in color of drainage to the right lower extremity.
History of Present Illness
83F HX Chronic RLE venous stasis wounds, POS MDR Pseudomass Wd culture, s/p PO Cipro as of following 3 days of Zosyn seen at ER :
- complaining of change in skin color increased drainage and change in color of drainage to the right lower extremity. - Progressive over days.
- Denies new pain fever chills or other systemic symptoms.
- Followed at wound care center.
ER Tx
- Afebrile
- IV Vancomycin and Cefepime
- IV Tramadol
Medical History
Past Medical History
Past Medical History: Reports Other
Additional Past Medical History:
CVA
PE/DVT
atrial fibrillation on Eliquis
chronic HFpEF
hypertension
hyperlipidemia
GERD
restless leg syndrome
spinal stenosis
neuropathy
Past Surgical History: Reports Other
Additional Past Surgical History:
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
partial thyroidectomy
Cervical-lumbar fusion
right shoulder replacement 2014
left knee replacement
Right knee replacement
Social History
Tobacco: Non-smoker
Alcohol: None
Drug: None
Personal:
Living: With Family
Family History
Family History: Not pertinent
Allergies / Home Medications
Allergies reflects when Allergies were last updated in [facility].
Home Medications with original date entered in [facility]
Allergy/Medication List:
Allergies
Allergy/AdvReac Type Severity Reaction Status Date / Time
adhesive [Adhesive] Allergy Itching/RED Verified 01/17/24 16:35
NESS
Aminoglycosides Allergy Pharmacy Verified 01/17/24 16:35
to Review
azithromycin [Azithromycin] Allergy patient Verified 01/17/24 16:35
denies
celecoxib [From Celebrex] Allergy started to Verified 01/17/24 16:35
break out
with sores
doxycycline Allergy Unknown Verified 01/17/24 16:35
erythromycin base Allergy CHEST PAIN Verified 01/17/24 16:35
furosemide [From Lasix] Allergy 'just Verified 01/17/24 16:35
doesn't
feel good'
- takes
bumetanide
at home
09/04/23
kanamycin Allergy Unknown Verified 01/17/24 21:25
Penicillins Allergy pt denies; Verified 01/17/24 16:35
says had
in 02/24
Home Medications
atorvastatin 40 mg tablet (Lipitor) 40 mg PO HS High cholesterol 06/22/20
ropinirole 2 mg tablet 8 mg PO TID Neurological Condition 07/25/22
apixaban 5 mg tablet (Eliquis) 5 mg PO BID Blood Clot Prevention/Tx 04/04/23
nadolol 40 mg tablet 20 mg PO HS Blood Pressure 04/04/23
omeprazole 40 mg capsule,delayed release 40 mg PO DAILY Gastrointestinal Issue 04/04/23
pregabalin 150 mg capsule 150 mg PO BID Neurological Condition 04/04/23
albuterol sulfate 90 mcg/actuation aerosol inhaler 2 puff inhalation R Q4HPRN PRN sob wheezing 01/17/24
budesonide 90 mcg/actuation breath activated powder inhaler (Pulmicort Flexhaler) 1 inh inhalation BID #1 ea 01/23/24
Review of Systems
-
Constitutional: Reports No Symptoms
EENT: Reports No Symptoms
Respiratory: Reports No Symptoms
Cardiac: Reports No Symptoms
Abdomen/GI: Reports No Symptoms
: Reports No Symptoms
Musculoskeletal: Reports No Symptoms
Skin: Reports See HPI
Neurological: Reports No Symptoms
Endocrine: Reports No Symptoms
Hematologic/Lymphatic: Reports No Symptoms
Psych: Reports No Symptoms
Physical Exam
Vital Signs
Vital Signs
Temp Pulse Resp BP Pulse Ox
97.9 F 77 18 128/59 94
06/05/24 11:43 06/05/24 13:06 06/05/24 13:17 06/05/24 13:06 06/05/24 11:43
Physical Exam
General: Well Developed, Well Nourished and No Apparent Distress
HEENT: NormoCephalic, Moist mucous membranes and Atraumatic
Respiratory: Clear
Cardiac: S1/S2 and Regular Rhythm; No Murmur or Rub
GI: Soft, Non Tender, Non Distended and Normal Bowel Sounds; No Organomegaly
Rectal: Deferred by Provider
Musculoskeletal: No Clubbing, No Cyanosis, No Edema and Other (Left AKA. )
Skin: Other (Right leg with significant erythema open wound to the diffuse right lower leg with drainage and cellulitis appearance to the foot.)
Neuro: Nonfocal/grossly intact
Laboratory Results
-
06/05/24 13:31
06/05/24 13:31
Data Reviewed
-
Lab Data: Labs Reviewed by me
Old Records: Reviewed
Impression/Plan
-
Vital Signs
Temp Pulse Resp BP Pulse Ox
97.9 F 77 18 128/59 94
06/05/24 11:43 06/05/24 13:06 06/05/24 13:17 06/05/24 13:06 06/05/24 11:43
Laboratory Tests
06/05/24
13:31
WBC 10.3
Carbon Dioxide 34 H
Creatinine 0.6
eGFR > 60.00
Glucose 108 H
04/07/23 R[address] Wd Cx: POS Pseudomonas aeruginosa
- sensitive to Cipro and Cefepime
- resistant to Ceftazidime, Zosyn, Aztreonam
01/18/24 NEG MRSA screen
07/26/22 TTE
Normal left ventricular size and systolic function.
No regional wall motion abnormalities are seen.
LV ejection fraction is 65-70% by Narvaez's method of discs.
Mild concentric left ventricular hypertrophy. Normal diastolic function.
Structurally normal mitral valve. Mitral valve opens normally.
Moderate mitral regurgitation.
Trileaflet aortic valve. Aortic sclerosis without stenosis.
Trace aortic regurgitation.
Since echocardiogram March 2020, there is no significant change.
Last hospitalist admission:
Date of Admission: 03/17/24 - Date of Discharge: 03/21/24 DC DXS: Right lower extremity cellulitis/ Hyponatremia/ Hyperkalemia
ASSESSMENT & PLAN
Acute non purulent RLE cellulitis - clinically looks infected with significant erythema and drainage. Not toxic
HX Chronic RLE venous stasis wounds
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
- HX Wound cx MDR-Pseudomonas resistant to Ceftazidime, Zosyn, Aztreonam
- HX Wound cx MDR-Pseudomonas sensitive to Cefepime and Ciprofloxacin
- 01/18/24 NEG MRSA screen HX
-c/w IV Cefepime then to consider PO Cipro
- to hold off IV vancomycin
- ID consult
- Known to [facility] for OP f/u after DC
HX Abx-associated diarrhea
- Continue lactobacillus
Essential Hypertension
- on Nadolol
Dyslipidemia
- on statin
Paroxysmal atrial fibrillation
- continue nadolol and Eliquis
Gastroesophageal reflux disease
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
Restless leg syndrome.
Neuropathy
- continue ropinirole/Lyrica
Hx of pulmonary embolus and deep vein thrombosis
- continue Eliquis
spinal stenosis.
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
Hx CVA/TIA
HTN
HX Prx AF
HX HFpEF
hypothyroidism s/p partial thyroidectomy
BMI 38 obesity
L AKA HX
L TKR HX
R shoulder replacement
endometriosis s/p hysterectomy, colon resection
cervical and lumbar fusion for spinal stenosis
DVT Px: LMWH
Full code
IP MS
[2024-06-05] MEDS: TYLENOL 650 MG PO ×2 (15:20→20:18)
[2024-06-05] MEDS: ULTRAM 25 MG PO (15:20)
[2024-06-05 17:04] VITALS: BP 105/51
[2024-06-05 17:19] VITALS: BMI 30.7
[2024-06-05] MEDS: REQUIP 8 MG PO ×2 (18:23→22:55)
--- NOTE | 2024-06-05 18:36 | TRANSFER ---
patient admitted to [facility] from ED, patient pulled over from stretcher to bed, admission completed by alexia. Patient resting comfortable in bed VSS. medications administered. orders reviewed.
[2024-06-05 20:14] VITALS: BP 101/47
[2024-06-05] MEDS: ELIQUIS 5 MG PO (20:18)
[2024-06-05] MEDS: DESENEX/MITRAZOL/ZEASORB 1 APPLIC TOPICAL (20:18)
[2024-06-05] MEDS: LYRICA 150 MG PO (20:20)
[2024-06-05] MEDS: STERILE WATER FOR INJECTION 10 ML IV (20:21)
[2024-06-05] MEDS: CORGARD PO (21:31)
[2024-06-05] MEDS: LIPITOR 40 MG PO (21:31)
--- NOTE | 2024-06-05 22:00 | PTCARENOTE ---
Report called to 4 Adam RN. Patient transferred to private room by staff.
[2024-06-05 23:42] VITALS: BP 99/52
[2024-06-06] MEDS: MAXIPIME 2000 MG IV ×2 (04:52→12:11)
[2024-06-06] MEDS: STERILE WATER FOR INJECTION 10 ML IV ×2 (04:53→12:11)
[2024-06-06 06:00] VITALS: BMI 29.2
[2024-06-06 07:20] VITALS: BP 96/45
[2024-06-06] MEDS: DESENEX/MITRAZOL/ZEASORB 1 APPLIC TOPICAL ×2 (07:46→21:56)
[2024-06-06] MEDS: LYRICA 150 MG PO ×2 (07:47→20:06)
[2024-06-06] MEDS: TYLENOL 650 MG PO (07:47)
[2024-06-06] MEDS: ELIQUIS 5 MG PO ×2 (07:47→20:06)
[2024-06-06] MEDS: PEPCID 20 MG PO (07:47)
[2024-06-06] MEDS: REQUIP 8 MG PO ×2 (07:48→15:37)
--- NOTE | 2024-06-06 08:20 | VNURNOTE ---
Chart reviewed. Patient is current with [facility] nursing. Will continue to follow hospital course and DC plans.
--- NOTE | 2024-06-06 08:49 | W.PN.HOSP.TC ---
Today's Communication/Plan
-
Antibiotics
Assessment / Plan
Assessment / Plan
Physical Exam
General: Well Developed, Well Nourished and No Apparent Distress
HEENT: NormoCephalic, Moist mucous membranes and Atraumatic
Respiratory: Clear
Cardiac: S1/S2 and Regular Rhythm; No Murmur or Rub
GI: Soft, Non Tender, Non Distended and Normal Bowel Sounds; No Organomegaly
Rectal: Deferred by Provider
Musculoskeletal: No Clubbing, No Cyanosis, No Edema and Other (Left AKA. )
Skin: Other (Right leg with significant erythema open wound to the diffuse right lower leg with drainage and cellulitis appearance to the foot.)
Neuro: Nonfocal/grossly intact
A/P:
Acute non purulent RLE cellulitis - clinically looks infected with significant erythema and drainage. Not toxic
HX Chronic RLE venous stasis wounds
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
- HX Wound cx MDR-Pseudomonas resistant to Ceftazidime, Zosyn, Aztreonam
- HX Wound cx MDR-Pseudomonas sensitive to Cefepime and Ciprofloxacin
- 01/18/24 NEG MRSA screen HX
-c/w IV Cefepime then to consider PO Cipro
- to hold off IV vancomycin
- ID consult pending
- Known to [facility] for OP f/u after DC
HX Abx-associated diarrhea
- Continue lactobacillus
Essential Hypertension
- on Nadolol
Dyslipidemia
- on statin
Paroxysmal atrial fibrillation
- continue nadolol and Eliquis
Gastroesophageal reflux disease
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
Restless leg syndrome.
Neuropathy
- continue ropinirole/Lyrica
Hx of pulmonary embolus and deep vein thrombosis
- continue Eliquis
spinal stenosis.
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
Hx CVA/TIA
HTN
HX Prx AF
HX HFpEF
hypothyroidism s/p partial thyroidectomy
BMI 38 obesity
L AKA HX
L TKR HX
R shoulder replacement
endometriosis s/p hysterectomy, colon resection
cervical and lumbar fusion for spinal stenosis
DVT Px: LMWH
Full code
Anticipated Discharge: 24 - 48 hours
Subjective/Interval History
-
Date of Service: June 06, 2024
Patient with some leg discomfort. No nausea or vomiting. Afebrile.
Objective Data
-
Labs:
Laboratory Results
06/06/24
07:25
WBC Pending
Hgb Pending
Hct Pending
Plt Count Pending
Sodium Pending
Potassium Pending
Chloride Pending
Carbon Dioxide Pending
BUN Pending
Creatinine Pending
Glucose Pending
Calcium Pending
Vital Signs:
Vital Signs
Temp Pulse Resp BP Pulse Ox
97.2 F 76 20 96/45 92
06/06/24 07:20 06/06/24 07:20 06/06/24 07:20 06/06/24 07:20 06/06/24 07:20
I&O
06/05/24 06/06/24 06/07/24
06:59 06:59 06:59
Intake Total 480 / 480
Balance 480 / 480
[2024-06-06 08:55] LABS: % Basophils 0.5 % (0-2); % Eosinophils 4.4 % (0-6); % Immature Granulocytes 0.4 % (0-0.5); % Lymphocytes 17.3 % (20.5-51.1); % Monocytes 7.2 % (1.7-9.3); % Neutrophils 70.2 % (42.2-75.2); Absolute Eosinophils 0.4 10^3/uL (0-0.7); Absolute Lymphocytes 1.4 10^3/uL (1.2-3.4); Absolute Monocytes 0.6 10^3/uL (0.1-0.6); Absolute Neutrophils 5.7 10^3/uL (1.4-6.5); Hematocrit 36.3 % (37.0-47.0); Mean Corp Hgb Conc. 30.3 g/dL (33.0-37.0); Mean Corpuscular Hgb 26.1 pg (27.0-31.0); Mean Corpuscular Volume 86.2 fL (81.0-99.0); Mean Platelet Volume 9.1 fL (7.4-10.4); Nucleated Red Blood Cells % 0 %; Platelet Count 237 10^3/uL (130-400); Red Blood Cell Count 4.21 10^6/uL (4.20-5.40); Red Cell Dist. Width 15.9 % (11.5-14.5); White Blood Cell Count 8.2 10^3/uL (4.8-10.8)
--- NOTE | 2024-06-06 09:08 | WOUNDNOTE ---
RLE (LATERAL)(with photo flash)
--- NOTE | 2024-06-06 09:11 | WOUNDNOTE ---
WO RN note: Patient admitted with RLE cellulitis. Patient lives at home. She has a caregiver who does her wound care. She is followed by [facility].
See H&P for complete history.
PMH: a fib (Eliquis), L AKA d/t MRSA infection, chronic RLE venous stasis ulcerations, CVA, PE/DVT, restless leg syndrome, spinal stenosis, neuropathy, cervical, lumbar fusion, R shoulder replacement.
Wound Location and type/assessment: Patient admitted with: large diffuse dermal and subcutaneous layer venous stasis ulcers, pink and dark red with some yellow/soto fibrin. Large amount of drainage. +1 RLE edema. +Palpable R pedal pulse. Yeast rash
abdominal, breast folds. Miconazole powder on order.
Appetite: good.
Pressure redistribution devices in place: [employer] Accumax. Patient can turn self in bed. She has has motorized chair.
Plan: RLE dressing changed. RLE Jeovanny wraps applied. RLE elevated on pillow and air chair cushion. Discussed local care and Jeovanny wrap with Dr. Hoskins prior to visit. Patient uses R knee high Surepress compression wrap and will resume when
discharged.
Will confirm orders with Dr. Rebollar and updated RN Vania.
Care plan to be updated and will follow as needed.
Note to case management requested for discharge: VN if patient wants.
Patient o follow up at wound care center upon discharge.
[2024-06-06 09:22] LABS: Blood Urea Nitrogen 12 mg/dl (7-17); Calcium 7.9 mg/dl (8.4-10.2); Carbon Dioxide 33 mmol/L (22-30); Chloride 101 mmol/L (98-107); Estimated Creatinine Clearance 83 ml/min; Glucose 109 mg/dl (70-99); Potassium 4.2 mmol/L (3.5-5.1); Sodium 136 mmol/L (135-145); eGFR > 60.00
--- NOTE | 2024-06-06 10:41 | CM ---
CM reviewed chart, patient seen bedside, initial assessment completed. Patient reports she lives in a one level home, ramp to enter, has three electric wheelchairs at home. 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
[facility], followed by wound care. Patient PCP Stef Flores, pharmacy [facility]. CM will continue to follow for all discharge planning needs.
Plan; home with [facility], caregiver
--- NOTE | 2024-06-06 15:13 | CON.ID ---
Consultation
-
Date/Time Consultation Requested: 06/05/24 23:18
Date/Time Consultation Performed: 06/06/2024 15:14
Requesting Provider: Kendall
Performing Provider: Rylee
Reason for Consultation: RLE cellulitis
Chief Complaint / Past History
History of Present Illness
Abi Thompson is an 83-year-old female with a significant past medical history of venous stasis and lower extremity lymphedema being evaluated at the request of Dr. Potter regarding recurrent cellulitis of the right lower extremity. History is
obtained from chart review, along with patient interview.
The patient is well-known to the Infectious Diseases service, and is followed closely in the outpatient setting. She has a history of left AKA, and has been dealing with ongoing edema of the right lower extremity along with venous stasis wounds.
She uses compressive modalities which are applied by her home health assistant manager bilingual.
She reports she was in her usual state of health 3 days ago, but approximately 48 hours prior to admission she noted a change in color, stating the previously yellow areas of slough had turned somewhat more brown. There was no change in discomfort
of the lower extremity, though. 2 days ago she noted increasing erythema of the leg and yesterday was to be seen in the wound care center, but she missed her appointment and she presented to the emergency room for further evaluation. At
presentation she noted that the area was more sore, but denied specific fevers or chills. Erythema is limited to the below the knee area.
In the ER she was started on empiric antibiotics. Infectious Diseases is asked to comment upon further antimicrobial management.
Past History
Additional Past Medical History:
Hx CVA/TIA
HTN
DVT/PE
Afib
HFpEF
hypothyroidism
partial thyroidectomy
Right LE chronic venous stasis wounds
BMI 38
L TKR
R shoulder replacement
endometriosis s/p hysterectomy, colon resection
L AKA
cervical and lumbar fusion
Restless leg syndrome
Allergy History:
adhesive [Adhesive] Allergy (Verified 03/31/24 19:37)
Itching/REDNESS
Aminoglycosides Allergy (Verified 03/31/24 19:37)
Pharmacy to Review
azithromycin [Azithromycin] Allergy (Verified 03/31/24 19:37)
patient denies
celecoxib [From Celebrex] Allergy (Verified 03/31/24 19:37)
started to break out with sores
doxycycline Allergy (Verified 03/31/24 19:37)
Unknown
erythromycin base Allergy (Verified 03/31/24 19:37)
CHEST PAIN
furosemide [From Lasix] Allergy (Verified 03/31/24 19:37)
'just doesn't feel good' - takes bumetanide at home 09/04/23
kanamycin Allergy (Verified 03/31/24 19:37)
Unknown
latex Allergy (Verified 06/05/24 11:43)
Rash
ciprofloxacin [From Cipro] Adverse Reaction (Verified 04/01/24 12:18)
dizziness
Medications Reviewed: Yes
Current Antibiotics:
Cefepime 2 g IV every 8 hours
Social History
Tobacco: Non-Smoker
Alcohol: None
Drug: None
Personal:
Family History
Family History: Not Pertinent
Review of Systems
Vital Signs
Temp Pulse Resp BP Pulse Ox
97.2 F 76 20 96/45 92
06/06/24 07:20 06/06/24 07:20 06/06/24 07:20 06/06/24 07:20 06/06/24 07:20
Physical Exam
Physical Exam
Constitutional: No Acute Distress, Comfortable, Chronically Ill and Non-toxic
Eyes: No Conjunctival Hemorrhage and Sclera Anicteric
Oral: No Thrush and No Ulcers
Cardiovascular: S1/S2; Negative S3/S4
Pulmonary: Non Labored
Gastrointestinal: Soft, Non Tender and Non Distended
Extremities: Other (RLE with significant erythema. Serous drainage)
Neurological: Awake and Alert
Psychological: Calm
Lab / Diagnostic Study Results
06/06/24 07:25
06/06/24 07:25
Abs Immat Gran (auto) 0.0 10^3/uL (0-0.05) 06/06/24 07:25
Absolute Neuts (auto) 5.7 10^3/uL (1.4-6.5) 06/06/24 07:25
Absolute Lymphs (auto) 1.4 10^3/uL (1.2-3.4) 06/06/24 07:25
Absolute Monos (auto) 0.6 10^3/uL (0.1-0.6) 06/06/24 07:25
Absolute Basos (auto) 0.0 10^3/uL (0-0.2) 06/06/24 07:25
Immature Gran % 0.4 % (0-0.5) 06/06/24 07:25
Neutrophils % 70.2 % (42.2-75.2) 06/06/24 07:25
Lymphocytes % 17.3 % (20.5-51.1) L 06/06/24 07:25
Monocytes % 7.2 % (1.7-9.3) 06/06/24 07:25
Eosinophils % 4.4 % (0-6) 06/06/24 07:25
Basophils % 0.5 % (0-2) 06/06/24 07:25
Assessment / Plan
RLE erythema
Recurrent lymphedema with exacerbation
Suspected cellulitis
Right LE chronic venous stasis wounds
Hx CVA/TIA
HTN
DVT/PE
Afib
HFpEF
hypothyroidism
BMI 38
Recommendations
Continue with cefepime. Decrease dose to 2 g IV every 12 hours
Continue with local care to the wound.
Continue with compressive modalities, along with lower extremity elevation to facilitate lymphatic drainage.
Monitor white count and temperature curve.
[2024-06-06] MEDS: HYDROPHOR 1 APPLIC TOPICAL (20:06)
[2024-06-06] MEDS: REQUIP PO ×2 (21:51→23:00)
[2024-06-06] MEDS: CORGARD 40 MG PO (21:51)
[2024-06-06] MEDS: LIPITOR 40 MG PO (21:51)
[2024-06-06 22:20] VITALS: BP 129/50
[2024-06-06] MEDS: ProAIR HFA INHALER 2 PUFF INH (22:50)
[2024-06-07] MEDS: MAXIPIME 2000 MG IV
[2024-06-07] MEDS: STERILE WATER FOR INJECTION 10 ML IV (00:01)
[2024-06-07] MEDS: REQUIP 8 MG PO ×2 (04:24→22:28)
[2024-06-07 06:00] VITALS: BMI 29.0
[2024-06-07 07:12] VITALS: BP 100/44
[2024-06-07] MEDS: DESENEX/MITRAZOL/ZEASORB 1 APPLIC TOPICAL ×2 (07:26→22:26)
[2024-06-07] MEDS: TYLENOL 650 MG PO (07:27)
[2024-06-07] MEDS: REQUIP PO ×3 (07:31→18:18)
[2024-06-07] MEDS: ELIQUIS 5 MG PO ×2 (07:32→19:21)
[2024-06-07] MEDS: HYDROPHOR 1 APPLIC TOPICAL ×2 (07:32→22:27)
[2024-06-07] MEDS: PEPCID 20 MG PO (07:32)
[2024-06-07] MEDS: LYRICA 150 MG PO ×2 (07:32→19:21)
[2024-06-07 08:52] LABS: % Basophils 0.5 % (0-2); % Eosinophils 3.9 % (0-6); % Immature Granulocytes 0.2 % (0-0.5); % Lymphocytes 20.2 % (20.5-51.1); % Monocytes 6.2 % (1.7-9.3); Absolute Eosinophils 0.3 10^3/uL (0-0.7); Absolute Lymphocytes 1.7 10^3/uL (1.2-3.4); Absolute Monocytes 0.5 10^3/uL (0.1-0.6); Absolute Neutrophils 5.9 10^3/uL (1.4-6.5); Hematocrit 39.7 % (37.0-47.0); Hemoglobin 12.2 g/dL (12.0-16.0); Mean Corp Hgb Conc. 30.7 g/dL (33.0-37.0); Mean Corpuscular Hgb 25.8 pg (27.0-31.0); Mean Corpuscular Volume 83.9 fL (81.0-99.0); Mean Platelet Volume 9.2 fL (7.4-10.4); Nucleated Red Blood Cells % 0 %; Platelet Count 287 10^3/uL (130-400); Red Blood Cell Count 4.73 10^6/uL (4.20-5.40); Red Cell Dist. Width 15.9 % (11.5-14.5); White Blood Cell Count 8.6 10^3/uL (4.8-10.8)
[2024-06-07 09:01] LABS: Blood Urea Nitrogen 10 mg/dl (7-17); Calcium 8.5 mg/dl (8.4-10.2); Carbon Dioxide 31 mmol/L (22-30); Chloride 101 mmol/L (98-107); Estimated Creatinine Clearance 83 ml/min; Glucose 144 mg/dl (70-99); Potassium 4.2 mmol/L (3.5-5.1); Sodium 138 mmol/L (135-145); eGFR > 60.00
[2024-06-07 09:37] LABS: Glucose - Point of Care 205 mg/dl (70-99)
--- NOTE | 2024-06-07 10:05 | W.PN.HOSP.TC ---
Today's Communication/Plan
-
CT of the head. MRI of the brain. Antibiotics adjustments.
Assessment / Plan
Assessment / Plan
Physical exam:
General: Acute on chronically ill
HEENT: Normocephalic, Atraumatic and Moist Mucous Membranes
Respiratory: Clear to Auscultation; Negative Wheezes, Rales or Rhonchi
Cardiac: Regular Rhythm and S1/S2
GI: Soft, Nontender and Nondistended
Musculoskeletal: Right lower extremity erythema and serous drainage. Left AKA. No Clubbing, No Cyanosis
Neuro: Awake, Alert and Oriented, left-sided decreased sensation. No focal weakness.
Psych: Anxious
A/P:
Acute changes of sensorium--> differential includes CVA/TIA versus C7-8 radiculopathy versus adverse event of antibiotic:
Not a candidate for thrombolytics-patient on anticoagulant and took last dose this morning.
Neurology consulted stat and came and evaluated at bedside along with myself.
On Eliquis and statin
Plan for CT of the head--> seen by myself and discussed with radiology and no acute pathology
Plan for MRI of the brain
Will update echocardiogram
Change antibiotics
Cardiac monitoring
Continue NIH and neurochecks
PT OT and speech therapy eval
Discussed with at bedside
Right lower extremity cellulitis in the setting of right lower extremity lymphedema and venous stasis:
ID will stop IV cefepime and change to Ceftazidime-Avibactam.
ID consult appreciated
Compression stockings
Continue to monitor clinical course
Paroxysmal A-fib:
On anticoagulation of Eliquis
On rate control of nadolol
Cardiac monitoring
History of DVT/PE:
On anticoagulation
Hypertension:
Continue home antihypertensive
Hyperlipidemia:
Continue statin, atorvastatin 40 mg p.o. nightly
Restless leg syndrome:
On Requip
DVT prophylaxis:
On Eliquis
CODE STATUS:
Full code
Total time spent on today's encounter was 52 minutes which included time spent in counseling the patient/family regarding diagnosis and treatment plan as listed above, goals of care, and symptom management. Case was discussed with nursing staff,
specialists, and care coordinators/case management. All labs and imaging personally reviewed by me. Remainder the time spent in detailed review of previous records, lab data, imaging, and other medical provider documentation.
Anticipated Discharge: > 48 hours
Subjective/Interval History
-
Date of Service: June 07, 2024
Patient had a 'stroke alert' this morning; I came and evaluated her. She does complain of paresthesia on the left side of her body but she also feels 'off' and very weak overall. Speech is slow but not dysarthric. No chest pain or shortness of
breath. Afebrile
Objective Data
-
Labs:
Laboratory Results
06/07/24
08:24
WBC 8.6
Hgb 12.2
Hct 39.7
Plt Count 287 D
Sodium 138
Potassium 4.2
Chloride 101
Carbon Dioxide 31 H
BUN 10
Creatinine 0.5 L
Glucose 144 H
Calcium 8.5
Vital Signs:
Vital Signs
Temp Pulse Resp BP Pulse Ox
98.6 F 62 18 100/44 92
06/07/24 07:12 06/07/24 07:12 06/07/24 07:12 06/07/24 07:12 06/07/24 07:12
I&O
06/06/24 06/07/24 06/08/24
06:59 06:59 06:59
Intake Total 480 / 480 480 / 480
Balance 480 / 480 480 / 480
--- NOTE | 2024-06-07 10:22 | W.PN.ID1 ---
Date of Service
Date of Service: June 07, 2024
Today's Communication
Replace cefepime (mental status change) with ceftz/avibactam 2.5g IV q8h.
Assessment / Plan
Acute mental status change - suspect due to cefepime
RLE erythema
Recurrent lymphedema with exacerbation
Suspected cellulitis
Right LE chronic venous stasis wounds
Hx CVA/TIA
HTN
DVT/PE
Afib
HFpEF
hypothyroidism
BMI 38
Recommendations
DC cefepime and monitor for improvement of mental status.
RLE colonized with MDR-Pseudomonas.
Replace cefepime with ceftz/avibactam 2.5g IV q8h.
Continue with local care to the wound.
Continue with compressive modalities, along with lower extremity elevation to facilitate lymphatic drainage.
Monitor white count and temperature curve.
Chief Complaint
-: Cellulitis
Subjective / Review of Systems
C/o feeling confused and weaker.
No leg pain.
Vital Signs / Physical Exam
Vital Signs
Vital Signs
Temp Pulse Resp BP Pulse Ox
98.6 F 62 18 100/44 92
06/07/24 07:12 06/07/24 07:12 06/07/24 07:12 06/07/24 07:12 06/07/24 07:12
Physical Exam
Constitutional: Acutely Ill
Pulmonary: Clear
Gastrointestinal: Soft, Non Tender, Non Distended and Normal Bowel Sounds
Extremities: Edema (lymhpedema)
Wound: Other (RLE dressings dry)
Objective Data
Lab Data
Lab Results
06/07/24 08:24
06/07/24 08:24
Estimated Creat Clear 83 ml/min 06/07/24 08:24
Most recent labs reviewed.
--- NOTE | 2024-06-07 11:30 | CON.NEURO ---
Consultation
Order
Date of Consultation: 06/07/24
Requesting Provider:
Reason for Consult: Stroke alert
Called in 9:33 am
Neurology Consultation Note.
HPI: This is an 83-year-old woman who presented to [facility] for management of right lower extremity cellulitis.
Stroke alert was activated due to sensory symptoms. The patient states that her left arm feels numb and tingling, particularly in the L III-V digits. These symptoms reportedly has been present since her 'last stroke'. She is not sure what time
sensory symptoms occurred. Ms. Thompsno also has a history of cervical radiculopathy and remote C3-C7 ACDF.
CT head without contrast (04/2021) done for left facial paresthesia showed chronic lacunar infarct left basal ganglia.
No reports of change in speech, language or strength.
FS: 205.
PDMP: Pregabalin 150 Mg 180 capsules filled in on 05/01/2024, Oxycodone-Acetaminophen 5-325 10 tablets filled in on 04/01/2024, Tramadol Hcl 50 Mg�120 tablets filled in on 03/06/2024
Review of vital signs was notable for transient hypotension down to 96/45 at 7:[address] head wo contrast-There is no acute intracranial pathology. There is mild ventricle sulcal prominence consistent with atrophy. There is mild decreased attenuation about the lateral ventricles consistent with periventricular small vessel ischemic
disease. There is no evidence of hemorrhage. There are no extra-axial fluid collections.
MAR: Eliquis 5 mg administered at 7:32 AM on 06/07/2024
PMH:PA A-Fib, PE, HTN, DLP, IGT, HFpEF, hypothyroidism, BMI 29, PAD, RLS, history of spinal stenosis
PSH: C3-C7 ACDF, L1/L2 laminectomy IVC filter, L AKA, partial colectomy, right shoulder replacement, AMANDA, renal artery PTCI, L TKA, osteoporosis
SH: , non-smoker
ROS: Positive for chronic dysarthria, left arm paresthesias.
NIH Stroke Scale
1A Level of Consciousness: 0/3
1B LOC Questions: 0/2
1C LOC Commands: 0/2
2 Best Gaze: 0/2
3 Visual: 0/3
4 Facial Palsy: 0/3
5A Motor Arm LEFT: 0/4
5B Motor Arm RIGHT: 0/4
6A Motor Leg LEFT: 0/4
6B Motor Leg RIGHT: 0/4
7 Limb Ataxia: 0/2
8 Sensory: 0/2
9 Best Language: 0/3
10 Dysarthria: 1/2
11 Extinction/Inattention: 0/2
Total NIHSS: 1
Assessment and Plan:
I. Probable left C7-C8 radiculopathy. Not a candidate for IV TNK due to systemic anticoagulation.
II. Paroxysmal A-fib
III. Mild encephalopathy
-Avoid cerebral hypoperfusion
- Strict glycemic control
- Avoid neurotoxic medication
- Brain MRI without gigi
- Outpatient NCS/EMG
-Will follow
I personally reviewed all radiology and labs along with past medical records pertinent to current medical problems. Total time spent in patient care is 55 minutes.
Thank you for allowing us to participate in the care of this patient. We will continue to follow. Please do not hesitate to contact us with any questions or concerns.
Subjective/Objective
Subjective Data
Date of Service: June 07, 2024
Objective Data
Vital Signs
Temp Pulse Resp BP Pulse Ox
37.0 C 62 18 100/44 92
06/07/24 07:12 06/07/24 07:12 06/07/24 07:12 06/07/24 07:12 06/07/24 07:12
Lab Results
06/07/24 08:24
06/07/24 08:24
Sodium 138 mmol/L (135-145) 06/07/24 08:24
Potassium 4.2 mmol/L (3.5-5.1) 06/07/24 08:24
BUN 10 mg/dl (7-17) 06/07/24 08:24
Glucose 144 mg/dl (70-99) H 06/07/24 08:24
Calcium 8.5 mg/dl (8.4-10.2) 06/07/24 08:24
Patient Allergies
adhesive [Adhesive] Allergy (Verified 03/31/24 19:37)
Itching/REDNESS
Aminoglycosides Allergy (Verified 03/31/24 19:37)
Pharmacy to Review
azithromycin [Azithromycin] Allergy (Verified 03/31/24 19:37)
patient denies
celecoxib [From Celebrex] Allergy (Verified 03/31/24 19:37)
started to break out with sores
doxycycline Allergy (Verified 03/31/24 19:37)
Unknown
erythromycin base Allergy (Verified 03/31/24 19:37)
CHEST PAIN
furosemide [From Lasix] Allergy (Verified 03/31/24 19:37)
'just doesn't feel good' - takes bumetanide at home 09/04/23
kanamycin Allergy (Verified 03/31/24 19:37)
Unknown
latex Allergy (Verified 06/05/24 11:43)
Rash
ciprofloxacin [From Cipro] Adverse Reaction (Verified 04/01/24 12:18)
dizziness
Medications
-
Active Medications
Generic Name Dose Route Start Last Admin
Trade Name Freq PRN Reason Stop Dose Admin
Acetaminophen 650 mg 06/05/24 17:37 06/07/24 07:27
Acetaminophen 325 Mg Tablet PO 07/03/24 17:36 650 mg
Q4HPRN PRN Administration
mild pain/TODD/temp> 100.4F
Albuterol 2 puff 06/05/24 17:37 06/06/24 22:50
Albuterol Hfa [90 Mcg/Dose] Inhaler INH 2 puff
R Q4HPRN PRN Administration
sob wheezing
Protocol
Apixaban 5 mg 06/05/24 20:00 06/07/24 07:32
Apixaban (Eliquis) 5 Mg Tablet PO 07/03/24 19:59 5 mg
BID AFIA Administration
Atorvastatin Calcium 40 mg 06/05/24 22:00 06/06/24 21:51
Atorvastatin (Lipitor) 40 Mg Tablet PO 07/03/24 21:59 40 mg
HS AFIA Administration
Bisacodyl 10 mg 06/05/24 17:37
Bisacodyl 10 Mg Rectal Suppository RECTAL 07/03/24 17:36
[id number] PRN
constipation
Emollient Ointment 0 applic 06/06/24 20:00 06/07/24 07:32
Petrolatum/Mineral Oil (Hydrophor) Oint 100 Gram TOPICAL 07/04/24 19:59 1 applic
BID AFIA Administration
Famotidine 20 mg 06/06/24 08:00 06/07/24 07:32
Famotidine 20 Mg Tablet PO 07/04/24 07:59 20 mg
DAILY AFIA Administration
Miconazole Nitrate 0 applic 06/05/24 20:00 06/07/24 07:26
Miconazole Powder Bottle TOPICAL 07/03/24 19:59 1 applic
BID AFIA Administration
Nadolol 40 mg 06/05/24 22:00 06/06/24 21:51
Nadolol 20 Mg Tablet PO 07/03/24 21:59 40 mg
HS AFIA Administration
Pharmacy Profile Note 0 unit 06/07/24 14:[address] 1 Unit IV 07/05/24 13:59
DIRECTED AFIA
Polyethylene Glycol 17 grams 06/05/24 17:37
Polyethylene Glycol Powder 17 Grams Packet PO 07/03/24 17:36
DAILYPRN PRN
constipation
Pregabalin 150 mg 06/05/24 20:00 06/07/24 07:32
Pregabalin 75 Mg Capsule PO 07/03/24 19:59 150 mg
BID AFIA Administration
Ropinirole HCl 8 mg 06/05/24 17:37 06/07/24 07:31
Ropinirole 2 Mg Tablet PO 07/03/24 17:36 8 mg
TID AFIA Administration
Senna/Docusate Sodium 1 tablet 06/05/24 17:37
Docusate W/Senna (Samantha-Colace) Tablet PO 07/03/24 17:36
BIDPRN PRN
constipation
Sodium Chloride 0 flush 06/05/24 18:00
Sodium Chloride 0.9% (Flush) Syringe IV 07/03/24 17:59
PER PROTOCOL AFIA
Tramadol HCl 50 mg 06/05/24 17:37
Tramadol Hcl 50 Mg Tablet PO 07/03/24 17:36
Q8HPRN PRN
moderate pain
Home Medications
�Medication �Instructions �Recorded
atorvastatin 40 mg tablet (Lipitor) 40 mg PO HS High cholesterol 06/22/20
ropinirole 2 mg tablet 8 mg PO TID Neurological Condition 07/25/22
apixaban 5 mg tablet (Eliquis) 5 mg PO BID Blood Clot 04/04/23
Prevention/Tx
nadolol 40 mg tablet 40 mg PO HS Blood Pressure 04/04/23
omeprazole 40 mg capsule,delayed 40 mg PO DAILY Gastrointestinal 04/04/23
release Issue
pregabalin 150 mg capsule 150 mg PO BID Neurological 04/04/23
Condition
albuterol sulfate 90 mcg/actuation 2 puff inhalation R Q4HPRN PRN sob 01/17/24
aerosol inhaler wheezing
tramadol 50 mg tablet 50 mg PO Q8HPRN PRN moderate pain 03/18/24
miconazole nitrate 2 % topical 1 applic topical BID folds,reddness 06/05/24
powder (Miconazorb AF)
Vital Signs and Labs
-
Vital Signs and Labs:
Vital Signs
Temp Pulse Resp BP Pulse Ox
36.8 C 53 18 102/38 94
06/07/24 11:46 06/07/24 11:46 06/07/24 11:46 06/07/24 11:46 06/07/24 11:46
Lab Results
06/07/24 08:24
06/07/24 08:24
Sodium 138 mmol/L (135-145) 06/07/24 08:24
Potassium 4.2 mmol/L (3.5-5.1) 06/07/24 08:24
BUN 10 mg/dl (7-17) 06/07/24 08:24
Glucose 144 mg/dl (70-99) H 06/07/24 08:24
Calcium 8.5 mg/dl (8.4-10.2) 06/07/24 08:24
Medications
-
Medications:
Generic Name Dose Route Start Last Admin
Trade Name Freq PRN Reason Stop Dose Admin
Acetaminophen 650 mg 06/05/24 17:37 06/07/24 07:27
Acetaminophen 325 Mg Tablet PO 07/03/24 17:36 650 mg
Q4HPRN PRN Administration
mild pain/TODD/temp> 100.4F
Albuterol 2 puff 06/05/24 17:37 06/06/24 22:50
Albuterol Hfa [90 Mcg/Dose] Inhaler INH 2 puff
R Q4HPRN PRN Administration
sob wheezing
Protocol
Apixaban 5 mg 06/05/24 20:00 06/07/24 07:32
Apixaban (Eliquis) 5 Mg Tablet PO 07/03/24 19:59 5 mg
BID AFIA Administration
Atorvastatin Calcium 40 mg 06/05/24 22:00 06/06/24 21:51
Atorvastatin (Lipitor) 40 Mg Tablet PO 07/03/24 21:59 40 mg
HS AFIA Administration
Bisacodyl 10 mg 06/05/24 17:37
Bisacodyl 10 Mg Rectal Suppository RECTAL 07/03/24 17:36
[id number] PRN
constipation
Emollient Ointment 0 applic 06/06/24 20:00 06/07/24 07:32
Petrolatum/Mineral Oil (Hydrophor) Oint 100 Gram TOPICAL 07/04/24 19:59 1 applic
BID AFIA Administration
Famotidine 20 mg 06/06/24 08:00 06/07/24 07:32
Famotidine 20 Mg Tablet PO 07/04/24 07:59 20 mg
DAILY AFIA Administration
Miconazole Nitrate 0 applic 06/05/24 20:00 06/07/24 07:26
Miconazole Powder Bottle TOPICAL 07/03/24 19:59 1 applic
BID AFIA Administration
Nadolol 40 mg 06/05/24 22:00 06/06/24 21:51
Nadolol 20 Mg Tablet PO 07/03/24 21:59 40 mg
HS AFIA Administration
Pharmacy Profile Note 0 unit 06/07/24 14:[address] 1 Unit IV 07/05/24 13:59
DIRECTED AFIA
Polyethylene Glycol 17 grams 06/05/24 17:37
Polyethylene Glycol Powder 17 Grams Packet PO 07/03/24 17:36
DAILYPRN PRN
constipation
Pregabalin 150 mg 06/05/24 20:00 06/07/24 07:32
Pregabalin 75 Mg Capsule PO 07/03/24 19:59 150 mg
BID AFIA Administration
Ropinirole HCl 8 mg 06/05/24 17:37 06/07/24 07:31
Ropinirole 2 Mg Tablet PO 07/03/24 17:36 8 mg
TID AFIA Administration
Senna/Docusate Sodium 1 tablet 06/05/24 17:37
Docusate W/Senna (Samantha-Colace) Tablet PO 07/03/24 17:36
BIDPRN PRN
constipation
Sodium Chloride 0 flush 06/05/24 18:00
Sodium Chloride 0.9% (Flush) Syringe IV 07/03/24 17:59
PER PROTOCOL AFIA
Tramadol HCl 50 mg 06/05/24 17:37
Tramadol Hcl 50 Mg Tablet PO 07/03/24 17:36
Q8HPRN PRN
moderate pain
Home Medications
-
Home Medications
atorvastatin 40 mg tablet (Lipitor) 40 mg PO HS High cholesterol 06/22/20
ropinirole 2 mg tablet 8 mg PO TID Neurological Condition 07/25/22
apixaban 5 mg tablet (Eliquis) 5 mg PO BID Blood Clot Prevention/Tx 04/04/23
nadolol 40 mg tablet 40 mg PO HS Blood Pressure 04/04/23
omeprazole 40 mg capsule,delayed release 40 mg PO DAILY Gastrointestinal Issue 04/04/23
pregabalin 150 mg capsule 150 mg PO BID Neurological Condition 04/04/23
albuterol sulfate 90 mcg/actuation aerosol inhaler 2 puff inhalation R Q4HPRN PRN sob wheezing 01/17/24
tramadol 50 mg tablet 50 mg PO Q8HPRN PRN moderate pain 03/18/24
miconazole nitrate 2 % topical powder (Miconazorb AF) 1 applic topical BID folds,reddness 06/05/24
[2024-06-07 11:46] VITALS: BP 102/38
--- NOTE | 2024-06-07 15:25 | PTCARENOTE ---
Pt arrived to floor from 4 west on stretcher. Pt slid over to bed; AAO x 3, drowsy; NIH performed = 4; Pt has slight L facial droop and mild dysarthria; L AKA; R leg wound care performed; SR/SB on monitor; Oriented to room, call schmid within
reach.
[2024-06-07 16:00] VITALS: BP 93/80
[2024-06-07 16:02] VITALS: BMI 29.0
[2024-06-07] MEDS: [UNRECOGNIZED DRUG - OTHER] 62 MG IV ×2 (16:25→23:06)
[2024-06-07 17:39] LABS: Glucose - Point of Care 80 mg/dl (70-99)
[2024-06-07 18:33] VITALS: BP 92/67
[2024-06-07] MEDS: NOVOLOG FLEXPEN-LOW RESISTANCE SC (18:37)
[2024-06-07] MEDS: ProAIR HFA INHALER 2 PUFF INH (19:09)
[2024-06-07 19:36] VITALS: BP 113/93
--- NOTE | 2024-06-07 20:00 | PTCARENOTE ---
Received pt at beginning of shift resting in bed. NIH unchanged from previous as documented. AAOx3. Restless and anxious. Audible wheezing noted. Lung tightness noted. Accessory muscles in use. POX 2L 80's-90's. O2 increased to 4L NC pox 94-97%.
Received in report from tresa Jo concern for possible allergic reaction since pt started on new antibiotic Avycaz. Per TT'd with Dr Becker there was no concern that antibiotic causing her symptoms. PCXR ordered and obtained. Will continue to
monitor.
[2024-06-07 22:05] LABS: Glucose - Point of Care 101 mg/dl (70-99)
[2024-06-07 22:09] VITALS: BP 101/36
[2024-06-07] MEDS: CORGARD PO ×2 (22:28→23:06)
[2024-06-07] MEDS: LIPITOR 40 MG PO (22:28)
[2024-06-08] VITALS (37 sets, daily range): BP systolic 60–147; BP diastolic 37–119; PULSE 2–89; O2SAT 91–92
[2024-06-08] MEDS: ProAIR HFA INHALER 2 PUFF INH (00:06)
--- NOTE | 2024-06-08 00:09 | PTCARENOTE ---
Pt SOB with expiratory wheezing. Pt keeps taking off O2 with pox down into the 80's. O2 replaced multiple times. Don from RT TT'd and made aware to give pt breathing treatment. RT in room with pt for treatment. Pt complained that 'because she is
educated she does not appreciate being treated the way she is being treated.' This RN explained to pt that her safety and well-being are my main concern. Pt requested to get up oob. This RN explained to pt that it was not safe for her to get up oob
due to her being short of breath, increased work of breathing with wheezing. This RN left pt in care of RT for breathing treatment. Will continue to monitor.
[2024-06-08] MEDS: DUONEB 3 ML INH (01:23)
--- NOTE | 2024-06-08 02:37 | W.PN.UPDATE ---
Update Note
Progress Note Update
~ midnight - Patient seen for increased SOB, wheezing, tightness. Unable to speak full sentences. Patient with b/l wheezing t/o, diminished. Pt received PRN Albuterol inhaler with no improvement.
Ordered Duoneb treatment with some improvement, patient sleeping.
~2:20 Patient again has symptoms fo wheezing, tightness, grunting. Pulsox 94% on 4L NC. VS BP 102/55, HR 62, Temp 98.6, Resp 19, 97% on 4LNC.
Patient started w/symptoms during second dose of antibiotics infusing. Reviewed with overnight provider. Treating for anaphylaxis: Decadron 10 mg IV, Benadryl 25 mg IV, Epinephrine 0.5 IM x 3 doses. NSS 1L Bolus given. Antibiotics placed on hold,
pending ID evaluation.
Ordered Portable CXR, ABG, Flu, Covid, ABG. Started on Bipap, O2 sat improved, respiration even w/decreased work of breathing.
Patient remains hypotensive after completion of 1L bolus and Epinephrine x 3 doses. Started on Epinephrine gtt 8mcg/min and titrate per protocol. Patient transferred to ICU. Underground Roof Bolter consult placed.
[2024-06-08] MEDS: DECADRON 10 MG IV (02:48)
[2024-06-08] MEDS: BENADRYL 25 MG IV (02:48)
[2024-06-08] MEDS: FLUSH (NSS) 3 FLUSH IV (02:48)
[2024-06-08] MEDS: ADRENALIN 0.5 MG IM ×3 (03:04→04:01)
[2024-06-08] MEDS: NSS 500 IV (03:05)
[2024-06-08 03:25] LABS: B.E. 6.6 mmol/L; HCO3 34.5 mmol/L (21-28); O2 Saturation % 96.5 % (94-98); PCO2 67 mmHg (32-35); PO2 76 mmHg (83-108); pH 7.32 (7.35-7.45)
[2024-06-08 03:30] LABS: % Basophils 0.5 % (0-2); % Eosinophils 5.8 % (0-6); % Immature Granulocytes 0.4 % (0-0.5); % Lymphocytes 22.4 % (20.5-51.1); % Monocytes 7.2 % (1.7-9.3); % Neutrophils 63.7 % (42.2-75.2); Absolute Eosinophils 0.5 10^3/uL (0-0.7); Absolute Lymphocytes 1.8 10^3/uL (1.2-3.4); Absolute Monocytes 0.6 10^3/uL (0.1-0.6); Absolute Neutrophils 5.2 10^3/uL (1.4-6.5); Hematocrit 37.3 % (37.0-47.0); Hemoglobin 11.5 g/dL (12.0-16.0); Mean Corp Hgb Conc. 30.8 g/dL (33.0-37.0); Mean Corpuscular Hgb 26.2 pg (27.0-31.0); Mean Platelet Volume 9.1 fL (7.4-10.4); Nucleated Red Blood Cells % 0 %; Platelet Count 262 10^3/uL (130-400); Red Blood Cell Count 4.39 10^6/uL (4.20-5.40); Red Cell Dist. Width 15.9 % (11.5-14.5); White Blood Cell Count 8.2 10^3/uL (4.8-10.8)
[2024-06-08 03:33] LABS: Glucose - Point of Care 92 mg/dl (70-99)
[2024-06-08 03:44] LABS: COVID-19 Antigen Negative (Negative)
[2024-06-08 03:44] LABS: Blood Urea Nitrogen 11 mg/dl (7-17); Calcium 8.5 mg/dl (8.4-10.2); Carbon Dioxide 34 mmol/L (22-30); Chloride 101 mmol/L (98-107); Estimated Creatinine Clearance 83 ml/min; Glucose 99 mg/dl (70-99); Magnesium 1.9 mg/dl (1.6-2.3); Potassium 4.1 mmol/L (3.5-5.1); Sodium 139 mmol/L (135-145); eGFR > 60.00
--- NOTE | 2024-06-08 04:30 | PTCARENOTE ---
[id number] Pt woke up grunting, audible wheezing, chest tightness, increased work of breathing, using accessory muscles. Unable to form full sentences when speaking. Pt stated she was 'having trouble breathing.' POX 94% on 4L NC. RR upper 20's. BP
60's-90's/40-50's. HR 40's-50's SB. Lina CHAPA TT'd and updated on above. Stated she would be up to see pt. Placed order for IV Decadron 10mg, IV Benadryl 25mg and IM Epi with 500ml NS bolus. PCR ordered and obtained. Will treat pt for allergic
reaction to new IV antibiotic Avycax. Stat labs ordered and obtained. ABG obtained. BS 92. Pt placed on BIPAP 14/8/6L POX 97%. Once placed on BIPAP pt much more comfortable breathing. Per STUDIO CONTROL OPERATOR will hold next dose (0600) antibiotic. BP's continued to
be low. Two more additional doses IM Epi ordered and given. Decision made for pt to be transferred to ICU for Epi gtt. Report given to BELTING CUTTER Pranay. Pt and all pt belongings sent to room 3368.
[2024-06-08] MEDS: [UNRECOGNIZED DRUG - OTHER] 62 MG IV ×3 (05:19→22:06)
--- NOTE | 2024-06-08 05:36 | PTCARENOTE ---
Kvng ordered and given. Pt sleeping afterwards. Will continue to monitor.
--- NOTE | 2024-06-08 06:00 | PTCARENOTE ---
Received pt. from IMU. Pt. upgraded to ICU over concerns of hypotension and worsening respiratory status. Epinephrine gtt ordered, but not needed at this time. Blood pressure appears to be normotensive upon arrival to ICU. ABG was drawn prior to
transfer. Respiratory therapist placed bipap on patient. Vital signs stable at this time.
[2024-06-08] MEDS: PEPCID 20 MG PO (07:50)
[2024-06-08] MEDS: ELIQUIS 5 MG PO ×2 (07:50→20:29)
[2024-06-08] MEDS: DESENEX/MITRAZOL/ZEASORB 1 APPLIC TOPICAL ×2 (07:51→20:31)
[2024-06-08] MEDS: HYDROPHOR 1 APPLIC TOPICAL ×2 (07:51→22:21)
[2024-06-08] MEDS: BUMEX 2 MG IV (07:56)
[2024-06-08 08:03] LABS: Glucose - Point of Care 177 mg/dl (70-99)
[2024-06-08] MEDS: NOVOLOG FLEXPEN-LOW RESISTANCE 1 UNITS SC ×2 (08:27→12:19)
[2024-06-08 08:28] LABS: Glycohemoglobin (HgbA1c) 6.4 % (4.0-5.6)
--- NOTE | 2024-06-08 08:44 | W.PN.ID1 ---
Date of Service
Date of Service: June 08, 2024
Today's Communication
Continue ceftaz/avibactam. monitor closely.
Assessment / Plan
Acute mental status change
- suspect due to cefepime
- Mental status now improved off cefepime
RLE erythema/Suspected cellulitis
Recurrent lymphedema with exacerbation
Right LE chronic venous stasis wounds
Hx CVA/TIA
HTN
DVT/PE
Afib
HFpEF
hypothyroidism
BMI 38
Recommendations
Mental status back to baseline off cefepime.
Respiratory events possibly due to pulm edema. She tolerated 3rd dose of Avycaz without events.
Appreciate Final Canoe Inspector management.
RLE colonized with MDR-Pseudomonas.
Continue ceftaz/avibactam (Avycaz)2.5g IV q8h (d2) for now.
Continue with local care to the wound.
Continue with compressive modalities, along with lower extremity elevation to facilitate lymphatic drainage.
Monitor white count and temperature curve.
Chief Complaint
-: Cellulitis
Subjective / Review of Systems
Events noted yesterday and overnight. Stroke alert was called due to change in mental status, numbness and weakness of the left arm. Head CT negative for acute stroke. She was transferred to IMCU. Yesterday evening, developed wheezing, worsening
confusion, low blood pressure during Avycaz first infusion. Chest x-ray showed mild pulmonary edema. At midnight during second Avycaz infusion in developed wheezing. Patient was given epinephrine for possible anaphylaxis. She was transferred to
ICU. Symptoms deemed not due to antibiotic. She received the third dose of Avycaz early this morning without issues. Patient is more alert today. She could not recall events yesterday. No shortness of breath or cough at this time. No pain.
She is hungry and waiting for breakfast.
Vital Signs / Physical Exam
Vital Signs
Vital Signs
Temp Pulse Resp BP Pulse Ox
97.9 F 58 18 109/51 96
06/08/24 08:00 06/08/24 06:30 06/08/24 06:30 06/08/24 06:30 06/08/24 06:30
Physical Exam
Constitutional: No Acute Distress, Comfortable and Non-toxic
Eyes: No Conjunctival Hemorrhage and Sclera Anicteric
Cardiovascular: Regular Rate and S1/S2
Pulmonary: Clear
Gastrointestinal: Soft, Non Tender, Non Distended and Normal Bowel Sounds
Extremities: Edema (BLE lymphedema)
Wound: Other (Right Lower extremity dressing dry)
Neurological: AO x 3
Objective Data
Lab Data
Lab Results
06/08/24 03:10
06/08/24 06:00
PT Cancelled 06/08/24 06:00
INR Cancelled 06/08/24 06:00
APTT Cancelled 06/08/24 06:00
Estimated Creat Clear Cancelled 06/08/24 06:00
Most recent labs reviewed.
Micro Results:
06/08/24 03:09 Influenza Types A & B (DIANE) - Final
Nasal Swab Negative for Influenza A & B, NAAT
Negative results must be combined with clinical observations
and patient history.
Nucleic Acid Amplification test (NAAT)performed on the
[employer] platform.
06/07/24 CXR: Mild acute interstitial cardiogenic pulmonary edema.
Care Review
Plan reviewed with: Nurse
--- NOTE | 2024-06-08 09:14 | W.PN.HOSP.TC ---
Today's Communication/Plan
-
IV Bumex. IV antibiotics.
Assessment / Plan
Assessment / Plan
Physical exam:
General: Acute on chronically ill
HEENT: Normocephalic, Atraumatic and Moist Mucous Membranes
Respiratory: Bilateral coarse crackles; Negative Wheezes or Rhonchi
Cardiac: Regular Rhythm and S1/S2
GI: Soft, Nontender and Nondistended
Musculoskeletal: Right lower extremity erythema and serous drainage. Left AKA. No Clubbing, No Cyanosis
Neuro: Awake, Alert and Oriented. No neurological deficits appreciated
Psych: Anxious
A/P:
Acute hypoxic respiratory failure:
Overnight felt to be related to allergic reaction to antibiotic but most likely related to pulmonary edema/pleural effusion
Transferred to ICU
Continue IV diuresis
Dry Color Tester consulted
ID feels we can continue with current antibiotics for now
On BiPAP overnight but now on supplemental oxygen
Seen and reviewed chest x-ray and agree pulmonary edema features
Continue monitor respiratory status
Acute suspected diastolic congestive heart failure:
Continue IV diuresis
Plan to update echocardiogram
Continue monitor ins and out Daily weight
Pleural effusions:
Continue diuresis
Follow-up chest x-ray down the road after diuresis to see if she requires thoracentesis if she fails to improve
Acute changes of sensorium/mental status changes--> differential includes CVA/TIA versus C7-8 radiculopathy versus adverse event of antibiotic and other medications:
Not a candidate for thrombolytics-patient on anticoagulant and took last dose this morning.
Neurology consulted stat yesterday and came and evaluated at bedside along with myself.
On Eliquis and statin
Plan for CT of the head--> seen by myself and discussed with radiology and no acute pathology
Will update echocardiogram
Changed antibiotics
Cardiac monitoring
Continue NIH and neurochecks
PT OT and speech therapy eval
Discussed with at bedside yesterday
Holding medications that can alter mentation
Right lower extremity cellulitis in the setting of right lower extremity lymphedema and venous stasis:
ID stopped IV cefepime and changed to Ceftazidime-Avibactam.
ID consult appreciated
Compression stockings
Continue to monitor clinical course
Paroxysmal A-fib:
On anticoagulation of Eliquis
On rate control of nadolol
Cardiac monitoring
History of DVT/PE:
On anticoagulation
Hypertension:
Continue home antihypertensive
Hyperlipidemia:
Continue statin, atorvastatin 40 mg p.o. nightly
Restless leg syndrome:
On Requip
DVT prophylaxis:
On Eliquis
CODE STATUS:
Full code
Total time spent on today's encounter was 52 minutes which included time spent in counseling the patient/family regarding diagnosis and treatment plan as listed above, goals of care, and symptom management. Case was discussed with nursing staff,
specialists, and care coordinators/case management. All labs and imaging personally reviewed by me. Remainder the time spent in detailed review of previous records, lab data, imaging, and other medical provider documentation.
Anticipated Discharge: > 48 hours
Subjective/Interval History
-
Date of Service: June 08, 2024
Patient was transferred overnight for increased shortness of breath. This morning less short of breath. She is also alert and oriented. Afebrile
Objective Data
-
Labs:
Laboratory Results
06/08/24 06/08/24 06/08/24
03:10 03:17 06:00
WBC 8.2
Hgb 11.5 L
Hct 37.3
Plt Count 262
PT Cancelled
INR Cancelled
APTT Cancelled
HCO3 34.5 H
Sodium 139 Cancelled
Potassium 4.1 Cancelled
Chloride 101 Cancelled
Carbon Dioxide 34 H Cancelled
BUN 11 Cancelled
Creatinine 0.5 L Cancelled
Glucose 99 Cancelled
Calcium 8.5 Cancelled
Vital Signs:
Vital Signs
Temp Pulse Resp BP Pulse Ox
97.9 F 78 24 123/58 97
06/08/24 08:00 06/08/24 09:00 06/08/24 09:00 06/08/24 09:00 06/08/24 09:00
I&O
06/07/24 06/08/24 06/09/24
06:59 06:59 06:59
Intake Total 480 / 480 786 / 786
Output Total 500 / 500 650 / 650
Balance 480 / 480 286 / 286 -650 / -650
--- NOTE | 2024-06-08 09:28 | CON.INTV ---
Consultation
Consultation Request
Date/Time Consultation Requested: 06/08/2024
Date/Time Consultation Performed: 06/08/2024
Requesting Provider: Dotty Ely
Performing Provider: Korina Joyner
Reason for Consultation: Respiratory failure
Medical History
-
Chief Complaint: Shortness of breath
History of Present Illness:
Patient is a very pleasant 83-year-old female with significant past medical history of paroxysmal A-fib, heart failure with preserved ejection fraction, restrictive lung disease, restless leg syndrome as well as chronic venous stasis ulcer in the
lower extremity with colonization with multidrug-resistant Pseudomonas. Patient has history of left AKA and has ongoing lymphedema with venous stasis wounds on the right side. Patient was admitted to the hospital for concern of lower extremity
ulcer infection, cellulitis. She was admitted and was started on cefepime with her known history of Pseudomonas in the past.
Yesterday neurology service was involved for concern of stroke considering encephalopathy symptoms. CT head was unremarkable, patient already anticoagulated with Eliquis, it was felt that symptoms might be related to cefepime which was changed to
Avycaz. Overnight overnight patient developed increased shortness of breath, wheezing and was given BiPAP BiPAP and transferred to ICU. There was initially a concern for possible anaphylaxis and patient was given epinephrine, felt to be related to
Avycaz.
In the ICU, patient was not noted to have any rash, angioedema, urticaria or spasm. X-ray was suggestive of pulmonary edema and she responded well to BiPAP. Patient did not require any epinephrine infusion either. Presentation was probably more
likely related to heart failure with pulmonary edema rather than anaphylaxis. Of note patient received her next dose of Avycaz this morning without any problem problems. After transferring patient to ICU, music mixer consultation was requested for
further input.
Past Medical History
Past Medical History: Reports Other
Additional Past Medical History:
CVA
PE/DVT
atrial fibrillation on Eliquis
chronic HFpEF
hypertension
hyperlipidemia
GERD
restless leg syndrome
spinal stenosis
neuropathy
Past Surgical History: Reports Other
Additional Past Surgical History:
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
partial thyroidectomy
Cervical-lumbar fusion
right shoulder replacement 2014
left knee replacement
Right knee replacement
Social History
Tobacco: Non-smoker
Alcohol: None
Drug: None
Personal:
Living: With Family
Family History
Family History: Not pertinent
Allergies / Home Medications
Allergies / Home Medications
Allergies
Allergy/AdvReac Type Severity Reaction Status Date / Time
adhesive [Adhesive] Allergy Itching/RED Verified 03/31/24 19:37
NESS
Aminoglycosides Allergy Pharmacy Verified 03/31/24 19:37
to Review
azithromycin [Azithromycin] Allergy patient Verified 03/31/24 19:37
denies
celecoxib [From Celebrex] Allergy started to Verified 03/31/24 19:37
break out
with sores
doxycycline Allergy Unknown Verified 03/31/24 19:37
erythromycin base Allergy CHEST PAIN Verified 03/31/24 19:37
furosemide [From Lasix] Allergy 'just Verified 03/31/24 19:37
doesn't
feel good'
- takes
bumetanide
at home
09/04/23
kanamycin Allergy Unknown Verified 03/31/24 19:37
latex Allergy Rash Verified 06/05/24 11:43
ciprofloxacin [From Cipro] AdvReac dizziness Verified 04/01/24 12:18
Home Medications
�Medication �Instructions �Recorded �Confirmed �Last Taken �Type
atorvastatin 40 mg tablet (Lipitor) 40 mg PO HS High cholesterol 06/22/20 06/05/24 06/04/24 History
ropinirole 2 mg tablet 8 mg PO TID Neurological Condition 07/25/22 06/05/24 06/05/24 History
apixaban 5 mg tablet (Eliquis) 5 mg PO BID Blood Clot 04/04/23 06/05/24 06/05/24 History
Prevention/Tx
nadolol 40 mg tablet 40 mg PO HS Blood Pressure 04/04/23 06/05/24 06/04/24 History
omeprazole 40 mg capsule,delayed 40 mg PO DAILY Gastrointestinal 04/04/23 06/05/24 06/05/24 History
release Issue
pregabalin 150 mg capsule 150 mg PO BID Neurological 04/04/23 06/05/24 06/05/24 History
Condition
albuterol sulfate 90 mcg/actuation 2 puff inhalation R Q4HPRN PRN sob 01/17/24 06/05/24 Unknown History
aerosol inhaler wheezing
tramadol 50 mg tablet 50 mg PO Q8HPRN PRN moderate pain 03/18/24 06/05/24 Unknown History
miconazole nitrate 2 % topical 1 applic topical BID folds,reddness 06/05/24 06/05/24 Unknown History
powder (Miconazorb AF)
Review of Systems
-
Hematologic/Lymphatic: Other (All 14 systems reviewed and negative except as stated above in the history of present illness.)
Vitals / Labs / Diagnostic Testing
Vital Signs
Temp Pulse Resp BP Pulse Ox
97.9 F 78 24 123/58 97
06/08/24 08:00 06/08/24 09:00 06/08/24 09:00 06/08/24 09:00 06/08/24 09:00
Lab Data
06/08/24 03:10
06/08/24 06:00
Laboratory Results
06/08/24 06/08/24
03:17 06:00
PT Cancelled
INR Cancelled
APTT Cancelled
pH 7.32 L
pCO2 67 H
pO2 76 L
HCO3 34.5 H
O2 Delivery Level
Microbiology
06/08/24 03:09 Nasal Swab Influenza Types A & B (DIANE) - Final
Negative for Influenza A & B, NAAT
Negative results must be combined with clinical observations
and patient history.
Nucleic Acid Amplification test (NAAT)performed on the
[employer] NOW platform.
Diagnostic Testing:
Physical Exam
-
HEENT: Normocephalic
Cardiovascular: S1/S2
Respiratory: Rales
GI: Soft and Non Distended
Neurology: Awake and Alert
Skin: Warm
General: Comfortable
Assessment
-
#1. Acute respiratory distress, due to pulmonary edema. Presentation is not suggestive of bronchospasm or anaphylaxis.
- Patient required BiPAP overnight, now transitioning to nasal cannula
- Exam suggestive of bilateral crackles, imaging suggestive of volume overload as well as left-sided pleural effusion
- Bumex 2 mg IV stat, followed by 1 mg IV twice daily
#2. Acute on chronic heart failure with preserved ejection fraction. EF 65 to 70% with LVH in 2022.
- Bumex 2 mg IV stat followed by 1 mg IV twice daily
- BNP in a.m., strict input and output
- Repeat echocardiogram for further evaluation
#3. Small left-sided pleural effusion. I suspect this is related to volume overload
- Continue IV diuresis and follow-up imaging in about 48 hours to see if patient needs thoracentesis
#4. Acute metabolic encephalopathy. Suspect this is in the setting of sepsis with lower extremity infection.
- Other contributing factors are possible cefepime therapy which has since been discontinued.
- Patient is also on Lyrica 150 mg p.o. twice daily as well as Requip 0.8 mg p.o. 3 times daily with as needed tramadol, all of which can also be contributing. Hold Lyrica, Requip and tramadol
- CT head unremarkable. Neurology service on the case. Presentation more suggestive of metabolic encephalopathy rather than CVA
#5. History of obstructive sleep apnea. Poor tolerance of CPAP in the past. Patient is not currently on PAP therapy
-Continue continue outpatient follow-up with Dr. Merida in pulmonary clinic
#6. Restrictive lung disease with suspected chronic mild hypercapnia. ABG 7.32, 67, 76, showing compensated hypercapnia.
- Pulmonary function testing from 2019 as well as spirometry from 2022 suggestive of restrictive lung disease with decreased DLCO 40% however DLCO corrected for VA was around 77%. I suspect that there is an extrapulmonary restriction related to
obesity
- Continue follow-up as outpatient with pulmonary clinic, patient needs repeat pulmonary function testing as well as 6-minute walk test
- Continue O2 support as needed, will assess for home oxygen need prior to discharge
- No prior history of smoking, no known COPD or emphysema
#7. History of mild intermittent asthma. Patient reportedly was on Breztri at home with as needed albuterol. Reports currently only using Breztri on an as-needed basis.
- DuoNeb 4 times daily while inpatient, resume respiratory at discharge, no indication for steroids
- Continue outpatient follow-up with [facility]
#8. Right lower extremity cellulitis, history of chronic venous ulcer with chronic colonization with MDR-Pseudomonas
- ID service on case. Patient was previously on cefepime however due to mental status changes was changed to Avycaz
#9. Paroxysmal atrial fibrillation.
- Continue Eliquis
- Lowered nightly nadolol dose by 50% to 20 mg in view of borderline blood pressure
#10. History of VTE (PE as well as DVT)
- Continue long-term anticoagulation with Eliquis
#11. History of restless leg syndrome, cervical radiculopathy as well as spinal stenosis.
- Temporarily hold Requip as well as Lyrica in view of metabolic encephalopathy
DVT prophylaxis, currently on Eliquis
Critical Care time 71 mins -- The patient is admitted for acute critical illness for the treatment of vital organ failure and/or prevention of further life-threatening conditions. Total care includes time spent in review of history, physical exam,
medications, hemodynamic/ventilator parameters, laboratory data, imaging and discussion with house staff, pharmacy, respiratory therapy, sergeant at arms, and nursing.
Data:
CXR 05/2024: Moderate left pleural effusion. Progressed. Mild acute interstitial pulmonary edema
Mild cardiomegaly. Stable
CT Chest 01/2024: Unremarkable. No PE noted
ECHO 07/2022: Normal left ventricular size and systolic function. No regional wall motion
abnormalities are seen. LV ejection fraction is 65-70% by Narvaez's method of
discs. Mild concentric left ventricular hypertrophy. Normal diastolic function.
Structurally normal mitral valve. Mitral valve opens normally. Moderate mitral
regurgitation.
Trileaflet aortic valve. Aortic sclerosis without stenosis. Trace aortic
regurgitation.
Since echocardiogram March 2020, there is no significant change.
PFT 01/03/20-FEV1 1.06-64%, FVC 1.4-63%, TLC 107%, RV 161%, DLCO 40%, DLCO/VA 77%. Moderate restriction on spirometry, some hyperinflation on lung volumes, and moderate reduction in diffusing capacity.
Spirometry 10/30/22-FEV1 1.05-64%, FVC 1.47-66%, no significant BD response. Mild to moderate restriction.
--- NOTE | 2024-06-08 10:37 | PTCARENOTE ---
Rec'd pt at 0700. Bipap removed by resp therapist and pt placed on 6LNC, weaned down to 2LNC at this time with pox 92-94%. Pt AAO to self only, states that she knows she isn't home but doesn't know where she is. Able to state name and .
Reoriented to place, time and situation. Follows commands, NIHSS-2, pt denies any numbness/tingling or loss of sensation. Monitor SR. SBP 90-120's. 2mg IV Bumex given, voiding large amt yellow urine. purewick in place.
--- NOTE | 2024-06-08 12:00 | PTCARENOTE ---
Pt's mental status improved throughout morning, back to baseline and no deficits noted. Pt OOB to recliner chair with PT/OT. Family at bedside, updated.
[2024-06-08 12:25] LABS: Glucose - Point of Care 178 mg/dl (70-99)
--- NOTE | 2024-06-08 12:44 | W.PN.NEURO.1 ---
Today's Communication / Plan
-
.
Subjective/Objective
Subjective Data
Date of Service: June 08, 2024
Neurology follow-up note
Ms. Thompson states that she has had chronic left hand numbness including IV-V digits since the time she started using wheelchair. She was told to have ulnar neuropathy at the elbow however she declined recommended decompression in the past. She
does not recall having sensory symptoms in her face yesterday. No reports of headaches, change in vision.
PMH:PA A-Fib, PE, HTN, DLP, IGT, HFpEF, hypothyroidism, BMI 29, PAD, RLS, history of spinal stenosis
PSH: C3-C7 ACDF, L1/L2 laminectomy IVC filter, L AKA, partial colectomy, right shoulder replacement, AMANDA, renal artery PTCI, L TKA, osteoporosis
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
ROS: Positive for chronic left hand numbness
General: Well developed. Sitting in a chair.
Cardio: iregular rate and rhythm without murmur. Extremities are without cyanosis or edema.
Neuro:
Mental Status: Alert, oriented to person, place, and date. Increased processing time. Preserved attention and comprehension. Follows complex requests.
Cranial Nerves: Pupils are equally round, surgical. EOMs full. Visual hurtado full to confrontation. No ptosis. No nystagmus. Face symmetric. Impaired hearing AU. The palate elevated well. SCMs and traps 5/5. Tongue midline. No dysarthria.
Motor: Normal bulk and tone. No pronator drift.
Reflexes: Limited due to position, cooperation.
Coordination: No dysmetria or tremor.
Gait: deferred
Assessment and Plan:
I. 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
II. Probable left C7-C8 radiculopathy.
III. Paroxysmal A-fib
IV. Mild encephalopathy.
-Limit activities that aggravate symptoms, such as repetitive elbow bending and straightening
- Consider nocturnal elbow splinting
-Outpatient neurology follow-up
- Please recall neurology services any questions or concerns
I personally reviewed all radiology and labs along with past medical records pertinent to current medical problems. Total time spent in patient care is 35 minutes.
Thank you for allowing us to participate in the care of this patient. Please do not hesitate to contact us with any questions or concerns.
Objective Data
Vital Signs
Temp Pulse Resp BP Pulse Ox
37.3 C 87 15 110/62 96
06/08/24 11:40 06/08/24 11:00 06/08/24 11:00 06/08/24 10:42 06/08/24 10:00
Lab Results
06/08/24 03:10
06/08/24 06:00
PT Cancelled 06/08/24 06:00
INR Cancelled 06/08/24 06:00
APTT Cancelled 06/08/24 06:00
Sodium Cancelled 06/08/24 06:00
Potassium Cancelled 06/08/24 06:00
BUN Cancelled 06/08/24 06:00
Glucose Cancelled 06/08/24 06:00
Calcium Cancelled 06/08/24 06:00
Phosphorus Cancelled 06/08/24 06:00
Patient Allergies
adhesive [Adhesive] Allergy (Verified 03/31/24 19:37)
Itching/REDNESS
Aminoglycosides Allergy (Verified 03/31/24 19:37)
Pharmacy to Review
azithromycin [Azithromycin] Allergy (Verified 03/31/24 19:37)
patient denies
celecoxib [From Celebrex] Allergy (Verified 03/31/24 19:37)
started to break out with sores
doxycycline Allergy (Verified 03/31/24 19:37)
Unknown
erythromycin base Allergy (Verified 03/31/24 19:37)
CHEST PAIN
furosemide [From Lasix] Allergy (Verified 03/31/24 19:37)
'just doesn't feel good' - takes bumetanide at home 09/04/23
kanamycin Allergy (Verified 03/31/24 19:37)
Unknown
latex Allergy (Verified 06/05/24 11:43)
Rash
ciprofloxacin [From Cipro] Adverse Reaction (Verified 04/01/24 12:18)
dizziness
Vital Signs and Labs
-
Vital Signs and Labs:
Vital Signs
Temp Pulse Resp BP Pulse Ox
37.3 C 87 15 110/62 96
06/08/24 11:40 06/08/24 11:00 06/08/24 11:00 06/08/24 10:42 06/08/24 10:00
Lab Results
06/08/24 03:10
06/08/24 06:00
PT Cancelled 06/08/24 06:00
INR Cancelled 06/08/24 06:00
APTT Cancelled 06/08/24 06:00
Sodium Cancelled 06/08/24 06:00
Potassium Cancelled 06/08/24 06:00
BUN Cancelled 06/08/24 06:00
Glucose Cancelled 06/08/24 06:00
Calcium Cancelled 06/08/24 06:00
Phosphorus Cancelled 06/08/24 06:00
Medications
-
Medications:
Generic Name Dose Route Start Last Admin
Trade Name Freq PRN Reason Stop Dose Admin
Acetaminophen 650 mg 06/05/24 17:37 06/07/24 07:27
Acetaminophen 325 Mg Tablet PO 07/03/24 17:36 650 mg
Q4HPRN PRN Administration
mild pain/TODD/temp> 100.4F
Albuterol 2 puff 06/05/24 17:37 06/08/24 00:06
Albuterol Hfa [90 Mcg/Dose] Inhaler INH 2 puff
R Q4HPRN PRN Administration
sob wheezing
Protocol
Apixaban 5 mg 06/05/24 20:00 06/08/24 07:50
Apixaban (Eliquis) 5 Mg Tablet PO 07/03/24 19:59 5 mg
BID AFIA Administration
Atorvastatin Calcium 40 mg 06/05/24 22:00 06/07/24 22:28
Atorvastatin (Lipitor) 40 Mg Tablet PO 07/03/24 21:59 40 mg
HS AFIA Administration
Bisacodyl 10 mg 06/05/24 17:37
Bisacodyl 10 Mg Rectal Suppository RECTAL 07/03/24 17:36
[id number] PRN
constipation
Bumetanide 1 mg 06/08/24 20:00
Bumetanide (0.25 Mg/1 Ml) 4 Ml Vial IV 07/06/24 19:59
BID AFIA
Dextrose 12.5 grams 06/07/24 14:09
Dextrose 50% (0.5 Grams/Ml) 50 Ml Syringe IV 07/05/24 14:08
[id number] PRN
hypoglycemia
Protocol
Emollient Ointment 0 applic 06/06/24 20:00 06/08/24 07:51
Petrolatum/Mineral Oil (Hydrophor) Oint 100 Gram TOPICAL 07/04/24 19:59 1 applic
BID AFIA Administration
Famotidine 20 mg 06/06/24 08:00 06/08/24 07:50
Famotidine 20 Mg Tablet PO 07/04/24 07:59 20 mg
DAILY AFIA Administration
Glucagon 1 mg 06/07/24 14:09
Glucagon 1 Mg Vial IM 07/05/24 14:08
PRN PRN
hypoglycemia
Protocol
Ceftazidime/Avibactam 2,500 mg 62 mls @ 20.667 mls/hr 06/07/24 14:00 06/08/24 05:19
/ Sodium Chloride IV 62 mls
Q8H AFIA Administration
Norepinephrine Bitartrate 4 mg in 250 mls @ 0 mls/hr 06/08/24 07:45
Levophed IV
PER PROTOCOL AFIA
Protocol
Per Protocol
Insulin Aspart 0 units 06/07/24 16:30 06/08/24 12:19
Insulin Aspart Low Resistance 300 Units/3 Ml Pen.Injctr SC 07/05/24 16:29 1 units
AC AFIA Administration
Protocol
Miconazole Nitrate 0 applic 06/05/24 20:00 06/08/24 07:51
Miconazole Powder Bottle TOPICAL 07/03/24 19:59 1 applic
BID AFIA Administration
Nadolol 40 mg 06/05/24 22:00 06/07/24 23:06
Nadolol 20 Mg Tablet PO 07/03/24 21:59 Not Given
HS AFIA
Nadolol 20 mg 06/08/24 22:00
Nadolol 20 Mg Tablet PO 07/06/24 21:59
HS AFIA
Polyethylene Glycol 17 grams 06/05/24 17:37
Polyethylene Glycol Powder 17 Grams Packet PO 07/03/24 17:36
DAILYPRN PRN
constipation
Pregabalin 150 mg 06/05/24 20:00 06/07/24 19:21
Pregabalin 75 Mg Capsule PO 07/03/24 19:59 150 mg
BID AFIA Administration
Ropinirole HCl 8 mg 06/05/24 17:37 06/07/24 22:28
Ropinirole 2 Mg Tablet PO 07/03/24 17:36 8 mg
TID AFIA Administration
Senna/Docusate Sodium 1 tablet 06/05/24 17:37
Docusate W/Senna (Samantha-Colace) Tablet PO 07/03/24 17:36
BIDPRN PRN
constipation
Sodium Chloride 0 flush 06/05/24 18:00 06/08/24 02:48
Sodium Chloride 0.9% (Flush) Syringe IV 07/03/24 17:59 3 flush
PER PROTOCOL AFIA Administration
Tramadol HCl 50 mg 06/05/24 17:37
Tramadol Hcl 50 Mg Tablet PO 07/03/24 17:36
Q8HPRN PRN
moderate pain
Home Medications
-
Home Medications
atorvastatin 40 mg tablet (Lipitor) 40 mg PO HS High cholesterol 06/22/20
ropinirole 2 mg tablet 8 mg PO TID Neurological Condition 07/25/22
apixaban 5 mg tablet (Eliquis) 5 mg PO BID Blood Clot Prevention/Tx 04/04/23
nadolol 40 mg tablet 40 mg PO HS Blood Pressure 04/04/23
omeprazole 40 mg capsule,delayed release 40 mg PO DAILY Gastrointestinal Issue 04/04/23
pregabalin 150 mg capsule 150 mg PO BID Neurological Condition 04/04/23
albuterol sulfate 90 mcg/actuation aerosol inhaler 2 puff inhalation R Q4HPRN PRN sob wheezing 01/17/24
tramadol 50 mg tablet 50 mg PO Q8HPRN PRN moderate pain 03/18/24
miconazole nitrate 2 % topical powder (Miconazorb AF) 1 applic topical BID folds,reddness 06/05/24
--- NOTE | 2024-06-08 15:10 | CHAP ---
Visited with Abi at 11am. She shared thoughts and feelings about her present situation, and also stories from the past. Emotional and spiritual support provided.
--- NOTE | 2024-06-08 16:17 | PTCARENOTE ---
Pt back to bed at this time. RLE wound care completed. Pericare provided and purewick applied.
[2024-06-08 17:31] LABS: Glucose - Point of Care 223 mg/dl (70-99)
[2024-06-08] MEDS: NOVOLOG FLEXPEN-LOW RESISTANCE 2 UNITS SC (17:47)
[2024-06-08] MEDS: LYRICA 150 MG PO (20:30)
[2024-06-08] MEDS: BUMEX 1 MG IV (20:32)
[2024-06-08] MEDS: FLUSH (NSS) 1 FLUSH IV (20:33)
[2024-06-08] MEDS: REQUIP 8 MG PO (21:04)
[2024-06-08] MEDS: LIPITOR 40 MG PO (21:05)
[2024-06-08] MEDS: CORGARD 20 MG PO (21:06)
--- NOTE | 2024-06-08 21:23 | PTCARENOTE ---
Report received from previous shift RN [id number]. Pt in bed, AAO3. Pt anxious at times. Pt concerned about home medications that had been placed on hold; had discussion w game programmer LABOR RELATIONS SPECIALIST Dillon, LABOR RELATIONS SPECIALIST reactivated medications. Lung sounds with slight exp
wheeze b/l posteriorly, decreased b/l base with fine crackles in R base. Oc cough, pox 94-95% on 2L O2 nasal cannula. Telemetry rhythm reveals SR, HR 80-90's, edema noted in RLE, palpable peripheral pulses present. +BS, abdomen soft nontender obese,
denies nausea, tolerating ordered diet. Purewick device in place, pt voiding yellow urine. Skin as documented. R hand and L AC int's flushed and patent, capped. Safe environment maintained, will continue to monitor closely.
[2024-06-08] MEDS: FLUSH (NSS) 2 FLUSH IV (22:06)
[2024-06-08 22:22] LABS: Glucose - Point of Care 209 mg/dl (70-99)
--- NOTE | 2024-06-08 23:39 | PTCARENOTE ---
RLE wound care performed per order. Complete CHG bath provided, assisted pt with oral hygiene and exchanged Purewick device. Pt able to reposition self in bed. No change in assessment. Will continue to monitor closely.
[2024-06-09] VITALS (12 sets, daily range): BP systolic 90–129; BP diastolic 41–84; BMI 28.5
--- NOTE | 2024-06-09 04:30 | PTCARENOTE ---
Pt sleeping intermittently throughout the night. Pt requested 'next dose of Requip' at 0400, pt informed next dose was scheduled for 0800. Spoke w resource agent HARRIETT, HARRIETT Carranza states can give 0800 around 0600 and instructed pt to discuss
dosing/schedule with rounding MD this AM.
No complaints offered at this time. Will monitor.
[2024-06-09 04:32] LABS: % Basophils 0.1 % (0-2); % Immature Granulocytes 0.4 % (0-0.5); % Lymphocytes 15.2 % (20.5-51.1); % Monocytes 3.7 % (1.7-9.3); % Neutrophils 80.6 % (42.2-75.2); Absolute Lymphocytes 1.5 10^3/uL (1.2-3.4); Absolute Monocytes 0.4 10^3/uL (0.1-0.6); Absolute Neutrophils 7.9 10^3/uL (1.4-6.5); Mean Corp Hgb Conc. 30.6 g/dL (33.0-37.0); Mean Corpuscular Hgb 25.3 pg (27.0-31.0); Mean Corpuscular Volume 82.8 fL (81.0-99.0); Mean Platelet Volume 9.2 fL (7.4-10.4); Nucleated Red Blood Cells % 0 %; Platelet Count 302 10^3/uL (130-400); Red Blood Cell Count 4.35 10^6/uL (4.20-5.40); Red Cell Dist. Width 15.6 % (11.5-14.5); White Blood Cell Count 9.8 10^3/uL (4.8-10.8)
[2024-06-09 04:56] LABS: Blood Urea Nitrogen 19 mg/dl (7-17); Calcium 8.4 mg/dl (8.4-10.2); Carbon Dioxide 37 mmol/L (22-30); Chloride 95 mmol/L (98-107); Estimated Creatinine Clearance 84 ml/min; Glucose 145 mg/dl (70-99); Potassium 3.8 mmol/L (3.5-5.1); Sodium 139 mmol/L (135-145); eGFR > 60.00
[2024-06-09] MEDS: REQUIP 8 MG PO ×3 (05:57→21:47)
[2024-06-09] MEDS: [UNRECOGNIZED DRUG - OTHER] 62 MG IV ×3 (05:58→21:47)
[2024-06-09] MEDS: FLUSH (NSS) 1 FLUSH IV (05:59)
[2024-06-09] MEDS: NOVOLOG FLEXPEN-LOW RESISTANCE 1 UNITS SC (07:30)
--- NOTE | 2024-06-09 07:33 | W.PN.INTV ---
Today's Communication / Plan
Recommendations
Wean FiO2
Echocardiogram pending
Diuresis
Follow radiographically and consider thoracentesis if effusion does not improve or worsens
Antibiotics for cellulitis per infectious disease
Stable for transfer out of ICU-online media buyer will sign off-pulmonary will continue to follow briefly
Assessment
-
Patient is a very pleasant 83-year-old female with significant past medical history of paroxysmal A-fib, heart failure with preserved ejection fraction, restrictive lung disease, restless leg syndrome as well as chronic venous stasis ulcer in the
lower extremity with colonization with multidrug-resistant Pseudomonas. Patient has history of left AKA and has ongoing lymphedema with venous stasis wounds on the right side. Patient was admitted to the hospital for concern of lower extremity
ulcer infection, cellulitis. She was admitted and was started on cefepime with her known history of Pseudomonas in the past.
Yesterday neurology service was involved for concern of stroke considering encephalopathy symptoms. CT head was unremarkable, patient already anticoagulated with Eliquis, it was felt that symptoms might be related to cefepime which was changed to
Avycaz. Overnight overnight patient developed increased shortness of breath, wheezing and was given BiPAP BiPAP and transferred to ICU. There was initially a concern for possible anaphylaxis and patient was given epinephrine, felt to be related to
Avycaz.
In the ICU, patient was not noted to have any rash, angioedema, urticaria or spasm. X-ray was suggestive of pulmonary edema and she responded well to BiPAP. Patient did not require any epinephrine infusion either. Presentation was probably more
likely related to heart failure with pulmonary edema rather than anaphylaxis. Of note patient received her next dose of Avycaz this morning without any problem problems. After transferring patient to ICU, online media buyer consultation was requested for
further input.
Past Medical History
Past Medical History: Reports Other
Additional Past Medical History:
CVA
PE/DVT
atrial fibrillation on Eliquis
chronic HFpEF
hypertension
hyperlipidemia
GERD
restless leg syndrome
spinal stenosis
neuropathy
Past Surgical History: Reports Other
Additional Past Surgical History:
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
partial thyroidectomy
Cervical-lumbar fusion
right shoulder replacement 2014
left knee replacement
Right knee replacement
#1. Acute respiratory distress, due to pulmonary edema. Presentation is not suggestive of bronchospasm or anaphylaxis.
- Patient required BiPAP overnight, now transitioned to nasal cannula
- Exam suggestive of bilateral crackles, imaging suggestive of volume overload as well as left-sided pleural effusion
- Bumex 2 mg continues
#2. Acute on chronic heart failure with preserved ejection fraction. EF 65 to 70% with LVH in 2022.
- Bumex initiated
- BNP in a.m., strict input and output
- Echo pending
#3. Small left-sided pleural effusion. I suspect this is related to volume overload
- Continue IV diuresis and follow-up imaging in about 48 hours to see if patient needs thoracentesis
#4. Acute metabolic encephalopathy. Suspect this is in the setting of sepsis with lower extremity infection.
- Other contributing factors are possible cefepime therapy which has since been discontinued.
- Patient is also on Lyrica 150 mg p.o. twice daily as well as Requip 0.8 mg p.o. 3 times daily with as needed tramadol, all of which can also be contributing. Hold Lyrica, Requip and tramadol
- CT head unremarkable. Neurology service on the case. Presentation more suggestive of metabolic encephalopathy rather than CVA
#5. History of obstructive sleep apnea. Poor tolerance of CPAP in the past. Patient is not currently on PAP therapy
-Continue continue outpatient follow-up with Dr. Nassar in pulmonary clinic
#6. Restrictive lung disease with suspected chronic mild hypercapnia. ABG 7.32, 67, 76, showing compensated hypercapnia.
- Pulmonary function testing from 2019 as well as spirometry from 2022 suggestive of restrictive lung disease with decreased DLCO 40% however DLCO corrected for VA was around 77%. I suspect that there is an extrapulmonary restriction related to
obesity
- Continue follow-up as outpatient with pulmonary clinic, patient needs repeat pulmonary function testing as well as 6-minute walk test
- Continue O2 support as needed, will assess for home oxygen need prior to discharge
- No prior history of smoking, no known COPD or emphysema
#7. History of mild intermittent asthma. Patient reportedly was on Breztri at home with as needed albuterol. Reports currently only using Breztri on an as-needed basis.
- DuoNeb 4 times daily while inpatient, resume respiratory at discharge, no indication for steroids
- Continue outpatient follow-up with [facility]
#8. Right lower extremity cellulitis, history of chronic venous ulcer with chronic colonization with MDR-Pseudomonas
- ID service on case. Patient was previously on cefepime however due to mental status changes was changed to Avycaz
#9. Paroxysmal atrial fibrillation.
- Continue Eliquis
- Lowered nightly nadolol dose by 50% to 20 mg in view of borderline blood pressure
#10. History of VTE (PE as well as DVT)
- Continue long-term anticoagulation with Eliquis
#11. History of restless leg syndrome, cervical radiculopathy as well as spinal stenosis.
- Temporarily hold Requip as well as Lyrica in view of metabolic encephalopathy
DVT prophylaxis, currently on Eliquis A
Reviewed with hospitalist and [facility] nursing, [facility] pharmacy
First saw Dr. Rachel Cassidy 01/14/[address] Merida 10/30/2022 as well as 01/02/2023 and canceled appointment with 01/01/2024
Patient stable hemodynamically and respiratory blackwell and could be transferred out of ICU-pulmonary will follow briefly
Data:
CXR 05/2024: Moderate left pleural effusion. Progressed. Mild acute interstitial pulmonary edema
Mild cardiomegaly. Stable
CT Chest 01/2024: Unremarkable. No PE noted
ECHO 07/2022: Normal left ventricular size and systolic function. No regional wall motion
abnormalities are seen. LV ejection fraction is 65-70% by Narvaez's method of
discs. Mild concentric left ventricular hypertrophy. Normal diastolic function.
Structurally normal mitral valve. Mitral valve opens normally. Moderate mitral
regurgitation.
Trileaflet aortic valve. Aortic sclerosis without stenosis. Trace aortic
regurgitation.
Since echocardiogram March 2020, there is no significant change.
PFT 01/03/20-FEV1 1.06-64%, FVC 1.4-63%, TLC 107%, RV 161%, DLCO 40%, DLCO/VA 77%. Moderate restriction on spirometry, some hyperinflation on lung volumes, and moderate reduction in diffusing capacity.
Spirometry 10/30/22-FEV1 1.05-64%, FVC 1.47-66%, no significant BD response. Mild to moderate restriction.
Subjective Dataa
Subjective Data
Date of Service:
Date of Service: June 09, 2024
Chief Complaint: Selvage Machine Operator Follow Up and Pulmonary Follow Up
Subjective:
No complaints of shortness of breath, chest pain, chest congestion, productive cough, some postnasal drip, occasional wheezing
Review of Systems
General: Other (Per HPI)
Objective Data
Data Reviewed
Vital Signs / I&O / Oxygen:
Vital Signs
Temp Pulse Resp BP Pulse Ox
97.9 F 72 16 112/41 95
06/09/24 03:45 06/09/24 06:15 06/09/24 06:15 06/09/24 06:15 06/09/24 06:15
Intake and Output
06/08/24 06/09/24 06/10/24
06:59 06:59 06:59
Intake Total 786 / 786 604 / 604
Output Total 500 / 500 2650 / 2650
Balance 286 / 286 -2045 / -2045
SaO2 95
Nasal Cannula flow liters per 2
minute
Physical Exam
General: Respiratory Distress (n) and Comfortable
HEENT: Normocephalic, Anicteric and Moist Mucous Membranes
Cardiovascular: Regular Rhythm and Murmur
Respiratory: Wheeze (few expiratory), Crackles (basilar), Rhonchi, Non-Labored Respirations and Accessory Resp Muscle Use (n)
GI: Soft, Non Distended and Non Tender
Neurology: Awake and Alert
Skin: Warm, Good Color, Cyanosis (n) and Jaundice
Labs/Micro/Reports
Lab Data
06/09/24 04:18
06/09/24 04:18
Microbiology
06/08/24 03:09 Nasal Swab Influenza Types A & B (DIANE) - Final
Negative for Influenza A & B, NAAT
Negative results must be combined with clinical observations
and patient history.
Nucleic Acid Amplification test (NAAT)performed on the
[employer] platform.
[2024-06-09 07:37] LABS: Glucose - Point of Care 153 mg/dl (70-99)
[2024-06-09] MEDS: BUMEX 1 MG IV ×2 (07:58→20:29)
[2024-06-09] MEDS: DESENEX/MITRAZOL/ZEASORB 1 APPLIC TOPICAL ×2 (07:58→20:29)
[2024-06-09] MEDS: ELIQUIS 5 MG PO ×2 (08:00→20:29)
[2024-06-09] MEDS: HYDROPHOR 1 APPLIC TOPICAL ×2 (08:00→20:33)
[2024-06-09] MEDS: LYRICA 150 MG PO ×2 (08:00→20:29)
[2024-06-09] MEDS: PEPCID 20 MG PO (08:00)
--- NOTE | 2024-06-09 08:13 | W.PN.HOSP.TC ---
Today's Communication/Plan
-
Telemetry transfer
Echocardiogram
Assessment / Plan
Assessment / Plan
Gen-AAOx3, NAD
HEENT-NC, AT, anicteric, clear oral mm
Neck-supple
CV-reg, no M, +S1/S2
Lungs-clear B/L
Abd-soft, NT, ND
Ext-right lower extremity erythema with open wounds
Musculoskeletal-no cyanosis, clubbing
Skin-warm and dry
Neuro-grossly non-focal
Psych-calm, cooperative
Acute hypoxic respiratory failure -due to mild pulmonary edema, moderate left pleural effusion. Chest x-ray 06/08 noted. Oxygenation improved on IV Bumex.
Echocardiogram pending.
Acute suspected diastolic congestive heart failure:
Continue IV diuresis
Plan to update echocardiogram
Continue monitor ins and out Daily weight
Pleural effusions:
Continue diuresis
Follow-up chest x-ray down the road after diuresis to see if she requires thoracentesis if she fails to improve
Acute metabolic encephalopathy -suspect related to cefepime, now discontinued. Doubt stroke. CT head reviewed. No indication for carotid ultrasound. Discussed with neurology.
On Eliquis and statin
Changed antibiotics
Cardiac monitoring
Continue NIH and neurochecks
PT OT and speech therapy eval
Discussed with at bedside yesterday
Holding medications that can alter mentation
Right lower extremity cellulitis in the setting of right lower extremity lymphedema and venous stasis:
ID stopped IV cefepime and changed to Ceftazidime-Avibactam.
ID consult appreciated
Compression stockings
Continue to monitor clinical course
Paroxysmal A-fib:
On anticoagulation of Eliquis
On rate control of nadolol
Cardiac monitoring
Chronic left ulnar neuropathy -noted by neurology.
History of DVT/PE:
On anticoagulation
Essential hypertension:
Continue home antihypertensive
Hyperlipidemia:
Continue statin, atorvastatin 40 mg p.o. nightly
Restless leg syndrome:
On Requip
DVT prophylaxis:
On Eliquis
CODE STATUS:
Full code
PT/OT
Transfer to telemetry
Anticipated Discharge: > 48 hours
Subjective/Interval History
-
Date of Service: June 09, 2024
Patient seen and examined. No complaints.
Objective Data
-
Labs:
Laboratory Results
06/09/24
04:18
WBC 9.8
Hgb 11.0 L
Hct 36.0 L
Plt Count 302
Sodium 139
Potassium 3.8
Chloride 95 L
Carbon Dioxide 37 H
BUN 19 H
Creatinine 0.6
Glucose 145 H
Calcium 8.4
Vital Signs:
Vital Signs
Temp Pulse Resp BP Pulse Ox
98.5 F 61 12 100/78 94
06/09/24 07:40 06/09/24 07:36 06/09/24 07:36 06/09/24 07:36 06/09/24 07:40
I&O
06/08/24 06/09/24 06/10/24
06:59 06:59 06:59
Intake Total 786 / 786 604 / 604
Output Total 500 / 500 2650 / 2650
Balance 286 / 286 -2045 / -2045
Review of Systems
-
History Source: Patient
All other systems: Reviewed and negative
[2024-06-09] MEDS: TYLENOL 650 MG PO (09:11)
[2024-06-09] MEDS: ULTRAM 50 MG PO (09:11)
--- NOTE | 2024-06-09 10:19 | CM ---
Patient seen at bedside in ICU. Patient confirmed discharge to home with caregiver, . Patient recommendation per therapy is home PT. Per physician patient is for transition to telemetry. Patient has had [facility] in the past, will confirm ability
to accept. Patient has no Home O2 and may benefit from home O2 pending assessment closer to discharge. CM will continue to follow for discharge planning needs.
Plan; home with VN; watch for home O2 needs.
[2024-06-09] MEDS: ProAIR HFA INHALER 2 PUFF INH ×2 (10:22→20:17)
--- NOTE | 2024-06-09 11:19 | W.PN.ID1 ---
Date of Service
Date of Service: June 09, 2024
Today's Communication
Continue Avycaz for today.
Assessment / Plan
Acute mental status change
- Mental status improved. Not clear whether secondary to antibiotics or pulmonary edema given timeframe.
RLE erythema/Suspected cellulitis
Recurrent lymphedema with exacerbation
Right LE chronic venous stasis wounds
Hx CVA/TIA
HTN
DVT/PE
Afib
HFpEF
hypothyroidism
BMI 38
Recommendations
Mental status back to baseline.
Respiratory events possibly due to pulm edema. She tolerated 3rd dose of Avycaz without events.
Appreciate Dog Food Shredder Operator management.
RLE colonized with MDR-Pseudomonas.
Continue ceftaz/avibactam (Avycaz)2.5g IV q8h (d2) for now.
Continue with local care to the wound.
Continue with compressive modalities, along with lower extremity elevation to facilitate lymphatic drainage.
Monitor white count and temperature curve.
Chief Complaint
-: Cellulitis
Subjective / Review of Systems
Chart reviewed. Events over weekend noted. Patient currently reports breathing improved.
Vital Signs / Physical Exam
Vital Signs
Vital Signs
Temp Pulse Resp BP Pulse Ox
98.5 F 73 17 100/78 96
06/09/24 07:40 06/09/24 10:00 06/09/24 10:00 06/09/24 07:36 06/09/24 10:17
Physical Exam
Constitutional: No Acute Distress, Comfortable and Non-toxic
Eyes: No Conjunctival Hemorrhage and Sclera Anicteric
Cardiovascular: Regular Rate and S1/S2
Pulmonary: Clear
Gastrointestinal: Soft, Non Tender, Non Distended and Normal Bowel Sounds
Extremities: Edema (Right lower extremity)
Musculoskeletal: Other (Hx left AKA)
Wound: Other (Right Lower extremity dressing dry)
Neurological: AO x 3
Objective Data
Lab Data
Lab Results
06/09/24 04:18
06/09/24 04:18
PT Cancelled 06/08/24 06:00
INR Cancelled 06/08/24 06:00
APTT Cancelled 06/08/24 06:00
Estimated Creat Clear 84 ml/min 06/09/24 04:18
Most recent labs reviewed.
Micro Results:
06/08/24 03:09 Influenza Types A & B (DIANE) - Final
Nasal Swab Negative for Influenza A & B, NAAT
Negative results must be combined with clinical observations
and patient history.
Nucleic Acid Amplification test (NAAT)performed on the
[employer] platform.
06/07/24 CXR: Mild acute interstitial cardiogenic pulmonary edema.
[2024-06-09] MEDS: SENOKOT-S 1 TABLET PO (12:01)
[2024-06-09] MEDS: NOVOLOG FLEXPEN-LOW RESISTANCE SC ×2 (12:06→17:44)
[2024-06-09 12:11] LABS: Glucose - Point of Care 120 mg/dl (70-99)
--- NOTE | 2024-06-09 12:15 | PTCARENOTE ---
pt sat on commode for bm, unable to have bm. Reviewed bowel medication for pt, Dulcolax refused, pt opted for Senokot. otherwise no changes.
--- NOTE | 2024-06-09 12:17 | PTOTSP ---
Speech Therapy Evaluation:
Pt presents with grossly functional oropharyngeal swallow at bedside. No s/sx of aspiration observed across session. Despite this, pt with acute on chronic risk factors of dysphagia including restrictive lung disease, CVA, GERD, respiratory
distress, and mild encephalopathy. Currently WBC WNL and CXR without PNA.
Recommend:
1. Continue IDDSI Level 7 (regular solids) and thin liquids
2. Medications as tolerated
3. General aspiration and reflux precautions
4. PATIENT BILLER to follow to monitor tolerance of diet and determine if pt would benefit from instrumental assessment
--- NOTE | 2024-06-09 16:05 | PTCARENOTE ---
Pt back to bed after sitting up since prior to lunch. With 2 staff members, pt had been able to get herself from bed to commode, but was unable to get herself from commode to chair. After being up for about 4 hours, pt back to bed with staff at
bedside to assist. Tolerated well. New purewick placed when back in bed. Pt waiting for tele bed.
--- NOTE | 2024-06-09 16:28 | PTCARENOTE ---
pt sat on commode for bm, unable to have bm. Reviewed bowel medication for pt, dulcolax refused, pt opted for sennokot. otherwise no changes.
[2024-06-09 17:41] LABS: Glucose - Point of Care 115 mg/dl (70-99)
--- NOTE | 2024-06-09 17:48 | PTCARENOTE ---
after receiving afternoon dose of requip, pt dozed briefly then woke up mildly confused. has been forgetful at times t/o the day but mostly oriented and appropriate. redirected easily and in room and visiting
[2024-06-09 21:33] LABS: Glucose - Point of Care 152 mg/dl (70-99)
[2024-06-09] MEDS: LIPITOR 40 MG PO (21:47)
[2024-06-09] MEDS: CORGARD PO (22:34)
--- NOTE | 2024-06-09 22:34 | PTCARENOTE ---
Received pt resting in bed, AAOx3. Without complaints. SB/SR on tele, HR 50s-60s. HANDLE LATHE OPERATOR notified of bradycardia- ordered to hold HS dose of nadolol. BP stable. Afebrile. Trace RLE. On 1L NC. Spo2 95%. Lungs with exp wheezing anteriorly. Resp.
treatments given by RT. + bowel sounds. No BM this shift. Purewick draining yellow urine. RLE dsg change completed per orders. Bathed with CHG. Monitoring
--- NOTE | 2024-06-10 01:23 | PTCARENOTE ---
Pt. seems to be more forgetful as night as gone on. Speaking jibberish at times. She states when she can't sleep she gets like this. Repositioned in bed for comfort. She is playing cards in bed at this time. Monitoring
[2024-06-10 03:35] VITALS: BP 109/74
[2024-06-10 04:07] LABS: Hematocrit 38.9 % (37.0-47.0); Mean Corp Hgb Conc. 30.8 g/dL (33.0-37.0); Mean Corpuscular Hgb 25.6 pg (27.0-31.0); Mean Corpuscular Volume 83.1 fL (81.0-99.0); Mean Platelet Volume 9.1 fL (7.4-10.4); Platelet Count 313 10^3/uL (130-400); Red Blood Cell Count 4.68 10^6/uL (4.20-5.40); Red Cell Dist. Width 15.8 % (11.5-14.5); White Blood Cell Count 11.5 10^3/uL (4.8-10.8)
[2024-06-10 04:31] LABS: Blood Urea Nitrogen 26 mg/dl (7-17); Calcium 8.7 mg/dl (8.4-10.2); Chloride 91 mmol/L (98-107); Estimated Creatinine Clearance 82 ml/min; Glucose 107 mg/dl (70-99); Potassium 3.7 mmol/L (3.5-5.1); Sodium 139 mmol/L (135-145); eGFR > 60.00
[2024-06-10 04:43] LABS: Carbon Dioxide 41 mmol/L (22-30)
--- NOTE | 2024-06-10 05:31 | PTCARENOTE ---
Pt attempted to use bedpan twice without success but wished to get up to BSC. Stood and pivoted to BSC with 2 person assist. Had BM. Had difficulty getting back to bed, required more assistance. Pt. now sleeping. While sleeping, desatting to low
80s. O2 NC titrated up to 6L NC at this time. Spo2 91-96% while asleep. Was on 1L NC and spo2 94-95% while awake.
[2024-06-10 06:00] VITALS: BMI 29.5
[2024-06-10] MEDS: [UNRECOGNIZED DRUG - OTHER] 62 MG IV (06:10)
--- NOTE | 2024-06-10 07:15 | W.PN.PUL.V3 ---
Today's Communication / Plan
-
desaturates at nighttime to 78%
Hypoxemic even during the daytime-recommend supplemental oxygen [id number] at time of discharge
Follow left pleural effusion-can be done as an outpatient-consider thoracentesis if pleural fluid does not improve with diuresis-clinically much improved
Antibiotics discontinued by infectious disease
Monitor cellulitis
Stable for proposed discharge from a pulmonary perspective-outpatient pulmonary follow-up, outpatient supplemental oxygen
Assessment
-
Patient is a very pleasant 83-year-old female with significant past medical history of paroxysmal A-fib, heart failure with preserved ejection fraction, restrictive lung disease, restless leg syndrome as well as chronic venous stasis ulcer in the
lower extremity with colonization with multidrug-resistant Pseudomonas. Patient has history of left AKA and has ongoing lymphedema with venous stasis wounds on the right side. Patient was admitted to the hospital for concern of lower extremity
ulcer infection, cellulitis. She was admitted and was started on cefepime with her known history of Pseudomonas in the past.
Yesterday neurology service was involved for concern of stroke considering encephalopathy symptoms. CT head was unremarkable, patient already anticoagulated with Eliquis, it was felt that symptoms might be related to cefepime which was changed to
Avycaz. Overnight overnight patient developed increased shortness of breath, wheezing and was given BiPAP BiPAP and transferred to ICU. There was initially a concern for possible anaphylaxis and patient was given epinephrine, felt to be related to
Avycaz.
In the ICU, patient was not noted to have any rash, angioedema, urticaria or spasm. X-ray was suggestive of pulmonary edema and she responded well to BiPAP. Patient did not require any epinephrine infusion either. Presentation was probably more
likely related to heart failure with pulmonary edema rather than anaphylaxis. Of note patient received her next dose of Avycaz this morning without any problem problems. After transferring patient to ICU, firm administrator consultation was requested for
further input.
Past Medical History
Past Medical History: Reports Other
Additional Past Medical History:
CVA
PE/DVT
atrial fibrillation on Eliquis
chronic HFpEF
hypertension
hyperlipidemia
GERD
restless leg syndrome
spinal stenosis
neuropathy
Past Surgical History: Reports Other
Additional Past Surgical History:
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
partial thyroidectomy
Cervical-lumbar fusion
right shoulder replacement 2014
left knee replacement
Right knee replacement
#1. Acute respiratory distress, due to pulmonary edema. Presentation is not suggestive of bronchospasm or anaphylaxis.
- Patient required BiPAP overnight, now transitioned to nasal cannula-currently on 1 L
Nursing reports desaturations to 78% at nighttime
- Exam suggestive of bilateral crackles, imaging suggestive of volume overload as well as left-sided pleural effusion
- Bumex continues
Assess discharge supplemental oxygen needs-recommend [id number]-[id number] oxygen when discharge which can be weaned in the outpatient setting
#2. Acute on chronic heart failure with preserved ejection fraction. EF 65 to 70% with LVH in 2022.
- Bumex initiated
- BNP in a.m., strict input and output
- Echo /-EF 60-65%, mild mitral regurgitation, mild aortic stenosis, PA systolic 25-30
#3. Small-moderate left-sided pleural effusion. I suspect this is related to volume overload
- Continue IV diuresis and follow-up imaging if increased shortness of breath
#4. Acute metabolic encephalopathy. Suspect this is in the setting of sepsis with lower extremity infection.
- Other contributing factors are possible cefepime therapy which has since been discontinued.
- Patient is also on Lyrica 150 mg p.o. twice daily as well as Requip 0.8 mg p.o. 3 times daily with as needed tramadol, all of which can also be contributing. Hold Lyrica, Requip and tramadol
- CT head unremarkable. Neurology service on the case. Presentation more suggestive of metabolic encephalopathy rather than CVA
#5. History of obstructive sleep apnea. Poor tolerance of CPAP in the past. Patient is not currently on PAP therapy
-Continue continue outpatient follow-up with Dr. Nassar in pulmonary clinic
#6. Restrictive lung disease with suspected chronic mild hypercapnia. ABG 7.32, 67, 76, showing compensated hypercapnia.
- Pulmonary function testing from 2019 as well as spirometry from 2022 suggestive of restrictive lung disease with decreased DLCO 40% however DLCO corrected for VA was around 77%. I suspect that there is an extrapulmonary restriction related to
obesity
- Continue follow-up as outpatient with pulmonary clinic, patient needs repeat pulmonary function testing as well as 6-minute walk test
- Continue O2 support as needed, will assess for home oxygen need prior to discharge
- No prior history of smoking, no known COPD or emphysema
#7. History of mild intermittent asthma. Patient reportedly was on Breztri at home with as needed albuterol. Reports currently only using Breztri on an as-needed basis.
- DuoNeb 4 times daily while inpatient, resume respiratory at discharge, no indication for steroids
- Continue outpatient follow-up with [facility]
#8. Right lower extremity cellulitis, history of chronic venous ulcer with chronic colonization with MDR-Pseudomonas
- ID service on case. Patient was previously on cefepime however due to mental status changes was changed to Avycaz
#9. Paroxysmal atrial fibrillation.
- Continue Eliquis
- Lowered nightly nadolol dose by 50% to 20 mg in view of borderline blood pressure
#10. History of VTE (PE as well as DVT)
- Continue long-term anticoagulation with Eliquis
#11. History of restless leg syndrome, cervical radiculopathy as well as spinal stenosis.
- Temporarily hold Requip as well as Lyrica in view of metabolic encephalopathy
DVT prophylaxis, currently on Eliquis
Patient stable hemodynamically and respiratory blackwell and could be transferred out of ICU-pulmonary will follow briefly
First saw Dr. Rachel Cassidy 01/14/[address] Merida 10/30/2022 as well as 01/02/2023 and canceled appointment with 01/01/2024
Critical care statement: reviewed the patient's pertinent medical records including radiographs, microbiology, laboratory evaluations, and discussion with primary team, consultants, pharmacy, nutrition, physical therapy, case management, charge
nurse, critical care nursing, and respiratory therapy.
Data:
CXR 05/2024: Moderate left pleural effusion. Progressed. Mild acute interstitial pulmonary edema
Mild cardiomegaly. Stable
CT Chest 01/2024: Unremarkable. No PE noted
ECHO 07/2022: Normal left ventricular size and systolic function. No regional wall motion
abnormalities are seen. LV ejection fraction is 65-70% by Narvaez's method of
discs. Mild concentric left ventricular hypertrophy. Normal diastolic function.
Structurally normal mitral valve. Mitral valve opens normally. Moderate mitral
regurgitation.
Trileaflet aortic valve. Aortic sclerosis without stenosis. Trace aortic
regurgitation.
Since echocardiogram March 2020, there is no significant change.
PFT 01/03/20-FEV1 1.06-64%, FVC 1.4-63%, TLC 107%, RV 161%, DLCO 40%, DLCO/VA 77%. Moderate restriction on spirometry, some hyperinflation on lung volumes, and moderate reduction in diffusing capacity.
Spirometry 10/30/22-FEV1 1.05-64%, FVC 1.47-66%, no significant BD response. Mild to moderate restriction.
Subjective Data
-
Date of Service:
Date of Service: June 10, 2024
Chief Complaint: Pulmonary Follow Up and Dyspnea Follow Up
Subjective:
feels much improved 'I feel great', less short of breath, no chest pain or abdominal pain
Review of Systems
General: Other ( Per HPI)
Objective Data
Data Reviewed
Vital Signs / I&O:
Vital Signs
Temp Pulse Resp BP Pulse Ox
98.2 F 51 15 109/74 85
06/10/24 03:36 06/10/24 05:00 06/10/24 05:00 06/10/24 03:35 06/10/24 05:00
Intake and Output
06/09/24 06/10/24 06/11/24
06:59 06:59 06:59
Intake Total 604 / 604 1382 / 1382 80 / 80
Output Total 2650 / 2650 1450 / 1450
Balance -2046 / -2046 -68 / -68 80 / 80
SaO2: 85
Nasal Cannula flow liters per minute: 1
Physical Exam
General: Respiratory Distress (n) and Comfortable
HEENT: Normocephalic and Moist Mucous Membranes
Cardiovascular: Regular Rhythm and Murmur
Respiratory: Clear ( diminished breath sounds and prolonged expiratory time), Crackles ( basilar), Non-Labored Respirations, Accessory Resp Muscle Use (n) and Stridor (n)
GI: Soft, Non Distended and Non Tender
Neurology: Awake, Alert and No Motor Deficits
Skin: Warm, Good Color and Cyanosis (n)
Labs/Micro/Reports
Lab Data
06/10/24 03:52
06/10/24 03:52
Microbiology
06/08/24 03:09 Nasal Swab Influenza Types A & B (DIANE) - Final
Negative for Influenza A & B, NAAT
Negative results must be combined with clinical observations
and patient history.
Nucleic Acid Amplification test (NAAT)performed on the
[employer] platform.
[2024-06-10 07:50] LABS: Glucose - Point of Care 92 mg/dl (70-99)
--- NOTE | 2024-06-10 08:00 | PTCARENOTE ---
Assumed care of patient. Assessment documented. Breakfast ordered. Pt takes po meds without issue. Safe environment confirmed. Will continue to monitor.
--- NOTE | 2024-06-10 08:10 | W.PN.HOSP.TC ---
Addendum entered and electronically signed by Javier Vela DO 06/10/24 11:26:
Patient is in need of oxygen at 2 liters/minute via nasal cannula continuously due to pulse oximetry of 88% on room air at rest. Oxygen will help to improve hypoxemia. Patient is mobile within the home. DuoNeb therapy has been tried and is
ineffective in treating hypoxemia related symptoms. Oxygen is needed to improve symptoms.
Addendum entered and electronically signed by Javier Vela DO 06/10/24 09:29:
Infectious disease okay with discharge today. Antibiotics discontinued by ID.
Original Note:
Today's Communication/Plan
-
Change to oral Bumex
Assessment / Plan
Assessment / Plan
Gen-AAOx3, NAD
HEENT-NC, AT, anicteric, clear oral mm
Neck-supple
CV-reg, no M, +S1/S2
Lungs-clear B/L
Abd-soft, NT, ND
Ext-right lower extremity erythema with open wounds
Musculoskeletal-no cyanosis, clubbing
Skin-warm and dry
Neuro-grossly non-focal
Psych-calm, cooperative
Acute hypoxic respiratory failure -due to mild pulmonary edema, moderate left pleural effusion. Chest x-ray 06/08 noted. Oxygenation improved to 1 L. Wean down.
Acute heart failure preserved EF -clinically improved on IV Bumex. Can change to oral Bumex today. Echocardiogram shows LVEF 60 to 65%, normal regional wall motion, mild concentric LVH, normal diastolic function. Mild aortic stenosis.
She was prescribed Bumex in the past was up was only taking it as needed. Recommend outpatient follow-up with cardiology. She is known to Dr. Culp.
Moderate left pleural effusion -likely due to congestive heart failure.
Continue diuresis
Follow-up chest x-ray down the road after diuresis to see if she requires thoracentesis if she fails to improve
Acute metabolic encephalopathy -suspect related to cefepime, now discontinued. Doubt stroke. CT head reviewed. No indication for carotid ultrasound. Discussed with neurology.
On Eliquis and statin
Changed antibiotics
Cardiac monitoring
Continue NIH and neurochecks
Cleared for regular diet by speech therapy. PT recommends home PT.
Right lower extremity cellulitis in the setting of right lower extremity lymphedema and venous stasis:
ID stopped IV cefepime and changed to Ceftazidime-Avibactam.
ID consult appreciated
Compression stockings
Continue to monitor clinical course
Paroxysmal A-fib:
On anticoagulation of Eliquis
Nadolol on hold for bradycardia. Last dose was 06/08. In addition her home dose was reduced from 40 to 20 mg at bedtime. Dose last night was held due to bradycardia.
Chronic left ulnar neuropathy -noted by neurology.
History of DVT/PE:
On anticoagulation
Essential hypertension:
Continue home antihypertensive
Hyperlipidemia:
Continue statin, atorvastatin 40 mg p.o. nightly
Restless leg syndrome:
On Requip
DVT prophylaxis:
On Eliquis
CODE STATUS:
Full code
Awaiting telemetry transfer.
Anticipated Discharge: 24 - 48 hours
Subjective/Interval History
-
Date of Service: June 10, 2024
Patient seen and examined, feeling better. Denies shortness of breath.
Objective Data
-
Labs:
Laboratory Results
06/10/24
03:52
WBC 11.5 H
Hgb 12.0
Hct 38.9
Plt Count 313
Sodium 139
Potassium 3.7
Chloride 91 L
Carbon Dioxide 41 H
BUN 26 H
Creatinine 0.6
Glucose 107 H
Calcium 8.7
Vital Signs:
Vital Signs
Temp Pulse Resp BP Pulse Ox
98.2 F 51 15 109/74 85
06/10/24 03:36 06/10/24 05:00 06/10/24 05:00 06/10/24 03:35 06/10/24 07:15
I&O
06/09/24 06/10/24 06/11/24
06:59 06:59 06:59
Intake Total 604 / 604 1382 / 1382 80 / 80
Output Total 2650 / 2650 1450 / 1450
Balance -2046 / -2045 - / - 80 / 80
Review of Systems
-
History Source: Patient
All other systems: Reviewed and negative
[2024-06-10] MEDS: NOVOLOG FLEXPEN-LOW RESISTANCE SC ×2 (08:24→12:00)
[2024-06-10 08:31] VITALS: BP 120/79
[2024-06-10] MEDS: PEPCID 20 MG PO (08:34)
[2024-06-10] MEDS: ELIQUIS 5 MG PO (08:34)
[2024-06-10] MEDS: LYRICA 150 MG PO (08:34)
[2024-06-10] MEDS: REQUIP 8 MG PO (08:35)
[2024-06-10] MEDS: DESENEX/MITRAZOL/ZEASORB 1 APPLIC TOPICAL (08:36)
[2024-06-10] MEDS: HYDROPHOR 1 APPLIC TOPICAL (08:37)
[2024-06-10] MEDS: BUMEX 0.5 MG PO (08:50)
--- NOTE | 2024-06-10 09:15 | PTCARENOTE ---
at bedside to see RLE. Wound care done. to update .
--- NOTE | 2024-06-10 09:36 | W.DS.TRANS ---
DC Summary - Art Director
-
Discharge Instructions:
Sleep Apnea Risk Low
Discharge Diagnosis/Procedures Right lower extremity skin and soft tissue
infection, congestive heart failure exacerbation
Diet Low Fat,Low Cholesterol,2 Gram Sodium
Activity As tolerated
Driving Restrictions As prior to admission
Bathing Restrictions None
Blood Work bmp next week with your primary care doctor
Instructions:
Stand-Alone Forms:
Changes to Home Medications: Yes
Discharge Medications:
DC Medications w/original date entered in [employer]
atorvastatin 40 mg tablet (Lipitor) 40 mg PO HS High cholesterol 06/22/20
ropinirole 2 mg tablet 8 mg PO TID Neurological Condition 07/25/22
apixaban 5 mg tablet (Eliquis) 5 mg PO BID Blood Clot Prevention/Tx 04/04/23
omeprazole 40 mg capsule,delayed release 40 mg PO DAILY Gastrointestinal Issue 04/04/23
pregabalin 150 mg capsule 150 mg PO BID Neurological Condition 04/04/23
albuterol sulfate 90 mcg/actuation aerosol inhaler 2 puff inhalation R Q4HPRN PRN sob wheezing 01/17/24
tramadol 50 mg tablet 50 mg PO Q8HPRN PRN moderate pain 03/18/24
miconazole nitrate 2 % topical powder (Miconazorb AF) 1 applic topical BID folds,reddness 06/05/24
bumetanide 0.5 mg tablet 0.5 mg PO DAILY #30 tabs 06/10/24
nadolol 20 mg tablet 20 mg PO HS #30 tabs 06/10/24
white petrolatum 42 % topical ointment (Hydrophor) 1 applic topical BID #100 grams 06/10/24
Home Medication Changes
Nadolol dose reduced to 20 mg nightly.
Pending Results: No
--- NOTE | 2024-06-10 10:47 | CM ---
Addendum entered by Faviola Brown 06/10/24 11:37:
Spoke with patient and they will provide transportation home in patient wheelchair van. CM will continue to follow for discharge home today.
Addendum entered by Faviola Brown 06/10/24 11:29:
IMM completed and signed form placed on chart.
Original Note:
Patient seen at bedside in ICU. Patient for discharge. Patient to be followed by [facility] and CM discussing with nursing Oxygen needs. Referral for home O2 coordinated with [facility] for referral to [employer]. Patient to review IMM form. CM will continue to
follow for discharge planning needs.
Plan; home with VN; KARANN.
--- NOTE | 2024-06-10 11:00 | PTCARENOTE ---
Spoke w/ RPT, case mgmnt, and . Pt noted to be desating to 76% on R/A at rest. 2L N/C applied...sats increased to 92%.
--- NOTE | 2024-06-10 11:01 | PTCARENOTE ---
Addendum entered by Treva Styles RN 06/10/24 11:48:
Pt on R/A and desating to 76% at rest. 02 2L applied and sats improved to 92-94%. Will continue to monitor.
Original Note:
Spoke w/ respiratory, case mgmnt, and about pt's oxygen sats. Pt desats to 76% on R/A while sleeping. Pt placed on 2L N/C...sats increased to 94%.
[2024-06-10 11:57] LABS: Glucose - Point of Care 128 mg/dl (70-99)
--- NOTE | 2024-06-10 12:10 | VNURNOTE ---
[facility] liaison met with patient and family member at bedside. Confirmed that patient is agreeable to resuming [facility]N services. New home 02 set up with [facility]. Mavis from [facility] confirmed Rx receipt and portable to be delivered bedside by 3pm.
--- NOTE | 2024-06-10 12:13 | W.PN.ID1 ---
Date of Service
Date of Service: June 10, 2024
Today's Communication
Discontinue antibiotics. See below�
Assessment / Plan
Acute mental status change
- Mental status improved. Not clear whether secondary to antibiotics or pulmonary edema given timeframe.
RLE erythema/Suspected cellulitis
Recurrent lymphedema with exacerbation
Right LE chronic venous stasis wounds
Hx CVA/TIA
HTN
DVT/PE
Afib
HFpEF
hypothyroidism
BMI 38
Recommendations
Mental status back to baseline.
Respiratory events possibly due to pulm edema.
RLE colonized with MDR-Pseudomonas.
Continue with local care to the wound.
Continue with compressive modalities, along with lower extremity elevation to facilitate lymphatic drainage. Patient again counseled that compression needs to remain on the foot 24 hours a day in order to keep the lymphedema minimal. It should be
noted that here in the hospital she has remained in bed, with compression in place, with marked improvement over just several days. She admits that at home she will often take off the compression, and she will spend significant time with her leg
dependent in the wheelchair. I counseled her that she needs to minimize that, but if nothing else she has to have compression in place if she is sitting in her wheelchair.
Discontinue further antibiotics. No objection to discharge from Infectious Diseases standpoint.
����������������������������������������������������������
Chief Complaint
-: Cellulitis and Other (Lymphedema)
Subjective / Review of Systems
Patient seen and examined. No specific complaints today.
Vital Signs / Physical Exam
Vital Signs
Vital Signs
Temp Pulse Resp BP Pulse Ox
97.8 F 73 8 120/79 94
06/10/24 11:39 06/10/24 10:00 06/10/24 10:00 06/10/24 08:50 06/10/24 10:00
Physical Exam
Constitutional: No Acute Distress, Comfortable and Non-toxic
Eyes: Sclera Anicteric
Cardiovascular: S1/S2; Negative S3/S4
Pulmonary: Non Labored
Extremities: Other (Right lower extremity edema markedly improved.)
Wound: Other (Wounds noted on right lower extremity, but no significant drainage. No malodor.)
Neurological: Awake and Alert
Psychological: Calm
Objective Data
Lab Data
Lab Results
06/10/24 03:52
06/10/24 03:52
PT Cancelled 06/08/24 06:00
INR Cancelled 06/08/24 06:00
APTT Cancelled 06/08/24 06:00
Estimated Creat Clear 82 ml/min 06/10/24 03:52
Most recent labs reviewed.
Micro Results:
06/08/24 03:09 Influenza Types A & B (DIANE) - Final
Nasal Swab Negative for Influenza A & B, NAAT
Negative results must be combined with clinical observations
and patient history.
Nucleic Acid Amplification test (NAAT)performed on the
[employer] platform.
06/07/24 CXR: Mild acute interstitial cardiogenic pulmonary edema.
Care Review
Plan reviewed with: Physician (Hospitalist)
[2024-06-10 14:15] VITALS: BP 128/73
--- NOTE | 2024-06-10 15:20 | PTCARENOTE ---
Discharge instructions provided. All questions answered. Reviewed importance of taking prescribed meds, making f/u appts, and calling O2 company prior to leaving hospital today. IV sites and night monitor removed. Pt's and home health
aide at bedside. Pt will travel home in wheelchair.
== END 2024-06-10 15:45 | disposition home health service (06) | DRG 602 ==
LOC: ICU 15:51
PROVIDERS: Hospitalist; Nurse Practitioner Family; ADMITTING PHYSICIAN Internal Medicine; ATTENDING PHYSICIAN Hospitalist; CONSULT PHYSICIAN Internal Medicine; CONSULT PHYSICIAN Internal Medicine Infectious Disease; CONSULT PHYSICIAN Psychiatry & Neurology Neurology; EMERGENCY PHYSICIAN Emergency Medicine; FAMILY PHYSICIAN Family Medicine
DX: L03.115 Cellulitis of right lower limb (principal); G93.41 Metabolic encephalopathy; I50.33 Acute on chronic diastolic (congestive) heart failure; I87.8 Other specified disorders of veins; I11.0 Hypertensive heart disease with heart failure; E78.00 Pure hypercholesterolemia, unspecified; I48.0 Paroxysmal atrial fibrillation; K21.9 Gastro-esophageal reflux disease without esophagitis; G25.81 Restless legs syndrome; M81.0 Age-related osteoporosis without current pathological fracture; E66.9 Obesity, unspecified; E03.9 Hypothyroidism, unspecified; Z86.14 Personal history of Methicillin resistant Staphylococcus aureus infection; Z89.612 Acquired absence of left leg above knee; Z86.718 Personal history of other venous thrombosis and embolism; Z86.711 Personal history of pulmonary embolism; Z79.01 Long term (current) use of anticoagulants; Z79.899 Other long term (current) drug therapy; Z86.73 Personal history of transient ischemic attack (TIA), and cerebral infarction without residual deficits; Z68.38 Body mass index [BMI] 38.0-38.9, adult; I89.0 Lymphedema, not elsewhere classified
CPT/HCPCS: 36600; 70450; 71045; 80048; 82805; 82962; 83036; 83735; 85025; 85027; 87502; 87811; 92610; 93005; 93306; 94640; 94660; 97162; 97164; 97167; 97530; 97535; 99285; J0714

== ENCOUNTER → 2024-06-26 14:21 | Outpatient (REF) | payer MEDICARE, BC, SELFPAY | LOC: WOUND 14:21 | PROVIDERS: ATTENDING PHYSICIAN Surgery; FAMILY PHYSICIAN Family Medicine | DX: I87.311 Chronic venous hypertension (idiopathic) with ulcer of right lower extremity (principal); L97.212 Non-pressure chronic ulcer of right calf with fat layer exposed; S91.221A Laceration with foreign body of right great toe with damage to nail, initial encounter; I87.2 Venous insufficiency (chronic) (peripheral); I73.9 Peripheral vascular disease, unspecified; I48.0 Paroxysmal atrial fibrillation; Z89.612 Acquired absence of left leg above knee; X58.XXXA Exposure to other specified factors, initial encounter | CPT/HCPCS: 99213 ==

== ENCOUNTER → 2024-07-10 14:15 | Outpatient (REF) | payer MEDICARE, BC, SELFPAY | LOC: WOUND 14:15 | PROVIDERS: ATTENDING PHYSICIAN Surgery; FAMILY PHYSICIAN Family Medicine | DX: I87.311 Chronic venous hypertension (idiopathic) with ulcer of right lower extremity (principal); L97.212 Non-pressure chronic ulcer of right calf with fat layer exposed; S91.221A Laceration with foreign body of right great toe with damage to nail, initial encounter; I87.2 Venous insufficiency (chronic) (peripheral); I73.9 Peripheral vascular disease, unspecified; I48.0 Paroxysmal atrial fibrillation; Z89.612 Acquired absence of left leg above knee; X58.XXXA Exposure to other specified factors, initial encounter | CPT/HCPCS: 99213 ==

== ENCOUNTER → 2024-07-22 12:35 | Outpatient (REF) | payer MEDICARE, BC, SELFPAY | LOC: WOUND 12:35 | PROVIDERS: ATTENDING PHYSICIAN Surgery; FAMILY PHYSICIAN Family Medicine | DX: I87.311 Chronic venous hypertension (idiopathic) with ulcer of right lower extremity (principal); L97.212 Non-pressure chronic ulcer of right calf with fat layer exposed; S91.221A Laceration with foreign body of right great toe with damage to nail, initial encounter; I87.2 Venous insufficiency (chronic) (peripheral); I73.9 Peripheral vascular disease, unspecified; I48.0 Paroxysmal atrial fibrillation; Z89.612 Acquired absence of left leg above knee; X58.XXXA Exposure to other specified factors, initial encounter | CPT/HCPCS: 99213 ==

== ENCOUNTER → 2024-08-12 13:49 | Outpatient (REF) | payer MEDICARE, BC, SELFPAY ==
[2024-08-12 16:11] LABS: Blood Urea Nitrogen 21 mg/dl (7-17); Calcium 8.9 mg/dl (8.4-10.2); Carbon Dioxide 28 mmol/L (22-30); Chloride 99 mmol/L (98-107); Glucose 97 mg/dl (70-99); Potassium 5.7 mmol/L (3.5-5.1); Sodium 132 mmol/L (135-145); eGFR > 60.00
== END ==
LOC: REG 13:49
PROVIDERS: ATTENDING PHYSICIAN Internal Medicine Cardiovascular Disease
DX: I48.0 Paroxysmal atrial fibrillation (principal)
CPT/HCPCS: 36415; 80048

== ENCOUNTER → 2024-08-14 11:02 | Outpatient (REF) | payer MEDICARE, BC, SELFPAY | LOC: WOUND 11:02 | PROVIDERS: ATTENDING PHYSICIAN Surgery; FAMILY PHYSICIAN Family Medicine | DX: I87.311 Chronic venous hypertension (idiopathic) with ulcer of right lower extremity (principal); L97.212 Non-pressure chronic ulcer of right calf with fat layer exposed; S91.221A Laceration with foreign body of right great toe with damage to nail, initial encounter; I87.2 Venous insufficiency (chronic) (peripheral); I73.9 Peripheral vascular disease, unspecified; I48.0 Paroxysmal atrial fibrillation; Z89.612 Acquired absence of left leg above knee | CPT/HCPCS: 99213 ==

== ENCOUNTER → 2024-08-22 13:59 | Outpatient (REF) | payer MEDICARE, BC, SELFPAY | LOC: WOUND 13:59 | PROVIDERS: ATTENDING PHYSICIAN Surgery; FAMILY PHYSICIAN Family Medicine | DX: I87.311 Chronic venous hypertension (idiopathic) with ulcer of right lower extremity (principal); L97.212 Non-pressure chronic ulcer of right calf with fat layer exposed; S91.221A Laceration with foreign body of right great toe with damage to nail, initial encounter; I87.2 Venous insufficiency (chronic) (peripheral); I73.9 Peripheral vascular disease, unspecified; Z89.612 Acquired absence of left leg above knee; I48.0 Paroxysmal atrial fibrillation; X58.XXXA Exposure to other specified factors, initial encounter | CPT/HCPCS: 99213 ==

== ENCOUNTER → 2024-09-05 13:36 | Outpatient (REF) | payer MEDICARE, BC, SELFPAY | LOC: WOUND 13:36 | PROVIDERS: ATTENDING PHYSICIAN Surgery; FAMILY PHYSICIAN Family Medicine | DX: I87.311 Chronic venous hypertension (idiopathic) with ulcer of right lower extremity (principal); L97.212 Non-pressure chronic ulcer of right calf with fat layer exposed; L88 Pyoderma gangrenosum; I87.2 Venous insufficiency (chronic) (peripheral); I73.9 Peripheral vascular disease, unspecified; I48.0 Paroxysmal atrial fibrillation; Z89.612 Acquired absence of left leg above knee | CPT/HCPCS: 99214 ==

== ENCOUNTER 2024-09-12 10:21 | Inpatient (IN) | payer MEDICARE, BC, SELFPAY ==
[2024-09-12] VITALS (40 sets, daily range): BP systolic 70–127; BP diastolic 39–98; BMI 38.3; BMI 38.6
--- NOTE | 2024-09-12 04:50 | ED.GENMED ---
History of Present Illness
General
Chief Complaint: Heart Rate Problem
Time Seen by Provider: 09/12/24 04:25
History of Present Illness
History of Present Illness:
84-year-old female with history of PE on Eliquis, history of A-fib, hypertension, chronic venous insufficiency with right lower extremity wound and left AKA, CHF presenting to the emergency department with back pain and left-sided shoulder pain.
Patient reports symptoms started several hours prior to arrival. She called her doctor who advised to come to the hospital. She notes that her symptoms feel very similarly to the time when she had a PE. She notes compliance with her Eliquis.
Denies any shortness of breath. Symptoms have improved since arrival to the hospital. Denies any present chest pain or palpitations. Denies fever or recent illness. Does note chronic right lower extremity wound, for which she follows with
infectious disease. Patient arrives by medics, [place] with RVR en route
Past History
Past History
ED Past Medical History: Arrthythmia, HTN, Hypercholesterolemia, Other (DVT) and Other (DVT, cervical disc disease, osteoarthritis, MRSA, DVT/PE); Negative IDDM
ED Past Surgical History: Bowel resection, Gynecological, Orthopedic (Cervical-lumbar fusion, right shoulder replacement 2014, left knee replacement) and Other (Partial thyroidectomy. Multiple dental procedures)
Social History
Tobacco: Non-smoker
Alcohol: None
Drug: None
Personal:
Living: with family
Employment: Retired
Family History
Family History: Hypertension
Phy Exam
Physical Exam
Physical Exam:
General: Well-appearing, no clinical signs of dehydration, nontoxic and in no acute distress
HEENT: protecting airway
Neck: appears supple
CV: Tachycardic, irregular irregular rhythm, no evidence of cyanosis
Resp: No accessory muscle use, no increased work of breathing, lungs clear to auscultation bilaterally
Abd: Soft and non-distended, no tenderness to palpation
Extremities: Left AKA. On examination of right lower extremity, chronic appearing wound encompassing the daniels and ankle with mild malodor and generalized tenderness on palpation with surrounding erythema and weeping
Neuro: alert, no focal neurologic deficit
: deferred
Rectal: deferred
Psych: Normal affect
Skin: Intact
Course
Orders/Labs/Results
Orders:
Orders
09/12/24 04:23
Electrocardiogram (*1) Urgent
Reason for Study: Tachycardia
EKG- Treatment ONCE
09/12/24 04:48
CT Chest PE Study Urgent
Comment:
Reason For Exam: SOB, Afib, hx PE
Complete Blood Count/With Diff Urgent
Comprehensive Metabolic Panel Urgent
NT-proBNP Urgent
Troponin I Urgent
09/12/24 05:00
Diltiazem 125 mg/125 ml Nss [Cardizem] 125 mg in 125 ml IV PER PROTOCOL
Currently infusing. Continue current dose and titrate:: Yes
Titrate to keep:: Heart rate 80-100 bpm
Titrate by mg/hr:: 5 mg/hr
Frequency of titrations (minutes):: 15
Maximum dose in mg/hr:: 15
09/12/24 05:06
Diltiazem HCl [Cardizem] 25 mg .ROUTE .STK-MED ONE
09/12/24 05:07
Diltiazem HCl [Cardizem] 15 mg IV NOW STA
09/12/24 05:22
0.9% Sodium Chloride 500 ml [Nss] 500 ml IV BOLUS
09/12/24 05:58
Electrocardiogram (*1) Urgent
Reason for Study: Palpitations
EKG- Treatment ONCE
09/12/24 06:30
*Vancomycin 2,000 mg Loading Dose (consider for >/= 70 kg) Vancomycin [Vancocin] 2,000 mg 0.9% Sodium Chloride 500 ml [Nss] 500 ml IV NOW
Abnormal Lab Results
09/12/24
04:48
WBC 14.9 H 10^3/uL
(4.8-10.8)
Hgb 11.7 L g/dL
(12.0-16.0)
MCV 80.5 L fL
(81.0-99.0)
MCH 24.5 L pg
(27.0-31.0)
MCHC 30.4 L g/dL
(33.0-37.0)
RDW 19.4 H %
(11.5-14.5)
Abs Immat Gran (auto) 0.4 H 10^3/uL
(0-0.05)
Absolute Neuts (auto) 11.4 H 10^3/uL
(1.4-6.5)
Absolute Monos (auto) 0.9 H 10^3/uL
(0.1-0.6)
Immature Gran % 2.4 H %
(0-0.5)
Neutrophils % 76.7 H %
(42.2-75.2)
Lymphocytes % 13.8 L %
(20.5-51.1)
Carbon Dioxide 31 H mmol/L
(22-30)
BUN 26 H mg/dl
(7-17)
Glucose 174 H mg/dl
(70-99)
Troponin I 0.053 H* ng/ml
Total Protein 5.8 L g/dl
(6.3-8.2)
Albumin 3.1 L g/dl
(3.5-5.0)
09/12/24 04:48
09/12/24 04:48
Vital Signs
Initial and Last Documented VS:
Initial Vital Signs
Temp Pulse Resp BP Pulse Ox
97.4 F 136 20 87/59 97
09/12/24 04:25 09/12/24 04:25 09/12/24 04:25 09/12/24 04:25 09/12/24 04:25
Last Documented Vital Signs
Temp Pulse Resp BP Pulse Ox
97.4 F 139 21 113/75 96
09/12/24 04:25 09/12/24 05:08 09/12/24 05:00 09/12/24 05:08 09/12/24 05:00
MDM/Problems Addressed
MDM/Problems Addressed:
84-year-old female with history of PE on Eliquis, history of A-fib, hypertension, chronic venous insufficiency with right lower extremity wound and left AKA, CHF presenting for back pain and left shoulder pain. Vital signs and tachycardia, as well
as asymmetric blood pressures with hypotension in the right arm and normotension in the left arm.
On exam, patient is resting comfortably, no acute distress and notes significant improvement in her symptoms. However patient is still markedly tachycardic, consistent with A-fib with RVR by EKG and by athletic monitor. Patient initially noted to
be hypotensive with pressures in the right arm, with discussion for unstable A-fib with need for urgent cardioversion. However when checking pressure left arm, normotensive. Patient maintaining a normal mental status. Will hold at this time.
Will start on diltiazem drip and continue to monitor blood pressure. However given asymmetric pressures and report preceding back pain and shoulder pain, cannot safely rule out PE versus aortic pathology. For this reason we will obtain CT imaging
of her chest.
06:30 -heart rate has improved on diltiazem. CT chest is negative for PE or dissection. Troponin is slightly elevated, possible ischemic demand from the A-fib, however patient did present with back pain and shoulder pain, so ACS is still a
consideration. Continue troponin trending and cardiac monitoring. Regarding her right lower extremity, labs do show elevated white blood cell count. Concern for cellulitis. Starting antibiotics. Plan for admission.
*Pulse Oximetry
SaO2: 98
Oxygen Mode of Delivery: Room air
Patient hypoxic: no
*EKG
Interpreted by ED Provider?: Yes
EKG Intrepretation Date: 09/12/24
EKG Intrepretation Time: 04:56
Interpretation: abnormal
Comparison EKG: changes noted
Heart Rate: 136
Rate: tachycardiac
Rhythm: a-fib
[place]: normal axis
QRS Pattern: normal QRS
Ischemia: non-specific ST changes
*Critical Care Note
Total Time (30-74mins, 75-104mins- exclusive of procedures): 42
comment:
The high probability of a clinically significant, sudden or life threatening deterioration of the cardiovascular, A-fib with RVR, system(s) required my full and direct attention, intervention and personal management. The aggregate critical care time
was 42 minutes. This time is in addition to time spent performing reported procedures but includes the following:
[x] Data Review and interpretation
[x] Patient assessment and monitoring of vital signs
[x] Documentation
[x] Medication orders and management
ED Attending Note
-
Portions of this chart may have been created with voice recognition software.� Occasional wrong word or��sound alike� substitutions may have occurred due to the inherent limitations of voice recognition software.
Discharge Plan
Departure
Prescriptions:
No Action
atorvastatin [Lipitor] 40 MG tablet
40 mg PO HS
ropinirole 2 MG tablet
8 mg PO TID
Eliquis 5 MG tablet
5 mg PO BID
pregabalin 150 mg capsule
150 mg PO BID
omeprazole 40 mg capsule,delayed release(DR/EC)
40 mg PO DAILY
albuterol sulfate 90 mcg/actuation HFA aerosol inhaler
2 puff inhalation R Q4HPRN PRN (Reason: sob wheezing)
tramadol 50 mg tablet
50 mg PO Q8HPRN PRN (Reason: moderate pain)
miconazole nitrate [Miconazorb AF] 2 % powder
1 applic topical BID
nadolol 20 mg Tablet
20 mg PO HS Qty: 30 0RF
bumetanide 0.5 mg Tablet
0.5 mg PO DAILY Qty: 30 0RF
white petrolatum [Hydrophor] 42 % Ointment
1 applic topical BID Qty: 100 0RF
Rx Instructions:
apply to right leg
Referrals:
Stef Flores MD [Family Provider, Family Practice]
Interventions
Interventions:
*Risk Screen - Suicide Last Done: 09/12/24 04:31
*General Assessment Last Done: 09/12/24 04:31
*Neglect/Abuse Screening Last Done: 09/12/24 04:31
*ED- Fall Risk Assessment Last Done: 09/12/24 04:31
*ED COVID-19 Vaccine History Last Done: 09/12/24 04:31
Discharge Date and Time
Print Language: GUINEAN
[2024-09-12] MEDS: CARDIZEM 125 IV ×2 (04:54→21:21)
[2024-09-12 04:56] LABS: Hematocrit 38.5 % (37.0-47.0); Hemoglobin 11.7 g/dL (12.0-16.0); Mean Corp Hgb Conc. 30.4 g/dL (33.0-37.0); Mean Corpuscular Volume 80.5 fL (81.0-99.0); Nucleated Red Blood Cells % 0 %; Platelet Count 328 10^3/uL (130-400); Red Cell Dist. Width 19.4 % (11.5-14.5)
[2024-09-12] MEDS: CARDIZEM 15 MG IV (05:08)
[2024-09-12 05:21] LABS: ALT (SGPT) 18 U/L (0-35); AST (SGOT) 18 U/L (14-36); Albumin 3.1 g/dl (3.5-5.0); Alkaline Phosphatase 78 U/L (38-126); Blood Urea Nitrogen 26 mg/dl (7-17); Calcium 8.8 mg/dl (8.4-10.2); Carbon Dioxide 31 mmol/L (22-30); Chloride 104 mmol/L (98-107); Estimated Creatinine Clearance 68 ml/min; Glucose 174 mg/dl (70-99); Potassium 4.8 mmol/L (3.5-5.1); Sodium 137 mmol/L (135-145); Total Protein 5.8 g/dl (6.3-8.2); eGFR > 60.00
[2024-09-12 05:36] LABS: Troponin I 0.053 ng/ml
[2024-09-12] MEDS: NSS 500 IV (06:17)
[2024-09-12] MEDS: ULTRAM 50 MG PO ×3 (06:40→16:41)
[2024-09-12] MEDS: VANCOCIN 540 MG IV (06:55)
--- NOTE | 2024-09-12 08:27 | HPS.HSE ---
Addendum entered and electronically signed by Rodolfo Lawrence MD 09/12/24 18:05:
I have personally supervised the history, physical exam, medical decision-making, and care plan for this patient in conjunction with the resident. I have reviewed and discussed the resident's documentation and findings. I confirm that this note
accurately reflects my supervision and input in the care of this patient.
History of Presenting Illness
84-year-old female with past medical history of PE/DVT on Eliquis (has been compliant with her Eliquis), paroxysmal A-fib, hypertension, chronic venous insufficiency with right lower extremity wound (follows wound care and Dr. Becker outpatient) and
left above-knee amputation and HFpEF, recent admission here in May 2024, required ICU level of care and BiPAP for heart failure with pulmonary edema who presented to the [facility] ED complaining of upper back pain radiating to her left inferior
scapula. The patient reported pain started about 6 hours prior to arrival to the ED. She rated the pain as an 8 out of 10 when it initially started and reported that it felt similar to her previous 'pulmonary embolism pain'. She was worried
about this initial feeling and stated she began to have shortness of breath and anxiety about the pain. She called her PCP who advised her to come to the hospital. At the bedside, she specifically and repeatedly denied ongoing chest pain, and
denied any episode of chest pain prior to arrival. She denied fever, she denies chills. She reported palpitations, especially at the moment when the pain started. Patient also reported intense acute on chronic pain in her right leg secondary to
her wound. She follows Dr. Becker outpatient for treatment of her cellulitis.
Prior to presentation to the ED, the patient was noted to be in A-fib with RVR en route by medics.
Upon presentation to the ED, vitals with blood pressure 87/59, pulse 136, temperature 97.4, respiratory 20, O2 sat 97% on room air. Labs showed WBC 14.9, hemoglobin 11.7, hematocrit 38.5, platelet count 328. troponin I on presentation 0.053, proBNP
1180. She was evaluated with a CTA of chest with IV contrast- No evidence of pulmonary embolism or thoracic aortic dissection.
Physical Exam
General: Well Developed and No Apparent Distress
HEENT: NormoCephalic and Moist mucous membranes
Respiratory: Clear to Auscultation Bilaterally
Cardiac: S1/S2, Irregularly Irregular Rhythm and Tachycardia
GI: Soft, Non Tender, Non Distended and Normal Bowel Sounds
Musculoskeletal: Other (Left [id number] amputation. Right lower extremity with chronic appearing wound, tender to palpation, erythema and drainage noted.)
Neuro: Awake, Alert, Oriented and AO x 3
Psych: Calm
Assessment/Plan
#Sepsis secondary to right lower extremity cellulitis
#Hx of Chronic right lower extremity venous stasis wounds, follows ID Dr. Becker outpatient
# Leukocytosis
# RLE lymphedema - pt not consistently compliant with compression.
# Abx intolerances: cefepime (mental status change); cipro (dizziness)
- Leg wounds colonized with CR-Pseudomonas
-right lower extremity colonized with multidrug-resistant Pseudomonas (Ceftazidime, Zosyn, Aztreonam)
-IVF boluses given cautiously in the setting of heart failure
-Chronic open right lower extremity wound with prior infection
-Wound culture
-Continue Avycaz
-Wound consult, wound care
-Compression stockings, elevate leg to improve lymphatic drainage
-ID consult for abx guidance
#Paroxysmal atrial fibrillation with rapid ventricular response likely secondary to sepsis and cellulitis
-EKG on presentation, A-fib with RVR
-Rate control with IV Cardizem drip -- goal is to wean it and transition to Metoprolol
-Hold nadolol in the setting of soft BPs
-Cardiology consult to evaluate
-Continue anticoagulation with Eliquis
#Type II myocardial infarction secondary to demand ischemia
-Troponin mildly elevated at 0.053
-Likely secondary to supply/demand mismatch from A-fib
-No Ischemic changes on EKG
-Trend trop
-Cardiology consult
#Moderate Coronary Artery Calcifications
#Back pain likely multifactorial- mechanical vs musculoskeletal
-Denies respiratory symptoms
-CTA no PE or dissection, mild bibasilar atelectasis, moderate coronary artery calcification
-Pain control with Tylenol, tramadol
-PT/OT
#Chronic HFpEF
-No signs of acute decompensation, although at the last admission, required ICU level of care and BiPAP
-Echocardiogram 06/01/2024 with LVEF 60-65%, normal regional wall motion, moderate mitral regurg, mild
-proBNP 1180
-Hold bumetanide today, as already initiated on IV fluid. Hold further IV fluids
-Daily weights, I's and O's
-Monitor creatinine, BMP
-Cardiology consult
#History of DVT/PE
-Continue anticoagulation
#Essential hypertension
-Hold antihypertensives in the setting of soft BPs
#Hyperlipidemia
-Continue atorvastatin
#Chronic left ulnar neuropathy
#Spinal Stenosis
-Continue Tramadol
#Restless leg syndrome
-Continue ropinirole, pregabalin
#Anemia
-etiology likely Anemia of chronic disease
-monitor Hgb
-Transfuse for Hgb <7
#History of obstructive sleep apnea
-Not on home CPAP, did not tolerate in the past
#History of asthma
-Continue albuterol
-Not in acute exacerbation
#BMI-38 obesity
Affects all aspects of care
DVT prophylaxis Eliquis
CODE STATUS Full Code
Original Note:
Family Physician
-
Family Physician: Stef Flores
Chief Complaint
-
Right leg pain, back pain
History of Present Illness
This is an 84-year-old female with past medical history of PE/DVT on Eliquis, paroxysmal A-fib, hypertension, chronic venous insufficiency with right lower extremity wound and left above-knee amputation, HFpEF, who presents to the ED complaining of
upper back pain radiating to her left scapula. The patient reports pain started 6 hours prior to arrival to the ED. She described the pain as a sharp, constant at the center of her back that radiates to the left side of the back. She reports pain
is radiating specifically beneath the left scapula. She rates the pain as an 8 out of 10 when initially started and reports that it felt similar to her 'pulmonary embolism pain'. She was worried about this initial feeling and states she began to
have shortness of breath and anxiety about the pain. She called her PCP who advised her to come to the hospital.� She states she has been compliant with Eliquis.� At the bedside, she specifically and repeatedly denies ongoing chest pain, and denies
any episode of chest pain prior to arrival. She denies fever, she denies chills. She reports palpitation, especially at the moment when the pain started.
In addition, patient reports intense pain in her right leg secondary to her wound. She states this is chronic for her but pain has been worsening. She reports pain was a 9 out of 10 localized to the right leg and not radiating anywhere. She
follows Dr. Becker outpatient for treatment of her cellulitis. On review of her history, she has a chronic right lower extremity wound for which she follows infectious disease(Dr Becker) and wound care outpatient.�
Pertinent to her history, she was recently admitted at this hospital in May 2024, required ICU level of care and BiPAP for heart failure with pulmonary edema
Prior to presentation to the ED, the patient was noted to be in A-fib with RVR en route by medics.
Upon presentation to the ED, vitals with blood pressure 87/59, pulse 136, temperature 97.4, respiratory 20, O2 sat 97% on room air.� Laboratory showed WBC 14.9, hemoglobin 11.7, hematocrit 38.5, platelet count 328. troponin I on presentation 0.053,
proBNP 1180.� She was evaluated with a CTA of chest with IV contrast- No evidence of pulmonary embolism or thoracic aortic dissection. She was evaluated with an EKG on presentation and was noted to be in A-fib with RVR.
Medical History
Past Medical History
Past Medical History: Reports Other
Additional Past Medical History:
CVA
PE/DVT
atrial fibrillation on Eliquis
chronic HFpEF
hypertension
hyperlipidemia
GERD
restless leg syndrome
spinal stenosis
neuropathy
Chronic venous insufficiency with right lower extremity wound
Past Surgical History: Reports Other
Additional Past Surgical History:
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
partial thyroidectomy
Cervical-lumbar fusion
right shoulder replacement 2014
left knee replacement
Right knee replacement
Social History
Tobacco: Non-smoker
Alcohol: None
Drug: None
Personal:
Living: With Family
Family History
Family History: Not pertinent
Allergies / Home Medications
Allergies reflects when Allergies were last updated in [facility].
Home Medications with original date entered in [facility]
Allergy/Medication List:
Allergies
Allergy/AdvReac Type Severity Reaction Status Date / Time
adhesive (Adhesive) Allergy Itching/RED Verified 09/12/24 04:25
NESS
Aminoglycosides Allergy Pharmacy Verified 09/12/24 04:25
to Review
azithromycin (Azithromycin) Allergy patient Verified 09/12/24 04:25
denies
celecoxib (From Celebrex) Allergy started to Verified 09/12/24 04:25
break out
with sores
doxycycline Allergy Unknown Verified 09/12/24 04:25
erythromycin base Allergy CHEST PAIN Verified 09/12/24 04:25
furosemide (From Lasix) Allergy 'just Verified 09/12/24 04:25
doesn't
feel good'
- takes
bumetanide
at home
09/04/23
kanamycin Allergy Unknown Verified 09/12/24 04:25
latex Allergy Rash Verified 09/12/24 04:25
ciprofloxacin (From Cipro) AdvReac dizziness Verified 09/12/24 04:25
Home Medications
atorvastatin 40 mg tablet (Lipitor) 40 mg PO HS High cholesterol 06/22/20
ropinirole 2 mg tablet 8 mg PO BID Neurological Condition 07/25/22
apixaban 5 mg tablet (Eliquis) 5 mg PO BID Blood Clot Prevention/Tx 04/04/23
omeprazole 40 mg capsule,delayed release 40 mg PO DAILY Gastrointestinal Issue 04/04/23
pregabalin 150 mg capsule 150 mg PO BID Neurological Condition 04/04/23
albuterol sulfate 90 mcg/actuation aerosol inhaler 2 puff inhalation R Q4HPRN PRN sob wheezing 01/17/24
tramadol 50 mg tablet 50 mg PO Q8HPRN PRN moderate pain 03/18/24
miconazole nitrate 2 % topical powder (Miconazorb AF) 1 applic topical BIDPRN PRN b/l breasts and abd folds 06/05/24
nadolol 20 mg tablet 20 mg PO HS #30 tabs 06/10/24
bumetanide 0.5 mg tablet 0.5 mg PO DAILYPRN PRN fluid 09/12/24
Review of Systems
-
History Source: Patient
A 12 point ROS was completed and negative except as noted: Yes
Constitutional: Reports Other (All review of systems reviewed and negative except those mentioned in HPI)
Physical Exam
Vital Signs
Vital Signs
Temp Pulse Resp BP Pulse Ox
97.4 F 122 19 100/59 94
09/12/24 04:25 09/12/24 08:00 09/12/24 08:00 09/12/24 08:00 09/12/24 08:00
Physical Exam
General: Well Developed and No Apparent Distress
HEENT: NormoCephalic and Moist mucous membranes
Respiratory: Clear and Non Labored Respirations; No Wheezes or Crackles
Cardiac: S1/S2, Irregular Rhythm and Tachycardia
GI: Soft, Non Tender, Non Distended and Normal Bowel Sounds
Musculoskeletal: Other (Left [id number] amputation. Right lower extremity with chronic appearing wound, tender to palpation, erythema and drainage noted.)
Neuro: Awake, Alert, Oriented and AO x 3
Psych: Calm
Laboratory Results
-
09/12/24 04:48
09/12/24 04:48
Laboratory Results
Total Bilirubin 0.4 mg/dl (0.2-1.3) 09/12/24 04:48
AST 18 U/L (14-36) 09/12/24 04:48
ALT 18 U/L (0-35) 09/12/24 04:48
Alkaline Phosphatase 78 U/L (38-126) 09/12/24 04:48
Troponin I 0.053 ng/ml H* 09/12/24 04:48
Impression/Plan
-
Assessment/plan
#Sepsis secondary to right lower extremity cellulitis
#Hx of Chronic right lower extremity venous stasis wounds, follows ID outpatient
-right lower extremity colonized with multidrug-resistant Pseudomonas (Ceftazidime, Zosyn, Aztreonam)
-SIRS criteria met on presentation heart rate 136, WBC of 14.9
-Bolus IVF administered in ED
-Chronic open right lower extremity wound with prior infection
-Wound culture
-Start empiric antibiotics vancomycin plus cefepime
-Wound consult, wound care
-Compression stockings, elevate leg to improve lymphatic drainage
-ID consult for abx guidance
#Paroxysmal atrial fibrillation with rapid ventricular response
-EKG on presentation, A-fib with RVR
-Rate control with IV Cardizem if blood pressure tolerates.
-Hold nadolol in the setting of soft BPs
-Cardiology consult to evaluate
-Continue anticoagulation with Eliquis
#Type II myocardial infarction secondary to demand ischemia
-Troponin mildly elevated at 0.053
-Likely secondary to supply/demand mismatch from A-fib
-No Ischemic changes on EKG
-Trend trop
-Cardiology consult
#Back pain likely multifactorial- mechanical vs musculoskeletal
-Denies respiratory symptoms
-CTA no PE or dissection, mild bibasilar atelectasis, moderate coronary artery calcification
-Pain control with Tylenol, tramadol
-PT/OT
#Chronic HFpEF
-No signs of acute decompensation, although at the last admission, required ICU level of care and BiPAP
-Echocardiogram 06/01/2024 with LVEF 60-65%, normal regional wall motion, moderate mitral regurg, mild
-proBNP 1180
-Hold bumetanide today, as already initiated on IV fluid. Hold further IV fluids
-Daily weights, I's and O's
-Monitor creatinine, BMP
-Cardiology consult
#History of DVT/PE
-Continue anticoagulation
#Essential hypertension
-Hold antihypertensives in the setting of soft BPs
#Hyperlipidemia
-Continue atorvastatin
#Chronic left ulnar neuropathy
#Spinal Stenosis
-Continue Tramadol
#Restless leg syndrome
-Continue ropinirole, pregabalin
#Anemia
-etiology likely Anemia of chronic disease
-monitor Hgb
-Transfuse for Hgb <7
#History of obstructive sleep apnea
-Not on home CPAP, did not tolerate in the past
#History of asthma
-Continue albuterol
-Not in acute exacerbation
#BMI-38 obesity
Affects all aspects of care
DVT prophylaxis Eliquis
CODE STATUS Full Code
[2024-09-12] MEDS: TYLENOL 1000 MG PO (09:30)
--- NOTE | 2024-09-12 11:08 | CON.CAR ---
Addendum entered and electronically signed by Kali Leroy DO 09/12/24 12:09:
I saw and examined the patient.
The Milk Collector's note was reviewed and I agree with the note.
Comment:
Patient presenting with right lower extremity cellulitis and sepsis. Cardiology consulted for atrial fibrillation with rapid ventricular response which is a known diagnosis for her. Patient placed on Cardizem IV gtt with controlled heart rate
70-100 bpm. Patient undergoing treatment for cellulitis per primary service.
GENERAL: no acute distress
EYE: sclera anicteric
NECK: Supple, no JVD, no carotid bruit appreciated
ENT: normal nose, moist mucosal membranes
CARDIAC: Irregularly irregular, +S1/S2, no murmur, rubs, or gallops
CHEST/PULMONARY: Normal effort, clear breath sounds
ABDOMEN: Soft, without focal tenderness or distention
NEUROLOGICAL: Alert and oriented x3
SKIN: Warm and dry, no rash; left AKA; RLE wrapped foot to knee, 1+ edema at knee
PSYCH: Normal and appropriate interaction.
Telemetry AF
EKG 118 bpm, no significant ST-T abnormality
A/P as below
AF RVR likely secondary to patient's underlying acute medical condition with lower extremity cellulitis and sepsis
Wean Cardizem gtt. as patient able to tolerate p.o. medications and start metoprolol succinate with goal up titration for heart rate control
Continue anticoagulation with oral Eliquis for stroke risk reduction --[id number]: 8 (heart failure, hypertension, age, stroke, vascular disease, gender).
Monitor on telemetry, monitor intake and output, daily weights, renal function, electrolytes
Discussed with nursing, hospitalist
Original Note:
Consultation
Consultation Request
Date/Time Consultation Performed: 09/12/24
Requesting Provider: Dr. Lawrence
Performing Provider: Grace Diaz PA-C for Dr. Leroy
Reason for Consultation: afib
Medical History
-
Chief Complaint: back and leg pain
History of Present Illness:
Patient is an 81-year-old female with past medical history of paroxysmal atrial fibrillation on chronic Eliquis, chronic diastolic congestive heart failure, history of stroke, hypertension, hyperlipidemia, severe RLS, history of left AKA with RLE
wound who presents to [facility] due to back pain of approximately 6 hours duration, sharp in nature and constant as well as right lower extremity pain. Noted to have evidence of acute cellulitis. She has previously had issues with cellulitis, however
refused Levaquin in past for treatment. Noted to be in atrial fibrillation, presently with controlled ventricular response on IV Cardizem at 10. She has history of paroxysmal atrial fibrillation, and is asymptomatic. She has been compliant with
Eliquis. Cardiology consulted for evaluation. She gets around primarily in a wheelchair.
PMH:
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
paroxysmal atrial fibrillation
Chronic OAC with Eliquis
Chronic HFpEF
History of CVA 2020
HTN
HLD
severe RLS
History of DVT
Past Medical History
Past Medical History: Other (in HPI)
Social History
Tobacco: Non-Smoker
Alcohol: Occasional
Personal:
Living: With Family
Employment: Retired
Family History
Family History: Reviewed & Not Pertinent
Allergies / Home Medications
Allergy/AdvReac Type Severity Reaction Status Date / Time
adhesive (Adhesive) Allergy Itching/RED Verified 09/12/24 04:25
NESS
Aminoglycosides Allergy Pharmacy Verified 09/12/24 04:25
to Review
azithromycin (Azithromycin) Allergy patient Verified 09/12/24 04:25
denies
celecoxib (From Celebrex) Allergy started to Verified 09/12/24 04:25
break out
with sores
doxycycline Allergy Unknown Verified 09/12/24 04:25
erythromycin base Allergy CHEST PAIN Verified 09/12/24 04:25
furosemide (From Lasix) Allergy 'just Verified 09/12/24 04:25
doesn't
feel good'
- takes
bumetanide
at home
09/04/23
kanamycin Allergy Unknown Verified 09/12/24 04:25
latex Allergy Rash Verified 09/12/24 04:25
ciprofloxacin (From Cipro) AdvReac dizziness Verified 09/12/24 04:25
�Medication �Instructions �Recorded �Confirmed �Type
atorvastatin 40 mg tablet (Lipitor) 40 mg PO HS High cholesterol 06/22/20 09/12/24 History
ropinirole 2 mg tablet 8 mg PO BID Neurological Condition 07/25/22 09/12/24 History
apixaban 5 mg tablet (Eliquis) 5 mg PO BID Blood Clot 04/04/23 09/12/24 History
Prevention/Tx
omeprazole 40 mg capsule,delayed 40 mg PO DAILY Gastrointestinal 04/04/23 09/12/24 History
release Issue
pregabalin 150 mg capsule 150 mg PO BID Neurological 04/04/23 09/12/24 History
Condition
albuterol sulfate 90 mcg/actuation 2 puff inhalation R Q4HPRN PRN sob 01/17/24 09/12/24 History
aerosol inhaler wheezing
tramadol 50 mg tablet 50 mg PO Q8HPRN PRN moderate pain 03/18/24 09/12/24 History
miconazole nitrate 2 % topical 1 applic topical BIDPRN PRN b/l 06/05/24 09/12/24 History
powder (Miconazorb AF) breasts and abd folds
nadolol 20 mg tablet 20 mg PO HS #30 tabs 06/10/24 09/12/24 Rx
bumetanide 0.5 mg tablet 0.5 mg PO DAILYPRN PRN fluid 09/12/24 09/12/24 History
Review of Systems
-
History Source: Patient
All other systems: Negative unless noted
Physical Exam
Vital Signs
Temp Pulse Resp BP Pulse Ox
97.4 F 100 24 99/49 91
09/12/24 04:25 09/12/24 11:01 09/12/24 11:01 09/12/24 11:01 09/12/24 11:01
Lab Results
09/12/24 04:48
09/12/24 04:48
Troponin I 0.053 ng/ml H* 09/12/24 04:48
Jtf-D-Wygdeygohij Pept 1180 pg/ml 09/12/24 04:48
Physical Exam
General: No Apparent Distress, Comfortable and Other (obese)
HEENT: Normocephalic, Anicteric and Moist Mucous Membranes
Respiratory: Clear and Non Labored Respirations
Cardiac: S1/S2 and Irregular Rhythm
Musculoskeletal: No Clubbing, No Cyanosis and Edema (1+ of RLE. L AKA. RLE dressing c/d/i)
Skin: Warm and Dry
Neuro: AO x 3
Impression / Plan
-
Primary Screening Nurse: Dr. Thao
Assessment:
Presentation with back pain
Right lower extremity pain
Chronic right lower extremity wound with acute cellulitis
PAD with L AKA
Paroxysmal atrial fibrillation, with RVR on arrival
Chronic OAC with Eliquis
Chronic HFpEF
History of CVA 2019
HTN
HLD
severe RLS
History of DVT
ECHO 06/09/24: TDS, EF 60 to 65%, mild concentric LVH, mild MR, mild with peak/mean gradient 19/11 mmHg, NESSA 1.5 cm�, PAP 25 to 30 mmHg
Plan:
- Patient presented with back pain and right lower extremity pain. Found to have evidence of acute cellulitis of known right lower extremity wound. She has significant PAD with prior left AKA
- Noted to be in atrial fibrillation with rapid ventricular response upon arrival. She has history of paroxysmal A-fib maintained as an outpatient on Eliquis and nadolol. Likely A-fib episode triggered by acute infectious process
- Currently on IV Cardizem gtt at 10, may need to decrease due to hypotension. Will stop outpatient nadolol and transition to Toprol 25 mg daily and attempt to wean IV Cardizem
- Continue Eliquis
- Echocardiogram 05/2024 with results as above
- Chest CT without evidence of acute heart failure. But does show moderate coronary artery calcifications. Initial troponin 0.053, uptrending from admission. Trend to peak. No chest pain.
- Continue wound care, abx per primary service
Data Reviewed
-
EKG: Tracing Personally Visualized and interpreted
CT Scan: Report Reviewed by me
Medical Tests (Nuc Med, Echo etc): Report Reviewed by me
Labs: Labs Reviewed by me
Old Records: Reviewed
--- NOTE | 2024-09-12 11:12 | CON.ID ---
Consultation
-
Date/Time Consultation Requested: September 12, 2024 1030
Date/Time Consultation Performed: September 12, 2024 1115
Requesting Provider: Mita Ventura
Performing Provider: Dr. Annalise Becker
Reason for Consultation: RLE wounds
Chief Complaint / Past History
Chief Complaint
Chest pain
History of Present Illness
Abi Thompson is an 84-year-old female well-known to infectious disease service with a significant past medical history of A-fib, left AKA, chronic venous stasis wounds, lower extremity lymphedema who presented to the ER today due to rapid A-fib.
Patient follows at wound care center for the chronic wounds with have been getting worse. She did seek second opinion at [facility] wound center twice. 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
gangrenosum. However she did not tolerate the steroid with severe pain, steroid discontinued. She was then seen at the ID office yesterday for worsening leg wounds. 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
on her leg. She was given 3 options: either try levofloxacin po, or hospitalization for IV Avycaz, or set up home IV Avycaz which will be very expensive. Of note patient with history of intolerance to ciprofloxacin resulting in dizziness. However
there is little cross-reactivity between Cipro and levofloxacin. Patient opted to try levofloxacin. However, she did not start the levofloxacin as she was not feeling well. She started having pain on her scapula similar to her previous PE pain.
It did not go away. She called her primary care physician at 2:30 AM who recommended she come to the ER which she did. In the ER white count 14.9, afebrile. Patient noted to be in rapid A-fib. CT of the chest showed no aortic dissection. She
is started on vancomycin and cefepime. Patient states she continues to have severe right leg wound pain.
Past History
Additional Past Medical History:
Hx CVA/TIA
HTN
DVT/PE
Afib
HFpEF
hypothyroidism
partial thyroidectomy
Right LE chronic venous stasis wounds, colonized with MDR-Pseudomonas
BMI 38
L TKR
R shoulder replacement
endometriosis s/p hysterectomy, colon resection
L AKA
cervical and lumbar fusion
Restless leg syndrome
Allergy History:
adhesive (Adhesive) Allergy (Verified 09/12/24 04:25)
Itching/REDNESS
Aminoglycosides Allergy (Verified 09/12/24 04:25)
Pharmacy to Review
azithromycin (Azithromycin) Allergy (Verified 09/12/24 04:25)
patient denies
celecoxib (From Celebrex) Allergy (Verified 09/12/24 04:25)
started to break out with sores
doxycycline Allergy (Verified 09/12/24 04:25)
Unknown
erythromycin base Allergy (Verified 09/12/24 04:25)
CHEST PAIN
furosemide (From Lasix) Allergy (Verified 09/12/24 04:25)
'just doesn't feel good' - takes bumetanide at home 09/04/23
kanamycin Allergy (Verified 09/12/24 04:25)
Unknown
latex Allergy (Verified 09/12/24 04:25)
Rash
ciprofloxacin (From Cipro) Adverse Reaction (Verified 09/12/24 04:25)
dizziness
Medications Reviewed: Yes
Current Antibiotics:
Cefepime 2 g IV every 8 hours
Vancomycin
Social History
Tobacco: Non-Smoker
Alcohol: None
Drug: None
Personal:
Family History
Family History: Not Pertinent
Review of Systems
Review of Systems
General: Negative Fever, Chills or Change in Appetite
HEENT: Negative Sinus Problems or Headache
Respiratory: Negative Dyspnea or Cough
Gasteroenterology: Negative Nausea, Vomiting or Diarrhea
Neurological: Negative Dizziness
All systems: All other systems were reviewed and were negative
Vital Signs
Temp Pulse Resp BP Pulse Ox
97.4 F 100 24 99/49 91
09/12/24 04:25 09/12/24 11:01 09/12/24 11:01 09/12/24 11:09/12/24 11:01
Physical Exam
Physical Exam
Constitutional: No Acute Distress and Comfortable
Cardiovascular: Irregular Rate (tachycardic)
Pulmonary: Clear
Gastrointestinal: Soft, Non Tender and Non Distended
Extremities: Erythema (RLE); Negative Edema (RLE)
Wound: Other (See photos below)
Neurological: AO x 3
Lab / Diagnostic Study Results
09/12/24 04:48
09/12/24 04:48
Abs Immat Gran (auto) 0.4 10^3/uL (0-0.05) H 09/12/24 04:48
Absolute Neuts (auto) 11.4 10^3/uL (1.4-6.5) H 09/12/24 04:48
Absolute Lymphs (auto) 2.1 10^3/uL (1.2-3.4) 09/12/24 04:48
Absolute Monos (auto) 0.9 10^3/uL (0.1-0.6) H 09/12/24 04:48
Absolute Basos (auto) 0.0 10^3/uL (0-0.2) 09/12/24 04:48
Immature Gran % 2.4 % (0-0.5) H 09/12/24 04:48
Neutrophils % 76.7 % (42.2-75.2) H 09/12/24 04:48
Lymphocytes % 13.8 % (20.5-51.1) L 09/12/24 04:48
Monocytes % 6.3 % (1.7-9.3) 09/12/24 04:48
Eosinophils % 0.5 % (0-6) 09/12/24 04:48
Basophils % 0.3 % (0-2) 09/12/24 04:48
Microbiology Results
Micro:
09/12/24 10:49 Wound Culture - Pending
Leg - Right Gram Stain - Pending
09/12/[address]: No evidence of pulmonary embolism or thoracic aortic dissection. Mild bibasilar subsegmental atelectasis, otherwise clear lungs.
Assessment / Plan
# RLE wound cellulitis
# Deterioration of chronic venous stasis RLE wounds
# Leukocytosis
# RLE lymphedema - pt not consistently compliant with compression.
# Abx intolerances: cefepime (mental status change); cipro (dizziness)
- Leg wounds colonized with CR-Pseudomonas
- DC Vanco/cefepime.
- Start Avycaz 2.5g IV q8h.
- Wound Care consulted.
- Jeovanny compression as tolerated.
- Trend WBC
# Afib with RVR
- Management as per Display Carver
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
Hx CVA/TIA
HTN
DVT/PE
Afib
HFpEF
hypothyroidism
partial thyroidectomy
Right LE chronic venous stasis wounds, colonized with MDR-Pseudomonas
BMI 38
L TKR
R shoulder replacement
endometriosis s/p hysterectomy, colon resection
L AKA
cervical and lumbar fusion
Restless leg syndrome
Care Review
Plan reviewed with: Physician (Dr. Lawrence)
[2024-09-12 11:47] LABS: Troponin I 0.062 ng/ml
[2024-09-12] MEDS: NSS 250 IV (12:31)
--- NOTE | 2024-09-12 12:39 | CM ---
Addendum entered by Petra Pineda 09/12/24 15:50:
Case Management Consult completed:
Met with patient and her at the bedside in the ED and offered Advance Directive Packet as requested in Case Management Consult. They stated that they recently updated the one they have and refused what I had to offer.
Original Note:
Met with patient at bedside in the ED
Pharmacy verified: [facility] [address] [facility]
Patient lives with and live-in caregiver; multilevel home; Ramps to enter; 1st floor set up; bathroom has large shower stall; shower chair, grab bars
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
SNF stay 2021 @ [facility] 8 years ago; Current with [facility]
will transport home
Discharge plan to be determined; case management will monitor for needs/services and support when identified
[2024-09-12] MEDS: PROTONIX 40 MG PO (16:41)
[2024-09-12] MEDS: CARDIZEM IV (17:13)
[2024-09-12] MEDS: ELIQUIS 5 MG PO (17:13)
[2024-09-12] MEDS: REQUIP 4 MG PO ×2 (17:33→21:26)
--- NOTE | 2024-09-12 17:47 | PTCARENOTE ---
Patient arrived to IMU from ED. Patient slid from stretcher to bed. AOx3. On RA with SpO2 greater than 92%. BP stable. A fib with PVC's on monitor. Cardizem gtt infusing at 5 mL/hr Takes oral pills with applesauce. Assist x2 to roll in bed. Utilizes
bed wells. L AKA. Wound care completed to R lower extremity wound. Call schmid within reach, bed in lowest position, and bed of wheels locked.
[2024-09-12 18:31] LABS: Troponin I 0.053 ng/ml
[2024-09-12] MEDS: LYRICA 150 MG PO (19:26)
[2024-09-12] MEDS: LIPITOR 40 MG PO (21:26)
[2024-09-12] MEDS: TYLENOL 650 MG PO (23:00)
[2024-09-13] VITALS (14 sets, daily range): BP systolic 97–128; BP diastolic 51–92; PULSE 99; O2SAT 91–97; BMI 38.8
[2024-09-13 00:28] LABS: Troponin I 0.050 ng/ml
[2024-09-13] MEDS: ULTRAM 50 MG PO ×3 (00:57→21:37)
--- NOTE | 2024-09-13 01:24 | PTCARENOTE ---
Pt converted to NSR from Afib/PVCs confirmed by EKG. Rate 70's-80's. BP 109/55. Marleny CHAPA TT'd and made aware. Cardizem gtt stopped and disconnected. Currently pt sleeping comfortably. Will continue to monitor.
[2024-09-13 06:09] LABS: Blood Urea Nitrogen 14 mg/dl (7-17); Calcium 8.3 mg/dl (8.4-10.2); Carbon Dioxide 30 mmol/L (22-30); Chloride 107 mmol/L (98-107); Estimated Creatinine Clearance 69 ml/min; Glucose 129 mg/dl (70-99); Magnesium 2.0 mg/dl (1.6-2.3); Potassium 3.9 mmol/L (3.5-5.1); Sodium 138 mmol/L (135-145); eGFR > 60.00
[2024-09-13] MEDS: TYLENOL 650 MG PO ×2 (06:11→17:06)
[2024-09-13 06:21] LABS: Troponin I 0.037 ng/ml
[2024-09-13 06:41] LABS: Hematocrit 31.5 % (37.0-47.0); Hemoglobin 9.7 g/dL (12.0-16.0); Mean Corp Hgb Conc. 30.8 g/dL (33.0-37.0); Mean Corpuscular Volume 81.0 fL (81.0-99.0); Nucleated Red Blood Cells % 0 %; Platelet Count 250 10^3/uL (130-400); Red Cell Dist. Width 19.2 % (11.5-14.5)
--- NOTE | 2024-09-13 08:35 | W.PN.CARDCBS ---
Today's Communication / Plan
-
Discontinue diltiazem drip, uptitrate beta-nora monitor response
Monitor on telemetry
Antibiotics per primary service
Will sign off, please call with questions
Impression / Plan
-
Primary Mine Development Engineer: Dr. Thao
Assessment:
Presentation with back pain
Right lower extremity pain
Chronic right lower extremity wound with acute cellulitis
PAD with L AKA
Paroxysmal atrial fibrillation, with RVR on arrival
Chronic OAC with Eliquis
Chronic HFpEF
History of CVA 2019
HTN
HLD
severe RLS
History of DVT
ECHO 06/09/24: TDS, EF 60 to 65%, mild concentric LVH, mild MR, mild with peak/mean gradient 19/11 mmHg, NESSA 1.5 cm�, PAP 25 to 30 mmHg
Plan:
- Patient presented with back pain and right lower extremity pain. Found to have evidence of acute cellulitis of known right lower extremity wound. She has significant PAD with prior left AKA
- Noted to be in atrial fibrillation with rapid ventricular response upon arrival. She has history of paroxysmal A-fib maintained as an outpatient on Eliquis and nadolol. Likely A-fib episode triggered by acute infectious process
- Currently on IV Cardizem gtt at 5 we will plan to discontinue and increase metoprolol succinate to 25 mg twice daily
- Continue Eliquis
- Echocardiogram 05/2024 with results as above
- Chest CT without evidence of acute heart failure. But does show moderate coronary artery calcifications. Initial troponin 0.053, uptrending from admission. Trend to peak. No chest pain.
- Continue wound care, abx per primary service for underlying infection; monitor on telemetry. No further recommendations from CV standpoint, please call back with questions
Progress Note - Mine Development Engineer
Subjective
Date of Service: September 13, 2024
Patient seen and examined this morning. No acute events overnight. Patient resting comfortably noting resolution of shortness of breath following sabianist of sinus rhythm. Denies chest pain, shortness of breath, palpitations, weakness.
Objective
Labs:
09/13/24 05:28
09/13/24 05:28
Labs
Hgb 9.7 g/dL (12.0-16.0) L 09/13/24 05:28
Hct 31.5 % (37.0-47.0) L 09/13/24 05:
Plt Count 250 10^3/uL (130-400) D 09/13/24 05:28
Sodium 138 mmol/L (135-145) 09/13/24 05:
Potassium 3.9 mmol/L (3.5-5.1) 09/13/24 05:
BUN 14 mg/dl (7-17) 09/13/24 05:28
Creatinine 0.5 mg/dL (0.6-1.0) L 09/13/24 05:
Glucose 129 mg/dl (70-99) H 09/13/24 05:28
Troponins
09/12/24 09/12/24 09/12/24
04:48 10:49 15:05
Troponin I 0.053 H* 0.062 H* Cancelled
09/12/24 09/12/24 09/12/24
17:54 21:05 23:57
Troponin I 0.053 H* Cancelled 0.050 H*
09/13/24
05:28
Troponin I 0.037 H* D
Vital Signs and I&O:
Vital Signs
Temp Pulse Resp BP Pulse Ox
98.3 F 75 16 109/52 94
09/13/24 03:08 09/13/24 04:30 09/13/24 04:30 09/13/24 04:00 09/13/24 04:30
Vital Signs
Temp Pulse Resp BP Pulse Ox
98.3 F 75 16 109/52 94
09/13/24 03:08 09/13/24 04:30 09/13/24 04:30 09/13/24 04:00 09/13/24 04:30
Intake & Output
09/11/24 09/12/24 09/13/24 09/14/24
06:59 06:59 06:59 06:59
Intake Total 480 / 480
Output Total 300 / 300
Balance 180 / 180
Physical Exam
Physical Exam
GENERAL: no acute distress
EYE: sclera anicteric
NECK: Supple, no JVD, no carotid bruit appreciated
ENT: normal nose, moist mucosal membranes
CARDIAC: Irregularly irregular, +S1/S2, no murmur, rubs, or gallops
CHEST/PULMONARY: Normal effort, clear breath sounds
ABDOMEN: Soft, without focal tenderness or distention
NEUROLOGICAL: Alert and oriented x3
SKIN: Warm and dry, no rash; left AKA; RLE wrapped foot to knee, 1+ edema at knee
PSYCH: Normal and appropriate interaction.
Telemetry AF with conversion to sinus rhythm at 12:05 AM remains sinus rhythm
[2024-09-13] MEDS: ELIQUIS 5 MG PO ×2 (08:45→20:41)
[2024-09-13] MEDS: REQUIP 4 MG PO ×3 (08:45→20:42)
[2024-09-13] MEDS: TOPROL XL 25 MG PO ×2 (08:46→20:41)
[2024-09-13] MEDS: PROTONIX 40 MG PO (08:46)
[2024-09-13] MEDS: LYRICA 150 MG PO ×2 (08:46→20:41)
--- NOTE | 2024-09-13 11:19 | W.PN.ID1 ---
Date of Service
Date of Service: September 13, 2024
Today's Communication
- Continue Avycaz 2.5g IV q8h (d2)
- Trial of po levofloxacin 750mg po qd; if tolerates can use for outpt abx.
Assessment / Plan
# RLE wound cellulitis
# Deterioration of chronic venous stasis RLE wounds
# Leukocytosis- improving
# RLE lymphedema - pt not consistently compliant with compression.
# Abx intolerances: cefepime (mental status change); cipro (dizziness)
- Leg wounds with hx CR-Pseudomonas
- Continue local wound care.
- Continue Avycaz 2.5g IV q8h (d2)
- Trial of po levofloxacin 750mg po qd; if tolerates can use for outpt abx.
- Trend WBC
# Afib with RVR, now in sinus
- Management as per Telehealth Nurse Educator
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
Hx CVA/TIA
HTN
DVT/PE
Afib
HFpEF
hypothyroidism
partial thyroidectomy
Right LE chronic venous stasis wounds, colonized with MDR-Pseudomonas
BMI 38
L TKR
R shoulder replacement
endometriosis s/p hysterectomy, colon resection
L AKA
cervical and lumbar fusion
Restless leg syndrome
Chief Complaint
-: Cellulitis
Subjective / Review of Systems
Leg less pain.
Vital Signs / Physical Exam
Vital Signs
Vital Signs
Temp Pulse Resp BP Pulse Ox
97.6 F 85 17 105/61 97
09/13/24 11:14 09/13/24 08:00 09/13/24 08:00 09/13/24 08:00 09/13/24 08:00
Physical Exam
Constitutional: No Acute Distress and Comfortable
Cardiovascular: Regular Rate and S1/S2
Pulmonary: Clear
Gastrointestinal: Soft, Non Tender and Non Distended
Wound: Other (RLE dressing in place)
Neurological: AO x 3
Objective Data
Lab Data
Lab Results
09/13/24 05:28
09/13/24 05:28
Estimated Creat Clear 69 ml/min 09/13/24 05:28
Total Bilirubin 0.4 mg/dl (0.2-1.3) 09/12/24 04:48
AST 18 U/L (14-36) 09/12/24 04:48
ALT 18 U/L (0-35) 09/12/24 04:48
Alkaline Phosphatase 78 U/L (38-126) 09/12/24 04:48
Most recent labs reviewed.
Micro Results:
09/12/24 17:39 MRSA Screen - Pending
Nose
09/12/24 10:49 Wound Culture - Pending
Leg - Right Gram Stain - Preliminary
09/12/[address]: No evidence of pulmonary embolism or thoracic aortic dissection. Mild bibasilar subsegmental atelectasis, otherwise clear lungs.
[2024-09-13] MEDS: LEVAQUIN 750 MG PO (12:34)
[2024-09-13] MEDS: MIRALAX 17 GRAMS PO (14:47)
[2024-09-13] MEDS: SENOKOT-S 1 TABLET PO (14:47)
--- NOTE | 2024-09-13 17:18 | W.PN.HOSP.TC ---
Today's Communication/Plan
-
Continue antibiotics
Stop Cardizem Drip
Transfer to telemetry
Assessment / Plan
Assessment / Plan
Physical Exam
General: Well Developed and No Apparent Distress
HEENT: NormoCephalic and Moist mucous membranes
Respiratory: Clear to Auscultation Bilaterally
Cardiac: S1/S2, Irregularly Irregular Rhythm and Tachycardia
GI: Soft, Non Tender, Non Distended and Normal Bowel Sounds
Musculoskeletal: Other (Left otnfa-dca-stgz amputation. Right lower extremity with chronic appearing wound, tender to palpation, erythema and drainage noted.)
Neuro: Awake, Alert, Oriented and AO x 3
Psych: Calm
Assessment/Plan
#Sepsis secondary to right lower extremity cellulitis
#Hx of Chronic right lower extremity venous stasis wounds, follows ID Dr. Becker outpatient
# Leukocytosis
# RLE lymphedema - pt not consistently compliant with compression.
# Abx intolerances: cefepime (mental status change); cipro (dizziness)
- Leg wounds colonized with CR-Pseudomonas
-right lower extremity colonized with multidrug-resistant Pseudomonas (Ceftazidime, Zosyn, Aztreonam)
-IVF boluses given cautiously in the setting of heart failure
-Chronic open right lower extremity wound with prior infection
-Wound culture
-Continue Avycaz - Trial of po levofloxacin 750mg po qd; if tolerates can use for outpt abx.
-Wound consult, wound care
-Compression stockings, elevate leg to improve lymphatic drainage
-ID consult for abx guidance
#Paroxysmal atrial fibrillation with rapid ventricular response likely secondary to sepsis and cellulitis
-EKG on presentation, A-fib with RVR
-Rate control with IV Cardizem drip -- stop Diltiazem drip and transition to Metoprolol Succinate 25 mg twice daily
-Hold nadolol in the setting of soft BPs
-Cardiology consult to evaluate
-Continue anticoagulation with Eliquis
#Type II myocardial infarction secondary to demand ischemia
-Troponin mildly elevated at 0.053
-Likely secondary to supply/demand mismatch from A-fib
-No Ischemic changes on EKG
-Trend trop
-Cardiology consult
#Moderate Coronary Artery Calcifications
#Back pain likely multifactorial- mechanical vs musculoskeletal
-Denies respiratory symptoms
-CTA no PE or dissection, mild bibasilar atelectasis, moderate coronary artery calcification
-Pain control with Tylenol, tramadol
-PT/OT
#Chronic HFpEF
-No signs of acute decompensation, although at the last admission, required ICU level of care and BiPAP
-Echocardiogram 06/01/2024 with LVEF 60-65%, normal regional wall motion, moderate mitral regurg, mild
-proBNP 1180
-Hold bumetanide today, as already initiated on IV fluid. Hold further IV fluids
-Daily weights, I's and O's
-Monitor creatinine, BMP
-Cardiology consult
#History of DVT/PE
-Continue anticoagulation
#Essential hypertension
-Hold antihypertensives in the setting of soft BPs
#Hyperlipidemia
-Continue atorvastatin
#Chronic left ulnar neuropathy
#Spinal Stenosis
-Continue Tramadol
#Restless leg syndrome
-Continue ropinirole, pregabalin
#Anemia
-etiology likely Anemia of chronic disease
-monitor Hgb
-Transfuse for Hgb <7
#History of obstructive sleep apnea
-Not on home CPAP, did not tolerate in the past
#History of asthma
-Continue albuterol
-Not in acute exacerbation
#BMI-38 obesity
Affects all aspects of care
DVT prophylaxis Eliquis
CODE STATUS Full Code
Anticipated Discharge: 24 - 48 hours
Subjective/Interval History
-
Date of Service: September 13, 2024
Patient was seen and examined. She denied any new symptoms or complaints.
Objective Data
-
Labs:
Laboratory Results
09/13/24
05:28
WBC 11.4 H
Hgb 9.7 L
Hct 31.5 L
Plt Count 250 D
Sodium 138
Potassium 3.9
Chloride 107
Carbon Dioxide 30
BUN 14
Creatinine 0.5 L
Glucose 129 H
Calcium 8.3 L
Vital Signs:
Vital Signs
Temp Pulse Resp BP Pulse Ox
97.6 F 85 17 105/61 97
09/13/24 11:14 09/13/24 08:00 09/13/24 08:00 09/13/24 08:00 09/13/24 08:00
I&O
09/12/24 09/13/24 09/14/24
06:59 06:59 06:59
Intake Total 480 / 480
Output Total 300 / 300
Balance 180 / 180
--- NOTE | 2024-09-13 18:34 | PTCARENOTE ---
Wound care completed x2 this shift- right lower leg with copious drainage. WOC consult order in. Remains in SR on tele. OOB with PT/OT today - contact guard to get back in bed this pm. She is able to give good direction. Appetite good. PRN
Senna and Miralax given for constipation. C/o pain 5-6/10 right leg- Ultram given x1 and Tylenol x1- takes requipt as scheduled.
[2024-09-13] MEDS: LIPITOR 40 MG PO (20:42)
[2024-09-13] MEDS: FLUSH (NSS) 2 FLUSH IV (21:35)
[2024-09-14] VITALS (13 sets, daily range): BP systolic 88–144; BP diastolic 45–86; BMI 38.7
--- NOTE | 2024-09-14 01:42 | PTCARENOTE ---
Pt resting comfortably overnight. SR/ST on CM rate 90's-low 100's. 2L NC HS d/t sleep apnea and desats into 80's. Less pain overnight. One dose Ultram given with good relief to right LE. Dressing c/d/i to right lower leg. HS bath given. Rest of
assessment as documented. Maintained on Q2hr turns. Call schmid remain within reach. Will continue to monitor.
[2024-09-14 04:31] LABS: Hematocrit 33.1 % (37.0-47.0); Hemoglobin 10.0 g/dL (12.0-16.0); Mean Corp Hgb Conc. 30.2 g/dL (33.0-37.0); Mean Corpuscular Volume 80.5 fL (81.0-99.0); Nucleated Red Blood Cells % 0 %; Platelet Count 232 10^3/uL (130-400); Red Cell Dist. Width 19.2 % (11.5-14.5)
[2024-09-14 04:55] LABS: Blood Urea Nitrogen 12 mg/dl (7-17); Calcium 8.0 mg/dl (8.4-10.2); Carbon Dioxide 30 mmol/L (22-30); Chloride 106 mmol/L (98-107); Estimated Creatinine Clearance 68 ml/min; Glucose 132 mg/dl (70-99); Magnesium 2.0 mg/dl (1.6-2.3); Potassium 4.0 mmol/L (3.5-5.1); Sodium 138 mmol/L (135-145); eGFR > 60.00
[2024-09-14] MEDS: LYRICA 150 MG PO ×2 (07:17→20:03)
[2024-09-14] MEDS: REQUIP 4 MG PO ×3 (07:18→21:48)
[2024-09-14] MEDS: TYLENOL 650 MG PO ×2 (07:18→15:26)
[2024-09-14] MEDS: PROTONIX 40 MG PO (07:18)
[2024-09-14] MEDS: ELIQUIS 5 MG PO ×2 (07:18→20:03)
[2024-09-14] MEDS: LEVAQUIN 750 MG PO (07:18)
[2024-09-14] MEDS: TOPROL XL 25 MG PO ×2 (07:18→20:02)
[2024-09-14] MEDS: ULTRAM 50 MG PO ×2 (07:19→15:26)
--- NOTE | 2024-09-14 09:25 | W.PN.ID1 ---
Date of Service
Date of Service: September 14, 2024
Today's Communication
Continue Avycaz and levofloxacin.
Assessment / Plan
# RLE wound cellulitis
# Deterioration of chronic venous stasis RLE wounds
# Leukocytosis- resolved
# RLE lymphedema - pt not consistently compliant with compression.
# Abx intolerances: cefepime (mental status change); cipro (dizziness)
- Leg wounds with hx CR-Pseudomonas
- Continue local wound care.
- Continue Avycaz 2.5g IV q8h (d3)
- Trial of po levofloxacin 750mg po qd (d2); so far no significant adverse effects. If continues to tolerate can use for outpt abx.
# Afib with RVR, now in sinus
- Management as per [employer]afe Registrar
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
Hx CVA/TIA
HTN
DVT/PE
Afib
HFpEF
hypothyroidism
partial thyroidectomy
Right LE chronic venous stasis wounds, colonized with MDR-Pseudomonas
BMI 38
L TKR
R shoulder replacement
endometriosis s/p hysterectomy, colon resection
L AKA
cervical and lumbar fusion
Restless leg syndrome
Chief Complaint
-: Cellulitis
Subjective / Review of Systems
She reports tolerating levofloxacin so far.
Did have SOB when sat up to eat breakfast.
R leg pain decreased to 6 out of 10.
Vital Signs / Physical Exam
Vital Signs
Vital Signs
Temp Pulse Resp BP Pulse Ox
98.0 F 74 20 112/63 92
09/14/24 07:27 09/14/24 07:18 09/14/24 04:00 09/14/24 07:18 09/14/24 04:00
Physical Exam
Constitutional: No Acute Distress
Cardiovascular: Regular Rate and S1/S2
Pulmonary: Clear
Gastrointestinal: Soft, Non Tender and Non Distended
Wound: Other (RLE dressing in place)
Neurological: AO x 3
Objective Data
Lab Data
Lab Results
09/14/24 04:08
09/14/24 04:08
Estimated Creat Clear 68 ml/min 09/14/24 04:08
Total Bilirubin 0.4 mg/dl (0.2-1.3) 09/12/24 04:48
AST 18 U/L (14-36) 09/12/24 04:48
ALT 18 U/L (0-35) 09/12/24 04:48
Alkaline Phosphatase 78 U/L (38-126) 09/12/24 04:48
Most recent labs reviewed.
Micro Results:
09/12/24 17:39 MRSA Screen - Final
Nose No Methicillin Resistant Staphylococcus aureus isolated.
09/12/24 10:49 Wound Culture - Preliminary
Leg - Right Gram Stain - Preliminary
09/12/[address]: No evidence of pulmonary embolism or thoracic aortic dissection. Mild bibasilar subsegmental atelectasis, otherwise clear lungs.
--- NOTE | 2024-09-14 14:00 | PTCARENOTE ---
AOx3. NSR on the monitor. On RA with SpO2 greater than 92%. BP stable. Takes oral pills with applesauce. Assist x2 to roll in bed. Utilizes bed wells. L AKA. Wound care completed to R lower extremity wound. Call schmid within reach, bed in lowest
position, and bed of wheels locked.
--- NOTE | 2024-09-14 15:00 | W.PN.HOSP.TC ---
Today's Communication/Plan
-
Continue IV antibiotics
Transfer to telemetry
Assessment / Plan
Assessment / Plan
Physical Exam
General: Well Developed and No Apparent Distress
HEENT: NormoCephalic and Moist mucous membranes
Respiratory: Clear to Auscultation Bilaterally
Cardiac: S1/S2, Irregularly Irregular Rhythm and Tachycardia
GI: Soft, Non Tender, Non Distended and Normal Bowel Sounds
Musculoskeletal: Other (Left brouz-adq-kzha amputation. Right lower extremity with chronic appearing wound, tender to palpation, erythema and drainage noted.)
Neuro: Awake, Alert, Oriented and AO x 3
Psych: Calm
Assessment/Plan
#Sepsis secondary to right lower extremity cellulitis
#History of Chronic right lower extremity venous stasis wounds, follows ID Dr. Becker outpatient
#Leukocytosis
#RLE lymphedema - pt not consistently compliant with compression.
#Antibiotics intolerances: cefepime (mental status change); cipro (dizziness)
- Leg wounds colonized with CR-Pseudomonas
-right lower extremity colonized with multidrug-resistant Pseudomonas (Ceftazidime, Zosyn, Aztreonam)
-IVF boluses given cautiously in the setting of heart failure
-Chronic open right lower extremity wound with prior infection
-Wound culture
-Continue Avycaz
-Patient failed trial of po levofloxacin 750mg po QD as she did not tolerate it with abdominal spasms -- checked with Dr. Becker who recommended stopping Levofloxacin
-Wound consult, wound care
-Compression stockings, elevate leg to improve lymphatic drainage
-ID consult for abx guidance
#Paroxysmal atrial fibrillation with rapid ventricular response likely secondary to sepsis and cellulitis
-EKG on presentation, A-fib with RVR
-Rate control with IV Cardizem drip -- on 09/13/24, Diltiazem drip stopped and transitioned to Metoprolol Succinate 25 mg twice daily
-Hold nadolol in the setting of soft BPs
-Cardiology consult to evaluate
-Continue anticoagulation with Eliquis
#Type II myocardial infarction secondary to demand ischemia
-Troponin mildly elevated at 0.053
-Likely secondary to supply/demand mismatch from A-fib
-No Ischemic changes on EKG
-Trend trop
-Cardiology consult
#Spasms in abdomen on 09/14/24
-Vital signs acceptable during the above symptoms on 09/14/24
-Discontinue Levofloxacin as per Dr. Becker (please see above)
-Check EKG and trops
#Moderate Coronary Artery Calcifications
#Back pain likely multifactorial- mechanical vs musculoskeletal
-Denies respiratory symptoms
-CTA no PE or dissection, mild bibasilar atelectasis, moderate coronary artery calcification
-Pain control with Tylenol, tramadol
-PT/OT
#Chronic HFpEF
-No signs of acute decompensation, although at the last admission, required ICU level of care and BiPAP
-Echocardiogram 06/01/2024 with LVEF 60-65%, normal regional wall motion, moderate mitral regurg, mild
-proBNP 1180
-Was given IV fluids earlier in hospitalization.
-Will follow weights and resume home Bumetanide soon.
-Daily weights, I's and O's
-Monitor creatinine, BMP
-Cardiology consult
#History of DVT/PE
-Continue anticoagulation
#Essential Hypertension
-Hold antihypertensives in the setting of soft BPs
#Hyperlipidemia
-Continue atorvastatin
#Chronic left ulnar neuropathy
#Spinal Stenosis
-Continue Tramadol
#Restless leg syndrome
-Continue ropinirole, pregabalin
#Anemia
-etiology likely Anemia of chronic disease
-monitor Hgb
#History of obstructive sleep apnea
-Not on home CPAP, did not tolerate in the past
#History of asthma
-Continue albuterol
-Not in acute exacerbation
#BMI-38 obesity
Affects all aspects of care
DVT prophylaxis: Eliquis
CODE STATUS Full Code
Anticipated Discharge: > 48 hours
Subjective/Interval History
-
Date of Service: September 14, 2024
Patient was seen and examined. She denied any new significant complaints.
Objective Data
-
Labs:
Laboratory Results
09/14/24
04:08
WBC 9.0
Hgb 10.0 L
Hct 33.1 L
Plt Count 232
Sodium 138
Potassium 4.0
Chloride 106
Carbon Dioxide 30
BUN 12
Creatinine 0.4 L
Glucose 132 H
Calcium 8.0 L
Vital Signs:
Vital Signs
Temp Pulse Resp BP Pulse Ox
98.2 F 80 16 118/45 94
09/14/24 14:55 09/14/24 11:41 09/14/24 11:41 09/14/24 11:41 09/14/24 10:00
I&O
09/13/24 09/14/24 09/15/24
06:59 06:59 06:59
Intake Total 480 / 480 1740 / 1740
Output Total 300 / 300 1150 / 1150
Balance 180 / 180 590 / 590
--- NOTE | 2024-09-14 15:37 | PTCARENOTE ---
Patient notified RN that she felt 'weird' and was having stomach spasms. Patient was unable to explain 'feeling weird'. Denied chest pain. 95% on RA. HR in 80's in NSR. BP 95/60. Dr. Lawrence and Dr. Becker made aware. EKG and trops done. Patient
also stated that she is having R leg pain, PRN pain medication given per MAR. Care ongoing.
[2024-09-14 16:00] LABS: Troponin I 0.015 ng/ml
--- NOTE | 2024-09-14 17:22 | PTCARENOTE ---
Patient transferred to 4W. Patient belongings transferred with patient. Verbal report given to Yael TOTH
--- NOTE | 2024-09-14 18:45 | VNURNOTE ---
Chart reviewed.� Patient is current with [facility] nursing.� Will continue to follow hospital course and DC plans.
[2024-09-14] MEDS: LIPITOR 40 MG PO (21:48)
[2024-09-15] VITALS (7 sets, daily range): BP systolic 107–161; BP diastolic 54–70; PULSE 91; O2SAT 96; BMI 38.4
[2024-09-15] MEDS: TYLENOL 650 MG PO ×2 (02:00→21:14)
[2024-09-15] MEDS: ULTRAM 50 MG PO ×2 (02:00→21:15)
[2024-09-15 02:11] LABS: Troponin I 0.013 ng/ml
[2024-09-15 07:13] LABS: Hematocrit 34.4 % (37.0-47.0); Hemoglobin 10.4 g/dL (12.0-16.0); Mean Corp Hgb Conc. 30.2 g/dL (33.0-37.0); Mean Corpuscular Volume 81.5 fL (81.0-99.0); Nucleated Red Blood Cells % 0 %; Platelet Count 254 10^3/uL (130-400); Red Cell Dist. Width 19.3 % (11.5-14.5)
[2024-09-15 07:25] LABS: Blood Urea Nitrogen 14 mg/dl (7-17); Calcium 8.2 mg/dl (8.4-10.2); Carbon Dioxide 36 mmol/L (22-30); Chloride 104 mmol/L (98-107); Estimated Creatinine Clearance 68 ml/min; Glucose 124 mg/dl (70-99); Magnesium 1.9 mg/dl (1.6-2.3); Potassium 3.7 mmol/L (3.5-5.1); Sodium 140 mmol/L (135-145); eGFR > 60.00
[2024-09-15 07:41] LABS: Troponin I 0.022 ng/ml
[2024-09-15] MEDS: REQUIP 4 MG PO ×3 (08:06→21:14)
[2024-09-15] MEDS: PROTONIX 40 MG PO (08:06)
[2024-09-15] MEDS: TOPROL XL 25 MG PO ×2 (08:07→20:02)
[2024-09-15] MEDS: ELIQUIS 5 MG PO ×2 (08:07→20:02)
[2024-09-15] MEDS: LYRICA 150 MG PO ×2 (08:07→20:01)
--- NOTE | 2024-09-15 09:39 | WOUNDNOTE ---
RIGHT LATERAL LEG
--- NOTE | 2024-09-15 09:40 | WOUNDNOTE ---
RIGHT MEDIAL LEG
--- NOTE | 2024-09-15 09:41 | WOUNDNOTE ---
RIGHT MEDIAL LEG
--- NOTE | 2024-09-15 10:45 | WOUNDNOTE ---
[facility] RN note: Patient admitted with sepsis to right LE
See H&P for complete history.
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
Wound Location and type/assessment: Patient admitted with venous ulcers to right LE. Wound covers the circumference of the leg and ranges from foot to mid calf. Deeper, necrotic areas of yellow slough and eschar are noted. No odor, moderate to
large amounts of drainage. Patient follows and [facility] and said she has been managing wound for [address] Becker who was present during assessment. Per patient and Dr. Becker, patient has had arterial studies in the past at [facility] and
likely cause of ulcers is venous. Also consulted Dr. Hoskins for wound recommendations and suggestions as he knows patient from [facility]. Some fungal appearing skin on groin is noted and Desenex powder has been ordered. Patient turns in bed with
assistance and sacrum is intact. Right heel intact.
Appetite: Fair
Pressure redistribution devices in place: Static air overlay added to bed, patient could not tolerate side laying position at time of repositioning. Right leg off-loaded with pillow under calf.
Plan: Local wound care provided as ordered and FRENCH applied. Patient tolerated wound care well. Orders confirmed. RN Walker assisted with wound care and was updated on plan. Patient should continue to follow up at [facility].
Note to case management of equipment requested for discharge:
Recommend follow up at wound care center upon discharge.
--- NOTE | 2024-09-15 11:05 | CM ---
CM reviewed chart, patient seen bedside. 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 Script received from [facility], faxed to [facility] to check benefits/cost. Will update patient once cost
received. CM will continue to follow for all discharge planning needs.
Plan; clinicals faxed to [facility] for benefits check
--- NOTE | 2024-09-15 11:28 | W.PN.ID1 ---
Date of Service
Date of Service: September 15, 2024
Today's Communication
- Continue Avycaz 2.5g IV q8h (d4 of 11-25)
- Infusion sheet submitted to case consultant for pricing of this expensive abx and if patient can afford it.
Assessment / Plan
# RLE wound cellulitis
# Deterioration of chronic venous stasis RLE wounds
# Leukocytosis- resolved
# RLE lymphedema - pt not consistently compliant with compression.
# Multiple Abx intolerances: cefepime (mental status change); cipro (dizziness); levofloxacin (stomach spasms0
- Appreciate Wound Care team
- Continue local wound care.
- Leg wounds with CR-Pseudomonas as previous
- Continue Avycaz 2.5g IV q8h (d4 of 11-25)
- Infusion sheet submitted to case consultant for pricing of this expensive abx and if patient can afford it.
- Continue contact precaution.
# Afib with RVR, now in sinus
- Management as per Customer Complaint Clerk
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
Hx CVA/TIA
HTN
DVT/PE
Afib
HFpEF
hypothyroidism
partial thyroidectomy
Right LE chronic venous stasis wounds, colonized with MDR-Pseudomonas
BMI 38
L TKR
R shoulder replacement
endometriosis s/p hysterectomy, colon resection
L AKA
cervical and lumbar fusion
Restless leg syndrome
Chief Complaint
-: Cellulitis
Subjective / Review of Systems
Did not tolerate levofloxacin yesterday, felt weird and stomach spasms.
Vital Signs / Physical Exam
Vital Signs
Vital Signs
Temp Pulse Resp BP Pulse Ox
97.5 F 59 18 123/54 90
09/15/24 11:11 09/15/24 11:11 09/15/24 11:11 09/15/24 11:11 09/15/24 11:11
Physical Exam
Constitutional: No Acute Distress and Comfortable
Cardiovascular: Regular Rate and S1/S2
Pulmonary: Clear
Gastrointestinal: Soft, Non Tender, Non Distended and Normal Bowel Sounds
Extremities: Edema (RLE lymphedema)
Wound: Other (Examined with wound nurse: distal RLE with large circumferential punched out wounds with areas dark yellow slough; dorsum of foot with several punched out wounds. RLE decreased erythema)
Neurological: AO x 3
Objective Data
Lab Data
Lab Results
09/15/24 06:54
09/15/24 06:55
Estimated Creat Clear 68 ml/min 09/15/24 06:55
Total Bilirubin 0.4 mg/dl (0.2-1.3) 09/12/24 04:48
AST 18 U/L (14-36) 09/12/24 04:48
ALT 18 U/L (0-35) 09/12/24 04:48
Alkaline Phosphatase 78 U/L (38-126) 09/12/24 04:48
Most recent labs reviewed.
Micro Results:
09/12/24 10:49 Wound Culture - Preliminary
Leg - Right Pseudomonas aeruginosa
Proteus mirabilis
Enterococcus species
Group C Streptococcus
Gram Stain - Preliminary
09/12/24 17:39 MRSA Screen - Final
Nose No Methicillin Resistant Staphylococcus aureus isolated.
09/12/[address]: No evidence of pulmonary embolism or thoracic aortic dissection. Mild bibasilar subsegmental atelectasis, otherwise clear lungs.
[2024-09-15] MEDS: DAKIN'S SOLUTION 0.125% 1/4 STRENGTH 20 ML TOPICAL (12:06)
--- NOTE | 2024-09-15 12:44 | W.PN.HOSP.TC ---
Today's Communication/Plan
-
Case Management working on prior auth for home IV antibiotic infusion
Assessment / Plan
Assessment / Plan
Physical Exam
General: Well Developed and No Apparent Distress
HEENT: NormoCephalic and Moist mucous membranes
Respiratory: Clear to Auscultation Bilaterally
Cardiac: S1/S2, Irregularly Irregular Rhythm and Tachycardia
GI: Soft, Non Tender, Non Distended and Normal Bowel Sounds
Musculoskeletal: Other (Left idses-iab-grug amputation. Right lower extremity with chronic appearing wound, tender to palpation, erythema and drainage noted.)
Neuro: Awake, Alert, Oriented and AO x 3
Psych: Calm
Assessment/Plan
#Sepsis secondary to right lower extremity cellulitis
#History of Chronic right lower extremity venous stasis wounds, follows ID Dr. Becker outpatient
#Leukocytosis
#RLE lymphedema - pt not consistently compliant with compression.
#Antibiotics intolerances: cefepime (mental status change); cipro (dizziness)
- Leg wounds colonized with CR-Pseudomonas
-right lower extremity colonized with multidrug-resistant Pseudomonas (Ceftazidime, Zosyn, Aztreonam)
-IVF boluses given cautiously in the setting of heart failure
-Chronic open right lower extremity wound with prior infection
-Wound culture
-Continue Avycaz 2.5g IV q8h (d4 of 10-14). Dr. Becker submitted infusion sheet to case management rn.
-Patient failed trial of po levofloxacin 750mg po QD as she did not tolerate it with abdominal spasms -- checked with Dr. Becker who recommended stopping Levofloxacin
-Wound consult, wound care
-Compression stockings, elevate leg to improve lymphatic drainage
-ID consult for abx guidance
#Paroxysmal atrial fibrillation with rapid ventricular response likely secondary to sepsis and cellulitis
-EKG on presentation, A-fib with RVR
-Rate control with IV Cardizem drip -- on 09/13/24, Diltiazem drip stopped and transitioned to Metoprolol Succinate 25 mg twice daily
-Hold nadolol in the setting of soft BPs
-Cardiology consult to evaluate
-Continue anticoagulation with Eliquis
#Type II myocardial infarction secondary to demand ischemia
-Troponin was mildly elevated
-Likely secondary to supply/demand mismatch from A-fib
-No Ischemic changes on EKG
-Cardiology consult
#Spasms in abdomen on 09/14/24
-Vital signs acceptable during the above symptoms on 09/14/24
-Discontinue Levofloxacin as per Dr. Becker (please see above)
-Check EKG and trops
#Moderate Coronary Artery Calcifications
#Back pain likely multifactorial- mechanical vs musculoskeletal
-Denies respiratory symptoms
-CTA no PE or dissection, mild bibasilar atelectasis, moderate coronary artery calcification
-Pain control with Tylenol, tramadol
-PT/OT
#Chronic HFpEF
-No signs of acute decompensation, although at the last admission, required ICU level of care and BiPAP
-Echocardiogram 06/01/2024 with LVEF 60-65%, normal regional wall motion, moderate mitral regurg, mild
-proBNP 1180
-Was given IV fluids earlier in hospitalization.
-Will follow weights and resume home Bumetanide soon.
-Daily weights, I's and O's
-Monitor creatinine, BMP
-Cardiology consult
#History of DVT/PE
-Continue anticoagulation
#Essential Hypertension
-Continue Toprol XL as above
#Hyperlipidemia
-Continue Atorvastatin
#Chronic left ulnar neuropathy
#Spinal Stenosis
-Continue Tramadol
#Restless leg syndrome
-Continue ropinirole, pregabalin
#Anemia
-etiology likely Anemia of chronic disease
-monitor Hgb
#History of obstructive sleep apnea
-Not on home CPAP, did not tolerate in the past
#History of asthma
-Continue albuterol
-Not in acute exacerbation
#BMI-38 obesity
Affects all aspects of care
DVT prophylaxis: Eliquis
CODE STATUS Full Code
Anticipated Discharge: Within 24 hours
Subjective/Interval History
-
Date of Service: September 15, 2024
Patient was seen and examined. She reported she is doing well, has some restless legs syndrome symptoms which is chronic for her, but otherwise denied any other significant symptoms or complaints.
Objective Data
-
Labs:
Laboratory Results
09/15/24 09/15/24
06:54 06:55
WBC 7.1
Hgb 10.4 L
Hct 34.4 L
Plt Count 254
Sodium 140
Potassium 3.7
Chloride 104
Carbon Dioxide 36 H
BUN 14
Creatinine 0.4 L
Glucose 124 H
Calcium 8.2 L
Vital Signs:
Vital Signs
Temp Pulse Resp BP Pulse Ox
97.5 F 59 18 123/54 90
09/15/24 11:11 09/15/24 11:11 09/15/24 11:11 09/15/24 11:11 09/15/24 11:11
I&O
09/14/24 09/15/24 09/16/24
06:59 06:59 06:59
Intake Total 1740 / 1740 240 / 240
Output Total 1150 / 1150
Balance 590 / 590 240 / 240
[2024-09-15 13:22] LABS: Troponin I 0.012 ng/ml
[2024-09-15] MEDS: LIPITOR 40 MG PO (21:14)
[2024-09-16] MEDS: TYLENOL 650 MG PO (02:30)
[2024-09-16 03:13] VITALS: BP 105/54
--- NOTE | 2024-09-16 04:09 | PTCARENOTE ---
Tele alarming for HR in 30's then going to 50's. This RN to room to find patient moaning with c/o dizziness. Patient placed on 2lpm nasal cannula. EKG done. BP 131/63. Sat to 95% on 2lpm n/c. BS 117 Patient states she has these episodes
frequently and feels there are R/T her RLS. She said starts with her legs and goes up her abdomen and to her arms. STAIN APPLICATOR, covering floor, in to eval. Orders adjusted.
--- NOTE | 2024-09-16 04:09 | W.PN.UPDATE ---
Addendum entered and electronically signed by EDUARD Cintron 09/16/24 07:08:
Chest x-ray result shows Mild acute interstitial and alveolar cardiogenic pulmonary edema, patient take bumex at home, will order one time dose of� bumex 0.5mg IV now.�
Original Note:
Update Note
Progress Note Update
Patient is bradycardia with hr in 30s-50s, bp 131/63, SPO2 95% on 2L of O2. BS 117. Complaining of dizziness and intermittent SOB. Denies chest pain.
Diminished lung sound in exam.
-EKG with sinus bradycardia hr 52.
-Will hold metoprolol.
- PRN nebs
-Cardiology consult
-Vbg.
- Pro BNP, Chest x-ray ordered and result is pending.
[2024-09-16 04:16] LABS: Glucose - Point of Care 117 mg/dl (70-99)
[2024-09-16] MEDS: DUONEB 3 ML INH (04:26)
[2024-09-16 04:54] LABS: Venous Blood Gas B.E. 9.3 mmol/L (-4 to +4); Venous Blood Gas O2 Sat % 95.9 %
[2024-09-16 04:57] LABS: Hematocrit 33.2 % (37.0-47.0); Hemoglobin 10.0 g/dL (12.0-16.0); Mean Corp Hgb Conc. 30.1 g/dL (33.0-37.0); Mean Corpuscular Volume 82.0 fL (81.0-99.0); Nucleated Red Blood Cells % 0 %; Platelet Count 205 10^3/uL (130-400); Red Cell Dist. Width 19.5 % (11.5-14.5)
[2024-09-16 05:25] LABS: Blood Urea Nitrogen 10 mg/dl (7-17); Calcium 8.2 mg/dl (8.4-10.2); Carbon Dioxide 34 mmol/L (22-30); Chloride 104 mmol/L (98-107); Estimated Creatinine Clearance 68 ml/min; Glucose 120 mg/dl (70-99); Magnesium 2.0 mg/dl (1.6-2.3); Potassium 3.8 mmol/L (3.5-5.1); Sodium 139 mmol/L (135-145); eGFR > 60.00
[2024-09-16 06:08] VITALS: BMI 39.3
[2024-09-16] MEDS: FLUSH (NSS) 1 FLUSH IV (06:36)
[2024-09-16 07:00] VITALS: BP 125/52
--- NOTE | 2024-09-16 07:24 | W.PN.HOSP.TC ---
Today's Communication/Plan
-
Bradycardia and SOB overnight -- resolved with IV Bumex.
Patient may need scheduled Bumex on discharge. Appreciate cardiology.
Continue antibiotics.
CM home VN consult placed.
Assessment / Plan
Assessment / Plan
Physical Exam
General: Well Developed and No Apparent Distress
HEENT: Normocephalic and Moist mucous membranes
Respiratory: Clear to Auscultation Bilaterally
Cardiac: S1/S2, Regular Rate and Rhythm
GI: Soft, Non Tender, Non Distended and Normal Bowel Sounds
Musculoskeletal: Other (Left [id number] amputation. Right lower extremity with chronic appearing wound, tender to palpation, erythema and drainage noted.)
Neuro: Awake, Alert, Oriented and AO x 3
Psych: Calm
Assessment/Plan
#Sepsis secondary to right lower extremity cellulitis
#History of Chronic right lower extremity venous stasis wounds, follows ID Dr. Becker outpatient
#Leukocytosis
#RLE lymphedema - pt not consistently compliant with compression.
#Antibiotics intolerances: cefepime (mental status change); cipro (dizziness)
-Leg wounds colonized with CR-Pseudomonas
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
-IVF boluses given cautiously in the setting of heart failure
-Chronic open right lower extremity wound with prior infection
-Wound culture
-Continue Avycaz 2.5g IV q8h (day 5 of -). Dr. Becker submitted infusion sheet to case monitor.
-Patient failed trial of po levofloxacin 750mg po QD as she did not tolerate it with abdominal spasms -- checked with Dr. Becker who recommended stopping Levofloxacin
-Wound consult, wound care
-Compression stockings, elevate leg to improve lymphatic drainage
-ID consult for abx guidance
#Paroxysmal atrial fibrillation with rapid ventricular response likely secondary to sepsis and cellulitis
-EKG on presentation, A-fib with RVR
-Rate control with IV Cardizem drip -- on 09/13/24, Diltiazem drip stopped and transitioned to Metoprolol Succinate 25 mg twice daily
-Home Nadolol stopped
-Cardiology consult appreciated
-Continue anticoagulation with Eliquis
#Type II myocardial infarction secondary to demand ischemia
-Troponin was mildly elevated
-Likely secondary to supply/demand mismatch from A-fib
-No Ischemic changes on EKG
#Spasms in abdomen on 09/14/24
-Vital signs acceptable during the above symptoms on 09/14/24
-Discontinue Levofloxacin as per Dr. Becker (please see above)
-Seems like a chronic issue for patient
#Moderate Coronary Artery Calcifications
#Back pain likely multifactorial- mechanical vs musculoskeletal
-Denies respiratory symptoms
-CTA no PE or dissection, mild bibasilar atelectasis, moderate coronary artery calcification
-Pain control with Tylenol, tramadol
-PT/OT
#Chronic HFpEF
-No signs of acute decompensation, although at the last admission, required ICU level of care and BiPAP
-Echocardiogram 06/01/2024 with LVEF 60-65%, normal regional wall motion, moderate mitral regurg, mild
-proBNP 1180
-Was given IV fluids earlier in hospitalization.
-Consider standing dose of PO bumex, perhaps 0.5mg MWF as outpatient (patient was only on PRN prior to admission)
-Daily weights, I's and O's
-Monitor creatinine, BMP
-Cardiology consult
#Bradycardia and SOB overnight 09/15/24 to 09/16/24
-Resolved after IV Bumex (patient was given a dose of IV Bumex 0.5 mg this morning)
-Consider standing dose of PO bumex, perhaps 0.5mg MWF as outpatient (patient was only on PRN prior to admission)
-Appreciate cardiology evaluation
#History of DVT/PE
-Continue anticoagulation
#Essential Hypertension
-Continue Toprol XL as above
#Hyperlipidemia
-Continue Atorvastatin
#Chronic left ulnar neuropathy
#Spinal Stenosis
-Continue Tramadol
#Restless leg syndrome
-Continue ropinirole, pregabalin
-Patient reported acute on chronic numbness sensation on 09/16/24 on her RT leg which improved -- patient has been on Eliquis so ischemic stroke unlikely -- likely related to her restless legs syndrome? -- I discussed this with neurologist Dr. Young
who was in agreement that this patient's presentation here CANNOT be ischemic stroke
-CT Head done on 09/16/24 to rule out any bleed and it showed chronic infarct and other chronic changes
#Anemia
-etiology likely Anemia of chronic disease
-monitor Hgb
#History of obstructive sleep apnea
-Not on home CPAP, did not tolerate in the past
#History of asthma
-Continue albuterol
-Not in acute exacerbation
#BMI-38 obesity
Affects all aspects of care
DVT prophylaxis: Eliquis
CODE STATUS Full Code
Anticipated Discharge: 24 - 48 hours
Subjective/Interval History
-
Date of Service: September 16, 2024
Patient was seen and examined. She reported that the SOB and dizziness she had overnight have resolved.
Objective Data
-
Labs:
Laboratory Results
09/16/24
04:44
WBC 6.3
Hgb 10.0 L
Hct 33.2 L
Plt Count 205
Sodium 139
Potassium 3.8
Chloride 104
Carbon Dioxide 34 H
BUN 10
Creatinine 0.4 L
Glucose 120 H
Calcium 8.2 L
Vital Signs:
Vital Signs
Temp Pulse Resp BP Pulse Ox
97.5 F 54 16 105/54 95
09/16/24 03:13 09/16/24 04:29 09/16/24 04:29 09/16/24 03:13 09/16/24 04:29
I&O
09/15/24 09/16/24 09/17/24
06:59 06:59 06:59
Intake Total 240 / 240 750 / 750
Balance 240 / 240 750 / 750
[2024-09-16 08:26] LABS: B.E. 10.7 mmol/L; HCO3 37.0 mmol/L (21-28); O2 Saturation % 93.6 % (94-98); PCO2 57 mmHg (32-35); PO2 62 mmHg (83-108)
[2024-09-16 08:47] LABS: Troponin I < 0.012 ng/ml
[2024-09-16] MEDS: BUMEX 0.5 MG IV (09:29)
[2024-09-16] MEDS: PROTONIX 40 MG PO (09:29)
[2024-09-16] MEDS: ELIQUIS 5 MG PO ×2 (09:29→19:32)
[2024-09-16] MEDS: REQUIP 4 MG PO ×3 (09:29→23:49)
[2024-09-16] MEDS: ULTRAM 50 MG PO ×2 (09:34→17:33)
[2024-09-16] MEDS: LYRICA 150 MG PO ×2 (09:34→19:33)
--- NOTE | 2024-09-16 11:04 | W.PN.ID1 ---
Date of Service
Date of Service: September 16, 2024
Today's Communication
Continue Avycaz
Assessment / Plan
# RLE wound cellulitis
# Deterioration of chronic venous stasis RLE wounds
# Leukocytosis- resolved
# RLE lymphedema - pt not consistently compliant with compression.
# Multiple Abx intolerances: cefepime (mental status change); cipro (dizziness); levofloxacin (stomach spasms0
- Appreciate Wound Care team
- Continue local wound care.
- Leg wounds with CR-Pseudomonas as previous
- Continue Avycaz 2.5g IV q8h (d5 of 11-25)
- Infusion sheet submitted to telehealth case manager for pricing of this expensive abx and if patient can afford it. Prior auth pending
- Continue contact precaution.
# Afib with RVR, now in sinus
# Mild interstitial pulmonary edema
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
Hx CVA/TIA
HTN
DVT/PE
Afib
HFpEF
hypothyroidism
partial thyroidectomy
Right LE chronic venous stasis wounds, colonized with MDR-Pseudomonas
BMI 38
L TKR
R shoulder replacement
endometriosis s/p hysterectomy, colon resection
L AKA
cervical and lumbar fusion
Restless leg syndrome
Chief Complaint
-: Cellulitis
Subjective / Review of Systems
R leg pain continues to improve.
Vital Signs / Physical Exam
Vital Signs
Vital Signs
Temp Pulse Resp BP Pulse Ox
97.3 F 67 22 125/52 96
09/16/24 07:00 09/16/24 07:00 09/16/24 07:00 09/16/24 07:00 09/16/24 07:00
Physical Exam
Constitutional: No Acute Distress and Comfortable
Cardiovascular: Regular Rate and S1/S2
Gastrointestinal: Soft, Non Tender and Non Distended
Wound: Other (RLE dressing dry)
Objective Data
Lab Data
Lab Results
09/16/24 04:44
09/16/24 04:44
Estimated Creat Clear 68 ml/min 09/16/24 04:44
Total Bilirubin 0.4 mg/dl (0.2-1.3) 09/12/24 04:48
AST 18 U/L (14-36) 09/12/24 04:48
ALT 18 U/L (0-35) 09/12/24 04:48
Alkaline Phosphatase 78 U/L (38-126) 09/12/24 04:48
Most recent labs reviewed.
Micro Results:
09/12/24 10:49 Wound Culture - Final
Leg - Right Pseudomonas aeruginosa
Proteus mirabilis
Enterococcus faecalis
Group C Streptococcus
Gram Stain - Final
09/12/24 17:39 MRSA Screen - Final
Nose No Methicillin Resistant Staphylococcus aureus isolated.
09/12/[address]: No evidence of pulmonary embolism or thoracic aortic dissection. Mild bibasilar subsegmental atelectasis, otherwise clear lungs.
09/16/24 CXR: Mild acute interstitial and alveolar cardiogenic pulmonary edema.
--- NOTE | 2024-09-16 11:23 | CM ---
Addendum entered by Saige Maya 09/16/24 15:49:
Patient seen bedside with . Latrell from [facility] met with patient/ earlier for bedside teaching. Referral placed to [facility]. IMM verbally reviewed, provided with copy, placed in chart.
Plan; home with , auth pending from [facility], [facility] VN
[facility]
-
Original Note:
CM reviewed chart, spoke with Latrell from [facility]- cost per week $686.86, will need additional referral for VN, insurance authorization required. Patient seen beside, agreeable to cost, does not want to discharge to SNF. Patient reports she has
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 Patient does not want referral to [facility], referral to [facility] for VN placed. Latrell from [facility] will meet with patient today. CM will continue
to follow for all discharge planning needs.
Plan; home with [facility], referral to [facility], will require auth through [facility]
--- NOTE | 2024-09-16 11:40 | W.PN.CARDCBS ---
Addendum entered and electronically signed by Johan To MD 09/16/24 16:55:
I saw and examined the patient.
The WIRE ROPE FABRICATION SUPERVISOR or PA's note was reviewed and I agree with the note.
Comment: General: Well developed, well nourished in NAD.
Neck: Supple, no JVD, HJR, carotids +2 B/L, no bruits bilaterally.
Heart: Non displaced PMI, RRR, no murmurs, No S3, S4, no rubs.
Lungs: Scattered rhonchi
Extremities: No clubbing, cyanosis or edema bilaterally.
Neuro: Grossly nonfocal, awake, alert and oriented x3.
She is much improved at present and on room air. Will give a dose of IV Bumex today. Possible stable cardiology status for discharge on 09/17. Continue treatment of cellulitis.
Original Note:
Today's Communication / Plan
-
assess response to IV bumex. would consider standing dose of po bumex, perhaps 0.5mg MWF as OP, was only on PRN prior to admission
in SR
continue treatment of RLE cellulitis
Impression / Plan
-
Primary Digester Operator: Dr. Thao
Assessment:
Presentation with back pain
Right lower extremity pain
Chronic right lower extremity wound with acute cellulitis
PAD with L AKA
Paroxysmal atrial fibrillation, with RVR on arrival
Chronic OAC with Eliquis
Elevated troponin, suspected nonischemic myocardial injury
Acute on chronic HFpEF
History of CVA 2019
HTN
HLD
severe RLS
History of DVT
ECHO 06/09/24: TDS, EF 60 to 65%, mild concentric LVH, mild MR, mild with peak/mean gradient 19/11 mmHg, NESSA 1.5 cm�, PAP 25 to 30 mmHg
Plan:
- Patient presented with back pain and right lower extremity pain. Found to have evidence of acute cellulitis of known right lower extremity wound. She has significant PAD with prior left AKA
- She has history of paroxysmal atrial fibrillation and was in A-fib with RVR on arrival. She spontaneously converted to sinus rhythm, and on review of telemetry, remains in sinus rhythm at this time. Her nadolol was stopped this admission in
favor of Toprol 25 mg twice daily.
-Continue Eliquis
- We were asked to see patient back in consult today, as overnight she was noted to have shortness of breath. She states she feels this is secondary to her RLS which is severe. She states that she starts with muscle spasms in her belly which then
go to her arms and she feels short of breath. She is on Requip 4 mg 3 times daily and Lyrica 150 mg twice daily. Defer further treatment to primary service, and would consider neurology evaluation.
- EKG 8/ SR with nonspecific T wave abnormality. trop negative
- She reports her shortness of breath gradually got better. ProBNP elevated at 5460 and CXR with evidence of acute CHF. She was given a dose of IV Bumex 0.5 mg this morning and reports good urinary output. She is on p.o. Bumex 0.5 mg as needed as
an outpatient. We discussed she may require standing dose of p.o. Bumex several times per week upon discharge
- Echocardiogram 05/2024 with results as above
-
Progress Note - Digester Operator
Subjective
Date of Service: September 16, 2024
no CP. reports breathing better. states good urine output with IV bumex.
Objective
Labs:
09/16/24 04:44
09/16/24 04:44
Labs
Hgb 10.0 g/dL (12.0-16.0) L 09/16/24 04:44
Hct 33.2 % (37.0-47.0) L 09/16/24 04:44
Plt Count 205 10^3/uL (130-400) 09/16/24 04:44
Sodium 139 mmol/L (135-145) 09/16/24 04:44
Potassium 3.8 mmol/L (3.5-5.1) 09/16/24 04:44
BUN 10 mg/dl (7-17) 09/16/24 04:44
Creatinine 0.4 mg/dL (0.6-1.0) L 09/16/24 04:44
Glucose 120 mg/dl (70-99) H 09/16/24 04:44
Troponins
09/14/24 09/14/24 09/14/24
15:13 22:30 22:41
Troponin I 0.015 Cancelled Cancelled
09/15/24 09/15/24 09/15/24
01:00 01:31 06:54
Troponin I Cancelled 0.013 0.022 D
09/15/24 09/16/24
12:41 07:47
Troponin I 0.012 D < 0.012
Vital Signs and I&O:
Vital Signs
Temp Pulse Resp BP Pulse Ox
97.3 F 67 22 125/52 96
09/16/24 07:00 09/16/24 07:00 09/16/24 07:00 09/16/24 07:00 09/16/24 07:00
Vital Signs
Temp Pulse Resp BP Pulse Ox
97.3 F 67 22 125/52 96
09/16/24 07:00 09/16/24 07:00 09/16/24 07:00 09/16/24 07:00 09/16/24 07:00
Intake & Output
09/14/24 09/15/24 09/16/24 09/17/24
07:59 07:59 07:59 07:59
Intake Total 1740 / 1740 240 / 240 750 / 750
Output Total 1150 / 1150
Balance 590 / 590 240 / 240 750 / 750
Physical Exam
Physical Exam
GEN: No distress, awake, alert, oriented x3. obese
HEENT: supple, anicteric, mmm, eomi
LUNGS: CTA B/L, no wheezes/rales
CV: Reg, S1/S2, 1/6 syst LSB, no murmur
ABD: soft, BS+, NT/ND
EXT: No cyanosis, clubbing. L AKA. RLE dressing c/d/i
NEURO: Gross non-focal
SKIN: Warm, pink, dry. No rash
[2024-09-16 11:49] VITALS: BP 97/66
[2024-09-16 13:43] LABS: Troponin I < 0.012 ng/ml
[2024-09-16 15:41] VITALS: BP 130/66
[2024-09-16] MEDS: DAKIN'S SOLUTION 0.125% 1/4 STRENGTH 473 ML TOPICAL (17:05)
[2024-09-16 20:06] VITALS: BP 116/52
[2024-09-16 21:46] LABS: Troponin I < 0.012 ng/ml
[2024-09-16] MEDS: FLUSH (NSS) 2 FLUSH IV (23:49)
[2024-09-16] MEDS: LIPITOR 40 MG PO (23:49)
[2024-09-16 23:55] VITALS: BP 154/65
[2024-09-17] VITALS (8 sets, daily range): BP systolic 120–139; BP diastolic 55–90; PULSE 170
[2024-09-17 05:02] LABS: Hematocrit 33.7 % (37.0-47.0); Hemoglobin 10.4 g/dL (12.0-16.0); Mean Corp Hgb Conc. 30.9 g/dL (33.0-37.0); Mean Corpuscular Volume 82.4 fL (81.0-99.0); Nucleated Red Blood Cells % 0 %; Platelet Count 208 10^3/uL (130-400); Red Cell Dist. Width 19.1 % (11.5-14.5)
[2024-09-17 05:24] LABS: Blood Urea Nitrogen 9 mg/dl (7-17); Calcium 7.7 mg/dl (8.4-10.2); Carbon Dioxide 38 mmol/L (22-30); Chloride 99 mmol/L (98-107); Estimated Creatinine Clearance 69 ml/min; Glucose 98 mg/dl (70-99); Potassium 3.3 mmol/L (3.5-5.1); Sodium 138 mmol/L (135-145); eGFR > 60.00
[2024-09-17] MEDS: FLUSH (NSS) 2 FLUSH IV (06:08)
[2024-09-17] MEDS: ULTRAM 50 MG PO (06:34)
[2024-09-17] MEDS: TYLENOL 650 MG PO (06:34)
[2024-09-17 07:51] LABS: Albumin 2.7 g/dl (3.5-5.0)
[2024-09-17] MEDS: LYRICA 150 MG PO ×2 (08:00→20:05)
[2024-09-17] MEDS: ELIQUIS 5 MG PO ×2 (08:00→20:05)
[2024-09-17] MEDS: REQUIP 4 MG PO ×3 (08:00→21:20)
[2024-09-17] MEDS: PROTONIX 40 MG PO (08:00)
--- NOTE | 2024-09-17 11:13 | CM ---
Addendum entered by Petra Pineda 09/17/24 15:24:
Midline Information faxed to [facility]; fax # [phone]
Original Note:
Spoke with [facility]; they reported that coordination of home infusion can be completed tomorrow.
[facility] (# , [phone]) was notified via phone; they reported that they will need the patient to be discharged before 1400 tomorrow
Plan: Discharge to home with home health and home infusion services
--- NOTE | 2024-09-17 12:33 | W.PN.ID1 ---
Date of Service
Date of Service: September 17, 2024
Today's Communication
Continue Avycaz 2.5g IV q8h through 09/25/24.
Assessment / Plan
# RLE wound cellulitis
# Deterioration of chronic venous stasis RLE wounds
# Leukocytosis- resolved
# RLE lymphedema - pt not consistently compliant with compression.
# Multiple Abx intolerances: cefepime (mental status change); cipro (dizziness); levofloxacin (stomach spasms0
- Appreciate Wound Care team
- Continue local wound care, compression.
- Leg wounds with CR-Pseudomonas as previous
- Continue Avycaz 2.5g IV q8h through 09/25/24.
Weekly CBC/diff, CMP while on abx.
- Infusion sheet submitted to rehabilitation case coordinator. Pt agreeable to cost.
- Follow-up at [facility].
- Continue contact precaution.
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
Hx CVA/TIA
HTN
DVT/PE
Afib
HFpEF
hypothyroidism
partial thyroidectomy
Right LE chronic venous stasis wounds, colonized with MDR-Pseudomonas
BMI 38
L TKR
R shoulder replacement
endometriosis s/p hysterectomy, colon resection
L AKA
cervical and lumbar fusion
Restless leg syndrome
Chief Complaint
-: Cellulitis
Subjective / Review of Systems
[facility] in room teaching family members infusion technique.
Vital Signs / Physical Exam
Vital Signs
Vital Signs
Temp Pulse Resp BP Pulse Ox
97.8 F 75 18 123/59 96
09/17/24 12:13 09/17/24 12:13 09/17/24 12:13 09/17/24 12:13 09/17/24 12:13
Physical Exam
Constitutional: No Acute Distress and Comfortable
Cardiovascular: Regular Rate and S1/S2
Gastrointestinal: Soft, Non Tender and Non Distended
Extremities: Edema (RLE)
Wound: Other (RLE dressing dry)
Neurological: AO x 3
Objective Data
Lab Data
Lab Results
09/17/24 04:21
09/17/24 04:21
Estimated Creat Clear 69 ml/min 09/17/24 04:21
Total Bilirubin 0.4 mg/dl (0.2-1.3) 09/12/24 04:48
AST 18 U/L (14-36) 09/12/24 04:48
ALT 18 U/L (0-35) 09/12/24 04:48
Alkaline Phosphatase 78 U/L (38-126) 09/12/24 04:48
Most recent labs reviewed.
Micro Results:
09/12/24 10:49 Wound Culture - Final
Leg - Right Pseudomonas aeruginosa
Proteus mirabilis
Enterococcus faecalis
Group C Streptococcus
Gram Stain - Final
09/12/24 17:39 MRSA Screen - Final
Nose No Methicillin Resistant Staphylococcus aureus isolated.
09/12/[address]: No evidence of pulmonary embolism or thoracic aortic dissection. Mild bibasilar subsegmental atelectasis, otherwise clear lungs.
09/16/24 CXR: Mild acute interstitial and alveolar cardiogenic pulmonary edema.
Care Review
Plan reviewed with: Physician (Dr. Kalina Wylie)
--- NOTE | 2024-09-17 14:20 | W.PN.CARDCBS ---
Addendum entered and electronically signed by Johan To MD 09/17/24 14:54:
I saw and examined the patient.
The PACKAGING SALES or PA's note was reviewed and I agree with the note.
Comment: General: Well developed, well nourished in NAD.
Neck: Supple, no JVD, HJR, carotids +2 B/L, no bruits bilaterally.
Heart: Non displaced PMI, RRR, no murmurs, No S3, S4, no rubs.
Lungs: Scattered rhonchi
Extremities: No clubbing, cyanosis or edema bilaterally.
Neuro: Grossly nonfocal, awake, alert and oriented x3.
Stable cardiology status. Will change to oral diuretics and sign off and arrange follow-up. Call with questions.
Original Note:
Today's Communication / Plan
-
po bumex 0.5mg MWF
BMP/proBNP in 1 week upon DC
continue toprol 25mg BID, eliquis 5mg BID
will arrange OP cardiac followup
continue treatment of RLE cellulitis
Impression / Plan
-
Primary Grain Sacker: Dr. Thao
Assessment:
Presentation with back pain
Right lower extremity pain
Chronic right lower extremity wound with acute cellulitis
PAD with L AKA
Paroxysmal atrial fibrillation, with RVR on arrival
Chronic OAC with Eliquis
Elevated troponin, suspected nonischemic myocardial injury
Acute on chronic HFpEF
History of CVA 2019
HTN
HLD
severe RLS
History of DVT
ECHO 06/09/24: TDS, EF 60 to 65%, mild concentric LVH, mild MR, mild with peak/mean gradient 19/11 mmHg, NESSA 1.5 cm�, PAP 25 to 30 mmHg
Plan:
- Patient with history of paroxysmal atrial fibrillation presented with right lower extremity cellulitis with known significant PAD and prior left AKA. On arrival was in A-fib with RVR. She spontaneously converted to sinus rhythm
- She remains in sinus rhythm at this time on review of telemetry with occasional PACs and PVCs
- Nadolol was stopped in favor of Toprol 25 mg twice daily this admission
- Continue Eliquis
- Breathing much improved with IV Bumex.
- She was on p.o. Bumex 0.5 mg as needed as an outpatient. Would plan for standing dose of p.o. Bumex 0.5mg MWF upon discharge
- BMP/proBNP in 1 week upon DC
- Echocardiogram 05/2024 with results as above
- will arrange OP cardiac follow up
Progress Note - Grain Sacker
Subjective
Date of Service: September 17, 2024
Denies breathing issues, palpitations, chest pain. reports R leg improving
Objective
Labs:
09/17/24 04:21
09/17/24 04:21
Labs
Hgb 10.4 g/dL (12.0-16.0) L 09/17/24 04:21
Hct 33.7 % (37.0-47.0) L 09/17/24 04:21
Plt Count 208 10^3/uL (130-400) 09/17/24 04:21
Sodium 138 mmol/L (135-145) 09/17/24 04:21
Potassium 3.3 mmol/L (3.5-5.1) L 09/17/24 04:21
BUN 9 mg/dl (7-17) 09/17/24 04:21
Creatinine 0.4 mg/dL (0.6-1.0) L 09/17/24 04:21
Glucose 98 mg/dl (70-99) 09/17/24 04:21
Troponins
09/14/24 09/14/24 09/14/24
15:13 22:30 22:41
Troponin I 0.015 Cancelled Cancelled
09/15/24 09/15/24 09/15/24
01:00 01:31 06:54
Troponin I Cancelled 0.013 0.022 D
09/15/24 09/16/24 09/16/24
12:41 07:47 13:06
Troponin I 0.012 D < 0.012 < 0.012
09/16/24 09/17/24
21:13 01:30
Troponin I < 0.012 Cancelled
Vital Signs and I&O:
Vital Signs
Temp Pulse Resp BP Pulse Ox
97.8 F 75 18 123/59 96
09/17/24 12:13 09/17/24 12:13 09/17/24 12:13 09/17/24 12:13 09/17/24 12:13
Vital Signs
Temp Pulse Resp BP Pulse Ox
97.8 F 75 18 123/59 96
09/17/24 12:13 09/17/24 12:13 09/17/24 12:13 09/17/24 12:13 09/17/24 12:13
Intake & Output
09/15/24 09/16/24 09/17/24 09/18/24
07:59 07:59 07:59 07:59
Intake Total 240 / 240 750 / 750 980 / 980
Balance 240 / 240 750 / 750 980 / 980
Physical Exam
Physical Exam
GEN: No distress, awake, alert, oriented x3. obese
HEENT: supple, anicteric, mmm, eomi
LUNGS: CTA B/L, no wheezes/rales
CV: Reg, S1/S2, 1/6 syst LSB, no murmur
ABD: soft, BS+, NT/ND
EXT: No cyanosis, clubbing. L AKA. RLE dressing c/d/i
NEURO: Gross non-focal
SKIN: Warm, pink, dry. No rash
[2024-09-17] MEDS: BUMEX 0.5 MG PO (15:40)
[2024-09-17] MEDS: DAKIN'S SOLUTION 0.125% 1/4 STRENGTH 473 ML TOPICAL (15:43)
--- NOTE | 2024-09-17 16:26 | W.PN.HOSP.TC ---
Today's Communication/Plan
-
Patient to be discharged in the morning tomorrow
Assessment / Plan
Assessment / Plan
Sepsis secondary to right lower extremity cellulitis
History of Chronic right lower extremity venous stasis wounds, follows ID Dr. Becker outpatient
Leukocytosis
RLE lymphedema
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
-Chronic open right lower extremity wound with prior infection, has been following with wound care center at
-Patient was started on oral levofloxacin therapy although unable to tolerate with abdominal pain/spasms
-Continue Avycaz 2.5g IV q8h (day 5 of -). Dr. Becker submitted infusion sheet to case planner.
-Compression stockings, elevate leg to improve lymphatic drainage
Paroxysmal atrial fibrillation with rapid ventricular response likely secondary to sepsis and cellulitis
-Patient required diltiazem drip support for heart rate control
-Patient has been transitioned to Toprol-XL 25 mg twice daily
-Cardiology help appreciated. Patient has been taken off of nadolol.
-Continue with home dose of Eliquis
Type II myocardial infarction secondary to demand ischemia
-Troponin was mildly elevated
-Likely secondary to supply/demand mismatch from A-fib
-No Ischemic changes on EKG
Moderate Coronary Artery Calcifications
Back pain likely multifactorial- mechanical vs musculoskeletal
-CTA no PE or dissection, mild bibasilar atelectasis, moderate coronary artery calcification
-Pain control with Tylenol, tramadol
Chronic HFpEF
-No signs of acute decompensation, although at the last admission, required ICU level of care and BiPAP
-Echocardiogram 06/01/2024 with LVEF 60-65%, normal regional wall motion, moderate mitral regurg, mild
-proBNP 1180
- Patient got IV Bumex, currently on as needed PO Bumex at home
Episode of bradycardia
- Asymptomatic, possible with rate control medication
- Continue monitoring
History of DVT/PE
-Continue anticoagulation
Essential Hypertension
-Continue Toprol XL as above
Hyperlipidemia
-Continue Atorvastatin
Chronic left ulnar neuropathy
Spinal Stenosis
-Continue Tramadol
Restless leg syndrome
-Continue ropinirole, pregabalin
-CT Head done on 09/16/24 to rule out any bleed and it showed chronic infarct and other chronic changes.
Anemia
-etiology likely Anemia of chronic disease
-monitor Hgb
History of obstructive sleep apnea
-Not on home CPAP, did not tolerate in the past
History of asthma
-Continue albuterol
-Not in acute exacerbation
BMI-38 obesity
DVT prophylaxis: Eliquis
CODE STATUS Full Code
Anticipated Discharge: Within 24 hours
Subjective/Interval History
-
Date of Service: September 17, 2024
No issues overnight
Denies having any extremity pain
remains afebrile
Objective Data
-
Labs:
Laboratory Results
09/17/24
04:21
WBC 6.9
Hgb 10.4 L
Hct 33.7 L
Plt Count 208
Sodium 138
Potassium 3.3 L
Chloride 99
Carbon Dioxide 38 H
BUN 9
Creatinine 0.4 L
Glucose 98
Calcium 7.7 L
Vital Signs:
Vital Signs
Temp Pulse Resp BP Pulse Ox
98.1 F 72 18 133/77 96
09/17/24 15:50 09/17/24 15:50 09/17/24 15:50 09/17/24 15:50 09/17/24 15:50
I&O
09/16/24 09/17/24 09/18/24
06:59 06:59 06:59
Intake Total 750 / 750 980 / 980
Balance 750 / 750 980 / 980
Review of Systems
-
Respiratory: Reports No Symptoms
Cardiac: Reports No Symptoms
Abdomen/GI: Reports No Symptoms
Physical Exam
-
General: Negative Appears in Distress
HEENT: Negative Oxygen
Musculoskeletal: Edema, Right Lower Extrem and Edema, Left Lower Extrem
Skin: Other (LE bandage)
Neuro: Awake, Alert and Oriented
[2024-09-17] MEDS: LIPITOR 40 MG PO (21:20)
[2024-09-18 02:13] LABS: Glucose - Point of Care 126 mg/dl (70-99)
[2024-09-18 02:19] VITALS: BP 121/90
[2024-09-18] MEDS: DUONEB 3 ML INH (02:48)
--- NOTE | 2024-09-18 02:49 | PTCARENOTE ---
Patient states that she felt a generalized heaviness and like she was 'going to pass out'. BP 121/90, HR 101, pulse ox is 95% on room air, temperature was 97.6 degrees F, and respirations were 24. Patient was placed on 2L of O2 for comfort.
Respiratory therapist paged to administer PRN breathing treatment. Blood sugar was 126. On-call nurse practitioner made aware. AM labs ordered by provider.
[2024-09-18 03:19] LABS: Hematocrit 35.9 % (37.0-47.0); Hemoglobin 10.9 g/dL (12.0-16.0); Mean Corp Hgb Conc. 30.4 g/dL (33.0-37.0); Mean Corpuscular Volume 82.0 fL (81.0-99.0); Platelet Count 213 10^3/uL (130-400); Red Cell Dist. Width 19.2 % (11.5-14.5)
[2024-09-18 03:48] LABS: Blood Urea Nitrogen 8 mg/dl (7-17); Calcium 8.0 mg/dl (8.4-10.2); Chloride 95 mmol/L (98-107); Estimated Creatinine Clearance 69 ml/min; Glucose 133 mg/dl (70-99); Potassium 3.1 mmol/L (3.5-5.1); Sodium 136 mmol/L (135-145); eGFR > 60.00
[2024-09-18 03:59] LABS: Carbon Dioxide 40 mmol/L (22-30)
[2024-09-18 04:55] LABS: Folate 18.9 ng/ml (2.76-20); Vitamin B12 606 pg/ml (239-931)
[2024-09-18] MEDS: KCL 40 MEQ PO (05:08)
[2024-09-18 06:00] VITALS: BMI 38.5
[2024-09-18] MEDS: TYLENOL 650 MG PO (06:35)
[2024-09-18] MEDS: ULTRAM 50 MG PO (06:36)
[2024-09-18 07:00] VITALS: BP 116/69
[2024-09-18] MEDS: DAKIN'S SOLUTION 0.125% 1/4 STRENGTH 1 ML TOPICAL (09:43)
[2024-09-18] MEDS: ELIQUIS 5 MG PO (09:43)
[2024-09-18] MEDS: LYRICA 150 MG PO (09:43)
[2024-09-18] MEDS: PROTONIX 40 MG PO (09:43)
[2024-09-18] MEDS: REQUIP 4 MG PO (09:43)
--- NOTE | 2024-09-18 10:58 | CM ---
CM reviewed chart, patient seen bedside, for discharge today. IMM verbally reviewed, declined need for copy, placed in chart. Patient confirms her /caregiver will provide transport home in private van. JANNET spoke with Latrell from [facility],
updated patient for discharge today. Update to [facility] on discharge- patient scheduled for 2:00 p.m. home visit. CM will continue to follow for all discharge planning needs.
Plan; home with [facility], [facility]
[2024-09-18 12:25] VITALS: BP 134/80
--- NOTE | 2024-09-18 12:38 | PN.CDI ---
CDI
- -
CDI:
Physician Documentation Request
Admit Date: 09/12/24 10:21
Dear Doctor Dejan,
Clinical Indicators:
Patient admitted with sepsis.
09/16 Cardiology PN, 'Elevated troponin, suspected nonischemic myocardial injury'
09/17 PN, 'Type II myocardial infarction secondary to demand ischemia -Troponin was mildly elevated -Likely secondary to supply/demand mismatch from A-fib'
Troponin trend:
09/12/24 09/12/24 09/12/24
04:48 10:49 17:54
Troponin I 0.053 H* 0.062 H* 0.053 H*
09/12/24 09/13/24
23:57 05:28
Troponin I 0.050 H* 0.037 H* D
Due to potentially conflicting documentation, please clarify the etiology of the troponin elevation:
Non ischemic myocardial injury
Type 2 DE (documentation complete)
Other, please specify
Use of terms such as suspected, likely, concern for, or probable (associated with a specific diagnosis that is being evaluated, monitored, or treated as if it exists) are acceptable and can be coded in the inpatient setting, when documented at the
time of discharge.
Thank you,
IDALIA Mckoy RN
CDI Specialist
available via tiger text
Please use your independent medical judgment in providing your response.
--- NOTE | 2024-09-18 12:45 | W.PN.HOSP.TC ---
Addendum entered and electronically signed by Tong Wylie MD 09/18/24 13:57:
Correction to diagnosis list;
Non ischemic myocardial injury
Acute on chronic diastolic heart failure
Original Note:
Today's Communication/Plan
-
d/c home
Assessment / Plan
Assessment / Plan
Sepsis secondary to right lower extremity cellulitis
History of Chronic right lower extremity venous stasis wounds, follows ID Dr. Becker outpatient
Leukocytosis
RLE lymphedema
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
-Chronic open right lower extremity wound with prior infection, has been following with wound care center at
-Patient was started on oral levofloxacin therapy although unable to tolerate with abdominal pain/spasms
-Continue Avycaz 2.5g IV q8h (day 5 of -). Dr. Becker submitted infusion sheet to sample case porter.
-Compression stockings, elevate leg to improve lymphatic drainage
Paroxysmal atrial fibrillation with rapid ventricular response likely secondary to sepsis and cellulitis
-Patient required diltiazem drip support for heart rate control
-Patient has been transitioned to Toprol-XL 25 mg twice daily
-Cardiology help appreciated. Patient has been taken off of nadolol.
-Continue with home dose of Eliquis
Type II myocardial infarction secondary to demand ischemia
-Troponin was mildly elevated
-Likely secondary to supply/demand mismatch from A-fib
-No Ischemic changes on EKG
Moderate Coronary Artery Calcifications
Back pain likely multifactorial- mechanical vs musculoskeletal
-CTA no PE or dissection, mild bibasilar atelectasis, moderate coronary artery calcification
-Pain control with Tylenol, tramadol
Chronic HFpEF
-No signs of acute decompensation, although at the last admission, required ICU level of care and BiPAP
-Echocardiogram 06/01/2024 with LVEF 60-65%, normal regional wall motion, moderate mitral regurg, mild
-proBNP 1180
- Patient got IV Bumex, currently on as needed PO Bumex at home
Episode of bradycardia
- Asymptomatic, possible with rate control medication
- Continue monitoring
History of DVT/PE
-Continue anticoagulation
Essential Hypertension
-Continue Toprol XL as above
Hyperlipidemia
-Continue Atorvastatin
Chronic left ulnar neuropathy
Spinal Stenosis
-Continue Tramadol
Restless leg syndrome
-Continue ropinirole, pregabalin
-CT Head done on 09/16/24 to rule out any bleed and it showed chronic infarct and other chronic changes.
Anemia
-etiology likely Anemia of chronic disease
-monitor Hgb
History of obstructive sleep apnea
-Not on home CPAP, did not tolerate in the past
History of asthma
-Continue albuterol
-Not in acute exacerbation
BMI-38 obesity
DVT prophylaxis: Eliquis
CODE STATUS Full Code
More than 30 minutes spent in discharge including
Final examination of the patient
Summarizing hospital stay
Instructions for continuing care to all relevant caregivers
Preparation of discharge records, prescriptions, and referral forms
Total time spent (in minutes): 42 mins
Anticipated Discharge: Today
Subjective/Interval History
-
Date of Service: September 18, 2024
Complaining of some dizziness/feeling off overnight
No other problems
Objective Data
-
Labs:
Laboratory Results
09/18/24
03:05
WBC 7.6
Hgb 10.9 L
Hct 35.9 L
Plt Count 213
Sodium 136
Potassium 3.1 L
Chloride 95 L
Carbon Dioxide 40 H
BUN 8
Creatinine 0.4 L
Glucose 133 H
Calcium 8.0 L
Vital Signs:
Vital Signs
Temp Pulse Resp BP Pulse Ox
97.8 F 99 20 134/80 93
09/18/24 12:25 09/18/24 12:25 09/18/24 12:25 09/18/24 12:25 09/18/24 12:25
I&O
09/17/24 09/18/24 09/19/24
06:59 06:59 06:59
Intake Total 980 / 980 480 / 480
Balance 980 / 980 480 / 480
Review of Systems
-
Respiratory: Reports No Symptoms
Cardiac: Reports No Symptoms
Abdomen/GI: Reports No Symptoms
Physical Exam
-
General: Negative Appears in Distress
HEENT: Negative Oxygen
Musculoskeletal: Edema, Right Lower Extrem and Edema, Left Lower Extrem
Skin: Other (LE bandage)
Neuro: Awake, Alert and Oriented
--- NOTE | 2024-09-18 12:47 | PN.CDI ---
CDI
- -
CDI:
Physician Documentation Request
Admit Date: 09/12/24 10:21
Dear Doctor Dejan,
Clinical Indicators:
Patient admitted with sepsis.
09/17 PN, 'Chronic HFpEF No signs of acute decompensation...'
09/17 Cardiology PN, 'Acute on chronic HFpEF...Breathing much improved with IV Bumex.'
Bumex 0.5 mg IV x 2 doses (09/16, 09/17)
BNP
09/16/24
04:44
[id number] Pept 5460
Please clarify the acuity of CHF you are evaluating, treating or monitoring:
Acute on chronic HFpEF
Chronic HFpEF (documentation complete)
Other, please specify
Use of terms such as suspected, likely, concern for, or probable (associated with a specific diagnosis that is being evaluated, monitored, or treated as if it exists) are acceptable and can be coded in the inpatient setting, when documented at the
time of discharge.
Thank you,
IDALIA Mckoy RN
CDI Specialist
available via tiger text
Please use your independent medical judgment in providing your response.
--- NOTE | 2024-09-18 12:50 | W.PN.ID1 ---
Date of Service
Date of Service: September 18, 2024
Today's Communication
DC home.
Assessment / Plan
# RLE wound cellulitis, improving
# Deterioration of chronic venous stasis RLE wounds, improving
# Leukocytosis- resolved
# RLE lymphedema - pt not consistently compliant with compression.
# Multiple Abx intolerances: cefepime (mental status change); cipro (dizziness); levofloxacin (stomach spasms0
- Appreciate Wound Care team
- Continue local wound care.
- Again stress importance of leg elevation and compression.
- Leg wounds with CR-Pseudomonas as previous
- Continue Avycaz 2.5g IV q8h through 09/25/24.
Weekly CBC/diff, CMP while on abx.
- Follow-up at [facility].
-DC home
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
Hx CVA/TIA
HTN
DVT/PE
Afib
HFpEF
hypothyroidism
partial thyroidectomy
Right LE chronic venous stasis wounds, colonized with MDR-Pseudomonas
BMI 38
L TKR
R shoulder replacement
endometriosis s/p hysterectomy, colon resection
L AKA
cervical and lumbar fusion
Restless leg syndrome
Chief Complaint
-: Cellulitis
Subjective / Review of Systems
Pt all dressed and ready to go,
She reports leg pain is now 50% decreased.
Leg no more drainage and slough coming off.
Vital Signs / Physical Exam
Vital Signs
Vital Signs
Temp Pulse Resp BP Pulse Ox
97.8 F 99 20 134/80 93
09/18/24 12:25 09/18/24 12:25 09/18/24 12:25 09/18/24 12:25 09/18/24 12:25
Physical Exam
Constitutional: No Acute Distress and Comfortable
Cardiovascular: Regular Rate and S1/S2
Gastrointestinal: Soft, Non Tender and Non Distended
Extremities: Edema (RLE)
Wound: Other (RLE dressing dry)
Neurological: AO x 3
Objective Data
Lab Data
Lab Results
09/18/24 03:05
09/18/24 03:05
Estimated Creat Clear 69 ml/min 09/18/24 03:05
Total Bilirubin 0.4 mg/dl (0.2-1.3) 09/12/24 04:48
AST 18 U/L (14-36) 09/12/24 04:48
ALT 18 U/L (0-35) 09/12/24 04:48
Alkaline Phosphatase 78 U/L (38-126) 09/12/24 04:48
Most recent labs reviewed.
Micro Results:
09/12/24 10:49 Wound Culture - Final
Leg - Right Pseudomonas aeruginosa
Proteus mirabilis
Enterococcus faecalis
Group C Streptococcus
Gram Stain - Final
09/12/24 17:39 MRSA Screen - Final
Nose No Methicillin Resistant Staphylococcus aureus isolated.
09/12/[address]: No evidence of pulmonary embolism or thoracic aortic dissection. Mild bibasilar subsegmental atelectasis, otherwise clear lungs.
09/16/24 CXR: Mild acute interstitial and alveolar cardiogenic pulmonary edema.
--- NOTE | 2024-09-19 08:51 | W.DCSUMMARY ---
Discharge Summary
Discharge Data
Date of Admission: 09/12/24
Date of Discharge: 09/18/24
-
Pending Results: No
Hospital Course
Disposition: Home with home care
Primary Care Physician: Dr Stef Flores
Principal Discharge Diagnosis:
- Sepsis secondary to right lower extremity cellulitis
- Paroxysmal atrial fibrillation with rapid ventricular response
- Type II myocardial infarction due to demand ischemia
- Leukocytosis
- Back pain
- Episode of asymptomatic bradycardia
Chronic Discharge Diagnosis:
- Chronic right lower extremity venous stasis wounds with lymphedema
- History of pulmonary embolism (PE) and deep vein thrombosis (DVT)
- Heart failure with preserved ejection fraction (HFpEF)
- Essential hypertension
- Hyperlipidemia
- Chronic left ulnar neuropathy
- Spinal stenosis
- Restless leg syndrome
- Anemia, likely anemia of chronic disease
- History of obstructive sleep apnea
- History of asthma
- Obesity (BMI 38)
- Left above-knee amputation
Hospital Course:
An 84-year-old female with a history of PE/DVT (on Eliquis), paroxysmal atrial fibrillation, hypertension, chronic venous insufficiency with right lower extremity wound, left above-knee amputation, HFpEF, and recent ICU admission for heart failure
exacerbation (May 2024) presented to the ED with upper back pain radiating to the left inferior scapula, starting 6 hours prior and associated with shortness of breath, palpitations, and anxiety. She described the pain as similar to her prior PE
pain but denied chest pain, fever, or chills. She also reported ohiod-zo-romsxcm right leg pain from her chronic wound. En route to the ED, she was in atrial fibrillation with RVR (pulse 136, BP 87/59). Labs showed leukocytosis (WBC 14.9),
hemoglobin 11.7, proBNP 1180, and mildly elevated troponin (0.053). In ER CTA chest ruled out PE and thoracic aortic dissection, showing mild bibasilar atelectasis and moderate coronary artery calcification. EKG confirmed atrial fibrillation with
RVR, with no ischemic changes.
The patient was diagnosed with sepsis secondary to right lower extremity cellulitis, with later wound culture showing wounds colonized by multidrug-resistant Pseudomonas. She was started on IV Avycaz, as oral levofloxacin caused abdominal
pain/spasms. IV fluids were given cautiously due to HFpEF, and wound care was continued with compression stockings and leg elevation. Atrial fibrillation with RVR was managed with an IV Cardizem drip, transitioned to Toprol-XL 25 mg twice daily,
with initially home nadolol held due to soft blood pressures. Eliquis was continued for anticoagulation. Troponin elevation was from Type II myocardial infarction attributed to demand ischemia from atrial fibrillation. Back pain was treated with
Tylenol and tramadol. From chronic HF perspective, bumetanide was held initially due to need of IV fluids but resumed as needed. An asymptomatic bradycardia episode was noted on telemetry, likely related to rate control medications, and monitored.
Patient had episode of fluids on presentation CT head was done ruling out any neurological events. Post medical stabilization patient was discharged home with continuation of outpatient wound care and arrangment of IV antibiotic treatment.
Important Imaging Findings:
- CTA chest: No pulmonary embolism or thoracic aortic dissection, mild bibasilar atelectasis, moderate coronary artery calcification
- CT head (09/16/24): Chronic infarct and other chronic changes, no acute bleed
- Echocardiogram (06/01/24): LVEF 60-65%, normal regional wall motion, moderate mitral regurgitation, mild aortic stenosis
Procedure Findings:
- No invasive procedures performed
Discharge Plan
-
Patient Disposition: Home with Home Care
Discharge Diagnosis/Procedures: Cellulitis of LE from CRE pseudomonas, Chronic LE wound, Venous stasis
Condition: Fair
Diet: 2 Gram Sodium
Activity: As tolerated
Driving Restrictions: No driving
Bathing Restrictions: OK to Shower
Blood Work: BMP/proBNP in 1 week
Specialty Instructions: Weigh Daily- Call MD for wt gain/loss 3 lbs overnight/5 lbs in 1 week
Activity Restrictions/Additional Instructions:
Wound Care Instructions Right Lower Leg and Foot Clean with Dakins and adaptic (may also add alginate PRN for areas of moderate or heavy drainage) ABD and kathi or kerlix, apply FRENCH as tolerated. Change daily and PRN drainage.
Air surface
Follow up at wound care center call for an appointment.
Instructions: *DCA Heart Failure Instructions
Referrals:
Piper Mejia PA-C [Specified Professional Personl, Cardiology] - 10/15/24 1:40 pm
Referral Note: You have a cardiology follow-up appointment at the [place] office with Dr. Thao's physician sales and marketing assistant, Piper. Please call with questions
Stef Flores MD [Family Provider, Family Practice] - in one week
Additional Discharge Medication Instructions: -STOP nadolol , changed to Toprol XL.
-Bumex changed to scheduled dose
Prescriptions:
New
bumetanide 0.5 mg Tablet
0.5 mg PO MOWEFR Qty: 30 2RF
CefTAZidime/AVIBACTAM [Avycaz] 2500 MG
0.9% Sodium Chloride [Nss] 50 ML
20.667 mls/hr IV Q8H
For Documentation only - Last dose 09/25/24
Ordered By: Tong Wylie MD
Last Taken: 09/18/24 06:21 62 mls
metoprolol succinate [Toprol XL] 25 mg tablet extended release 24 hr
25 mg PO DAILY Qty: 30 2RF
Continued
atorvastatin [Lipitor] 40 MG tablet
40 mg PO HS
ropinirole 2 MG tablet
4 mg PO .TID-QID
Patient Comments:
09/12/24: Pt states she thinks she takes 2 tablets Q6H but last confirmed dose in [facility] is [address] Becker. No pharmacy fill history available
Eliquis 5 MG tablet
5 mg PO BID
pregabalin 150 mg capsule
150 mg PO BID
omeprazole 40 mg capsule,delayed release(DR/EC)
40 mg PO DAILY
albuterol sulfate 90 mcg/actuation HFA aerosol inhaler
2 puff inhalation R Q4HPRN PRN (Reason: sob wheezing)
tramadol 50 mg tablet
50 mg PO Q8HPRN PRN (Reason: moderate pain)
miconazole nitrate [Miconazorb AF] 2 % powder
1 applic topical BIDPRN PRN (Reason: b/l breasts and abd folds)
Discontinued
nadolol 20 mg Tablet
20 mg PO HS Qty: 30 0RF
bumetanide 0.5 mg tablet
0.5 mg PO DAILYPRN PRN (Reason: fluid)
Discharge Orders:
Discharge Patient (As Directed); Ordered 09/18/24
Ordered By: Tong Wylie
Discharge Date and Time
Discharge Date/Time: 09/18/24 13:04
Print Language: VENEZUELAN
== END 2024-09-18 13:04 | disposition home health service (06) | DRG 871 ==
LOC: 4 WEST ACU 10:21
PROVIDERS: Nurse Practitioner Family; Student in an Organized Health Care Education/Training Program; ADMITTING PHYSICIAN Hospitalist; ATTENDING PHYSICIAN Hospitalist; CONSULT PHYSICIAN Internal Medicine Cardiovascular Disease; CONSULT PHYSICIAN Internal Medicine Infectious Disease; EMERGENCY PHYSICIAN Student in an Organized Health Care Education/Training Program; FAMILY PHYSICIAN Family Medicine
DX: A41.52 Sepsis due to Pseudomonas (principal); I50.33 Acute on chronic diastolic (congestive) heart failure; I50.32 Chronic diastolic (congestive) heart failure; L03.115 Cellulitis of right lower limb; Z16.24 Resistance to multiple antibiotics; I5A Non-ischemic myocardial injury (non-traumatic); I48.0 Paroxysmal atrial fibrillation; I87.2 Venous insufficiency (chronic) (peripheral); G89.29 Other chronic pain; S81.801A Unspecified open wound, right lower leg, initial encounter; X58.XXXA Exposure to other specified factors, initial encounter; I25.10 Atherosclerotic heart disease of native coronary artery without angina pectoris; E66.9 Obesity, unspecified; I11.0 Hypertensive heart disease with heart failure; E78.00 Pure hypercholesterolemia, unspecified; G56.22 Lesion of ulnar nerve, left upper limb; I73.9 Peripheral vascular disease, unspecified; M48.00 Spinal stenosis, site unspecified; G25.81 Restless legs syndrome; R00.1 Bradycardia, unspecified; B96.5 Pseudomonas (aeruginosa) (mallei) (pseudomallei) as the cause of diseases classified elsewhere; D63.8 Anemia in other chronic diseases classified elsewhere; G47.33 Obstructive sleep apnea (adult) (pediatric); J45.909 Unspecified asthma, uncomplicated; I89.0 Lymphedema, not elsewhere classified; E89.0 Postprocedural hypothyroidism; G62.9 Polyneuropathy, unspecified; K21.9 Gastro-esophageal reflux disease without esophagitis; Z68.38 Body mass index [BMI] 38.0-38.9, adult; Z79.01 Long term (current) use of anticoagulants; Z79.899 Other long term (current) drug therapy; Z86.14 Personal history of Methicillin resistant Staphylococcus aureus infection; Z86.711 Personal history of pulmonary embolism; Z86.718 Personal history of other venous thrombosis and embolism; Z86.73 Personal history of transient ischemic attack (TIA), and cerebral infarction without residual deficits; Z89.612 Acquired absence of left leg above knee
CPT/HCPCS: 36600; 70450; 71045; 71275; 80048; 80053; 82040; 82607; 82746; 82805; 82962; 83735; 83880; 84484; 85025; 85027; 87070; 87077; 87147; 87186; 87205; 93005; 93306; 94640; 96365; 96366; 96375; 97163; 97167; 97530; 97535; 99291; J0714; Q9967

== ENCOUNTER 2024-09-24 11:22 | Emergency (ER) | payer MEDICARE, BC, SELFPAY ==
[2024-09-24 11:28] VITALS: BP 104/58
[2024-09-24 11:57] LABS: Hematocrit 37.6 % (37.0-47.0); Hemoglobin 11.0 g/dL (12.0-16.0); Mean Corp Hgb Conc. 29.3 g/dL (33.0-37.0); Mean Corpuscular Volume 85.1 fL (81.0-99.0); Nucleated Red Blood Cells % 0 %; Platelet Count 195 10^3/uL (130-400); Red Cell Dist. Width 21.0 % (11.5-14.5)
[2024-09-24 12:07] VITALS: BP 97/53
[2024-09-24 12:13] LABS: ALT (SGPT) 16 U/L (0-35); AST (SGOT) 23 U/L (14-36); Albumin 3.1 g/dl (3.5-5.0); Alkaline Phosphatase 68 U/L (38-126); Blood Urea Nitrogen 13 mg/dl (7-17); Calcium 8.2 mg/dl (8.4-10.2); Carbon Dioxide 38 mmol/L (22-30); Chloride 103 mmol/L (98-107); Glucose 117 mg/dl (70-99); Potassium 4.7 mmol/L (3.5-5.1); Sodium 141 mmol/L (135-145); Total Protein 5.5 g/dl (6.3-8.2); eGFR > 60.00
--- NOTE | 2024-09-24 12:24 | ED.MUSCINJ ---
HPI-Injury
General
Chief Complaint: Musculo-Skeletal Complaint
Source: patient
Exam Limitations: none
Time Seen by Provider: 09/24/24 12:13
History of Present Illness-Injury
Initial Injury comments:
84-year-old female on Eliquis with history of left kqxcv-ysq-sozs amputation presents from home via EMS with fatigue trouble finding words trouble getting words out and full body twitching sensation. No fever or cough. No chest pain or abdominal
pain she really denies any pain. No other complaints at this time
Past History
Past History
ED Past Medical History: Arrthythmia, HTN, Hypercholesterolemia, Other (DVT) and Other (DVT, cervical disc disease, osteoarthritis, MRSA, DVT/PE); Negative IDDM
ED Past Surgical History: Bowel resection, Gynecological, Orthopedic (Cervical-lumbar fusion, right shoulder replacement 2014, left knee replacement) and Other (Partial thyroidectomy. Multiple dental procedures)
Social History
Tobacco: Non-smoker
Alcohol: None
Drug: None
Personal:
Living: with family
Employment: Retired
Family History
Family History: Hypertension
Phy Exam
Physical Exam
Physical Exam:
General: Well-appearing female no acute respiratory distress
HEENT: Normocephalic atraumatic
Heart: Regular rate and rhythm
Lungs: Clear no wheeze
Abdomen is soft nontender
Extremities: Left clymm-vjl-rqzy amputation right leg with chronic wounds
Neurologic exam: Alert and oriented to person and place. She seems somewhat somnolent however.
Injury Course
Orders/Labs/Results
Orders:
Orders
09/24/24 11:42
Complete Blood Count/With Diff Urgent
Comprehensive Metabolic Panel Urgent
09/24/24 12:21
CT Head W/o Iv Contrast Urgent
Comment:
Reason For Exam: weakness
09/24/24 12:22
CR Chest - 2 Views Urgent
Comment:
Reason For Exam: weakness
09/24/24 14:04
COVID-19 Antigen Urgent
Source: Nasal Swab
Venous Blood Gas Urgent
%Oxygen/Room Air: 5l
09/24/24 17:39
Urinalysis Reflex To Culture Urgent
Date Specimen was Collected: 09/24/24
Time Specimen was Collected: 15:10
Abnormal Lab Results
09/24/24 09/24/24
11:42 14:04
Hgb 11.0 L g/dL
(12.0-16.0)
MCH 24.9 L pg
(27.0-31.0)
MCHC 29.3 L g/dL
(33.0-37.0)
RDW 21.0 H %
(11.5-14.5)
VBG pH 7.46 H
(7.32-7.43)
VBG pO2 169 H mmHg
(30-50)
VBG HCO3 34.1 H mmol/L
(22-27)
Carbon Dioxide 38 H mmol/L
(22-30)
Creatinine 0.5 L mg/dL
(0.6-1.0)
Glucose 117 H mg/dl
(70-99)
Calcium 8.2 L mg/dl
(8.4-10.2)
Total Protein 5.5 L g/dl
(6.3-8.2)
Albumin 3.1 L g/dl
(3.5-5.0)
09/24/24 11:42
09/24/24 11:42
MDM/Problems Addressed
Differential Diagnosis Includes:
Generalized weakness fatigue trouble getting words out. Differential could include viral illness versus dehydration versus pneumonia versus neurologic issue versus medication side effect
Check labs. Urine chest x-ray CT ordered
*Pulse Oximetry
SaO2: 94
Oxygen Mode of Delivery: Room air
Patient hypoxic: no
*Critical Care Note
Total Time (30-74mins, 75-104mins- exclusive of procedures): Not Applicable
Update Note
Update Note:
Reevaluated multiple times. Patient is no longer requiring any oxygen. She is awake and alert and conversing. Her is now with her states she is back to her baseline. Patient has been evaluated here by infectious disease. They are okay
with the patient going home and stopping the antibiotic she has been on for her chronic wounds. She is not hypoxic. Blood pressure cuff placed on the right upper arm which shows a normal blood pressure. At this point she states she took a new
medication for blood pressure within the past day she may be having adverse reaction to this. No indication for admission.
ED Attending Note
-
Portions of this chart may have been created with voice recognition software.� Occasional wrong word or��sound alike� substitutions may have occurred due to the inherent limitations of voice recognition software.
Discharge Plan
Departure
Patient Disposition: Home (Routine Discharge)
Date of Disposition: 09/24/24
Time of Disposition: 17:44
Patient with high blood pressure during this ER visit?: No
Discharge Problem:
Fatigue
Instructions: Fatigue
Prescriptions:
No Action
atorvastatin [Lipitor] 40 MG tablet
40 mg PO HS
ropinirole 2 MG tablet
4 mg PO .TID-QID
Patient Comments:
09/12/24: Pt states she thinks she takes 2 tablets Q6H but last confirmed dose in [facility] is [address] Becker. No pharmacy fill history available
Eliquis 5 MG tablet
5 mg PO BID
pregabalin 150 mg capsule
150 mg PO BID
omeprazole 40 mg capsule,delayed release(DR/EC)
40 mg PO DAILY
albuterol sulfate 90 mcg/actuation HFA aerosol inhaler
2 puff inhalation R Q4HPRN PRN (Reason: sob wheezing)
tramadol 50 mg tablet
50 mg PO Q8HPRN PRN (Reason: moderate pain)
miconazole nitrate [Miconazorb AF] 2 % powder
1 applic topical BIDPRN PRN (Reason: b/l breasts and abd folds)
bumetanide 0.5 mg Tablet
0.5 mg PO MOWEFR Qty: 30 2RF
CefTAZidime/AVIBACTAM [Avycaz] 2500 MG
0.9% Sodium Chloride [Nss] 50 ML
20.667 mls/hr IV Q8H
For Documentation only - Last dose 09/25/24
Ordered By: Tong Wylie MD
Last Taken: Unknown
metoprolol succinate [Toprol XL] 25 mg tablet extended release 24 hr
25 mg PO DAILY Qty: 30 2RF
Referrals:
Stef Flores MD [Family Provider, Family Practice]
Activity Restrictions/Additional Instructions:
Rest. Stay hydrated. Return if worse otherwise follow-up with your doctors
Interventions
Interventions:
*Risk Screen - Suicide Last Done: 09/24/24 11:57
*General Assessment Last Done: 09/24/24 11:31
*Neglect/Abuse Screening Last Done: 09/24/24 11:57
*ED COVID-19 Vaccine History Last Done: 09/24/24 11:31
ED-Musculoskeletal Assessment Last Done: 09/24/24 12:01
Discharge Date and Time
Print Language: [place]ORE[place]
[2024-09-24 13:19] VITALS: BP 138/78
[2024-09-24 14:35] LABS: Venous Blood Gas B.E. 9.0 mmol/L (-4 to +4); Venous Blood Gas O2 Sat % 99.8 %
[2024-09-24 14:45] LABS: COVID-19 Antigen Negative (Negative)
[2024-09-24 16:00] VITALS: BP 90/40
[2024-09-24 17:00] VITALS: BP 111/47
== END 2024-09-24 19:30 | disposition home or self-care (01) ==
LOC: EMR 11:22
PROVIDERS: Physician Assistant; Student in an Organized Health Care Education/Training Program; EMERGENCY PHYSICIAN Emergency Medicine; FAMILY PHYSICIAN Family Medicine
DX: R53.1 Weakness (principal); R25.3 Fasciculation; E78.00 Pure hypercholesterolemia, unspecified; I10 Essential (primary) hypertension; Z89.612 Acquired absence of left leg above knee; Z86.718 Personal history of other venous thrombosis and embolism; Z79.01 Long term (current) use of anticoagulants; Z79.899 Other long term (current) drug therapy
CPT/HCPCS: 99284; 70450; 71046; 80053; 82805; 85025; 87811

== ENCOUNTER → 2024-09-26 10:32 | Outpatient (REF) | payer MEDICARE, BC, SELFPAY | LOC: WOUND 10:32 | PROVIDERS: ATTENDING PHYSICIAN Surgery; FAMILY PHYSICIAN Family Medicine | DX: I87.311 Chronic venous hypertension (idiopathic) with ulcer of right lower extremity (principal); L97.212 Non-pressure chronic ulcer of right calf with fat layer exposed; L88 Pyoderma gangrenosum; I87.2 Venous insufficiency (chronic) (peripheral); I73.9 Peripheral vascular disease, unspecified; I48.0 Paroxysmal atrial fibrillation; Z89.612 Acquired absence of left leg above knee | CPT/HCPCS: 97597 ==

== ENCOUNTER → 2024-10-09 12:39 | Outpatient (REF) | payer MEDICARE, BC, SELFPAY | LOC: WOUND 12:39 | PROVIDERS: ATTENDING PHYSICIAN Surgery; FAMILY PHYSICIAN Family Medicine | DX: I87.311 Chronic venous hypertension (idiopathic) with ulcer of right lower extremity (principal); L97.212 Non-pressure chronic ulcer of right calf with fat layer exposed; I87.2 Venous insufficiency (chronic) (peripheral); I73.9 Peripheral vascular disease, unspecified; Z89.612 Acquired absence of left leg above knee; I48.0 Paroxysmal atrial fibrillation; L88 Pyoderma gangrenosum | CPT/HCPCS: 99213 ==

== ENCOUNTER → 2024-10-24 15:37 | Outpatient (REF) | payer MEDICARE, BC, SELFPAY | LOC: RAD 15:37 | PROVIDERS: ATTENDING PHYSICIAN Family Medicine | DX: R10.84 Generalized abdominal pain (principal) | CPT/HCPCS: 74022 ==

== ENCOUNTER → 2024-10-31 13:39 | Outpatient (REF) | payer MEDICARE, BC, SELFPAY | LOC: WOUND 13:39 | PROVIDERS: ATTENDING PHYSICIAN Surgery; FAMILY PHYSICIAN Family Medicine | DX: I87.311 Chronic venous hypertension (idiopathic) with ulcer of right lower extremity (principal); L97.212 Non-pressure chronic ulcer of right calf with fat layer exposed; I87.2 Venous insufficiency (chronic) (peripheral); I73.9 Peripheral vascular disease, unspecified | CPT/HCPCS: 29581; 99213 ==

== ENCOUNTER → 2024-11-07 14:14 | Outpatient (REF) | payer MEDICARE, BC, SELFPAY | LOC: WOUND 14:14 | PROVIDERS: ATTENDING PHYSICIAN Surgery; FAMILY PHYSICIAN Family Medicine | DX: I87.311 Chronic venous hypertension (idiopathic) with ulcer of right lower extremity (principal); L97.212 Non-pressure chronic ulcer of right calf with fat layer exposed; I87.2 Venous insufficiency (chronic) (peripheral); I73.9 Peripheral vascular disease, unspecified; Z89.612 Acquired absence of left leg above knee; I48.0 Paroxysmal atrial fibrillation; L88 Pyoderma gangrenosum | CPT/HCPCS: 99213 ==

== ENCOUNTER 2024-11-26 17:08 | Inpatient (IN) | payer MEDICARE, BC, SELFPAY ==
[2024-11-26] VITALS (10 sets, daily range): BP systolic 102–136; BP diastolic 59–90; BMI 38.2; BMI 38.1
[2024-11-26 14:45] LABS: Hematocrit 29.0 % (37.0-47.0); Hemoglobin 8.6 g/dL (12.0-16.0); Mean Corp Hgb Conc. 29.7 g/dL (33.0-37.0); Mean Corpuscular Volume 77.3 fL (81.0-99.0); Nucleated Red Blood Cells % 0 %; Platelet Count 335 10^3/uL (130-400); Red Cell Dist. Width 17.0 % (11.5-14.5)
[2024-11-26 15:05] LABS: ALT (SGPT) 15 U/L (0-35); AST (SGOT) 18 U/L (14-36); Albumin 2.8 g/dl (3.5-5.0); Alkaline Phosphatase 80 U/L (38-126); Blood Urea Nitrogen 16 mg/dl (7-17); Calcium 8.3 mg/dl (8.4-10.2); Carbon Dioxide 27 mmol/L (22-30); Chloride 98 mmol/L (98-107); Estimated Creatinine Clearance 68 ml/min; Glucose 220 mg/dl (70-99); Potassium 4.9 mmol/L (3.5-5.1); Sodium 129 mmol/L (135-145); Total Protein 5.6 g/dl (6.3-8.2); eGFR > 60.00
--- NOTE | 2024-11-26 15:18 | ED.GENMED ---
History of Present Illness
General
Chief Complaint: Skin Problem
Time Seen by Provider: 11/26/24 15:18
History of Present Illness
History of Present Illness:
FOCUSED PAST MEDICAL HISTORY
- A-fib, DVT, on Eliquis, had Pseudomonas of the right lower extremity
REVIEW OF OLD RECORDS
- I reviewed records, the patient was admitted here 2 months ago diagnosed with sepsis secondary to the right lower extremity cellulitis treated with IV Avycaz after oral Levaquin cause abdominal pain
Note:
CHIEF COMPLAINT(S)
Concern of leg infection and elevated heart rate.
HISTORY OF PRESENT ILLNESS
The patient is an 84-year-old female with a history of atrial fibrillation, who arrived today via ambulance after being assessed by a visiting nurse at home. The nurse was concerned about the patients elevated heart rate of approximately 140 beats
per minute, as well as a potentially infected leg. The patient states that she was told that her blood pressure was 'low'. Upon arrival, the patients heart rate measured at 113 beats per minute, which is still slightly elevated, but the rhythm is
normal, and the blood pressure is 112/59 mmHg.
The patient reports that she would not have come to the emergency department if not for the nurses advisement. She mentions experiencing chronic hemorrhoidal bleeding and has not noticed any recent significant fluctuations in bodily excretion to
suggest acute changes.
Regarding her leg, the patient describes chronic issues with redness and excoriation, which has been present and worsening over the past years. Currently, her leg exhibits circumferential redness, with much more exudate than before. The patient
experiences significant pain in the affected area. She discontinued intravenous antibiotic treatment approximately six weeks ago. No recent fevers were reported.
PAST MEDICAL AND SURIGICAL HISTORY
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 The patient denies having diabetes.
SOCIAL DETERMINANTS AFFECTING HEALTH
The patient lives with her , who is expected to visit soon.
PHYSICAL EXAM
General: Patient is alert and in no acute distress.
Skin: Noted circumferential erythema around the remaining right lower extremity, with areas of excoriation and significant areas of ulceration. It is tender to touch. Patient also notes increased yellow appearance in the wounds.
Cardiovascular: Heart rate currently at 113 beats per minute, normal rhythm.
Gastrointestinal: No reported or observed acute distress.
Musculoskeletal: Left AKA noted
Neurological: Alert and oriented to person, place, time, and situation.
PROBLEM LIST
Acute:
- Suspected leg infection with chronic excoriation and ulceration.
- Elevated heart rate (tachycardia)
Chronic:
- History of atrial fibrillation
- Poor circulation
- Hemorrhoidal bleeding
- Amputation (left AKA)
PLAN
- Conduct a thorough evaluation of the leg wound for infection, including possibly swabbing for cultures.
- Re-evaluate the patients hemoglobin and consider potential causes for the decline.
- Monitor the patients heart rate and rhythm to ensure it remains within safe parameters, considering past history of atrial fibrillation.
- Follow-up with the patients use of antibiotics and potential need for re-initiation of therapy, based on infection status.
DIFFERENTIAL DIAGNOSIS
The Differential Diagnosis includes, in no particular order and is not limited to:
1. Peripheral vascular disease
2. Cellulitis or soft tissue infection
3. Venous stasis dermatitis
4. Chronic venous insufficiency with stasis ulcers
5. Lymphedema
6. Chronic heart failure with peripheral congestion
7. Thrombophlebitis
8. Anemia of chronic disease
9. Supraventricular tachycardia
10. Deep vein thrombosis
LABS
- White count 10.6, sodium 129, glucose 220
UPDATE
-SUMMARY OF ENCOUNTER
The patient, an 84-year-old female with a history of atrial fibrillation, was evaluated in the emergency department for concerns of a potential leg infection and elevated heart rate. Upon examination, she presented with circumferential erythema and
ulceration on the right lower extremity, suggesting infection. Her heart rate was elevated at 113 beats per minute. Given the severity of her symptoms and risk of complications, a decision was made to admit the patient to the hospital. Infectious
disease specialists were consulted and will manage her antibiotic therapy.
DISPOSITION
Admit
ASSESSMENT
The patient is suspected of having a right lower extremity infection, possibly cellulitis or another soft tissue infection, alongside an elevated heart rate, which may be related to her known atrial fibrillation.
MANAGEMENT OF THE PATIENTS CARE WAS DISCUSSED WITH
Infectious disease consulted and involved in managing antibiotic treatment.
PLAN
The patient will be admitted to the hospital due to the concern of infection in the right lower extremity. Infectious disease specialists are to determine appropriate intravenous antibiotic therapy. Monitor heart rate and address any rhythm
irregularities given the history of atrial fibrillation.
MEDICAL DECISION MAKING
- Number and Complexity of Problems Addressed: Chronic conditions affecting care [atrial fibrillation, poor circulation, history of amputation]. Differential Diagnosis includes peripheral vascular disease, cellulitis or other soft tissue infection,
venous stasis dermatitis, chronic venous insufficiency with stasis ulcers, lymphedema, chronic heart failure with peripheral congestion, thrombophlebitis, anemia of chronic disease, supraventricular tachycardia, deep vein thrombosis.
- Data:
Category 1
- Non-emergency department records reviewed, including patient history and independent lab reviews indicating decreased hemoglobin levels and previously discontinued antibiotics.
- Clinical information was obtained from an independent historian, a visiting nurse who noted concerns regarding elevated heart rate and potential leg infection.
Category 2
- My independent interpretation of the patients condition corroborates with findings of an erythematous and ulcerated right lower extremity, consistent with infection.
Category 3
- Discussion of management with infectious disease specialists to establish intravenous antibiotic regimen.
DIAGNOSIS
- Cellulitis of the right lower extremity (L03.115)
- Tachycardia, unspecified (R00.0)
Past History
Past History
ED Past Medical History: Arrthythmia, HTN, Hypercholesterolemia, Other (DVT) and Other (DVT, cervical disc disease, osteoarthritis, MRSA, DVT/PE); Negative IDDM
ED Past Surgical History: Bowel resection, Gynecological, Orthopedic (Cervical-lumbar fusion, right shoulder replacement 2014, left knee replacement) and Other (Partial thyroidectomy. Multiple dental procedures)
Social History
Tobacco: Non-smoker
Alcohol: None
Drug: None
Personal:
Living: with family
Employment: Retired
Family History
Family History: Hypertension
Phy Exam
Physical Exam
Physical Exam:
See HPI
Sepsis
Sepsis Screening
Sepsis Assessment: Sepsis
Sepsis Screen
Sepsis Screen: Sepsis
Date: 11/26/24
Time: 17:07
Course
Orders/Labs/Results
Orders:
Orders
11/26/24 14:26
Complete Blood Count/With Diff Urgent
Comprehensive Metabolic Panel Urgent
11/26/24 15:46
0.9% Sodium Chloride 500 ml [Nss] 500 ml IV BOLUS
11/26/24 15:49
Lactic Acid Q4H
Comment: CANCEL 2nd LACTIC ACID IF 1st LACTIC ACID IS LESS THAN 2
Blood Culture Q30M
WILLIAM Source: Blood/Venous
Specimen Description:
11/26/24 15:57
Blood Culture Q30M
WILLIAM Source: Blood/Venous
Specimen Description:
Wound Culture [Wound/Abscess/Other Culture] Urgent
WILLIAM Source: Leg
Specimen Description: Right
Date Specimen was Collected: 11/26/24
Time Specimen was Collected: 15:42
11/26/24 16:00
CefTAZidime/AVIBACTAM [Avycaz] 2,500 mg 0.9% Sodium Chloride [Nss] 50 ml IV Q8H
11/26/24 16:36
Ropinirole [Requip] 4 mg PO NOW STA
11/26/24 16:38
Admit/Transfer Patient As Directed
Co-Sign Provider:
Level of Care: Inpatient admission
Assign to:: Medical/Surgical
Physician / Group: Shanita High
Diagnosis: RLE cellulitis, hyponatremia
Reason for Hospitalization: RLE cellulitis, hyponatremia
Expected length of stay greater than two midnights?: Yes
ELOS- Estimated Length of Stay in days: 3
I certify the patient meets the requirements for IP care: Yes
PRN Pain Medication Management As Directed
May give lesser potent ordered pain med per pt: Yes
preference::
Protocol:: Medication orders for pain may be administered in a
manner that supports deferring to patient preference
when the pt is:
- Requesting an ordered lesser potent pain medication.
Least to most potent pain medications are defined
as: acetaminophen < NSAID < tramadol < opioids
(morphine, oxycodone, hydromorphone).
- Requesting a lesser dose of the same medication IF
ORDERED.
- Requesting a less intrusive route of administration
if both routes are prescribed by the provider (PO <
IV).
11/26/24 16:40
Code Status As Directed
Resuscitation Status: Full Code
11/26/24 16:57
Add On- LAB Routine
Tests Added?: TIBC, Ferritin, Iron, B12
11/26/24 16:59
Ropinirole [Requip] 2 mg .ROUTE .STK-MED ONE
11/26/24 19:45
Lactic Acid Q4H
Comment: CANCEL 2nd LACTIC ACID IF 1st LACTIC ACID IS LESS THAN 2
Abnormal Lab Results
11/26/24
14:26
RBC 3.75 L 10^6/uL
(4.20-5.40)
Hgb 8.6 L g/dL
(12.0-16.0)
Hct 29.0 L %
(37.0-47.0)
MCV 77.3 L fL
(81.0-99.0)
MCH 22.9 L pg
(27.0-31.0)
MCHC 29.7 L g/dL
(33.0-37.0)
RDW 17.0 H %
(11.5-14.5)
Abs Immat Gran (auto) 0.1 H 10^3/uL
(0-0.05)
Absolute Neuts (auto) 8.8 H 10^3/uL
(1.4-6.5)
Absolute Lymphs (auto) 1.0 L 10^3/uL
(1.2-3.4)
Absolute Monos (auto) 0.7 H 10^3/uL
(0.1-0.6)
Immature Gran % 0.9 H %
(0-0.5)
Neutrophils % 82.5 H %
(42.2-75.2)
Lymphocytes % 9.5 L %
(20.5-51.1)
Sodium 129 L mmol/L
(135-145)
Glucose 220 H mg/dl
(70-99)
Calcium 8.3 L mg/dl
(8.4-10.2)
Total Protein 5.6 L g/dl
(6.3-8.2)
Albumin 2.8 L g/dl
(3.5-5.0)
11/26/24 14:26
11/26/24 14:26
Vital Signs
Initial and Last Documented VS:
Initial Vital Signs
Temp Pulse Resp BP Pulse Ox
36.8 C 119 16 108/59 93
11/26/24 14:17 11/26/24 14:17 11/26/24 14:17 11/26/24 14:17 11/26/24 14:17
Last Documented Vital Signs
Temp Pulse Resp BP Pulse Ox
36.8 C 108 23 113/67 95
11/26/24 14:17 11/26/24 16:00 11/26/24 16:00 11/26/24 16:00 11/26/24 15:30
*Pulse Oximetry
SaO2: 93
Oxygen Mode of Delivery: Room air
Patient hypoxic: no
*Critical Care Note
Total Time (30-74mins, 75-104mins- exclusive of procedures): Not Applicable
ED Attending Note
-
Portions of this chart may have been created with voice recognition software.� Occasional wrong word or��sound alike� substitutions may have occurred due to the inherent limitations of voice recognition software.
Discharge Plan
Departure
Patient Disposition: Admit
Date of Disposition: 11/26/24
Time of Disposition: 15:45
Presentation/result/management discussed w/ accepting MD/DO: Hospitalist
Patient with high blood pressure during this ER visit?: Yes
Discharge Problem:
Cellulitis of right lower extremity
Prescriptions:
No Action
atorvastatin [Lipitor] 40 MG tablet
40 mg PO HS
ropinirole 2 MG tablet
4 mg PO TID
Patient Comments:
09/12/24: Pt states she thinks she takes 2 tablets Q6H but last confirmed dose in [facility] is [address] Becker. No pharmacy fill history available
Eliquis 5 MG tablet
5 mg PO BID
pregabalin 150 mg capsule
150 mg PO BID
omeprazole 40 mg capsule,delayed release(DR/EC)
40 mg PO DAILY
albuterol sulfate 90 mcg/actuation HFA aerosol inhaler
2 puff inhalation R Q4HPRN PRN (Reason: sob wheezing)
tramadol 50 mg tablet
50 mg PO Q4HPRN PRN (Reason: moderate pain)
miconazole nitrate [Miconazorb AF] 2 % powder
1 applic topical BIDPRN PRN (Reason: b/l breasts and abd folds)
bumetanide 0.5 mg tablet
0.5 mg PO MOWEFR PRN (Reason: increased edema )
metoprolol succinate [Toprol XL] 25 mg tablet extended release 24 hr
25 mg PO HS
Referrals:
Sandra,Stef E., MD [Family Provider, Family Practice]
Interventions
Interventions:
*Risk Screen - Suicide Last Done: 11/26/24 14:23
*General Assessment Last Done: 11/26/24 14:23
*Neglect/Abuse Screening Last Done: 11/26/24 14:23
Discharge Date and Time
Print Language: SWISS
--- NOTE | 2024-11-26 15:52 | HPS.HSE ---
Family Physician
-
Family Physician: Stef Flores
Chief Complaint
-
hypotension and tachycardia
History of Present Illness
Patient is a 84-year-old female with past medical history significant for hypertension, hyperlipidemia, paroxysmal atrial fibrillation, chronic HFpEF, chronic venous insufficiency with right lower extremity wound, restless leg syndrome, neuropathy
and GERD who presented to [facility] ED via EMS from home at recommendation of visiting nurse for evaluation of hypotension and tachycardia. Patient with hospitalization in September 2024 for sepsis 2/2 RLE wound cellulitis and has been receiving home care
since for monitoring and wound care. Visiting nurse today expressed concern for tachycardia and hypotension and recommended patient cme to ED for evaluation so EMS was called. Patient reports increased pain to the RLE recently managed with PRN
Tylenol and PRN tramadol. Denies any fever, chills, cough, shortness of breath, chest pain, nausesa, vomiting, constipation, diarrhea or urinary symptoms.
Medical History
Past Medical History
Past Medical History: Reports Other
Additional Past Medical History:
CVA
PE/DVT
atrial fibrillation on Eliquis
chronic HFpEF
hypertension
hyperlipidemia
GERD
restless leg syndrome
spinal stenosis
neuropathy
Chronic venous insufficiency with right lower extremity wound
Past Surgical History: Reports Other
Additional Past Surgical History:
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
partial thyroidectomy
Cervical-lumbar fusion
right shoulder replacement 2014
left knee replacement
Right knee replacement
Social History
Tobacco: Non-smoker
Alcohol: None
Drug: None
Personal:
Living: With Family
Family History
Family History: Not pertinent
Allergies / Home Medications
Allergies reflects when Allergies were last updated in [employer].
Home Medications with original date entered in [employer]
Allergy/Medication List:
Allergies
Allergy/AdvReac Type Severity Reaction Status Date / Time
adhesive (Adhesive) Allergy Itching/RED Verified 11/26/24 14:22
NESS
Aminoglycosides Allergy Pharmacy Verified 11/26/24 14:22
to Review
azithromycin (Azithromycin) Allergy patient Verified 11/26/24 14:22
denies
celecoxib (From Celebrex) Allergy started to Verified 11/26/24 14:22
break out
with sores
ciprofloxacin (From Cipro) Allergy dizziness Verified 11/26/24 14:22
doxycycline Allergy Unknown Verified 11/26/24 14:22
erythromycin base Allergy CHEST PAIN Verified 11/26/24 14:22
furosemide (From Lasix) Allergy 'just Verified 11/26/24 14:22
doesn't
feel good'
- takes
bumetanide
at home
09/04/23
kanamycin Allergy Unknown Verified 11/26/24 14:22
latex Allergy Rash Verified 11/26/24 14:22
Home Medications
atorvastatin 40 mg tablet (Lipitor) 40 mg PO HS High cholesterol 06/22/20
ropinirole 2 mg tablet 4 mg PO TID RLS 07/25/22
apixaban 5 mg tablet (Eliquis) 5 mg PO BID Blood Clot Prevention/Tx 04/04/23
omeprazole 40 mg capsule,delayed release 40 mg PO DAILY Gastrointestinal Issue 04/04/23
pregabalin 150 mg capsule 150 mg PO BID Neurological Condition 04/04/23
albuterol sulfate 90 mcg/actuation aerosol inhaler 2 puff inhalation R Q4HPRN PRN sob wheezing 01/17/24
tramadol 50 mg tablet 50 mg PO Q4HPRN PRN moderate pain 03/18/24
miconazole nitrate 2 % topical powder (Miconazorb AF) 1 applic topical BIDPRN PRN b/l breasts and abd folds 06/05/24
bumetanide 0.5 mg tablet 0.5 mg PO MOWEFR PRN increased edema 11/26/24
metoprolol succinate 25 mg tablet,extended release 24 hr (Toprol XL) 25 mg PO HS 11/26/24
Review of Systems
-
History Source: Patient
Constitutional: Denies Fever or Chills
EENT: Denies Sore Throat
Respiratory: Denies Cough, Hemoptysis or Trouble Breathing
Cardiac: Denies Chest Pain, Diaphoresis, Palpitations or Syncope
Abdomen/GI: Denies Abdominal Pain, Nausea, Vomiting or Diarrhea
: Denies Dysuria, Frequency or Urgency
Musculoskeletal: Denies Joint Pain
Skin: Reports Other (worsening RLE wound with increased discharge and erythema )
Neurological: Denies Dizzy, Headache, Weakness or Numbness
Hematologic/Lymphatic: Denies Bleeding
Physical Exam
Vital Signs
Vital Signs
Temp Pulse Resp BP Pulse Ox
98.3 F 117 19 112/59 95
11/26/24 14:17 11/26/24 15:30 11/26/24 15:30 11/26/24 15:00 11/26/24 15:30
Physical Exam
General: Well Developed, Well Nourished, No Apparent Distress, Conversant and Obese
HEENT: NormoCephalic, Moist mucous membranes, PERRLA, Nose Appears Normal and Ears Appear Normal
Respiratory: Clear and Non Labored Respirations
Cardiac: S1/S2, Regular Rhythm and Tachycardia; No Murmur, Rub or Gallop
GI: Soft, Non Tender, Non Distended and Normal Bowel Sounds
Musculoskeletal: No Clubbing, No Cyanosis and Other (LLE AKA )
Skin: Warm, IV/Catheter Site and Other (RLE with excoriation, multiple ulcerations, erythema and edema, tender to touch)
Neuro: Awake and AO x 3
Hematologic/Lymphatic: No Lymphadenopathy
Psych: Calm
Laboratory Results
-
11/26/24 14:26
11/26/24 14:26
Laboratory Results
Total Bilirubin 0.4 mg/dl (0.2-1.3) 11/26/24 14:26
AST 18 U/L (14-36) 11/26/24 14:26
ALT 15 U/L (0-35) 11/26/24 14:26
Alkaline Phosphatase 80 U/L (38-126) 11/26/24 14:26
Data Reviewed
-
Lab Data: Labs Reviewed by me (hgb 8.6, hct 29.0, Na+ 129, Ca 8.3 corrected to 9.3)
Impression/Plan
-
IMPRESSION/PLAN:
#RLE cellulitis
#chronic venous insufficiency with right lower extremity wound
hgb 8.6, hct 29.0
- Admit to med/surg
- Consult ID
- IV Avycaz q8
- Wound care
- supportive care
#hyponatremic
Na+ 129
- IVF
- trend BMP
#anemia
hgb 8.6, hct 29.0
no s/s of bleeding, patient denies any bleeding
- iron studies pending
- monitor CBC
#hypertension
- continue metoprolol
#hyperlipidemia
- continue atorvastatin
#paroxysmal atrial fibrillation
- continue Eliquis and metoprolol
#chronic HFpEF
- daily weights
- I & Os
- continue bumetanide PRN
#restless leg syndrome
- continue ropinirole
#neuropathy
- continue pregabalin
#GERD
- continue omeprazole
Code status: full code
DVT prophlyaxis: Eliquis
[2024-11-26] MEDS: NSS 500 IV (16:11)
[2024-11-26] MEDS: REQUIP 4 MG PO ×2 (16:55→21:53)
--- NOTE | 2024-11-26 16:56 | W.PN.UPDATE ---
Update Note
Progress Note Update
This is an addendum to H&P written by by POULTRY FIELD SERVICE TECHNICIAN Alyson Perdomo
I saw and examined the patient.
The POULTRY FIELD SERVICE TECHNICIAN's note was reviewed and I agree with the note.
Comment:
Ms. Abi Thompson is a 84 yo woman with hx atrial fibrillation, hx PE/DVT, essential HTN, HLD, anemia chronic disease, RG, asthma, obesity, left AKA, admission 09/2024 for sepsis secondary to RLE cellulitis in setting of chronic RLE venous stasis
wounds with lymphedema (treated with IV Avycaz, hx multiple drug allergies) presents to ER after recommendation of visiting nurse given appearance of wound and concern for low blood pressure.
Triage VS: T 36.8 C, P 119, RR 16, BP 108/59, SpO2 93%
On exam patient is AAO x 3; RLE with chronic wound with areas of ulceration and surrounding erythema; left AKA
LABS: WBC 10.6, Hg 8.6, PLT 335, Na 129, K+ 4.9, CO2 27, BUN 16, Cr 0.6, Glucose 220, Lactate 1.8, liver enzymes WNL
RLE Cellulitis
Chronic Venous Stasis Wounds
Hx multi-drug resistant Pseudomonas
-admit to med/surg
-appreciate ID consult
-continue IV Avycaz
Hyponatremia
-s/p fluids in ER
-free water restriction
-consider dose of Bumex tomorrow (patient takes as needed)
HFpEF
-patient takes Bumex as needed
-hold in setting of infection, but consider giving a dose tomorrow if sodium remains low
Acute on Chronic Anemia
-no e/o blake bleeding
-follow up iron studies
GERD - FIELD ARTILLERY OFFICER PPI
RLS - FIELD ARTILLERY OFFICER Ropinirole
Atrial Fibrillation - FIELD ARTILLERY OFFICER Eliquis, Metoprolol
Remainder of plan per POULTRY FIELD SERVICE TECHNICIAN note
76 minutes spent on patient care
[2024-11-26] MEDS: DILAUDID 0.5 MG IV (17:15)
[2024-11-26 18:44] LABS: Ferritin 25.0 ng/ml (11.1-264.0); Iron 23 ug/dl (37-170)
[2024-11-26 18:53] LABS: Total Iron Binding Capacity 284 ug/dl (265-497)
[2024-11-26 18:59] LABS: Vitamin B12 735 pg/ml (239-931)
[2024-11-26] MEDS: TOPROL XL 25 MG PO (21:50)
[2024-11-26] MEDS: ELIQUIS 5 MG PO (21:52)
[2024-11-26] MEDS: LIPITOR 40 MG PO (21:52)
[2024-11-26] MEDS: ULTRAM 50 MG PO (21:53)
[2024-11-26] MEDS: TYLENOL 650 MG PO (21:54)
[2024-11-27] VITALS (22 sets, daily range): BP systolic 97–125; BP diastolic 53–85; PULSE 105; O2SAT 97
[2024-11-27] MEDS: ULTRAM 50 MG PO ×3 (02:50→20:24)
[2024-11-27 06:00] LABS: Hematocrit 25.5 % (37.0-47.0); Hemoglobin 7.4 g/dL (12.0-16.0); Mean Corp Hgb Conc. 29.0 g/dL (33.0-37.0); Mean Corpuscular Volume 78.2 fL (81.0-99.0); Platelet Count 299 10^3/uL (130-400); Red Cell Dist. Width 17.0 % (11.5-14.5)
[2024-11-27 06:25] LABS: Blood Urea Nitrogen 11 mg/dl (7-17); Calcium 7.5 mg/dl (8.4-10.2); Carbon Dioxide 29 mmol/L (22-30); Chloride 101 mmol/L (98-107); Estimated Creatinine Clearance 68 ml/min; Glucose 117 mg/dl (70-99); Potassium 4.4 mmol/L (3.5-5.1); Sodium 130 mmol/L (135-145); eGFR > 60.00
[2024-11-27 07:45] LABS: Hematocrit 26.9 % (37.0-47.0); Hemoglobin 7.8 g/dL (12.0-16.0)
[2024-11-27] MEDS: REQUIP 4 MG PO ×3 (08:11→21:29)
[2024-11-27] MEDS: PROTONIX 40 MG PO (08:11)
[2024-11-27] MEDS: LYRICA 150 MG PO ×2 (08:11→20:25)
[2024-11-27] MEDS: ELIQUIS 5 MG PO ×2 (08:12→20:24)
--- NOTE | 2024-11-27 09:12 | CM ---
Patient seen at bedside in ED. Patient states that she lives with her and labor and delivery registered nurse, Destiny. Patient home is 2 story. Patient had battery powered chair/wheelchair. Patient has wound care clinic doctor and nursing coming to home.
Patient is the caregiver for her . Patient PCP is Dr. Ashton and she uses the [facility] in [place]. Patient plan is to return home with her caregiver and VN from [facility]. Patient has been in [facility] several times and does not wish to return. Patient
acknowledges that she is also caregiving for her . CM will continue to follow for discharge planning needs.
PLan; home with VN vs SNF; Pending medical treatment plan; will need referral for [facility]
--- NOTE | 2024-11-27 09:51 | W.PN.HOSP.TC ---
Addendum entered and electronically signed by Rahul Hernandez MD 11/27/24 12:46:
Attending�addendum:
I saw and evaluated the patient. I reviewed the resident�s note and agree with findings and plan as documented in the resident�s note.��patient seen and examined at bedside, denies any chest pain or shortness of breath, no abdominal pain, no nausea,
no vomiting, no diarrhea or constipation.
Complaining of right lower extremity pain.
Physical�exam:
GENERAL : Patient is awake, alert, oriented x3
HEENT: Nonicteric sclerae, PERRLA, EOMI. Oropharynx clear. Moist mucous membranes. Conjunctivae appear well perfused.
CHEST: Chest wall is nontender.
HEART: Regular rate and rhythm without murmurs.
LUNGS: Clear to auscultation bilaterally.
ABDOMEN: Soft, positive bowel sounds, nontender, no organomegaly.
RECTAL: Deferred.
MUSCLES/EXTREMITIES: Swelling, redness right lower extremity. Left AKA.
NEUROLOGIC: Cranial nerves II-XII intact without motor/sensory deficit.
�
Assessment/plan:
Sepsis secondary to right lower extremity cellulitis.
Patient meets sepsis criteria admission.
Appreciate infectious's input.
Continue antibiotic in form of Avycaz
Pain control.
Hyponatremia.
Improved
Anemia.
Monitor H&H and transfuse if needed
Chronic CHF.
Continue Bumex
CODE STATUS: Full code.
DVT prophylaxis: Eliquis
Diet: Cardiac diet.
Disposition: Continue antibiotic.
�
Total time spent on today�s encounter was 55 minutes which included time spent in counseling the patient/family regarding diagnosis and treatment plan as listed above, goals of care, and symptom management. Case was discussed with nursing staff,
specialists, and care coordinators/case management. All labs and imaging personally reviewed by me. Remainder the time spent in detailed review of previous records, lab data, imaging, and other medical provider documentation.
Original Note:
Today's Communication/Plan
-
continue IV Avycaz q8
continue pain meds, Tylenol and tramadol
Assessment / Plan
Assessment / Plan
Patient is a 84-year-old female with past medical history significant for hypertension, hyperlipidemia, paroxysmal atrial fibrillation, chronic HFpEF, chronic venous insufficiency with right lower extremity wound, restless leg syndrome, neuropathy
and GERD who presented to [facility] ED via EMS from home at recommendation of visiting nurse for evaluation of hypotension and tachycardia. Patient with hospitalization in September 2024 for sepsis 2/2 RLE wound cellulitis and has been receiving home care
since for monitoring and wound care. Visiting nurse today expressed concern for tachycardia and hypotension and recommended patient cme to ED for evaluation so EMS was called. Patient reports increased pain to the RLE recently managed with PRN
Tylenol and PRN tramadol.
#Sepsis likely secondary to RLE cellulitis (101.3, HR 119 RR25)
-hX chronic venous insufficiency with right lower extremity wound
- Admit to med/surg
- Consult ID
- IV Avycaz q8
- Wound care
- supportive care
- Pain meds with Tylenol , Tramadol
#hyponatremic
Na+ 129--130
- IVF
- trend BMP
#anemia
hgb 8.6--7.4--7.8 hct 29.0
-hX of bleeding hemorrhoid , on Eliquis
- iron studies pending
- monitor h and h
#hypertension
- continue metoprolol
#hyperlipidemia
- continue atorvastatin
#paroxysmal atrial fibrillation
- continue Eliquis and metoprolol
#chronic HFpEF
- daily weights
- I & Os
- continue bumetanide PRN
#restless leg syndrome
- continue ropinirole
#neuropathy
- continue pregabalin
#GERD
- continue omeprazole
Code status: full code
DVT prophlyaxis: Eliquis
Anticipated Discharge: > 48 hours
Subjective/Interval History
-
Date of Service: November 27, 2024
Patient has pain in her right lower leg, stated that she has a hemorriod that bleeds sometimes alot but recntlly has gotten less. Denied nausea, vomiting or abd pain.
Objective Data
-
Labs:
Laboratory Results
11/27/24 11/27/24
05:40 07:38
WBC 9.4
Hgb 7.4 L 7.8 L
Hct 25.5 L 26.9 L
Plt Count 299
Sodium 130 L
Potassium 4.4
Chloride 101
Carbon Dioxide 29
BUN 11
Creatinine 0.5 L
Glucose 117 H
Calcium 7.5 L
Vital Signs:
Vital Signs
Temp Pulse Resp BP Pulse Ox
98.5 F 110 26 113/56 95
11/27/24 07:20 11/27/24 06:00 11/27/24 06:00 11/27/24 07:20 11/27/24 07:20
Review of Systems
-
History Source: Patient
Respiratory: Reports No Symptoms
Cardiac: Reports No Symptoms
Abdomen/GI: Reports Bloody Stools
Genitourinary: Reports No Symptoms
Skin: Reports Other (right lower leg wound dressing )
Neuro: Reports No Symptoms
Physical Exam
-
General: Appears in Distress (pain in right lower leg)
HEENT: Normocephalic and Atraumatic
Respiratory: Clear to Auscultation
Cardiac: Regular Rhythm and S1/S2
GI: Soft and Nontender
Musculoskeletal: No Edema and Other (left AKA)
Skin: Warm and Dry
Neuro: Awake, Alert and Oriented
--- NOTE | 2024-11-27 10:17 | CON.ID ---
Consultation
-
Date/Time Consultation Requested: 11/26/20242113
Date/Time Consultation Performed: 11/27/2024 0945
Requesting Provider: Alyson Perdomo
Performing Provider: Dr. Mckee
Reason for Consultation: Recurrent right lower extremity cellulitis
Chief Complaint / Past History
Chief Complaint
Chest pain
History of Present Illness
Abi Thompson is an 84-year-old female with a significant past medical history of longstanding right lower extremity lymphedema being evaluated at the request of Alyson Perdomo regarding recurrence of right lower extremity cellulitis. History is
obtained from chart review along with patient interview.
The patient is well-known to the Infectious Diseases service, having been seen on multiple prior admissions to the hospital, as well as having been seen in the outpatient setting. She was last admitted to [facility] and September, at which
time she was treated for right lower extremity wounds, cellulitis and an exacerbation of lower extremity venous stasis.
She presents back to the hospital yesterday secondary to worsening right lower extremity pain. Per review notes, the visiting nurse had been out to the house and noted that the patient was tachycardic and had hypotension. EMS was called. Patient
denies any fevers or chills, cough or shortness of breath. She notes noncompliance with lower extremity compressive modalities previously recommended for control of lymphedema. Today she notes some darkening of several of the wounds since
admission.
Past History
Additional Past Medical History:
Hx CVA/TIA
HTN
DVT/PE
Afib
HFpEF
hypothyroidism
partial thyroidectomy
Right LE chronic venous stasis wounds, colonized with MDR-Pseudomonas
BMI 38
L TKR
R shoulder replacement
endometriosis s/p hysterectomy, colon resection
L AKA
cervical and lumbar fusion
Restless leg syndrome
Allergy History:
adhesive (Adhesive) Allergy (Verified 11/26/24 14:22)
Itching/REDNESS
Aminoglycosides Allergy (Verified 11/26/24 17:10)
Unknown
azithromycin (Azithromycin) Allergy (Verified 11/26/24 14:22)
patient denies
celecoxib (From Celebrex) Allergy (Verified 11/26/24 14:22)
started to break out with sores
ciprofloxacin (From Cipro) Allergy (Verified 11/26/24 14:22)
dizziness
doxycycline Allergy (Verified 11/26/24 14:22)
Unknown
erythromycin base Allergy (Verified 11/26/24 14:22)
CHEST PAIN
furosemide (From Lasix) Allergy (Verified 11/26/24 14:22)
'just doesn't feel good' - takes bumetanide at home 09/04/23
kanamycin Allergy (Verified 11/26/24 14:22)
Unknown
latex Allergy (Verified 11/26/24 14:22)
Rash
Medications Reviewed: Yes
Current Antibiotics:
Ceftazidime/avibactam
Social History
Tobacco: Non-Smoker
Alcohol: None
Drug: None
Personal:
Family History
Family History: Not Pertinent
Review of Systems
Vital Signs
Temp Pulse Resp BP Pulse Ox
98.5 F 110 26 113/56 95
11/27/24 07:20 11/27/24 06:00 11/27/24 06:00 11/27/24 07:20 11/27/24 07:20
Physical Exam
Physical Exam
Constitutional: No Acute Distress, Comfortable, Chronically Ill, Non-toxic and Obese
Eyes: Pupils Equal, No Conjunctival Hemorrhage and Sclera Anicteric; Negative Pupils Round
Cardiovascular: Irregular Rate (tachycardic) and S1/S2; Negative S3/S4
Pulmonary: Clear
Gastrointestinal: Soft, Non Tender and Non Distended
Extremities: Erythema (RLE); Negative Edema (RLE)
Wound: Other (Multiple superficial venous stasis wounds noted on distal right lower extremity. See photos in wound care.)
Neurological: AO x 3
.
Lab / Diagnostic Study Results
11/27/24 07:38
11/27/24 05:40
Abs Immat Gran (auto) 0.1 10^3/uL (0-0.05) H 11/26/24 14:26
Absolute Neuts (auto) 8.8 10^3/uL (1.4-6.5) H 11/26/24 14:26
Absolute Lymphs (auto) 1.0 10^3/uL (1.2-3.4) L 11/26/24 14:26
Absolute Monos (auto) 0.7 10^3/uL (0.1-0.6) H 11/26/24 14:26
Absolute Basos (auto) 0.0 10^3/uL (0-0.2) 11/26/24 14:26
Immature Gran % 0.9 % (0-0.5) H 11/26/24 14:26
Neutrophils % 82.5 % (42.2-75.2) H 11/26/24 14:26
Lymphocytes % 9.5 % (20.5-51.1) L 11/26/24 14:26
Monocytes % 6.3 % (1.7-9.3) 11/26/24 14:26
Eosinophils % 0.5 % (0-6) 11/26/24 14:26
Basophils % 0.3 % (0-2) 11/26/24 14:26
Lactic Acid Cancelled 11/26/24 19:45
Microbiology Results
Micro:
11/26/24 15:57 Wound Culture - Pending
Leg - Right Gram Stain - Preliminary
11/26/24 15:57 Blood Culture - Pending
Blood/Venous
11/26/24 15:49 Blood Culture - Pending
Blood/Venous
09/12/[address]: No evidence of pulmonary embolism or thoracic aortic dissection. Mild bibasilar subsegmental atelectasis, otherwise clear lungs.
Assessment / Plan
Right lower extremity venous stasis wounds
Hx MDR-Pseudomonas
Fever
Right lower extremity pain
Hx CVA/TIA
HTN
Hx DVT/PE
Afib
HFpEF
hypothyroidism
Obesity: BMI 38
Restless leg syndrome
Recommendations:
Continue with Avycaz for the present while wound cultures pending.
Discussed case with wound care. Continue with Vashe as it has antipseudomonal properties and will decrease overall bioburden, along with general local wound care
Lower extremity compressive modalities (Jeovanny) to decrease edema.
Continue with lower extremity elevation.
Follow for improvement.
Abi currently is having significant morbidity from her leg and I discussed with her her feelings regarding ongoing therapy in the treatment of the leg. Unfortunately, there is little that the medical profession can do for the leg other than
compressive modalities and elevation. Additionally, she develops significant discomfort with long periods of compression causing her to not be compliant, which leads to increased swelling, increased wound size and the development of wound
colonization and infection. At this point in time she is not at the point where she would want to undergo a BKA given that her mobility would be severely diminished, and she feels that this would be too great of a burden on her and family.
Care Review
Plan reviewed with: Nurse (Wound Care)
--- NOTE | 2024-11-27 10:44 | WOUNDNOTE ---
[facility] RN note: Patient admitted with right LE chronic wound
See H&P for complete history.
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
Wound Location and type/assessment: Patient admitted with chronic venous ulcers to right LE and right dorsal foot. Leg wound covers the circumference of the leg and ranges from foot to mid calf (see worklist for measurements and descriptions).
Deeper, necrotic areas of yellow slough and black/brown eschar are noted. No odor, moderate to large amounts of serous drainage. Reviewed pics from [facility] on 11/09 and wound exhibit increased necrotic appearing areas. Patient reports she has not been
adherent with compression. She reports pain 09/21, which she explained is her baseline. She has a lives in caregiver for her and her . Patient said she has discharged herself from [facility] and is now getting wound care at home. Consulted with
Rylee who was present during assessment. Patient turns in bed with assistance and sacrum is intact. Right heel intact.
Appetite: Fair
Pressure redistribution devices in place: Static air overlay added to bed, patient could not tolerate side laying position. Instructed patient on importance of off-loading and repositioning for PI prevention. Right leg off-loaded with pillow under
calf.
Plan: Local wound care provided as ordered to right leg and right dorsal foot and Vashe moistened gauze. Patient tolerated wound care well. Orders confirmed. DOMINGO Urrutia assisted with wound care, JANEY Stroud updated on plan. Orders for wound care
confirmed with hospitalist. Will follow as needed.
Note to case management of equipment requested for discharge:
Recommend follow up at wound care center upon discharge.
--- NOTE | 2024-11-27 10:56 | WOUNDNOTE ---
RIGHT MEDIAL LEG
--- NOTE | 2024-11-27 10:57 | WOUNDNOTE ---
RIGHT DORSAL FOOT
--- NOTE | 2024-11-27 10:57 | WOUNDNOTE ---
RIGHT LATERAL LEG
--- NOTE | 2024-11-27 10:58 | WOUNDNOTE ---
RIGHT LATERAL/POSTERIOR LEG
[2024-11-27] MEDS: TYLENOL 650 MG PO (21:27)
[2024-11-27] MEDS: LIPITOR 40 MG PO (21:28)
[2024-11-27] MEDS: TOPROL XL 25 MG PO (21:31)
[2024-11-28] MEDS: ULTRAM 50 MG PO ×2 (06:05→14:07)
[2024-11-28] MEDS: TYLENOL 650 MG PO ×2 (06:24→14:06)
[2024-11-28 06:50] LABS: ALT (SGPT) 14 U/L (0-35); AST (SGOT) 19 U/L (14-36); Albumin 2.4 g/dl (3.5-5.0); Alkaline Phosphatase 85 U/L (38-126); Blood Urea Nitrogen 11 mg/dl (7-17); Calcium 7.7 mg/dl (8.4-10.2); Carbon Dioxide 30 mmol/L (22-30); Chloride 99 mmol/L (98-107); Estimated Creatinine Clearance 68 ml/min; Glucose 124 mg/dl (70-99); Potassium 4.4 mmol/L (3.5-5.1); Sodium 132 mmol/L (135-145); Total Protein 5.2 g/dl (6.3-8.2); eGFR > 60.00
[2024-11-28 07:33] LABS: Hematocrit 28.4 % (37.0-47.0); Hemoglobin 8.1 g/dL (12.0-16.0); Mean Corp Hgb Conc. 28.5 g/dL (33.0-37.0); Mean Corpuscular Volume 82.1 fL (81.0-99.0); Nucleated Red Blood Cells % 0 %; Platelet Count 323 10^3/uL (130-400); Red Cell Dist. Width 17.0 % (11.5-14.5)
[2024-11-28 07:35] VITALS: BP 93/45
[2024-11-28] MEDS: ELIQUIS 5 MG PO ×2 (08:08→19:30)
[2024-11-28] MEDS: PROTONIX 40 MG PO (08:08)
[2024-11-28] MEDS: LYRICA 150 MG PO ×2 (08:08→19:31)
[2024-11-28] MEDS: REQUIP 4 MG PO ×3 (08:08→21:07)
--- NOTE | 2024-11-28 09:46 | W.PN.HOSP.TC ---
Addendum entered and electronically signed by Rahul Hernandez MD 11/28/24 11:59:
Attending�addendum:
I saw and evaluated the patient. I reviewed the resident�s note and agree with findings and plan as documented in the resident�s note.��patient seen and examined at bedside, denies any chest pain or shortness of breath, mild cough, no abdominal
pain, no nausea, no vomiting, no diarrhea or constipation.
Improved right lower extremity pain.
Physical�exam:
GENERAL : Patient is awake, alert, oriented x3
HEENT: Nonicteric sclerae, PERRLA, EOMI. Oropharynx clear. Moist mucous membranes. Conjunctivae appear well perfused.
CHEST: Chest wall is nontender.
HEART: Regular rate and rhythm without murmurs.
LUNGS: Clear to auscultation bilaterally.
ABDOMEN: Soft, positive bowel sounds, nontender, no organomegaly.
RECTAL: Deferred.
MUSCLES/EXTREMITIES: Swelling, redness right lower extremity. Left AKA.
NEUROLOGIC: Cranial nerves II-XII intact without motor/sensory deficit.
�
Assessment/plan:
Sepsis secondary to right lower extremity cellulitis.
Patient meets sepsis criteria admission.
Appreciate infectious disease input.
Continue antibiotic in form of Avycaz for now
Pain control.
Hyponatremia.
Improved
Anemia.
Hemoglobin stable
Chronic CHF.
Continue Bumex
CODE STATUS: Full code.
DVT prophylaxis: Eliquis
Diet: Cardiac diet.
Disposition: Continue antibiotic.
�
Total time spent on today�s encounter was 55 minutes which included time spent in counseling the patient/family regarding diagnosis and treatment plan as listed above, goals of care, and symptom management. Case was discussed with nursing staff,
specialists, and care coordinators/case management. All labs and imaging personally reviewed by me. Remainder the time spent in detailed review of previous records, lab data, imaging, and other medical provider documentation.
Original Note:
Today's Communication/Plan
-
Continue with Avycaz , Wound culture showed growth of Pseudomonas and Streptococcus
per ID recs, If there is improvement with the reapplication of compressive dressings, can likely discontinue further antibiotics.
Continue with Vashe as it has antipseudomonal properties
continue wound care
Assessment / Plan
Assessment / Plan
Patient is a 84-year-old female with past medical history significant for hypertension, hyperlipidemia, paroxysmal atrial fibrillation, chronic HFpEF, chronic venous insufficiency with right lower extremity wound, restless leg syndrome, neuropathy
and GERD who presented to [facility] ED via EMS from home at recommendation of visiting nurse for evaluation of hypotension and tachycardia. Patient with hospitalization in September 2024 for sepsis 2/2 RLE wound cellulitis and has been receiving home care
since for monitoring and wound care. Visiting nurse today expressed concern for tachycardia and hypotension and recommended patient cme to ED for evaluation so EMS was called. Patient reports increased pain to the RLE recently managed with PRN
Tylenol and PRN tramadol.
#Sepsis likely secondary to RLE cellulitis (101.3, HR 119 RR25)
-hX chronic venous insufficiency with right lower extremity wound
- Admit to med/surg
- Consult ID
- IV Avycaz q8
- Continue with Vashe as it has antipseudomonal properties and will decrease overall bioburden
- Wound care
- supportive care, Lower extremity compressive modalities (Jeovanny) to decrease edema.
- Pain meds with Tylenol plus Tramadol
- Wound culture showed growth of Pseudomonas and Streptococcus
#Cough
- clear lung per auscultation
-Robitussin started
#hyponatremic
Na+ 129--130
- IVF
- trend BMP
#anemia
hgb 8.6--7.4--7.8 hct 29.0
-hX of bleeding hemorrhoid , on Eliquis
- iron studies pending
- monitor h and h
#hypertension
- continue metoprolol
#hyperlipidemia
- continue atorvastatin
#paroxysmal atrial fibrillation
- continue Eliquis and metoprolol
#chronic HFpEF
- daily weights
- I & Os
- continue bumetanide PRN
#restless leg syndrome
- continue ropinirole
#neuropathy
- continue pregabalin
#GERD
- continue omeprazole
Code status: full code
DVT prophlyaxis: Eliquis
Anticipated Discharge: 24 - 48 hours
Subjective/Interval History
-
Date of Service: November 28, 2024
Patient has less pain in her right leg than yesterday , has soreness in Right lower leg and abdominal bloating. Denied fever, chills, nausea , vomiting, abd pain.
Objective Data
-
Labs:
Laboratory Results
11/28/24
05:40
WBC 8.0
Hgb 8.1 L
Hct 28.4 L
Plt Count 323
Sodium 132 L
Potassium 4.4
Chloride 99
Carbon Dioxide 30
BUN 11
Creatinine 0.5 L
Glucose 124 H
Calcium 7.7 L
Total Bilirubin 0.4
AST 19
ALT 14
Alkaline Phosphatase 85
Vital Signs:
Vital Signs
Temp Pulse Resp BP Pulse Ox
97.6 F 81 17 93/45 95
11/28/24 07:35 11/28/24 07:35 11/28/24 07:35 11/28/24 07:35 11/28/24 07:35
I&O
11/27/24 11/28/24 11/29/24
06:59 06:59 06:59
Intake Total 480 / 480
Output Total 200 / 200
Balance 280 / 280
Review of Systems
-
History Source: Patient
Respiratory: Reports Cough
Cardiac: Reports No Symptoms
Abdomen/GI: Reports Bloated
Genitourinary: Reports No Symptoms
Musculoskeletal: Reports Other (Right lower leg soreness)
Skin: Reports Other (right lower leg wound dressing )
Neuro: Reports No Symptoms
Physical Exam
-
General: Comfortable
HEENT: Normocephalic and Atraumatic
Respiratory: Clear to Auscultation
Cardiac: Regular Rhythm and S1/S2
GI: Soft and Nontender
Musculoskeletal: No Edema and Other (left AKA, Right lower leg )
Skin: Warm and Dry
Neuro: Awake, Alert and Oriented
--- NOTE | 2024-11-28 11:28 | W.PN.ID1 ---
Date of Service
Date of Service: November 28, 2024
Today's Communication
Continue antibiotics. Will await dressing change.
Assessment / Plan
Right lower extremity venous stasis wounds
Hx MDR-Pseudomonas
Fever
Right lower extremity pain
Hx CVA/TIA
HTN
Hx DVT/PE
Afib
HFpEF
hypothyroidism
Obesity: BMI 38
Restless leg syndrome
Recommendations:
Continue with Avycaz for the present while wound cultures pending.
Discussed case with wound care. Continue with Vashe as it has antipseudomonal properties and will decrease overall bioburden, along with general local wound care
Lower extremity compressive modalities (Jeovanny) to decrease edema.
Continue with lower extremity elevation.
Will examine the left leg at next dressing change. Wound cultures noted, with growth of Pseudomonas and Streptococcus, as would be expected from a superficial wound culture of a chronic wound.
If there is improvement with the reapplication of compressive dressings, can likely discontinue further antibiotics.
Will need ongoing care with wound washing with Vashe to decrease bioburden.
Patient needs to be compliant with compressive modalities as this is the only thing that will help heal the wounds.
Chief Complaint
-: Other (Right lower extremity wounds)
Subjective / Review of Systems
Patient seen and examined. No significant issues overnight. Patient in chair and right leg is dressed in Jeovanny wrap's
Review of Systems: No Fever and No Chills
Vital Signs / Physical Exam
Vital Signs
Vital Signs
Temp Pulse Resp BP Pulse Ox
97.6 F 81 17 93/45 95
11/28/24 07:35 11/28/24 07:35 11/28/24 07:35 11/28/24 07:35 11/28/24 07:35
Physical Exam
Constitutional: No Acute Distress, Comfortable, Chronically Ill, Non-toxic and Obese
Pulmonary: Non Labored
Gastrointestinal: Non Distended
Extremities: Other (Right leg dressed in Jeovanny wrap.)
Musculoskeletal: Other (Left AKA)
Neurological: Awake and Alert
Psychological: Calm
Objective Data
Lab Data
Lab Results
11/28/24 05:40
11/28/24 05:40
Estimated Creat Clear 68 ml/min 11/28/24 05:40
Lactic Acid Cancelled 11/26/24 19:45
Total Bilirubin 0.4 mg/dl (0.2-1.3) 11/28/24 05:40
AST 19 U/L (14-36) 11/28/24 05:40
ALT 14 U/L (0-35) 11/28/24 05:40
Alkaline Phosphatase 85 U/L (38-126) 11/28/24 05:40
Most recent labs reviewed.
Micro Results:
11/26/24 15:57 Wound Culture - Preliminary
Leg - Right Pseudomonas aeruginosa
Streptococcus agalactiae
Gram Stain - Preliminary
11/26/24 15:57 Blood Culture - Preliminary
Blood/Venous No Growth in 24 hours- Final report to follow
11/26/24 15:49 Blood Culture - Preliminary
Blood/Venous No Growth in 24 hours- Final report to follow
09/12/[address]: No evidence of pulmonary embolism or thoracic aortic dissection. Mild bibasilar subsegmental atelectasis, otherwise clear lungs.
Care Review
Plan reviewed with: Nurse
--- NOTE | 2024-11-28 12:44 | WOUNDNOTE ---
[facility] RN NOTE: TT received from Dr. Mckee regarding bleeding with dressing removal. Visited patient and spoke to RN Avni. Wound is friable after dressing removal and bleeding is moderate (patient is on Eliquis). Wound care provided by this RN with 2
layers of adaptic, ABD, kathi and FRENCH. Will update orders. Wound should continue to be cleaned with Vashe. Patient agreeable to plan. Will follow as needed.
[2024-11-28 15:35] VITALS: BP 117/87
--- NOTE | 2024-11-28 16:23 | CM ---
Spoke with patient she requested resumption of [facility] at discharge.
Pt has wound .
Destiny is her personal care aid.
[facility] referral placed
[facility] with [facility] fax [phone]
[2024-11-28] MEDS: LIPITOR 40 MG PO (21:08)
[2024-11-28] MEDS: TOPROL XL 25 MG PO (21:08)
[2024-11-28 23:00] VITALS: BP 116/68
[2024-11-29 06:01] LABS: Hematocrit 27.3 % (37.0-47.0); Hemoglobin 7.9 g/dL (12.0-16.0); Mean Corp Hgb Conc. 28.9 g/dL (33.0-37.0); Mean Corpuscular Volume 77.6 fL (81.0-99.0); Nucleated Red Blood Cells % 0 %; Platelet Count 321 10^3/uL (130-400); Red Cell Dist. Width 16.6 % (11.5-14.5)
[2024-11-29 06:18] LABS: ALT (SGPT) 15 U/L (0-35); AST (SGOT) 18 U/L (14-36); Albumin 2.5 g/dl (3.5-5.0); Alkaline Phosphatase 81 U/L (38-126); Blood Urea Nitrogen 9 mg/dl (7-17); Calcium 7.8 mg/dl (8.4-10.2); Carbon Dioxide 30 mmol/L (22-30); Chloride 98 mmol/L (98-107); Estimated Creatinine Clearance 68 ml/min; Glucose 131 mg/dl (70-99); Potassium 4.6 mmol/L (3.5-5.1); Sodium 131 mmol/L (135-145); Total Protein 5.2 g/dl (6.3-8.2); eGFR > 60.00
[2024-11-29 08:06] VITALS: BP 122/55
[2024-11-29] MEDS: ELIQUIS 5 MG PO ×2 (08:39→19:42)
[2024-11-29] MEDS: PROTONIX 40 MG PO (08:39)
[2024-11-29] MEDS: LYRICA 150 MG PO ×2 (08:39→19:42)
[2024-11-29] MEDS: REQUIP 4 MG PO ×3 (08:39→21:01)
[2024-11-29] MEDS: DULCOLAX 5 MG PO (09:59)
--- NOTE | 2024-11-29 10:18 | W.PN.HOSP.TC ---
Addendum entered and electronically signed by Rahul Hernandez MD 11/29/24 14:18:
Attending�addendum:
I saw and evaluated the patient. I reviewed the resident�s note and agree with findings and plan as documented in the resident�s note.��patient seen and examined at bedside, denies any chest pain or shortness of breath, mild cough, no abdominal
pain, no nausea, no vomiting, no diarrhea or constipation.
Improved right lower extremity pain.
Physical�exam:
GENERAL : Patient is awake, alert, oriented x3
HEENT: Nonicteric sclerae, PERRLA, EOMI. Oropharynx clear. Moist mucous membranes. Conjunctivae appear well perfused.
CHEST: Chest wall is nontender.
HEART: Regular rate and rhythm without murmurs.
LUNGS: Clear to auscultation bilaterally.
ABDOMEN: Soft, positive bowel sounds, nontender, no organomegaly.
RECTAL: Deferred.
MUSCLES/EXTREMITIES: Swelling, redness right lower extremity. Left AKA.
NEUROLOGIC: Cranial nerves II-XII intact without motor/sensory deficit.
�
Assessment/plan:
Sepsis secondary to right lower extremity cellulitis.
Patient meets sepsis criteria admission.
Appreciate infectious disease input.
Continue antibiotic in form of Avycaz for now
Pain control.
Hyponatremia.
Improved
Anemia.
Hemoglobin stable
Chronic CHF.
Continue Bumex
CODE STATUS: Full code.
DVT prophylaxis: Eliquis
Diet: Cardiac diet.
Disposition: Continue antibiotic.
�
Total time spent on today�s encounter was 55 minutes which included time spent in counseling the patient/family regarding diagnosis and treatment plan as listed above, goals of care, and symptom management. Case was discussed with nursing staff,
specialists, and care coordinators/case management. All labs and imaging personally reviewed by me. Remainder the time spent in detailed review of previous records, lab data, imaging, and other medical provider documentation.
Original Note:
Today's Communication/Plan
-
Continue antibiotics
Continue pain meds
Continue Wound care
Continue Lower extremity compressive modalities (Jeovanny) to decrease edema
follow ID recs
Assessment / Plan
Assessment / Plan
Patient is a 84-year-old female with past medical history significant for hypertension, hyperlipidemia, paroxysmal atrial fibrillation, chronic HFpEF, chronic venous insufficiency with right lower extremity wound, restless leg syndrome, neuropathy
and GERD who presented to [facility] ED via EMS from home at recommendation of visiting nurse for evaluation of hypotension and tachycardia. Patient with hospitalization in September 2024 for sepsis 2/2 RLE wound cellulitis and has been receiving home care
since for monitoring and wound care. Visiting nurse today expressed concern for tachycardia and hypotension and recommended patient cme to ED for evaluation so EMS was called. Patient admitted for sepsis secondary secondary to RLL cellulitis
patient stated has constipation that she was taking the Dulcolax over the counter chewable tablets
#Sepsis likely secondary to RLE cellulitis (101.3, HR 119 RR25)
-hX chronic venous insufficiency with right lower extremity wound
- Admit to med/surg
- appreciate ID recs
- IV Avycaz q8,
- Continue with Vashe as it has antipseudomonal properties and will decrease overall bioburden
- Wound care
- supportive care, Lower extremity compressive modalities (Jeovanny) to decrease edema.
- Pain meds with Tylenol plus Tramadol
- Wound culture showed growth of Pseudomonas and Streptococcus
#Constipation
-hx of constipation
-taking over the counter Dulcolax
-bowel regime added today and one Dulcolax suppositories
#Cough
- Improved
- clear lung per auscultation
-Robitussin started
#hyponatremic
- Na+ 129--130--131
- IVF
- trend BMP
#anemia
hgb 8.6--7.4--7.8--7.8 hct 29.0
-hX of bleeding hemorrhoid , on Eliquis
- iron studies consistent with iron deficiency anemia
- monitor h and h
#hypertension
- continue metoprolol
#hyperlipidemia
- continue atorvastatin
#paroxysmal atrial fibrillation
- continue Eliquis and metoprolol
#chronic HFpEF
- daily weights
- I & Os
- continue bumetanide PRN
#restless leg syndrome
- continue ropinirole
#neuropathy
- continue pregabalin
#GERD
- continue omeprazole
Code status: full code
DVT prophlyaxis: Eliquis
Anticipated Discharge: > 48 hours
Subjective/Interval History
-
Date of Service: November 29, 2024
Patient stated that her Right lower leg pain subsided and she has pain only when they change the dressing. She feels bloated and attributed that to the constipation. Her last hazel movement was yesterday and was small hard bullets shape. Denied
nausea, vomiting, abd pain, shortness of breath , chest pain, fever , chills. Her cough improved today.
Objective Data
-
Labs:
Laboratory Results
11/29/24
05:24
WBC 7.1
Hgb 7.9 L
Hct 27.3 L
Plt Count 321
Sodium 131 L
Potassium 4.6
Chloride 98
Carbon Dioxide 30
BUN 9
Creatinine 0.5 L
Glucose 131 H
Calcium 7.8 L
Total Bilirubin 0.4
AST 18
ALT 15
Alkaline Phosphatase 81
Vital Signs:
Vital Signs
Temp Pulse Resp BP Pulse Ox
98.9 F 96 17 122/55 97
11/29/24 08:06 11/29/24 08:06 11/29/24 08:06 11/29/24 08:06 11/29/24 08:06
I&O
11/28/24 11/29/24 11/30/24
06:59 06:59 06:59
Intake Total 480 / 480 180 / 180
Output Total 200 / 200
Balance 280 / 280 180 / 180
Review of Systems
-
History Source: Patient
Cardiac: Reports No Symptoms
Abdomen/GI: Reports Constipated and Bloated
Genitourinary: Reports No Symptoms
Musculoskeletal: Reports Other (Right lower leg soreness)
Skin: Reports Other (right lower leg wound dressing )
Neuro: Reports No Symptoms
Physical Exam
-
General: Comfortable
HEENT: Normocephalic and Atraumatic
Respiratory: Clear to Auscultation
Cardiac: Regular Rhythm and S1/S2
GI: Soft and Nontender
Musculoskeletal: No Edema and Other (left AKA, Right lower leg )
Skin: Warm and Dry
Neuro: Awake, Alert and Oriented
Psych: Calm
[2024-11-29] MEDS: ULTRAM 50 MG PO ×2 (12:45→17:25)
[2024-11-29] MEDS: TYLENOL 650 MG PO ×2 (12:46→17:25)
[2024-11-29 15:20] VITALS: BP 113/47
[2024-11-29] MEDS: DESENEX/MITRAZOL/ZEASORB 1 APPLIC TOPICAL (19:41)
[2024-11-29] MEDS: SENOKOT-S 1 TABLET PO (19:43)
[2024-11-29] MEDS: TOPROL XL 25 MG PO (21:00)
[2024-11-29] MEDS: LIPITOR 40 MG PO (21:00)
[2024-11-29 23:00] VITALS: BP 117/61
[2024-11-29 23:25] VITALS: BP 103/51
[2024-11-30] MEDS: ULTRAM 50 MG PO ×4 (03:10→22:23)
[2024-11-30] MEDS: TYLENOL 650 MG PO ×4 (03:11→22:22)
[2024-11-30 06:58] LABS: Hematocrit 27.1 % (37.0-47.0); Hemoglobin 7.6 g/dL (12.0-16.0); Mean Corp Hgb Conc. 28.0 g/dL (33.0-37.0); Mean Corpuscular Volume 80.2 fL (81.0-99.0); Nucleated Red Blood Cells % 0 %; Platelet Count 321 10^3/uL (130-400); Red Cell Dist. Width 16.7 % (11.5-14.5)
[2024-11-30 07:00] VITALS: BP 109/91
[2024-11-30 07:31] LABS: ALT (SGPT) 15 U/L (0-35); AST (SGOT) 18 U/L (14-36); Albumin 2.3 g/dl (3.5-5.0); Alkaline Phosphatase 72 U/L (38-126); Blood Urea Nitrogen 10 mg/dl (7-17); Calcium 7.9 mg/dl (8.4-10.2); Carbon Dioxide 30 mmol/L (22-30); Chloride 99 mmol/L (98-107); Estimated Creatinine Clearance 68 ml/min; Glucose 138 mg/dl (70-99); Potassium 4.4 mmol/L (3.5-5.1); Sodium 132 mmol/L (135-145); Total Protein 4.8 g/dl (6.3-8.2); eGFR > 60.00
[2024-11-30] MEDS: REQUIP 4 MG PO ×3 (07:38→21:19)
[2024-11-30] MEDS: SENOKOT-S 1 TABLET PO (07:38)
[2024-11-30] MEDS: PROTONIX 40 MG PO (07:38)
[2024-11-30] MEDS: MIRALAX 17 GRAMS PO (07:38)
[2024-11-30] MEDS: ELIQUIS 5 MG PO ×2 (07:38→21:19)
[2024-11-30] MEDS: LYRICA 150 MG PO ×2 (07:41→21:18)
[2024-11-30] MEDS: DESENEX/MITRAZOL/ZEASORB 1 APPLIC TOPICAL ×2 (07:42→21:20)
--- NOTE | 2024-11-30 11:02 | W.PN.HOSP.TC ---
Addendum entered and electronically signed by Rahul Hernandez MD 11/30/24 11:36:
Attending�addendum:
I saw and evaluated the patient. I reviewed the resident�s note and agree with findings and plan as documented in the resident�s note.��patient seen and examined at bedside, denies any chest pain or shortness of breath, mild cough, no abdominal
pain, no nausea, no vomiting, + constipation.
Improved right lower extremity pain.
Physical�exam:
GENERAL : Patient is awake, alert, oriented x3
HEENT: Nonicteric sclerae, PERRLA, EOMI. Oropharynx clear. Moist mucous membranes. Conjunctivae appear well perfused.
CHEST: Chest wall is nontender.
HEART: Regular rate and rhythm without murmurs.
LUNGS: Clear to auscultation bilaterally.
ABDOMEN: Soft, positive bowel sounds, nontender, no organomegaly.
RECTAL: Deferred.
MUSCLES/EXTREMITIES: Swelling, redness right lower extremity. Left AKA.
NEUROLOGIC: Cranial nerves II-XII intact without motor/sensory deficit.
�
Assessment/plan:
Sepsis secondary to right lower extremity cellulitis.
Patient meets sepsis criteria admission.
Appreciate infectious disease input.
Continue antibiotic in form of Avycaz for now
Pain control.
Hyponatremia.
Improved
Anemia.
Hemoglobin stable
Chronic CHF.
Continue Bumex
CODE STATUS: Full code.
DVT prophylaxis: Eliquis
Diet: Cardiac diet.
Disposition: Continue antibiotic.
�
Total time spent on today�s encounter was 50 minutes which included time spent in counseling the patient/family regarding diagnosis and treatment plan as listed above, goals of care, and symptom management. Case was discussed with nursing staff,
specialists, and care coordinators/case management. All labs and imaging personally reviewed by me. Remainder the time spent in detailed review of previous records, lab data, imaging, and other medical provider documentation
Original Note:
Today's Communication/Plan
-
ID consulted for recs
continue IV antibiotics
continue wound care
Assessment / Plan
Assessment / Plan
Patient is a 84-year-old female with past medical history significant for hypertension, hyperlipidemia, paroxysmal atrial fibrillation, chronic HFpEF, chronic venous insufficiency with right lower extremity wound, restless leg syndrome, neuropathy
and GERD who presented to [facility] ED via EMS from home at recommendation of visiting nurse for evaluation of hypotension and tachycardia. Patient with hospitalization in September 2024 for sepsis 2/2 RLE wound cellulitis and has been receiving home care
since for monitoring and wound care. Visiting nurse today expressed concern for tachycardia and hypotension and recommended patient cme to ED for evaluation so EMS was called. Patient admitted for sepsis secondary secondary to RLL cellulitis
patient stated has constipation that she was taking the Dulcolax over the counter chewable tablets
#Sepsis likely secondary to RLE cellulitis (101.3, HR 119 RR25)
-hX chronic venous insufficiency with right lower extremity wound
- Admit to med/surg
- appreciate ID recs
- IV Avycaz q8,
- Continue with Vashe as it has antipseudomonal properties and will decrease overall bioburden
- Wound care
- supportive care, Lower extremity compressive modalities (Jeovanny) to decrease edema.
- Pain meds with Tylenol plus Tramadol
- Wound culture showed growth of Pseudomonas and Streptococcus
- blood culture NGTD
#Constipation
-hx of constipation
-taking over the counter Dulcolax at home
-continue bowel regime and one Dulcolax suppositories as needed
#Cough
- only at morning
- clear lung per auscultation
-continue Robitussin
#hyponatremic
- Na+ 129--130--131--132
- IVF
- trend BMP
#anemia
hgb 8.6--7.4--7.8--7.8--7.6 hct 29.0
-hX of bleeding hemorrhoid , on Eliquis
- iron studies consistent with iron deficiency anemia
- monitor h and h
#hypertension
- continue metoprolol
#hyperlipidemia
- continue atorvastatin
#paroxysmal atrial fibrillation
- continue Eliquis and metoprolol
#chronic HFpEF
- daily weights
- I & Os
- continue bumetanide PRN
#restless leg syndrome
- continue ropinirole
#neuropathy
- continue pregabalin
#GERD
- continue omeprazole
Code status: full code
DVT prophlyaxis: Eliquis
Anticipated Discharge: > 48 hours
Subjective/Interval History
-
Date of Service: November 30, 2024
Patient still constipated today although she is currently on bowel regime that started yesterday. Her right lower leg pain improved and painful only during the dressing changes. She reports mild cough only in the morning. Denied shortness of breath,
chest pain.
Objective Data
-
Labs:
Laboratory Results
11/30/24
05:46
WBC 6.3
Hgb 7.6 L
Hct 27.1 L
Plt Count 321
Sodium 132 L
Potassium 4.4
Chloride 99
Carbon Dioxide 30
BUN 10
Creatinine 0.5 L
Glucose 138 H
Calcium 7.9 L
Total Bilirubin 0.1 L
AST 18
ALT 15
Alkaline Phosphatase 72
Vital Signs:
Vital Signs
Temp Pulse Resp BP Pulse Ox
97.7 F 83 16 109/91 95
11/30/24 07:00 11/30/24 07:00 11/30/24 07:00 11/30/24 07:00 11/30/24 09:06
I&O
11/29/24 11/30/24 12/01/24
06:59 06:59 06:59
Intake Total 180 / 180 660 / 660
Balance 180 / 180 660 / 660
Review of Systems
-
History Source: Patient
Cardiac: Reports No Symptoms
Abdomen/GI: Reports Constipated and Bloated
Genitourinary: Reports No Symptoms
Musculoskeletal: Reports Other (Right lower leg soreness)
Skin: Reports Other (right lower leg wound )
Neuro: Reports No Symptoms
Physical Exam
-
General: Comfortable
HEENT: Normocephalic and Atraumatic
Respiratory: Clear to Auscultation
Cardiac: Regular Rhythm and S1/S2
GI: Soft and Nontender
Musculoskeletal: No Edema and Other (left AKA, Right lower leg wound dressing)
Skin: Warm and Dry
Neuro: Awake, Alert and Oriented
Psych: Calm
--- NOTE | 2024-11-30 11:44 | W.PN.ID1 ---
Date of Service
Date of Service: November 30, 2024
Today's Communication
Continue antibiotics through tomorrow then discontinue.
Assessment / Plan
Right lower extremity venous stasis wounds
Hx MDR-Pseudomonas
Fever
Right lower extremity pain
Hx CVA/TIA
HTN
Hx DVT/PE
Afib
HFpEF
hypothyroidism
Obesity: BMI 38
Restless leg syndrome
Recommendations:
Continue with Avycaz through tomorrow a.m. then discontinue.
Continue with Vashe as it has antipseudomonal properties and will decrease overall bioburden, along with general local wound care
Lower extremity compressive modalities (Jeovanny) to decrease edema.
Continue with lower extremity elevation.
Stressed that patient needs to be compliant with compressive modalities as this is the only thing that will help heal the wounds.
����������������������������������������������������������
Chief Complaint
-: Other (Right lower extremity wounds)
Subjective / Review of Systems
Review of Systems: No Fever and No Chills
Vital Signs / Physical Exam
Vital Signs
Vital Signs
Temp Pulse Resp BP Pulse Ox
97.7 F 83 16 109/91 95
11/30/24 07:00 11/30/24 07:00 11/30/24 07:00 11/30/24 07:00 11/30/24 09:06
Physical Exam
Constitutional: No Acute Distress, Comfortable, Chronically Ill, Non-toxic and Obese
Pulmonary: Non Labored
Gastrointestinal: Non Distended
Extremities: Other (Right leg dressed in Jeovanny wrap.)
Musculoskeletal: Other (Left AKA)
Wound: Other (Photos of leg taken by nurse of leg reviewed during today's dressing change. Decreased slough. Decreased overall erythema.)
Neurological: Awake and Alert
Psychological: Calm
Objective Data
Lab Data
Lab Results
11/30/24 05:46
11/30/24 05:46
Estimated Creat Clear 68 ml/min 11/30/24 05:46
Lactic Acid Cancelled 11/26/24 19:45
Total Bilirubin 0.1 mg/dl (0.2-1.3) L 11/30/24 05:46
AST 18 U/L (14-36) 11/30/24 05:46
ALT 15 U/L (0-35) 11/30/24 05:46
Alkaline Phosphatase 72 U/L (38-126) 11/30/24 05:46
Most recent labs reviewed.
Micro Results:
11/26/24 15:57 Wound Culture - Preliminary
Leg - Right Pseudomonas aeruginosa
Streptococcus agalactiae
Gram Stain - Preliminary
11/26/24 15:57 Blood Culture - Preliminary
Blood/Venous No Growth in 72 hours- Final report to follow
11/26/24 15:49 Blood Culture - Preliminary
Blood/Venous No Growth in 72 hours- Final report to follow
09/12/[address]: No evidence of pulmonary embolism or thoracic aortic dissection. Mild bibasilar subsegmental atelectasis, otherwise clear lungs.
Care Review
Plan reviewed with: Physician (Hospitalist)
[2024-11-30 13:25] LABS: Anisocytosis Slight
[2024-11-30 13:26] LABS: Hypochromasia +1; Tear Drop Red Blood Cells FEW
[2024-11-30 13:27] LABS: Macrocytosis Slight
[2024-11-30 14:32] LABS: Normal RBC Morphology No
[2024-11-30 15:00] VITALS: BP 118/54
[2024-11-30] MEDS: TOPROL XL 25 MG PO (21:17)
[2024-11-30] MEDS: SENOKOT-S PO (21:18)
[2024-11-30] MEDS: LIPITOR 40 MG PO (21:20)
[2024-11-30 22:20] VITALS: BP 124/62
[2024-12-01 06:16] LABS: Hematocrit 28.3 % (37.0-47.0); Hemoglobin 8.0 g/dL (12.0-16.0); Mean Corp Hgb Conc. 28.3 g/dL (33.0-37.0); Mean Corpuscular Volume 80.6 fL (81.0-99.0); Nucleated Red Blood Cells % 0 %; Platelet Count 329 10^3/uL (130-400); Red Cell Dist. Width 16.9 % (11.5-14.5)
[2024-12-01 06:39] LABS: ALT (SGPT) 16 U/L (0-35); AST (SGOT) 19 U/L (14-36); Albumin 2.5 g/dl (3.5-5.0); Alkaline Phosphatase 69 U/L (38-126); Blood Urea Nitrogen 8 mg/dl (7-17); Calcium 8.0 mg/dl (8.4-10.2); Carbon Dioxide 32 mmol/L (22-30); Chloride 100 mmol/L (98-107); Estimated Creatinine Clearance 68 ml/min; Glucose 107 mg/dl (70-99); Potassium 4.5 mmol/L (3.5-5.1); Sodium 133 mmol/L (135-145); Total Protein 5.1 g/dl (6.3-8.2); eGFR > 60.00
[2024-12-01 07:06] VITALS: BMI 37.5
[2024-12-01] MEDS: LYRICA 150 MG PO (07:51)
[2024-12-01] MEDS: SENOKOT-S PO ×2 (07:51→07:58)
[2024-12-01] MEDS: REQUIP 4 MG PO ×2 (07:51→16:00)
[2024-12-01] MEDS: ELIQUIS 5 MG PO (07:51)
[2024-12-01] MEDS: PROTONIX 40 MG PO (07:51)
[2024-12-01] MEDS: DESENEX/MITRAZOL/ZEASORB 1 APPLIC TOPICAL (07:59)
[2024-12-01 08:03] VITALS: BP 122/54
--- NOTE | 2024-12-01 08:48 | W.PN.HOSP.TC ---
Addendum entered and electronically signed by Shobha Tavarez MD 12/01/24 17:19:
I saw and evaluated the patient independently. I reviewed the resident�s note and agree with findings and plan as documented by Dr. Alfred.
GENERAL: well developed, well nourished, female in no apparent distress
HEENT:NC/AT--No O2 requirements
HEART: regular rate and rhythm, +S1, +S2
LUNGS : clear to auscultation bilaterally
ABDOM: soft, nontender, nondistended, + bowel sounds
EXT: no cyanosis, clubbing--left leg wrapped with jeovanny wrap
NEUROLOGIC: grossly intact
Sepsis likely secondary to RLE Pseudomonas and Streptococcus cellulitis with history of chronic venous insufficiency--completed Avycaz--apprec ID--cont Vashe--cont jeovanny compression/leg elevation
Constipation-OTC Dulcalox PRN at home
hyponatremia--likely due to SIADH from infection/leg pain--improving
anemia likely of chronic disease--low iron but adequate ferritin and normal TIBC
Essential hypertension- Continue metoprolol
hyperlipidemia- Continue atorvastatin
paroxysmal atrial fibrillation - Continue Eliquis and metoprolol
chronic HFpEF- Continue bumetanide PRN--no exacerbation
restless leg syndrome- Continue ropinirole
neuropathy - Continue pregabalin
GERD- Continue omeprazole
DVT proph--Eliquis
Code status--FULL CODE
Original Note:
Today's Communication/Plan
-
Discontinue Avycaz
Continue with Vashe as it has antipseudomonal properties and will decrease overall bioburden, along with general local wound care
Lower extremity compressive modalities (Jeovanny) to decrease edema.
Continue with lower extremity elevation.
Stressed that patient needs to be compliant with compressive modalities as this is the only thing that will help heal the wounds.
Assessment / Plan
Assessment / Plan
Patient is a 84-year-old female with past medical history significant for hypertension, hyperlipidemia, paroxysmal atrial fibrillation, chronic HFpEF, chronic venous insufficiency with right lower extremity wound, restless leg syndrome, neuropathy
and GERD who presented to [facility] ED via EMS from home at recommendation of visiting nurse for evaluation of hypotension and tachycardia. Patient with hospitalization in September 2024 for sepsis 2/2 RLE wound cellulitis and has been receiving home care
since for monitoring and wound care. Visiting nurse today expressed concern for tachycardia and hypotension and recommended patient cme to ED for evaluation so EMS was called. Patient admitted for sepsis secondary secondary to RLL cellulitis.
Patient stated has constipation that she was taking the Dulcolax over the counter chewable tablets. Today, Patient denies any nausea, vomiting, diarrhea or constipation.
#Sepsis likely secondary to RLE cellulitis (101.3, HR 119 RR25)
-hX chronic venous insufficiency with right lower extremity wound
-D/C Avycaz
-Continue w/Vashe as it has antipseudomonal properties that will decrease overall burden, along with general local wound care.
-LE compressive modalities (JEOVANNY) to reduce edema.
-Continue with LE elevation.
-Supportive care.
-Patient educated on the importance of maintenance of wound care to reduce chances of reinfection.
-Pain meds with Tylenol
-Wound culture showed growth of Pseudomonas and Streptococcus
-Blood culture NGTD
#Constipation
-Hx of constipation
-OTC Dulcalox PRN at home
#Cough
-Bilateral lungs clear on auscultation
-Continue Robitussin PRN
#hyponatremic
- Na+ 129--130--131--132--133
-Trending WNL
#anemia
hgb 8.6--7.4--7.8--7.8--7.6--8.0 hct 29.0--28.3
-Hx of bleeding hemorrhoid , on Eliquis
- iron studies consistent with iron deficiency anemia
-Trending WNL
#hypertension
- Continue metoprolol
#hyperlipidemia
- Continue atorvastatin
#paroxysmal atrial fibrillation
- Continue Eliquis and metoprolol
#chronic HFpEF
- Continue bumetanide PRN
#restless leg syndrome
- Continue ropinirole
#neuropathy
- Continue pregabalin
#GERD
- Continue omeprazole
Code status: full code
DVT prophlyaxis: Eliquis
Anticipated Discharge: Today
Subjective/Interval History
-
Date of Service: December 01, 2024
Patient is a 84-year-old female with past medical history significant for hypertension, hyperlipidemia, paroxysmal atrial fibrillation, chronic HFpEF, chronic venous insufficiency with right lower extremity wound, restless leg syndrome, neuropathy
and GERD who presented to [facility] ED via EMS from home at recommendation of visiting nurse for evaluation of hypotension and tachycardia om 11/29/2024. Patient with hospitalization in September 2024 for sepsis 2/2 RLE wound cellulitis and has been
receiving home care since for monitoring and wound care. Visiting nurse expressed concern for tachycardia and hypotension and recommended patient come to ED for evaluation so EMS was called. Patient admitted for sepsis secondary secondary to RLL
cellulitis
Has stated she has constipation that she was taking the Dulcolax over the counter chewable tablets
As of today, patient denies any nausea, vomiting, fever, diarrhea or constipation. She denies any leg pain and seems happy to be discharged out of the hospital.
Objective Data
-
Labs:
Laboratory Results
12/01/24
05:39
WBC 5.8
Hgb 8.0 L
Hct 28.3 L
Plt Count 329
Sodium 133 L
Potassium 4.5
Chloride 100
Carbon Dioxide 32 H
BUN 8
Creatinine 0.5 L
Glucose 107 H
Calcium 8.0 L
Total Bilirubin 0.2
AST 19
ALT 16
Alkaline Phosphatase 69
Vital Signs:
Vital Signs
Temp Pulse Resp BP Pulse Ox
98.1 F 90 16 122/54 95
12/01/24 08:03 12/01/24 08:03 12/01/24 08:03 12/01/24 08:03 12/01/24 08:03
I&O
11/30/24 12/01/24 12/02/24
06:59 06:59 06:59
Intake Total 660 / 660 240 / 240
Balance 660 / 660 240 / 240
Review of Systems
-
History Source: Patient
All other systems: Reviewed and negative
Physical Exam
-
General: Comfortable
HEENT: Normocephalic and Atraumatic
Respiratory: Clear to Auscultation
Cardiac: Regular Rhythm and S1/S2
GI: Soft and Nontender
Musculoskeletal: No Edema and Other (Left AKA, RLL wound dressing)
Skin: Warm and Dry
Neuro: AO x 3
Psych: Calm
Data Reviewed
-
Labs: Labs Reviewed by me and Discussed with Physician
--- NOTE | 2024-12-01 11:29 | W.PN.ID1 ---
Date of Service
Date of Service: December 01, 2024
Today's Communication
Discontinue further antibiotics. Continue with local wound care.
Assessment / Plan
Right lower extremity venous stasis wounds
Hx MDR-Pseudomonas
Fever
Right lower extremity pain
Hx CVA/TIA
HTN
Hx DVT/PE
Afib
HFpEF
hypothyroidism
Obesity: BMI 38
Restless leg syndrome
Recommendations:
Discontinue further Avycaz.
Continue with Vashe as it has antipseudomonal properties and will decrease overall bioburden, along with general local wound care. fleet assistant previously counseled on local wound care.
Lower extremity compressive modalities (Jeovanny) to decrease edema are mandatory.
Continue with lower extremity elevation.
Stressed that patient needs to be compliant with compressive modalities as this is the only thing that will help heal the wounds.
����������������������������������������������������������
Chief Complaint
-: Other (Right lower extremity wounds)
Subjective / Review of Systems
Review of Systems: No Fever and No Chills
Vital Signs / Physical Exam
Vital Signs
Vital Signs
Temp Pulse Resp BP Pulse Ox
98.1 F 90 16 122/54 95
12/01/24 08:03 12/01/24 08:03 12/01/24 08:03 12/01/24 08:03 12/01/24 08:03
Physical Exam
Constitutional: No Acute Distress, Comfortable, Chronically Ill, Non-toxic and Obese
Pulmonary: Non Labored
Gastrointestinal: Non Distended
Extremities: Other (Right leg dressed in Jeovanny wrap.)
Musculoskeletal: Other (Left AKA)
Wound: Other (Diffuse superficial right lower extremity venous stasis wounds. No malodor. Improved slough.)
Neurological: Awake and Alert
Psychological: Calm
Objective Data
Lab Data
Lab Results
12/01/24 05:39
12/01/24 05:39
Estimated Creat Clear 68 ml/min 12/01/24 05:39
Lactic Acid Cancelled 11/26/24 19:45
Total Bilirubin 0.2 mg/dl (0.2-1.3) 12/01/24 05:39
AST 19 U/L (14-36) 12/01/24 05:39
ALT 16 U/L (0-35) 12/01/24 05:39
Alkaline Phosphatase 69 U/L (38-126) 12/01/24 05:39
Most recent labs reviewed.
Micro Results:
11/26/24 15:57 Blood Culture - Preliminary
Blood/Venous No Growth in 4 days- Final report to follow
11/26/24 15:49 Blood Culture - Preliminary
Blood/Venous No Growth in 4 days- Final report to follow
11/26/24 15:57 Wound Culture - Preliminary
Leg - Right Pseudomonas aeruginosa
Streptococcus agalactiae
Gram Stain - Preliminary
09/12/[address]: No evidence of pulmonary embolism or thoracic aortic dissection. Mild bibasilar subsegmental atelectasis, otherwise clear lungs.
Care Review
Plan reviewed with: Physician (Hospitalist)
--- NOTE | 2024-12-01 14:32 | CM ---
Patient for discharge today and CM called to [facility] and they indicated that they would be looking for updated clinical information. Per all scripts patient is accepted, Please fax clinicals to [phone]. CM will continue to follow for
discharge planning needs.
Plan; home with aide/; [facility] to follow
[2024-12-01 15:23] VITALS: BP 128/62
[2024-12-01] MEDS: ULTRAM 50 MG PO (16:13)
--- NOTE | 2024-12-01 16:31 | W.DCSUMMARY ---
Addendum entered and electronically signed by Shobha Tavarez MD 12/01/24 19:34:
Read, reviewed, and agree. See same day progress note for additional details. Time spent coordinating care, DC planning, review of DC plan of care with resident, transition of care, review of records in EMR, med rec, consults, notes, d/w
consultants, nursing, family, and CM = 33 minutes
Original Note:
Discharge Summary
Discharge Data
Date of Admission: 11/26/24
Date of Discharge: 12/01/24
-
Pending Results: No
Hospital Course
Discharging Physician : Dr. Shobha Tavarez, Dr. Kayode Alfred
Disposition : Home
Primary care physician : Stef Flores
Principal Discharge diagnosis : Sepsis likely secondary to RLE cellulitis
Chronic Discharge diagnosis : Constipation, Cough, Hyponatremia, Anemia, HTN, HLD, Paroxysmal A- Fib, Chronic HFpEF, RLS, Neuropathy and GERD.
Hospital Course : Patient is a 84-year-old female with past medical history significant for hypertension, hyperlipidemia, paroxysmal atrial fibrillation, chronic HFpEF, chronic venous insufficiency with right lower extremity wound, restless leg
syndrome, neuropathy and GERD, Left AKA who presented to [facility] ED via EMS from home at recommendation of visiting nurse for evaluation of hypotension and tachycardia. Patient with hospitalization in September 2024 for sepsis 2/2 RLE wound cellulitis and
has been receiving home care since for monitoring and wound care. Visiting nurse today expressed concern for tachycardia and hypotension and recommended patient to go to ED for evaluation so EMS was called. Patient reports increased pain to the RLE
recently managed with PRN Tylenol and PRN tramadol. Denies any fever, chills, cough, shortness of breath, chest pain, nausea, vomiting, constipation, diarrhea or urinary symptoms. labs at ER hgb 8.6, hct 29.0, Na+ 129, Ca 8.3 corrected to 9.3 wbc
WNL , T 101.3, RESP 25, HR 119. Big wound with purulent pus on her right lower leg. Patient was admitted for sepsis secondary to right lower leg cellulitis. ID consulted. Patient has multiple drug allergies. started on IV Avycaz q8 with wound care,
blood culture showed NGTD and wound culture showed growth of Pseudomonas and Streptococcus. She received pain medication with Tylenol plus Tramadol together which improved her pain. She used supportive care, Lower extremity compressive modalities
(Jeovanny) to decrease edema and Vashe as a topical solution on her wound as it has antipseudomonal properties and will decrease overall bioburden. Her fever subsided as well as her heart rate.
During hospitalization patient was c/o constipation which she has chronically and takes Dulcolax over the counter. Bowel regimen started at the hospital. She has been complaining of cough specially in the morning and she received Robitussin. She has
hyponatremia per labs and she was asymptomatic. Chronic anemia Hb 7.6 , iron study was done and consistent with iron deficiency anemia.
In addition to the above conditions , all chronic condition has been managed by patient home meds without any changes. Patient remained AFVSS.
Important imaging findings : None
Procedure findings : None
Discharge Plan
-
Patient Disposition: Home (Routine Discharge)
Discharge Diagnosis/Procedures: sepsis secondary to Right lower leg cellulitis, hyponatremia, anemia likely of chronic disease, essential hypertension, chronic heart failure with preserved ejection fraction, paroxysmal atrial fibrillation, restless
leg syndrome, neuropathy, gastroesophageal reflux disease
Condition: Fair
Diet: Low Cholesterol
Activity: With assistance
Driving Restrictions: No driving
Bathing Restrictions: After dressing removed
Wound Care: Wound Care Instructions Right Lower Leg and right dorsal foot- Clean with Vashe and apply adaptic over open areas. Cover with ABD and kathi and wrap with JEOVANNY. Change twice daily.
Turning schedule
Air overlay or air bed
-Right Lower extremity compressive modalities (Jeovanny) to decrease edema.
-Right lower extremity elevation.
Activity Restrictions/Additional Instructions:
Wound Care Instructions Right Lower Leg and right dorsal foot- Clean with Vashe and apply adaptic over open areas. Cover with ABD and kathi and wrap with JEOVANNY. Change BID.
Turning schedule
Air overlay or air bed
Instructions: Cellulitis (skin infection) in adults (DC)
Referrals:
Stef Flores MD [Family Provider, Family Practice] - in less than 1 week
Anne Fuchs MD [Active, Infectious Diseases] - in one to two weeks
Prescriptions:
New
Vashe 0.033 % irrigation solution
1 irrig irrigation DAILY PRN (Reason: wound care) 30 Days Qty: 5700 0RF
polyethylene glycol 3350 17 gram Powder In Packet
17 g PO DAILYPRN PRN (Reason: constipation) Qty: 1 0RF
miconazole nitrate [Miconazorb AF] 2 % Powder
1 applic topical BID Qty: 1 0RF
bisacodyl 10 mg Suppository
10 mg KY Q48H PRN (Reason: CONSTIPATION) Qty: 12 0RF
dextromethorphan-guaifenesin 10-100 mg/5 mL Syrup
10 ml PO Q4HPRN PRN (Reason: cough) Qty: 0 0RF
Continued
atorvastatin [Lipitor] 40 MG tablet
40 mg PO HS
ropinirole 2 MG tablet
4 mg PO TID
Patient Comments:
09/12/24: Pt states she thinks she takes 2 tablets Q6H but last confirmed dose in [facility] is [address] Becker. No pharmacy fill history available
Eliquis 5 MG tablet
5 mg PO BID
pregabalin 150 mg capsule
150 mg PO BID
omeprazole 40 mg capsule,delayed release(DR/EC)
40 mg PO DAILY
albuterol sulfate 90 mcg/actuation HFA aerosol inhaler
2 puff inhalation R Q4HPRN PRN (Reason: sob wheezing)
tramadol 50 mg tablet
50 mg PO Q4HPRN PRN (Reason: moderate pain)
Patient Comments:
11/27/2024: Pt states she takes 2 tabs every time, Tramadol is prescribed as 1 tab.
miconazole nitrate [Miconazorb AF] 2 % powder
1 applic topical BIDPRN PRN (Reason: b/l breasts and abd folds)
bumetanide 0.5 mg tablet
0.5 mg PO MOWEFR PRN (Reason: increased edema )
metoprolol succinate [Toprol XL] 25 mg tablet extended release 24 hr
25 mg PO HS
Discharge Orders:
Discharge Patient (As Directed); Ordered 12/01/24
Ordered By: Kayode Alfred
Discharge Date and Time
Discharge Date/Time: 12/01/24 18:28
Print Language: NAURUAN
--- NOTE | 2024-12-01 16:36 | CM ---
Patient seen at bedside with physicians. IMM completed and signed form placed on chart. Patient for discharge home with [facility]. CM left VM for patient and patient has called for transportation home. Please fax clinicals to
[phone]. CM will continue to follow for discharge planning needs.
PLan; home with and aid; [facility] care to follow
== END 2024-12-01 18:28 | disposition home health service (06) | DRG 872 ==
LOC: 3 WEST ACU 17:08
PROVIDERS: Emergency Medicine; General Practice; Nurse Practitioner Family; Specialist Research Data Abstracter/Coder; ADMITTING PHYSICIAN Student in an Organized Health Care Education/Training Program; ATTENDING PHYSICIAN Internal Medicine; EMERGENCY PHYSICIAN Emergency Medicine; FAMILY PHYSICIAN Family Medicine; OTHER PHYSICIAN Internal Medicine Infectious Disease
DX: A41.9 Sepsis, unspecified organism (principal); L03.115 Cellulitis of right lower limb; I50.32 Chronic diastolic (congestive) heart failure; E22.2 Syndrome of inappropriate secretion of antidiuretic hormone; K59.00 Constipation, unspecified; I11.0 Hypertensive heart disease with heart failure; G25.81 Restless legs syndrome; G62.9 Polyneuropathy, unspecified; K21.9 Gastro-esophageal reflux disease without esophagitis; E78.00 Pure hypercholesterolemia, unspecified; I87.2 Venous insufficiency (chronic) (peripheral); Z89.612 Acquired absence of left leg above knee; I48.0 Paroxysmal atrial fibrillation; D63.8 Anemia in other chronic diseases classified elsewhere; D50.9 Iron deficiency anemia, unspecified; Z86.73 Personal history of transient ischemic attack (TIA), and cerebral infarction without residual deficits; Z79.01 Long term (current) use of anticoagulants; Z96.611 Presence of right artificial shoulder joint; Z96.653 Presence of artificial knee joint, bilateral; M48.00 Spinal stenosis, site unspecified; Z88.1 Allergy status to other antibiotic agents; Z91.040 Latex allergy status; Z79.899 Other long term (current) drug therapy; Z68.37 Body mass index [BMI] 37.0-37.9, adult; E03.9 Hypothyroidism, unspecified; I87.8 Other specified disorders of veins; Z90.710 Acquired absence of both cervix and uterus; Z86.14 Personal history of Methicillin resistant Staphylococcus aureus infection; Z22.9 Carrier of infectious disease, unspecified; I89.0 Lymphedema, not elsewhere classified
CPT/HCPCS: 80048; 80053; 82607; 82728; 83540; 83550; 83605; 85014; 85018; 85025; 85027; 87040; 87070; 87077; 87147; 87186; 87205; 90662; 97162; 97530; G0008; J0714

== ENCOUNTER 2024-12-06 20:11 | Inpatient (IN) | payer MEDICARE, BC, SELFPAY ==
[2024-12-06] VITALS (8 sets, daily range): BP systolic 99–134; BP diastolic 57–91; PULSE 110–114; BMI 40.6
[2024-12-06 18:17] LABS: Hematocrit 25.9 % (37.0-47.0); Hemoglobin 7.6 g/dL (12.0-16.0); Mean Corp Hgb Conc. 29.3 g/dL (33.0-37.0); Mean Corpuscular Volume 76.6 fL (81.0-99.0); Nucleated Red Blood Cells % 0 %; Platelet Count 324 10^3/uL (130-400); Red Cell Dist. Width 17.4 % (11.5-14.5)
[2024-12-06 18:40] LABS: ALT (SGPT) 17 U/L (0-35); AST (SGOT) 30 U/L (14-36); Albumin 2.9 g/dl (3.5-5.0); Alkaline Phosphatase 77 U/L (38-126); Blood Urea Nitrogen 13 mg/dl (7-17); Calcium 8.3 mg/dl (8.4-10.2); Carbon Dioxide 33 mmol/L (22-30); Chloride 99 mmol/L (98-107); Glucose 119 mg/dl (70-99); Potassium 4.7 mmol/L (3.5-5.1); Sodium 131 mmol/L (135-145); Total Protein 5.8 g/dl (6.3-8.2); eGFR > 60.00
--- NOTE | 2024-12-06 19:25 | ED.GENMED ---
History of Present Illness
General
Chief Complaint: Rectal Bleeding
Source: patient
Exam Limitations: none
Time Seen by Provider: 12/06/24 18:47
History of Present Illness
History of Present Illness:
See MDM
Past History
Past History
ED Past Medical History: Arrthythmia, HTN, Hypercholesterolemia, Other (DVT) and Other (DVT, cervical disc disease, osteoarthritis, MRSA, DVT/PE); Negative IDDM
ED Past Surgical History: Bowel resection, Gynecological, Orthopedic (Cervical-lumbar fusion, right shoulder replacement 2014, left knee replacement) and Other (Partial thyroidectomy. Multiple dental procedures)
Social History
Tobacco: Non-smoker
Alcohol: None
Drug: None
Personal:
Living: with family
Employment: Retired
Family History
Family History: Hypertension
Phy Exam
Physical Exam
Physical Exam:
See MDM
Course
Orders/Labs/Results
Orders:
Orders
12/06/24 18:08
Type+Screen Urgent
Complete Blood Count/With Diff Urgent
Comprehensive Metabolic Panel Urgent
12/06/24 19:17
Blood Bank Products [* Blood Bank Products] Urgent
'margarita Orders: Paul Burleson, DO
Blood Bank Products: *Packed RBC Leuko (PRBC's
Quantity: 1
Transfuse Today: Yes
Reason: Bleeding
Abnormal Lab Results
12/06/24
18:08
RBC 3.38 L 10^6/uL
(4.20-5.40)
Hgb 7.6 L g/dL
(12.0-16.0)
Hct 25.9 L %
(37.0-47.0)
MCV 76.6 L fL
(81.0-99.0)
MCH 22.5 L pg
(27.0-31.0)
MCHC 29.3 L g/dL
(33.0-37.0)
RDW 17.4 H %
(11.5-14.5)
Sodium 131 L mmol/L
(135-145)
Carbon Dioxide 33 H mmol/L
(22-30)
Glucose 119 H mg/dl
(70-99)
Calcium 8.3 L mg/dl
(8.4-10.2)
Total Protein 5.8 L g/dl
(6.3-8.2)
Albumin 2.9 L g/dl
(3.5-5.0)
12/06/24 18:08
12/06/24 18:08
Vital Signs
Initial and Last Documented VS:
Initial Vital Signs
Temp Pulse Resp BP Pulse Ox
97.6 F 108 18 128/59 97
12/06/24 17:44 12/06/24 17:44 12/06/24 17:44 12/06/24 17:44 12/06/24 17:44
Last Documented Vital Signs
Temp Pulse Resp BP Pulse Ox
97.6 F 118 16 128/59 94
12/06/24 17:44 12/06/24 19:07 12/06/24 19:07 12/06/24 17:44 12/06/24 19:06
MDM/Problems Addressed
Differential Diagnosis Includes:
Note:
CHIEF COMPLAINT(S)
Rectal bleeding.
HISTORY OF PRESENT ILLNESS
The patient is an 84-year-old female with a history of hemorrhoids and anemia who presented with rectal bleeding. She describes the bleeding as bright and with clots, occurring while she was sitting and urinating. She noted both bright red and dark
red blood but no black stools. She is currently on apixaban. She did not take her Eliquis this morning. Her most recent hemoglobin today was approximately 7.6, down from a baseline of 8. She has a history of colon resection with eight inches of
the colon removed, and only a quarter of the rectum part remaining, per pt. She suspects hemorrhoids
Of note, patient was recently mated for right leg cellulitis but states it is improved
PAST MEDICAL AND SURGICAL HISTORY
- History of hemorrhoids
- Anemia
- Colon resection with removal of eight inches of colon
CHRONIC MEDICAL CONDITIONS SIGNIFICANTLY AFFECTING CARE
Chronic conditions affecting care: Anemia, Colon resection
PHYSICAL EXAM
General: Alert, no acute distress.
Skin: Warm, dry.
Head: Normocephalic, atraumatic
Neck: Appears supple, trachea midline.
Eyes, Ears, Nose, Mouth, and Throat: Moist mucous membranes
Cardiovascular: No signs of cyanosis
Respiratory: Respirations are non-labored.
Abdomen: Non-distended. Soft and nontender
Rectal: No fissure or external hemorrhoids noted. Mild bright red blood seen in rectal
Musculoskeletal: Left AKA. Right distal leg wrapped and mildly cellulitic
Neurological: No focal neurological deficit observed.
Psychiatric: Cooperative, appropriate mood and affect.
DIFFERENTIAL DIAGNOSIS
The Differential Diagnosis includes, in no particular order and is not limited to:
- Internal hemorrhoids
- Diverticulosis
- Surgical site complications
- Bleeding disorders related to apixaban
- Gastrointestinal malignancy
- Rectal varices
- Ulcerative colitis
- Ischemic colitis
- Angiodysplasia
- Anal fissure
SUMMARY OF ENCOUNTER
The patient, an 84-year-old female, presented to the emergency department with rectal bleeding. Given her history of anemia, colon resection, and apixaban use, she is at increased risk of bleeding complications. Physical examination confirmed bright
red blood per rectum. Considering her low hemoglobin levels and medication use, the decision was made to admit the patient for monitoring and possible blood transfusion. Further evaluation by the gastroenterology team is planned to determine the
bleeding source.
DISPOSITION
Admit.
ASSESSMENT
Rectal bleeding likely secondary to internal hemorrhoids or diverticulosis, possible contribution from recent surgical history.
EMERGENCY TREATMENTS ADMINISTERED
Blood transfusion planned.
ADDITIONAL TESTING AND IMAGING CONSIDERED
Considered CT scan but deemed not helpful given the patients current presentation. Possible colonoscopy for further investigation.
DIAGNOSIS
Rectal bleeding (K62.5)
SUMMARY OF ENCOUNTER
The patient, an 84-year-old female, presented to the emergency department with weakness, fatigue, and rectal bleeding. Her hemoglobin level was similar to her baseline, but her use of apixaban (Eliquis) was noted. Due to the concern of symptomatic
anemia possibly exacerbated by her condition and medication use, a decision was made to administer one unit of packed red blood cells. Due to her age and history of baseline anemia, the patient was admitted for hemoglobin trending and further
management.
DISPOSITION
Admit.
ASSESSMENT
Rectal bleeding with symptomatic anemia, likely contributed to by apixaban use and recent surgical history.
EMERGENCY TREATMENTS ADMINISTERED
Administered one unit of packed red blood cells.
MANAGEMENT OF THE PATIENTS CARE WAS DISCUSSED WITH
Case discussed with the hospitalist team.
PLAN
Administer blood transfusion and monitor hemoglobin levels. Admit for further evaluation and management of rectal bleeding and symptomatic anemia.
MEDICAL DECISION MAKING
-Complexity of Data Reviewed: Chronic conditions affecting care include anemia and history of colon resection. The differential diagnosis includes internal hemorrhoids, diverticulosis, surgical site complications, bleeding disorders related to
apixaban, gastrointestinal malignancy, rectal varices, ulcerative colitis, ischemic colitis, angiodysplasia, and anal fissure.
-Data:
Category 1: Independent review of lab results showed hemoglobin not far from baseline; however, symptomatic anemia prompted the decision for blood transfusion.
Category 3: Case discussed with the hospitalist team regarding the management of the patients anemia and rectal bleeding.
DIAGNOSIS
Rectal bleeding (ICD-10: K62.5).
*Pulse Oximetry
SaO2: 94
Oxygen Mode of Delivery: Room air
Patient hypoxic: no
*Critical Care Note
Total Time (30-74mins, 75-104mins- exclusive of procedures): 33 min
comment:
The high probability of a clinically significant, sudden or life threatening deterioration of the gastrointestinal system(s) required my full and direct attention, intervention and personal management. The aggregate critical care time was 33
minutes. This time is in addition to time spent performing reported procedures but includes the following:
[x] Data Review and interpretation
[x] Patient assessment and monitoring of vital signs
[x] Documentation
[x] Medication orders and management
ED Attending Note
-
Portions of this chart may have been created with voice recognition software.� Occasional wrong word or��sound alike� substitutions may have occurred due to the inherent limitations of voice recognition software.
Discharge Plan
Departure
Patient Disposition: Admit
Date of Disposition: 12/06/24
Time of Disposition: 19:37
Admit to: Telemetry
Presentation/result/management discussed w/ accepting MD/DO: Hospitalist
Discharge Problem:
Painless rectal bleeding, Symptomatic anemia
Prescriptions:
No Action
atorvastatin [Lipitor] 40 MG tablet
40 mg PO HS
ropinirole 2 MG tablet
4 mg PO TID
Patient Comments:
09/12/24: Pt states she thinks she takes 2 tablets Q6H but last confirmed dose in [facility] is [address] Becker. No pharmacy fill history available
Eliquis 5 MG tablet
5 mg PO BID
pregabalin 150 mg capsule
150 mg PO BID
omeprazole 40 mg capsule,delayed release(DR/EC)
40 mg PO DAILY
albuterol sulfate 90 mcg/actuation HFA aerosol inhaler
2 puff inhalation R Q4HPRN PRN (Reason: sob wheezing)
tramadol 50 mg tablet
50 mg PO Q4HPRN PRN (Reason: moderate pain)
Patient Comments:
11/27/2024: Pt states she takes 2 tabs every time, Tramadol is prescribed as 1 tab.
miconazole nitrate [Miconazorb AF] 2 % powder
1 applic topical BIDPRN PRN (Reason: b/l breasts and abd folds)
bumetanide 0.5 mg tablet
0.5 mg PO MOWEFR PRN (Reason: increased edema )
metoprolol succinate [Toprol XL] 25 mg tablet extended release 24 hr
25 mg PO HS
Vashe 0.033 % irrigation solution
1 irrig irrigation DAILY PRN (Reason: wound care) 30 Days Qty: 5700 0RF
polyethylene glycol 3350 17 gram Powder In Packet
17 g PO DAILYPRN PRN (Reason: constipation) Qty: 1 0RF
miconazole nitrate [Miconazorb AF] 2 % Powder
1 applic topical BID Qty: 1 0RF
bisacodyl 10 mg Suppository
10 mg ND Q48H PRN (Reason: CONSTIPATION) Qty: 12 0RF
dextromethorphan-guaifenesin 10-100 mg/5 mL Syrup
10 ml PO Q4HPRN PRN (Reason: cough) Qty: 0 0RF
Referrals:
Stef Flores MD [Family Provider, Family Practice]
Interventions
Interventions:
*Risk Screen - Suicide Last Done: 12/06/24 19:06
*General Assessment Last Done: 12/06/24 19:06
*Neglect/Abuse Screening Last Done: 12/06/24 19:06
*ED- Fall Risk Assessment Last Done: 12/06/24 19:06
*ED COVID-19 Vaccine History Last Done: 12/06/24 19:06
*ED Influenza Vaccine History Last Done: 12/06/24 19:06
IM-Tarltn-Hfbablcdae Assessment Last Done: 12/06/24 19:06
ED- Cardiac Assessment Last Done: 12/06/24 19:06
ED- Pulmonary Assessment Last Done: 12/06/24 19:06
Discharge Date and Time
Print Language: ROMANSH
--- NOTE | 2024-12-06 19:41 | HPS.HSE ---
Family Physician
-
Family Physician: Stef Flores
Chief Complaint
-
Bright red blood per rectum
History of Present Illness
HPI
84F Recent admission 11/26/24 - 12/01/24 due to sepsis , RLE cellulitis , withy significant PMHX for HTN, HLD, Prx AF, chr Eliquis
chronic HFpEF, chronic venous insufficiency with right lower extremity wound, restless leg syndrome, neuropathy and GERD, Left AKA seen at ER:
- pw rectal bleeding
- bright and with clots, occurring while she was sitting and urinating.
- noted both bright red and dark red blood but no black stools.
- currently on apixaban.
- HX hemorrhoids and anemia
- most recent Hgb 7.6, down from a baseline of 8.
- HX colon resection with eight inches of the colon removed, and only a quarter of the rectum part remaining, per pt.
- She suspects that internal hemorrhoids or a complication from a recent hospitalization where she had PureWick catheter insertion might have caused the bleeding.
Medical History
Past Medical History
Past Medical History: Reports Other
Additional Past Medical History:
CVA
PE/DVT
atrial fibrillation on Eliquis
chronic HFpEF
hypertension
hyperlipidemia
GERD
restless leg syndrome
spinal stenosis
neuropathy
Chronic venous insufficiency with right lower extremity wound
Past Surgical History: Reports Other
Additional Past Surgical History:
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
partial thyroidectomy
Cervical-lumbar fusion
right shoulder replacement 2014
left knee replacement
Right knee replacement
Social History
Tobacco: Non-smoker
Alcohol: None
Drug: None
Personal:
Living: With Family
Family History
Family History: Not pertinent
Allergies / Home Medications
Allergies reflects when Allergies were last updated in [employer].
Home Medications with original date entered in [employer]
Allergy/Medication List:
Allergies
Allergy/AdvReac Type Severity Reaction Status Date / Time
adhesive (Adhesive) Allergy Itching/RED Verified 11/26/24 14:22
NESS
Aminoglycosides Allergy Pharmacy Verified 11/26/24 14:22
to Review
azithromycin (Azithromycin) Allergy patient Verified 11/26/24 14:22
denies
celecoxib (From Celebrex) Allergy started to Verified 11/26/24 14:22
break out
with sores
ciprofloxacin (From Cipro) Allergy dizziness Verified 11/26/24 14:22
doxycycline Allergy Unknown Verified 11/26/24 14:22
erythromycin base Allergy CHEST PAIN Verified 11/26/24 14:22
furosemide (From Lasix) Allergy 'just Verified 11/26/24 14:22
doesn't
feel good'
- takes
bumetanide
at home
09/04/23
kanamycin Allergy Unknown Verified 11/26/24 14:22
latex Allergy Rash Verified 11/26/24 14:22
Home Medications
atorvastatin 40 mg tablet (Lipitor) 40 mg PO HS High cholesterol 06/22/20
ropinirole 2 mg tablet 4 mg PO TID RLS 07/25/22
apixaban 5 mg tablet (Eliquis) 5 mg PO BID Blood Clot Prevention/Tx 04/04/23
omeprazole 40 mg capsule,delayed release 40 mg PO DAILY Gastrointestinal Issue 04/04/23
pregabalin 150 mg capsule 150 mg PO BID Neurological Condition 04/04/23
albuterol sulfate 90 mcg/actuation aerosol inhaler 2 puff inhalation R Q4HPRN PRN sob wheezing 01/17/24
tramadol 50 mg tablet 50 mg PO Q4HPRN PRN moderate pain 03/18/24
miconazole nitrate 2 % topical powder (Miconazorb AF) 1 applic topical BIDPRN PRN b/l breasts and abd folds 06/05/24
bumetanide 0.5 mg tablet 0.5 mg PO MOWEFR PRN increased edema 11/26/24
metoprolol succinate 25 mg tablet,extended release 24 hr (Toprol XL) 25 mg PO HS 11/26/24
Review of Systems
-
Constitutional: Reports No Symptoms
EENT: Reports No Symptoms
Respiratory: Reports No Symptoms
Cardiac: Reports No Symptoms
: Reports No Symptoms
Musculoskeletal: Reports No Symptoms
Skin: Reports No Symptoms
Neurological: Reports No Symptoms
Endocrine: Reports No Symptoms
Hematologic/Lymphatic: Reports No Symptoms
Psych: Reports No Symptoms
Physical Exam
Vital Signs
Vital Signs
Temp Pulse Resp BP Pulse Ox
97.6 F 118 16 128/59 94
12/06/24 17:44 12/06/24 19:07 12/06/24 19:07 12/06/24 17:44 12/06/24 19:31
Physical Exam
General: Well Developed, Well Nourished and No Apparent Distress
HEENT: NormoCephalic, Moist mucous membranes and Atraumatic
Respiratory: Clear
Cardiac: S1/S2 and Regular Rhythm; No Murmur or Rub
GI: Soft, Non Tender, Non Distended and Normal Bowel Sounds; No Organomegaly
Rectal: Red
Musculoskeletal: Other (Lt AKA )
Skin: Other (RLE with excoriation, multiple ulcerations, erythema and edema, tender to touch))
Neuro: Nonfocal/grossly intact
Hematologic/Lymphatic: No Lymphadenopathy
Psych: Calm
Laboratory Results
-
12/06/24 18:08
12/06/24 18:08
Laboratory Results
Total Bilirubin 0.6 mg/dl (0.2-1.3) 12/06/24 18:08
AST 30 U/L (14-36) 12/06/24 18:08
ALT 17 U/L (0-35) 12/06/24 18:08
Alkaline Phosphatase 77 U/L (38-126) 12/06/24 18:08
Data Reviewed
-
Lab Data: Labs Reviewed by me
Impression/Plan
-
Vital Signs
Temp Pulse Resp BP Pulse Ox
97.6 F 118 16 128/59 94
12/06/24 17:44 12/06/24 19:07 12/06/24 19:07 12/06/24 17:44 12/06/24 19:31
12/01/24 12/06/24
05:39 18:08
Hgb 8.0 L 7.6 L
MCV 80.6 L 76.6 L
Sodium 131 L
Potassium 4.5 4.7
Creatinine 0.5 L 0.6
eGFR > 60.00 > 60.00
Calcium 8.0 L 8.3 L
Albumin 2.5 L 2.9 L
Last hospitalist admission: 11/26/24 - 12/01/24
Principal Discharge diagnosis : Sepsis likely secondary to RLE cellulitis
Chronic Discharge diagnosis : Constipation, Cough, Hyponatremia, Anemia, HTN, HLD, Paroxysmal A- Fib, Chronic HFpEF, RLS, Neuropathy and GERD.
ASSESSMENT & PLAN
Pending Rx reconciliation
Acute painful rectal bleed DDX:Internal hemorrhoids, Diverticulosis, GIB related to apixaban, Rectal varices, Angiodysplasia
Associated ACBLA
HX Chronic anemia - prior anemia likely of chronic disease with low iron but adequate ferritin and normal TIBC
- T & C
- Blood consented by ER
- agree with Blood Tx
- Trend H & H
- Hold Eliquis
- Clear
- IVF
- IV PPI daily
- GI consult
R Gordon venous stasis wounds - interval improvement comapring 2 pictures from cell phone : Afebrie , Nl WCC
S/P Avycaz as of 11/13/24
HX MDR-Pseudomonas
Right lower extremity pain
Hx DVT/PE
Lt AKA
Motorized WC bound
- Wd care consult
- Lower extremity compressive modalities (FRENCH ) to decrease edema are mandatory.
- lower extremity elevation at rest
Paroxysmal AF
- Hold Eliquis due to acute LGIB
- c/w metoprolol XL
HX Constipation
-Hold OTC Dulcolax PRN at home
Asymptomatic hyponatremia-likely due to vol contraction due to GIB
- Trend Na
Currently normotensive
Essential hypertension
- Continue metoprolol XL with Hold for HR < 65, SBP < 110
Hyperlipidemia
- c/w atorvastatin
HC chronic HFpEF - -no exacerbation
- Continue bumetanide PRN
Restless leg syndrome
- on ropinirole
Neuropathy
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
GERD
DVT prx -Eliquis
Full code
IP TLM
[2024-12-06] MEDS: NSS 1000 IV (21:49)
[2024-12-06 22:26] LABS: Hematocrit 29.6 % (37.0-47.0); Hemoglobin 8.7 g/dL (12.0-16.0)
[2024-12-06] MEDS: LYRICA 150 MG PO (22:47)
[2024-12-06] MEDS: TOPROL XL 25 MG PO (22:48)
[2024-12-06] MEDS: REQUIP 4 MG PO (22:49)
--- NOTE | 2024-12-06 23:45 | PTCARENOTE ---
Patient arrived to [facility] from ED. Patient pulled over from stretcher to bed. Patient AAOx3. Patient oriented to room, call schmid within reach, bed in lowest position. Patient noted to have expiratory wheeze. Patient told this RN she uses her inhaler
when wheezing. This RN stepped out of patient's room to reach out to ROUND CUTTER OPERATOR about getting breathing treatment ordered. This RN walked into patient's room to let her know order has been placed, finding patient with her own inhaler in hand stating she
just used her own inhaler. This RN educated patient on medications brought in from home policy and that this RN and respiratory team will administer any medication ordered. ROUND CUTTER OPERATOR Shraddha Abernathy notified. This RN sent inhaler to pharmacy. Breathing
treatment from [facility] no longer needed at this time. Will continue to monitor.
[2024-12-06] MEDS: TYLENOL 650 MG PO (23:50)
[2024-12-07] VITALS (7 sets, daily range): BP systolic 95–123; BP diastolic 51–66; PULSE 83–87; BMI 40.6
--- NOTE | 2024-12-07 07:14 | PTCARENOTE ---
Patient showing V tach on monitor. Dr. Shobha Tavarez notified. Patient sleeping comfortably. Day shift RN present and witnessed event.
[2024-12-07] MEDS: NSS (PRESERVATIVE FREE) 10 ML IV (07:55)
[2024-12-07] MEDS: LYRICA 150 MG PO ×2 (07:55→22:10)
[2024-12-07] MEDS: PROTONIX IV 40 MG IV (07:55)
[2024-12-07] MEDS: REQUIP 4 MG PO ×3 (07:55→22:10)
[2024-12-07 10:22] LABS: INR 1.11; PT 14.6 Sec (11.4-14.6)
[2024-12-07 10:39] LABS: Blood Urea Nitrogen 8 mg/dl (7-17); Calcium 7.7 mg/dl (8.4-10.2); Carbon Dioxide 31 mmol/L (22-30); Chloride 101 mmol/L (98-107); Estimated Creatinine Clearance 70 ml/min; Glucose 96 mg/dl (70-99); Potassium 4.0 mmol/L (3.5-5.1); Sodium 134 mmol/L (135-145); eGFR > 60.00
--- NOTE | 2024-12-07 11:20 | CON.GI ---
Consultation
-
Date/Time Consultation Requested: 12/07/24 8am
Date/Time Consultation Performed: 12/07/24 11:20am
Requesting Provider: Shobha Tavarez
Performing Provider: Emory Quintero
Reason for Consultation: Rectal bleeding
Medical History
Chief Complaint / HPI
Chief Complaint: Rectal bleeding
History of Present Illness:
84yo female presents with rectal bleeding on . Reports hard stool and anal pain with some straining followed by large amount of blood on TP. This was followed by multiple bloody BMs. Denies abd pain. The following two days she had less
bleeding but was concerned so came to ER. She was recently hospitalized 11/26-12/01 for sepsis related to R leg wound infection. She was also hospitalized in September for same. Had colonoscopy in 2007- diverticulosis and hemorrhoids. She reports
distant history of colon resection for endometriosis that required a temporary colostomy followed by reversal with Dr Narvaez. This was followed by a hysterectomy by Dr Parikh around age 35. She is on eliquis for Afib
Past Medical History
Past Medical History: Arrhythmias (afib), CHF and Other (endometriosis age 35- colon resection and hysterectomy)
Past Surgical History: Bowel Resection (colon resection for endometriosis- colostomy followed by reversal), Gynecological (hysterectomy) and Other (L AKA)
Social History
Tobacco: Non-Smoker
Alcohol: None
Family History
Family History: Reviewed & Not Pertinent
Allergies / Home Medications
Allergy/AdvReac Type Severity Reaction Status Date / Time
adhesive (Adhesive) Allergy Itching/RED Verified 12/06/24 17:51
NESS
Aminoglycosides Allergy Unknown Verified 12/06/24 17:51
azithromycin (Azithromycin) Allergy patient Verified 12/06/24 17:51
denies
celecoxib (From Celebrex) Allergy started to Verified 12/06/24 17:51
break out
with sores
ciprofloxacin (From Cipro) Allergy dizziness Verified 12/06/24 17:51
doxycycline Allergy Unknown Verified 12/06/24 17:51
erythromycin base Allergy CHEST PAIN Verified 12/06/24 17:51
furosemide (From Lasix) Allergy 'just Verified 12/06/24 17:51
doesn't
feel good'
- takes
bumetanide
at home
09/04/23
kanamycin Allergy Unknown Verified 12/06/24 17:51
latex Allergy Rash Verified 12/06/24 17:51
�Medication �Instructions �Recorded
atorvastatin 40 mg tablet (Lipitor) 40 mg PO HS High cholesterol 06/22/20
ropinirole 2 mg tablet 4 mg PO TID RLS 07/25/22
apixaban 5 mg tablet (Eliquis) 5 mg PO BID Blood Clot 04/04/23
Prevention/Tx
omeprazole 40 mg capsule,delayed 40 mg PO DAILY Gastrointestinal 04/04/23
release Issue
pregabalin 150 mg capsule 150 mg PO BID Neurological 04/04/23
Condition
albuterol sulfate 90 mcg/actuation 2 puff inhalation R Q4HPRN PRN sob 01/17/24
aerosol inhaler wheezing
tramadol 50 mg tablet 50 mg PO Q4HPRN PRN moderate pain 03/18/24
miconazole nitrate 2 % topical 1 applic topical BIDPRN PRN b/l 06/05/24
powder (Miconazorb AF) breasts and abd folds
bumetanide 0.5 mg tablet 0.5 mg PO MOWEFR PRN increased 11/26/24
edema
metoprolol succinate 25 mg 25 mg PO HS 11/26/24
tablet,extended release 24 hr
(Toprol XL)
sodium chloride-hypochlorous acid 1 irrig irrigation DAILY PRN wound 11/30/24
0.033 % irrigation solution (Vashe) care 30 days #5,700 mL
bisacodyl 10 mg rectal suppository 10 mg DC Q48H PRN CONSTIPATION #12 12/01/24
ea
dextromethorphan-guaifenesin 10 10 ml PO Q4HPRN PRN cough #0 mL 12/01/24
mg-100 mg/5 mL oral syrup
miconazole nitrate 2 % topical 1 applic topical BID Fungal 12/01/24
powder (Miconazorb AF) infection #1 g
polyethylene glycol 3350 17 gram 17 g PO DAILYPRN PRN constipation 12/01/24
oral powder packet #1 ea
Review of Systems
-
All other systems: A 12 pt ROS was Negative except as stated above in HPI
Vital Signs
Temp Pulse Resp BP Pulse Ox
97.9 F 97 18 107/66 94
12/07/24 08:12 12/07/24 08:12 12/07/24 08:12 12/07/24 08:12 12/07/24 08:12
Physical Exam
Exam
General: No Apparent Distress
HEENT: Normocephalic and Atraumatic
Respiratory: Non Labored Respirations
GI: Soft, Non Tender and Non Distended
Rectal: Other (small external hemorrhoids. small anal fissure at 6 o'clock position. No stool in vault, heme negative)
Musculoskeletal: Other (L AKA)
Skin: Other (R foot ulcerated wound with bandage)
Results
WBC 8.5 10^3/uL (4.8-10.8) 12/06/24 18:08
Hgb 8.7 g/dL (12.0-16.0) L 12/06/24 22:20
Hct 29.6 % (37.0-47.0) L 12/06/24 22:20
MCV 76.6 fL (81.0-99.0) L 12/06/24 18:08
Plt Count 324 10^3/uL (130-400) 12/06/24 18:08
Absolute Neuts (auto) 5.5 10^3/uL (1.4-6.5) 12/06/24 18:08
PT 14.6 Sec (11.4-14.6) 12/07/24 08:39
INR 1.11 12/07/24 08:39
Sodium 134 mmol/L (135-145) L 12/07/24 08:39
Potassium 4.0 mmol/L (3.5-5.1) 12/07/24 08:39
Chloride 101 mmol/L (98-107) 12/07/24 08:39
Carbon Dioxide 31 mmol/L (22-30) H 12/07/24 08:39
BUN 8 mg/dl (7-17) 12/07/24 08:39
Creatinine 0.5 mg/dL (0.6-1.0) L 12/07/24 08:39
Calcium 7.7 mg/dl (8.4-10.2) L 12/07/24 08:39
Total Bilirubin 0.6 mg/dl (0.2-1.3) 12/06/24 18:08
AST 30 U/L (14-36) 12/06/24 18:08
ALT 17 U/L (0-35) 12/06/24 18:08
Alkaline Phosphatase 77 U/L (38-126) 12/06/24 18:08
Diagnostic Image Results:
Prior GI Procedures:
EGD:
Colonoscopy:
Assessment / Plan
-
Summary: 84yo female presents with large amount of BRBPR on 12/04, followed by less bleeding. No abd pain. Was recently hospitalized 11/26-12/01 and also September for sepsis related to R LE wound. Colonoscopy 2007- diverticulosis, hemorrhoids. Age
35 she had colon resection for endometriosis requiring colostomy that was subsequently reversed, followed by hysterectomy. Hgb on admission 7.6, repeat 8.7 after 1 unit PRBC. D/C Hgb was 8.0 on 12/01. Small hemorrhoid and anal fissure on rectal
exam
Impresion:
Painless rectal bleeding, likely diverticular and likely resolved
Acute blood loss anemia. Mild drop from 8 to 7.6
Recent admissions for sepsis due to R LE wound
Afib on Eliquis
s/p colon resection for endometriosis age 35
Diverticulosis
L AKA
CHF
Recommendations:
Trend Hgb after 1 unit PRBC
Hold eliquis
If stable, can advance diet and resume eliquis
This is likely diverticular bleed that has resolved
I would hold off on colonoscopy at this time given her recent admission for sepsis, comorbidities and advanced age, and also since bleeding has stopped
We can discuss colonoscopy as outpt if she remains otherwise stable
HC cream for hemorrhoids
-
-
Thank you for consultation and allowing me to participate in the patient's care. Please call the online editor GI physician during the after hours with any questions or concerns.
[2024-12-07] MEDS: ULTRAM 50 MG PO (14:42)
--- NOTE | 2024-12-07 15:08 | W.PN.HOSP.TC ---
Addendum entered and electronically signed by Shobha Tavarez MD 12/07/24 18:18:
I saw and evaluated the patient independently. I reviewed and discussed the resident�s note and agree with findings and plan as documented by Dr. Alfred.
GENERAL: well developed, well nourished, female in no apparent distress
HEENT: NC/AT
HEART: regular rate and rhythm, +S1, +S2
LUNGS : clear to auscultation bilaterally
ABDOM: soft, nontender, nondistended, + bowel sounds
EXT: no cyanosis, clubbing--left AKA
NEUROLOGIC: grossly intact
acute blood loss anemia on anemia of chronic disease as BRBPR--painless and likely diverticular vs hemorrhoids exacerbated by Eliquis --apprec GI--s/p 1 unit pRBC with appropriate bump and stable HGB--diet advanced to low residue--steroid
suppository also started--hopeful d/c in AM if HGB steady and no further bleeding then restart Eliquis in AM--will need to follow up with GI as outpt
right leg venous stasis wounds--cont wound care
Essential hypertension- Continue metoprolol
hyperlipidemia- Continue atorvastatin
paroxysmal atrial fibrillation - holding Eliquis, restart in AM if no further bleeding-- cont metoprolol
chronic HFpEF- Continue bumetanide PRN--no exacerbation
restless leg syndrome- Continue ropinirole
neuropathy - Continue pregabalin
GERD- Continue omeprazole
DVT proph--Eliquis as above
Code status--FULL CODE
Original Note:
Today's Communication/Plan
-
Trend H&H
If stable, can advance diet to low residue and resume Eliquis
This is likely diverticular bleed that has resolved.
Hold off on her colonoscopy at this time, we can discuss an OP
IV PPI
Trend Sodium
Wound care consult
Potential D/C tomorrow
Assessment / Plan
Assessment / Plan
Impression:
84-year-old female presents with large amount of BRBPR on 12/04/2024, followed by less bleeding. There is no abdominal pain. She was hospitalized recently on 11/26 - 12/01 and also in September for sepsis related to right lower extremity wound. She
had a colonoscopy in 2007�diverticulosis, hemorrhoids. At age 35 she did had colon resection for endometriosis requiring colostomy that was subsequently reversed followed by hysterectomy. Hemoglobin on admission was 7.6 repeat 8.7 after 1 unit
PRBC. D/C hemoglobin was 8.0 on 12/01. Small hemorrhoid and anal fissure on rectal exam. Painless rectal bleeding, likely diverticular and likely resolved. Acute blood loss anemia. Mild drop from 8-7.6. Recent admissions for sepsis due to
right lower extremity wound. A-fib on Eliquis. S/P: Colon resection for endometriosis age 35. Diverticulosis. Left AKA. CHF.
Plan:
#Painless rectal bleeding, likely diverticular
-likely resolved
-Start Low Residue Diet
#Right Gordon Venous Stasis Wounds
-Wound care consult
#Acute blood loss anemia
� Trend hemoglobin after 1 unit PRBC
#A-fib
� Hold Eliquis
#S/P Colon Resection for endometriosis age 35
� Hold off on colonoscopy at this time given her comorbidities, advanced age recent admission for sepsis and the fact that the weakness has stopped. Can discuss colonoscopy and OP
#Hemorrhoids
� HC cream
Anticipated Discharge: 24 - 48 hours
Subjective/Interval History
-
Date of Service: December 07, 2024
Patient stated she started bleeding this past Sunday morning. She describes it as painless but constant red blood in the stool. She admits to having constipation and states that moving or switching positions helps sometimes.
She denies any other constitutional symptoms like fever, vomiting, nausea, diarrhea.
Objective Data
-
Labs:
Laboratory Results
12/07/24
08:39
PT 14.6
INR 1.11
Sodium 134 L
Potassium 4.0
Chloride 101
Carbon Dioxide 31 H
BUN 8
Creatinine 0.5 L
Glucose 96
Calcium 7.7 L
Vital Signs:
Vital Signs
Temp Pulse Resp BP Pulse Ox
97.9 F 87 17 104/60 90
12/07/24 12:34 12/07/24 12:34 12/07/24 12:34 12/07/24 12:34 12/07/24 12:41
I&O
12/06/24 12/07/24 12/08/24
06:59 06:59 06:59
Intake Total 250 / 250
Balance 250 / 250
Review of Systems
-
History Source: Patient
All other systems: Reviewed and negative
Constitutional: Reports Other (constipation)
Abdomen/GI: Reports Bloody Stools (painless red stools) and Other
Physical Exam
-
General: Well Developed, Well Nourished and No Apparent Distress
HEENT: Normocephalic and Atraumatic
Respiratory: Clear to Auscultation
Cardiac: Regular Rhythm and S1/S2
Breast: Deferred by me
GI: Soft, Nontender, Nondistended and Normal Bowel Sounds
Rectal: Red
Musculoskeletal: Other (Left AKA)
Skin: Other (RLE with excoriation, multiple ulcers, erythema and edema, tender to touch)
Neuro: Nonfocal/Grossly Intact
Hematologic / Lymphatic: No Lymphadenopathy
Psych: Calm
Data Reviewed
-
Labs: Labs Reviewed by me and Discussed with Physician
[2024-12-07] MEDS: NSS 1000 IV (17:45)
[2024-12-07] MEDS: TOPROL XL PO (22:07)
[2024-12-08 03:35] VITALS: BP 123/67
[2024-12-08 06:27] LABS: Hematocrit 28.5 % (37.0-47.0); Hemoglobin 8.7 g/dL (12.0-16.0); Mean Corp Hgb Conc. 30.5 g/dL (33.0-37.0); Mean Corpuscular Volume 79.8 fL (81.0-99.0); Nucleated Red Blood Cells % 0 %; Platelet Count 274 10^3/uL (130-400); Red Cell Dist. Width 17.5 % (11.5-14.5)
[2024-12-08 06:51] LABS: ALT (SGPT) 14 U/L (0-35); AST (SGOT) 20 U/L (14-36); Albumin 2.4 g/dl (3.5-5.0); Alkaline Phosphatase 74 U/L (38-126); Blood Urea Nitrogen 5 mg/dl (7-17); Calcium 7.7 mg/dl (8.4-10.2); Carbon Dioxide 31 mmol/L (22-30); Chloride 105 mmol/L (98-107); Estimated Creatinine Clearance 70 ml/min; Glucose 92 mg/dl (70-99); Magnesium 1.8 mg/dl (1.6-2.3); Potassium 3.6 mmol/L (3.5-5.1); Sodium 133 mmol/L (135-145); Total Protein 5.1 g/dl (6.3-8.2); eGFR > 60.00
[2024-12-08 07:48] VITALS: BP 139/58
[2024-12-08] MEDS: REQUIP 4 MG PO ×2 (07:53→15:45)
[2024-12-08] MEDS: LYRICA 150 MG PO (07:53)
[2024-12-08] MEDS: NSS (PRESERVATIVE FREE) 10 ML IV (07:54)
[2024-12-08] MEDS: PROTONIX IV 40 MG IV (07:54)
--- NOTE | 2024-12-08 08:00 | W.PN.HOSP.TC ---
Addendum entered and electronically signed by Jude Perez MD 12/08/24 22:45:
Attending Addendum:
I saw and evaluated the patient. I reviewed the resident�s note and agree with findings and plan as documented in the resident�s note. Sub: No further GI bleed. No BM. Wants to go home. Full 12 point ROS reviewed and negative except as documented
Exam: Vitals reviewed in chart GEN-NAd heart RRR lungs clear abd soft NT ND pos BS LE no edema Left AKA
Plan:
#acute blood loss anemia on anemia of chronic disease as BRBPR--painless and likely diverticular vs hemorrhoids exacerbated by Eliquis --apprec GI--s/p 1 unit pRBC with appropriate bump and stable HGB--diet advanced to low residue--steroid
suppository also started--
-restart eliquis, OP GI eval- apprec GI input stable for DC HB stable
#right leg venous stasis wounds--cont wound care
#Essential hypertension- Continue metoprolol
#hyperlipidemia- Continue atorvastatin
#paroxysmal atrial fibrillation -restart Eliquis, cont metoprolol
#chronic HFpEF- Continue bumetanide PRN--no exacerbation
#restless leg syndrome- Continue ropinirole
#neuropathy - Continue pregabalin
#GERD- Continue omeprazole
DVT proph--Eliquis as above
Code status--FULL CODE
Dispo-DC home
Time spent coordinating care, DC planning, review of DC plan of care with resident, transition of care, review of records, med rec/scripts sent electronically, consults, notes, d/w consultants, nursing, family, and CM� 31 mins >50% of this time was
devoted to counseling and coordination of care
Original Note:
Today's Communication/Plan
-
Hbg trending steady: 7.6 ---8.7 ---8.7
No further bleeding
Can restart Eliquis this AM
Diet tolerated and advanced to full diet
F/U with GI as outpatient (Hold off on colonoscopy at this time)
Continue wound care
Discharge today
Assessment / Plan
Assessment / Plan
Impression:
84-year-old female with a PMHx significant for HTN, HLD, Prx AF, Chronic Eliquis, Chronic HFpEF, and Chronic venous insufficiency with right LE wound presents to ED complaining of large amount of BRBPR on 12/04/2024, followed by less bleeding.
She states they were occurring while she was sitting and urinating. She noted both bright red and dark red blood but no black stools. Patient is currently on apixaban. Patient has a history of hemorrhoids and anemia, her most recent hemoglobin
7.6, down from a baseline of 8. Patient also has a history of colon resection with 8 inches of colon removed and only a quarter of rectum remaining.she initially suspected that internal hemorrhoids or a complication from her recent hospitalization
where she had a PureWick catheter insertion might have caused the bleeding. There is no abdominal pain. She was hospitalized recently on 11/26 - 12/01 and also in September for sepsis related to right lower extremity wound. She had a colonoscopy in
2007�diverticulosis, hemorrhoids. At age 35 she did had colon resection for endometriosis requiring colostomy that was subsequently reversed followed by hysterectomy. Hemoglobin on admission was 7.6 repeat 8.7 after 1 unit PRBC. D/C hemoglobin
was 8.0 on 12/01. Small hemorrhoid and anal fissure on rectal exam. As per GI, painless rectal bleeding, likely diverticular and likely resolved. There has been acute blood loss anemia, with a mild drop from 8-7.6. Recent admissions for sepsis
due to right lower extremity wound (11/26/24). She uses Eliquis for her A-fib, but that was held until she is more stable and can advance her diet at which point it will be resumed. Postpone colonoscopy at this time given her recent admission for
sepsis, comorbidities, advanced age, and since bleeding has stopped. As long as patient remains stable, colonoscopy can be discussed as outpatient. She was prescribed HC cream for hemorrhoids. This morning patient states she is doing fine, she
denies all constitutional symptoms but admits that she has not had a bowel movement. She is assured that she can be discharged now and later when she had a bowel movement, it may have a little blood in it. Patient states that she will watch out for
it if it does occur. No other new events were reported from the day.
Plan:
#Painless rectal bleeding, likely diverticular
-likely resolved
Tolerating advancement of LRD to Full
#Right Gordon Venous Stasis Wounds
-Wound care consult
#Acute blood loss anemia
� Trend hemoglobin after 1 unit PRBC
Last d/c (12/01/24) at it was 7.6 L
Upon arrival back to ED on (12/06/24) it was 8.7 L
Today 8.7 L
Hbg is trending steady.
No further bleeding this morning.
#A-fib
� Restart Eliquis
#S/P Colon Resection for endometriosis age 35
� Hold off on colonoscopy at this time given her comorbidities, advanced age recent admission for sepsis and the fact that the weakness has stopped. Can discuss colonoscopy and OP
#Hemorrhoids
� HC cream
Anticipated Discharge: Today
Subjective/Interval History
-
Date of Service: December 08, 2024
Overnight Events:
Patient has not any further bleeding. She is tolerating her advancement in diet well.
She will be put back on Eliquis and home medications will be updated and sent to pharmacy
Patient will be discharged today.
Objective Data
-
Labs:
Laboratory Results
12/08/24
06:10
WBC 6.6
Hgb 8.7 L
Hct 28.5 L
Plt Count 274
Sodium 133 L
Potassium 3.6
Chloride 105
Carbon Dioxide 31 H
BUN 5 L
Creatinine 0.4 L
Glucose 92
Calcium 7.7 L
Total Bilirubin 0.5
AST 20
ALT 14
Alkaline Phosphatase 74
Vital Signs:
Vital Signs
Temp Pulse Resp BP Pulse Ox
97.8 F 104 16 139/58 92
12/08/24 07:48 12/08/24 07:48 12/08/24 07:48 12/08/24 07:48 12/08/24 07:48
I&O
12/07/24 12/08/24 12/09/24
06:59 06:59 06:59
Intake Total 250 / 250 240 / 240
Balance 250 / 250 240 / 240
Review of Systems
-
History Source: Patient
All other systems: Reviewed and negative
Constitutional: Reports Other (constipation)
Abdomen/GI: Reports Bloody Stools (reduction in red blood in stool) and Other
Physical Exam
-
General: Well Developed, Well Nourished and No Apparent Distress
HEENT: Normocephalic and Atraumatic
Respiratory: Clear to Auscultation
Cardiac: Regular Rhythm and S1/S2
Breast: Deferred by me
GI: Soft, Nontender, Nondistended and Normal Bowel Sounds
Rectal: Red
Musculoskeletal: Other (Left AKA)
Skin: Other (RLE with excoriation, multiple ulcers, erythema and edema, tender to touch)
Neuro: Nonfocal/Grossly Intact
Hematologic / Lymphatic: No Lymphadenopathy
Psych: Calm
Data Reviewed
-
Labs: Labs Reviewed by me and Discussed with Physician
--- NOTE | 2024-12-08 08:45 | CM ---
CM met with patient at bedside to complete IA. Patient lives with her and president/[employer] & live experiences, [place] in a 2 story home Patient has a battery powered chair Patient has wound care clinic doctor and nursing coming to home. Patient is the
caregiver for her . Patient PCP is Dr. Ashton and she uses the [facility] in [place]. Patient plan is to return home with her caregiver and VN from [facility]. CM will continue to follow for discharge planning needs.
--- NOTE | 2024-12-08 09:23 | W.DCSUMMARY ---
Addendum entered and electronically signed by Jude Perez MD 12/08/24 22:46:
Read, reviewed, and agree. See same day progress note for additional details.
Mike Perez MD
Original Note:
Documented by User: Kayode Alfred MD, Resident 12/08/24 17:40
Discharge Summary
Discharge Data
Date of Admission: 12/06/24
Date of Discharge: 12/08/24
-
Pending Results: No
Hospital Course
84-year-old female with a PMHx significant for HTN, HLD, Prx AF, Chronic Eliquis, Chronic HFpEF, and Chronic venous insufficiency with right LE wound presents to ED complaining of large amount of BRBPR on 12/04/2024, followed by less bleeding.
She states they were occurring while she was sitting and urinating. She noted both bright red and dark red blood but no black stools. Patient is currently on apixaban. Patient has a history of hemorrhoids and anemia, her most recent hemoglobin
7.6, down from a baseline of 8. Patient also has a history of colon resection with 8 inches of colon removed and only a quarter of rectum remaining.she initially suspected that internal hemorrhoids or a complication from her recent hospitalization
where she had a PureWick catheter insertion might have caused the bleeding. There is no abdominal pain. She was hospitalized recently on 11/26 - 12/01 and also in September for sepsis related to right lower extremity wound. She had a colonoscopy in
2008�diverticulosis, hemorrhoids. At age 35 she did had colon resection for endometriosis requiring colostomy that was subsequently reversed followed by hysterectomy. Hemoglobin on admission was 7.6 repeat 8.7 after 1 unit PRBC. D/C hemoglobin
was 8.0 on 12/01. Small hemorrhoid and anal fissure on rectal exam. As per GI, painless rectal bleeding, likely diverticular and likely resolved. There has been acute blood loss anemia, with a mild drop from 8-7.6. Recent admissions for sepsis
due to right lower extremity wound (11/26/24). She uses Eliquis for her A-fib, but that was held until she is more stable and can advance her diet at which point it will be resumed. Postpone colonoscopy at this time given her recent admission for
sepsis, comorbidities, advanced age, and since bleeding has stopped. As long as patient remains stable, colonoscopy can be discussed as outpatient. She was prescribed HC cream for hemorrhoids. This morning patient states she is doing fine, she
denies all constitutional symptoms but admits that she has not had a bowel movement. She is assured that she can be discharged now and later when she had a bowel movement, it may have a little blood in it. Patient states that she will watch out for
it if it does occur. No other new events were reported from the day. Patient is awaiting discharge.
Discharge Plan
-
Patient Disposition: Home (Routine Discharge)
Discharge Diagnosis/Procedures: Painless diverticular bleeding, right lower extremity venous stasis wounds, essential hypertension, hyperlipidemia, acute blood loss anemia, paroxysmal atrial fibrillation, chronic heart failure with preserved
ejection fraction, restless leg syndrome, neuropathy, gastrointestinal esophageal reflux disorder, hemorrhoids
Condition: Fair
Diet: Low Residue
Activity: As tolerated
Driving Restrictions: As prior to admission
Bathing Restrictions: None
Blood Work: cbc and cmp with pcp in one week
Other Services: VN
Activity Restrictions/Additional Instructions:
Wound Care Instructions
R leg: clean with soap and water, Vashe moistened gauze directly to wounds, ABD pads and kerlix daily and prn drainage.
If too painful upon removal can add adaptic under gauze.
Aquaphor to periwound daily
Jeovanny wrap knee high daily, can remove at bedtime
leg elevation when sitting
Follow up with current wound Dr.
Referrals:
Emory Quintero MD [Active, Gastroenterology] - in one to two weeks
Stef Flores MD [Family Provider, Family Practice] - in less than 1 week
Prescriptions:
New
hydrocortisone acetate 25 mg Suppository
25 mg UT HS Qty: 12 0RF
Continued
atorvastatin [Lipitor] 40 MG tablet
40 mg PO HS
ropinirole 2 MG tablet
4 mg PO TID
Patient Comments:
09/12/24: Pt states she thinks she takes 2 tablets Q6H but last confirmed dose in [facility] is [address] Becker. No pharmacy fill history available
Eliquis 5 MG tablet
5 mg PO BID
pregabalin 150 mg capsule
150 mg PO BID
omeprazole 40 mg capsule,delayed release(DR/EC)
40 mg PO DAILY
albuterol sulfate 90 mcg/actuation HFA aerosol inhaler
2 puff inhalation R Q4HPRN PRN (Reason: sob wheezing)
tramadol 50 mg tablet
50 mg PO Q4HPRN PRN (Reason: moderate pain)
Patient Comments:
11/27/2024: Pt states she takes 2 tabs every time, Tramadol is prescribed as 1 tab.
bumetanide 0.5 mg tablet
0.5 mg PO MOWEFR PRN (Reason: increased edema )
Vashe 0.033 % irrigation solution
1 irrig irrigation DAILY PRN (Reason: wound care) 30 Days Qty: 5700 0RF
polyethylene glycol 3350 17 gram Powder In Packet
17 g PO DAILYPRN PRN (Reason: constipation) Qty: 1 0RF
miconazole nitrate [Miconazorb AF] 2 % Powder
1 applic topical BID Qty: 1 0RF
bisacodyl 10 mg Suppository
10 mg UT Q48H PRN (Reason: CONSTIPATION) Qty: 12 0RF
dextromethorphan-guaifenesin 10-100 mg/5 mL Syrup
10 ml PO Q4HPRN PRN (Reason: cough) Qty: 0 0RF
metoprolol succinate [Toprol XL] 25 mg tablet extended release 24 hr
25 mg PO HS Qty: 0 0RF
Discontinued
miconazole nitrate [Miconazorb AF] 2 % powder
1 applic topical BIDPRN PRN (Reason: b/l breasts and abd folds)
Discharge Orders:
Discharge Patient (As Directed); Ordered 12/08/24
Ordered By: Kayode Alfred
Discharge Date and Time
Discharge Date/Time: 12/08/24 20:57
Print Language: SINHALA

Documented by User: Jude Perez MD 12/08/24 22:42
Discharge Summary
Discharge Data
Date of Admission: 12/06/24
Date of Discharge: 12/08/24
Discharge Plan
-
Patient Disposition: Home (Routine Discharge)
Discharge Diagnosis/Procedures: Painless diverticular bleeding, right lower extremity venous stasis wounds, essential hypertension, hyperlipidemia, acute blood loss anemia, paroxysmal atrial fibrillation, chronic heart failure with preserved
ejection fraction, restless leg syndrome, neuropathy, gastrointestinal esophageal reflux disorder, hemorrhoids
Condition: Fair
Diet: Low Residue
Activity: As tolerated
Driving Restrictions: As prior to admission
Bathing Restrictions: None
Blood Work: cbc and cmp with pcp in one week
Other Services: VN
Activity Restrictions/Additional Instructions:
Wound Care Instructions
R leg: clean with soap and water, Vashe moistened gauze directly to wounds, ABD pads and kerlix daily and prn drainage.
If too painful upon removal can add adaptic under gauze.
Aquaphor to periwound daily
Jeovanny wrap knee high daily, can remove at bedtime
leg elevation when sitting
Follow up with current wound Dr.
Referrals:
Emory Quintero MD [Active, Gastroenterology] - in one to two weeks
Stef Flores MD [Family Provider, Family Practice] - in less than 1 week
Prescriptions:
New
hydrocortisone acetate 25 mg Suppository
25 mg UT HS Qty: 12 0RF
Continued
atorvastatin [Lipitor] 40 MG tablet
40 mg PO HS
ropinirole 2 MG tablet
4 mg PO TID
Patient Comments:
09/12/24: Pt states she thinks she takes 2 tablets Q6H but last confirmed dose in [facility] is [address] Becker. No pharmacy fill history available
Eliquis 5 MG tablet
5 mg PO BID
pregabalin 150 mg capsule
150 mg PO BID
omeprazole 40 mg capsule,delayed release(DR/EC)
40 mg PO DAILY
albuterol sulfate 90 mcg/actuation HFA aerosol inhaler
2 puff inhalation R Q4HPRN PRN (Reason: sob wheezing)
tramadol 50 mg tablet
50 mg PO Q4HPRN PRN (Reason: moderate pain)
Patient Comments:
11/27/2024: Pt states she takes 2 tabs every time, Tramadol is prescribed as 1 tab.
bumetanide 0.5 mg tablet
0.5 mg PO MOWEFR PRN (Reason: increased edema )
Vashe 0.033 % irrigation solution
1 irrig irrigation DAILY PRN (Reason: wound care) 30 Days Qty: 5700 0RF
polyethylene glycol 3350 17 gram Powder In Packet
17 g PO DAILYPRN PRN (Reason: constipation) Qty: 1 0RF
miconazole nitrate [Miconazorb AF] 2 % Powder
1 applic topical BID Qty: 1 0RF
bisacodyl 10 mg Suppository
10 mg UT Q48H PRN (Reason: CONSTIPATION) Qty: 12 0RF
dextromethorphan-guaifenesin 10-100 mg/5 mL Syrup
10 ml PO Q4HPRN PRN (Reason: cough) Qty: 0 0RF
metoprolol succinate [Toprol XL] 25 mg tablet extended release 24 hr
25 mg PO HS Qty: 0 0RF
Discontinued
miconazole nitrate [Miconazorb AF] 2 % powder
1 applic topical BIDPRN PRN (Reason: b/l breasts and abd folds)
Discharge Orders:
Discharge Patient (As Directed); Ordered 12/08/24
Ordered By: Kayode Alfred
Discharge Date and Time
Discharge Date/Time: 12/08/24 20:57
Print Language: SINHALA
--- NOTE | 2024-12-08 09:39 | W.PN.GI.CBS2 ---
Today's Communication / Plan
-
No further bleeding
Hgb stable after 1 unit PRBC
Tolerating diet
Probable diverticular bleed
OK for d/c from GI standpoint
Told her she can f/u with me in office to discuss whether or not to do colonoscopy eventually with her comorbidities
Will sign off
Assessment / Plan
-
Summary: 84yo female presents with large amount of BRBPR on 12/04, followed by less bleeding. No abd pain. Was recently hospitalized 11/26-12/01 and also September for sepsis related to R LE wound. Colonoscopy 2007- diverticulosis, hemorrhoids. Age
35 she had colon resection for endometriosis requiring colostomy that was subsequently reversed, followed by hysterectomy. Hgb on admission 7.6, repeat 8.7 after 1 unit PRBC. D/C Hgb was 8.0 on 12/01. Small hemorrhoid and anal fissure on rectal
exam
Impresion:
Painless rectal bleeding, likely diverticular and likely resolved
Acute blood loss anemia. Mild drop from 8 to 7.6
Recent admissions for sepsis due to R LE wound
Afib on Eliquis
s/p colon resection for endometriosis age 35
Diverticulosis
L AKA
CHF
Subjective
Subjective
Date of Service: December 08, 2024
No further bleeding
Objective
Data Reviewed
Laboratory Data:
Laboratory Results
12/08/24 06:10
12/08/24 06:10
Laboratory Results
PT 14.6 Sec (11.4-14.6) 12/07/24 08:39
INR 1.11 12/07/24 08:39
Magnesium 1.8 mg/dl (1.6-2.3) 12/08/24 06:10
Total Bilirubin 0.5 mg/dl (0.2-1.3) 12/08/24 06:10
AST 20 U/L (14-36) 12/08/24 06:10
ALT 14 U/L (0-35) 12/08/24 06:10
Alkaline Phosphatase 74 U/L (38-126) 12/08/24 06:10
Vital Signs and I&O:
Vital Signs
Temp Pulse Resp BP Pulse Ox
97.8 F 104 16 139/58 92
12/08/24 07:48 12/08/24 07:48 12/08/24 07:48 12/08/24 07:48 12/08/24 07:48
I&O
12/07/24 12/08/24 12/09/24
06:59 06:59 06:59
Intake Total 250 / 250 240 / 240
Balance 250 / 250 240 / 240
Physical Exam
Physical Exam
GI: Soft, Non Distended and Non Tender
Extremities: Other (L AKA, R LE wound)
[2024-12-08] MEDS: ULTRAM 50 MG PO (10:57)
[2024-12-08 11:20] VITALS: BP 130/89
--- NOTE | 2024-12-08 12:40 | WOUNDNOTE ---
R LATERAL LOWER LEG
--- NOTE | 2024-12-08 12:40 | WOUNDNOTE ---
R MEDIAL POSTERIOR LOWER LEG
--- NOTE | 2024-12-08 12:42 | WOUNDNOTE ---
[facility] RN note: Patient admitted with Rectal bleeding.
See H&P for complete history. Lives with , has addictions counselor.
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
Wound Location and type/assessment: Patient known to service, last seen 11/28/24 for chronic R leg venous ulcers. Patient states she has had these ulcers for 8 years and they have never healed. Last seen at [facility] by Dr. Hoskins this past October,
for same R leg venous ulcers. Patient states she does not go to wound center anymore, follows with a different company but did not recall the name. L AKA site intact, turned patient with assist of PCT, sacrum and heel intact, chronic discolored skin
from sitting. Compared to last seen, R leg circumferential wounds spice cleaner, with thin soto base of slough, moderate drainage and mild odor. Periwound with dry flaky skin, uses Aquaphor at home, compression with jeovanny wrap daily, patient reports.
Appetite: Fair
Pressure redistribution devices in place: On air mattress, pillow under R leg. Leg elevation.
Plan: Dressings changed to right leg and right dorsal foot with Vashe moistened gauze, ABD pads and kerlix. Patient agreeable to try Vashe directly to wound without adaptic to help clean up wound beds. Jeovanny wrap knee high applied. Recommended to
patient to get a biopsy of R leg wounds if not already done. JANEY Tilley updated on plan, will confirm orders with hospitalist. Will update discharge instructions, patient for discharge later today.
Note to case management of equipment requested for discharge: None.
Recommend follow up at new wound care center upon discharge.
--- NOTE | 2024-12-08 14:10 | CM ---
CM met with Abi at bedside to discuss discharge. She is ready to go home and will have [facility] as well as a private caregiver. Pt has a van that has a wheelchair lift and will go home via van.
IMM reviewed with Abi who gave verbal consent.
Plan: Home with [facility]
[2024-12-08 15:33] VITALS: BP 121/64
== END 2024-12-08 20:57 | disposition home health service (06) | DRG 378 ==
LOC: 3 WEST ACU 20:11
PROVIDERS: Emergency Medicine; Internal Medicine; ADMITTING PHYSICIAN Internal Medicine; ATTENDING PHYSICIAN Family Medicine; CONSULT PHYSICIAN Specialist; EMERGENCY PHYSICIAN Student in an Organized Health Care Education/Training Program; FAMILY PHYSICIAN Family Medicine
PROC: 30233N1 Transfusion of Nonautologous Red Blood Cells into Peripheral Vein, Percutaneous Approach (ICD-10-PCS; 2024-12-06)
DX: K57.31 Diverticulosis of large intestine without perforation or abscess with bleeding (principal); D62 Acute posthemorrhagic anemia; I50.32 Chronic diastolic (congestive) heart failure; E87.1 Hypo-osmolality and hyponatremia; D68.32 Hemorrhagic disorder due to extrinsic circulating anticoagulants; D63.8 Anemia in other chronic diseases classified elsewhere; I87.8 Other specified disorders of veins; K21.9 Gastro-esophageal reflux disease without esophagitis; G62.9 Polyneuropathy, unspecified; G25.81 Restless legs syndrome; I11.0 Hypertensive heart disease with heart failure; K59.00 Constipation, unspecified; I48.0 Paroxysmal atrial fibrillation; E78.00 Pure hypercholesterolemia, unspecified; I87.2 Venous insufficiency (chronic) (peripheral); K60.2 Anal fissure, unspecified; K64.8 Other hemorrhoids; M48.00 Spinal stenosis, site unspecified; Z79.01 Long term (current) use of anticoagulants; Z79.899 Other long term (current) drug therapy; Z86.14 Personal history of Methicillin resistant Staphylococcus aureus infection; Z86.718 Personal history of other venous thrombosis and embolism; Z99.3 Dependence on wheelchair
CPT/HCPCS: 36430; 80048; 80053; 83735; 85014; 85018; 85025; 85610; 86850; 86900; 86901; 86920; 97162; 99291; P9016

== ENCOUNTER 2025-01-01 14:37 | Emergency (ER) | payer MEDICARE, BC, SELFPAY ==
[2025-01-01 14:40] VITALS: BP 136/69
--- NOTE | 2025-01-01 15:10 | ED.GENMED ---
History of Present Illness
General
Chief Complaint: Abdominal Symptoms
Source: patient
Exam Limitations: none
Time Seen by Provider: 01/01/25 15:07
Nursing documentation reviewed up to this point in time: agreed with
History of Present Illness
History of Present Illness:
Patient is 84-year-old female past medical history of A-fib on Eliquis heart failure chronic venous insufficiency with chronic right leg wound history of left AKA presents to the ER for nausea and vomiting since Sunday. She reports for the past 2
days she has vomited multiple times today yesterday vomited 6 times today 4. She denies any diarrhea she did have a normal bowel movement today which was small. It was formed. She has had abdominal pressure/mild pain. No other sick contacts.
She denies any fevers.
Past History
Past History
ED Past Medical History: Arrthythmia, HTN, Hypercholesterolemia, Other (DVT) and Other (DVT, cervical disc disease, osteoarthritis, MRSA, DVT/PE); Negative IDDM
ED Past Surgical History: Bowel resection, Gynecological, Orthopedic (Cervical-lumbar fusion, right shoulder replacement 2014, left knee replacement) and Other (Partial thyroidectomy. Multiple dental procedures)
Social History
Tobacco: Non-smoker
Alcohol: None
Drug: None
Personal:
Living: with family
Employment: Retired
Family History
Family History: Hypertension
Phy Exam
General Physical Exam
General Presentation: no apparent distress
General age: appears stated age
General Skin: warm and dry
General Habitus: normal
General Mental: alert
General Hydration: dry mucous membranes
Cardiovascular Exam
Cardiovascular Exam: regular rate/rhythm, no murmur and normal peripheral pulses
Pulmonary Exam
Pulmonary Exam: lungs clear and no respiratory distress
Gastrointestinal Exam
Gastrointestinal Exam: soft
Neurological Exam
Neurological Exam: alert and oriented x3
Course
Orders/Labs/Results
Orders:
Orders
01/01/25 15:10
Cardiac Monitoring- Treatment ONCE
IV Insert/Care/Rem.- Treatment PRN
01/01/25 15:17
0.9% Sodium Chloride 1000 ml [Nss] 1,000 ml IV BOLUS
Ondansetron Injectable [Zofran] 4 mg IV NOW STA
01/01/25 16:01
Complete Blood Count/With Diff Urgent
Comprehensive Metabolic Panel Urgent
01/01/25 17:15
CT Abd/pelvis W Iv Cont Urgent
Comment:
Reason For Exam: abd pain/vomiting
01/01/25 18:07
Urinalysis Reflex To Culture Urgent
Date Specimen was Collected: 01/01/25
Time Specimen was Collected: 18:05
Urine Microscopic Reflex Cult Urgent
Urine Culture Urgent
WILLIAM Source: U
Specimen Description:
Date Specimen was Collected: 01/01/25
Time Specimen was Collected: 18:05
01/01/25 20:10
Vital Signs- Treatment ONCE
Frequency: Once
Abnormal Lab Results
01/01/25 01/01/25
16:01 18:07
Hgb 9.7 L g/dL
(12.0-16.0)
Hct 33.8 L %
(37.0-47.0)
MCV 77.3 L fL
(81.0-99.0)
MCH 22.2 L pg
(27.0-31.0)
MCHC 28.7 L g/dL
(33.0-37.0)
RDW 18.1 H %
(11.5-14.5)
Sodium 134 L mmol/L
(135-145)
Carbon Dioxide 32 H mmol/L
(22-30)
Glucose 102 H mg/dl
(70-99)
Total Protein 6.2 L g/dl
(6.3-8.2)
Albumin 3.3 L g/dl
(3.5-5.0)
Urine Bacteria (Reflex) Many A
(Negative)
Urine Albumin (Reflex) 1+ A
(Neg - Trace)
01/01/25 16:01
01/01/25 16:01
Vital Signs
Initial and Last Documented VS:
Initial Vital Signs
Temp Pulse Resp BP Pulse Ox
97.7 F 111 20 136/69 96
01/01/25 14:40 01/01/25 14:40 01/01/25 14:40 01/01/25 14:40 01/01/25 14:40
Last Documented Vital Signs
Temp Pulse Resp BP Pulse Ox
97.7 F 111 20 123/53 93
01/01/25 14:40 01/01/25 14:40 01/01/25 14:40 01/01/25 17:00 01/01/25 16:30
MDM/Problems Addressed
Differential Diagnosis Includes:
Not limited to viral syndrome gastroenteritis dehydration electrolyte abnormality
MDM/Problems Addressed:
Patient is a 84-year-old female presents nausea vomiting for the past several days. She has mild abdominal cramping she denies any fevers and is afebrile. Hemoglobin is stable at 9.7 urinalysis negative for infection sodium 134 potassium normal
normal renal function. ct negative for acute findings. Patient was given Zofran fluids feeling much better tolerated water here feels well up to go home. Will DC with Zofran at home and close outpatient primary doctor.
*Radiology
Radiology exam reviewed: radiology read reviewed
*Pulse Oximetry
SaO2: 96
Oxygen Mode of Delivery: Room air
Patient hypoxic: no
*Critical Care Note
Total Time (30-74mins, 75-104mins- exclusive of procedures): Not Applicable
ED Attending Note
-
Portions of this chart may have been created with voice recognition software.� Occasional wrong word or��sound alike� substitutions may have occurred due to the inherent limitations of voice recognition software.
Discharge Plan
Departure
Patient Disposition: Home (Routine Discharge)
Date of Disposition: 01/01/25
Time of Disposition: 20:10
Patient with high blood pressure during this ER visit?: Yes
Condition: Fair
Covid-19: Not Applicable
Discharge Problem:
Nausea & vomiting
Instructions: Clear Liquid Diet, Nausea and Vomiting, Adult (DC)
Prescriptions:
New
ondansetron 4 mg tablet,disintegrating
4 mg PO Q8H PRN (Reason: nausea and vomiting) Qty: 10 0RF
No Action
atorvastatin [Lipitor] 40 MG tablet
40 mg PO HS
ropinirole 2 MG tablet
4 mg PO TID
Patient Comments:
09/12/24: Pt states she thinks she takes 2 tablets Q6H but last confirmed dose in [facility] is [address] Becker. No pharmacy fill history available
Eliquis 5 MG tablet
5 mg PO BID
pregabalin 150 mg capsule
150 mg PO BID
omeprazole 40 mg capsule,delayed release(DR/EC)
40 mg PO DAILY
albuterol sulfate 90 mcg/actuation HFA aerosol inhaler
2 puff inhalation R Q4HPRN PRN (Reason: sob wheezing)
tramadol 50 mg tablet
50 mg PO Q4HPRN PRN (Reason: moderate pain)
Patient Comments:
11/27/2024: Pt states she takes 2 tabs every time, Tramadol is prescribed as 1 tab.
bumetanide 0.5 mg tablet
0.5 mg PO MOWEFR PRN (Reason: increased edema )
Vashe 0.033 % irrigation solution
1 irrig irrigation DAILY PRN (Reason: wound care) 30 Days Qty: 5700 0RF
polyethylene glycol 3350 17 gram Powder In Packet
17 g PO DAILYPRN PRN (Reason: constipation) Qty: 1 0RF
miconazole nitrate [Miconazorb AF] 2 % Powder
1 applic topical BID Qty: 1 0RF
bisacodyl 10 mg Suppository
10 mg ID Q48H PRN (Reason: CONSTIPATION) Qty: 12 0RF
dextromethorphan-guaifenesin 10-100 mg/5 mL Syrup
10 ml PO Q4HPRN PRN (Reason: cough) Qty: 0 0RF
hydrocortisone acetate 25 mg Suppository
25 mg ID HS Qty: 12 0RF
metoprolol succinate [Toprol XL] 25 mg tablet extended release 24 hr
25 mg PO HS Qty: 0 0RF
Referrals:
Stef Flores MD [Family Provider, Family Practice]
Activity Restrictions/Additional Instructions:
As discussed a prescription for Zofran was sent to your pharmacy you may take as needed for nausea vomiting. Please follow-up closely with your family doctor in the next 2 days return if any worsening of symptoms.
Interventions
Interventions:
*Risk Screen - Suicide Last Done: 01/01/25 14:40
*General Assessment Last Done: 01/01/25 16:32
*Neglect/Abuse Screening Last Done: 01/01/25 14:40
*ED- Fall Risk Assessment Last Done: 01/01/25 16:32
*ED COVID-19 Vaccine History Last Done: 01/01/25 19:26
*ED Influenza Vaccine History Last Done: 01/01/25 19:26
VC-[id number] Assessment Last Done: 01/01/25 19:54
Discharge Date and Time
Print Language: SWEDISH
[2025-01-01] MEDS: NSS 1000 IV (16:06)
[2025-01-01] MEDS: ZOFRAN 4 MG IV (16:06)
[2025-01-01 16:07] VITALS: BP 108/55
[2025-01-01 16:17] LABS: Hematocrit 33.8 % (37.0-47.0); Hemoglobin 9.7 g/dL (12.0-16.0); Mean Corp Hgb Conc. 28.7 g/dL (33.0-37.0); Mean Corpuscular Volume 77.3 fL (81.0-99.0); Nucleated Red Blood Cells % 0 %; Platelet Count 306 10^3/uL (130-400); Red Cell Dist. Width 18.1 % (11.5-14.5)
[2025-01-01 16:30] LABS: ALT (SGPT) 15 U/L (0-35); AST (SGOT) 22 U/L (14-36); Albumin 3.3 g/dl (3.5-5.0); Alkaline Phosphatase 86 U/L (38-126); Blood Urea Nitrogen 10 mg/dl (7-17); Calcium 8.8 mg/dl (8.4-10.2); Carbon Dioxide 32 mmol/L (22-30); Chloride 100 mmol/L (98-107); Glucose 102 mg/dl (70-99); Potassium 4.7 mmol/L (3.5-5.1); Sodium 134 mmol/L (135-145); Total Protein 6.2 g/dl (6.3-8.2); eGFR > 60.00
[2025-01-01 17:00] VITALS: BP 123/53
[2025-01-01 17:02] LABS: Normal RBC Morphology No
[2025-01-01 17:05] LABS: Anisocytosis 2+; Hypochromasia 2+; Microcytosis 1+
[2025-01-01 17:06] LABS: Ovalocytes 1+
[2025-01-01 18:19] LABS: Urine Character Clear (Clear)
[2025-01-01 18:28] LABS: Urine Red Blood Cell 0-2 /HPF (0-2); Urine White Cell 0-2 /HPF (0-5)
[2025-01-01 20:15] VITALS: BP 105/53
== END 2025-01-01 20:45 | disposition home or self-care (01) ==
LOC: EMR 14:37
PROVIDERS: Nurse Practitioner; EMERGENCY PHYSICIAN Emergency Medicine; FAMILY PHYSICIAN Family Medicine
DX: R11.2 Nausea with vomiting, unspecified (principal); I48.91 Unspecified atrial fibrillation; I11.0 Hypertensive heart disease with heart failure; I50.9 Heart failure, unspecified; E78.00 Pure hypercholesterolemia, unspecified; I87.2 Venous insufficiency (chronic) (peripheral); M50.30 Other cervical disc degeneration, unspecified cervical region; M19.90 Unspecified osteoarthritis, unspecified site; Z79.01 Long term (current) use of anticoagulants; Z89.612 Acquired absence of left leg above knee; Z86.718 Personal history of other venous thrombosis and embolism; Z86.711 Personal history of pulmonary embolism; Z86.14 Personal history of Methicillin resistant Staphylococcus aureus infection; Z96.611 Presence of right artificial shoulder joint; Z96.652 Presence of left artificial knee joint; Z82.49 Family history of ischemic heart disease and other diseases of the circulatory system
CPT/HCPCS: 99284; 96374; 96361; 74177; 80053; 81003; 81015; 85025; 87086; Q9967